=== PATIENT | female | born 1985 | race Caucasian/White ===

== ENCOUNTER 2017-12-05 15:11 | Emergency (ER) | payer MEDICAID, SELFPAY ==
[2017-12-05 15:13] VITALS: BP 139/75; PULSE 122; RESP 17; TEMP 37.7; O2SAT 98; BMI 22.1
[2017-12-05 15:21] VITALS: BP 126/92; PULSE 121; RESP 12; O2SAT 98
--- NOTE | 2017-12-05 15:26 | EKG12_ITS ---
Test Reason : CP Blood Pressure : / mmHG Vent. Rate : 087 BPM Atrial Rate : 087 BPM P-R Int : 126 ms QRS Dur : 078 ms QT Int : 344 ms P-R-T Axes : 057 064 067 degrees QTc Int : 413 ms Normal sinus rhythm Normal ECG Confirmed by DAJUAN LEON, JOURDAN ([id number]), movie editor DEMETRIO ROMERO ([id number] on 12/06/2017 2:28:34 PM Referred By: KYRIE Confirmed By:JOURDAN GRAFF MD
[2017-12-05] MEDS: 0.9% Normal Saline 1,000 ML 1000 ML IV (15:32)
--- NOTE | 2017-12-05 15:32 | ED.VISSUMM ---
- ER Visit Summary Date of Service: 12/05/17 Chief Complaint: Cough, chest pain, fever History of Present Illness: The patient is a 32 F 2 week history cough, chest pain, subjective fevers. Temperatures 99. States has pain with deep breath and coughing in her chest. Indication patient initially saw the urgent care 2 weeks ago had a 10 day course of Zithromax. It felt better for 2 days, symptoms came back 3 days ago. Quit smoking 4 months ago. She was on Depo-Provera, last menstrual period was in October. Urine frequency. States minimal sputum. No recent travel, surgeries, or immobilizations. No history of PE or DVT. History of general anxiety disorder. No current daily medications. Denies history of diabetes, hypertension hypercholesterolemia. Physical Examination: General: Alert and oriented ?3, no acute distress HEENT: Normocephalic, atraumatic. Moist mucosa membranes Neck: supple, nontender. Cardiovascular: Regular tachycardic rate and rhythm, no murmurs Respiratory: Normal breath sounds, symmetric, no distress Abdomen: Soft, nontender, nondistended Extremities: Nontender, no edema, pulses intact ?4 Neuro: no focal neurological deficits. Test Results: EKG sinus rate of 87, no ST or T-wave changes. Troponin negative. D-dimer negative. Labs negative. Chest x-ray 2 views no acute process. Emergency Department Course and Treatment: Patient tachycardic on evaluation. Complaint of chest symptoms pain with deep breaths. Low risk Wells criteria for PE. D-dimer obtained was negative. EKG cardiac workup negative. Chest x-ray negative. Discussed with patient likely recurrent bronchitis symptoms. Unclear why she was treated for 10 days of Zithromax initially. She has no COPD history. She quit smoking 4 months ago. Treated with Toradol for discomfort. She continue Tylenol or NSAIDs at home. She will monitor symptoms. Heart scores a 1. Discussed viral syndrome at this time. There is no pneumonia on x-ray. No indications for antibiotics. She will follow-up with PCP for reevaluation. Return if any worsening symptoms. Treatment Plan: Monitoring Disposition: Discharge Impression: 1. Atypical chest pain 2. Acute bronchitis This note was generated with [employer] software. It may contain incorrect words, spelling, and punctuation that were not noted in review of the chart prior to signing ED Disposition - Plan for ED Patient: Disposition: Home or Assisted Living Chief Complaint: Chest Other Diagnosis: Atypical chest pain, Acute bronchitis Instructions: Acute Bronchitis, ED Chest Pain Atypical Unkn Cause Referrals: Blaise Wetzel DO [Primary Care Provider] - 5-7 Days
--- NOTE | 2017-12-05 15:37 | ED.DCSUM_ITS ---
- ER Visit Summary Date of Service: 12/05/17 Chief Complaint: Cough, chest pain, fever History of Present Illness: The patient is a 32 F 2 week history cough, chest pain, subjective fevers. Temperatures 99. States has pain with deep breath and coughing in her chest. Indication patient initially saw the urgent care 2 weeks ago had a 10 day course of Zithromax. It felt better for 2 days, symptoms came back 3 days ago. Quit smoking 4 months ago. She was on Depo- Provera, last menstrual period was in October. Urine frequency. States minimal sputum. No recent travel, surgeries, or immobilizations. No history of PE or DVT. History of general anxiety disorder. No current daily medications. Denies history of diabetes, hypertension hypercholesterolemia. Physical Examination: General: Alert and oriented ?3, no acute distress HEENT: Normocephalic, atraumatic. Moist mucosa membranes Neck: supple, nontender. Cardiovascular: Regular tachycardic rate and rhythm, no murmurs Respiratory: Normal breath sounds, symmetric, no distress Abdomen: Soft, nontender, nondistended Extremities: Nontender, no edema, pulses intact ?4 Neuro: no focal neurological deficits. Test Results: EKG sinus rate of 87, no ST or T-wave changes. Troponin negative. D-dimer negative. Labs negative. Chest x-ray 2 views no acute process. Emergency Department Course and Treatment: Patient tachycardic on evaluation. Complaint of chest symptoms pain with deep breaths. Low risk Wells criteria for PE. D-dimer obtained was negative. EKG cardiac workup negative. Chest x- ray negative. Discussed with patient likely recurrent bronchitis symptoms. Unclear why she was treated for 10 days of Zithromax initially. She has no COPD history. She quit smoking 4 months ago. Treated with Toradol for discomfort. She continue Tylenol or NSAIDs at home. She will monitor symptoms. Heart scores a 1. Discussed viral syndrome at this time. There is no pneumonia on x-ray. No indications for antibiotics. She will follow-up with PCP for reevaluation. Return if any worsening symptoms. Treatment Plan: Monitoring Disposition: Discharge Impression: 1. Atypical chest pain 2. Acute bronchitis This note was generated with [employer] software. It may contain incorrect words, spelling, and punctuation that were not noted in review of the chart prior to signing ED Disposition - Plan for ED Patient: Disposition: Home or Assisted Living Chief Complaint: Chest Other Diagnosis: Atypical chest pain, Acute bronchitis Instructions: Acute Bronchitis, ED Chest Pain Atypical Unkn Cause Referrals: Blaise Wetzel DO [Primary Care Provider] - 5-7 Days
[2017-12-05 15:45] LABS: Absolute Lymphocyte Count 3.12 X10^3/ul (0.83-4.51); Basophil# 0.03 X10^3/uL; Basophil% 0.3 % (0-1); Eosinophil# 0.08 X10^3/uL; Eosinophils% 0.8 % (0-5); Hematocrit 38.5 % (37-47); Hemoglobin 12.7 g/dl (12.0-15.0); Lymphocyte # 3.12 X10^3/ul (4.0); Lymphocyte % 31.9 % (19-41); Mean Corpuscular Hgb 29.5 pg (27.0-32.0); Mean Corpuscular Volume 89.3 fL (81-99); Mean Platelet Vol. 10.1 fl (6.2-12.0); Monocyte# 0.56 X10^3/uL; Monocyte% 5.7 % (0-10); Neutrophil # 5.97 X10^3/uL (2.7-7.7); Platelet Count 241 K/mm3 (150-450); RBC Distribution Width CV 13.4 % (11.6-14.6); RBC Distribution Width SD 43.2 fl (35.1-43.9); Red Blood Count 4.31 M/mm3 (4.2-5.4); White Blood Count 9.8 K/mm3 (4.4-11.0)
--- NOTE | 2017-12-05 15:50 | RAD_ITS ---
STUDY: X-RAY CHEST REASON FOR EXAM: Female, 32 years old. Cough, chest discomfort and low grade fever for several weeks. TECHNIQUE: PA and lateral views of the chest. COMPARISON: February 07, 2008. FINDINGS: Telemetry wires overlie the chest. The lungs are mildly hyperexpanded. There is chronic interstitial coarsening without focal mass or infiltrate. There is resolution of the left pleural effusion seen on the prior study. Normal size heart. Normal mediastinum and gala. Normal visualized pulmonary arteries. Normal visualized aortic arch and descending thoracic aorta. Normal visualized thoracic spine. Normal visualized ribs, clavicles, and shoulders. There is no demonstrated abnormality of the visualized soft tissue structures of the upper abdomen. Cholecystectomy clips are seen in the right upper quadrant. RAD/Chest PA and Lateral IMPRESSION: No acute cardiopulmonary disease. Electronically Signed: Seymour Villalba DO at 16:16 EST Tel [phone], Service support ,
[2017-12-05 15:55] LABS: POSITIVE COUNT NO; POSITIVE DIFFERENTIAL NO; POSITIVE MORPHOLOGY NO
[2017-12-05 16:04] LABS: D-Dimer Quantitative (DVT/PE) 0.37 FEU/ug/m (0.27-0.49)
[2017-12-05 16:09] LABS: Anion Gap 9 (5-15); BUN 11 mg/dL (7-18); BUN/Creat Ratio 14.4 RATIO (10-20); Calcium,Total 8.7 mg/dL (8.5-10.1); Chloride 107 mmol/L (98-107); Creatinine, Serum 0.76 mg/dL (0.55-1.02); EST Glomerular Filtration Rate 92 mL/min (>60); Est Glom Filt Rate - Afr Amer 111 mL/min (>60); Estimated Creatinine Clearance 101.43 ml/min; Glucose 89 mg/dL (74-106); Potassium 3.8 mmol/L (3.5-5.1); Sodium Level 139 mmol/L (136-145)
[2017-12-05 17:15] LABS: Color, Urine Yellow (Yellow); Glucose, Dipstick Normal (Normal); Ketone-Dipstick Negative (Negative); Leukocyte Esterase-Dipstick 25 /ul (Negative); Nitrite-Dipstick Negative (Negative); Occult Blood-Urine 25 /ul (Negative); Protein-Dipstick Negative (Negative); Urine Bilirubin Dipstick Negative (Negative); Urine Clarity Cloudy (Clear); Urine Urobilinogen Normal (Normal)
[2017-12-05 17:33] LABS: Internal QC Validated? YES +Cl - CLEAR BKGD; Pregnancy, Urine Negative Negative
[2017-12-05] MEDS: Ketorolac 30 MG/ML Syringe IV (17:39)
[2017-12-05 17:50] LABS: Squamous Epithelial Cells - UA 0-5 SEEN /hpf (5-10)
[2017-12-05 17:51] LABS: Mucous, Urine RARE /hpf (<or=2+)
[2017-12-05 17:52] LABS: Bacteria 1+ /hpf (None Seen); Red Blood Cells-Urine 0-5 SEEN /hpf (0-5); White Blood Cells 0-5 SEEN /hpf (0-5)
[2017-12-05 18:34] VITALS: BP 111/68; PULSE 90; RESP 18; O2SAT 98
== END 2017-12-05 18:38 | disposition home or self-care (01) ==
PROVIDERS: Emergency Provider Emergency Medicine; Family Provider Preventive Medicine Occupational Medicine; PCP Preventive Medicine Occupational Medicine
DX: J20.9 Acute bronchitis, unspecified (principal); R07.89 Other chest pain; Z87.891 Personal history of nicotine dependence; F41.1 Generalized anxiety disorder
CPT/HCPCS: 71046; 80048; 81001; 81025; 84484; 85025; 85379; 93005; 96361; 96374; 99284; J7030

== ENCOUNTER 2017-12-29 09:55 | Emergency (ER) | payer MEDICAID, SELFPAY ==
[2017-12-29 09:56] VITALS: BP 122/74; PULSE 91; RESP 14; TEMP 36.8; O2SAT 98; BMI 21.9
--- NOTE | 2017-12-29 10:13 | EKG12_ITS ---
Test Reason : PALPS Blood Pressure : / mmHG Vent. Rate : 076 BPM Atrial Rate : 076 BPM P-R Int : 114 ms QRS Dur : 080 ms QT Int : 360 ms P-R-T Axes : 055 070 074 degrees QTc Int : 405 ms Normal sinus rhythm Normal ECG Confirmed by DAJUAN LEON, JOURDAN ([id number]), script editor DEMETRIO ROMERO ([id number]) on 01/02/2018 1:30:06 PM Referred By: JAMIE Confirmed By:JOURDAN GRAFF MD
--- NOTE | 2017-12-29 10:19 | ED.VISSUMM ---
- ER Visit Summary Date of Service: 12/29/17 Chief Complaint: Palpitations History of Present Illness: The patient is a 32 F with heart palpitations. Symptoms started about 2 weeks ago. She has several episodes per day, lasting about 10 minutes. She feels her heart beating fast. She does feel a heaviness in her chest as well as a squeezing sensation. Currently, she is not having palpitations but she does feel a mild squeezing sensation in her chest. She feels lightheaded. Denies any sweats or nausea. Denies any trouble breathing. It sounds like she has a history of SVT and required cardioversion with adenosine in the past, but she does not remember the details. She denies any other cardiac history. Denies any history of PE or DVT. Denies any history of lung disease or thyroid disease. She quit smoking last year. Physical Examination: Vital signs unremarkable. Heart rate 91 and pulse ox 98%. Afebrile. Patient appears nontoxic and in no acute distress. Heart is regular. Lungs are clear. Skin normal in color. Pulses strong and equal. Calves soft and supple. Test Results: EKG, lab work, and chest x-ray are pending. Emergency Department Course and Treatment: Patient was placed on a monitor while awaiting results. Patient had no events on the monitor or worsening or change in her symptoms. Her EKG, CBC, BMP, troponin, TSH, and orthostatics were all unremarkable. I believe patient is appropriate for further outpatient care. I will refer her to her PCP and also cardiology. I advised her that she may need further outpatient testing, but there is no indication for admission at this point. She should return if she has any new issues. Treatment Plan: As above Disposition: Discharged Impression: 1. Heart palpitations This note was generated with [employer] dictation software. It may contain incorrect words, spelling, and punctuation that were not noted in review of the chart prior to signing ED Disposition - Plan for ED Patient: Chief Complaint: Palpitations Referrals: Blaise Wetzel DO [Primary Care Provider] -
--- NOTE | 2017-12-29 10:24 | RAD_ITS ---
STUDY: X-RAY CHEST REASON FOR EXAM: Female, 32 years old. Chest pain TECHNIQUE: Single AP portable view of the chest. COMPARISON: None. FINDINGS: The lungs are clear and expanded. There is no demonstrated pleural abnormality. Normal size heart. Normal mediastinum and gala. Normal visualized pulmonary arteries. Normal visualized aortic arch and descending thoracic aorta. Normal visualized thoracic spine. Normal visualized ribs, clavicles, and shoulders. There is no demonstrated abnormality of the visualized soft tissue structures of the upper abdomen. RAD/Chest 1 View (Portable) IMPRESSION: Normal x-ray examination of the chest. Electronically Signed: Kenia Rob MD at 10:55 EDT Tel , Service support ,
[2017-12-29 10:45] VITALS: BP 109/63; BP 111/68; BP 111/81; PULSE 70; PULSE 72; PULSE 87
[2017-12-29 10:55] LABS: Absolute Lymphocyte Count 2.26 X10^3/ul (0.83-4.51); Absolute Neutrophil Count 3.5 X10^3/uL (2.0-7.7); Basophil# 0.02 X10^3/uL; Basophil% 0.3 % (0-1); Eosinophil# 0.13 X10^3/uL; Hematocrit 39.4 % (37-47); Hemoglobin 12.6 g/dl (12.0-15.0); Lymphocyte # 2.26 X10^3/ul (4.0); Lymphocyte % 35.1 % (19-41); Mean Corpuscular Hgb 28.6 pg (27.0-32.0); Mean Corpuscular Volume 89.5 fL (81-99); Mean Platelet Vol. 10.2 fl (6.2-12.0); Monocyte# 0.57 X10^3/uL; Monocyte% 8.9 % (0-10); Neutrophil # 3.45 X10^3/uL (2.7-7.7); Neutrophil % 53.5 % (47-70); POSITIVE COUNT NO; POSITIVE DIFFERENTIAL NO; POSITIVE MORPHOLOGY NO; Platelet Count 219 K/mm3 (150-450); RBC Distribution Width CV 13.5 % (11.6-14.6); RBC Distribution Width SD 44.6 fl (35.1-43.9); White Blood Count 6.4 K/mm3 (4.4-11.0)
[2017-12-29 10:57] VITALS: O2SAT 99
[2017-12-29 11:13] LABS: Anion Gap 6 (5-15); BUN 7 mg/dL (7-18); BUN/Creat Ratio 10.9 RATIO (10-20); Calcium,Total 8.7 mg/dL (8.5-10.1); Chloride 110 mmol/L (98-107); Creatinine, Serum 0.64 mg/dL (0.55-1.02); EST Glomerular Filtration Rate 112 mL/min (>60); Est Glom Filt Rate - Afr Amer 136 mL/min (>60); Estimated Creatinine Clearance 120.45 ml/min; Glucose 104 mg/dL (74-106); Potassium 4.1 mmol/L (3.5-5.1); Sodium Level 143 mmol/L (136-145); Thyroid Stim Hormone (TSH) 1.69 uIU/mL (0.358-3.74)
[2017-12-29 11:18] LABS: Pregnancy, Serum, hCG Quali. NEGATIVE Negative (0-9 Nonpreg)
--- NOTE | 2017-12-29 11:43 | ED.DEP ---
ED Disposition - Plan for ED Patient: Chief Complaint: Palpitations Instructions: ED Palpitations Referrals: Blaise Wetzel DO [Primary Care Provider] - Trace Krause MD [STAFF PHYSICIAN] -
[2017-12-29 12:03] VITALS: BP 109/71; PULSE 71; RESP 18; O2SAT 99
== END 2017-12-29 12:04 | disposition home or self-care (01) ==
PROVIDERS: Emergency Provider Emergency Medicine; Family Provider Preventive Medicine Occupational Medicine; PCP Preventive Medicine Occupational Medicine
DX: R00.2 Palpitations (principal); Z87.891 Personal history of nicotine dependence
CPT/HCPCS: 71045; 80048; 84443; 84484; 84703; 85025; 93005; 99285; A4216

== ENCOUNTER 2018-03-08 12:17 | Emergency (ER) | payer MEDICAID, SELFPAY ==
[2018-03-08 12:19] VITALS: BP 115/84; PULSE 131; RESP 16; TEMP 37.1; O2SAT 98; BMI 21.9
--- NOTE | 2018-03-08 12:36 | ED.DCSUM_ITS ---
- ER Visit Summary Date of Service: 03/08/18 Chief Complaint: Abdominal pain History of Present Illness: The patient is a 33 F with a 2 day history of generalized abdominal cramping and some mild diarrhea. Now she has sharp pain in epigastric and left upper quadrant. She states it feels like her prior pancreatitis. She has had a couple episodes of vomiting. She denies any alcohol consumption in the last 2 years. She has had a prior cholecystectomy. Physical Examination: Vital signs are significant for tachycardia with a heart rate of 131, otherwise unremarkable. Patient sitting upright in bed. She is in no acute distress but does appear uncomfortable. Head neck examination is normal. Heart is regular rhythm but tachycardic. Lung sounds are clear. Abdomen is soft with tenderness in the epigastric region as well as left upper quadrant. She has no guarding or rebound on exam. Hypoactive bowel sounds are noted throughout. Test Results: CBC and chemistry studies normal. LFTs and lipase normal. test negative. Emergency Department Course and Treatment: Patient is given morphine, Zofran, and IV fluids. Repeat evaluation she reports her pain is improved but nausea starting to come back. She is given a second dose of Zofran. At this time patient be discharged home with injections to follow bland diet. She be given Zofran and limited oxycodone for home. At the time of discharge vital signs include blood pressure 109/74 and a heart rate of 87. Treatment Plan: [] Disposition: Discharge Impression: Abdominal pain, uncertain etiology This note was generated with [employer] dictation software. It may contain incorrect words, spelling, and punctuation that were not noted in review of the chart prior to signing ED Disposition - Plan for ED Patient: Disposition: Home or Assisted Living Chief Complaint: Abd Pain Instructions: ED Abdominal Pain Unkn Cause Prescriptions: Oxycodone [Oxyir] 5 mg PO Q4H PRN PRN 4 Days #14 tablet PRN Reason: Pain Ondansetron [Zofran Odt] 4 mg PO Q8H PRN PRN #10 tab PRN Reason: Nausea Referrals: Blaise Wetzel DO [Primary Care Provider] - 5-7 Days
[2018-03-08 12:49] LABS: Absolute Lymphocyte Count 1.28 X10^3/ul (0.83-4.51); Absolute Neutrophil Count 3.7 X10^3/uL (2.0-7.7); Basophil# 0.01 X10^3/uL; Basophil% 0.2 % (0-1); Eosinophil# 0.03 X10^3/uL; Eosinophils% 0.5 % (0-5); Hematocrit 40.3 % (37-47); Hemoglobin 13.5 g/dl (12.0-15.0); Lymphocyte # 1.28 X10^3/ul (4.0); Lymphocyte % 21.4 % (19-41); Mean Corp Hgb Conc 33.5 g/gl (32-36); Mean Corpuscular Hgb 29.7 pg (27.0-32.0); Mean Corpuscular Volume 88.6 fL (81-99); Mean Platelet Vol. 9.8 fl (6.2-12.0); Monocyte# 0.98 X10^3/uL; Monocyte% 16.4 % (0-10); Neutrophil # 3.67 X10^3/uL (2.7-7.7); Neutrophil % 61.3 % (47-70); Platelet Count 219 K/mm3 (150-450); RBC Distribution Width CV 13.6 % (11.6-14.6); RBC Distribution Width SD 43.9 fl (35.1-43.9); Red Blood Count 4.55 M/mm3 (4.2-5.4)
[2018-03-08] MEDS: 0.9% Normal Saline 1,000 ML 1000 ML IV (12:50)
[2018-03-08] MEDS: Morphine 4 MG/ML Syringe IV (12:50)
[2018-03-08] MEDS: Ondansetron 4 MG/2 ML Vial IV ×2 (12:50→14:57)
[2018-03-08 12:53] LABS: POSITIVE COUNT NO; POSITIVE DIFFERENTIAL NO; POSITIVE MORPHOLOGY NO
[2018-03-08 13:04] LABS: AST(SGOT) 24 U/L (15-37); Alanine Aminotransfer ALT/SGPT 34 U/L (13-56); Albumin, Serum 3.8 g/dL (3.2-5.0); Alkaline Phosphatase 108 U/L (45-117); Anion Gap 12 (5-15); BUN 9 mg/dL (7-18); BUN/Creat Ratio 14.2 RATIO (10-20); Bilirubin, Direct 0.06 mg/dL (0.00-0.30); Calcium,Total 8.7 mg/dL (8.5-10.1); Chloride 104 mmol/L (98-107); Creatinine, Serum 0.63 mg/dL (0.55-1.02); EST Glomerular Filtration Rate 114 mL/min (>60); Est Glom Filt Rate - Afr Amer 138 mL/min (>60); Globulin 3.9 g/dL (2.2-4.2); Glucose 89 mg/dL (74-106); Lipase 31 U/L (73-393); Potassium 3.9 mmol/L (3.5-5.1); Protein, Total 7.7 g/dL (6.4-8.2); Sodium Level 140 mmol/L (136-145)
[2018-03-08 13:10] LABS: Pregnancy, Serum, hCG Quali. NEGATIVE Negative (0-9 Nonpreg)
[2018-03-08] MEDS: 0.9% Normal Saline 1,000 ML 150 ML IV (14:14)
--- NOTE | 2018-03-08 14:57 | ED.DEP ---
ED Disposition - Plan for ED Patient: Disposition: Home or Assisted Living Chief Complaint: Abd Pain Instructions: ED Abdominal Pain Unkn Cause Prescriptions: Oxycodone [Oxyir] 5 mg PO Q4H PRN PRN 4 Days #14 tablet PRN Reason: Pain Ondansetron [Zofran Odt] 4 mg PO Q8H PRN PRN #10 tab PRN Reason: Nausea Referrals: Blaise Wetzel DO [Primary Care Provider] - 5-7 Days
[2018-03-08 15:07] VITALS: BP 109/74; PULSE 87; RESP 16; O2SAT 97; O2SAT 99
== END 2018-03-08 15:12 | disposition home or self-care (01) ==
PROVIDERS: Emergency Provider Emergency Medicine; Family Provider Preventive Medicine Occupational Medicine; PCP Preventive Medicine Occupational Medicine
DX: R10.13 Epigastric pain (principal); R10.12 Left upper quadrant pain; Z90.49 Acquired absence of other specified parts of digestive tract; Z87.891 Personal history of nicotine dependence
CPT/HCPCS: 80048; 80076; 83690; 84703; 85025; 96361; 96374; 96375; 96376; 99282; J7030; A4216; J2405

== ENCOUNTER 2018-04-02 16:40 | Emergency (ER) | payer MEDICAID, SELFPAY ==
[2018-04-02 16:41] VITALS: BP 123/73; PULSE 98; RESP 24; TEMP 36.9; O2SAT 100; BMI 21.7
--- NOTE | 2018-04-02 16:52 | ED.VISSUMM ---
- ER Visit Summary Date of Service: 04/02/18 Chief Complaint: Abdominal pain History of Present Illness: The patient is a 33 F with abdominal pain increasing over the past 4 days. The pain is mostly in her left upper quadrant and radiates through to the back. She thought it might be related to her pancreatitis. She had this in the past as a complication from gallstone disease. Patient reports nausea and loose stools. Denies vomiting. Denies fevers. Denies any urinary symptoms. His history of cholecystectomy and appendectomy. Physical Examination: Afebrile vital signs unremarkable. She is alert and oriented. No acute distress. Appears normal. No pallor or jaundice. Heart regular rate and rhythm. Lungs clear. Abdomen tender in the left upper quadrant. No guarding or rebound. Back is nontender. Test Results: Laboratory studies and urinalysis pending. Emergency Department Course and Treatment: Treated with fluids, morphine, and Zofran while awaiting results. Workup was unremarkable. I have low suspicion for pancreatitis. Her reevaluation is improved. No indication for imaging or further testing. No indication for hospitalization. Patient was advised to follow-up with her primary care doctor. Return for any new or worsening issues. Treatment Plan: As above Disposition: Discharged Impression: 1. Abdominal pain This note was generated with [employer] dictation software. It may contain incorrect words, spelling, and punctuation that were not noted in review of the chart prior to signing ED Disposition - Plan for ED Patient: Chief Complaint: Abd Pain Referrals: Blaise Wetzel DO [Primary Care Provider] -
[2018-04-02] MEDS: Morphine 4 MG/ML Syringe IV (17:08)
[2018-04-02] MEDS: 0.9% Normal Saline 1,000 ML 1000 ML IV (17:08)
[2018-04-02] MEDS: Ondansetron 4 MG/2 ML Vial IV (17:08)
[2018-04-02 17:14] LABS: Absolute Lymphocyte Count 3.07 X10^3/ul (0.83-4.51); Absolute Neutrophil Count 5.8 X10^3/uL (2.0-7.7); Basophil# 0.04 X10^3/uL; Basophil% 0.4 % (0-1); Eosinophil# 0.06 X10^3/uL; Eosinophils% 0.6 % (0-5); Hematocrit 38.2 % (37-47); Hemoglobin 12.5 g/dl (12.0-15.0); Lymphocyte # 3.07 X10^3/ul (4.0); Lymphocyte % 32.1 % (19-41); Mean Corp Hgb Conc 32.7 g/gl (32-36); Mean Corpuscular Hgb 28.9 pg (27.0-32.0); Mean Corpuscular Volume 88.4 fL (81-99); Mean Platelet Vol. 9.9 fl (6.2-12.0); Monocyte# 0.59 X10^3/uL; Monocyte% 6.2 % (0-10); Neutrophil # 5.79 X10^3/uL (2.7-7.7); Neutrophil % 60.7 % (47-70); Platelet Count 214 K/mm3 (150-450); RBC Distribution Width CV 13.7 % (11.6-14.6); RBC Distribution Width SD 44.4 fl (35.1-43.9); Red Blood Count 4.32 M/mm3 (4.2-5.4); White Blood Count 9.6 K/mm3 (4.4-11.0)
[2018-04-02 17:20] LABS: POSITIVE COUNT NO; POSITIVE DIFFERENTIAL NO; POSITIVE MORPHOLOGY NO
[2018-04-02 17:44] LABS: ALB/GLOB Ratio 1.1 RATIO (0.9-2.4); AST(SGOT) 20 U/L (15-37); Alanine Aminotransfer ALT/SGPT 29 U/L (13-56); Alkaline Phosphatase 93 U/L (45-117); Anion Gap 7 (5-15); BUN 10 mg/dL (7-18); BUN/Creat Ratio 15.4 RATIO (10-20); Calcium,Total 8.5 mg/dL (8.5-10.1); Chloride 107 mmol/L (98-107); Creatinine, Serum 0.65 mg/dL (0.55-1.02); EST Glomerular Filtration Rate 111 mL/min (>60); Est Glom Filt Rate - Afr Amer 134 mL/min (>60); Estimated Creatinine Clearance 117.47 ml/min; Globulin 3.5 g/dL (2.2-4.2); Glucose 86 mg/dL (74-106); Lipase 28 U/L (73-393); Potassium 3.5 mmol/L (3.5-5.1); Protein, Total 7.5 g/dL (6.4-8.2); Sodium Level 142 mmol/L (136-145)
[2018-04-02 17:59] LABS: Pregnancy, Serum, hCG Quali. NEGATIVE Negative (0-9 Nonpreg)
[2018-04-02 18:16] LABS: Color, Urine Yellow (Yellow); Glucose, Dipstick Normal (Normal); Ketone-Dipstick 5 mg/dl (Negative); Leukocyte Esterase-Dipstick Negative /ul (Negative); Nitrite-Dipstick Negative (Negative); Occult Blood-Urine 25 /ul (Negative); Protein-Dipstick Negative (Negative); Urine Bilirubin Dipstick Negative (Negative); Urine Clarity Sl. Cloudy (Clear); Urine Urobilinogen Normal (Normal)
[2018-04-02 18:54] LABS: Bacteria 1+ /hpf (None Seen); Mucous, Urine 3+ /hpf (<or=2+); Red Blood Cells-Urine 0-5 SEEN /hpf (0-5); Squamous Epithelial Cells - UA 0-5 SEEN /hpf (5-10); White Blood Cells 0-5 SEEN /hpf (0-5)
--- NOTE | 2018-04-02 19:20 | ED.DEP ---
ED Disposition - Plan for ED Patient: Chief Complaint: Abd Pain Instructions: ED Abdominal Pain Unkn Cause Referrals: Blaise Wetzel DO [Primary Care Provider] -
[2018-04-02 19:40] VITALS: BP 101/64; PULSE 71; RESP 16; O2SAT 99
== END 2018-04-02 19:41 | disposition home or self-care (01) ==
PROVIDERS: Emergency Provider Emergency Medicine; Family Provider Preventive Medicine Occupational Medicine; PCP Preventive Medicine Occupational Medicine
DX: R10.9 Unspecified abdominal pain (principal); R11.0 Nausea; R19.7 Diarrhea, unspecified; Z87.891 Personal history of nicotine dependence; Z90.49 Acquired absence of other specified parts of digestive tract
CPT/HCPCS: 80053; 81001; 83690; 84703; 85025; 96361; 96374; 96375; 99283; J7030; A4216; J2405

== ENCOUNTER 2018-06-16 09:22 | Emergency (ER) | payer MEDICAID, SELFPAY ==
[2018-06-16 09:23] VITALS: BP 123/74; PULSE 112; RESP 16; TEMP 36.8; BMI 21.9
[2018-06-16] MEDS: Ondansetron ODT 4 MG Tablet PO (09:49)
[2018-06-16] MEDS: morphine 8 MG/ML Syringe SC (09:50)
[2018-06-16] MEDS: Orphenadrine 100 MG Tablet PO (09:50)
[2018-06-16] MEDS: Ketorolac 60 MG/2 ML Vial IM (09:50)
--- NOTE | 2018-06-16 09:52 | ED.VISSUMM ---
- ER Visit Summary Date of Service: 06/16/18 Chief Complaint: [] Lumbar back pain radiating to right buttock History of Present Illness: The patient is a 33 F [] history of lumbar back pain prior lumbar back surgery about 11 years ago she can she has occasional flareups indicates on Monday she strains of pain to the lumbar back to rate her right buttock it is persisted, she has no numbness 6 paresthesias down the right buttock, she has no difficulty bowel bladder habits, no trauma no abdominal pain no fever no cough and again normal bowel bladder habits the symptoms persisted she came in for evaluation she usually takes [id number] nonsteroidals and her back pain flares 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 but denies being Physical Examination: [] pain to the low lumbar back into the right buttock, her vital signs are unremarkable heart rate 110 but she is bracing her body she is obviously in discomfort HEENT cardiac lung abdominal exam unremarkable soft nontender the low lumbar back is a vague pain that radiates into the right buttock she is able to stand and walk she is able to toe raise heel raise walk bend her knees there is no signs of cauda equina there is no motor sensory cerebral pallor deficit she again indicates the radiation is just to her buttock she has no direct trauma the back exams otherwise unremarkable neurologic exam is otherwise unremarkable Test Results: [] Emergency Department Course and Treatment: [] I had a long conversation with her discussed all the above at this time is no signs of cauda equina or anything acute or life-threatening she has had back pain flares in the past at this time she will be treated with morphine, Toradol, Norflex, Zofran, she was placed off work as she scheduled to work today she will follow-up with her back surgeons who are in the area and return for any worsening symptoms or's any signs of suggest cauda equina such as weakness bowel or bladder complaints she is very comfortable and understands this plan and agrees Treatment Plan: [] Disposition: [] Home stable Impression: [] Acute recurrent lumbar back pain, history of lumbar back pain in the past This note was generated with [email or web address] dictation software. It may contain incorrect words, spelling, and punctuation that were not noted in review of the chart prior to signing ED Disposition - Plan for ED Patient: Chief Complaint: Back Referrals: Blaise Wetzel DO [Primary Care Provider] -
--- NOTE | 2018-06-16 09:54 | ED.DEP ---
ED Disposition - Plan for ED Patient: Chief Complaint: Back Instructions: ED Spasm Back No Trauma, ED Sprain Strain Lumbar Prescriptions: Naproxen [Naprosyn] 500 mg PO BID PRN #20 tab Cyclobenzaprine [Flexeril] 10 mg PO TID PRN #10 tab PRN Reason: Muscle Spasm Referrals: Blaise Wetzel DO [Primary Care Provider] -
== END 2018-06-16 10:15 | disposition home or self-care (01) ==
LOC: ED 09:57
PROVIDERS: Emergency Provider Emergency Medicine; Family Provider Preventive Medicine Occupational Medicine; PCP Preventive Medicine Occupational Medicine
DX: M54.5 Low back pain (principal); G89.29 Other chronic pain
CPT/HCPCS: 96372; 99281

== ENCOUNTER 2018-07-12 15:43 | Emergency (ER) | payer MEDICAID, SELFPAY ==
[2018-07-12 15:44] VITALS: BP 110/88; PULSE 124; RESP 15; TEMP 36.9; O2SAT 98; BMI 22.1
--- NOTE | 2018-07-12 15:58 | ED.DCSUM_ITS ---
- ER Visit Summary Date of Service: 07/12/18 Chief Complaint: Back pain History of Present Illness: The patient is a 33 F with a history of herniated disks and prior back surgery. Patient states she rolled over in bed 2 days ago and pulled her lower back. It tightened up throughout the day on Monday and she went to the chiropractor yesterday, not able to go to work. Patient been taking ibuprofen without significant improvement. Pain starts to radiate down into the right buttock, but does not extend down her leg. There is no direct trauma to her back. Physical Examination: Vital signs significant for heart rate of 125, otherwise unremarkable. Head neck examination unremarkable. Heart is tachycardic and regular. Lung sounds are clear. Abdomen is soft nontender. Back examination reveals tenderness in the bilateral lumbar paraspinals L3 through L5, right greater than left. Lower extreme examination reveals good strength and sensation. She has strong and equal distal pulses. Test Results: [] Emergency Department Course and Treatment: Patient is given an IM injection of morphine and Norflex here. She is to continue ibuprofen at home. She will be given a very short course of oxycodone for breakthrough pain along with Norflex for muscle spasm. Treatment Plan: [] Disposition: Discharge Impression: Lumbar back sprain This note was generated with [employer] dictation software. It may contain incorrect words, spelling, and punctuation that were not noted in review of the chart prior to signing ED Disposition - Plan for ED Patient: Disposition: Home or Assisted Living Chief Complaint: Back Instructions: ED Sprain Strain Lumbar Prescriptions: Oxycodone [Oxyir] 5 mg PO Q6H PRN PRN 4 Days #12 tablet PRN Reason: Pain Orphenadrine [Norflex ER] 100 mg PO BID PRN #10 tablet PRN Reason: Spasms Referrals: Blaise Wetzel DO [Primary Care Provider] - 5-7 Days
--- NOTE | 2018-07-12 16:02 | DCINST.ED_ITS ---
ED Disposition - Plan for ED Patient: Disposition: Home or Assisted Living Chief Complaint: Back Instructions: ED Sprain Strain Lumbar Prescriptions: Oxycodone [Oxyir] 5 mg PO Q6H PRN PRN 4 Days #12 tablet PRN Reason: Pain Orphenadrine [Norflex ER] 100 mg PO BID PRN #10 tablet PRN Reason: Spasms Referrals: Blaise Wetzel DO [Primary Care Provider] - 5-7 Days
[2018-07-12] MEDS: Orphenadrine 60 MG/2 ML Ampul IM (16:11)
[2018-07-12] MEDS: Morphine 4 MG/ML Syringe 8 MG IM (16:12)
== END 2018-07-12 16:42 | disposition home or self-care (01) ==
LOC: ED 16:16
PROVIDERS: Emergency Provider Emergency Medicine; Family Provider Preventive Medicine Occupational Medicine; PCP Preventive Medicine Occupational Medicine
DX: S33.5XXA Sprain of ligaments of lumbar spine, initial encounter (principal); X50.9XXA Other and unspecified overexertion or strenuous movements or postures, initial encounter; Y93.9 Activity, unspecified; Y92.9 Unspecified place or not applicable; J45.909 Unspecified asthma, uncomplicated; G43.909 Migraine, unspecified, not intractable, without status migrainosus; Z87.19 Personal history of other diseases of the digestive system; Z72.0 Tobacco use
CPT/HCPCS: 96372; 99282

== ENCOUNTER → 2018-12-22 14:49 | Outpatient (CLI) | payer MEDICAID, SELFPAY ==
[2018-12-21 17:47] VITALS: BMI 22.4
[2018-12-22 14:52] LABS: Bacteria 0 SEEN /hpf (None Seen); Mucous, Urine 0 SEEN /hpf (<or=2+); Red Blood Cells-Urine 0 SEEN /hpf (0-5); White Blood Cells 0 SEEN /hpf (0-5)
[2018-12-22 14:54] LABS: Color, Urine Yellow (Yellow); Glucose, Dipstick Normal (Normal); Ketone-Dipstick Negative (Negative); Leukocyte Esterase-Dipstick Negative /ul (Negative); Nitrite-Dipstick Negative (Negative); Occult Blood-Urine 10 /ul (Negative); Protein-Dipstick Negative (Negative); Urine Bilirubin Dipstick Negative (Negative); Urine Clarity Clear (Clear); Urine Urobilinogen Normal (Normal)
[2018-12-22 15:01] LABS: Squamous Epithelial Cells - UA 5-10 SEEN /hpf (5-10)
== END ==
PROVIDERS: Physician Assistant Surgical; Family Provider Preventive Medicine Occupational Medicine; PCP Preventive Medicine Occupational Medicine; Referring Provider Physician Assistant Medical; Visit Provider Physician Assistant Medical
DX: R30.0 Dysuria (principal)
CPT/HCPCS: 81001; 87086

== ENCOUNTER → 2019-01-11 07:45 | Outpatient (CLI) | payer MEDICAID, SELFPAY ==
[2018-12-21 17:47] VITALS: BMI 22.4
--- NOTE | 2019-01-11 07:52 | ECHOD_ITS ---
Reason For Study: PALPITATIONS Procedure This was a 2D Doppler, Color Flow transthoracic echocardiogram. Exam performed in department. Left Ventricle Normal LV size. Left ventricular systolic function is normal. The estimated ejection fraction is 65 %. Stage 2 diastolic dysfunction. No regional wall motion abnormalities noted. Right Ventricle Normal RV size. Normal systolic function. Atria Normal left atrium. Normal right atrium. Mitral Valve Normal mitral valve. Tricuspid Valve Normal tricuspid valve. Mild tricuspid valve insufficiency. Aortic Valve Normal aortic valve. Trisinus/trileaflet aortic valve. Pulmonic Valve Normal pulmonic valve. Great Vessels Normal aortic root. The pulmonary artery is normal size. Normal inferior vena cava. Pericardium/Pleural No pericardial effusion. MMode/2D Measurements & Calculations LVIDd: 4.9 cm IVSd: 0.65 cm Ao root diam: 2.6 cm LVIDs: 3.2 cm LVPWd: 0.75 cm RVDd: 2.6 cm FS: 33.3 % LAV(MOD-bp): 36.6 ml LA A4 area: 14.4 cm2 LA dimension(2D): 3.8 cm LAV(MOD-bp) Indexed: 20.6 ml/m2 LAV(MOD-sp2): 35.5 ml LAV(MOD-sp4): 33.9 ml RA A4 area: 14.4 cm2 Time Measurements MV dec time: 0.26 sec Doppler Measurements & Calculations MV E max christiano: 72.6 cm/sec Lat Peak E' Christiano: 19.2 cm/sec Med Peak E' Christiano: 11.4 cm/sec MV A max christiano: 45.1 cm/sec E/E' lat: 3.8 E/E' med: 6.4 MV E/A: 1.6 Ao V2 max: 140.1 cm/sec LV V1 max: 102.0 cm/sec PA V2 max: 109.6 cm/sec Ao max P.9 mmHg LV V1 max P.2 mmHg TR max christiano: 221.3 cm/sec TR max P.7 mmHg Interpretation Summary Normal LV size. Left ventricular systolic function is normal. The estimated ejection fraction is 65 %. Stage 2 diastolic dysfunction. Mild tricuspid valve insufficiency. Ordering Physician: Blaise Wetzel Referring Physician: Blaise Wetzel Performed By: Suzanna Collier, CHASITY, RVT
== END ==
PROVIDERS: Family Provider Preventive Medicine Occupational Medicine; PCP Preventive Medicine Occupational Medicine; Referring Provider Preventive Medicine Occupational Medicine; Visit Provider Preventive Medicine Occupational Medicine
DX: R00.2 Palpitations (principal)
CPT/HCPCS: 93225; 93226; 93306

== ENCOUNTER → 2019-03-11 | Outpatient (CLI) | payer MEDICAID, SELFPAY ==
[2018-12-21 17:47] VITALS: BMI 22.4
[2019-03-11 07:40] LABS: Hematocrit 38.4 % (37-47); Hemoglobin 12.6 g/dl (12.0-15.0); Mean Corp Hgb Conc 32.8 g/gl (32-36); Mean Corpuscular Hgb 29.9 pg (27.0-32.0); Mean Platelet Vol. 10.7 fl (6.2-12.0); Platelet Count 224 K/mm3 (150-450); RBC Distribution Width CV 13.6 % (11.6-14.6); Red Blood Count 4.22 M/mm3 (4.2-5.4)
[2019-03-11 07:44] LABS: Scan Indicated on CBC? Y/N NO
[2019-03-11 08:03] LABS: AST(SGOT) 19 U/L (15-37); Alanine Aminotransfer ALT/SGPT 33 U/L (13-56); Albumin, Serum 3.7 g/dL (3.2-5.0); Alkaline Phosphatase 65 U/L (45-117); Anion Gap 8 (5-15); BUN 11 mg/dL (7-18); BUN/Creat Ratio 18.8 RATIO (10-20); Calcium,Total 8.6 mg/dL (8.5-10.1); Chloride 105 mmol/L (98-107); Creatinine, Serum 0.58 mg/dL (0.55-1.02); EST Glomerular Filtration Rate 124 mL/min (>60); Est Glom Filt Rate - Afr Amer 150 mL/min (>60); Globulin 3.8 g/dL (2.2-4.2); Glucose 85 mg/dL (74-106); Lipase 26 U/L (73-393); Protein, Total 7.5 g/dL (6.4-8.2); Sodium Level 142 mmol/L (136-145)
== END | disposition home or self-care (01) ==
PROVIDERS: Family Provider Preventive Medicine Occupational Medicine; PCP Preventive Medicine Occupational Medicine; Referring Provider Nurse Practitioner Family; Visit Provider Nurse Practitioner Family
DX: R10.11 Right upper quadrant pain (principal)
CPT/HCPCS: 36415; 80053; 83690; 85027

== ENCOUNTER 2019-04-21 22:10 | Emergency (ER) | payer MEDICAID, SELFPAY ==
[2018-12-21 17:47] VITALS: BMI 22.4
[2019-04-21 22:11] VITALS: BP 117/72; PULSE 107; RESP 16; TEMP 37.1; O2SAT 98; BMI 22.7
--- NOTE | 2019-04-21 22:24 | EKG12_ITS ---
Test Reason : DIZZINESS Blood Pressure : / mmHG Vent. Rate : 084 BPM Atrial Rate : 084 BPM P-R Int : 148 ms QRS Dur : 090 ms QT Int : 350 ms P-R-T Axes : 065 055 046 degrees QTc Int : 413 ms Normal sinus rhythm Normal ECG Confirmed by DAJUAN LEON, JOURDAN ([id number]), assignment desk editor HENNA DOMÍNGUEZ ([id number]) on 04/23/2019 1:57:11 PM Referred By: DAYANA Confirmed By:JOURDAN GRAFF MD
[2019-04-21] MEDS: Ondansetron ODT 4 MG Tablet PO (22:36)
[2019-04-21 22:45] LABS: Hematocrit 37.6 % (37-47); Hemoglobin 12.4 g/dl (12.0-15.0); Mean Corpuscular Hgb 29.9 pg (27.0-32.0); Mean Corpuscular Volume 90.6 fL (81-99); Mean Platelet Vol. 9.8 fl (6.2-12.0); Platelet Count 226 K/mm3 (150-450); RBC Distribution Width CV 13.7 % (11.6-14.6); RBC Distribution Width SD 45.5 fl (35.1-43.9); Red Blood Count 4.15 M/mm3 (4.2-5.4); White Blood Count 11.1 K/mm3 (4.4-11.0)
[2019-04-21 22:49] LABS: Scan Indicated on CBC? Y/N NO
[2019-04-21 23:04] LABS: Anion Gap 5 (5-15); BUN 15 mg/dL (7-18); BUN/Creat Ratio 18.9 RATIO (10-20); Calcium,Total 8.5 mg/dL (8.5-10.1); Chloride 106 mmol/L (98-107); Creatinine, Serum 0.79 mg/dL (0.55-1.02); EST Glomerular Filtration Rate 87 mL/min (>60); Est Glom Filt Rate - Afr Amer 106 mL/min (>60); Estimated Creatinine Clearance 95.74 ml/min; Glucose 106 mg/dL (74-106); Potassium 3.5 mmol/L (3.5-5.1); Sodium Level 139 mmol/L (136-145)
--- NOTE | 2019-04-21 23:54 | ED.DCSUM_ITS ---
History of Present Illness Chief Complaint: Dizziness Detail of Chief Complaint: Also complains of rubbery legs and chest discomfort Informant: Patient Onset: Today - Dizziness started today, Weeks - Chest pain for approximately 1 week Context: Sudden Onset Timing: - - Reports dizziness that is constant worse with change in position. She also complains of chest pain that is midsternal with no associated symptoms or radiation for approximately 1 week. She denied any exacerbating, precipitating or alleviating factors Quality: Movements with blurred vision and chest pain Location: Head swimming with regards to vertigo mid chest Current Severity: Mild Maximum Severity: Moderate Worsened by: Nothing with regards to the chest pain movement regarding vertigo Relieved by: Nothing Associated Symptoms: Nausea associated with vertigo Narrative: Patient is a 34-year-old woman who is a former smoker who presents with multiple complaints. She complains of her legs feeling rubbery as if they are going to collapse. She also describes vertigo with blurred by ocular vision. She denies headache. She denies trouble with speech or swallowing. She denies paresthesia, anesthesia buttocks. She states she has trouble walking and feels as if she is going to the right. She denied double vision. She denied any URI symptoms. She denied respiratory symptoms. She denies urologic symptoms. Prior similar symptoms: No Recent Illness/Hospitalization: No - Past Medical History (1) Bladder spasms Status: Acute (2) MISBAH (generalized anxiety disorder) Status: Chronic Past Medical History - Allergies and Home Meds Allergies/Adverse Reactions: Allergies adhesive Allergy (Verified 04/21/19 22:13) Rash erythromycin base [Erythromycin Base] Allergy (Verified 04/21/19 22:13) Hives estradiol Allergy (Verified 04/21/19 22:13) Anaphylaxis Penicillins [PCN] Allergy (Verified 04/21/19 22:13) Anaphylaxis acetaminophen [From Tylenol] Adverse Reaction (Verified 04/21/19 22:13) Vomiting ferrous sulfate Adverse Reaction (Verified 04/21/19 22:13) Other Primary Care Physician: Blaise Wetzel DO [Primary Care Provider] - Surgical History: cholecystectomy Lives: Spouse/ Significant Other Smoking Status: Former smoker Alcohol: Rare Drugs: None Review of Systems General: Denies: Chills, Fever, Malaise, Subjective, Sweats, Weight loss, - Eyes: Reports: Blurred Vision - bilaterally. Denies: Visual changes - bilaterally, Diplopia Cardiovascular: Reports: Chest pain. Denies: Palpitations, Heart racing, -, - Respiratory: Denies: Dyspnea, Cough, Sputum, Dyspnea on exertion, Orthopnea, Paroxysmal nocturnal dyspnea, -, - Gastrointestinal: Reports: Nausea. Denies: Abdominal pain, Vomiting, Diarrhea, Constipation, Melena, Hematochezia, -, - Genitourinary: Denies: Dysuria, Hematuria, Frequency Musculoskeletal: Denies: Myalgias, Arthralgias, Neck pain, Back pain, Swelling, Extremity Pain, -, - Neurological: Denies: Headache, Weakness, Parasthesia, Numbness, -, - Endocrine: Denies: Polyuria, Polydipsia Hematologic: Denies: Easy bruising, Easy bleeding Allergy: Denies: Uticaria, Swelling of the mouth, Swelling of the tongue Physical Exam Vital Signs/Narrative: Vital Signs Temp Pulse Resp BP Pulse Ox 04/21/19 22:11 98.8 F 107 H 16 117/72 98 Inital Vital Signs reviewed: Yes General: Well nourished, Well developed, No Acute Distress Eyes: Perrl, EOMI. Negative for: Pale conjunctiva, Scleral icterus, - ENT: Moist mucous membranes, No rhinorrhea, TM's clear Neck: Supple, Nontender, No lymphadenopathy, No JVD, - - Neck is supple. Trachea is midline. There is no stridor. Cardiovascular: Regular rate, Regular rhythm, No murmurs, Normal S1, Normal S2 Respiratory: No distress, CTA bilaterally, Chest nontender Abdomen: Soft, Nontender, Nondistended, Normal bowel sounds, No masses Back: Nontender, Normal Inspection. Negative for: CVA tenderness Extremities: Nontender, No edema Skin: Normal color, No rash. Negative for: Cyanosis, Diaphoresis, Jaundice, No Trauma Neurological: Alert, Oriented x3, Cranial nerves II-XII grossly intact, Normal Strength, Normal Sensation, Normal DTR - There is no clonus or Babinski sign noted., Normal Gait, - - Gayla-Hallpike maneuver caused her to feel nauseous and increased motion. There was no nystagmus, however. She states her symptoms were worse with her head position to the right. The ISU test was negative. The HINT test was negative. Psychological: Normal affect, Normal Mood Diagnostic/Tx/Re-eval - EKG Initial EKG Interpretation: Sinus Rhythm - EKG is normal. Ventricular rate is 84. [place] interval is 148 ms. QRS duration is 90 ms. QT duration is 350 ms. [place] is normal. - Medical Decision Making Was administered 4 mg of Zofran ODT for her nausea. Because she complained of chest pain former smoker EKG and troponin were obtained. EKG was unremarkable. Laboratory tests were unremarkable. Troponin Is normal. Blood work is unremarkable. Because the Frankenmuth-Hallpike maneuver caused her worsening symptoms and Debby maneuver was performed. She had no nystagmus. Her vertigo never resolved. A CT of the head was obtained and she was ordered 1.5 mg of Versed. Patient's care was turned over to night physician to make disposition once scan has been read and patient's been reevaluated. ED Disposition - Plan for ED Patient: Diagnosis: Vertigo, Central chest pain Referrals: Blaise Wetzel DO [Primary Care Provider] -
[2019-04-22] MEDS: Midazolam 2 MG/2 ML Syringe 1.5 MG IV (00:01)
--- NOTE | 2019-04-22 00:05 | CT_ITS ---
HISTORY:VERTIGO X ONE WEEK VERTIGO X ONE WEEK TECHNIQUE: Multiple axial images were obtained of the brain without intravenous contrast. A radiation dose optimization technique was used for this scan. IV Contrast dosage and agent: None. COMPARISON: March 31, 2017 FINDINGS: # of images incl. paperwork: 229 INFARCT: None HEMORRHAGE: None PARENCHYMAL ATTENUATION:Normal for age MASS: None MIDLINE SHIFT: None BASAL CISTERNS: Patent VENTRICLES: Normal in size and configuration for age PARANASAL SINUSES:Clear MASTOID AIR CELLS: Clear ORBITS:No acute pathology CALVARIUM: No acute pathology OTHER TISSUES: No acute pathology ASPECTS Score for Acute Strokes: 10 CT/Brain/Head without Contrast IMPRESSION: No acute intracranial pathology. If symptoms persist consider mri for further evaluation if clinically indicated. Individualized dose optimization techniques were used for this CT. at 0029 Reported and signed by: Luna Gutierrez DO Electronically Signed: Luna Gutierrez DO at 0:28 EDT Tel , Service support ,
[2019-04-22 00:39] VITALS: BP 108/74; PULSE 76; RESP 16; O2SAT 96
[2019-04-22] MEDS: diazePAM 2 MG Tablet PO (00:58)
[2019-04-22 01:05] VITALS: BP 107/72; PULSE 75; RESP 16; O2SAT 97
== END 2019-04-22 01:08 | disposition home or self-care (01) ==
PROVIDERS: Emergency Provider Emergency Medicine; Family Provider Preventive Medicine Occupational Medicine; PCP Preventive Medicine Occupational Medicine
DX: R42 Dizziness and giddiness (principal); R07.89 Other chest pain; Z87.891 Personal history of nicotine dependence; F41.1 Generalized anxiety disorder; Z79.899 Other long term (current) drug therapy
CPT/HCPCS: 70450; 80048; 84484; 85027; 93005; 96374; 99285; J7030; A4216

== ENCOUNTER 2019-04-25 22:16 | Emergency (ER) | payer MEDICAID, SELFPAY ==
[2019-04-25 22:17] VITALS: BP 120/77; PULSE 107; RESP 16; TEMP 36.6; O2SAT 100; BMI 23.3
--- NOTE | 2019-04-25 22:50 | RAD_ITS ---
STUDY: X-RAY - LEFT FOOT CLINICAL: Female, 34 years old. Fall. Left-sided pain and swelling. TECHNIQUE: 3 view(s) of the foot. COMPARISON: None. FINDINGS: Normal talus, calcaneus, and tarsal bones. Normal visualized subtalar, talonavicular, calcaneocuboid, tarsal and tarsometatarsal articulations. Normal metatarsi. Normal metatarsophalangeal joint of the great toe. Normal tibial and fibular sesamoid bones. Normal interphalangeal joint of the great toe. Normal phalanges of the great toe. Normal second through fifth metatarsophalangeal joints. Normal interphalangeal joints and phalanges of the lesser toes. Moderate dorsal soft tissue swelling. RAD/Foot min 3 Views IMPRESSION: No fractures. No dislocations. Electronically Signed: Stoney Mcgraw MD at 23:03 EDT , Service support ,
[2019-04-25] MEDS: Naproxen 500 MG Tablet PO (22:51)
--- NOTE | 2019-04-25 23:46 | ED.DCSUM_ITS ---
- ER Visit Summary Date of Service: 04/25/19 Chief Complaint: Left foot pain History of Present Illness: The patient is a 34 F who presents with left foot pain. She was recently diagnosed with vertigo. While on vacation at [place] she fell down some steps twisted and injured her left foot. She was seen in the emergency department at that time and had a negative x-ray. She complains of ongoing pain and swelling despite tramadol. She has been icing and elevating. She is able to ambulate but it is painful. Physical Examination: Heart rate 107 vitals otherwise unremarkable Heart regular tachycardia Lungs are clear Patient has soft tissue swelling of the left foot diffuse nonfocal tenderness no focal bony tenderness no deformity neurovascularly intact with brisk capillary refill normal sensation and motor function is intact Test Results: X-ray shows no fracture or dislocation Emergency Department Course and Treatment: Patient was given naproxen for pain. X-ray is negative. An Reggie wrap was applied. She is advised to continue supportive care including rest ice and elevation. She was given a prescription for naproxen. She was advised that if symptoms continue she should follow-up as an outpatient and she was discharged home. Treatment Plan: [] Disposition: Discharge Impression: Left foot sprain This note was generated with [employer] dictation software. It may contain incorrect words, spelling, and punctuation that were not noted in review of the chart prior to signing ED Disposition - Plan for ED Patient: Referrals: Blaise Wetzel DO [Primary Care Provider] -
--- NOTE | 2019-04-25 23:47 | ED.DEP ---
ED Disposition - Plan for ED Patient: Instructions: Sprain Foot Referrals: Blaise Wetzel DO [Primary Care Provider] -
== END 2019-04-26 00:12 | disposition home or self-care (01) ==
PROVIDERS: Emergency Provider Emergency Medicine; Family Provider Preventive Medicine Occupational Medicine; PCP Preventive Medicine Occupational Medicine
DX: S93.602D Unspecified sprain of left foot, subsequent encounter (principal); F41.9 Anxiety disorder, unspecified; Z79.899 Other long term (current) drug therapy; X50.1XXA Overexertion from prolonged static or awkward postures, initial encounter; Y93.01 Activity, walking, marching and hiking; Y92.832 Beach as the place of occurrence of the external cause; Y99.8 Other external cause status
CPT/HCPCS: 73630; 99283

== ENCOUNTER 2019-06-17 05:00 | Emergency (ER) | payer MEDICAID, SELFPAY ==
[2019-06-17 05:01] VITALS: BP 104/68; PULSE 75; RESP 14; TEMP 36.4; O2SAT 100; BMI 21.7
--- NOTE | 2019-06-17 05:53 | ED.DCSUM_ITS ---
- ER Visit Summary Date of Service: 06/17/19 Chief Complaint: Dizziness History of Present Illness: The patient is a 34 F who presents with dizziness that began today. Patient states she feels off balance. Patient states this is worse with movement of her head. Patient admits to nausea but denies any vom iting. Patient does admit to some intermittent chest pain. Patient denies any fevers or chills. Patient admits to some blurred vision and recent rhinorrhea. Patient states she has a history of vertigo and states this feels somewhat similar to that. She denies any hearing changes or tinnitus. Patient denies any headaches. Physical Examination: Vital signs are stable. Patient is afebrile. Patient is in no acute distress. Pupils are equal, round, and reactive to light bilaterally. Extraocular muscles are intact. There is mild nystagmus with right lateral gaze. Oral mucosa is pink and moist. Neck is supple. Trachea is midline. There is no JVD noted. Heart was regular rate and rhythm. Lungs are clear and equal bilateral. Abdomen is soft. Bowel sounds are normal. There is no tenderness. There is no guarding noted. Skin is warm dry. Cranial nerves II through XII are intact. There are no focal motor or sensory deficits noted. The remaining physical exam is within normal limits. Test Results: CBC and basic metabolic profile were obtained and were within normal limits. Urinalysis was ordered and is pending. Emergency Department Course and Treatment: Patient was given a dose of meclizine here. Patient states she had no relief with this. Patient did ambulate to the bathroom back without difficulty however. Patient was ordered a second dose of meclizine. Patient wants to go home with a prescription for meclizine instead. Patient was given a prescription for meclizine. Patient was instructed to follow-up with her primary care physician in 3 to 5 days. She understood and was agreeable with the plan. All questions were answered. Disposition: Discharge home Impression: Vertigo This note was generated with [employer] dictation software. It may contain incorrect words, spelling, and punctuation that were not noted in review of the chart prior to signing ED Disposition - Plan for ED Patient: Disposition: Home or Assisted Living Diagnosis: Vertigo Instructions: VERTIGO, Unspecified Prescriptions: Meclizine HCl [Antivert] 25 mg PO TID PRN PRN #12 tab PRN Reason: Vertigo Prescription Printed Referrals: Blaise Wetzel DO [Primary Care Provider] - 3-5 Days
[2019-06-17] MEDS: Meclizine HCl 25 MG Tablet PO (06:00)
[2019-06-17] MEDS: 0.9% Normal Saline 1,000 ML 1000 ML IV (06:00)
[2019-06-17 06:02] VITALS: BP 91/59; BP 93/65; BP 98/68; PULSE 69; PULSE 83; PULSE 86
[2019-06-17 06:10] LABS: Absolute Lymphocyte Count 3.68 X10^3/uL (0.83-4.51); Absolute Neutrophil Count 3.6 X10^3/uL (2.0-7.7); Basophil# 0.06 X10^3/uL; Basophil% 0.7 % (0-1); Eosinophil# 0.19 X10^3/uL; Eosinophils% 2.3 % (0-5); Hemoglobin 12.2 g/dL (12.0-15.0); Lymphocyte # 3.68 X10^3/ul (4.0); Lymphocyte % 45.2 % (19-41); Mean Corp Hgb Conc 32.1 g/dL (32-36); Mean Corpuscular Hgb 29.7 pg (27.0-32.0); Mean Corpuscular Volume 92.5 fL (81-99); Mean Platelet Vol. 10.3 fl (6.2-12.0); Monocyte# 0.63 X10^3/uL; Monocyte% 7.7 % (0-10); NRBC Flagged by Analyzer 0 % (0-5); Neutrophil # 3.56 X10^3/uL (2.7-7.7); Neutrophil % 43.9 % (47-70); Platelet Count 233 K/mm3 (150-450); RBC Distribution Width CV 13.3 % (11.6-14.6); RBC Distribution Width SD 45.3 fl (35.1-43.9); Red Blood Count 4.11 M/mm3 (4.2-5.4); White Blood Count 8.1 K/mm3 (4.4-11.0)
[2019-06-17 06:25] LABS: Anion Gap 6 (5-15); BUN 14 mg/dL (7-18); BUN/Creat Ratio 22.3 RATIO (10-20); Calcium,Total 8.3 mg/dL (8.5-10.1); Chloride 109 mmol/L (98-107); Creatinine, Serum 0.63 mg/dL (0.55-1.02); EST Glomerular Filtration Rate 114 mL/min (>60); Est Glom Filt Rate - Afr Amer 138 mL/min (>60); Estimated Creatinine Clearance 120.05 ml/min; Glucose 102 mg/dL (74-106); Potassium 3.8 mmol/L (3.5-5.1); Sodium Level 143 mmol/L (136-145)
[2019-06-17 07:07] VITALS: BP 125/73; PULSE 68; RESP 15; O2SAT 99
[2019-06-17 07:21] LABS: Mucous, Urine 0 SEEN /hpf (<or=2+)
[2019-06-17 07:33] LABS: Internal QC Validated? YES +Cl - CLEAR BKGD; Pregnancy, Urine Negative Negative
[2019-06-17 07:41] LABS: Color, Urine Yellow (Yellow); Glucose, Dipstick Normal (Normal); Ketone-Dipstick Negative (Negative); Leukocyte Esterase-Dipstick 25 /ul (Negative); Nitrite-Dipstick Negative (Negative); Occult Blood-Urine 250 /ul (Negative); Protein-Dipstick 30 mg/dl (Negative); Urine Bilirubin Dipstick Negative (Negative); Urine Clarity Sl. Cloudy (Clear); Urine Urobilinogen Normal (Normal)
[2019-06-17 07:45] VITALS: BP 125/73; PULSE 68; RESP 18; O2SAT 99
[2019-06-17 07:47] LABS: Bacteria 1+ /hpf (None Seen); Red Blood Cells-Urine 25-50 SEEN /hpf (0-5); Squamous Epithelial Cells - UA 0-5 SEEN /hpf (5-10); White Blood Cells 0-5 SEEN /hpf (0-5)
== END 2019-06-17 07:46 | disposition home or self-care (01) ==
PROVIDERS: Emergency Provider Emergency Medicine; Family Provider Preventive Medicine Occupational Medicine; PCP Preventive Medicine Occupational Medicine
DX: R42 Dizziness and giddiness (principal)
CPT/HCPCS: 80048; 81001; 81025; 85025; 96360; 99285

== ENCOUNTER 2019-07-13 13:54 | Emergency (ER) | payer MEDICAID, SELFPAY ==
[2019-07-09 12:52] VITALS: BMI 21.7
[2019-07-13 13:54] VITALS: BP 113/69; PULSE 90; RESP 18; TEMP 36.1; BMI 22.5
--- NOTE | 2019-07-13 14:14 | ED.VIS.GEN ---
History of Present Illness Chief Complaint: Back Informant: Patient Onset: Days Current Severity: Mild Narrative: She presents with low lumbar back pain radiating to her right buttock she has a history of same, prior lumbar back surgery, indicates she is known to have a second disc that they have been managing conservatively with anti-inflammatory medicines rest and stretching and chiropractic therapy she has intermittent flareups of this condition, she indicates that the day when she was trying into her car she put her left foot into the car and began having pain in this area as above no direct trauma no numbness weakness paresthesias no bowel bladder complaints 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 she was seen by her chiropractor she had urgent care she is currently on anti-inflammatories and Flexeril Past Medical History - Allergies and Home Meds Allergies/Adverse Reactions: Allergies adhesive Allergy (Verified 07/09/19 12:48) Rash erythromycin base [Erythromycin Base] Allergy (Verified 07/09/19 12:48) Hives estradiol Allergy (Verified 07/09/19 12:48) Anaphylaxis Penicillins [PCN] Allergy (Verified 07/09/19 12:48) Anaphylaxis acetaminophen [From Tylenol] Adverse Reaction (Verified 07/09/19 12:48) Vomiting ferrous sulfate Adverse Reaction (Verified 07/09/19 12:48) Other Primary Care Physician: Blaise Wetzel DO [Primary Care Provider] - Past Medical History: - Surgical History: cholecystectomy Smoking Status: Former smoker Review of Systems ROS: - Includes as above General: Denies: Chills, Fever, Sweats Eyes: Denies: Visual changes - bilaterally, Diplopia ENT: Denies: Rhinorrhea, Sore throat Cardiovascular: Denies: Chest pain, Palpitations Respiratory: Denies: Dyspnea, Cough, Dyspnea on exertion Gastrointestinal: Denies: Abdominal pain, Nausea, Vomiting, Diarrhea, Melena, Hematochezia Genitourinary: Denies: Dysuria, Hematuria, Frequency Musculoskeletal: Reports: Back pain. Denies: Extremity Pain Skin: Denies: Rash, Wounds Neurological: Denies: Headache, Weakness, Numbness Physical Exam Vital Signs/Narrative: Vital Signs Temp Pulse Resp BP 07/13/19 13:54 96.9 F L 90 18 113/69 General: Well nourished, Well developed, No Acute Distress Head: Normocephalic, Atraumatic Eyes: Perrl, EOMI ENT: Moist mucous membranes, No rhinorrhea Neck: Supple, Nontender Cardiovascular: Regular rate, Regular rhythm, No murmurs Respiratory: No distress, CTA bilaterally, Chest nontender Abdomen: Soft, Nontender, Nondistended, Normal bowel sounds Back: Nontender, Normal Inspection Extremities: Nontender, No edema Skin: Normal color, No rash Neurological: Alert, Oriented x3, Cranial nerves II-XII grossly intact, Normal Strength, Normal Sensation Psychological: Normal affect, Normal Mood Diagnostic/Tx/Re-eval - Medical Decision Making Patient's physical exam she is a vague pain to the really the right paralumbar musculature slightly into her buttock does not radiate down her leg she is able to stand and walk she can heel raise toe raise knee bend she has no signs of cauda equina she has no bowel or bladder complaints, she assures me this is her usual flareup and sometimes she has to come to the hospital for an injection, at this time we discussed the therapy she will be given Toradol IM [place] x1 she will follow-up with all her outpatient providers for further management including her back surgeons and return for change in symptoms we offered her to be off work but she declined work release, she will continue the medication she was prescribed Home stable Final impression Acute recurrent lumbar back pain ED Disposition - Plan for ED Patient: Diagnosis: Lumbar back pain Instructions: BACK SPASM, No Trauma, BACK PAIN (Acute or Chronic) Referrals: Blaise Wetzel DO [Primary Care Provider] -
[2019-07-13] MEDS: Ketorolac 60 MG/2 ML Vial IM (14:40)
== END 2019-07-13 15:15 | disposition home or self-care (01) ==
LOC: ED 14:26
PROVIDERS: Emergency Provider Emergency Medicine; Family Provider Preventive Medicine Occupational Medicine; PCP Preventive Medicine Occupational Medicine
DX: M54.5 Low back pain (principal); Z87.891 Personal history of nicotine dependence
CPT/HCPCS: 96372; 99282

== ENCOUNTER 2019-09-24 15:25 | Emergency (ER) | payer MEDICAID, SELFPAY ==
[2019-09-24 15:26] VITALS: BP 116/70; PULSE 96; RESP 18; TEMP 36.8; O2SAT 100; BMI 22.9
--- NOTE | 2019-09-24 15:34 | MRI_ITS ---
STUDY: MRI LUMBAR SPINE WITHOUT CONTRAST REASON FOR EXAM: Female, 34 years old. Chronic LBP with surgery at L5-S1 in 2017, increase in pain x 3 weeks with bowel incontinenece today TECHNIQUE: Standardized fat and water weighted pulse sequences were obtained in the sagittal and axial planes. COMPARISON: None FINDINGS: No visualized marrow edema or fracture line. No aggressive process is seen. Normal lumbar lordosis. There is a dextroscoliosis of the lumbar spine. Normal conus medullaris that terminates at the T12-L1 level. L1-2: Moderate disc space narrowing is present without posterior disc herniation or bulging. Minor anterior endplate spurs are seen. Normal bilateral facet joints. Normal central canal and bilateral lateral recesses. Normal bilateral intervertebral neural foramina. L2-3: Mild to moderate disc space narrowing is present without posterior disc herniation or bulging. Minor anterior endplate degenerative changes are present. Normal bilateral facet joints. Normal central canal and bilateral lateral recesses. Normal bilateral intervertebral neural foramina. L3-4: Normal. L4-5: Normal. L5-S1: Left laminotomy defect at L5-S1 with mild fibrotic scarring seen in the surgical bed. A small amount of fibrotic scarring is also seen around the left descending nerve root which is also slightly enlarged. Moderate endplate degenerative changes are present. The disc space is moderately narrowed resulting in a broad-based is herniation as well as a small superimposed left paracentral disc extrusion that causes left lateral recess stenosis and compression of descending nerve root. Normal bilateral facet joints. Normal central canal and right lateral recess. Normal bilateral intervertebral neural foramina. Normal visualized sacral ala. Normal visualized paraspinous soft tissue structures. MRI/Spine Lumbar (Routine) IMPRESSION: 1. L5-S1 disc space is moderately narrowed resulting in a broad-based is herniation as well as a small superimposed left paracentral disc extrusion that causes left lateral recess stenosis and compression of descending nerve root. 2. Left laminotomy defect at L5-S1 with mild fibrotic scarring seen in the surgical bed. A small amount of fibrotic scarring is also seen around the left descending nerve root which is also slightly enlarged 3. Multilevel degenerative changes. Electronically Signed: Reddy Sam MD at 19:20 EST , Service support ,
--- NOTE | 2019-09-24 15:35 | ED.DCSUM_ITS ---
History of Present Illness Chief Complaint: Back Informant: Patient Onset: Days Context: Gradual Onset Timing: Continuous Current Severity: Moderate Maximum Severity: Severe Narrative: The patient presents to the emergency department with lower back pain. Patient had a L5-S1 lumbar discectomy by Dr. Gauri Gonzales in 2017. She states she is been doing well. States for the past 3 weeks, she is had some increasing pain. Today, she states that she had difficulty controlling her bowels. She states that she had pain that shot into her right hip. She denies any numbness in her groin. She denies any change in gait. She denies any difficulty urinating. She denies any fevers or chills. She denies any trauma. Prior similar symptoms: Yes Recent Illness/Hospitalization: No Past Medical History - Allergies and Home Meds Allergies/Adverse Reactions: Allergies adhesive Allergy (Verified 09/24/19 15:25) Rash erythromycin base [Erythromycin Base] Allergy (Verified 09/24/19 15:25) Hives estradiol Allergy (Verified 09/24/19 15:25) Anaphylaxis Penicillins [PCN] Allergy (Verified 09/24/19 15:25) Anaphylaxis acetaminophen [From Tylenol] Adverse Reaction (Verified 09/24/19 15:25) Vomiting ferrous sulfate Adverse Reaction (Verified 09/24/19 15:25) Other Primary Care Physician: Blaise Wetzel DO [Primary Care Provider] - Prior records reviewed: Yes Past Medical History: - - Prior back pain Surgical History: cholecystectomy Smoking Status: Former smoker Review of Systems General: Denies: Chills, Fever, Sweats Eyes: Denies: Visual changes - bilaterally, Diplopia ENT: Denies: Rhinorrhea, Sore throat Cardiovascular: Denies: Chest pain, Palpitations Respiratory: Denies: Dyspnea, Cough, Dyspnea on exertion Gastrointestinal: Denies: Abdominal pain, Nausea, Vomiting, Diarrhea, Melena, Hematochezia Genitourinary: Denies: Dysuria, Hematuria, Frequency Musculoskeletal: Reports: Back pain. Denies: Extremity Pain Skin: Denies: Rash, Wounds Neurological: Denies: Headache, Weakness, Numbness Physical Exam Vital Signs/Narrative: Vital Signs Temp Pulse Resp BP Pulse Ox 09/24/19 15:26 98.3 F 96 18 116/70 100 Inital Vital Signs reviewed: Yes General: Well nourished, Well developed, No Acute Distress Head: Normocephalic, Atraumatic Eyes: Perrl, EOMI ENT: Moist mucous membranes, No rhinorrhea Neck: Supple, Nontender Cardiovascular: Regular rate, Regular rhythm, No murmurs Respiratory: No distress, CTA bilaterally, Chest nontender Abdomen: Soft, Nontender, Nondistended, Normal bowel sounds Back: Normal Inspection. Negative for: CVA tenderness Extremities: Nontender, No edema Skin: Normal color, No rash Neurological: Alert, Oriented x3, Cranial nerves II-XII grossly intact, Normal Strength, Normal Sensation Psychological: Normal affect, Normal Mood Diagnostic/Tx/Re-eval Clinical Impression(s) from Imaging Studies Lumbar Spine MRI 09/24/19 15:34 IMPRESSION: 1. L5-S1 disc space is moderately narrowed resulting in a broad-based is herniation as well as a small superimposed left paracentral disc extrusion that causes left lateral recess stenosis and compression of descending nerve root. 2. Left laminotomy defect at L5-S1 with mild fibrotic scarring seen in the surgical bed. A small amount of fibrotic scarring is also seen around the left descending nerve root which is also slightly enlarged 3. Multilevel degenerative changes. Electronically Signed: Reddy Sam MD at 19:20 EST , Service support , Abnormal Lab Results 09/24/19 09/24/19 09/24/19 15:50 15:50 16:42 WBC 10.0 RBC 4.22 Hgb 12.6 Hct 39.3 MCV 93.1 MCH 29.9 MCHC 32.1 RDW Std Deviation 45.4 H RDW Coeff of David 13.3 Plt Count 239 MPV 10.4 Immature Gran % (Auto) 0.300 Neut % (Auto) 62.1 Lymph % (Auto) 28.3 [place] % (Auto) 7.0 Eos % (Auto) 1.8 Baso % (Auto) 0.5 Absolute Neuts (auto) 6.2 Absolute Lymphs (auto) 2.83 Nucleated RBC % 0 Sodium 139 Potassium 4.6 Chloride 110 H Carbon Dioxide 26.0 Anion Gap 3 L BUN 13 Creatinine 0.66 Estim Creat Clear Calc 114.59 Est GFR (MDRD) Af Amer 130 Est GFR (MDRD) Non-Af 108 BUN/Creatinine Ratio 19.8 Glucose 114 H Calcium 8.2 L Urine Color Urine Clarity Urine pH Ur Specific [place] Urine Protein Urine Glucose (UA) Urine Ketones Urine Occult Blood Urine Nitrite Urine Bilirubin Urine Urobilinogen Ur Leukocyte Esterase Urine RBC Urine WBC Ur Squamous Epith Cells Amorphous Sediment Urine Bacteria Urine Mucus Urine Test Negative 09/24/19 16:42 WBC RBC Hgb Hct MCV MCH MCHC RDW Std Deviation RDW Coeff of David Plt Count MPV Immature Gran % (Auto) Neut % (Auto) Lymph % (Auto) [place] % (Auto) Eos % (Auto) Baso % (Auto) Absolute Neuts (auto) Absolute Lymphs (auto) Nucleated RBC % Sodium Potassium Chloride Carbon Dioxide Anion Gap BUN Creatinine Estim Creat Clear Calc Est GFR (MDRD) Af Amer Est GFR (MDRD) Non-Af BUN/Creatinine Ratio Glucose Calcium Urine Color Yellow Urine Clarity Sl. Cloudy Urine pH 7.0 Ur Specific [place] 1.010 Urine Protein Negative Urine Glucose (UA) Normal Urine Ketones Negative Urine Occult Blood 25 H Urine Nitrite Negative Urine Bilirubin Negative Urine Urobilinogen Normal Ur Leukocyte Esterase 100 H Urine RBC 0-5 SEEN Urine WBC 5-10 SEEN Ur Squamous Epith Cells 5-10 SEEN Amorphous Sediment 1+ PHOS Urine Bacteria 0 SEEN Urine Mucus 0 SEEN Urine Test - Medical Decision Making Patient presents to the emergency department with right-sided low back pain and does describe loss of bowel continence. She denies any perianal numbness. She has no weakness. She ambulates with a steady gait. Her reflexes and pulses are normal. However, given her history of prior back pain and red flag, I did want to rule out cauda equina. Patient underwent imaging which demonstrates impingement in the lateral recess of the right L5-S1 area. There was no evidence of cauda equina or central cause. At this point, I do feel that she is safe for outpatient follow-up. She will be given a short course of analgesics and will follow up with orthopedic surgeon. Impression 1. Acute back pain with radiculopathy ED Disposition - Plan for ED Patient: Instructions: BACK PAIN w/ SCIATICA Prescriptions: cycloBENZAPRine HCl [Flexeril] 10 mg PO TID PRN #20 tab PRN Reason: Muscle Spasm Prescription Printed Oxycodone HCl/Acetaminophen [Percocet 5/325] 1 tab PO Q6H PRN PRN 3 Days #12 tab PRN Reason: Pain Prescription Printed Referrals: Blaise Wetzel DO [Primary Care Provider] -
[2019-09-24] MEDS: 0.9% Normal Saline 1,000 ML 1000 ML IV (15:56)
[2019-09-24] MEDS: Ondansetron 4 MG/2 ML Vial IV (15:56)
[2019-09-24] MEDS: Morphine 4 MG/ML Syringe IV (15:58)
[2019-09-24 16:11] LABS: Absolute Lymphocyte Count 2.83 X10^3/uL (0.83-4.51); Absolute Neutrophil Count 6.2 X10^3/uL (2.0-7.7); Basophil# 0.05 X10^3/uL; Basophil% 0.5 % (0-1); Eosinophil# 0.18 X10^3/uL; Eosinophils% 1.8 % (0-5); Hematocrit 39.3 % (37-47); Hemoglobin 12.6 g/dL (12.0-15.0); Lymphocyte # 2.83 X10^3/ul (4.0); Lymphocyte % 28.3 % (19-41); Mean Corp Hgb Conc 32.1 g/dL (32-36); Mean Corpuscular Hgb 29.9 pg (27.0-32.0); Mean Corpuscular Volume 93.1 fL (81-99); Mean Platelet Vol. 10.4 fl (6.2-12.0); NRBC Flagged by Analyzer 0 % (0-5); Neutrophil # 6.21 X10^3/uL (2.7-7.7); Neutrophil % 62.1 % (47-70); Platelet Count 239 K/mm3 (150-450); RBC Distribution Width CV 13.3 % (11.6-14.6); RBC Distribution Width SD 45.4 fl (35.1-43.9); Red Blood Count 4.22 M/mm3 (4.2-5.4)
[2019-09-24 16:17] LABS: Anion Gap 3 (5-15); BUN 13 mg/dL (7-18); BUN/Creat Ratio 19.8 RATIO (10-20); Calcium,Total 8.2 mg/dL (8.5-10.1); Chloride 110 mmol/L (98-107); Creatinine, Serum 0.66 mg/dL (0.55-1.02); EST Glomerular Filtration Rate 108 mL/min (>60); Est Glom Filt Rate - Afr Amer 130 mL/min (>60); Estimated Creatinine Clearance 114.59 ml/min; Glucose 114 mg/dL (74-106); Potassium 4.6 mmol/L (3.5-5.1); Sodium Level 139 mmol/L (136-145)
[2019-09-24 16:46] LABS: Bacteria 0 SEEN /hpf (None Seen); Mucous, Urine 0 SEEN /hpf (<or=2+)
[2019-09-24 17:15] LABS: Internal QC Validated? YES +Cl - CLEAR BKGD; Pregnancy, Urine Negative Negative
[2019-09-24 17:19] LABS: Color, Urine Yellow (Yellow); Glucose, Dipstick Normal (Normal); Ketone-Dipstick Negative (Negative); Leukocyte Esterase-Dipstick 100 /ul (Negative); Nitrite-Dipstick Negative (Negative); Occult Blood-Urine 25 /ul (Negative); Protein-Dipstick Negative (Negative); Urine Bilirubin Dipstick Negative (Negative); Urine Clarity Sl. Cloudy (Clear); Urine Urobilinogen Normal (Normal)
[2019-09-24 17:22] LABS: Red Blood Cells-Urine 0-5 SEEN /hpf (0-5); Squamous Epithelial Cells - UA 5-10 SEEN /hpf (5-10); White Blood Cells 5-10 SEEN /hpf (0-5)
[2019-09-24 17:23] LABS: Amorphous Sediment 1+ PHOS
[2019-09-24] MEDS: LORazepam 2 MG/ML Syringe 1 MG IV (17:42)
[2019-09-24 17:43] VITALS: BP 107/62; PULSE 72; RESP 16; O2SAT 99
[2019-09-24 19:25] VITALS: BP 104/62; PULSE 78; RESP 16; O2SAT 100
[2019-09-24 19:42] VITALS: BP 104/62; PULSE 78; RESP 16; O2SAT 100
== END 2019-09-24 19:49 | disposition home or self-care (01) ==
LOC: ED 15:37
PROVIDERS: Emergency Provider Emergency Medicine; Family Provider Preventive Medicine Occupational Medicine; PCP Preventive Medicine Occupational Medicine
DX: M54.16 Radiculopathy, lumbar region (principal); Z87.891 Personal history of nicotine dependence
CPT/HCPCS: 72148; 80048; 81001; 81025; 85025; 96361; 96374; 96375; 99284; J7030; A4216; J2405

== ENCOUNTER 2020-01-16 11:46 | Emergency (ER) | payer OTHER, MEDICAID, SELFPAY ==
[2019-11-28 15:23] VITALS: BMI 22.9
[2020-01-16 11:47] VITALS: BP 109/69; PULSE 92; RESP 18; TEMP 36.1; O2SAT 100; BMI 21.6
--- NOTE | 2020-01-16 12:02 | ED.VIS.GEN ---
History of Present Illness Chief Complaint: Back Informant: Patient Onset: Days Context: Gradual Onset Current Severity: Moderate Maximum Severity: Moderate Narrative: Patient presents secondary to lumbar back pain. She is a history of chronic back pain and has had a previous L5-S1 lumbar discectomy. Patient states she is currently moving and has been picking up heavy objects. She has had increased pain to the mid lumbar spine. Pain does not radiate down her legs. She was seen by her chiropractor couple days ago and had some improvement after her back was adjusted. She is been taking ibuprofen. She has an allergy listed to Tylenol. - Past Medical History (1) Arthritis Status: Chronic (2) Asthma Status: Chronic (3) Migraines Status: Chronic (4) MISBAH (generalized anxiety disorder) Status: Chronic Past Medical History - Allergies and Home Meds Allergies/Adverse Reactions: Allergies adhesive Allergy (Verified 01/16/20 11:49) Rash erythromycin base [Erythromycin Base] Allergy (Verified 01/16/20 11:49) Hives estradiol Allergy (Verified 01/16/20 11:49) Anaphylaxis Penicillins [PCN] Allergy (Verified 01/16/20 11:49) Anaphylaxis acetaminophen [From Tylenol] Adverse Reaction (Verified 01/16/20 11:49) Vomiting ferrous sulfate Adverse Reaction (Verified 01/16/20 11:49) Other Primary Care Physician: Blaise Wetzel DO [Primary Care Provider] - Prior records reviewed: Yes Surgical History: cholecystectomy Smoking Status: Current some day smoker Review of Systems General: Denies: Chills, Fever Eyes: Denies: Visual changes - bilaterally ENT: Denies: Bilateral ear pain Cardiovascular: Denies: Chest pain Respiratory: Denies: Dyspnea, Cough Gastrointestinal: Denies: Abdominal pain, Nausea, Vomiting, Diarrhea Musculoskeletal: Reports: Back pain. Denies: Extremity Pain Skin: Denies: Rash Neurological: Denies: Headache, Weakness, Parasthesia Hematologic: Denies: Easy bruising, Easy bleeding Allergy: Denies: Uticaria Physical Exam Vital Signs/Narrative: Vital Signs Temp Pulse Resp BP Pulse Ox 01/16/20 11:47 96.9 F L 92 18 109/69 100 Inital Vital Signs reviewed: Yes General: Well nourished, Well developed Head: Normocephalic ENT: Moist mucous membranes Neck: Supple Cardiovascular: Regular rate, Regular rhythm Respiratory: No distress, CTA bilaterally Abdomen: Soft, Nontender Back: - - Patient has reproducible tenderness in the mid lumbar spine, midline as well as paraspinals. She is an old surgical scar over the lower lumbar spine. No overlying skin changes noted. Skin: Normal color Neurological: Alert, Oriented x3, Normal Strength, Normal Sensation Psychological: Normal affect Diagnostic/Tx/Re-eval - Medical Decision Making Patient does have reproducible pain and pain with movement. Oars report is checked. She is only had one prescription for narcotics this year. She has been taking excessive ibuprofen and has a Tylenol allergy. She will be written a few oxycodone as well as Flexeril to help with spasm. ED Disposition - Plan for ED Patient: Disposition: Home or Assisted Living Diagnosis: Back pain Instructions: ED Back Pain Acute or Chronic Prescriptions: cycloBENZAPRine HCl [Flexeril] 10 mg PO TID PRN #20 tab PRN Reason: Muscle Spasm Transmission Status: Pending to [facility] Oxycodone [Oxyir] 5 mg PO Q6H PRN PRN 3 Days #10 tablet PRN Reason: Pain Score 6-10/10 Transmission Status: Sent to [facility] Referrals: Blaise Wetzel DO [Primary Care Provider] - 1 Week if not improving
== END 2020-01-16 12:16 | disposition home or self-care (01) ==
LOC: ED 12:14
PROVIDERS: Emergency Provider Emergency Medicine; PCP Preventive Medicine Occupational Medicine
DX: M54.5 Low back pain (principal); M19.90 Unspecified osteoarthritis, unspecified site; J45.909 Unspecified asthma, uncomplicated; F41.1 Generalized anxiety disorder; Z79.899 Other long term (current) drug therapy; F17.200 Nicotine dependence, unspecified, uncomplicated
CPT/HCPCS: 99282

== ENCOUNTER 2020-01-21 19:00 | Emergency (ER) | payer OTHER, MEDICAID, SELFPAY ==
[2020-01-21 19:02] VITALS: BP 101/62; PULSE 96; RESP 14; TEMP 36.6; O2SAT 100; BMI 23.3
--- NOTE | 2020-01-21 19:18 | ED.VISSUMM ---
- ER Visit Summary Date of Service: 01/21/20 Chief Complaint: Back pain History of Present Illness: The patient is a 34 F who presents with back pain that began today. Patient states she was lifting something by herself and she felt pain in her low back. Patient had similar episode 5 days ago and was seen here. Patient states today her pain is in the lower lumbar area. Patient states the pain radiates into her right hip but denies any radiation down her lower extremities. Patient denies any bowel or bladder changes. Patient denies any saddle anesthesia. Patient does have a history of lumbar discectomy. Physical Examination: Vital signs are stable. Patient is afebrile. Patient is in no acute distress. Musculoskeletal exam reveals tenderness and spasm of the lumbar paraspinal muscles, worse on the right. There is no midline tenderness. There is no edema or ecchymosis. There is no bony crepitance or step-off. Range of motion was limited in all motions of the lumbar spine secondary to pain. Strength is 5/5 bilateral lower extremities. Sensation was intact light touch in the lower extremities. Deep tendon reflexes are 2+/4 bilaterally in the patella and Achilles reflexes. Emergency Department Course and Treatment: Patient was given injections of Toradol and Norflex here. Patient states she still has some Flexeril at home. Patient was given a scription for a short course of oxycodone. Patient was instructed to follow-up with her primary care physician in 3 to 5 days for further evaluation. Patient understood and was agreeable with the plan. All questions were answered. Disposition: Discharge home Impression: Lumbosacral strain This note was generated with [employer] dictation software. It may contain incorrect words, spelling, and punctuation that were not noted in review of the chart prior to signing ED Disposition - Plan for ED Patient: Disposition: Home or Assisted Living Diagnosis: Lumbosacral strain Instructions: ED LUMBAR SPRAIN/STRAIN Prescriptions: Oxycodone [Oxyir] 5 mg PO Q6H PRN PRN 3 Days #12 tab PRN Reason: Pain Score 6-10/10 Prescription Printed Referrals: Blaise Wetzel DO [Primary Care Provider] - 3-5 Days
[2020-01-21] MEDS: Orphenadrine 60 MG/2 ML Ampul IM (19:29)
[2020-01-21] MEDS: Ketorolac 60 MG/2 ML Vial IM (19:29)
[2020-01-21 19:49] VITALS: BP 98/56; PULSE 90; RESP 17; O2SAT 98
== END 2020-01-21 19:50 | disposition home or self-care (01) ==
PROVIDERS: Emergency Provider Emergency Medicine; PCP Preventive Medicine Occupational Medicine
DX: S39.012A Strain of muscle, fascia and tendon of lower back, initial encounter (principal); Z72.0 Tobacco use; X50.0XXA Overexertion from strenuous movement or load, initial encounter; Y93.89 Activity, other specified; Y92.009 Unspecified place in unspecified non-institutional (private) residence as the place of occurrence of the external cause; Y99.8 Other external cause status
CPT/HCPCS: 96372; 99282

== ENCOUNTER 2020-02-14 15:06 | Emergency (ER) | payer OTHER, MEDICAID, SELFPAY ==
[2020-02-14 15:08] VITALS: BP 126/72; PULSE 94; RESP 16; TEMP 36.3; O2SAT 98; BMI 21.5
--- NOTE | 2020-02-14 15:33 | ED.VISSUMM ---
- ER Visit Summary Date of Service: 02/14/20 Chief Complaint: Upper back pain History of Present Illness: The patient is a [address] of irritable bowel, anxiety, appendectomy, cholecystectomy and prior lumbar spine L5-S1 disc surgery. Patient states she has had upper back pain for 2 months. Denies any falls or trauma. No fever. No shortness of breath or chest pain. Saw her chiropractor the other day. States that that helps for short period time and the pain returns. Denies any weakness to her arms or legs. No bowel or bladder incontinence or retention. No history of cancer. Physical Examination: Well-appearing young female. No acute distress. Vital signs stable afebrile. H EENT exam unremarkable. Neck nontender no lymphadenopathy. Lungs clear to auscultation bilaterally. Heart regular rate and rhythm no murmur. Chest were nontender. Abdomen soft nontender. Normal bowel sounds no peritoneal signs. Patient moving all 4 extremities. Neurovascular intact. 5/5 quality compliance coordinator strength. Dorsi plantarflexion intact. Normal range of motion. No edema. Nontender. Neurologically she is awake alert with no focal motor or sensory deficits. Back she has reproducible muscle skeletal upper back pain. Spine itself is not specifically reproducibly tender. There is no redness or warmth. There is no bruising or signs of trauma. Test Results: None Emergency Department Course and Treatment: Explained to the patient this is an acute on chronic back pain. This is not something we typically treat with narcotics. She may need an MRI as an outpatient but she does not really meet criteria for an emergent MRI at this time. She has no numbness or weakness. Treatment Plan: Anti-inflammatories for pain. Follow-up with her primary care physician. Disposition: Discharge Impression: Acute on chronic upper back pain musculoskeletal etiology History of degenerative disc disease with prior lumbar spine surgery This note was generated with [employer] dictation software. It may contain incorrect words, spelling, and punctuation that were not noted in review of the chart prior to signing ED Disposition - Plan for ED Patient: Referrals: Blaise Wetzel DO [Primary Care Provider] -
--- NOTE | 2020-02-14 15:38 | ED.DEP ---
ED Disposition - Plan for ED Patient: Disposition: Home or Assisted Living Instructions: ED Back Pain Acute or Chronic Referrals: Blaise Wetzel DO [Primary Care Provider] - As soon as possible Additional Instructions: Motrin for pain. Follow-up with primary care physician you may need an outpatient MRI.
[2020-02-14 16:00] VITALS: RESP 16
--- OUTSIDE RECORDS SUMMARY | 2020-07-21 07:50 | XMS RPT_ITS | CCD ---
:1985 External Reference #:[id number] Author Organization [facility] Care Team Providers Name Role Phone MILTON PATEL Unavailable Unavailable MILTON PATEL Unavailable Unavailable KEE CORTEZ Admitting Unavailable KEE CORTEZ Attending Unavailable KEE CORTEZ Primary Care Unavailable EMPLOYEE Admitting Unavailable EMPLOYEE Attending Unavailable EMPLOYEE Primary Care Unavailable Alan Crowe Primary Care Provider Jordon Wetzel Primary Care Provider Allergies Reported Allergen Reaction(s) Severity Date of Onset Location Acetaminophen Vomiting 04-15-2008 - [facility] Translations: [ [facility] ACETAMINOPHEN] Repository HYDROmorphone Other: See Comments 04-[facility] Transl[facility]: [ [facility] HYDROMORPHONE (BULK)] Reposi tory Penicillins Hives 04-15-2008 - [facility] Translations: [ [facility] PENICILLINS] Repository Medications Medication Name Sig Date Prescriber Location Baclofen BACLOFEN ORAL Take by [facility] Provider [facility] mouth. 0 Active Provider ([id number]) Comment: Take by mouth. clonazePAM clonazePAM (KLONOPIN) 1 [facility] Provider [facility] (99434) mg tablet Take 1 mg by Provider mouth twice daily as needed. 0 Active Comment: Take 1 mg by mouth twice keily ly as needed. Problems Active Problems Category Problem Name Status Date Location Other bone disease and Somatic dysfunction Active 02-25-2013 - [facility] musculoskeletal of thoracic region (98242 ) deformities Other bone disease and Somatic dysfunction Active 02-25-2013 - [facility] musculoskeletal of lumbar region (41686) deformities Other female genital Heavy episode of Active [facility] disorders vaginal bleeding (20946) Past or Other Problems Category Problem Name Status Date Location Spondylosis; intervertebral Backache Completed 02-25-2013 - [facility] disc disorders; other back ( 70758) problems Results Result Name Value Range Unit Interpretation Flag Date Location nicotine/cotinine, serum [ccl] on 2018-11-13 NICOTINE/COTININE, SERUM [CCL] Normal 11-13-2018 [facility] ( 77810) Comment: Result Comment: _NICOTINE/CO TININE, SERUM [CCL]_ NICOTINE/COTININE, SERUM [CC L] Reported: 11/13/2018 12:06 S tatus=F TEST RESULT FLAG RANGE UNITS Nicotine <2 <2 ng/mL 1208.rfl.COMPLETE.ATLR Cotinine <2 <2 ng/mL 1208.rfl.COMPLETE.ATLR Nornicotine Absent AB .1208.rfl.COMPLETE.ATLR (NOTE) WHILE USING A TOBACCO PRODUC T: Peak Nicotine concentration: 30 ng/mL to 50 ng/mL Peak Cotinine concentration: 200 ng/mL to 800 ng/mL (Higher Cotinine values may be seen in subjects with high cytochrome P450 2D 6 activity.) TOBACCO USER AFTER TWO WKS O F COMPLETE ABSTINENCE: Nicotine concentration: <2.0 ng/mL Cotinine concentration: <2.0 ng/mL NONTOBACCO USER WITH PASSIVE EXPOSURE: Nicotine concentration: <2.0 ng/mL Cotinine concentration: <8.0 ng/mL NONTOBACCO USER WITH NO PASS JOSE MANUEL EXPOSURE: Nicotine concentration: <2.0 ng/mL Cotinine concentration: <2.0 ng/mL The presence of nornicotine indicates tobacco or nicotine exposure while its absence does not r ule out the exposure. To discriminate if a patient on nicotine replac ement therapy is actively using a tobacco product, the presence of vanesa basine in URINE indicates recent tobacco use. Anabasine is a tobacco alkaloid not present in nicotine replacement products. This test was developed and its performance characteristics determined by [facility]. It has not been cleared or approved by the FDA. [facility] Juli acuna is authorized under CLIA to perform high-complexity test ing. This test is used for clinical purposes. It should not be r egarded as investigational or for research. [facility] Laboratorie s [address] [place] [address] Mayra Forbes M.D. [id number] Performed By: #### [id number] ## ## [facility],[address] [place], [place] [id number] nicotine/cotinine o n 2018-11-13 Nicotine <2 <2 Normal 11-13-2018 [facility] Reference Lab ([id number]) Comment: Performed By: #### MEASLG, M UMPSG, RUBIGG #### [facility] Laborator s Routine Lab [address] [place] [phone] #### NICOT #### [facility] s Chemistry [address] [place] [phone] Nornicotine Absent Absent Normal 11-13-2018 [facility] ([id number]) Comment: Performed By: #### MEASLG, M UMPSG, RUBIGG #### [facility] Laboratorie s Routine Lab [address] [place] [phone] #### NICOT #### [facility] Labor[facility] s Chemistry [address] [place] [phone] Trimethoprim+Sulfamethoxazole susc <2 <2 Addie l 11-13-2018 [facility] Reference Lab ([id number]) Comment: Performed By: #### MEASLG, M UMPSG, RUBIGG #### [facility] Laboratorie s Routine Lab [address] [place] [address] #### NICOT #### [facility] Laborator[facility] s Chemistry [address] [place] [id number] rubella igg antibody on 2018-11-09 Rubella IgG Ab 3.96 Index Value Normal 11-09-2018 [facility] Reference Lab ([id number]) Comment: Performed By: #### CAROLG, M UMPSG, RUBIGG #### [facility] Laboratorie s Routine Lab [address] [place] [address] #### NICOT #### [facility] Laborator[facility] s Chemistry [address] [place] [address] Rubella IgG Ab, Qual Positive Negative Abnormal 9 [facility] Reference Lab ([id number]) Comment: Performed By: #### CAROLG M UMPSG, RUBIGG #### [facility] Laboratorie s Routine Lab [address] [place] [phone] #### NICOT #### [facility] Laborator[facility] s Chemistry [address] [place] [address] rubella igg antibody [ccl] on 2018-11-09 RUBELLA IgG ANTIBODY [CCL] Normal [facility] ([id number]) Comment: Result Comment: _RUBELLA IGG ANTIBODY [CCL]_ RUBELLA IgG ANTIBODY [CCL] Reported: 11/09/2018 11:55 S tatus=F TEST RESULT FLAG RANGE UNITS Rubella IgG Ab, Qual Positiv e A NEGAT 11/09/18.8.rfl.COMPLETE.ATLR Sample is considered positiv e for IgG antibodies to rubella virus. A positive result indicates previous exposure to Rubella virus or vaccination. Rubella IgG Ab 3.96 Index .1157.rfl.COMPLETE.ATLR Value Index values are interpreted as follows: Negative specimens <0.90 Equivocol specimens 0.90 to 0.99 Positive specimens >0.99 The magnitude of the measure d result is not indicative of the amount of antibody present. [facility] Laboratorie s [facility] [place] [address] Mayra Forbes M.D. [id number] Performed By: #### [id number] ## ## Ignacio [facility],[address] [place], [place] [address] mumps igg ab on 201 06-10-01 Mumps IgG Ab 113.0 AU/mL Normal 11-09-2018 [facility] Reference Lab ([id number]) Comment: Performed By: #### Marlon LOPEZ RUBIGG #### [facility] Laboratorie s Routine Lab [address] [place] [phone] #### NICOT #### [facility] Laborator[facility] s Chemistry [address] [place] [phone] Mumps IgG, Qual Positive Negative Abnormal 11-09-2018 [facility] Reference Lab ([id number] ) Comment: Performed By: #### Marlon LOPEZ RUBIGG #### [facility] Laboratorie s Routine Lab [address] [place] [phone] #### NICOT #### [facility] Labor[facility] s Chemistry [address] [place] [phone] mumps igg ab [ccl] on 2018-11-09 MUMPS IGG AB [CCL] Normal 11-09-2018 [facility] ([id number]) Comment: Result Comment: _MUMPS IGG A B [CCL]_ MUMPS IGG AB [CCL] Reported: 11/09/2018 11:55 S tatus=F TEST RESULT FLAG RANGE UNITS Mumps IgG, Qual Positive A N EGAT 11/09/18.1158.rfl.COMPLETE.ATLR Presence of detectable mumps virus IgG antibodies. A positive result generally indicates past exposure to m umps virus or previous vaccination. Mumps IgG Ab 113.0 AU/mL 10/27.1158.rfl.COMPLETE.ATLR AU/mL Values interpreted as follows: Negative Specimens <9.0 Equivocal specimens 9.0 to 1 0.9 Positive specimens >10.9 The magnitude of the measure d result, above the cutoff, is not indicative of the amount of antibody prese nt. [facility] Laboratorie s [address] [place] [address] Mayra Forbes M.D. [id number] Performed By: #### [id number] ## ## [facility],[address] [place], [place] [phone] measles igg antibody on 2018-11-09 Measles IgG Ab, Qual Negative Abnormal 9 [facility] Reference Lab ([id number]) Comment: Result Comment: Positive Pre sence of detectable measles virus IgG antibodies. A positive result generally indicates exposure to measles virus or previous vaccination. Performed By: #### MEASLG, M UMPSG, RUBIGG #### [facility] Laboratorie s Routine Lab [address] [place], [place] [address] #### NICOT #### [facility] Labor[facility] s Chemistry [address] [place], [place] [phone] Measles IgG Antibody 33.9 AU/mL Normal 9 [facility] Reference Lab ([id number]) Comment: Performed By: #### MEASLG, M UMPSG, RUBIGG #### [facility] Laboratorie s Routine Lab [address] [place], [place] [address] #### NICOT #### [facility] Labor[facility] s Chemistry [address] [place], [place] [phone] measles igg antibody [ccl] on 2018-11-09 MEASLES IGG ANTIBODY [CCL] Normal [facility] (98485) Comment: Result Comment: _MEASLES IGG ANTIBODY [CCL]_ MEASLES IGG ANTIBODY [CCL] Reported: 11/09/2018 11:55 S tatus=F TEST RESULT FLAG RANGE UNITS Measles IgG Ab, Qual Positiv e A NEGAT 11/09/18.1158.rfl.COMPLETE.ATLR Presence of detectable measl es virus IgG antibodies. A positive result generally indicates exposure to measles virus or previous vaccination. Measles IgG Antibody 33.9 AU /mL 11/09/18.1158.rfl.COMPLETE.ATLR AU/mL Value interpreted as f ollows: Negative specimens <25.0 Equivocal specimens 25.0 to 29.9 Positive specimens >29.9 The magnitude of the measure d result, above the cutoff, is not indicative of the amount of antibody prese nt. [facility] Laboratorie s [facility] [place] [phone] Mayra Forbes M.D. [id number] Performed By: #### [id number] ## ## [facility],[address] [place] [address] hepb surfaceab,quant on 2018-11-09 HepB SurfaceAb,Quant >1000.00 <8.00 High 9 [facility] Reference Lab ([id number]) Comment: Performed By: #### JOHN M UMPSG, RUBCHASEG #### [facility] Laboratorie s Routine Lab [address] [place] [address] #### NICOT #### [facility] Laborator[facility] s Chemistry [address] [place] [address] hep b surface ab, quant [ccl] on 2018-11-09 HEP B SURFACE AB, QUANT [CCL] Normal 11-09-2018 [facility] (53579) Comment: Result Comment: _HEP B SURFA CE AB, QUANT [CCL]_ HEP B SURFACE AB, QUANT [CCL ] Reported: 11/09/2018 11:55 S tatus=F TEST RESULT FLAG RANGE UNITS HepB SurfaceAb,Quant >1000.0 0 H <8.00 mIU/mL 11/09/18.1158.rfl.COMPLETE.ATLR [facility] Laboratorie s [address] [place] [address] Mayra Forbes M.D. [id number] Performed By: #### [id number] ## ## [facility] [place] [facility],[address] [place] [address] lipid profile on 27-10-30 Cholesterol in HDL mass conc 70 40 - 60 mg/dl High 0 11-08-2018 [facility] ( 26086) Comment: Performed By: #### [id number] ## ## [facility] [place],[address] [place] [address]696 Cholesterol in LDL mass 98 0 - 129 mg/dl Normal 2018 [facility] ( 93269) Comment: Performed By: #### [id number] ## ## [facility],[address] [place] [address] Cholesterol mass conc 185 0 - 200 mg/dl Normal 11-08-19 [facility] ( 30614) Comment: Performed By: #### [id number] ## ## [facility],[address] [place] [address] 16442 Cholesterol.total/Cholesterol in HDL 2.6 0.0 - 5.0 Nor mal 11-08-2018 [facility] (36999) Comment: Performed By: #### [id number] ## ## [facility] [place],[address] [place] [address] 12305 Protein mass conc Normal 11-08-2018 [facility] (12396) Comment: Result Comment: LIPID PROFIL E Performed By: #### [id number] ## ## [facility] [place] [facility],[address],[place] [address] Triglyceride mass conc 84 0 - 150 mg/dl Normal 019 [facility] ( 11860) Comment: Performed By: #### [id number] ## ## [facility] [place],[address] [facility] [address] glucose on Glucose mass conc 95 74 - 106 mg/dl Normal 11-08-2018 [facility] (57823) Comment: Performed By: #### [id number] ## ## [facility] [place],[address] [facility] [address] drug screen urine medic on 2018-11-08 Amphetamines Ql (U) NEG Normal 11-08-2018 [facility] (83551) Comment: Performed By: #### [id number] ## ## [facility] [place],[address] [facility] [address] B-DIAZEPINES NEG Normal 11-08-2018 [facility] (84019) Comment: Performed By: #### [id number] ## ## [facility] [place],[address] [facility] [address]284 BARBITURATES NEG Normal 11-08-2018 [facility] (92713) Comment: Performed By: #### [id number] ## ## [facility] [place],[address] [facility] [address] Cocaine Ql (U) NEG Normal 11-08-2018 [facility] (26892) Comment: Performed By: #### [id number] ## ## [facility] [place],[address] [facility] [address] DRUG SCREEN URINE MEDIC Normal 2018 [facility] (98933) Comment: Result Comment: DRUG SCREEN - URINE Performed By: #### [id number] ## ## [facility] [place] [facility],[address] [facility] [place] [address] Methadone Ql (U) NEG Normal 11-08-2018 [facility] (26594) Comment: Performed By: #### [id number] ## ## [facility] [place] [facility],[address] [facility] [address] Opiates Ql (U) NEG Normal 11-08-2018 [facility] (94428) Comment: Performed By: #### [id number] ## ## [facility] [place] [facility],[address] [facility] [address] PCP NEG Normal 11-08-2018 [facility] (26921) Comment: Performed By: #### [id number] ## ## [facility] [place] [facility],[address] [facility] [address] TCA POS Normal 11-08-2018 [facility] (00317) Comment: Performed By: #### [id number] ## ## [facility],[address] [facility] [address] THC NEG Normal 11-08-2018 [facility] (06311) Comment: Result Comment: PATIENTS REC EIVING PROTON PUMP INHIBITORS MAY DEMONSTRATE FALSE POSITIVE THC/CANNABINOID RESULTS. AN ALTERNATIVE CONFIRMATORY METHOD SHOULD BE CONSIDERED TO VERIFY POSITIVE RESULTS. Performed By: #### [id number] ## ## [facility],[address] [facility] [address] progress on 2018-09 Protein mass HNO ID: [id number]: Falguni hernandez 09-10-2018 [facility] Nejazmine PatelService: [place] (none)Author Type: ( [id number]) PhysicianType: Progress NotesFiled: 09/10/2018 4:34 PMNote Text:Carolina Monteiro is a 33 year old who presents for her annualgynecologic exam without complaints. Menses still a little irregularsince going off depo. Planning trip to [place] in March with kids ages6/9.Menses: cycles every 21-35 days and 5 days of flow.Contraception: noneHPV vaccine: NoLast Pap: ?? 4 yrs agoHistory of abnormal pap: NoLast mammogram: 2017- benign lumpectomySexually active: YesHistory of STDS: NonePatient concerns for STD exposure: No.Pain with intercourse: NoPostcoital bleeding: NoExercise: activeDiet: balancedObstetric History T2 L2 SAB1 TAB0 Ectopic0 Multiple0 Live [id number] MEDICAL HISTORYDiagnosis Date- Anxiety- DDD (degenerative disc disease), lumbarPAST SURGICAL HISTORYProcedure Laterality Date- APPENDECTOMY- CHOLECYSTECTOMY 2010- ERCP 2010 stent placed- PAST SURGICAL HISTORY OF 1992 surgery on nasal septum- PAST SURGICAL HISTORY OF 1996 lumpectomy on left breast- PAST SURGICAL HISTORY OF 2006 bulging disc repair- REMOVAL ADENOIDS,PRIMARY,<12 Y/O- REMOVAL OF OVARIAN CYST(S)FAMILY HISTORYProblem Relation Age of Onset- None Mother- Hypertension Father- other (hypercholestermia) Father- Cancer Maternal Grandmother- Heart Maternal GrandfatherSOCIAL HISTORYSocial HistorySubstance Use Topics- Smoking status: Former Smoker- Smokeless tobacco: Never Used- Alcohol use NoREVIEW OF SYSTEMSAbdomen: No abdominal pain, nausea, vomiting, diarrhea No bloating, earlysatiety, indigestion, or increased flatulence. ++ constipationBladder: No dysuria, gross hematuria, urinary frequency, urinary urgency,or incontinence.Breast: No breast lumps, nipple d/c, overlying skin changes, redness orskin retraction.Allergies and current medication updated:YesEXAM: BP 114/64 LMP 08/27/2018GENERAL: pleasant, female in no apparent distressHEENT: Normocephalic, atraumatic, mucus membranes moist and no lesionsNECK: Supple, full range of motion, no adenopathy and thyroid normalDERMATOLOGY: Normal, without lesions, non-icteric and non-hirsuteBREAST: soft, non-tender, symmetric, no dominant mass, normalnipple-areolar complex, no lymphadenopathy and no nipple dischargeABDOMEN: soft, non-tender and no massesPELVIC: external genitalia normal, normal Bartholin's glands, urethra,Hanamaulu's glands, no vulvar lesions, no cervical lesions, good vaginalsupport, physiologic discharge present, normal appearing perineal body andperianal regionBIMANUAL: uterus normal size, shape and consistency, no adnexal masses andnon-tenderRECTOVAGINAL: deferred.NEURO: alert and oriented x3,exam grossly non-focalEXTREMITIES: normalASSESSMENT/PLAN:1) Health maintenance:Pap done with HPV.Mammogram starting age 40.Nutrition, exercise and routine health maintenance exams reviewed.Calcium/Vitamin D supplementation information provided.2) Contraception: none. 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 hpv w/genotype on HPV HighRisk Negative for HPV DNA high risk types: Normal 09-10-2018 [place] Other 31,33,35,39,45,51,52,56,58,59,66,68 by [facility] PCR. [place] ([id number]) Comment: Result Comment: This test wa s developed and its performance characteristics determined by [facility] [place] ([facility]) .It has not been cleared or approved by the FDA. -[facility] is regulated under C YUKI as qualified to perform high-complexity testing. This test is used f or clinical purposes. It should not be regarded as investigational or for re search. Performed By: #### HPVHRR ## ##[address] [phone]- [phone] HPV HighRisk Type 16 Negative for HPV DNA Normal 09-10-2018 [facility] high risk type 16 by [place] (77140) PCR. Comment: Performed By: #### HPVHRR ## ##[address] [id number]- [phone] HPV HighRisk Type 18 Negative for HPV DNA Normal 09-10-2018 [facility] high risk type 18 by [place] (42613) PCR. Comment: Performed By: #### HPVHRR ## ##[address] [id number]- [phone] cytology on 2018-09 CYTOLOGY ADDITIONAL Normal 09-10-2018 [facility] PRESENT [place] [facility]: [id number] 80[facility] ([id number] Physician: SHIV SILVESTREPECIMEN SUBMITTEDA: CERVICA L, SCREENING, FLUID FINAL DIAGNOSISA. CERVICAL, SCREENING, FLUIDSa tisfactory for interpretation.Negative for intraepithelial lesion or malignancy.This specimen has been analyzed by the ThinPrep Imaging System, anautomated imaging and review system, which assists the laboratory inevaluating cells on ThinPrep Pap te sts. Following automated imaging,selected somers from every slide are revie wed by a master pilot.ANDREY Rivera(ASCP) (Electronic Signatu re) ADDITIONAL PROCEDURE(S)HUMAN PAPILLOMA VIRUS Date Ordered: 09/12/2018 Da te Reported: 09/13/2018 Procedure Results and InterpretationNegative for HPV DNA high risk type 16 by PCR.Negative for HPV DNA high risk ty pe 18 by PCR.Negative for HPV DNA high risk types: 31,33,35,39,45,51,52,56,58,59,66, 68by PCR.This test was developed and its performance characteristics de termined by[facility] ([facility]).It has not been cleared or approved by the FDA. [facility] is regulate d underCLIA as qualified to perform high-complexity testing. This test is used forclinical purposes. It should not be regarded as i nvestigational or forresearch.CLINICAL DATA ROUTINE EXAM, HPV Testing: Yes, automatic HPV patients over 30Date of Last Menstrual Period:08/27/2018STAINSA: CERVICA L, SCREENING, FLUID THIN PREP GYNJennifer Mehdi Lomeli, Laboratory DirectorPatient ID #: [id number] of Report: 09/19/2018Date of Procedure: 09/10/2018Date of Receip t: 09/12/2018Submitted by: FALGUNI PATEL MDLocation: WOREFD iagnostic interpretation performed at [facility], [address] [place] [address].The Pap Smear is a screening test for cervical cancer. False negativeresults occur with all screening tests, emphasizing the need forrescreening at recommended intervals, and clinical correl ation. cnov on 2018-09-10 CNOV Office Visit Normal 09-10-2018 Enrique and (WOOB) ------CARLITO MONTEIROMead[facility] L ([id number]) 1985 FDat e Time Provider Udfbtohtyc93/3/18 4:10 PM FALGUNI CALVERT and During your visit today, we recorded the following information about you: Blood pressure 114/64Bethany ([phone]) Demarco Godwin Ma 09/10/2018 4:34 P M SignedChaperone offered: Patient declines.Falguni Villalpando MD 09/10/2018 4:34 PM SignedJenn shawanda Monteiro is a 33 year old who presents for her annualgynecologic exam witho ut complaints. Menses still a little irregular sincegoing off depo. Planning trip [facility] in March with kids ages 6/9.Menses: cycles every 21-35 days and 5 days of flow.Contraception: noneHPV vaccine: NoLast Pap: ?? 4 yrs agoHistory of abnormal pap: NoLast mammogram: 2017- benign lump ectomySexually active: YesHistory of STDS: NonePatient concerns for STD exposure: No.Pain with inter course: NoPostcoital bleeding: NoExercise: activeDiet: balancedObstetric History T2 L2 SA B1 TAB0 Ectopic0 Multiple0 Live [id number] MEDICAL HISTORYDiagnosis Date- Anxiety- DDD (degenerative d isc disease), lumbarPAST SURGICAL HISTORYProcedure Laterality Date- APPENDECTOMY- CHOLECYSTECTOM Y 2010- ERCP 2010 stent placed- PAST SURGICAL HISTORY OF 1992 surgery on nasal septum- PAST SURGICAL HISTORY OF 1996 lumpectomy on left breast- PAST SURGICAL HISTORY OF 2006 bulging disc repair- REMOVAL ADENOIDS,PRIMARY,<12 Y/O- REMOVAL OF OVARIAN CYST(S)FAMILY HISTORYProblem Relation Age of Onset- None Mother- Hypertension Father- other (hypercholestermia) Father- Cancer Maternal Grandmother- Heart Maternal GrandfatherSOCIAL HISTORYSocial HistorySubstance Use Topics- Smoking status: Former Smoke r- Smokeless tobacco: Never Used- Alcohol use NoREVIEW OF SYSTEMSAbdomen: No abdominal pain, nausea, v omiting, diarrhea No bloating, earlysatiety, indigestion, or increased flatulence. ++ constipationB ladder: No dysuria, gross hematuria, urinary frequency, urinary urgency, orincontinence.Breast: No br east lumps, nipple d/c, overlying skin changes, redness or skinretraction.Allergies and current medication updated:YesEXAM: BP 114/64 LMP 08/27/2018GENERAL: pleasant, female i n no apparent distressHEENT: Normocephalic, atraumatic, mucus membranes moist and no lesionsNECK: Valdivia pple, full range of motion, no adenopathy and thyroid normalDERMATOLOGY: Normal, without lesions, non -icteric and non-hirsuteBREAST: soft, non-tender, symmetric, no dominant mass, normal nipple-areolarc omplex, no lymphadenopathy and no nipple dischargeABDOMEN: soft, non-tender and no massesPELV IC: external genitalia normal, normal Bartholin's glands, urethra, Hanamaulu'sglands, no vulvar les ions, no cervical lesions, good vaginal support,physiologic discharge present, normal appearing pe rineal body and perianalregionBIMANUAL: uterus normal size, shape and consistency, no adnexal mass es andnon-tenderRECTOVAGINAL: deferred.NEURO: alert and oriented x3,exam grossly non-focalEXTREMITIES : normalASSESSMENT/PLAN:1) Health maintenance:Pap done with HPV.Mammogram starting age 40.Nutrition, e xercise and routine health maintenance exams reviewed.Calcium/Vitamin D supplementation information provided.2) Contraception: none. Contraceptive options reviewed and informationprovided.3) STD s creening: Declined STD check.4) Follow up one year or sooner as neededDenoe arauz, MDReferring Provider: SELF [200]Allergies As of Date: 09/10/2018 Noted Allergy ReactionDILAUDID (HY DROMORPHONE (BULK)) 04/15/2008 14 - Other: See Comments Comments: Had mental status change from pa ncreatitisPENICILLINS 04/15/2008 4 - HivesTYLENOL (ACETAMINOPHEN) 04/15/2008 11 - VomitingDate Reviewed: 09/10/2018Reviewed by: Estefany Lang Ma - Fully AssessedReason for Visit: Yahir santos Exam [187]Primary Visit Diagnosis:Encounter for gynecological examination without abnormal finding [Z01.419] Other Visit Diagnoses:Encounter for screening for malignant neoplasm of cervix [Z12.4] Special screening examination for human papillomavirus (HPV) [Z11.51]Order(s):PAP FLUID C ERVICAL SCREENING [[id number]] Order #: [id number] as of 09/10/2018 Sig: BACLOFEN ORA L Take by mouth.Medication notes this encounter MEDICATION, NON-DATABASE >> Estefany Lang Ma 2017 4:13 PM >> DEMARCO GODWIN ESTEFANY KEVIN Sep 10, 2018 4:13 PM Not takingProblem List As Of Omid e 09/10/2018 Noted Resolved Somatic dysfunction of spine, thoracic [M99.02] INVALID FOR* Somati c dysfunction of lumbar region [M99.03] INVALID FOR* Back pain [M54.9] INVALID FOR*Medications Disc ontinued During This Encounter MEDICATION, NON- DATABASE 09/10/2018 Class: Historical Med Si month control pill; unsure of name Disc: Reason for discontinue is not on file.Disposition: Return in 1 year (on 09/10/2019) for Annual Exam.Follow-up and Disposition History RecordedEncounter Number: [id number] Status:Closed by FALGUNI PATEL MD on 09/10/18 cnco on 2018-09-10 CNCO Letter Cassy Raymond 09-10 [facility] Feltis:How to activate your [place] ([id number]) [facility] [employer] Account 1. Visit the [employer] Signup page at [email or web address] 2. Identify yourself using your one-time use activation code: [email or web address] 3. Follow the on-screen prompts to choose your own secure username andpasswordThe following information will be necessary to access your account for thefirst time:Information needed for sign-up:Your custom activation code used one-time only for the initial accountset-up.Your date of birthThe last 4 digits of your social security numberWhat to do next:Fill in the requested information on the Identify Yourself Form [email or web address] , click Next.Create your login and password, choose a [employer] ID and password that will beeasy for you to use, but impossible for anyone else to guess.Pick a security question that will assist you in the event you forget yourpassword the next time you log-on.If you have difficulty activating your account, please call our Crowdtap at [phone] or toll free at .We hope you enjoy using [employer]!Kindest Regards,[facility] MyChart Team progress on 2018-08 Protein mass HNO ID: [id number]: Falguni hernandez 09-03-2018 [place] amber Mcleod: (none)Author Clinic Type: PhysicianType: Progress [place] NotesFiled: 09/03/2018 4:47 PMNote ([id number]) Text:Carolina Monteiro is a 33 year old female who presents for concernsregarding irregular bleeding. Pt reports last depo injection was 08/2017and since that time her menses resumed in February 2018. Since starting mensesshe reports menses are every 21-35 days, light bleeding for 4-5 days. Ptdenies significant pain, weight loss or gain. Pt reports does not wantfurther hormonal contraception and declines IUD. Pt just wants to makesure that the bleeding is normal. Pt reports had thyroid checked about oneyear ago at outside facility and it was normal. Pt reports Last pap about4 years ago and was normal- denies any history of abnormal pap. Pt deniespelvic pain, vaginal infections, odors, discharge, or bleeding withintercourse or BTB between cycles.PAST MEDICAL HISTORYDiagnosis Date- Anxiety- DDD (degenerative disc disease), lumbarPAST SURGICAL HISTORYProcedure Laterality Date- APPENDECTOMY- CHOLECYSTECTOMY 2010- ERCP 2010 stent placed- PAST SURGICAL HISTORY OF 1992 surgery on nasal septum- PAST SURGICAL HISTORY OF 1996 lumpectomy on left breast- PAST SURGICAL HISTORY OF 2006 bulging disc repair- REMOVAL ADENOIDS,PRIMARY,<12 Y/O- REMOVAL OF OVARIAN CYST(S)FAMILY HISTORYProblem Relation Age of Onset- None Mother- Hypertension Father- other (hypercholestermia) Father- Cancer Maternal Grandmother- Heart Maternal GrandfatherSocial History Marital status: Spouse name: Years of education: Number of children:Social History Main Topics Smoking status: Former Smoker Packs/day: 0.00 Years: 0.00 Smokeless tobacco: Never Used Alcohol use: No Drug use: No Sexual activity: Yes control/protection: CondomCurrent Outpatient Prescriptions:BACLOFEN ORAL Take by mouth.venlafaxine ER (EFFEXOR XR) 75 mg 24 hr capsule Take 1 capsule by mouthonce daily. (Patient not taking: Reported on 09/03/2018)MEDICATION, NON-DATABASE 3 month control pill; unsure of namemedroxyPROGESTERone (DEPO-PROVERA) 150 mg/mL injection Inject 1 mLintramuscularly every 12 weeks. (Patient not taking: Reported on09/03/2018)clonazePAM (KLONOPIN) 1 mg tablet Take 1 tablet by mouth once daily.(Patient not taking: Reported on 09/03/2018)azithromycin (ZITHROMAX) 500 mg tablet 2 tab po X 1 (Patient not taking:Reported on 09/03/2018)HYDROcodone-Ibuprofen (VICOPROFEN) 7.5-200 mg per tablet Take 1 tablet bymouth every 8 hours as needed. (Patient not taking: Reported on 09/03/2018)LORazepam 1 mg tablet Take 1 mg by mouth every 6 hours as needed.No current facility-administered medications for this visit.Allergies As of Date: 09/03/2018Allergen Noted ReactionDILAUDID [HYDROMORPHONE (BULK)] 04/15/2008 Other: See CommentsPENICILLINS 04/15/2008 HivesTYLENOL [ACETAMINOPHEN] 04/15/2008 VomitingFully Assessed 09/03/2018REVIEW OF SYSTEMSAbdomen: No abdominal pain, nausea, vomiting, diarrhea, or constipation.Bladder: no dysuria ..Expanded ROS: GENERAL: Negative for significant weight loss, feverAllergies and current medication updated:YesEXAM: BP 96/52 Wt 143 lb (64.9kg) LMP 08/27/2018GENERAL: pleasant, female in no apparent distressHEENT: Normocephalic and atraumaticNECK: full range of motionDERMATOLOGY: Normal, without lesions, non-icteric and non-hirsuteNEURO: alert and oriented x3,exam grossly non-focalEXTREMITIES: normalASSESSMENT AND PLAN:Encounter Diagnosis ICD-10-CM1. Abnormal uterine bleeding (AUB) N93.9 PELVIC US WHI2. Reassurance given- normal cycles 21-35 days- may take up to 12-18mo fornormal cycles after stopping depo3. Needs annual exam and pap - will return4. Call if heavy bleeding or painDeidre MD Irasema cnov on 2018-09-03 CNOV Office Visit Normal 09-03-2018 [place] and ([place]OO[place]) ------CAROLINA MONTEIRO ([id number]) 1985 FDat e Time Provider Ysoukxpqpk08/26/18 4:10 PM FALGUNI CALVERT and During your visit today, we recorded the following information about you: Blood pressure Weight Last ( ) Period 96 64.9 kg 8Dxiomy Villalpando MD 09/03/2018 4:47 PM SignedConnorlarashawanda Monteiro is a 33 year old female who pre sents for concerns regardingirregular bleeding. Pt reports last depo injection was 08/2017 and si nce thattime her menses resumed in February 2018. Since starting menses she reports mensesare every 21-3 5 days, light bleeding for 4-5 days. Pt denies significant pain,weight loss or gain. Pt reports hickey s not want further hormonal contraceptionand declines IUD. Pt just wants to make sure that the bleedi ng is normal. Ptreports had thyroid checked about one year ago at outside facility and it wasnormal. P t reports Last pap about 4 years ago and was normal- denies anyhistory of abnormal pap. Pt denies pelv ic pain, vaginal infections, odors,discharge, or bleeding with intercourse or BTB between cycles.PAST M EDICAL HISTORYDiagnosis Date- Anxiety- DDD (degenerative disc disease), lumbarPAST SURGICAL HISTORYP rocedure Laterality Date- APPENDECTOMY- CHOLECYSTECTOMY 2010- ERCP 2010 stent placed- PAST SURGICAL HISTORY OF 1992 surgery on nasal septum- PAST SURGICAL HISTORY OF 1996 lumpectomy on left breast- P AST SURGICAL HISTORY OF 2006 bulging disc repair- REMOVAL ADENOIDS,PRIMARY,<12 Y/O- RE MOVAL OF OVARIAN CYST(S)FAMILY HISTORYProblem Relation Age of Onset- None Mother- Hypertension Father- other (hypercholestermia) Father- Cancer Maternal Grandmother- Heart Maternal GrandfatherSocial H istory Marital status: Spouse name: Years of education: Number of children:Social History Main Topics Smoking status: Former Smoker Packs/day: 0.00 Years: 0.00 Smokeless tobacco: Never Use d Alcohol use: No Drug use: No Sexual activity: Yes control/protection: CondomCu rrent Outpatient Prescriptions:BACLOFEN ORAL Take by mouth.venlafaxine ER (EFFEXOR XR) 75 mg 24 hr cap nadiya Take 1 capsule by mouth oncedaily. (Patient not taking: Reported on 09/03/2018)MEDICATION, NON-D ATABASE 3 month control pill; unsure of namemedroxyPROGESTERone (DEPO-PROVERA) 150 mg/mL inj ection Inject 1 mLintramuscularly every 12 weeks. (Patient not taking: Reported on 09/03/2018)clona zePAM (KLONOPIN) 1 mg tablet Take 1 tablet by mouth once daily. (Patientnot taking: Reported on 09/03/2018)azithromycin (ZITHROMAX) 500 mg tablet 2 tab po X 1 (Patient not taking:Reported on 09/03/2018)HYDROcodone-Ibuprofen (VICOPROFEN) 7.5-200 mg per tablet Take 1 tablet by mouthevery 8 hours as needed. (Patient not taking: Reported on 09/03/2018)LORazepam 1 mg tablet Take 1 mg by mouth every 6 hours as needed.No current facility- administered medications for this visit.Allergies As of D ate: 09/03/2018Allergen Noted ReactionDILAUDID [HYDROMORPHONE (BULK)] 04/15/2008 Other: See Commen tsPENICILLINS 04/15/2008 HivesTYLENOL [ACETAMINOPHEN] 04/15/2008 VomitingFully Assessed 09/03REVIEW OF SYSTEMSAbdomen: No abdominal pain, nausea, vomiting, diarrhea, or constipation.Bl adder: no dysuria ..Expanded ROS: GENERAL: Negative for significant weight loss, feverAllergies and cur rent medication updated:YesEXAM: BP 96/52 Wt 143 lb (64.9kg) LMP 08/27/2018GENERAL: pleasant, female in no apparent distressHEENT: Normocephalic and atraumaticNECK: full range o f motionDERMATOLOGY: Normal, without lesions, non- icteric and non-hirsuteNEURO: alert and oriented x3,exam grossly non-focalEXTREMITIES: normalASSESSMENT AND PLAN:Encounter Diagnosis ICD -10-CM1. Abnormal uterine bleeding (AUB) N93.9 PELVIC US WHI2. Reassurance given- normal cycles 21-35 d ays- may take up to 12-18mo fornormal cycles after stopping depo3. Needs annual exam and pap - will r eturn4. Call if heavy bleeding or painDeidMahamed Rosas RN 09/04/2018 9:00 AM SignedAddended by: REGINALD GORE RN on: 09/04/2018 09:00 AM Modules accepted: May Delgado MD 09/04/2018 9:30 AM SignedAddended by: FALGUNI PATEL MD on: 09/04/2018 09:30 AM Modu les accepted: OrdersReferring Provider: SELF [200]Allergies As of Date: 09/03/2018 Noted Allergy [place] ctionDILAUDID (HYDROMORPHONE (BULK)) 04/15/2008 14 - Other: See Comments Comments: Had mental status change from pancreatitisPENICILLINS 04/15/2008 4 - HivesTYLENOL (ACETAMINOPHEN) 04/15/2008 1 1 - VomitingDate Reviewed: 09/03/2018Reviewed by: Lauren Jang Ma - Fully AssessedReason for Visit: Ir regular Menstrual Cycle [278] Cmt: has been irregular since stopping depoPrimary Visit Diagnosis: Abnormal uterine bleeding (AUB) [N93.9]Order(s):PELVIC US WHI [[id number]] Order #: [id number]: 1 US FEMALE PELVIS TRANSVAG [[id number]] Order #: [id number] FUTUREPrescriptions as of 09/03/2018 Sig: BACLOF EN ORAL Take by mouth. MEDICATION, NON-DATABASE 3 month control pill; u*Problem List As Of D ate 09/03/2018 Noted Resolved Somatic dysfunction of spine, thoracic [M99.02] INVALID FOR* Somati c dysfunction of lumbar region [M99.03] INVALID FOR* Back pain [M54.9] INVALID FOR*Medications Disc ontinued During This Encounter HYDROcodone- Ibuprofen (VICOPROFEN) 7* 10 t* 0 04/20/2016 09/03/2018 Class : Print RX Route: ORAL Sig: Take 1 tablet by mouth every 8 hours as needed. Patient not taking: Reported on 09/03/2018 Disc: Reason for discontinue is not on file. HYDROcodone-Ibuprofen (VICOP ROFEN) 7* 10 t* 0 04/20/2016 09/03/2018 Class: Print RX Route: ORAL Sig: Take 1 tablet by mouth every 8 hours as needed. Patient not taking: Reported on 09/03/2018 Disc: Reason for discontinue is no t on file. azithromycin (ZITHROMAX) 500 mg tabl* 2 ta* 0 04/20/2016 09/03/2018 Si tab po X 1 Patient not taking: Reported on 09/03/2018 Disc: Reason for discontinue is not on file. venlafaxine ER (EFFEXOR XR) 75 mg 24* 30 c* 0 09/07/2017 09/03/2018 Route: ORAL Sig: Take 1 capsule by mouth once daily. Patient not taking: Reported on 09/03/2018 Disc: Reason for discontinue is not on file. medroxyPROGESTERone (DEPO-PROVERA) 1* 1 Vi* 4 05/29/2017 09/03/2018 Route: INTRAMUSCULAR Sig: Inject 1 mL intramuscularly every 12 weeks. Patient not taking: Reported on 09/03/2018 Disc: Reason for discontinue is not on file. clonazePAM (KLONOPIN) 1 mg tablet 0 04/20/2016 09/03/2018 Class: Med Update Route: ORAL Sig: Take 1 tablet by mouth once daily. Patient not taking: Reported on 09/03/2018 Disc: Reason for discontinue is not on file. LORazepam 1 mg tablet 09/03/2018 Class: Historical Med Route: ORAL Sig: Take 1 mg by mouth every 6 hours as needed. Disc: Reason for discontinue is not on file.D isposition: Return in about 2 months (around 11/03/2018) for annual exam with DM.Follow-up and Dispos ition History RecordedEncounter Number: [id number] Status:Closed by FALGUNI PATEL MD on 09/03/18 final surgical pathology report on 2018-08-21 Final Surgical . Normal 08-21-2018 [facility] Pathology Report Pathology Reports [facility] [place] Accession: Collected Date/Time: Received Date/Time: Patholog ist: ([id number]) [id number] 08/17/2018 15:08 EST 08/20/2018 09:09 EST MD HERNESTO DE LA CRUZ Final Surgical Pathology Report DIAGNOSIS: A) SKIN, LEFT LOWER LEG -- DERMATOFIBROMA. B) SKIN, RIGHT POSTERIOR THIGH -- INTRADERMAL NEVUS. COMMENT: [facility] #[id number] CLINICAL INFORMATION: NEOPLASM OF UNCERTAIN BEHAVIOR OF SKIN SPECIMEN: A SKIN- LEFT LOWER LEG B SKIN- RIGHT POSTERIOR THIGH GROSS DESCRIPTION: Received in formalin labeled left is a 0.9 x 0.8 cm garcia irregular skin shave. The surface shows a 0.4 x 0.4 cm slightly pale r garcia skin and area. No orientation is given. The specimen is inked, sectioned, and entirely submitted in one cassette. B. Received in formalin labe led right is a 0.9 x 0.6 cm dark garcia irregular skin shave. The surface appears grossly unremarkable. No orientation is given. The specimen is inked, sectioned, and entirely submitted in one cassette. Dictated by Annie SWEET ([facility]) MICROSCOPIC DESCRIPTION: A&B) Slides reviewed. Electronically Signed by Pathology Report verified by [facility] Electronically signed by HERNESTO BEE MD Sign out Date: 08/21/2018 16:19 Performing Lab: [facility], [address] [place] [address] Comment: Performed By: #### SPFR #### [place] [address] xr spine lumbar 2 views on 2018-06-22 XR SPINE ORIGINAL Normal 06-22-2018 [facility] LUMBAR 2 VIEWS XR SPINE LUMBAR 2 VIEWS [facility] [place] ([id number]) CLINICAL STATEMENT: ddd COMPARISON: None FINDINGS:5 lumbar type verte bral bodies are present. Vertebral body height and alignment is maintained with a minimal dextroscoliosis. There is disc space narrowing at L5-S1 with endplate sclerosis and anterior lipping. Less exten sive degenerative changes are noted at L1-L2. There are facet degenerative changes present. The soft tissue structures are unremarkable. Post cholecystectomy changes are present. IMPRESSION:Degenerative change. Interpreted By: Usha Chatman MD Preliminary Report By: Usha Chatman MD Electronically Signed By: Usha Chatman MD Dictated Date: 06/22/2018 12:43:15 PM Prelim Date: 06/22/2018 12:43:15 PM Sign Date: 06/22/2018 12:43:55 PM No panel information on 2010-03-19 Cholesterol [Mass/Vol] OPERATIVE PROCEDURE: 03-19-2010 [facility] Lap shadi ([id number]) CLINICAL INFORMATION: Cholelithiasis Cholesterol [Mass/Vol] FINAL DIAGNOSIS: 03-19-2010 [facility] GALLBLADDER, CHOLECYSTECTOMY - VERY MILD CHRONIC CHOLECYSTIT IS. ([id number]) SPECIMEN: GALLBLADDER CONVERTED ELECTRONIC KAIA DURHAM M.D., PATHOLOGIST 03-19-2010 [facility] SIGNATURE (Electronic signature on file) ([id number]) Final Signed Out: 03/19/2010 15:16 CONVERTED GROSS GROSS DESCRIPTION: 03-19 [facility] DESCRIPTION Gallbladder ([id number] ) The specimen is received in a container labeled gallbladder. Received is an unopened gallbladder measuring 7 x 4 x 4 cm. The surface is smooth, tense, pink-garcia. The specimen is opened and the lumen c ontains approximately 1 cc of green-yellow bile. The bile is filtered and no stones are identified. The mucosa is velvety to finely granular, orange-yellow. The thickness of the wall averages 0.1 cm. A outside industrial sales representative sample of the gallbladder is valdivia bmitted in a single cassette. SDS/SMS/gpl MICROSCOPIC DESCRIPTION: Slides reviewed. EDS/gpl CONVERTED ORDERING Ordering Provider: HERNESTO 03-19-2010 [facility] PROVIDER GEGE ([id number]) Vital Signs Vital Sign Description Value / Unit Date Location The following section is limited to 5 en tries per type and includes entries from the following time range: 20200720 - 20200709 2. Body weight 67.13 kg 07-20-2020 [facility] ([id number]) BP Diastolic 60 mm[Hg] 07-20-2020 [facility] ([id number]) BP Systolic 100 mm[Hg] 07-20-2020 [facility] ([id number]) Encounters Date Type Reason Provider Location 07-20-2020 - Patient encounter Heavy episode of Lawanda (Cnm) OB/G ynecology 07-20-2020 procedure vaginal bleeding [facility] Comment: Episode of heavy vaginal ble eding (Primary Dx) 11-09-2018 - Patient encounter HEALTH DRaBEMPLOYEE Ignacio Bryant 11-09-[address]EMPLOYEE [facility] DRBaEMPLOYEE ([id number]) 11-08-2018 - Patient encounter CHARLIE Bryant 11-08-2018 procedure DIEGO CHARLIE CORTEZ [facility] ([id number]) 09-10-2018 - Patient encounter FALGUNINOE EASTMANJOSÉ MIGUELT [facility] 09-11-2018 procedure PATEL Sanchez (0000 0) 09-03-2018 - Patient encounter FALGUNI NEASHLIET [facility] 09-04-2018 procedure PATEL Sanchez (0000 0) 03-18-2010 - Patient encounter Hernesto Wu [facility] 03-18-2010 procedure 03-18-2010 Results Only [facility] Procedures Procedure Name Date Provider Location CONVERTED SURGICAL PATHOLOGY 03-18-2010 Hernesto Villanueva cammy [facility] ([id number]) Plan of Treatment Plan Description Date Location HPV TESTING HPV TESTING 09-10-2023 - [facility] 09-10-2023 ([id number]) PAP TESTING PAP TESTING 09-10-2023 - [facility] 09-10-2023 ([id number]) INFLUENZA (#1) INFLUENZA (#1) 2020 - [facility] 06-09-2020 ([id number]) DTAP,TDAP,TD (1 - Tdap) DTAP,TDAP,TD (1 - Tdap) 2002 - [facility] 2002 ([id number]) HEPATITIS C SCREENING HEPATITIS C SCREENING 2001 [facility] 2001 ([id number]) HIV SCREENING HIV SCREENING 2001 - [facility] 2001 ([id number]) HCG QUANTITATIVE HCG QUANTITATIVE Lab 07-20-2021 [facility] Routine Episode of heavy ([id number]) vaginal bleeding 1 Occurrences starting 07/20/2020 until 07/20/2021 Comment: 1 Occurrences starting 07/20 until 07/20/2021 HCG QUANTITATIVE HCG QUANTITATIVE Lab Routine Primary [facility] ([id number]) amenorrhea 07/20/2020 3:31 PM EDT Immunizations Vaccine Notes Status Date Location Influenza Vaccine, influenza virus (completed) 10-19-2012 [facility] Split-Non Spec vaccine, unspecified (4419 5) formulation Payers Payer Name Policy Number [facility] [id number] [facility] ([id number] [phone]) [facility] [id number] [facility] (44 [phone]) The following information is from the original human readable contentNo Payer Records FoundNo Payer Records FoundNo Payer Records FoundNo Payer Records FoundNo Payer Records FoundNo Payer Records FoundNo Payer Records Found Social History Type Social History Description Date Locat ion Tobacco smoking status Unknown if ever smoked [facility] ([id number]) [facility] Sex Assigned At Not on file [facility] ([id number]) Tobacco smoking status Former smoker 07-20-2020 [facility] ([id number]) SDIS Tobacco use and exposure Never used 07-[facility] ([id number]) Alcohol intake Current non-drinker of 07-20-2020 [facility] ([id number]) alcohol (finding) Exposure to SARS-CoV-2 Not sure [facility] ([id number]) (event) The following information is from the original human readable contentNo Social History Records FoundNo Social History Records FoundNo Social History Records FoundNo Social History Records FoundNo Social History Records FoundNo Social History Records FoundNo Social History Records Found Summary Purpose Family History No Family History Records FoundNo Family History Records FoundNo Family History Records FoundNo Family History Records Found Advance Directives No Advanced Directives Records FoundNo Advanced Directives Records FoundNo Advanced Directives Records FoundNo Advanced Directives Records Found Instructions Patient InstructionsLawanda Mcghee) - 07/20/2020 3:17 PM EDTStart Ibuprofen 800 mg by mouth every 8 hours until complete with period. documented in this encounter History of Present Illness Lawanda Mcghee) - 07/20/2020 2:54 PM EDT Carolina Monteiro is a 35 year old female who presents for problem visit of cramping and vaginal bleeding starting today at 1 pm. Patient works a [employer]. HPI: Patient stopped Depo-Provera shot in April 2020. Had spotting approximately 1 month ago for a couple of days. Patient assumed this was her period. Today began cramping and bleeding heavy to the point that she needed to leave work to change scrubs. Denies passing any clots. Has not taken any medication for pain. Has history of ovarian cysts and unsure if that is what is causing pain. Not currentlysexually active. Last intercourse was on 05/08/20. Has not taken any control since Depo injection and does not desire control due to effects on mood that patient experiences. PAST MEDICAL HISTORY Diagnosis Date ? Anxiety ? DDD (degenerative disc disease), lumbar PAST SURGICAL HISTORY Procedure Laterality Date ? APPENDECTOMY ? CHOLECYSTECTOMY 2010 ? ERCP 2010 stent placed ? PAST SURGICAL HISTORY OF 1992 surgery on nasal septum ? PAST SURGICAL HISTORY OF 1996 lumpectomy on left breast ? PAST SURGICAL HISTORY OF 2006 bulging disc repair ? REMOVAL ADENOIDS,PRIMARY,<12 Y/O ? REMOVAL OF OVARIAN CYST(S) FAMILY HISTORY Problem Relation Age of Onset ? None Mother ? Hypertension Father ? other (hypercholestermia) Father ? Cancer Maternal Grandmother ? Heart Maternal Grandfather Social History Tobacco Use ? Smoking status: Former Smoker ? Smokeless tobacco: Never Used Substance Use Topics ? Alcohol use: No ? Drug use: No Current Outpatient Medications Medication Sig ? clonazePAM (KLONOPIN) 1 mg tablet Take 1 mg by mouth twice daily as needed. ? BACLOFEN ORAL Take by mouth. No current facility-administered medications for this visit. Allergies As of Date: 07/20/2020 Allergen Noted Reaction DILAUDID [HYDROMORPHONE (BULK)] 04/15/2008 Other: See Comments PENICILLINS 04/15/2008 Hives TYLENOL [ACETAMINOPHEN] 04/15/2008 Vomiting Fully Assessed 07/20/2020 REVIEW OF SYSTEMS Abdomen: Positive for bloating today, no early satiety, indigestion, or increased flatulence. No nausea, vomiting, diarrhea, or constipation. Positive for abdominal pain (cramping) Bladder: No dysuria, gross hematuria, urinary frequency, urinary urgency, or incontinence. Expanded ROS: N/A Allergies and current medication updated:Yes EXAM: BP 100/60 Wt 148 lb (67.1kg) LMP 07/20/2020 GENERAL: pleasant, female in no apparent distress HEENT: Normocephalic NECK: Supple and full range of motion DERMATOLOGY: Normal BREAST: deferred CHEST: Normal inspiratory effort ABDOMEN: soft PELVIC: deferred BIMANUAL: deferred NEURO: alert and oriented x3,exam grossly non-focal EXTREMITIES: normal ASSESSMENT/PLAN: 1. Episode of heavy vaginal bleeding - ICD9: 626.9, ICD10: N93.9 Suspect this is regular period and body regulating self after stopping Depo injection - HCG QUANTITATIVE - HCG QUANTITATIVE Patient is unable to give urine sample for HCG. Will collect serial levels at this time. Will notify patient of results Discussed starting Ibuprofen 800 mg PO every 8 hours until end of period Patient agrees with plan of care RTO- PRN Lawanda Mcghee APRN.CNM documented in this encounter Assessments Diagnosis Episode of heavy vaginal bleeding - Prim josé miguel Additional Source Comments FOR RECORDS PERTAINING TO PATIENTS WHO ARE OR HAVE BEEN ENROLLED IN A CHEMICAL DEPENDENCY/SUBSTANCE ABUSE PROGRAM, SOME INFORMATION MAY BE OMITTED. This clinical summary was aggregated from multiple sources. Caution should be exercised in using it in the provision of clinical care. This summary normalizes information from multiple sources, and as a consequence, information in this document may materially changethe coding, format and clinical context of patient data. In addition, data may be omittedin some cases. CLINICAL DECISIONS SHOULD BE BASED ON THE PRIMARY CLINICAL RECORDS. [facility] provides no warranty or guarantee of the accuracy or completeness of information in this document. UNRECOGNIZED CONTENT PROVIDED BELOW FOR UNRECOGNIZED SECTION INFORMATION SOURCE DATE CREATED AUTHOR AUTHOR'S ORGANIZATIO N 09/21/2018 [facility] DATE CREATED AUTHOR AUTHOR'S ORGANIZATIO N 11/26/2018 [facility] DATE CREATED AUTHOR AUTHOR'S ORGANIZATIO N 11/27/2018 [facility] Ref erence Lab DATE CREATED AUTHOR AUTHOR'S ORGANIZATIO N 06/20/2019 [facility] Found ation ([place]) UNRECOGNIZED CONTENT PROVIDED BELOW FOR UNRECOGNIZED SECTION No Status Records Found UNRECOGNIZED CONTENT PROVIDED BELOW FOR UNRECOGNIZED SECTION Source Comments In the event this information is protected by the Federal Confidentiality of Alcohol and Drug Abuse Patient Records regulations: The Federal rules restrict any use of the information to criminally investigate or prosecute any alcohol or drug abuse patient.[facility] the event this information is protected by the Federal Confidentiality of Alcohol and Drug Abuse Patient Records regulations: The Federal rules restrict any use of the information to criminally investigate or prosecute any alcohol or drug abuse patient.[facility] UNRECOGNIZED CONTENT PROVIDED BELOW FOR UNRECOGNIZED SECTION Reason for Visit Reason Comments Abdominal Pain bloating, back pain
--- OUTSIDE RECORDS SUMMARY | 2020-07-21 07:52 | XMS RPT_ITS | CCD ---
:1985 External Reference #:[id number] Author Organization [facility] Care Team Providers Name Role Phone MILTON PATEL Unavailable Unavailable MILTON PATEL Unavailable Unavailable KEE CORTEZ Admitting Unavailable KEE CORTEZ Attending Unavailable KEE CORTEZ Primary Care Unavailable EMPLOYEE Admitting Unavailable EMPLOYEE Attending Unavailable EMPLOYEE Primary Care Unavailable Alan Crowe Primary Care Provider Jordon Wetzel Primary Care Provider Allergies Reported Allergen Reaction(s) Severity Date of Onset Location Acetaminophen Vomiting 04-15-2008 - [place] [facility] Translations: [ [facility] ACETAMINOPHEN] Repository HYDROmorphone Other: See Comments 04-15-2008 - [facility] Translations: [ [facility] HYDROMORPHONE (BULK)] Reposi tory Penicillins Hives 04-15-2008 - [place] [facility] Translations: [ [facility] PENICILLINS] Repository Medications Medication Name Sig Date Prescriber Location Baclofen BACLOFEN ORAL Take by [facility] Provider [facility] mouth. 0 Active Provider (04666) Comment: Take by mouth. clonazePAM clonazePAM (KLONOPIN) 1 Ccf Provider Ccf [facility] (08021) mg tablet Take 1 mg by Provider mouth twice daily as needed. 0 Active Comment: Take 1 mg by mouth twice keily ly as needed. Problems Active Problems Category Problem Name Status Date Location Other bone disease and Somatic dysfunction Active 02-25-2013 - [facility] musculoskeletal of thoracic region (18880 ) deformities Other bone disease and Somatic dysfunction Active 02-25-2013 - [facility] musculoskeletal of lumbar region (04929) deformities Other female genital Heavy episode of Active [facility] disorders vaginal bleeding (81485) Past or Other Problems Category Problem Name Status Date Location Spondylosis; intervertebral Backache Completed 02-25-2013 - [facility] disc disorders; other back ( 26647) problems Results Result Name Value Range Unit Interpretation Flag Date Location nicotine/cotinine, serum [ccl] on 2018-11-13 NICOTINE/COTININE, SERUM [CCL] Normal 11-13-2018 [facility] ( 37660) Comment: Result Comment: _NICOTINE/CO TININE, SERUM [CCL]_ [...] developed and its performance characteristics determined by [facility]. It has not been cleared or approved by the FDA. [facility] Juli acuna is authorized under CLIA to perform high-complexity test ing. This test is used for clinical purposes. It should not be r egarded as investigational or for research. [facility] Laboratorie s [address] [place] [address] Mayra Forbes M.D. [id number] Performed By: #### [id number] ## ## [facility] [place], [place] [phone] nicotine/cotinine o n 2018-11-13 Nicotine <2 <2 Normal 11-13-2018 [facility] Reference Lab (98408) Comment: Performed By: #### MEASLG, M UMPSG, RUBIGG #### [facility] Laborator s Routine Lab [address] [place] [phone] #### NICOT #### [facility] s Chemistry [address] [phone] Nornicotine Absent Absent Normal 11-13-2018 [facility] Reference Lab (48110) Comment: Performed By: #### MEASLG, M UMPSG, RUBIGG #### [facility] Laboratorie s Routine Lab [address] [place] [phone] #### NICOT #### [facility] Chemistry [address] [phone] Trimethoprim+Sulfamethoxazole susc <2 <2 Addie l 11-13-2018 [facility] Reference [facility] (24880) Comment: Performed By: #### MEASLG, M UMPSG, RUBIGG #### [facility] Laboratorie s Routine Lab [address] [place], [place] [address] #### NICOT #### [facility] Labor[facility] s Chemistry [address] [place] [phone] rubella igg antibody on 2018-11-09 Rubella IgG Ab 3.96 Index Value Normal 11-09-2018 [facility] Reference Lab (77713) Comment: Performed By: #### CAROLG, M UMPSG, RUBIGG #### [facility] Laboratorie s Routine Lab [address] [place] [address] #### NICOT #### [facility] Chemistry [address] [place] [address] Rubella IgG Ab, Qual Positive Negative Abnormal 9 [facility] Reference Lab (37984) Comment: Performed By: #### CAROLG M UMPSG, RUBIGG #### [facility] Laboratorie s Routine Lab [address] [place] [phone] #### NICOT #### [facility] s Chemistry [address] [address] rubella igg antibody [ccl] on 2018-11-09 RUBELLA IgG ANTIBODY [CCL] Normal [facility] (63694) Comment: Result Comment: _RUBELLA IGG ANTIBODY [CCL]_ [...] indicative of the amount of antibody present. [facility] Laboratorie s [facility] [place] [address] Mayra Forbes M.D. [id number] Performed By: #### [id number] ## ## Ignacio Count includes the [facility],[address] [place], [place] [address] mumps igg ab on 201 06-10-01 Mumps IgG Ab 113.0 AU/mL Normal 11-09-2018 [facility] Reference [facility] (56286) Comment: Performed By: #### Marlon LOPEZ RUBIGG #### [facility] Laboratorie s Routine Lab [address] [place] [phone] #### NICOT #### [facility] Chemistry [address] [place] [phone] Mumps IgG, Qual Positive Negative Abnormal 11-09-2018 [facility] Reference Lab (41123 ) Comment: Performed By: #### Marlon LOPEZ RUBIGG #### [facility] Laboratorie s Routine Lab [address] [place] [phone] #### NICOT #### [facility] s Chemistry [address] [place] [phone] mumps igg ab [ccl] on 2018-11-09 MUMPS IGG AB [CCL] Normal 11-09-2018 [facility] (33492) Comment: Result Comment: _MUMPS IGG A B [...] of the amount of antibody prese nt. [facility] s [address] [place] [address] Mayra Forbes M.D. [id number] Performed By: #### [id number] ## ## [facility],[address] [place], [place] [phone] measles igg antibody on 2018-11-09 Measles IgG Ab, Qual Negative Abnormal 9 [facility] Reference Lab (29673) Comment: Result Comment: Positive Pre sence of detectable measles virus IgG antibodies. A positive result generally indicates exposure to measles virus or previous vaccination. Performed By: #### MEASLG, M UMPSG, RUBIGG #### [facility] Laboratorie s Routine Lab [address] [place], [place] [address] #### NICOT #### [facility] s Chemistry [address] [place], [place] [phone] Measles IgG Antibody 33.9 AU/mL Normal 9 [facility] Reference [facility] (18898) Comment: Performed By: #### MEASLG, M UMPSG, RUBIGG #### [facility] Laboratorie s Routine Lab [address] [place], [place] [address] #### NICOT #### [facility] s Chemistry [address] [place], [place] [phone] measles igg antibody [ccl] on 2018-11-09 MEASLES IGG ANTIBODY [CCL] Normal [facility] (76666) Comment: Result Comment: _MEASLES IGG ANTIBODY [CCL]_ [...] of the amount of antibody prese nt. [facility] Laboratorie s [facility] [place] [phone] Mayra Forbes M.D. [id number] Performed By: #### [id number] ## ## [facility],[address] [place] [address] hepb surfaceab,quant on 2018-11-09 HepB SurfaceAb,Quant >1000.00 <8.00 High 9 [facility] Reference Lab (43581) Comment: Performed By: #### JOHN M UMPSG, RUBCHASEG #### [facility] Laboratorie s Routine Lab [address] [place] [address] #### NICOT #### [facility] Labor[facility] s Chemistry [address] [place] [address] hep b surface ab, quant [ccl] on 2018-11-09 HEP B SURFACE AB, QUANT [CCL] Normal 11-09-2018 [facility] (80140) Comment: Result Comment: _HEP B SURFA CE AB, QUANT [CCL]_ HEP B SURFACE AB, QUANT [CCL ] Reported: 11/09/2018 11:55 S tatus=F TEST RESULT FLAG RANGE UNITS HepB SurfaceAb,Quant >1000.0 0 H <8.00 mIU/mL 11/09/18.1158.[email or web address].ATLR [facility] Laboratorie s [address] [place] [address] Mayra Forbes M.D. [id number] Performed By: #### [id number] ## ## [facility],[address] [place] [address] lipid profile on 27-10-30 Cholesterol in HDL mass conc 70 40 - 60 mg/dl High 0 11-08-2018 [facility] ( 69535) Comment: Performed By: #### [id number] ## ## [facility],[address] [place] [address] Cholesterol in LDL mass 98 0 - 129 mg/dl Normal 2018 [facility] ( 90054) Comment: Performed By: #### [id number] ## ## [facility],[address] [place] [address] Cholesterol mass conc 185 0 - 200 mg/dl Normal 11-08-19 [facility] ( 20418) Comment: Performed By: #### [id number] ## ## [facility],[address] [place] [address] Cholesterol.total/Cholesterol in HDL 2.6 0.0 - 5.0 Nor mal 11-08-2018 [facility] (84234) Comment: Performed By: #### [id number] ## ## [facility],[address] [place] [address] Protein mass conc Normal 11-08-2018 [facility] (28855) Comment: Result Comment: LIPID PROFIL E Performed By: #### [id number] ## ## [facility],[address],[place] [address] Triglyceride mass conc 84 0 - 150 mg/dl Normal 019 [facility] ( 69800) Comment: Performed By: #### [id number] ## ## [facility],[address] [facility] [address] glucose on Glucose mass conc 95 74 - 106 mg/dl Normal 11-08-2018 [facility] (49985) Comment: Performed By: #### [id number] ## ## [facility],[address] [facility] [address] drug screen urine medic on 2018-11-08 Amphetamines Ql (U) NEG Normal 11-08-2018 [facility] (74976) Comment: Performed By: #### [id number] ## ## [facility],[address] [facility] [address] B-DIAZEPINES NEG Normal 11-08-2018 [facility] (27323) Comment: Performed By: #### [id number] ## ## [facility],[address] [facility] [address] BARBITURATES NEG Normal 11-08-2018 [facility] (38408) Comment: Performed By: #### [id number] ## ## [facility],[address] [facility] [address] Cocaine Ql (U) NEG Normal 11-08-2018 [facility] (18786) Comment: Performed By: #### [id number] ## ## [facility],[address] [facility] [address] DRUG SCREEN URINE MEDIC Normal 2018 [facility] (97350) Comment: Result Comment: DRUG SCREEN - URINE Performed By: #### [id number] ## ## [facility],[address] [facility] [place] [address] Methadone Ql (U) NEG Normal 11-08-2018 [facility] (66934) Comment: Performed By: #### [id number] ## ## [facility],[address] [facility] [address] Opiates Ql (U) NEG Normal 11-08-2018 [facility] (90885) Comment: Performed By: #### [id number] ## ## [facility],[address] [facility] [address] PCP NEG Normal 11-08-2018 [facility] (12672) Comment: Performed By: #### 910130 ## ## [facility],[address] [facility] [address] TCA POS Normal 11-08-2018 [facility] (45999) Comment: Performed By: #### 056245 ## ## [facility],[address] [facility] [address] THC NEG Normal 11-08-2018 [facility] (19291) Comment: Result Comment: PATIENTS REC EIVING PROTON PUMP INHIBITORS MAY DEMONSTRATE FALSE POSITIVE THC/CANNABINOID RESULTS. AN ALTERNATIVE CONFIRMATORY METHOD SHOULD BE CONSIDERED TO VERIFY POSITIVE RESULTS. Performed By: #### [id number] ## ## [facility],[address] [facility] [address] progress on 2018-09 Protein mass HNO ID: [id number]: Falguni hernandez 09-10-2018 [facility] Nejazmine PatelService: [place] (none)Author Type: ( [id number]) PhysicianType: Progress NotesFiled: 09/10/2018 4:34 PMNote Text:Carolina Monteiro is a 33 year old who presents for her annualgynecologic exam without complaints. Menses still a little irregularsince going off depo. Planning trip to [place] in March with kids ages6/9.Menses: cycles every 21-35 days and 5 days of flow.Contraception: noneHPV vaccine: NoLast Pap: ?? 4 yrs agoHistory of abnormal pap: NoLast mammogram: 2017- benign lumpectomySexually active: YesHistory of STDS: NonePatient concerns for STD exposure: No.Pain with intercourse: NoPostcoital bleeding: NoExercise: activeDiet: balancedObstetric History T2 L2 SAB1 TAB0 Ectopic0 Multiple0 Live [id number] MEDICAL HISTORYDiagnosis Date- Anxiety- DDD (degenerative disc [...] massesPELVIC: external genitalia normal, normal Bartholin's glands, urethra,[place]'s glands, no vulvar lesions, no cervical lesions, [...] neededFalguni Villalpando MD Protein mass HNO ID: [id number] Normal 09-10-20 18 [facility] conc Author: Estefany Lang Ma [place] Service: (none) (000 00) Author Type: (none) Type: Progress Notes Filed: 09/10/2018 4:34 PM Note Text: Potato Spotter offered: Patient declines. hpv w/genotype on HPV HighRisk Negative for HPV DNA high risk types: Normal 09-10-2018 [place] Other 31,33,35,39,45,51,52,56,58,59,66,68 by [facility] PCR. [place] ([address]70) Comment: Result Comment: This test wa s developed and its performance characteristics determined by [facility]'s [facility] [place] ([facility]) .It has not been cleared or approved by the FDA. -[facility] is regulated under C YUKI as qualified to perform high-complexity testing. This test is used f or clinical purposes. It should not be regarded as investigational or for re search. Performed By: #### HPVHRR ## ##[address] [phone]- [phone] HPV HighRisk Type 16 Negative for HPV DNA Normal 09-10-2018 [facility] high risk type 16 by [place] (41010) PCR. Comment: Performed By: #### HPVHRR ## ##[address] [phone]- [phone] HPV HighRisk Type 18 Negative for HPV DNA Normal 09-10-2018 [facility] high risk type 18 by [place] (56814) PCR. Comment: Performed By: #### HPVHRR ## ##[address] [phone] cytology on 2018-09 CYTOLOGY ADDITIONAL Normal 09-10-2018 [facility] PRESENT [place] [facility]: [id number] [facility] ([address] Physician: SHIV SILVESTREPECIMEN SUBMITTEDA: CERVICA L, SCREENING, FLUID FINAL DIAGNOSISA. CERVICAL, SCREENING, FLUIDSa tisfactory for interpretation.Negative for intraepithelial lesion or malignancy.This specimen has been analyzed by the ThinPrep Imaging System, anautomated imaging and review system, which assists the laboratory inevaluating cells on ThinPrep Pap te sts. Following automated imaging,selected somers from every slide are revie wed by a image archivist.ANDREY Rivera(ASCP) (Electronic Signatu re) ADDITIONAL PROCEDURE(S)HUMAN PAPILLOMA VIRUS Date Ordered: 09/12/2018 Da te Reported: 09/13/2018 Procedure Results and InterpretationNegative for HPV DNA high risk type 16 by PCR.Negative for HPV DNA high risk ty pe 18 by PCR.Negative for HPV DNA high risk types: 31,33,35,39,45,51,52,56,58,59,66, 68by PCR.This test was developed and its performance characteristics de termined by[facility]'s [facility] ineInstitute ([facility]).It has not been cleared or approved by the FDA. [facility] is regulate d underCLIA as qualified to perform high-complexity testing. This test is used forclinical purposes. It should not be regarded as i nvestigational or forresearch.CLINICAL DATA ROUTINE EXAM, HPV Testing: Yes, automatic HPV patients over 30Date of Last Menstrual Period:08/27/2018STAINSA: CERVICA L, SCREENING, FLUID THIN PREP GYNJennifer Mehdi Lomeli, Laboratory DirectorPatient ID #: [id number] of Report: 09/19/2018Date of Procedure: 09/10/2018Date of Receip t: 09/12/2018Submitted by: FALGUNI PATEL MDLocation: WOREFD iagnostic interpretation performed at [facility], [address] [place] [address].The Pap Smear is a screening test for cervical cancer. False negativeresults occur with all screening tests, emphasizing the need forrescreening at recommended intervals, and clinical correl ation. cnov on 2018-09-10 CNOV Office Visit Normal 09-10-2018 Enrique and (WOOB) ------[facility]LITO [facility]IROSt[facility] ([id number]) 1985 FDat e Time Provider Gnlillyhpd01/3/18 4:10 PM FALGUNI CALVERT and During your [...] irregular sincegoing off depo. Planning trip to [facility] in March with kids ages 6/9.Menses: cycles every 21-35 days and 5 days of flow.Contraception: noneHPV vaccine: NoLast Pap: ?? 4 yrs agoHistory of abnormal pap: NoLast mammogram: 2017- benign lump ectomySexually active: YesHistory of STDS: NonePatient concerns for STD exposure: No.Pain with inter course: NoPostcoital bleeding: NoExercise: activeDiet: balancedObstetric History T2 L2 SA B1 TAB0 Ectopic0 Multiple0 Live [id number] MEDICAL HISTORYDiagnosis Date- Anxiety- DDD (degenerative d [...] external genitalia normal, normal Bartholin's glands, urethra, [place]'sglands, no vulvar les ions, no cervical lesions, [...] papillomavirus (HPV) [Z11.51]Order(s):PAP FLUID C ERVICAL SCREENING [[id number]] Order #: [id number] as of 09/10/2018 Sig: BACLOFEN ORA L [...] Exam.Follow-up and Disposition History RecordedEncounter Number: [id number] Status:Closed by FALGUNI PATEL MD on 09/10/18 cnco on 2018-09-10 CNCO Letter Cassy Raymond 09-10 [facility] Feltis:How to activate your [place] ([id number]) [facility] [employer] Account 1. Visit the [employer] Signup page at [email or web address] 2. Identify yourself using your one-time use activation code: [email or web address] 3. Follow the on-screen prompts to choose your own secure username andpasswordThe following information will be necessary to access your account for thefirst time:Information needed for sign-up:Your custom activation code used one-time only for the initial accountset-up.Your date of birthThe last 4 digits of your social security numberWhat to do next:Fill in the requested information on the Identify Yourself Form [email or web address] , click Next.Create your login and password, choose a [employer] ID and password that will beeasy for you to use, but impossible for anyone else to guess.Pick a security question that will assist you in the event you forget yourpassword the next time you log-on.If you have difficulty activating your account, please call our [employer] at [phone] or toll free at .We hope you enjoy using [employer]!Kindest Regards,[facility] MyChart Team progress on 2018-08 Protein mass HNO ID: [id number]: Falguni hernandez 09-03-2018 [place] amber Mcleod: (none)Author Clinic Type: PhysicianType: Progress [place] NotesFiled: 09/03/2018 4:47 PMNote (56840) Text:Carolina Monteiro is a 33 year old [...] Normal 09-03-2018 [place] and (WOOB) ------CAROLINA MONTEIRO ([id number]) 1985 FDat e Time Provider Gogqlvzirv66/26/18 4:10 PM FALGUNI CALVERT and During your [...] [200]Allergies As of Date: 09/03/2018 Noted Allergy [place] ctionDILAUDID (HYDROMORPHONE (BULK)) 04/15/2008 14 - Other: See Comments Comments: Had mental status change from pancreatitisPENICILLINS 04/15/2008 4 - HivesTYLENOL (ACETAMINOPHEN) 04/15/2008 1 1 - VomitingDate Reviewed: 09/03/2018Reviewed by: Lauren Jang Ma - Fully AssessedReason for Visit: Ir regular Menstrual Cycle [278] Cmt: has been irregular since stopping depoPrimary Visit Diagnosis: Abnormal uterine bleeding (AUB) [N93.9]Order(s):PELVIC US WHI [[id number]] Order #: [id number]: 1 US FEMALE PELVIS TRANSVAG [[id number]] Order #: [id number] FUTUREPrescriptions as of 09/03/2018 Sig: BACLOF EN [...] DM.Follow-up and Dispos ition History RecordedEncounter Number: [id number] Status:Closed by FALGUNI PATEL MD on 09/03/18 final surgical pathology report on 2018-08-21 Final Surgical . Normal 08-21-2018 [facility] Pathology Report Pathology Reports [facility] [place] ([place]) Accession: Collected Date/Time: Received Date/Time: Patholog ist: ([id number]) [id number] 08/17/2018 15:08 EST 08/20/2018 09:09 EST MD HERNESTO DE LA CRUZ Final Surgical Pathology Report DIAGNOSIS: A) SKIN, LEFT LOWER LEG -- DERMATOFIBROMA. B) SKIN, RIGHT POSTERIOR THIGH -- INTRADERMAL NEVUS. COMMENT: [facility] #[id number] CLINICAL INFORMATION: NEOPLASM OF UNCERTAIN BEHAVIOR OF [...] in one cassette. Dictated by Annie SWEET ([facility]) MICROSCOPIC DESCRIPTION: A&B) Slides reviewed. Electronically Signed by Pathology Report verified by [facility] Electronically signed by HERNESTO BEE MD Sign out Date: 08/21/2018 16:19 Performing Lab: [facility], [address] [place] [address] Comment: Performed By: #### SPFR #### [place] [address] xr spine lumbar 2 views on 2018-06-22 XR SPINE ORIGINAL Normal 06-22-2018 [facility] LUMBAR 2 VIEWS XR SPINE LUMBAR 2 VIEWS [facility] [place] ([place]) ([id number]) CLINICAL STATEMENT: ddd COMPARISON: None FINDINGS:5 lumbar [...] Usha Chatman MD Preliminary Report By: Usha Chtaman MD Electronically Signed By: Usha Chatman MD Dictated Date: 06/22/2018 12:43:15 PM Prelim Date: 06/22/2018 12:43:15 PM Sign Date: 06/22/2018 12:43:55 PM No panel information on 2010-03-19 Cholesterol [Mass/Vol] OPERATIVE PROCEDURE: 03-19-2010 [facility] Lap shadi (01249) CLINICAL INFORMATION: Cholelithiasis Cholesterol [Mass/Vol] FINAL DIAGNOSIS: 03-19-2010 [facility] GALLBLADDER, CHOLECYSTECTOMY - VERY MILD CHRONIC CHOLECYSTIT IS. ([id number]) SPECIMEN: GALLBLADDER CONVERTED ELECTRONIC KAIA DURHAM M.D., PATHOLOGIST 03-19-2010 [facility] SIGNATURE (Electronic signature on file) ([id number]) Final Signed Out: 03/19/2010 15:16 CONVERTED GROSS GROSS DESCRIPTION: 03-19 [facility] DESCRIPTION Gallbladder (06886 ) The specimen is received in a [...] of the wall averages 0.1 cm. A construction representative sample of the gallbladder is valdivia bmitted in a single cassette. SDS/SMS/gpl MICROSCOPIC DESCRIPTION: Slides reviewed. EDS/gpl CONVERTED ORDERING Ordering Provider: HERNESTO 03-19-2010 [facility] PROVIDER GEGE ([id number]) Vital Signs Vital Sign Description Value / Unit Date Location The following section is limited to 5 en tries per type and includes entries from the following time range: 20200720 - 20200709 2. Body weight 67.13 kg 07-20-2020 [facility] ([id number]) BP Diastolic 60 mm[Hg] 07-20-2020 [facility] ([id number]) BP Systolic 100 mm[Hg] 07-20-2020 [facility] ([id number]) Encounters Date Type Reason Provider Location 07-20-2020 - Patient encounter Heavy episode of Lawanda (Cnm) OB/G ynecology 07-20-2020 procedure vaginal bleeding [facility] Comment: Episode of heavy vaginal ble eding (Primary Dx) 11-09-2018 - Patient encounter [facility] [employer] Ignacio Bryant 11-09-[address]EMPLOYEE [facility] ([id number]) 11-08-2018 - Patient encounter CHARLIE Bryant 11-08-2018 procedure DIEGO CHARLIE CORTEZ [facility] ([id number]) 09-10-2018 - Patient encounter FALGUNINOE EASTMANJOSÉ MIGUELT [facility] 09-11-2018 procedure PATEL Sanchez (0000 0) 09-03-2018 - Patient encounter FALGUNI NEASHLIET [facility] 09-04-2018 procedure PATEL Sanchez (0000 0) 03-18-2010 - Patient encounter Hernesto Wu [facility] 03-18-2010 procedure 03-18-2010 Results Only Hernesto Wu [facility] Procedures Procedure Name Date Provider Location CONVERTED SURGICAL PATHOLOGY 03-18-2010 Hernesto Villanueva [facility] ([id number]) Plan of Treatment Plan Description Date Location HPV TESTING HPV TESTING 09-10-2023 - [facility] 09-10-2023 ([id number]) PAP TESTING PAP TESTING 09-10-2023 - [facility] 09-10-2023 ([id number]) INFLUENZA (#1) INFLUENZA (#1) 2020 - [facility] 06-09-2020 ([id number]) DTAP,TDAP,TD (1 - Tdap) DTAP,TDAP,TD (1 - Tdap) 2002 - [facility] 2002 ([id number]) HEPATITIS C SCREENING HEPATITIS C SCREENING 2001 [facility] 2001 ([id number]) HIV SCREENING HIV SCREENING 2001 - [facility] 2001 ([id number]) HCG QUANTITATIVE HCG QUANTITATIVE Lab 07-20-2021 [facility] Routine Episode of heavy ([id number]) vaginal bleeding 1 Occurrences starting 07/20/2020 until 07/20/2021 Comment: 1 Occurrences starting 07/20 until 07/20/2021 HCG QUANTITATIVE HCG QUANTITATIVE Lab Routine Primary [facility] ([id number]) amenorrhea 07/20/2020 3:31 PM EDT Immunizations Vaccine Notes Status Date Location Influenza Vaccine, influenza virus (completed) 10-19-2012 [facility] Split-Non Spec vaccine, unspecified (4419 5) formulation Payers Payer Name Policy Number Location [facility] [id number] [facility] ([id number] [phone]) [facility] [id number] [facility] ([phone]) The following information is from the original human readable contentNo Payer Records FoundNo Payer Records FoundNo Payer Records FoundNo Payer Records FoundNo Payer Records FoundNo Payer Records FoundNo Payer Records Found Social History Type Social History Description Date Locat ion Tobacco smoking status Unknown if ever smoked [facility] ([id number]) [facility] Sex Assigned At Not on file [facility] ([id number]) Tobacco smoking status Former smoker 07-20-2020 [facility] ([id number]) [place] Tobacco use and exposure Never used 07-20-2020 [facility] ([id number]) Alcohol intake Current non-drinker of 07-20-2020 [facility] ([id number]) alcohol (finding) Exposure to SARS-CoV-2 Not sure [facility] ([id number]) (event) The following information is from the [...] BE BASED ON THE PRIMARY CLINICAL RECORDS. [facility] provides no warranty or guarantee of the accuracy or completeness of information in this document. UNRECOGNIZED CONTENT PROVIDED BELOW FOR UNRECOGNIZED SECTION INFORMATION SOURCE DATE CREATED AUTHOR AUTHOR'S ORGANIZATIO N 09/21/2018 [facility] DATE CREATED AUTHOR AUTHOR'S ORGANIZATIO N 11/26/2018 [facility] DATE CREATED AUTHOR AUTHOR'S ORGANIZATIO N 11/27/2018 [facility] Ref erence Lab DATE CREATED AUTHOR AUTHOR'S ORGANIZATIO N 06/20/2019 [facility] Found ation ([place]) UNRECOGNIZED CONTENT PROVIDED BELOW FOR UNRECOGNIZED SECTION No Status Records Found UNRECOGNIZED CONTENT PROVIDED BELOW FOR UNRECOGNIZED SECTION Source Comments In the event this information is protected by the Federal Confidentiality of Alcohol and Drug Abuse Patient Records regulations: The Federal rules restrict any use of the information to criminally investigate or prosecute any alcohol or drug abuse patient.[facility] the event this information is protected by the Federal Confidentiality of Alcohol and Drug Abuse Patient Records regulations: The Federal rules restrict any use of the information to criminally investigate or prosecute any alcohol or drug abuse patient.[facility] UNRECOGNIZED CONTENT PROVIDED BELOW FOR UNRECOGNIZED SECTION Reason for Visit Reason Comments Abdominal Pain bloating, back pain
== END 2020-02-14 16:00 | disposition home or self-care (01) ==
LOC: ED 15:53
PROVIDERS: Emergency Provider Emergency Medicine; PCP Preventive Medicine Occupational Medicine
DX: M54.6 Pain in thoracic spine (principal); G89.29 Other chronic pain; M51.36 Other intervertebral disc degeneration, lumbar region; F41.9 Anxiety disorder, unspecified; Z79.899 Other long term (current) drug therapy; Z72.0 Tobacco use
CPT/HCPCS: 99282

== ENCOUNTER 2020-03-15 20:49 | Emergency (ER) | payer OTHER, MEDICAID, SELFPAY ==
[2020-03-15 20:50] VITALS: BP 102/68; PULSE 120; RESP 18; TEMP 37.2; O2SAT 99; BMI 21.6
--- NOTE | 2020-03-15 21:00 | ED.VIS.GEN ---
History of Present Illness Chief Complaint: Back Informant: Patient Onset: Today Narrative: Patient has history of chronic back pain. She had L5-S1 discectomy in the past. She states that she has had an MRI in the past couple months (it was actually in September and the results were reviewed). She states that today she began to have some low back pain try to take a nap when she woke up felt like the back was more in spasm. She notes that it is in the bilateral low back extending down towards the buttocks. No fevers or rashes. No IV drug use. Oars report was reviewed. Past Medical History - Allergies and Home Meds Allergies/Adverse Reactions: Allergies adhesive Allergy (Verified 03/15/20 20:49) Rash erythromycin base [Erythromycin Base] Allergy (Verified 03/15/20 20:49) Hives estradiol Allergy (Verified 03/15/20 20:49) Anaphylaxis Penicillins [PCN] Allergy (Verified 03/15/20 20:49) Anaphylaxis acetaminophen [From Tylenol] Adverse Reaction (Verified 03/15/20 20:49) Vomiting ferrous sulfate Adverse Reaction (Verified 03/15/20 20:49) Other Primary Care Physician: Blaise Wetzel DO [Primary Care Provider] - Surgical History: cholecystectomy Smoking Status: Light Smoker (<10/day) Review of Systems General: Denies: Chills, Fever, Sweats Eyes: Denies: Visual changes - bilaterally, Diplopia ENT: Denies: Rhinorrhea, Sore throat Cardiovascular: Denies: Chest pain, Palpitations Respiratory: Denies: Dyspnea, Cough, Dyspnea on exertion Gastrointestinal: Denies: Abdominal pain, Nausea, Vomiting, Diarrhea, Melena, Hematochezia Genitourinary: Denies: Dysuria, Hematuria, Frequency Musculoskeletal: Reports: Back pain. Denies: Extremity Pain Skin: Denies: Rash, Wounds Neurological: Denies: Headache, Weakness, Numbness Physical Exam Vital Signs/Narrative: Vital Signs Temp Pulse Resp BP Pulse Ox 03/15/20 20:50 99.0 F 120 H 18 102/68 99 Inital Vital Signs reviewed: Yes General: Well nourished, Well developed, No Acute Distress Head: Normocephalic, Atraumatic Eyes: Perrl, EOMI ENT: Moist mucous membranes, No rhinorrhea Neck: Supple, Nontender Cardiovascular: Regular rate, Regular rhythm, No murmurs Respiratory: No distress, CTA bilaterally, Chest nontender Abdomen: Soft, Nontender, Nondistended, Normal bowel sounds Back: - - Patient is leaning onto her hands onto the bed. She complains of tenderness to palpation in lumbar paraspinal musculature. Neurologically she appears intact. Extremities: Nontender, No edema Skin: Normal color, No rash Neurological: Alert, Oriented x3, Cranial nerves II-XII grossly intact, Normal Strength, Normal Sensation, Normal DTR. Negative for: Normal Gait - Antalgic gait Psychological: Normal affect, Normal Mood Diagnostic/Tx/Re-eval - Medical Decision Making Patient received a dose of IM Toradol and p.o. Valium. She will be discharged home on Toradol and Valium. I have asked that she follow-up with primary care. Again this is acute on chronic issue for her. Suggest did to her that she developed a plan for when she has her flares with her doctors to avoid ED visits. This is her fourth ED visit this year for the same. ED Disposition - Plan for ED Patient: Disposition: Home or Assisted Living Diagnosis: Lumbar paraspinal muscle spasm Instructions: ED Spasm Back No Trauma Prescriptions: Ketorolac [Toradol] 10 mg PO Q8H PRN #15 tab PRN Reason: pain Transmission Status: Pending to [facility] Diazepam [Valium] 5 mg PO TID PRN #15 tablet PRN Reason: Muscle Spasm Transmission Status: Received by [facility]AMBR[facility] [facility] Referrals: Blaise Wetzel DO [Primary Care Provider] - 3-5 Days if not improving
[2020-03-15] MEDS: Ketorolac 60 MG/2 ML Vial IM (21:05)
[2020-03-15] MEDS: diazePAM 5 MG Tablet PO (21:05)
--- OUTSIDE RECORDS SUMMARY | 2020-07-26 09:22 | XMS RPT_ITS | CCD ---
:1985 External Reference #:[id number] Author Organization [facility] Care Team Providers Name Role Phone KEE CORTEZ Admitting Unavailable KEE CORTEZ Attending Unavailable KEE CORTEZ Primary Care Unavailable EMPLOYEE Admitting Unavailable EMPLOYEE Attending Unavailable EMPLOYEE Primary Care Unavailable Alan Crowe Primary Care Provider Jordon Wetzel Primary Care Provider Allergies Reported Allergen Reaction(s) Severity Date of Onset Location Acetaminophen Vomiting 04-15-2008 - [facility] ([id number]) HYDROmorphone Other: See Comments 04-15-2008 - [facility] ([id number]) Penicillins Hives 04-15-2008 - [facility] ([id number]) Medications Medication Name Sig Date Prescriber Location Baclofen BACLOFEN ORAL Take by [facility] Provider [facility] ([id number]) mouth. 0 Active BACLOFEN ORAL Take by mouth. 0 Active [facility] Provid er [facility] (70540) Comment: Take by mouth. clonazePAM clonazePAM (KLONOPIN) 1 mg tablet [facility] Pro vider [facility] ([id number]) Take 1 mg by mouth twice daily as needed. 0 Active Comment: Take 1 mg by mouth twice keily ly as needed. Problems Active Problems Category Problem Name Status Date Location Abdominal pain Pain in female pelvis Active [facility] ([id number]) Other bone disease and Somatic dysfunction Active 02-25-2013 - [facility] musculoskeletal of thoracic region (76943 ) deformities Other bone disease and Somatic dysfunction Active 02-25-2013 - [facility] musculoskeletal of lumbar region (70742) deformities Other female genital Heavy episode of Active [facility] disorders vaginal bleeding (29299) Ovarian cyst Cyst of right ovary Active [facility] (65839) Past or Other Problems Category Problem Name Status Date Location Spondylosis; intervertebral Backache Completed 02-25-2013 - [facility] disc disorders; other back ( 50607) problems Results Result Name Value Range Unit Interpretation Flag Date Location progress on 2020-07 PROGRESS HNO ID: [id number] Normal 07-22-2020 [facility] Author: Lakeisha Sanchez ([id number]) Service: ? Author Type: Physician Type: Progress Notes Filed: 07/22/2020 5:16 PM Note Text: Carolina Monteiro is a 35 year old female [facility] onset of RLQ pain.. HPI: 35-year-old female was seen in the office 2 days ago fo r onset of bleeding and cramping and right lower quadrant pain in the m iddle of the afternoon on 07/20/2020. She states the pain is continued. I s not alleviated with ibuprofen. She is also having some bleeding. She had 1 shot of Depo-Provera in February. She has had menses the last 2 m onths. They are light, not really heavy. She does not generally have a l ot of menstrual cramping. She denies being sexually active. She de nies fevers or chills. She denies abnormal vaginal discharge, itching or burning. She denies doing any unusual activities before the pain star avel. It makes it difficult to stand up. Changing positions, using heat or ice or pressure does not alleviate it. It sometimes gets worse in i ntensity and then decreases again. The pain radiates around to her back a nd down into her leg slightly. After she left her evaluation here on 07/20/2020, that night she went to the emergency room and had a pelvic ultrasound. Patient has a history of ovarian cysts and had surgery for a n appendicitis and possible ovarian cyst when she was a teenager. Her appen gina was removed at that time per her report. Patient denies any melena or hematochezia, constipation or d iarrhea. She denies that the pain gets better or worse before or after a bowel movement. She denies that the pain gets better or worse with urination. She denies any hematuria or dysuria. PAST MEDICAL HISTORY Diagnosis Date - Anxiety - DDD (degenerative disc disease), lumbar PAST SURGICAL HISTORY Procedure Laterality Date - APPENDECTOMY - CHOLECYSTECTOMY 2010 - ERCP 2010 stent placed - PAST SURGICAL HISTORY OF 1992 surgery on nasal septum - PAST SURGICAL HISTORY OF 1996 lumpectomy on left breast - PAST SURGICAL HISTORY OF 2006 bulging disc repair - REMOVAL ADENOIDS,PRIMARY,<12 Y/O - REMOVAL OF OVARIAN CYST(S) FAMILY HISTORY Problem Relation Age of Onset - None Mother - Hypertension Father - other (hypercholestermia) Father - Cancer Maternal Grandmother - Heart Maternal Grandfather Social History Tobacco Use - Smoking status: Former Smoker - Smokeless tobacco: Never Used Substance Use Topics - Alcohol use: No - Drug use: No Current Outpatient Medications Medication Sig - clonazePAM (KLONOPIN) 1 mg tablet Take 1 mg by mouth twice daily as needed. - BACLOFEN ORAL Take by mouth. No current facility-administered medications for this visit. Allergies As of Date: 07/22/2020 Allergen Noted Reaction DILAUDID [HYDROMORPHONE (BULK)] 04/15/2008 Other: See Commen ts PENICILLINS 04/15/2008 Hives TYLENOL [ACETAMINOPHEN] 04/15/2008 Vomiting Fully Assessed 07/20/2020 REVIEW OF SYSTEMS See above allergies and current medication updated:Yes EXAM: LMP 07/20/2020 GENERAL: pleasant, female in no apparent distress, patient i s sitting in the chair leaning over slightly. Patient declines pelvic or abdominal exam stating it will ma ke the pain worse and she had this performed in the emergency room. Emergency room records are reviewed. Patient's had a negativ e hCG. Urinalysis was negative except for small amount of blood. Pelvic ultrasound was reviewed and there was a 3.7 cm simple right ovarian cyst. Normal blood flow to both ovaries. Otherwise normal-ap pearing uterus and pelvis. ASSESSMENT AND PLAN: Pelvic pain, nonspecific source, uncertain if it is related to the simple ovarian cyst. We we discussed physiologic all ovarian follic les and that this is a normal finding. No evidence of hemorrhagic cyst or torsion. Discussed with the patient that I would recommend symptomati c treatment until the symptoms resolve. If she gets a fever, diarrhea or other other GI symptoms would likely need evaluation for those. She decl ined pelvic exam today so I am unable to ascertain whether the pain seem s to be more abdominal wall, ovarian, or uterine or pelvic floor in origi n. Discussed with her this ovarian follicle does not require follow-up ul trasound and is not worrisome for malignancy. Recommend NSAIDs alternatin g with Tylenol as needed. Patient has prescriptions from her PCP fo r back pain. Discussed with her she could use the muscle relaxer previous ly prescribed if needed to help with pain as well. Discussed with her we d o not treat pelvic pain with narcotic medications. Recommend schedule fo r annual and Pap. Lakeisha Clark MD cnov on 2020-07-22 CNOV Office Visit (OBGYWM) Normal 07-22-20 [place] Jyothi MONTEIROJORGECAROLINA L ([id number]) 1985 [facility] Date Time Provider Department ([id number]) 07/22/20 11:00 AM LAKEISHA CLARK OBGYWM During your visit today, we recorded the following informati on about you: Blood pressure Weight Last Period 66.7 kg 07/20/20 Lakeisha Clark MD 07/22/2020 5:16 PM Signed Carolina Rojas Slick is a 35 year old female who presents for problem visit for acute onset of RLQ pain.. HPI: 35-year-old female was seen in the office 2 days ago for onset of bleeding and cramping and right lower quadrant pain in the midd le of the afternoon on 07/20/2020. She states the pain is continued. Is not allevia avel with ibuprofen. She is also having some bleeding. She had 1 sreekanth t of Depo-Provera in February. She has had menses the last 2 months. They are light , not really heavy. She does not generally have a lot of menstrual crampi ng. She denies being sexually active. She denies fevers or chills. She salima es abnormal vaginal discharge, itching or burning. S he denies doing any unusual activities before the pain started. It makes it difficult to stand up. Changing positions, using heat or ice or pressure does not margarette viate it. It sometimes gets worse in intensity and then decreases again . The pain radiates around to her back and down into her leg slightly. After she left her evaluation here on 07/20/2020, that night she went to the emergency room and had a pelvic ultrasound. Patient has a history of ovarian cysts a nd had surgery for an appendicitis and possible ovarian cyst when she was a teenager. Her appendix was removed at that time per her report. Patient denies any melena or hematochezia, constipation or d iarrhea. She denies that the pain gets better or worse before or after a bowel movement. She denies that the pain gets better or worse with uri nation. She denies any hematuria or dysuria. PAST MEDICAL HISTORY Diagnosis Date - Anxiety - DDD (degenerative disc disease), lumbar PAST SURGICAL HISTORY Procedure Laterality Date - APPENDECTOMY - CHOLECYSTECTOMY 2010 - ERCP 2010 stent placed - PAST SURGICAL HISTORY OF 1992 surgery on nasal septum - PAST SURGICAL HISTORY OF 1996 lumpectomy on left breast - PAST SURGICAL HISTORY OF 2006 bulging disc repair - REMOVAL ADENOIDS,PRIMARY,<12 Y/O - REMOVAL OF OVARIAN CYST(S) FAMILY HISTORY Problem Relation Age of Onset - None Mother - Hypertension Father - other (hypercholestermia) Father - Cancer Maternal Grandmother - Heart Maternal Grandfather Social History Tobacco Use - Smoking status: Former Smoker - Smokeless tobacco: Never Used Substance Use Topics - Alcohol use: No - Drug use: No Current Outpatient Medications Medication Sig - clonazePAM (KLONOPIN) 1 mg tablet Take 1 mg by mouth twice daily as needed. - BACLOFEN ORAL Take by mouth. No current facility-administered medications for this visit. Allergies As of Date: 07/22/2020 Allergen Noted Reaction DILAUDID [HYDROMORPHONE (BULK)] 04/15/2008 Other: See Commen ts PENICILLINS 04/15/2008 Hives TYLENOL [ACETAMINOPHEN] 04/15/2008 Vomiting Fully Assessed 07/20/2020 REVIEW OF SYSTEMS See above allergies and current medication updated:Yes EXAM: LMP 07/20/2020 GENERAL: pleasant, female in no apparent distress, pat ient is sitting in the chair leaning over slightly. Patient declines pelvic or abdominal exam statin g it will make the pain worse and she had this performed in the emergency room. Emergency room records are reviewed. Patient's h ad a negative hCG. Urinalysis was negative except for small amount of blood. Pelvic ultrasound was reviewed and there was a 3.7 cm simple right ovarian cyst. Normal blood flow to both ovaries. Otherwise normal-ap pearing uterus and pelvis. ASSESSMENT AND PLAN: Pelvic pain, nonspecific source, uncertain if it is related to the simple ovarian cyst. We we discussed physiologic all ov brandi follicles and that this is a normal finding. No evidence of hemorrhagic cyst or tors ion. Discussed with the patient that I would recommend symptomatic treatmen t until the symptoms resolve. If she gets a fever, diarrhea or other oth er GI symptoms would likely need evaluation for those. She declined pelvic exam today so I am unable to ascertain whether the pain see ms to be more abdominal wall, ovarian, or uterine or pelvic floor in origin. Di scussed with her this ovarian follicle does not require follow-up ultrasound and is not worrisome f or malignancy. Recommend NSAIDs alternating with Tyleno l as needed. Patient has prescriptions from her PCP for back pain. Discussed with her she could use the muscle relaxer previously prescribed if needed to help with p ain as well. Discussed with her we do not treat pelvic pain with narcotic medicatio ns. Recommend schedule for annual and Pap. Lakeisha Clark MD Referring Provider: SELF [200] Allergies As of Date: 07/22/2020 Noted Allergy Reaction DILAUDID (HYDROMORPHONE (BULK)) 04/15/2008 14 - Other: See Cindy govea Comments: Had mental status change from pancreatitis PENICILLINS 04/15/2008 4 - Hives TYLENOL (ACETAMINOPHEN) 04/15/2008 11 - Vomiting Date Reviewed: 07/22/2020 Reviewed by: Lakeisha Clark - Fully Assessed Reason for Visit: Pelvic Pain [282] Primary Visit Diagnosis:Pelvic pain in female [R10.2] Other Visit Diagnosis:Ovarian cyst, right [N83.201] Prescriptions as of 07/22/2020 Sig: CLONAZEPAM 1 MG TABLET Take 1 mg by mouth twice gabbi* BACLOFEN ORAL Take by mouth. Problem List As Of Date 07/22/2020 Noted Resolved Somatic dysfunction of spine, thoracic [M99.02] 02/25/2013 Somatic dysfunction of lumbar region [M99.03] 02/25/2013 Back pain [M54.9] 02/25/2013 Encounter Status:Closed by LAKEISHA CLARK MD on 07/22/20 progress on 2020-07 PROGRESS HNO ID: [id number] Normal 07-20-2020 [facility] Author: Lawanda (Cnm) Taz [place] ([id number]) Service: ? Author Type: [employer] Type: Progress Notes Filed: 07/20/2020 3:35 PM Note Text: Carolina Monteiro is a 35 year old female who presents for marbin humphrey visit of cramping and vaginal bleeding starting today at 1 pm. Leena murguia works a [employer]. HPI: Patient stopped Depo-Provera shot in April 2020. Had spo tting approximately 1 month ago for a couple of days. Patient assu med this was her period. Today began cramping and bleeding heavy to the p oint that she needed to leave work to change scrubs. Denies passing any cl ots. Has not taken any medication for pain. Has history of ovarian cysts and unsure if that is what is causing pain. Not currently sexually active. Last intercourse was on 05/08/20. Has not taken any control since Depo injection and does not desire control due to effects o n mood that patient experiences. PAST MEDICAL HISTORY Diagnosis Date - Anxiety - DDD (degenerative disc disease), lumbar PAST SURGICAL HISTORY Procedure Laterality Date - APPENDECTOMY - CHOLECYSTECTOMY 2010 - ERCP 2010 stent placed - PAST SURGICAL HISTORY OF 1992 surgery on nasal septum - PAST SURGICAL HISTORY OF 1996 lumpectomy on left breast - PAST SURGICAL HISTORY OF 2006 bulging disc repair - REMOVAL ADENOIDS,PRIMARY,<12 Y/O - REMOVAL OF OVARIAN CYST(S) FAMILY HISTORY Problem Relation Age of Onset - None Mother - Hypertension Father - other (hypercholestermia) Father - Cancer Maternal Grandmother - Heart Maternal Grandfather Social History Tobacco Use - Smoking status: Former Smoker - Smokeless tobacco: Never Used Substance Use Topics - Alcohol use: No - Drug use: No Current Outpatient Medications Medication Sig - clonazePAM (KLONOPIN) 1 mg tablet Take 1 mg by mouth twice daily as needed. - BACLOFEN ORAL Take by mouth. No current facility-administered medications for this visit. Allergies As of Date: 07/20/2020 Allergen Noted Reaction DILAUDID [HYDROMORPHONE (BULK)] 04/15/2008 Other: See Commen ts PENICILLINS 04/15/2008 Hives TYLENOL [ACETAMINOPHEN] 04/15/2008 Vomiting Fully Assessed 07/20/2020 REVIEW OF SYSTEMS Abdomen: Positive for bloating today, no early satiety, marisa gestion, or increased flatulence. No nausea, vomiting, diarrhea, or cons tipation. Positive for abdominal pain (cramping) Bladder: No dysuria, gross hematuria, urinary frequency, uri nary urgency, or incontinence. Expanded ROS: N/A Allergies [...] heavy vaginal bleeding - ICD9: 626.9, ICD10: N 93.9 Suspect this is regular period and body regulating self afte r stopping Depo injection - HCG QUANTITATIVE - HCG QUANTITATIVE Patient is unable to give urine sample for HCG. Will collect serial levels at this time. Will notify patient of results Discussed starting Ibuprofen 800 mg PO every 8 hours until of period Patient agrees with plan of care RTO- PRN Lawanda Ambrosio APRN.CNM PROGRESS HNO ID: [id number] Normal 07-20-2020 [facility] Author: Reno (Suki) Aminata [place] ([id number]) Service: ? Author Type: Nurse Practitioner Type: Progress Notes Filed: 07/20/2020 2:43 PM Note Text: Nontoxic-appearing female presents urgent care with concerns of heavy bleeding abdominal pain. Patient states she is currently on the Depakote shot and is concerned that she is having a miscarriage. Emelia ent states she has had a large amount of bleeding with mucousy clots to day. Patient states abdominal pain and back pain x today. With patient's chief complaint patient will be sent to [facility] for further evaluat ion. Appointment today was made. Patient agreed with plan of care . hcg, quantitative bl on 2020-07-20 HCG, Quantitative Bl <0.6 <5.0 Normal 0 [facility] ([id number]) Comment: Result Comment: NEGATIVE Performed By: #### HCGQT ### # [facility] [address] [place], [place] [address] cnov on 2020-07-20 CNOV Office Visit (OBGYWM) Normal 07-20-20 [place] Jyothi CAROLINA MONTEIRO ([id number]) 1985 F [place] Date Time Provider Department ([id number]) 07/20/20 2:45 PM LAWANDA AMBROSIO ([facility]) OBGYWM During your visit today, we recorded the following informati on about you: Blood pressure Weight Last Period 100/60 67.1 kg 07/20/20 Lawanda Ambrosio APRN.RACHID 07/20/2020 3:35 PM Signed Carolina Rojas Slick is a 35 year old female who presents for problem visit of cramping and vaginal bleeding starting today at 1 pm. Agus berry works a [employer]. HPI: Patient stopped Depo-Pr overa shot in April 2020. Had spotting approximately 1 month ago for a couple of days. Patient assumed this was her period. Today began cramping and bleeding heavy to the point that she needed to leave work to change scrubs. Denies passin g any clots. Has not taken any medication for pain. Has history of ovarian cysts and unsure if that is wha t is causing pain. Not currently sexually active. Last intercourse was on 05/08/20. Has not taken any control since Depo injection and does not desire bir th control due to effects on mood that patient experiences. PAST MEDICAL HISTORY Diagnosis Date - Anxiety - DDD (degenerative disc disease), lumbar PAST SURGICAL HISTORY Procedure Laterality Date - APPENDECTOMY - CHOLECYSTECTOMY 2010 - ERCP 2010 stent placed - PAST SURGICAL HISTORY OF 1992 surgery on nasal septum - PAST SURGICAL HISTORY OF 1996 lumpectomy on left breast - PAST SURGICAL HISTORY OF 2006 bulging disc repair - REMOVAL ADENOIDS,PRIMARY,<12 Y/O - REMOVAL OF OVARIAN CYST(S) FAMILY HISTORY Problem Relation Age of Onset - None Mother - Hypertension Father - other (hypercholestermia) Father - Cancer Maternal Grandmother - Heart Maternal Grandfather Social History Tobacco Use - Smoking status: Former Smoker - Smokeless tobacco: Never Used Substance Use Topics - Alcohol use: No - Drug use: No Current Outpatient Medications Medication Sig - clonazePAM (KLONOPIN) 1 mg tablet Take 1 mg by mouth twice daily as needed. - BACLOFEN ORAL Take by mouth. No current facility-administered medications for this visit. Allergies As of Date: 07/20/2020 Allergen Noted Reaction DILAUDID [HYDROMORPHONE (BULK)] 04/15/2008 Other: See Commen ts PENICILLINS 04/15/2008 Hives TYLENOL [ACETAMINOPHEN] 04/15/2008 Vomiting Fully Assessed 07/20/2020 REVIEW OF SYSTEMS Abdomen: Positive for bloating today, no early satiety, marisa gestion, or increased flatulence. No nausea, vomitin g, diarrhea, or constipation. Positive for abdominal pain (cramping) Bladder: No dysuria, gross hematuria, urinary frequenc y, urinary urgency, or incontinence. Expanded ROS: N/A [...] heavy vaginal bleeding - ICD9: 626.9, ICD10: N 93.9 Suspect this is regular period and body regulating self af ter stopping Depo injection - HCG QUANTITATIVE - HCG QUANTITATIVE Patient is unable to give urine sample for HCG. Will collect serial levels at this time. Will notify patient of results Discussed starting Ibuprofen 800 mg PO every 8 hours until e of period Patient agrees with plan of care RTO- PRN MOSES Olivia APRN.CNM 07/20/2020 3:17 PM Signed Start Ibuprofen 800 mg by mouth every 8 hours until complete with period. Referring Provider: SELF [200] Allergies As of Date: 07/20/2020 Noted Allergy Reaction DILAUDID (HYDROMORPHONE (BULK)) 04/15/2008 14 - Other: See C omments Comments: Had mental status change from pancreatitis PENICILLINS 04/15/2008 4 - Hives TYLENOL (ACETAMINOPHEN) 04/15/2008 11 - Vomiting Date Reviewed: 07/20/2020 Reviewed by: Lawanda Escobar) Taz - Fully Assessed Reason for Visit: Abdominal Pain [1] Cmt: bloating, back pain Primary Visit Diagnosis:Episode of heavy vaginal bleeding [N 93.9] Order(s):HCG QUANTITATIVE [SQHCGQT] Order #: [id number] FUTU RE HCG QUANTITATIVE [SQHCGQT] Order #: [id number] FUTURE Prescriptions as of 07/20/2020 Sig: CLONAZEPAM 1 MG TABLET Take 1 mg by mouth twice gabbi* BACLOFEN ORAL Take by mouth. Problem List As Of Date 07/20/2020 Noted Resolved Somatic dysfunction of spine, thoracic [M99.02] 02/25/2013 Somatic dysfunction of lumbar region [M99.03] 02/25/2013 Back pain [M54.9] 02/25/2013 Other instructions from your clinician: Start Ibuprofen 800 mg by mouth every 8 hours until complete with period. Disposition: Return if symptoms worsen or fail to improve. Follow-up and Disposition History Recorded Encounter Status:Closed by LAWANDA AMBROSIO APRN.CNM on 07/09 11/28 CN Office Visit (UCWSTR) Normal 07-20-[address] [place] [address] CAROLINA Zuluaga ([id number]) 1985 [facility] Time Provider Department ([id number]) 07/20/20 2:30 PM REON COATES (SUKI) WSTR During your visit today, we recorded the following informati on about you: Reno Coates APRN.CNP 07/20/2020 2:43 PM Signed Nontoxic-appearing female presents urgen t care with concerns of heavy bleeding abdominal pain. Patient states she is currently on the Dep akote shot and is concerned that she is having a miscarria ge. Patient states she has had a large amount of bleeding with mucousy clots to day. Patient states abdominal pain and back pain x today. With patient's chief complaint patient wi ll be sent to [facility] for further evaluation. Appointment today was made. Marbin rosales agreed with plan of care. Referring Provider: SELF [200] Allergies As of Date: 07/20/2020 Noted Allergy Reaction DILAUDID (HYDROMORPHONE (BULK)) 04/15/2008 14 - Other: See C omments Comments: Had mental status change from pancreatitis PENICILLINS 04/15/2008 4 - Hives TYLENOL (ACETAMINOPHEN) 04/15/2008 11 - Vomiting Date Reviewed: 09/10/2018 Reviewed by: Ricarda Lang Ma - Fully Assessed Primary Visit Diagnosis:Procedure not carried out [Z53.9] Prescriptions as of 07/20/2020 Sig: BACLOFEN ORAL Take by mouth. Problem List As Of Date 07/20/2020 Noted Resolved Somatic dysfunction of spine, thoracic [M99.02] 02/25/2013 Somatic dysfunction of lumbar region [M99.03] 02/25/2013 Back pain [M54.9] 02/25/2013 Encounter Status:Closed by AMINATA DAWKINS.RENO COHN on 1 nicotine/cotinine, serum [ccl] on 2018-11-13 NICOTINE/COTININE, SERUM [CCL] Normal 11-13-2018 [facility] ( [id number]) Comment: Result Comment: _NICOTINE/CO TININE, SERUM [CCL]_ NICOTINE/COTININE, SERUM [CC L] Reported: 11/13/2018 12:06 S tatus=F TEST RESULT FLAG RANGE UNITS Nicotine <2 <2 ng/mL 9.1208.rfl.COMPLETE.ATLR Cotinine <2 <2 ng/mL 1208.rfl.COMPLETE.ATLR Nornicotine Absent [...] developed and its performance characteristics determined by [facility]. It has not been cleared or approved by the FDA. [facility] is authorized under CLIA to perform high-complexity test ing. This test is used for clinical purposes. It should not be r egarded as investigational or for research. [facility] [address] [place] [address] Mayra Forbes M.D. [id number] Performed By: #### [id number] ## ## [facility],[address] [place] [id number] nicotine/cotinine o n 2018-11-13 Nicotine <2 <2 Normal 11-13-2018 [facility] ([id number]) Comment: Performed By: #### MEASLG, M UMPSG, RUBIGG #### [facility] Routine Lab [address] [address] #### NICOT #### [facility] Chemistry [address] [address] Nornicotine Absent Absent Normal 11-13-2018 [facility] ([id number]) Comment: Performed By: #### MEASLG, M UMPSG, RUBIGG #### [facility] Routine Lab [address] [address] #### NICOT #### [facility] Chemistry [address] [address] Trimethoprim+Sulfamethoxazole susc <2 <2 Addie l 11-13-2018 [facility] Reference Lab ([id number]) Comment: Performed By: #### MEASLG, M UMPSG, RUBIGG #### [facility] Routine Lab [address] [address] #### NICOT #### [facility] Chemistry [address] [address] rubella igg antibody on 2018-11-09 Rubella IgG Ab 3.96 Index Value Normal 11-09-2018 [facility] Reference Lab (40238) Comment: Performed By: #### MEASLG, M UMPSG, RUBIGG #### [facility] Routine Lab [address] [place], [place] [address] #### NICOT #### [facility] Chemistry [address] [address] Rubella IgG Ab, Qual Positive Negative Abnormal 9 [facility] Reference Lab ([id number]) Comment: Performed By: #### MEASLG, M UMPSG, RUBIGG #### [facility] Routine Lab [address] [phone] #### ANURAG #### [facility] Chemistry [address] [id number] rubella igg antibody [ccl] on 2018-11-09 RUBELLA IgG ANTIBODY [CCL] Normal [facility] ([id number]) Comment: Result Comment: _RUBELLA IGG ANTIBODY [CCL]_ RUBELLA IgG ANTIBODY [CCL] Reported: 11/09/2018 11:55 S tatus=F TEST RESULT FLAG RANGE UNITS Rubella IgG Ab, Qual Positiv e A NEGAT 11/09/18.1158.rfl.COMPLETE.ATLR Sample is considered positiv e for IgG antibodies to rubella virus. A positive result indicates previous exposure to Rubella virus or vaccination. Rubella IgG Ab 3.96 Index .8.rfl.COMPLETE.ATLR Value Index values are interpreted as follows: Negative specimens <0.90 Equivocol specimens 0.90 to 0.99 Positive specimens >0.99 The magnitude of the measure d result is not indicative of the amount of antibody present. [facility] [address] [place] [address] Mayra Forbes M.D. [id number] Performed By: #### [id number] ## ## [facility],[address] [place], [place] [id number] mumps igg ab on 06-10-01 Mumps IgG Ab 113.0 AU/mL Normal 11-09-2018 [facility] Reference Lab ([id number]) Comment: Performed By: #### MEASLG, M UMPSG, RUBIGG #### [facility] Routine Lab [address] [place], [place] [address] #### NICOT #### [facility] Chemistry [address] [address] Mumps IgG, Qual Positive Negative Abnormal 11-09-2018 [facility] Reference Lab ([id number] ) Comment: Performed By: #### MEASLG, M UMPSG, RUBIGG #### [facility] Routine Lab [address] [address] #### NICOT #### [facility] Chemistry [address] [phone] mumps igg ab [ccl] on 2018-11-09 MUMPS IGG AB [CCL] Normal 11-09-2018 [facility] ([id number]) Comment: Result Comment: _MUMPS IGG A B [...] of the amount of antibody prese nt. [facility] [place] [address] Mayra Forbes M.D. [id number] Performed By: #### [id number] ## ## [facility] [place],[address] [place], [place] [id number] measles igg antibody on 2018-11-09 Measles IgG Ab, Qual Negative Abnormal 9 [facility] Reference Lab (56002) Comment: Result Comment: Positive Pre sence of detectable measles virus IgG antibodies. A positive result generally indicates exposure to measles virus or previous vaccination. Performed By: #### MEASLG, M UMPSG, RUBIGG #### [facility] Routine Lab [address] [address] #### NICOT #### [facility] Chemistry [address] [place] [phone] Measles IgG Antibody 33.9 AU/mL Normal 9 [facility] Reference Lab (17274) Comment: Performed By: #### MEASLG, M UMPSG, RUBIGG #### [facility] Routine Lab [facility] [address] #### NICOT #### [facility] Chemistry [address] [place] [phone] measles igg antibody [ccl] on 2018-11-09 MEASLES IGG ANTIBODY [CCL] Normal [facility] (80634) Comment: Result Comment: _MEASLES IGG ANTIBODY [CCL]_ [...] of the amount of antibody prese nt. [facility] [address] [place] [address] Mayra Forbes M.D. [id number] Performed By: #### [id number] ## ## [facility],[address] [place] [address] hepb surfaceab,quant on 2018-11-09 HepB SurfaceAb,Quant >1000.00 <8.00 High 9 [facility] Reference Lab (83291) Comment: Performed By: #### Marlon LOPEZ UMPSG, MARYCRUZ #### [facility] Routine Lab [address] [place] [phone] #### ANURAG #### [facility] Chemistry [address] [place], [place] [address] hep b surface ab, quant [ccl] on 2018-11-09 HEP B SURFACE AB, QUANT [CCL] Normal 11-09-2018 [facility] (35896) Comment: Result Comment: _HEP B SURFA CE AB, QUANT [CCL]_ HEP B SURFACE AB, QUANT [CCL ] Reported: 11/09/2018 11:55 S tatus=F TEST RESULT FLAG RANGE UNITS HepB SurfaceAb,Quant >1000.0 0 H <8.00 mIU/mL 11/09/18.1158.rfl.COMPLETE.ATLR [facility] [address] [place] [address] Mayra Forbes M.D. [id number] Performed By: #### [id number] ## ## [facility] [place],[address] [place], [place] [phone] lipid profile on 27-10-30 Cholesterol in HDL mass conc 70 40 - 60 mg/dl High 0 11-08-2018 [facility] ( 02196) Comment: Performed By: #### [id number] ## ## [facility],[address] [place] [address] Cholesterol in LDL mass 98 0 - 129 mg/dl Normal 2018 [facility] [place] ( [address]) Comment: Performed By: #### [id number] ## ## [facility],[address] [facility] [address] Cholesterol mass conc 185 0 - 200 mg/dl Normal 11-08-19 19 [facility] ( 14596) Comment: Performed By: #### [id number] ## ## [facility] [place],[address] [place] [address] Cholesterol.total/Cholesterol in HDL 2.6 0.0 - 5.0 Nor mal 11-08-2018 [facility] (95666) Comment: Performed By: #### [id number] ## ## [facility] [place],[address] [place] [address] Protein mass conc Normal 11-08-2018 [facility] (06758) Comment: Result Comment: LIPID PROFIL E Performed By: #### [id number] ## ## [facility] [place],[address] [place] [address] Triglyceride mass conc 84 0 - 150 mg/dl Normal 019 [facility] ( 71812) Comment: Performed By: #### [id number] ## ## [facility] [place],[address] [place] [address] glucose on Glucose mass conc 95 74 - 106 mg/dl Normal 11-08-2018 [facility] (72359) Comment: Performed By: #### [id number] ## ## [facility] [place],[address] [place] [address] drug screen urine medic on 2018-11-08 Amphetamines Ql (U) NEG Normal 11-08-2018 [facility] (06058) Comment: Performed By: #### [id number] ## ## [facility] [place],[address] [place] [address] B-DIAZEPINES NEG Normal 11-08-2018 [facility] (86534) Comment: Performed By: #### [id number] ## ## [facility] [place],[address] [facility] [address] BARBITURATES NEG Normal 11-08-2018 [facility] (24876) Comment: Performed By: #### [id number] ## ## [facility],[address] [facility] [address] Cocaine Ql (U) NEG Normal 11-08-2018 [facility] (05562) Comment: Performed By: #### [id number] ## ## [facility],[address] [facility] [address] DRUG SCREEN URINE MEDIC Normal 2018 [facility] (98037) Comment: Result Comment: DRUG SCREEN - URINE Performed By: #### [id number] ## ## [facility],[address] [facility] [address] Methadone Ql (U) NEG Normal 11-08-2018 [facility] (37943) Comment: Performed By: #### [id number] ## ## [facility],[address] [facility] [address] Opiates Ql (U) NEG Normal 11-08-2018 [facility] (41509) Comment: Performed By: #### [id number] ## ## [facility],[address] [facility] [address] PCP NEG Normal 11-08-2018 [facility] (90522) Comment: Performed By: #### [id number] ## ## [facility],[address] [facility] [address] TCA POS Normal 11-08-2018 [facility] (48222) Comment: Performed By: #### [id number] ## ## [facility] [place],[address] [place] [address] [place] [address] THC NEG Normal 11-08-2018 [facility] (58589) Comment: Result Comment: PATIENTS REC EIVING PROTON PUMP INHIBITORS MAY DEMONSTRATE FALSE POSITIVE THC/CANNABINOID RESULTS. AN ALTERNATIVE CONFIRMATORY METHOD SHOULD BE CONSIDERED TO VERIFY POSITIVE RESULTS. Performed By: #### [id number] ## ## [facility],[address] [place] [address] final surgical pathology report on 2018-08-21 Final Surgical . Normal 08-21-2018 [facility] Pathology Report Pathology Reports [facility] ([place]) Accession: Collected Date/Time: Received Date/Time: Patholog ist: ([id number]) [id number] 08/17/2018 15:08 EST 08/20/2018 09:09 EST MD HERNESTO DE LA CRUZ Final Surgical Pathology Report DIAGNOSIS: A) SKIN, LEFT LOWER LEG -- DERMATOFIBROMA. B) SKIN, RIGHT POSTERIOR THIGH -- INTRADERMAL NEVUS. COMMENT: [facility] #[id number] CLINICAL INFORMATION: NEOPLASM OF UNCERTAIN BEHAVIOR OF [...] in one cassette. Dictated by Annie SWEET ([facility]) MICROSCOPIC DESCRIPTION: A&B) Slides reviewed. Electronically Signed by Pathology Report verified by [facility] Electronically signed by HERNESTO BEE MD Sign out Date: 08/21/2018 16:19 Performing Lab: [facility], [address] [place] [address] Comment: Performed By: #### SPFR #### [address] [address] xr spine lumbar 2 views on 2018-06-22 XR SPINE ORIGINAL Normal 06-22-2018 [facility] LUMBAR 2 VIEWS XR SPINE LUMBAR 2 VIEWS [facility] ([place]) ([id number]) CLINICAL STATEMENT: ddd COMPARISON: None FINDINGS:5 lumbar [...] on 2010-03-19 Cholesterol [Mass/Vol] OPERATIVE PROCEDURE: 03-19-2010 [facility] Lap shadi (58964) CLINICAL INFORMATION: Cholelithiasis Cholesterol [Mass/Vol] FINAL DIAGNOSIS: 03-19-2010 [facility] GALLBLADDER, CHOLECYSTECTOMY - VERY MILD CHRONIC CHOLECYSTIT IS. (15077) SPECIMEN: GALLBLADDER CONVERTED ELECTRONIC KAIA DURHAM M.D., PATHOLOGIST 03-19-2010 [facility] SIGNATURE (Electronic signature on file) ([id number]) Final Signed Out: 03/19/2010 15:16 CONVERTED GROSS GROSS DESCRIPTION: 03-19 [facility] DESCRIPTION Gallbladder ([id number] ) The specimen is received in a [...] of the wall averages 0.1 cm. A equal opportunity representative sample of the gallbladder is richard bmitted in a single cassette. SDS/SMS/gpl MICROSCOPIC DESCRIPTION: Slides reviewed. EDS/gpl CONVERTED ORDERING Ordering Provider: HERNESTO 03-19-2010 [facility] PROVIDER GEGE ([id number]) Vital Signs Vital Sign Description Value / Unit Date Location The following section is limited to 5 en tries per type and includes entries from the following time range: 20200720 - 20200709 4. Body weight 66.68 kg 07-22-2020 [facility] (88939) Body weight 67.13 kg 07-20-2020 [facility] (07947) BP Diastolic 60 mm[Hg] 07-22-2020 [facility] (63278) BP Diastolic 60 mm[Hg] 07-20-2020 [facility] (40588) BP Systolic 98 mm[Hg] 07-22-2020 [facility] (37927) BP Systolic 100 mm[Hg] 07-20-2020 [facility] (22384) Encounters Date Type Reason Provider Location 07-22-2020 - Patient encounter Pain in female Lakeisha Clark OB/ Gynecology 07-22-2020 procedure pelvis Comment: Pelvic pain in female (Prima ry Dx); Ovarian cyst, right 07-20-2020 - Patient encounter Heavy episode of Lawanda (Cnm) OB/G ynecology 07-20-2020 procedure vaginal bleeding [place] Comment: Episode of heavy vaginal ble eding (Primary Dx) 11-09-2018 - Patient encounter HEALTH EMPLOYEE Ignacio Bryant 11-09-2018 procedure HEALTH EMPLOYEE [facility] EMPLOYEE (25563) 11-08-2018 - Patient encounter CHARLIE Bryant 11-08-2018 procedure DIEGO CORTEZ [facility] (79977) 03-18-2010 - Patient encounter Hernesto Wu [facility] 03-18-2010 procedure 03-18-2010 Results Only Hernesto Wu [facility] Procedures Procedure Name Date Provider Location CONVERTED SURGICAL PATHOLOGY 03-18-2010 Hernesto Peña n [facility] ([id number]) Plan of Treatment Plan Description Date Location HPV TESTING HPV TESTING 09-10-2023 - [facility] 09-10-2023 ([id number]) PAP TESTING PAP TESTING 09-10-2023 - [facility] 09-10-2023 (49178) INFLUENZA (#1) INFLUENZA (#1) 2020 - [facility] 06-09-2020 (41156) DTAP,TDAP,TD (1 - Tdap) DTAP,TDAP,TD (1 - Tdap) 2002 - [facility] 2002 (60216) HEPATITIS C SCREENING HEPATITIS C SCREENING 2001 - [facility] 2001 (70740) HIV SCREENING HIV SCREENING 2001 - [facility] 2001 (99049) HCG QUANTITATIVE HCG QUANTITATIVE Lab 07-20-2021 [facility] Routine Episode of heavy (95012) vaginal bleeding 1 Occurrences starting 07/20/2020 until 07/20/2021 Comment: 1 Occurrences starting 07/20 until 07/20/2021 HCG QUANTITATIVE HCG QUANTITATIVE Lab Routine Primary [facility] (81435) amenorrhea 07/20/2020 3:31 PM EDT Immunizations Vaccine Notes Status Date Location Influenza Vaccine, influenza virus (completed) 10-19-2012 - [facility] Split-Non Spec vaccine, unspecified 10-19-2012 (4419 5) formulation Payers Payer Name Policy Number Location [employer] [id number] [facility] ([id number]) [id number] ([id number]) The following information is from the original human readable contentNo Payer Records FoundNo Payer Records FoundNo Payer Records FoundNo Payer Records FoundNo Payer Records FoundNo Payer Records FoundNo Payer Records Found Social History Type Social History Date Location Description Tobacco smoking status Unknown if ever smoked [facility] (31085) Sex Assigned At Not on file [facility] (24944) [facility]165[facility] Tobacco use and Never used 07-20-2020 - [facility] exposure 07-22-2020 (98756) Alcohol intake Current non-drinker of 07-20-2020 [facility] [place] [facility] alcohol (finding) 07-22-2020 (85936) Exposure to SARS-CoV-2 Not sure [facility] (event) (01989) The following information is from the original [...] Advanced Directives Records Found Instructions Patient InstructionsLawanda Ambrosio) - 07/20/2020 3:17 PM EDTStart Ibuprofen 800 mg by mouth every 8 hours until complete with period. documented in this encounter History of Present Illness Lawanda Ambrosio) - 07/20/2020 2:54 PM EDT Carolina Monteiro [...] with plan of care RTO- PRN Lawanda Ambrosio APRN.CNM documented in this encounterLakeisha Clark - 07/22/2020 11:16 AM EDT Carolina Monteiro is a 35 year old female who presents for problem visit for acute onset of RLQ pain.. HPI: 35-year-old female was seen in the office 2 days ago for onset of bleeding and cramping and right lower quadrant pain in the middle of the afternoon on 07/20/2020. She states the pain is continued. Is not alleviated with ibuprofen. She is also having some bleeding. She had 1 shot of Depo-Provera in February. She has had menses the last 2 months. They are light, not really heavy. She does not generally have a lot of menstrual cramping. She denies being sexually active. She denies fevers or chills. She denies abnormal vaginal discharge, itching or burning. She denies doing any unusual activities before the pain started. It makes it difficult to stand up. Changing positions, using heat or ice or press ure does not alleviate it. It sometimes gets worse in intensity and then decreases again. The pain radiates around to her back and down into her leg slightly. After she left her evaluation here on 07/20/2020, that night she went to the emergency room and had a pelvic ultrasound. Patient has a history of ovarian cysts and had surgery for an appendicitis and possible ovarian cystwhen she was a teenager. Her appendix was removed at that time per her report. Patient denies any melena or hematochezia, constipation or diarrhea. She denies that the pain gets better or worse before or after a bowel movement. She denies that the pain gets better or worse with urination. She denies any hematuria or dysuria. PAST MEDICAL HISTORY Diagnosis Date ? Anxiety [...] for this visit. Allergies As of Date: 07/22/2020 Allergen Noted Reaction DILAUDID [HYDROMORPHONE (BULK)] 04/15/2008 Other: See Comments PENICILLINS 04/15/2008 Hives TYLENOL [ACETAMINOPHEN] 04/15/2008 Vomiting Fully Assessed 07/20/2020 REVIEW OF SYSTEMS See above allergies and current medication updated:Yes EXAM: LMP 07/20/2020 GENERAL: pleasant, female in no apparent distress, patient is sitting in the chair leaning over slightly. Patient declines pelvic or abdominal exam stating it will make the pain worse and she had this performed in the emergency room. Emergency room records are reviewed. Patient's had a negative hCG. Urinalysis was negative except for small amount of blood. Pelvic ultrasound was reviewed and there was a 3.7 cm simple right ovarian cyst. Normal blood flow to both ovaries. Otherwise normal-appearing uterus and pelvis. ASSESSMENT AND PLAN: Pelvic pain, nonspecific source, uncertain if it is related to the simple ovarian cyst. We we discussed physiologic all ovarian follicles and that this is a normal finding. No evidence of hemorrhagic cyst or torsion. Discussed with the patient that I would recommend symptomatic treatment until the symptoms resolve. If she gets a fever, diarrhea or other other GI symptoms would likely need evaluation for those. She declined pelvic exam today so I am unable to ascertain whether the pain seems to be more abdominal wall, ovarian, or uterine or pelvic floor in origin. Discussed with her this ovarian follicle does not require follow-up ultrasound and is not worrisome for malignancy. Recommend NSAIDs alternating with Tylenol as needed. Patient has prescriptions from her PCP for back pain. Discussed withher she could use the muscle relaxer previously prescribed if needed to help with pain as well. Discussed with her we do not treat pelvic pain with narcotic medications. Recommend schedule for annual and Pap. Lakeisha Clark MD documented in this encounter Assessments Diagnosis Episode of heavy vaginal bleeding - Prim josé miguel Diagnosis Pelvic pain in female - Primary Unspecified symptom associated with fema le genital organs Ovarian cyst, right Other and unspecified ovarian cyst Additional Source Comments FOR RECORDS PERTAINING TO [...] BE BASED ON THE PRIMARY CLINICAL RECORDS. [facility] provides no warranty or guarantee of the accuracy or completeness of information in this document. UNRECOGNIZED CONTENT PROVIDED BELOW FOR UNRECOGNIZED SECTION No Status Records Found UNRECOGNIZED CONTENT PROVIDED BELOW FOR UNRECOGNIZED SECTION INFORMATION SOURCE DATE CREATED AUTHOR AUTHOR'S ORGANIZATIO N 11/26/2018 [facility] DATE CREATED AUTHOR AUTHOR'S ORGANIZATIO N 11/27/2018 [facility] Ref erence Lab DATE CREATED AUTHOR AUTHOR'S ORGANIZATIO N 06/20/2019 [facility] ([place]) DATE CREATED AUTHOR AUTHOR'S ORGANIZATIO N 07/23/2020 [facility] UNRECOGNIZED CONTENT PROVIDED BELOW FOR UNRECOGNIZED SECTION Source Comments In the event this information is protected by the Federal Confidentiality of Alcohol and Drug Abuse Patient Records regulations: The Federal rules restrict any use of the information to criminally investigate or prosecute any alcohol or drug abuse patient.[facility] the event this information is protected by the Federal Confidentiality of Alcohol and Drug Abuse Patient Records regulations: The Federal rules restrict any use of the information to criminally investigate or prosecute any alcohol or drug abuse patient.[facility] the event this information is protected by the Federal Confidentiality of Alcohol and Drug Abuse Patient Records regulations: The Federal rules restrict any use of the information to criminally investigate or prosecute any alcohol or drug abuse patient.[facility] UNRECOGNIZED CONTENT PROVIDED BELOW FOR UNRECOGNIZED SECTION Reason for Visit Reason Comments Abdominal Pain bloating, back pain Reason Comments Pelvic Pain
--- OUTSIDE RECORDS SUMMARY | 2020-07-26 09:22 | XMS RPT_ITS | CCD ---
:1985 External Reference #:[id number] Author Organization [facility] Care Team Providers Name Role Phone KEE CORTEZ Admitting Unavailable KEE CORTEZ Attending Unavailable KEE CORTEZ Primary Care Unavailable EMPLOYEE Admitting Unavailable EMPLOYEE Attending Unavailable EMPLOYEE Primary Care Unavailable Alan Crowe Primary Care Provider Jordon Wetzel Primary Care Provider Allergies Reported Allergen Reaction(s) Severity Date of Onset Location Acetaminophen Vomiting 04-15-2008 - [facility] (42199) HYDROmorphone Other: See Comments 04-15-2008 - [facility] (53450) Penicillins Hives 04-15-2008 - [facility] (09530) Medications Medication Name Sig Date Prescriber Location Baclofen BACLOFEN ORAL Take by [facility] Provider [facility] (64422) mouth. 0 Active BACLOFEN ORAL Take by mouth. 0 Active [facility] Provid er [facility] (58210) Comment: Take by mouth. clonazePAM clonazePAM (KLONOPIN) 1 mg tablet [facility] Pro vider [facility] (82779) Take 1 mg by mouth twice daily as needed. 0 Active Comment: Take 1 mg by mouth twice keily ly as needed. Problems Active Problems Category Problem Name Status Date Location Abdominal pain Pain in female pelvis Active [facility] (45381) Other bone disease and Somatic dysfunction Active 02-25-2013 - [facility] musculoskeletal of thoracic region (02774 ) deformities Other bone disease and Somatic dysfunction Active 02-25-2013 - [facility] musculoskeletal of lumbar region (99813) deformities Other female genital Heavy episode of Active [facility] disorders vaginal bleeding (78314) Ovarian cyst Cyst of right ovary Active [facility] (07076) Past or Other Problems Category Problem Name Status Date Location Spondylosis; intervertebral Backache Completed 02-25-2013 - [facility] disc disorders; other back ( 15022) problems Results Result Name Value Range Unit Interpretation Flag Date Location progress on 2020-07 PROGRESS HNO ID: [id number] Normal 07-22-2020 [facility] Author: Lakeisha Sanchez ([id number]) Service: ? Author Type: Physician Type: Progress Notes Filed: 07/22/2020 5:16 PM Note Text: Carolina Monteiro is a 35 year old female who presents for [facility] visit for acute onset of RLQ pain.. [...] 2020-07-22 CNOV Office Visit (OBGYWM) Normal 07-22-20 [facility] Jyothi MONTEIROJORGECAROLINA L ([id number]) 1985 [facility] Date Time Provider Department ([id number]) 07/22/20 11:00 AM LAKEISHA CLARK OBGYWM During [...] 07/22/20 progress on 2020-07 PROGRESS HNO ID: [id number] Normal 07-20-2020 [facility] Author: Lawanda (Cnm) Taz [facility] ([id number]) Service: ? Author Type: Outpatient Services Director Type: Progress Notes Filed: 07/20/2020 3:35 PM [...] PRN Lawanda Ambrosio APRN.CNM PROGRESS HNO ID: [id number] Normal 07-20-2020 [facility] Author: Reno (Suki) Aminata [facility] ([id number]) Service: ? Author Type: Nurse Practitioner Type: [...] chief complaint patient will be sent to [facility] for further evaluat ion. Appointment today was made. Patient agreed with plan of care . hcg, quantitative bl on 2020-07-20 HCG, Quantitative Bl <0.6 <5.0 Normal 0 [facility] (82954) Comment: Result Comment: NEGATIVE Performed By: #### HCGQT ### # [facility] Laboratorie s [address] [place], [place] [address] cnov on 2020-07-20 CNOV Office Visit (OBGYWM) Normal 07-20-20 [facility] Jyothi CAROLINA MONTEIRO ([id number]) 1985 F [facility] Date Time Provider Department (86357) 07/20/20 2:45 PM LAWANDA AMBROSIO ([facility]) OBGYWM During your visit today, we recorded the following informati on about you: Blood pressure Weight Last Period 100/60 67.1 kg 07/20/20 Lawanda Ambrosio APRN.RACHID 07/20/2020 3:35 PM Signed Carolina Rojas Slick is a 35 year old female who presents for problem visit of cramping and vaginal bleeding starting today at 1 pm. Agus berry works a [employer]. HPI: Patient stopped Depo-Pr overa shot in [...] [N 93.9] Order(s):HCG QUANTITATIVE [SQHCGQT] Order #: [id number] FUTU RE HCG QUANTITATIVE [SQHCGQT] Order #: [id number] FUTURE Prescriptions as of 07/20/2020 Sig: CLONAZEPAM [...] Disposition History Recorded Encounter Status:Closed by LAWANDA AMBORSIO APRN.CNM on 07/09 11/28 CN Office Visit (UCWSTR) Normal 07-20-[address] [place] [address] CAROLINA Zuluaga ([id number]) 1985 [facility] Time Provider Department (59915) 07/20/20 2:30 PM RENO COATES (SUKI) WSTR During your visit today, [...] complaint patient wi ll be sent to [facility] for further evaluation. Appointment today was made. [...] on 2018-11-13 NICOTINE/COTININE, SERUM [CCL] Normal 11-13-2018 [facility] ( 19956) Comment: Result Comment: _NICOTINE/CO TININE, SERUM [CCL]_ [...] developed and its performance characteristics determined by [facility]. It has not been cleared or approved by the FDA. [facility] amorcritical access hospital is authorized under CLIA to perform high-complexity test ing. This test is used for clinical purposes. It should not be r egarded as investigational or for research. [facility] [address] [place] [address] Mayra Forbes M.D. [id number] Performed By: #### [id number] ## ## [facility],[address] [place] [address] nicotine/cotinine o n 2018-11-13 Nicotine <2 <2 Normal 11-13-2018 [facility] Reference Lab (60541) Comment: Performed By: #### MEASLG, M UMPSG, RUBIGG #### [facility] Routine Lab [address] [place] [address] #### NICOT #### [facility] Chemistry [address] [address] Nornicotine Absent Absent Normal 11-13-2018 [facility] Reference Lab (81442) Comment: Performed By: #### MEASLG, M UMPSG, RUBIGG #### [facility] Routine Lab [address] [address] #### NICOT #### [facility] Chemistry [address] [place] [address] Trimethoprim+Sulfamethoxazole susc <2 <2 Addie l 11-13-2018 [facility] Reference Lab (24165) Comment: Performed By: #### MEASLG, M UMPSG, RUBIGG #### [facility] Routine Lab [address] [address] #### NICOT #### [facility] Chemistry [address] [address] rubella igg antibody on 2018-11-09 Rubella IgG Ab 3.96 Index Value Normal 11-09-2018 [facility] Reference Lab (53972) Comment: Performed By: #### MEASLG, M UMPSG, RUBIGG #### [facility] Routine Lab [address] [place], [place] [address] #### NICOT #### [facility] Chemistry [address] [address] Rubella IgG Ab, Qual Positive Negative Abnormal 9 [facility] Reference Lab (79446) Comment: Performed By: #### MEASLG, M UMPSG, RUBIGG #### [facility] Routine Lab [address] [place] [phone] #### ANURAG #### [facility] Chemistry [address] [id number] rubella igg antibody [ccl] on 2018-11-09 RUBELLA IgG ANTIBODY [CCL] Normal [facility] (56792) Comment: Result Comment: _RUBELLA IGG ANTIBODY [CCL]_ [...] indicative of the amount of antibody present. [facility] [address] [place] [address] Mayra Forbes M.D. [id number] Performed By: #### [id number] ## ## [facility],[address] [place], [place] [id number] mumps igg ab on 06-10-01 Mumps IgG Ab 113.0 AU/mL Normal 11-09-2018 [facility] Reference Lab (51854) Comment: Performed By: #### MEASLG, M UMPSG, RUBIGG #### [facility] Routine Lab [address] [place], [place] [address] #### NICOT #### [facility] Chemistry [address] [address] Mumps IgG, Qual Positive Negative Abnormal 11-09-2018 [facility] Reference Lab (90458 ) Comment: Performed By: #### MEASLG, M UMPSG, RUBIGG #### [facility] Routine Lab [address] [place] [address] #### NICOT #### [facility] Chemistry [address] [phone] mumps igg ab [ccl] on 2018-11-09 MUMPS IGG AB [CCL] Normal 11-09-2018 [facility] (23841) Comment: Result Comment: _MUMPS IGG A B [...] of the amount of antibody prese nt. [facility] Laboratorie s [facility] [place] [address] Mayra Forbes M.D. [id number] Performed By: #### [id number] ## ## [facility],[address] [place], [place] [id number] measles igg antibody on 2018-11-09 Measles IgG Ab, Qual Negative Abnormal 9 [facility] Reference Lab (69086) Comment: Result Comment: Positive Pre sence of detectable measles virus IgG antibodies. A positive result generally indicates exposure to measles virus or previous vaccination. Performed By: #### MEASLG, M UMPSG, RUBIGG #### [facility] Routine Lab [address] [address] #### NICOT #### [facility] Chemistry [address] [place] [phone] Measles IgG Antibody 33.9 AU/mL Normal 9 [facility] Reference Lab (78271) Comment: Performed By: #### MEASLG, M UMPSG, RUBIGG #### [facility] Routine Lab [facility] [address] #### NICOT #### [facility] Chemistry [address] [place] [phone] measles igg antibody [ccl] on 2018-11-09 MEASLES IGG ANTIBODY [CCL] Normal [facility] (64475) Comment: Result Comment: _MEASLES IGG ANTIBODY [CCL]_ [...] of the amount of antibody prese nt. [facility] [address] [place] [address] Mayra Forbes M.D. [id number] Performed By: #### [id number] ## ## [facility],[address] [place] [address] hepb surfaceab,quant on 2018-11-09 HepB SurfaceAb,Quant >1000.00 <8.00 High 9 [facility] Reference Lab (90762) Comment: Performed By: #### Marlon LOPEZ UMPSG, MARYCRUZ #### [facility] Routine Lab [address] [place] [phone] #### ANURAG #### [facility] Chemistry [address] [place], [place] [address] hep b surface ab, quant [ccl] on 2018-11-09 HEP B SURFACE AB, QUANT [CCL] Normal 11-09-2018 [facility] (04199) Comment: Result Comment: _HEP B SURFA CE AB, QUANT [CCL]_ HEP B SURFACE AB, QUANT [CCL ] Reported: 11/09/2018 11:55 S tatus=F TEST RESULT FLAG RANGE UNITS HepB SurfaceAb,Quant >1000.0 0 H <8.00 mIU/mL 11/09/18.1158.[email or web address] [facility] [address] [place] [address] Mayra Forbes M.D. [id number] Performed By: #### [id number] ## ## [facility],[address] [place], [place] [phone] lipid profile on 27-10-30 Cholesterol in HDL mass conc 70 40 - 60 mg/dl High 0 11-08-2018 [facility] ( 45937) Comment: Performed By: #### [id number] ## ## [facility],[address] [place] [address] Cholesterol in LDL mass 98 0 - 129 mg/dl Normal 2018 [facility] ( 45777) Comment: Performed By: #### [id number] ## ## [facility],[address] [facility] [address] Cholesterol mass conc 185 0 - 200 mg/dl Normal 11-08-[address] [facility] ( 65143) Comment: Performed By: #### [id number] ## ## [facility],[address] [place] [address] Cholesterol.total/Cholesterol in HDL 2.6 0.0 - 5.0 Nor mal 11-08-2018 [facility] (24726) Comment: Performed By: #### [id number] ## ## [facility],[address] [place] [address] Protein mass conc Normal 11-08-2018 [facility] (81448) Comment: Result Comment: LIPID PROFIL E Performed By: #### [id number] ## ## [facility],[address] [place] [address] Triglyceride mass conc 84 0 - 150 mg/dl Normal 019 [facility] ( 29941) Comment: Performed By: #### [id number] ## ## [facility],[address] [place] [address] glucose on Glucose mass conc 95 74 - 106 mg/dl Normal 11-08-2018 [facility] (10862) Comment: Performed By: #### [id number] ## ## [facility],[address] [place] [address] drug screen urine medic on 2018-11-08 Amphetamines Ql (U) NEG Normal 11-08-2018 [facility] (33583) Comment: Performed By: #### [id number] ## ## [facility],[address] [place] [address] B-DIAZEPINES NEG Normal 11-08-2018 [facility] (98849) Comment: Performed By: #### [id number] ## ## [facility],[address] [facility] [address] BARBITURATES NEG Normal 11-08-2018 [facility] (16997) Comment: Performed By: #### [id number] ## ## [facility],[address] [facility] [address] Cocaine Ql (U) NEG Normal 11-08-2018 [facility] (25828) Comment: Performed By: #### [id number] ## ## [facility],[address] [facility] [address] DRUG SCREEN URINE MEDIC Normal 2018 [facility] (87844) Comment: Result Comment: DRUG SCREEN - URINE Performed By: #### [id number] ## ## [facility],[address] [facility] [address] Methadone Ql (U) NEG Normal 11-08-2018 [facility] (30954) Comment: Performed By: #### [id number] ## ## [facility],[address] [facility] [place] [address] Opiates Ql (U) NEG Normal 11-08-2018 [facility] (64843) Comment: Performed By: #### [id number] ## ## [facility],[address] [facility] [address] PCP NEG Normal 11-08-2018 [facility] (07941) Comment: Performed By: #### [id number] ## ## [facility],[address] [facility] [place] [address] TCA POS Normal 11-08-2018 [facility] (38775) Comment: Performed By: #### [id number] ## ## [facility],[address] [place] [address] [place] [address] THC NEG Normal 11-08-2018 [facility] (14210) Comment: Result Comment: PATIENTS REC EIVING PROTON PUMP INHIBITORS MAY DEMONSTRATE FALSE POSITIVE THC/CANNABINOID RESULTS. AN ALTERNATIVE CONFIRMATORY METHOD SHOULD BE CONSIDERED TO VERIFY POSITIVE RESULTS. Performed By: #### [id number] ## ## [facility],[address] [place] [address] final surgical pathology report on 2018-08-21 Final Surgical . Normal 08-21-2018 [facility] Pathology Report Pathology Reports [facility] ([place]) Accession: Collected Date/Time: Received Date/Time: Patholog ist: ([id number]) [id number] 08/17/2018 15:08 EST 08/20/2018 09:09 EST MD HERNESTO DE LA CRUZ Final Surgical Pathology Report DIAGNOSIS: A) SKIN, LEFT LOWER LEG -- DERMATOFIBROMA. B) SKIN, RIGHT POSTERIOR THIGH -- INTRADERMAL NEVUS. COMMENT: [facility] #[id number] CLINICAL INFORMATION: NEOPLASM OF UNCERTAIN BEHAVIOR OF [...] in one cassette. Dictated by Annie SWEET ([facility]) MICROSCOPIC DESCRIPTION: A&B) Slides reviewed. Electronically Signed by Pathology Report verified by [facility] Electronically signed by HERNESTO BEE MD Sign out Date: 08/21/2018 16:19 Performing Lab: [facility], [address] [place] [address] Comment: Performed By: #### SPFR #### [place] [address] xr spine lumbar 2 views on 2018-06-22 XR SPINE ORIGINAL Normal 06-22-2018 [facility] LUMBAR 2 VIEWS XR SPINE LUMBAR 2 VIEWS [facility] ([place]) (84200) CLINICAL STATEMENT: ddd COMPARISON: None FINDINGS:5 lumbar [...] Usha Chatman MD Preliminary Report By: Usha Chatmna MD Electronically Signed By: Usha Chatman MD Dictated Date: 06/22/2018 12:43:15 PM Prelim Date: 06/22/2018 12:43:15 PM Sign Date: 06/22/2018 12:43:55 PM No panel information on 2010-03-19 Cholesterol [Mass/Vol] OPERATIVE PROCEDURE: 03-19-2010 [facility] Lap shadi (77202) CLINICAL INFORMATION: Cholelithiasis Cholesterol [Mass/Vol] FINAL DIAGNOSIS: 03-19-2010 [facility] GALLBLADDER, CHOLECYSTECTOMY - VERY MILD CHRONIC CHOLECYSTIT IS. (99304) SPECIMEN: GALLBLADDER CONVERTED ELECTRONIC KAIA DURHAM M.D., PATHOLOGIST 03-19-2010 [facility] SIGNATURE (Electronic signature on file) ([id number]) Final Signed Out: 03/19/2010 15:16 CONVERTED GROSS GROSS DESCRIPTION: 03-19 [facility] DESCRIPTION Gallbladder (12436 ) The specimen is received in a [...] of the wall averages 0.1 cm. A telephone services sales representative sample of the gallbladder is richard bmitted in a single cassette. SDS/SMS/gpl MICROSCOPIC DESCRIPTION: Slides reviewed. EDS/gpl CONVERTED ORDERING Ordering Provider: HERNESTO 03-19-2010 [facility] PROVIDER GEGE (66546) Vital Signs Vital Sign Description Value / Unit Date Location The following section is limited to 5 en tries per type and includes entries from the following time range: 20200720 - 20200709 4. 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 [facility] EMPLOYEE (40911) 11-08-2018 - Patient encounter CHARLIE Bryant 11-08-2018 procedure DIEGO CORTEZ [facility] (61303) 03-18-2010 - Patient encounter Hernesto Wu [facility] 03-18-2010 procedure 03-18-2010 Results Only Hernesto Wu [facility] Procedures Procedure Name Date Provider Location CONVERTED SURGICAL PATHOLOGY 03-18-2010 Hernesto Peña n [facility] (80020) Plan of Treatment Plan Description Date Location HPV TESTING HPV TESTING 09-10-2023 - [facility] 09-10-2023 (27043) PAP TESTING PAP TESTING 09-10-2023 - [facility] 09-10-2023 (07841) INFLUENZA (#1) INFLUENZA (#1) 2020 - [facility] 06-09-2020 (06484) DTAP,TDAP,TD (1 - Tdap) DTAP,TDAP,TD (1 - Tdap) 2002 - [facility] 2002 (72663) HEPATITIS C SCREENING HEPATITIS C SCREENING 2001 - [facility] 2001 (17557) HIV SCREENING HIV SCREENING 2001 - [facility] 2001 (38775) HCG QUANTITATIVE HCG QUANTITATIVE Lab 07-20-2021 [facility] Routine Episode of heavy (04442) vaginal bleeding 1 Occurrences starting 07/20/2020 until 07/20/2021 Comment: 1 Occurrences starting 07/20 until 07/20/2021 HCG QUANTITATIVE HCG QUANTITATIVE Lab Routine Primary [facility] (06608) amenorrhea 07/20/2020 3:31 PM EDT Immunizations Vaccine Notes Status Date Location Influenza Vaccine, influenza virus (completed) 10-19-2012 - [facility] Split-Non Spec vaccine, unspecified 10-19-2012 (4419 5) formulation Payers Payer Name Policy Number Location [employer] [id number] [facility] (44 195) [id number] (44 195) The following information is from the original human readable contentNo Payer Records FoundNo Payer Records FoundNo Payer Records FoundNo Payer Records FoundNo Payer Records FoundNo Payer Records FoundNo Payer Records Found Social History Type Social History Date Location Description Tobacco smoking status Unknown if ever smoked [facility] (24750) Sex Assigned At Not on file [facility] (06926) Tobacco [facility] status [facility]81752[facility] Tobacco use and Never used 07-20-2020 - [facility] exposure 07-22-2020 (97493) Alcohol intake Current non-drinker of 07-20-2020 [facility] alcohol (finding) 07-22-2020 (44630) Exposure to SARS-CoV-2 Not sure [facility] (event) (11561) The following information is from the original [...] BE BASED ON THE PRIMARY CLINICAL RECORDS. [facility] provides no warranty or guarantee of the accuracy or completeness of information in this document. UNRECOGNIZED CONTENT PROVIDED BELOW FOR UNRECOGNIZED SECTION No Status Records Found UNRECOGNIZED CONTENT PROVIDED BELOW FOR UNRECOGNIZED SECTION INFORMATION SOURCE DATE CREATED AUTHOR AUTHOR'S ORGANIZATIO N 11/26/2018 [facility] DATE CREATED AUTHOR AUTHOR'S ORGANIZATIO N 11/27/2018 [facility] Ref erence Lab DATE CREATED AUTHOR AUTHOR'S ORGANIZATIO N 06/20/2019 [facility] Found ation ([place]) DATE CREATED AUTHOR AUTHOR'S ORGANIZATIO N 07/23/2020 [facility] UNRECOGNIZED CONTENT PROVIDED BELOW FOR UNRECOGNIZED SECTION Source Comments In the event this information is protected by the Federal Confidentiality of Alcohol and Drug Abuse Patient Records regulations: The Federal rules restrict any use of the information to criminally investigate or prosecute any alcohol or drug abuse patient.[facility] the event this information is protected by the Federal Confidentiality of Alcohol and Drug Abuse Patient Records regulations: The Federal rules restrict any use of the information to criminally investigate or prosecute any alcohol or drug abuse patient.[facility] the event this information is protected by the Federal Confidentiality of Alcohol and Drug Abuse Patient Records regulations: The Federal rules restrict any use of the information to criminally investigate or prosecute any alcohol or drug abuse patient.[facility] UNRECOGNIZED CONTENT PROVIDED BELOW FOR UNRECOGNIZED SECTION Reason for Visit Reason Comments Abdominal Pain bloating, back pain Reason Comments Pelvic Pain
== END 2020-03-15 21:37 | disposition home or self-care (01) ==
LOC: ED 21:29
PROVIDERS: Emergency Provider Emergency Medicine; PCP Preventive Medicine Occupational Medicine
DX: M62.830 Muscle spasm of back (principal); F17.200 Nicotine dependence, unspecified, uncomplicated
CPT/HCPCS: 96372; 99283

== ENCOUNTER 2020-04-09 17:59 | Emergency (ER) | payer OTHER, MEDICAID, SELFPAY ==
[2020-04-09 18:00] VITALS: BP 96/70; PULSE 110; RESP 18; TEMP 37.3; O2SAT 100; BMI 21.4
--- NOTE | 2020-04-09 18:22 | RAD_ITS ---
STUDY: X-RAY - THORACIC SPINE REASON FOR EXAM: Female, 35 years old. BACK PAIN, NO KNOWN INJURY TECHNIQUE: 3 view(s) of the thoracic spine were obtained. COMPARISON: None. FINDINGS: Normal kyphosis of the thoracic spine. There is no substantial scoliosis. Normal thoracic vertebrae and endplates. Normal disc space heights. The soft tissue structures are unremarkable. RAD/Thoracic Spine 3 Views IMPRESSION: Normal x-ray examination of the thoracic spine. Electronically Signed: Racheal Rdz MD at 19:22 EDT Tel , Service support ,
[2020-04-09] MEDS: oxyCODONE 5 MG Tablet PO (18:27)
--- NOTE | 2020-04-09 18:38 | RAD_ITS ---
STUDY: X-RAY - UNILATERAL RIBS ( RIGHT ) WITH CHEST REASON FOR EXAM: Female, 35 years old. RIGHT RIB PAIN, NO KNOWN INJURY TECHNIQUE - RIBS: 2 view(s) of the ribs. TECHNIQUE - CHEST: 1 COMPARISON: Chest x-ray 12/29/2017. FINDINGS - RIBS: Normal visualized ribs without a demonstrated fracture. FINDINGS - CHEST: The lungs are clear and expanded. There is no demonstrated pleural abnormality. Normal size heart. Normal mediastinum and gala. Normal visualized pulmonary arteries. Normal visualized aortic arch and descending thoracic aorta. Normal visualized thoracic spine. Normal visualized ribs, clavicles, and shoulders. There is no demonstrated abnormality of the visualized soft tissue structures of the upper abdomen. RAD/Ribs Uni Min 3V w/PA Chest IMPRESSION: RIBS: Normal x-ray examination of the ribs. CHEST: Normal x-ray examination of the chest. Electronically Signed: Racheal Rdz MD at 19:26 EDT Tel , Service support ,
--- NOTE | 2020-04-09 19:51 | ED.VIS.GEN ---
History of Present Illness Chief Complaint: Back Onset: Month(s) Narrative: Reports pain in the upper back and right ribs for the past few months. Denies trauma chest pains or shortness of breath. History of lower lumbar disease with L5-S1 laminectomy 10 to [address] Pitts. Reports using ibuprofen 800 mg every 4 hours. No abdominal pain or melena. Reports was told significant be degenerative disc disease that can cause her symptoms. Prior similar symptoms: Yes Past Medical History - Allergies and Home Meds Allergies/Adverse Reactions: Allergies adhesive Allergy (Verified 04/09/20 18:01) Rash erythromycin base [Erythromycin Base] Allergy (Verified 04/09/20 18:01) Hives estradiol Allergy (Verified 04/09/20 18:01) Anaphylaxis Penicillins [PCN] Allergy (Verified 04/09/20 18:) Anaphylaxis acetaminophen [From Tylenol] Adverse Reaction (Verified 04/09/20 18:01) Vomiting ferrous sulfate Adverse Reaction (Verified 04/09/20 18:01) Other Primary Care Physician: Blaise Wetzel DO [Primary Care Provider] - 3-5 Days Past Medical History: - - Asthma, arthritis, lumbar disease. Surgical History: cholecystectomy Smoking Status: Current every day smoker Review of Systems General: Denies: Chills, Fever, Sweats Eyes: Denies: Visual changes - bilaterally, Diplopia ENT: Denies: Rhinorrhea, Sore throat Cardiovascular: Denies: Chest pain, Palpitations Respiratory: Denies: Dyspnea, Cough, Dyspnea on exertion Gastrointestinal: Denies: Abdominal pain, Nausea, Vomiting, Diarrhea, Melena, Hematochezia Genitourinary: Denies: Dysuria, Hematuria, Frequency Musculoskeletal: Reports: Back pain, - - Right rib pain. Denies: Extremity Pain Skin: Denies: Rash, Wounds Neurological: Denies: Headache, Weakness, Numbness Physical Exam Vital Signs/Narrative: Vital Signs Temp Pulse Resp BP Pulse Ox 04/09/20 18:00 99.1 F 110 H 18 96/70 100 Inital Vital Signs reviewed: Yes General: Well nourished, Well developed, No Acute Distress Head: Normocephalic, Atraumatic Eyes: Perrl, EOMI ENT: Moist mucous membranes, No rhinorrhea Neck: Supple, Nontender Cardiovascular: Regular rate, Regular rhythm, No murmurs Respiratory: No distress, CTA bilaterally, - - Symmetric breath sounds. No crepitus of the ribs. No rash. Abdomen: Soft, Nontender, Nondistended, Normal bowel sounds Back: Normal Inspection, - - Mild midthoracic tenderness without any step-offs. Extremities: Nontender, No edema Skin: Normal color, No rash Neurological: Alert, Oriented x3, Cranial nerves II-XII grossly intact, Normal Strength, Normal Sensation Psychological: Normal affect, Normal Mood Diagnostic/Tx/Re-eval Clinical Impression(s) from Imaging Studies Thoracic Spine X-Ray 04/09/20 18:22 IMPRESSION: Normal x-ray examination of the thoracic spine. Electronically Signed: Racheal Rdz MD at 19:22 EDT Tel , Service support , Ribs w/Chest X-Ray 04/09/20 18:38 IMPRESSION: RIBS: Normal x-ray examination of the ribs. CHEST: Normal x-ray examination of the chest. Electronically Signed: Racheal Rdz MD at 19:26 EDT Tel , Service support , - Medical Decision Making Discussed with patient appropriate NSAID use to avoid gastric ulcers and bleeds. She cannot tolerate Tylenol causing severe vomiting. Given dose of oxycodone in the ED. X-rays of thoracic spine and ribs all were normal. Oars report last oxycodone prescription on the ninth of last month by her PCP. Will write prescription for 10 tabs and follow-up with her PCP. All questions were answered. ED Disposition - Plan for ED Patient: Disposition: Home or Assisted Living Diagnosis: Thoracic myofascial strain, Rib pain on right side Instructions: ED Sprain Thoracic Spine Prescriptions: Oxycodone [Oxyir] 5 mg PO Q6H PRN PRN 3 Days #10 tab PRN Reason: Pain Or Fever Transmission Status: Received by [facility] Referrals: Blaise Wetzel DO [Primary Care Provider] - 3-5 Days
[2020-04-09 20:07] VITALS: BP 98/64; PULSE 92; RESP 18
== END 2020-04-09 20:07 | disposition home or self-care (01) ==
PROVIDERS: Emergency Provider Emergency Medicine; PCP Preventive Medicine Occupational Medicine
DX: S29.012A Strain of muscle and tendon of back wall of thorax, initial encounter (principal); R07.81 Pleurodynia; J45.909 Unspecified asthma, uncomplicated; M19.90 Unspecified osteoarthritis, unspecified site; F17.200 Nicotine dependence, unspecified, uncomplicated; X58.XXXA Exposure to other specified factors, initial encounter; Y93.89 Activity, other specified; Y92.89 Other specified places as the place of occurrence of the external cause; Y99.8 Other external cause status
CPT/HCPCS: 71101; 72072; 99283

== ENCOUNTER 2020-05-29 13:42 | Emergency (ER) | payer OTHER, MEDICAID, SELFPAY ==
[2020-05-29 13:43] VITALS: BP 115/77; PULSE 94; RESP 15; TEMP 37.2; O2SAT 100; BMI 22.8
--- NOTE | 2020-05-29 14:03 | ED.VISSUMM ---
- ER Visit Summary Date of Service: 05/29/20 Chief Complaint: [Dental pain] History of Present Illness: The patient is a 35 F [presents to the emergency department complaint of dental pain that started 3 days ago. Patient had a dental extraction 4 days ago of her right upper wisdom tooth. Patient was seen back by her dentist yesterday and had a tooth irrigated and was started on Biaxin. Patient continues to complain of discomfort and the dentist is not in today. Patient denies any fever.] Physical Examination: [HEENT-PERRLA, EOMI. Cranial nerves II through XII grossly intact. TMs clear. Mucous membranes moist. No adenopathy. Titian-patient has a recently extracted right upper first molar tooth #1. There is no erythema or abscess noted. Patient does have some discomfort on palpation of the extraction site. Cardiovascular-regular rate and rhythm without murmur or ectopy Lungs-clear to auscultation, chest wall stable without crepitus or subcu emphysema Abdomen-normoactive bowel sounds, soft, nontender, no rebound or rigidity, no peritoneal signs. Extremities-intact ?4, normal range of motion, normal pulses, atraumatic] Test Results: [None indicated] Emergency Department Course and Treatment: [] Treatment Plan: [She will be given a prescription for 10 Percocet for pain. Patient advised contact and follow-up with her dentist at the earliest possible time.] Disposition: [Discharged home in stable condition] Impression: [Post extraction dental pain] This note was generated with [employer] dictation software. It may contain incorrect words, spelling, and punctuation that were not noted in review of the chart prior to signing ED Disposition - Plan for ED Patient: Referrals: Blaise Wetzel DO [Primary Care Provider] -
--- NOTE | 2020-05-29 14:05 | ED.DEP ---
ED Disposition - Plan for ED Patient: Instructions: ED Tooth Pain Prescriptions: Oxycodone HCl/Acetaminophen [Percocet 5/325] 1 tab PO Q6H PRN PRN 3 Days #10 tab PRN Reason: Pain Prescription Printed Referrals: Blaise Wetzel DO [Primary Care Provider] - Additional Instructions: see your dentist at earliest possible time
[2020-05-29 14:16] VITALS: PULSE 75; RESP 14; O2SAT 99
== END 2020-05-29 14:16 | disposition home or self-care (01) ==
LOC: ED 14:14
PROVIDERS: Emergency Provider Emergency Medicine; PCP Preventive Medicine Occupational Medicine
DX: K08.89 Other specified disorders of teeth and supporting structures (principal); G89.18 Other acute postprocedural pain
CPT/HCPCS: 99282

== ENCOUNTER 2020-07-20 16:05 | Emergency (ER) | payer MEDICAID, SELFPAY ==
[2020-07-20 16:05] VITALS: BP 111/69; PULSE 91; RESP 16; TEMP 36.4; O2SAT 99; BMI 23.1
[2020-07-20 16:17] VITALS: BP 107/64; PULSE 70; RESP 18; O2SAT 97
[2020-07-20 17:28] LABS: Internal QC Validated? YES +Cl - CLEAR BKGD; Pregnancy, Serum, hCG Quali. NEGATIVE Negative
--- NOTE | 2020-07-20 17:51 | US_ITS ---
STUDY: ULTRASOUND OF THE FEMALE PELVIS - COMPLETE REASON FOR EXAM: Female, 35 years old. RLQ PAIN LMP: 06/23/2020 TECHNIQUE: Transvaginal TECHNICAL QUALITY: Adequate. COMPARISON: None. FINDINGS: The uterus is anteverted and is in a midline position. The uterus measures 8.5 x 6.4 x 5.2 cm. Normal uterine cervix. The endometrium measures 6 mm in thickness, and is hyperechoic. There is no demonstrated endometrial mass. There is no demonstrated myometrial mass. I.U.D. - The patient does not have an I.U.D. The right ovary is visualized. The right ovary measures 4.5 x 4.2 x 3.5 cm. There is a simple 3.7 cm cyst.. There is normal arterial and normal venous vascularity. The left ovary is visualized. The left ovary measures 2.3 x 1.3 x 0.7 cm. There is no left ovarian cyst or ovarian mass. There is no visualized left adnexal mass or complex lesion. There is normal arterial and normal venous vascularity. There is no fluid in the cul-de-sac. The bladder distends normally, without filling defect but there is echogenic debris within the bladder suggesting possible inflammation. US/Transvaginal Non- IMPRESSION: Sonographically normal uterus and left ovary Simple right ovarian cyst, no specific follow-up needed Bladder distends normally but contains echogenic debris within the urine suggesting inflammation, UA recommended for further evaluation Electronically Signed: Paxton Witt MD at 19:19 EDT , Service support ,
[2020-07-20] MEDS: Morphine 4 MG/ML Syringe IV (18:35)
[2020-07-20] MEDS: Ketorolac 15 MG/ML Vial IV (18:35)
[2020-07-20] MEDS: Ondansetron 4 MG/2 ML Vial IV (18:35)
[2020-07-20 18:42] VITALS: BP 98/65; PULSE 71; RESP 16; O2SAT 98
--- NOTE | 2020-07-20 19:15 | ED.DCSUM_ITS ---
History of Present Illness Chief Complaint: Abd Pain Detail of Chief Complaint: Right lower/adnexal pain with abnormal vaginal bleeding Informant: Patient Onset: Hours - 1300 Context: Sudden Onset Timing: Continuous Quality: Pain Location: Right adnexa Current Severity: Moderate Maximum Severity: Severe Worsened by: Movement Relieved by: Nothing Associated Symptoms: Abnormal vaginal bleeding Narrative: Patient is a 35-year-old woman who was last normal menstrual echo was not normal. She does have history ovarian cyst. Denies history of endometriosis. She denies history of STI. She denies vaginal discharge. She denies urologic symptoms. She denies back or flank pain. There is no history of trauma. Patient denies orthostatic symptoms. She is on no anticoagulant. Prior similar symptoms: No Recent Illness/Hospitalization: No - Past Medical History (1) History of ovarian cyst Status: Acute (2) Bladder spasms Status: Acute (3) MISBAH (generalized anxiety disorder) Status: Chronic (4) Migraines Status: Chronic (5) Tobacco user Status: Chronic Past Medical History - Allergies and Home Meds Allergies/Adverse Reactions: Allergies adhesive Allergy (Verified 07/20/20 16:07) Rash erythromycin base [Erythromycin Base] Allergy (Verified 07/20/20 16:07) Hives estradiol Allergy (Verified 07/20/20 16:07) Anaphylaxis Penicillins [PCN] Allergy (Verified 07/20/20 16:07) Anaphylaxis acetaminophen [From Tylenol] Adverse Reaction (Verified 07/20/20 16:07) Vomiting ferrous sulfate Adverse Reaction (Verified 07/20/20 16:07) Other Primary Care Physician: Blaise Wetzel DO [Primary Care Provider] - Prior records reviewed: Yes Surgical History: appendectomy, cholecystectomy Lives: - - Patient is . Smoking Status: Former smoker Alcohol: Rare Drugs: None Review of Systems General: Denies: Chills, Fever, Malaise, Subjective, Sweats ENT: Denies: Rhinorrhea, Sore throat Cardiovascular: Denies: Chest pain, Palpitations Respiratory: Denies: Dyspnea, Cough, Dyspnea on exertion Gastrointestinal: Reports: Abdominal pain Genitourinary: Reports: - - Positive vaginal bleeding with clots. Denies: Dysuria, Hematuria, Frequency Musculoskeletal: Denies: Myalgias, Arthralgias, Neck pain, Back pain, Swelling, Extremity Pain, -, - Skin: Denies: Rash, Wounds Neurological: Denies: Headache, Weakness, Numbness Hematologic: Denies: Easy bruising, Easy bleeding Physical Exam Vital Signs/Narrative: Vital Signs Temp Pulse Resp BP Pulse Ox 07/20/20 18:42 71 16 98/65 98 07/20/20 16:17 70 18 107/64 97 07/20/20 16:05 97.6 F L 91 16 111/69 99 Inital Vital Signs reviewed: Yes General: Well nourished, Well developed, Acute Distress Head: Normocephalic, Atraumatic Eyes: Perrl, EOMI ENT: Moist mucous membranes, No rhinorrhea Neck: Supple, Nontender Cardiovascular: Regular rate, Regular rhythm, No murmurs Respiratory: No distress, CTA bilaterally, Chest nontender Abdomen: Nontender, Nondistended, Normal bowel sounds, Tender : - - Genitalia normal. Patient has active bleeding with small clots in the vaginal vault. There is significant cervical motion tenderness and uterine tenderness as well as right adnexal tenderness. She guards and unable to determine if there is a mass or fullness. Back: Nontender, Normal Inspection Extremities: Nontender, No edema Skin: Normal color, No rash Neurological: Alert, Oriented x3, Cranial nerves II-XII grossly intact, Normal Strength, Normal Sensation Psychological: Normal affect, Normal Mood Diagnostic/Tx/Re-eval Impressions Transvaginal US 07/20/20 17:51 IMPRESSION: Sonographically normal uterus and left ovary Simple right ovarian cyst, no specific follow-up needed Bladder distends normally but contains echogenic debris within the urine suggesting inflammation, UA recommended for further evaluation Electronically Signed: Paxton Witt MD at 19:19 EDT , Service support , 07/20/20 17:51 Transvaginal Non- [US] Stat Laboratory Results 07/20/20 07/20/20 16:40 19:41 Serum , Qual NEGATIVE Urine Color Yellow Urine Clarity Clear Urine pH 6.5 Ur Specific [place] 1.010 Urine Protein Negative Urine Glucose (UA) Normal Urine Ketones Negative Urine Occult Blood 250 H Urine Nitrite Negative Urine Bilirubin Negative Urine Urobilinogen Normal Ur Leukocyte Esterase Negative Urine RBC 0-5 SEEN Urine WBC 0 SEEN Ur Squamous Epith Cells 0-5 SEEN Urine Bacteria 0 SEEN Urine Mucus 0 SEEN UA was obtained based on urologist interpretation of ultrasound and recommendation. UA is negative. - Medical Decision Making test was obtained. She is not . Differential included ovarian cyst, ovarian torsion, ectopic , since as is negative ultrasound was obtained to evaluate for cyst versus torsion. ED Disposition - Plan for ED Patient: Disposition: Home or Assisted Living Diagnosis: Right ovarian cyst, Abnormal vaginal bleeding Referrals: Blaise Wetzel DO [Primary Care Provider] - Maci Villalpando MD [STAFF PHYSICIAN] - As Needed
[2020-07-20 19:46] LABS: Bacteria 0 SEEN /hpf (None Seen); Mucous, Urine 0 SEEN /hpf (<or=2+); White Blood Cells 0 SEEN /hpf (0-5)
[2020-07-20 19:51] LABS: Color, Urine Yellow (Yellow); Glucose, Dipstick Normal (Normal); Ketone-Dipstick Negative (Negative); Leukocyte Esterase-Dipstick Negative /ul (Negative); Nitrite-Dipstick Negative (Negative); Occult Blood-Urine 250 /ul (Negative); Protein-Dipstick Negative (Negative); Urine Bilirubin Dipstick Negative (Negative); Urine Clarity Clear (Clear); Urine Urobilinogen Normal (Normal); Urine pH 6.5 (5.0 - 8.0)
[2020-07-20 20:02] LABS: Red Blood Cells-Urine 0-5 SEEN /hpf (0-5); Squamous Epithelial Cells - UA 0-5 SEEN /hpf (5-10)
[2020-07-20 20:06] VITALS: PULSE 79; RESP 18
--- NOTE | 2020-07-20 20:58 | ED.DCSUM_ITS ---
- ER Visit Summary Date of Service: 07/20/20 Chief Complaint: [] History of Present Illness: The patient is a 35 F [] Physical Examination: [] Test Results: [] Emergency Department Course and Treatment: [] Treatment Plan: [] Disposition: [] Impression: [] This note was generated with [employer] dictation software. It may contain incorrect words, spelling, and punctuation that were not noted in review of the chart prior to signing ED Disposition - Plan for ED Patient: Disposition: Home or Assisted Living Diagnosis: Abnormal vaginal bleeding, Right ovarian cyst Instructions: ED Bleed Irregular Vaginal, ED Cyst Ovarian Referrals: Maci Villalpando MD [STAFF PHYSICIAN] - As Needed Blaise Wetzel DO [Primary Care Provider] -
[2020-07-20 21:03] VITALS: BP 101/68; PULSE 75; RESP 18; O2SAT 96
== END 2020-07-20 21:06 | disposition home or self-care (01) ==
PROVIDERS: Emergency Provider Emergency Medicine; PCP Preventive Medicine Occupational Medicine
DX: N93.9 Abnormal uterine and vaginal bleeding, unspecified (principal); N83.201 Unspecified ovarian cyst, right side; Z87.891 Personal history of nicotine dependence
CPT/HCPCS: 76830; 81001; 84703; 93976; 96374; 96375; 99285; A4216; J2405

== ENCOUNTER 2020-10-04 12:55 | Emergency (ER) | payer MEDICAID, SELFPAY ==
[2020-10-04 12:56] VITALS: BP 94/69; PULSE 99; RESP 16; TEMP 36.4; O2SAT 98; BMI 24.0
--- NOTE | 2020-10-04 13:08 | RAD_ITS ---
STUDY: X-RAY - LUMBAR SPINE REASON FOR EXAM: Female, 35 years old. Trauma. Pain. TECHNIQUE: 2 view(s) of the lumbar spine were obtained. COMPARISON: 07/14/15 FINDINGS: There is no evidence of fracture or dislocation in the lumbar spine. The vertebral body heights are well-maintained. There are mild degenerative changes at L1/L2 and L5/S1. There is a large amount of stool in the colon. RAD/Lumbar Spine 2 or 3 Views IMPRESSION: No fracture or dislocation in the lumbar spine. Mild degenerative changes. Constipation. Electronically Signed: Rober Centeno, at 13:56 EST Tel , Service support ,
--- NOTE | 2020-10-04 13:08 | RAD_ITS ---
STUDY: X-RAY - CERVICAL SPINE REASON FOR EXAM: Female, 35 years old. Trauma TECHNIQUE: 4 view(s) of the cervical spine were obtained. COMPARISON: 03/31/17 FINDINGS: There is no evidence of fracture or dislocation in the cervical spine. The dens is intact. The vertebral body heights and disc spaces are well-maintained. There are no significant degenerative changes. The prevertebral soft tissues are unremarkable. There is no radiodense foreign body. RAD/Cerv Spine 2 or 3 Views IMPRESSION: No fracture or dislocation in the cervical spine. Electronically Signed: Rober Centeno, at 14:00 EST Tel , Service support ,
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
[2020-10-04] MEDS: Ketorolac 30 MG/ML Syringe IM (13:16)
[2020-10-04 14:14] VITALS: PULSE 90; RESP 15
== END 2020-10-04 14:15 | disposition home or self-care (01) ==
PROVIDERS: Emergency Provider Physician Assistant Medical; PCP Preventive Medicine Occupational Medicine
DX: S39.012A Strain of muscle, fascia and tendon of lower back, initial encounter (principal); S16.1XXA Strain of muscle, fascia and tendon at neck level, initial encounter; G89.29 Other chronic pain; Z87.891 Personal history of nicotine dependence; V48.0XXA Car driver injured in noncollision transport accident in nontraffic accident, initial encounter; Y93.I9 Activity, other involving external motion; Y92.411 Interstate highway as the place of occurrence of the external cause; Y99.8 Other external cause status
CPT/HCPCS: 72040; 72100; 96372; 99282

== ENCOUNTER 2020-10-05 11:04 | Emergency (ER) | payer MEDICAID, SELFPAY ==
[2020-10-04 12:56] VITALS: BMI 24.0
[2020-10-05 11:05] VITALS: BP 110/66; PULSE 101; RESP 19; TEMP 35.6; O2SAT 100; BMI 23.3
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
[2020-10-05] MEDS: Ketorolac 15 MG/ML Vial IM (11:33)
[2020-10-05] MEDS: Triamcinolone Acetonide 40 MG/ML Vial IM (11:34)
== END 2020-10-05 12:34 | disposition home or self-care (01) ==
LOC: ED 11:46
PROVIDERS: Emergency Provider Student in an Organized Health Care Education/Training Program; PCP Preventive Medicine Occupational Medicine
DX: M54.40 Lumbago with sciatica, unspecified side (principal); S39.012D Strain of muscle, fascia and tendon of lower back, subsequent encounter; J45.909 Unspecified asthma, uncomplicated; F17.200 Nicotine dependence, unspecified, uncomplicated; V49.9XXD Car occupant (driver) (passenger) injured in unspecified traffic accident, subsequent encounter
CPT/HCPCS: 96372; 99282

== ENCOUNTER 2020-11-01 14:21 | Emergency (ER) | payer OTHER, MEDICAID, SELFPAY ==
[2020-11-01 14:24] VITALS: BP 114/63; PULSE 91; RESP 16; TEMP 36.6; O2SAT 100; BMI 22.4
--- NOTE | 2020-11-01 14:41 | RAD_ITS ---
STUDY: X-RAY - LUMBAR SPINE REASON FOR EXAM: Female, 35 years old. FALL, BACK PAIN TECHNIQUE: 3 view(s) of the lumbar spine were obtained. COMPARISON: None FINDINGS: Normal lumbar lordosis. There is no substantial scoliosis. There is a normal alignment of the vertebrae. There is diffuse demineralization with multi-level endplate spondylosis. There is loss of disc space at L1-L2 and L5-S1. There is no demonstrated fracture. Cholecystectomy clips are present. Mild fecal residue of the right colon. RAD/Lumbar Spine 2 or 3 Views IMPRESSION: No compression fracture. Electronically Signed: Leonard Worthington MD ([place]) at 15:06 EST , Service support ,
[2020-11-01] MEDS: Ketorolac 30 MG/ML Syringe IM (14:52)
[2020-11-01] MEDS: Orphenadrine 60 MG/2 ML Ampul IM (14:52)
--- NOTE | 2020-11-01 15:15 | ED.DEP ---
ED Disposition - Plan for ED Patient: Instructions: ED Back Sprain/Strain Referrals: Blaise Wetzel DO [Primary Care Provider] -
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
[2020-11-01 15:54] VITALS: RESP 17
== END 2020-11-01 15:55 | disposition home or self-care (01) ==
LOC: ED 15:36
PROVIDERS: Emergency Provider Emergency Medicine; PCP Preventive Medicine Occupational Medicine
DX: M54.5 Low back pain (principal); G89.29 Other chronic pain
CPT/HCPCS: 72100; 96372; 99282

== ENCOUNTER 2020-11-02 14:23 | Emergency (ER) | payer OTHER, MEDICAID, SELFPAY ==
[2020-11-01 14:24] VITALS: BMI 22.4
[2020-11-02 14:25] VITALS: BP 106/64; PULSE 72; RESP 16; TEMP 36.2; O2SAT 100; BMI 22.4
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
--- NOTE | 2020-11-02 16:03 | CM.ED ---
SOCIAL WORK Active ED Care Plan Patient's ED Care Plan was revised and approved by Dr. Singh on 10/29/20. Copy of ED Care Plan was mailed via certified mail (tracking number [id number] [phone]) to patient. Copy of ED Care Plan faxed to patient's PCP Dr. Wetzel. Patient aware of ED Care Plan. Denies any questions at this time. Patient presents to ED today due to back pain. Reviewed ED Care Plan with Dr. Navarro and nursing. Era Odonnell, CONTINUOUS IMPROVEMENT CONSULTANT, SAIL FINISHER MACHINE
[2020-11-02 17:08] VITALS: BP 118/69; PULSE 72; RESP 15; O2SAT 98
== END 2020-11-02 17:08 | disposition home or self-care (01) ==
PROVIDERS: Emergency Provider Emergency Medicine; PCP Preventive Medicine Occupational Medicine
DX: M54.6 Pain in thoracic spine (principal); G89.29 Other chronic pain; F17.200 Nicotine dependence, unspecified, uncomplicated
CPT/HCPCS: 71101; 72072; 99282

== ENCOUNTER 2021-03-03 23:30 | Emergency (ER) | payer OTHER, MEDICAID, SELFPAY ==
[2021-03-03 23:32] VITALS: BP 158/86; PULSE 126; RESP 16; TEMP 36.8; O2SAT 98; BMI 21.9
--- NOTE | 2021-03-03 23:42 | EKG12_ITS ---
Test Reason : CP Blood Pressure : / mmHG Vent. Rate : 105 BPM Atrial Rate : 105 BPM P-R Int : 118 ms QRS Dur : 078 ms QT Int : 338 ms P-R-T Axes : 076 071 071 degrees QTc Int : 446 ms Sinus tachycardia Possible Left atrial enlargement Nonspecific ST abnormality Abnormal ECG Confirmed by VIK LEON, AJIT ([id number]), medical editor SULY ZEPEDA ([id number]) on 03/04/2021 11:34:02 AM Referred By: BRIAN Confirmed By:AJIT CHERY MD
--- NOTE | 2021-03-03 23:44 | ED.VIS.CHEST ---
HPI History of Present Illness Chief Complaint: Chest Other Narrative Narrative: Patient states she was at work this afternoon and felt some chest tightness and upper abdominal discomfort and throat tightness for 30 seconds. It went away on its own. Came back this evening for short period of time as well. This concerned her. She denies any cardiac history. Her only cardiac risk factors she does smoke cigarettes. Denies other cardiac risk factors. Denies pulmonary embolism or dissection risk factors. She stated sometimes her heart rate will race. She has a history of anxiety. She feels slight heartburn currently. No home treatment. Comes in for further evaluation. She is never had a heart attack. Has not had a stress test in the past. Had echocardiogram 2 years ago. [facility] Medical History (Updated 03/04/21 @ 02:[address] Feliberto Vick MD) Arthritis Asthma Back pain Chest pain Knee pain Limb weakness Migraine Stomach ulcer Home Medications clonazepam 1 mg PO BID PRN PRN 04/21/19 [History Last Taken Unknown] cyclobenzaprine 10 mg PO TID PRN #20 tab 10/04/20 [Rx Last Taken Unknown] Allergy/AdvReac Type Severity Reaction Status Date / Time adhesive Allergy Rash Verified 03/03/21 23:32 erythromycin base Allergy Hives Verified 03/03/21 23:32 [Erythromycin Base] estradiol Allergy Anaphylaxis Verified 03/03/21 23:32 Penicillins [PCN] Allergy Anaphylaxis Verified 03/03/21 23:32 acetaminophen [From Tylenol] AdvReac Vomiting Verified 03/03/21 23:32 ferrous sulfate AdvReac Other Verified 03/03/21 23:32 Family History Other Breast cancer Hypertension Surgical History History of adenoidectomy History of appendectomy History of back surgery History of nasal surgery History of ovarian cystectomy History of placement of ear tubes Hx laparoscopic cholecystectomy Status post left breast lumpectomy Social History Smoking Status: Former smoker alcohol intake: never ROS ROS ED ROS Narrative ROS General: Denies fever, chills, sweats Eyes: Denies visual changes, blurred vision, double vision ENT: Denies ear pain, rhinorrhea, sore throat Cardiovascular: See HPI Respiratory: Denies dyspnea, cough, sputum, dyspnea on exertion, orthopnea,PND GI: See HPI : Denies dysuria, hematuria, frequency Musculoskeletal: Denies myalgias, arthralgias, back pain Skin: Denies rash, abscess, abrasions Neuro: Denies headache, weakness, paresthesia Psych: Denies depression, anxiety Endo: Denies polyuria, polydipsia, polyphagia Heme: Denies easy bruising, easy bleeding, lymphadenopathy Allergy: Denies hives, swelling EXAM Physical Exam Narrative Exam Narrative: Vital signs reviewed General: Well-nourished well-developed Head: Normocephalic atraumatic Eyes: Pupils equal round and reactive to light extraocular movements intact ENT: TMs clear no hemotympanum no trauma Neck: Nontender full range of motion Cardiovascular: Regular rate rhythm no murmurs normal S1-S2 Respiratory: No distress clear to auscultation bilaterally chest nontender Abdomen: Soft nontender nondistended normal bowel sounds no masses Back: Nontender no CVA tenderness Extremities: Nontender active range of motion ?4 extremities no trauma Skin: Normal color no trauma Neuro alert oriented cranial nerves II through XII intact normal strength sensation reflexes Const Vital Signs: 03/03/21 23:32 03/04/21 00:15 03/04/21 01:41 Temperature 98.3 F Temperature Source Temporal Pulse Rate 126 H 99 80 Respiratory Rate 16 16 16 Respiratory Effort Normal Respiratory Pattern Normal Blood Pressure 158/86 H 134/92 H 121/73 H Blood Pressure Mean 110 106 89 Pulse Ox 98 100 99 Oxygen Delivery Method Room Air Room Air Room Air Heart Score History: Slightly/Non-Suspicious ECG: Nonspecific Repolarization Age: </= 45 years Risk Factors: 1 or 2 Risk Factors Troponin: </= Normal Limit Score: 2 MDM MDM MDM Narrative Medical decision making narrative: Patient resting comfortably without any significant symptoms currently. Lab work EKG chest x-ray obtained. Lab work shows nothing acute including CBC BMP troponin level. EKG shows sinus tachycardia rate of 105. No acute ischemia. Chest x-ray shows nothing acute by my interpretation. On reevaluation resting comfortably symptoms are gone. She feels this might be from the prednisone that she is on for her neck radiculopathy. She is going to stop this and follow-up as an outpatient. I have a low suspicion for acute coronary syndrome PE or dissection. Lab Data Labs: Laboratory Results - last 24 hr 03/04/21 03/04/21 00:11 00:11 WBC 10.5 RBC 4.47 Hgb 13.6 Hct 41.9 MCV 93.7 MCH 30.4 MCHC 32.5 RDW Std Deviation 47.2 H RDW Coeff of David 13.6 Plt Count 269 MPV 9.6 Immature Gran % (Auto) 0.600 Neut % (Auto) 69.5 Lymph % (Auto) 20.0 [place] % (Auto) 9.4 Eos % (Auto) 0.3 Baso % (Auto) 0.2 Absolute Neuts (auto) 7.3 Absolute Lymphs (auto) 2.09 Nucleated RBC % 0 Sodium 136 Potassium 4.1 Chloride 103 Carbon Dioxide 30.0 Anion Gap 3 L BUN 11 Creatinine 0.62 Estim Creat Clear Calc 119.64 Est GFR (MDRD) Af Amer 138 Est GFR (MDRD) Non-Af 114 BUN/Creatinine Ratio 17.7 Glucose 129 H Calcium 8.9 Troponin I < 0.015 Radiography Diagnostic Testing: Radiology Impression Chest X-Ray 03/04/21 00:00 IMPRESSION: Normal x-ray examination of the chest. Electronically Signed: Karri Tran DO at 2:17 EDT Tel , Service support , Discharge Plan Triage Chief Complaint: Chest Other ED Provider: Feliberto Vick Dx/Rx/DC Orders Clinical Impression: Chest pain at rest Instructions: ED Chest Pain, Uncertain Cause Prescriptions: No Action clonazepam 1 MG tablet 1 mg PO BID PRN PRN (Reason: Anxiety) RF: 0 cyclobenzaprine 10 MG tablet 10 mg PO TID PRN (Reason: Muscle Spasm) Qty: 20 RF: 0 Primary Care Provider: Blaise Wetzel Referrals: Blaise Wetzel DO [Primary Care Provider] - Disposition Disposition: Home, self care
--- NOTE | 2021-03-04 | RAD_ITS ---
STUDY: X-RAY CHEST REASON FOR EXAM: Female, 36 years old. chest pain TECHNIQUE: PA and lateral views of the chest. COMPARISON: None. FINDINGS: The lungs are clear and expanded. There is no demonstrated pleural abnormality. Normal size heart. Normal mediastinum and gala. Normal visualized pulmonary arteries. Normal visualized aortic arch and descending thoracic aorta. Normal visualized thoracic spine. Normal visualized ribs, clavicles, and shoulders. There is no demonstrated abnormality of the visualized soft tissue structures of the upper abdomen. RAD/Chest PA and Lateral IMPRESSION: Normal x-ray examination of the chest. Electronically Signed: Karri rTan DO at 2:17 EDT Tel , Service support ,
[2021-03-04 00:15] VITALS: BP 134/92; PULSE 99; RESP 16; O2SAT 100
[2021-03-04 00:19] LABS: Absolute Lymphocyte Count 2.09 X10^3/uL (0.83-4.51); Absolute Neutrophil Count 7.3 X10^3/uL (2.0-7.7); Basophil# 0.02 X10^3/uL; Basophil% 0.2 % (0-1); Eosinophil# 0.03 X10^3/uL; Eosinophils% 0.3 % (0-5); Hematocrit 41.9 % (37-47); Hemoglobin 13.6 g/dL (12.0-15.0); Lymphocyte # 2.09 X10^3/ul (0.83-4.51); Mean Corp Hgb Conc 32.5 g/dL (32-36); Mean Corpuscular Hgb 30.4 pg (27.0-32.0); Mean Corpuscular Volume 93.7 fL (81-99); Mean Platelet Vol. 9.6 fl (6.2-12.0); Monocyte# 0.98 X10^3/uL; Monocyte% 9.4 % (0-10); NRBC Flagged by Analyzer 0 % (0-5); Neutrophil # 7.29 X10^3/uL (2.7-7.7); Neutrophil % 69.5 % (47-70); Platelet Count 269 K/mm3 (150-450); RBC Distribution Width CV 13.6 % (11.6-14.6); RBC Distribution Width SD 47.2 fl (35.1-43.9); Red Blood Count 4.47 M/mm3 (4.2-5.4); White Blood Count 10.5 K/mm3 (4.4-11.0)
[2021-03-04 00:36] LABS: Anion Gap 3 (5-15); BUN 11 mg/dL (7-18); BUN/Creat Ratio 17.7 RATIO (10-20); Calcium,Total 8.9 mg/dL (8.5-10.1); Chloride 103 mmol/L (98-107); Creatinine, Serum 0.62 mg/dL (0.55-1.02); EST Glomerular Filtration Rate 114 mL/min (>60); Est Glom Filt Rate - Afr Amer 138 mL/min (>60); Estimated Creatinine Clearance 119.64 ml/min; Glucose 129 mg/dL (74-106); Potassium 4.1 mmol/L (3.5-5.1); Sodium Level 136 mmol/L (136-145)
[2021-03-04 01:41] VITALS: BP 121/73; PULSE 80; RESP 16; O2SAT 99
[2021-03-04 02:33] VITALS: BP 123/74; PULSE 75; RESP 16; O2SAT 98
== END 2021-03-04 02:34 | disposition home or self-care (01) ==
PROVIDERS: Emergency Provider Emergency Medicine; PCP Preventive Medicine Occupational Medicine
DX: R07.9 Chest pain, unspecified (principal); F17.210 Nicotine dependence, cigarettes, uncomplicated; M19.90 Unspecified osteoarthritis, unspecified site; J45.909 Unspecified asthma, uncomplicated; F41.9 Anxiety disorder, unspecified; Z79.899 Other long term (current) drug therapy
CPT/HCPCS: 71046; 80048; 84484; 85025; 93005; 99284; A4216

== ENCOUNTER 2021-06-10 07:42 | Emergency (ER) | payer OTHER, MEDICAID, SELFPAY ==
[2021-06-10 07:43] VITALS: BP 118/87; PULSE 101; RESP 16; TEMP 36.9; O2SAT 100; BMI 23.5
--- NOTE | 2021-06-10 09:08 | EDS_ITS ---
HPI History of Present Illness Chief Complaint: Laceration Informant: patient Onset/Context/Timing Onset: Yesterday Mechanism/Context: Fall Location: Left eyebrow Worsened by: Nothing Relieved by: Nothing Associated Symptoms Associated Symptoms: Negative for Parasthesias, Weakness, Inability to ambulate, Loss of consciousness and Amnesia Narrative Narrative: Patient presents after a fall that occurred last night. Patient states she fell forward and hit her head. Patient states she was feeling somewhat dizzy. Patient denies any loss of consciousness. Patient states she cut her left eyebrow. Patient denies any visual changes. Patient states her last tetanus was 2 years ago. Patient admits to nausea but denies any vomiting. Patient admits to some mild blurry vision but denies any other visual changes. Patient admits to a headache. Patient also admits to some pain in her neck and back. [facility] Medical History (Updated 06/10/21 @ 09:[address] Jose Carlos Kuhn DO) Arthritis Asthma Back pain Chest pain Knee pain Limb weakness Migraine Stomach ulcer Home Medications clonazepam 1 mg PO BID PRN PRN 04/21/19 [History Last Taken Unknown] cyclobenzaprine 10 mg PO TID PRN #20 tab 10/04/20 [Rx Last Taken Unknown] Allergy/AdvReac Type Severity Reaction Status Date / Time adhesive Allergy Rash Verified 06/10/21 07:46 amoxicillin Allergy Swelling Verified 06/10/21 07:46 erythromycin base Allergy Hives Verified 06/10/21 07:46 [Erythromycin Base] estradiol Allergy Anaphylaxis Verified 06/10/21 07:46 Penicillins [PCN] Allergy Anaphylaxis Verified 06/10/21 07:46 acetaminophen [From Tylenol] AdvReac Vomiting Verified 06/10/21 07:46 ferrous sulfate AdvReac Other Verified 06/10/21 07:46 Family History Other Breast cancer Hypertension Surgical History History of adenoidectomy History of appendectomy History of back surgery History of nasal surgery History of ovarian cystectomy History of placement of ear tubes Hx laparoscopic cholecystectomy Status post left breast lumpectomy Social History Smoking Status: Former smoker alcohol intake: never ROS ROS ED Constitutional Constitutional ED: Denies chills or fever(s) Eyes Eyes: Reports blurry vision ENT ENT ED: Denies rhinorrhea or sore throat Cardiovascular Cardiovascular: Denies chest pain or palpitations Respiratory/Chest Respiratory/Chest: Denies cough or dyspnea Gastrointestinal Gastrointestinal: Reports nausea; Denies vomiting Genitourinary Genitourinary ED: Denies dysuria or hematuria Musculoskeletal Musculoskeletal: Reports back pain and neck pain Integumentary Denies abscess or rash Neurologic Neurologic: Reports headache(s); Denies weakness Allergic/Immunologic Allergic/Immunologic ED: Denies mouth swelling or urticaria EXAM Physical Exam Const Vital Signs: 06/10/21 07:43 Temperature 98.5 F Temperature Source Temporal Pulse Rate 101 H Respiratory Rate 16 Blood Pressure 118/87 H Blood Pressure Mean 97 Pulse Ox 100 Oxygen Delivery Method Room Air Positive well nourished and well developed General Appearance ED: well developed Eyes PERRL and EOMs intact bilaterally Neck full ROM General: tenderness Back/Spine normal to inspection Back/Spine Narrative: There is mild cervical paraspinal muscle tenderness. There is no midline tenderness. There is no bony crepitance or step-off. There is good range of motion. Neuro oriented x3, CN's II-XII intact bilaterally, moves all extremities, no focal motor deficits and no sensory deficits noted Sensorium / Orientation: alert Psych mental status grossly normal Skin Skin Narrative: There is a 2.5 cm full-thickness V-shaped laceration over the left eyebrow. There is no bony crepitance or step-off. There is no foreign body noted. There is minimal bleeding noted. PROC Procedures Lacerations Left eyebrow: Length: 2.5 cm Depth: Sub Q Shape: Linear Prep: Sterile Conditions and Chlorhexadine Laceration repair: Lidocaine, Local, Skin sutures (5) and Subcutaneous sutures (2) Suture Information: Vicryl, Ethilon, Simple, 5-0 and 6-0 MDM MDM MDM Narrative Medical decision making narrative: The wound was cleaned. The wound was anesthetized with 1% plain lidocaine locally. The wound was closed with 2 simple interrupted #5-0 Vicryl subcutaneous sutures and 5 simple interrupted #6- 0 nylon sutures under sterile technique. Patient tolerated the procedure well. Bacitracin dressing was applied. Patient was given a dose of Sig[place] and Zofran here. Patient was instructed to keep the wound clean and dry. Patient was instructed to follow-up with her primary care physician in 5 days for wound recheck and suture removal. Patient understood and was agreeable with the plan. All questions were answered. Discharge Plan Triage Chief Complaint: Laceration ED Provider: Jose Carlos Kuhn Dx/Rx/DC Orders Clinical Impression: Laceration of left eyebrow Instructions: ED Laceration: All Closures, ED Scar Tips to Minimize Prescriptions: No Action clonazepam 1 MG tablet 1 mg PO BID PRN PRN (Reason: Anxiety) RF: 0 cyclobenzaprine 10 MG tablet 10 mg PO TID PRN (Reason: Muscle Spasm) Qty: 20 RF: 0 Stand Alone Forms: ED Work / School Excuse Primary Care Provider: Blaise Wetzel Referrals: Blaise Wetzel DO [Primary Care Provider] - 5 Days for suture removal Disposition Disposition: Home, Self Care
[2021-06-10] MEDS: Lidocaine 1% (20 ml mdv) 20 ML Vial INFILT (09:40)
[2021-06-10] MEDS: HYDROcodone Bitartrate/Apap 5/325 Tablet PO (09:56)
[2021-06-10] MEDS: Ondansetron ODT 4 MG Tablet PO (09:57)
[2021-06-10 10:01] VITALS: PULSE 79; RESP 16; O2SAT 99
--- NOTE | 2021-06-10 10:05 | ED.RN ---
THIS NURSE REVIEWED D/C INSTRUCTIONS WITH PT. PT VERBALIZED UNDERSTANDING OF INSTRUCTIONS. PT DENIES FURTHER NEEDS OR QUESITONS AT THIS TIME
== END 2021-06-10 10:07 | disposition home or self-care (01) ==
PROVIDERS: Emergency Provider Emergency Medicine; PCP Preventive Medicine Occupational Medicine
DX: S01.112A Laceration without foreign body of left eyelid and periocular area, initial encounter (principal); M19.90 Unspecified osteoarthritis, unspecified site; J45.909 Unspecified asthma, uncomplicated; Z87.891 Personal history of nicotine dependence; W18.30XA Fall on same level, unspecified, initial encounter; Y93.89 Activity, other specified; Y92.89 Other specified places as the place of occurrence of the external cause; Y99.8 Other external cause status
CPT/HCPCS: 12011; 99282

== ENCOUNTER 2021-06-10 13:48 | Emergency (ER) | payer OTHER, MEDICAID, SELFPAY ==
[2021-06-10 13:50] VITALS: BP 107/47; PULSE 103; RESP 17; TEMP 36.9; O2SAT 100; BMI 21.9
--- NOTE | 2021-06-10 14:57 | EDS_ITS ---
HPI History of Present Illness Chief Complaint: Headache Informant: patient Narrative Narrative: 36-year-old female presents the emergency room with headache. Patient states for the past week she has had a headache described as in her jaw periorbital region head neck upper back. States that she went to have a chiropractic examination on Monday. Last night at 2200 hours she states she got dizzy and fell down sustaining a laceration. She states that because she was dizzy she did not want to come to emergency and chose to wait until this morning to come. She received sutures. Patient states that she received [place] and a dose of nausea medication while here. She states she has been using anti- inflammatories at home but her headaches seems to intensify. She notes continued nausea and some light sensitivity. Worsening pain in the aforementioned areas. She states that she went and saw her family doctor earlier in the week and was given a prescription for Valium but it knocked me out for 13 hours they told not to take it. Patient does have a care plan. [facility] Medical History (Updated 06/10/21 @ 15:[address] Hernesto Milligan DO) Arthritis Asthma Back pain Chest pain Knee pain Limb weakness Migraine Stomach ulcer Home Medications clonazepam 1 mg PO BID PRN PRN 04/21/19 [History Last Taken Unknown] cyclobenzaprine 10 mg PO TID PRN #20 tab 10/04/20 [Rx Last Taken Unknown] Allergy/AdvReac Type Severity Reaction Status Date / Time adhesive Allergy Rash Verified 06/10/21 13:48 amoxicillin Allergy Swelling Verified 06/10/21 13:48 erythromycin base Allergy Hives Verified 06/10/21 13:48 [Erythromycin Base] estradiol Allergy Anaphylaxis Verified 06/10/21 13:48 Penicillins [PCN] Allergy Anaphylaxis Verified 06/10/21 13:48 acetaminophen [From Tylenol] AdvReac Vomiting Verified 06/10/21 13:48 ferrous sulfate AdvReac Other Verified 06/10/21 13:48 Family History Other Breast cancer Hypertension Surgical History History of adenoidectomy History of appendectomy History of back surgery History of nasal surgery History of ovarian cystectomy History of placement of ear tubes Hx laparoscopic cholecystectomy Status post left breast lumpectomy Social History Smoking Status: Current every day smoker tobacco type: cigarettes alcohol intake: never ROS ROS ED Constitutional Constitutional ED: Denies chills or weight loss Eyes Eyes: Denies change in vision or diplopia ENT ENT ED: Denies ear pain, rhinorrhea or sore throat Cardiovascular Cardiovascular: Denies chest pain, orthopnea, palpitations or racing heartbeat Respiratory/Chest Respiratory/Chest: Denies cough, dyspnea or orthopnea Gastrointestinal Gastrointestinal: Reports nausea; Denies abdominal pain, diarrhea or vomiting Genitourinary Genitourinary ED: Denies dysuria, hematuria or urinary frequency Musculoskeletal Musculoskeletal: Reports neck pain; Denies arthralgias or myalgias Integumentary Denies abscess or rash Neurologic Neurologic: Reports headache(s); Denies weakness Psychiatric Psychiatric: Denies anxiety, depression, suicidal ideation or suicidal thoughts Endocrine Endocrinology: Denies polydipsia, polyphagia or polyuria Allergic/Immunologic Allergic/Immunologic ED: Denies mouth swelling, tongue swelling or urticaria EXAM Physical Exam Const Vital Signs: 06/10/21 13:50 Temperature 98.4 F Temperature Source Temporal Pulse Rate 103 H Respiratory Rate 17 Blood Pressure 107/47 L Blood Pressure Mean 67 Pulse Ox 100 Oxygen Delivery Method Room Air Positive well nourished and well developed General Appearance ED: well developed HEENT Reports normocephalic, head/scalp atraumatic and moist mucous membranes HEENT Narrative: There is a sutured left eyebrow laceration. No noted malocclusion. No dental trauma. Midface stable. No palpable bony depressions. No hemotympanum. trauma Eyes PERRL and EOMs intact bilaterally Neck no lymphadenopathy, supple and no JVD Resp normal respiratory effort and clear to auscultation bilaterally Cardio regular rate, regular rhythm and no murmurs GI normal to inspection, nondistended, normoactive bowel sounds and non-tender Palpation: soft Back/Spine no CVA tenderness and normal ROM Extremity normal to inspection General Extremety ED: Negative for edema General Extremity: Negative for edema Neuro oriented x3 and CN's II-XII intact bilaterally Sensorium / Orientation: alert Motor Exam: strength 5/5 throughout Psych mental status grossly normal Mood & Affect: Negative for depressed or tearful Skin no rashes or lesions noted and no wounds MDM MDM MDM Narrative Medical decision making narrative: CT the brain and cervical spine showed no acute process. Patient received a dose of Toradol. Clinically she most likely has a concussion on top of her already headache and facial pain that she was experiencing. She states she has nausea medication at home. Would recommend Tylenol or Motrin. She has an appointment upcoming with her primary care physician in 1 week for the sutures to be removed. Radiography Diagnostic Testing: Radiology Impression Brain CT 06/10/21 15:00 IMPRESSION: No acute intracranial process. Electronically Signed: Kelley Armendariz MD at 15:24 EDT Tel , Service support , Cervical Spine CT 06/10/21 15:00 IMPRESSION: Multilevel degenerative changes, as described above. Electronically Signed: Kelley Armendariz MD at 15:27 EDT Tel , Service support , Discharge Plan Triage Chief Complaint: Headache ED Provider: Hernesto Milligan Dx/Rx/DC Orders Clinical Impression: Headache, Contusion of face, Concussion Instructions: ED Concussion Prescriptions: No Action clonazepam 1 MG tablet 1 mg PO BID PRN PRN (Reason: Anxiety) RF: 0 cyclobenzaprine 10 MG tablet 10 mg PO TID PRN (Reason: Muscle Spasm) Qty: 20 RF: 0 Primary Care Provider: Blaise Wetzel Referrals: Blaise Wetzel DO [Primary Care Provider] - 1 Week Disposition Disposition: Home, Self Care
--- NOTE | 2021-06-10 15:00 | CT_ITS ---
STUDY: CT BRAIN WITHOUT CONTRAST REASON FOR EXAM: Female, 36 years old. Injury RADIATION DOSAGE (If Supplied By Facility): CTDIvol = ( 44.99 ) mGy, DLP = ( 779.24 ) mGycm TECHNIQUE: Transaxial CT imaging of the brain was performed without administration of intravenous contrast material. Individualized dose optimization techniques were used for this CT. COMPARISON: 04/22/2019 FINDINGS: There is mild left periorbital edema associated with subcutaneous air consistent with recent trauma. Normal calvarium. Normal size ventricles and extra-axial spaces for the patient''s age. Normal white matter tracts of the cerebral hemispheres. Normal basal ganglia and thalami. Normal brainstem. Normal cerebellum. There is no intracranial hemorrhage. There are no findings of an acute ischemic infarction. Normal visualized paranasal sinuses. CT/Brain/Head without Contrast IMPRESSION: No acute intracranial process. Electronically Signed: Kelley Armendariz MD at 15:24 EDT Tel , Service support ,
--- NOTE | 2021-06-10 15:00 | CT_ITS ---
STUDY: CT CERVICAL SPINE WITHOUT CONTRAST REASON FOR EXAM: Female, 36 years old. injury RADIATION DOSAGE (If Supplied By Facility): CTDIvol = ( 13.16 ) mGy, DLP = ( 289.13 ) mGycm TECHNIQUE: High resolution transaxial imaging was performed without contrast material. Sagittal and coronal images were reconstructed. Individualized dose optimization techniques were used for this CT. COMPARISON: None FINDINGS: Normal craniovertebral junction. There are degenerative changes of the anterior atlantoaxial articulation. Normal odontoid process. Normal cervical lordosis. Normal vertebral bodies and posterior osseous elements. C2-3: Normal endplates. Normal disc height and morphology. Normal central canal and intervertebral neuroforamina. C3-4: Normal endplates. Normal disc height and morphology. Normal central canal and intervertebral neuroforamina. C4-5: There is a posterior disc osteophyte. Normal central canal and intervertebral neuroforamina. C5-6: There is a posterior disc osteophyte associated with stenosis of the central canal and bilateral narrowing of the neuroforamina. C6-7: There is endplate spondylosis. Normal central canal and intervertebral neuroforamina. C7-T1: Normal endplates. Normal disc height and morphology. Normal central canal and intervertebral neuroforamina. Normal visualized soft tissue structures. CT/Spine Cervical without Contras IMPRESSION: Multilevel degenerative changes, as described above. Electronically Signed: Kelley Armendariz MD at 15:27 EDT Tel , Service support ,
[2021-06-10] MEDS: Ketorolac 60 MG/2 ML Vial IM (16:14)
== END 2021-06-10 16:19 | disposition home or self-care (01) ==
PROVIDERS: Emergency Provider Emergency Medicine; PCP Preventive Medicine Occupational Medicine
DX: S06.0X0A Concussion without loss of consciousness, initial encounter (principal); S00.83XA Contusion of other part of head, initial encounter; M19.90 Unspecified osteoarthritis, unspecified site; J45.909 Unspecified asthma, uncomplicated; F17.210 Nicotine dependence, cigarettes, uncomplicated; W18.30XA Fall on same level, unspecified, initial encounter; Y93.89 Activity, other specified; Y92.89 Other specified places as the place of occurrence of the external cause; Y99.8 Other external cause status
CPT/HCPCS: 70450; 72125; 96372; 99282; A4216

== ENCOUNTER 2022-02-23 01:25 | Emergency (ER) | payer MEDICAID, SELFPAY ==
[2022-02-23 01:26] VITALS: BP 108/79; PULSE 111; RESP 16; TEMP 36.4; O2SAT 99; BMI 24.5
--- NOTE | 2022-02-23 01:45 | RAD_ITS ---
STUDY: X-RAY - LEFT HAND, ATTENTION FINGER REASON FOR EXAM: Female, 37 years old. injury TECHNIQUE: 3 view(s) of the finger were obtained. COMPARISON: 06/26/2015. FINDINGS: Normal metacarpal head. Normal metacarpophalangeal joint. Normal proximal phalanx. There is a transverse fracture of the midshaft of the middle phalanx of the fourth digit.. Normal distal phalanx. Normal proximal interphalangeal joint. Normal distal interphalangeal joint. RAD/Finger(s) Min 2 Views IMPRESSION: Fracture of the midshaft of the middle phalanx of the fourth digit. Electronically Signed: John Youssef MD at 2:50 EDT ,
--- NOTE | 2022-02-23 02:40 | EDS_ITS ---
HPI History of Present Illness Chief Complaint: Laceration Informant: patient Narrative Narrative: 37-year-old female states that her finger was smashed in a door x2 tonight. She notes some bleeding and pain. She has a ring on the ring finger and is unable to get it off due to swelling. She states it is a very special ring that belonged to her aunt who passed and she does not wish to have it cut off. She would rather ice and elevate and see if it gets too painful. Tetanus Immunization: 5-10 years [facility] Medical History Arthritis Asthma Back pain Chest pain Knee pain Limb weakness Migraine Stomach ulcer Home Medications clonazepam 1 mg PO BID PRN PRN 04/21/19 [History Last Taken Unknown] cyclobenzaprine 10 mg PO TID PRN #20 tab 10/04/20 [Rx Last Taken Unknown] oxycodone 5 mg PO Q6H PRN 3 Days #12 cap 02/23/22 [Rx Last Taken Unknown] Allergy/AdvReac Type Severity Reaction Status Date / Time adhesive Allergy Rash Verified 02/23/22 01:28 amoxicillin Allergy Swelling Verified 02/23/22 01:28 erythromycin base Allergy Hives Verified 02/23/22 01:28 [Erythromycin Base] estradiol Allergy Anaphylaxis Verified 02/23/22 01:28 Penicillins [PCN] Allergy Anaphylaxis Verified 02/23/22 01:28 acetaminophen [From Tylenol] AdvReac Vomiting Verified 02/23/22 01:28 ferrous sulfate AdvReac Other Verified 02/23/22 01:28 Family History Other Breast cancer Hypertension Surgical History History of adenoidectomy History of appendectomy History of back surgery History of nasal surgery History of ovarian cystectomy History of placement of ear tubes Hx laparoscopic cholecystectomy Status post left breast lumpectomy Social History Smoking Status: Current every day smoker tobacco type: cigarettes alcohol intake: never ROS ROS ED Constitutional Constitutional ED: Denies chills or weight loss Eyes Eyes: Denies change in vision or diplopia ENT ENT ED: Denies ear pain, rhinorrhea or sore throat Cardiovascular Cardiovascular: Denies chest pain, orthopnea, palpitations or racing heartbeat Respiratory/Chest Respiratory/Chest: Denies cough, dyspnea or orthopnea Gastrointestinal Gastrointestinal: Denies abdominal pain, diarrhea, nausea or vomiting Genitourinary Genitourinary ED: Denies dysuria, hematuria or urinary frequency Musculoskeletal Musculoskeletal: Reports other Details: See HPI ; Denies arthralgias or myalgias Integumentary Reports Abrasions; Denies abscess or rash Neurologic Neurologic: Denies headache(s) or weakness Psychiatric Psychiatric: Denies anxiety, depression, suicidal ideation or suicidal thoughts Endocrine Endocrinology: Denies polydipsia, polyphagia or polyuria Allergic/Immunologic Allergic/Immunologic ED: Denies mouth swelling, tongue swelling or urticaria EXAM Physical Exam Const Vital Signs: 02/23/22 01:26 Temperature 97.6 F L Temperature Source Temporal Pulse Rate 111 H Respiratory Rate 16 Blood Pressure 108/79 Blood Pressure Mean 88 Pulse Ox 99 Oxygen Delivery Method Room Air Positive well nourished and well developed General Appearance ED: well developed HEENT Reports normocephalic, head/scalp atraumatic, TM's clear and moist mucous membra sagrario atraumatic Tympanic Membrane ED: Yes TM's clear Eyes PERRL and EOMs intact bilaterally Neck no lymphadenopathy, supple and no JVD Resp normal respiratory effort and clear to auscultation bilaterally Cardio regular rate, regular rhythm and no murmurs GI normal to inspection, nondistended, normoactive bowel sounds and non-tender Palpation: soft Back/Spine no CVA tenderness and normal ROM Extremity Extremity Narrative: The left ring finger demonstrates swelling at the PIP joint along the middle phalanx. There is a superficial abrasion on the dorsum of the middle phalanx. There is 1/2 cm skin avulsion to the volar surface. No active bleeding. Neurovascularly intact. Tendon function appears normal Neuro oriented x3 and CN's II-XII intact bilaterally Sensorium / Orientation: alert Motor Exam: strength 5/5 throughout Psych mental status grossly normal Mood & Affect: Negative for depressed or tearful Skin no rashes or lesions noted MDM MDM MDM Narrative Medical decision making narrative: My interpretation of the plain films of the finger x-ray is acute nondisplaced fracture. The small amount of skin that was remaining on the finger was cut off. Wound was cleansed and dressed with bacitracin. Finger splint applied and the patient received oxycodone for pain. Plan is follow-up with primary care 1 to 2 weeks Discharge Plan Triage Chief Complaint: Laceration ED Provider: Hernesto Milligan Dx/Rx/DC Orders Clinical Impression: Finger fracture, Avulsion of skin of finger Instructions: ED Fracture, Finger, Closed Prescriptions: New oxycodone 5 mg capsule 5 mg PO Q6H PRN (Reason: pain) 3 Days Qty: 12 RF: 0 No Action clonazepam 1 MG tablet 1 mg PO BID PRN PRN (Reason: Anxiety) RF: 0 cyclobenzaprine 10 MG tablet 10 mg PO TID PRN (Reason: Muscle Spasm) Qty: 20 RF: 0 Primary Care Provider: Blaise Wetzel Referrals: Blaise Wetzel DO [Primary Care Provider] - 1-2 Weeks Disposition Disposition: Home, Self Care
[2022-02-23] MEDS: oxyCODONE 5 MG Tablet 10 MG PO (02:50)
== END 2022-02-23 03:02 | disposition home or self-care (01) ==
PROVIDERS: Emergency Provider Emergency Medicine; PCP Preventive Medicine Occupational Medicine; Visit Provider Emergency Medicine
DX: S62.655A Nondisplaced fracture of middle phalanx of left ring finger, initial encounter for closed fracture (principal); W23.0XXA Caught, crushed, jammed, or pinched between moving objects, initial encounter; F17.210 Nicotine dependence, cigarettes, uncomplicated
CPT/HCPCS: 73140; 99283

== ENCOUNTER 2022-02-24 16:05 | Emergency (ER) | payer MEDICAID, SELFPAY ==
[2022-02-24 16:06] VITALS: BP 137/77; PULSE 117; RESP 15; TEMP 37.6; O2SAT 99; BMI 24.9
--- NOTE | 2022-02-24 16:35 | EX.ED.UPPERE ---
HPI History of Present Illness Chief Complaint: Upper Extremity Injury Informant: patient Occured/Mechanism Mechanism/Context: Yes crush Onset/Context/Timing Onset: Days Context: Gradual Onset Timing: Continuous Current Severity: Mild Maximum Severity: Moderate Associated Symptoms Associated Symptoms: Negative for Parasthesia, Weakness and Loss of Funtion Narrative Narrative: 37-year-old female [id number]. Was seen emergency department on the . Had a crush injury to her left ring finger. Was diagnosed with a nondisplaced fracture of the mid phalanx of her left ring finger. At that time they want to remove the ring it has sentimental value to her because her aunt just recently should she did not want them to take it off. The finger is now swollen she cannot get the ring off and came to have it removed. Prior similar symptoms: No Recent Illness/Hospitalization: No PFSH PFSH Medical History (Updated 02/24/22 @ 16:[address] Raoul Alexander MD) Arthritis Asthma Back pain Chest pain Knee pain Limb weakness Migraine Stomach ulcer Home Medications clonazepam 1 mg PO BID PRN PRN 04/21/19 [History Last Taken Unknown] cyclobenzaprine 10 mg PO TID PRN #20 tab 10/04/20 [Rx Last Taken Unknown] oxycodone 5 mg PO Q6H PRN 3 Days #12 cap 02/23/22 [Rx Last Taken Unknown] cephalexin 500 mg PO Q6 #40 cap 02/24/22 [Rx Last Taken Unknown] Allergy/AdvReac Type Severity Reaction Status Date / Time adhesive Allergy Rash Verified 02/24/22 16:08 amoxicillin Allergy Swelling Verified 02/24/22 16:08 erythromycin base Allergy Hives Verified 02/24/22 16:08 [Erythromycin Base] estradiol Allergy Anaphylaxis Verified 02/24/22 16:08 Penicillins [PCN] Allergy Anaphylaxis Verified 02/24/22 16:08 acetaminophen [From Tylenol] AdvReac Vomiting Verified 02/24/22 16:08 ferrous sulfate AdvReac Other Verified 02/24/22 16:08 Family History Other Breast cancer Hypertension Surgical History History of adenoidectomy History of appendectomy History of back surgery History of nasal surgery History of ovarian cystectomy History of placement of ear tubes Hx laparoscopic cholecystectomy Status post left breast lumpectomy Social History Smoking Status: Current every day smoker tobacco type: cigarettes alcohol intake: never ROS ROS ED ROS Narrative Denies recent illness. Review of Systems ROS Unobtainable: Denies due to encephalopathy Constitutional Constitutional ED: Denies fever(s) Eyes Eyes: Denies change in vision ENT ENT ED: Denies ear pain Cardiovascular Cardiovascular: Denies chest pain or palpitations Respiratory/Chest Respiratory/Chest: Denies cough or dyspnea Gastrointestinal Gastrointestinal: Denies abdominal pain, diarrhea, nausea or vomiting Genitourinary Genitourinary ED: Denies dysuria Musculoskeletal Musculoskeletal: Denies myalgias Integumentary Denies rash Neurologic Neurologic: Denies headache(s) Psychiatric Psychiatric: Denies depression Endocrine Endocrinology: Denies polyuria Hematologic/Lymphatic Hematologic/Lymphatic: Denies easy bruising Allergic/Immunologic Allergic/Immunologic ED: Denies urticaria EXAM Physical Exam Narrative Exam Narrative: 37-year-old female no acute distress. Vital signs stable. Afebrile. Does not look septic or toxic. HEENT exam unremarkable. Lungs are clear. Heart tachycardic no murmur. Abdomen soft nontender. Her left hand she has a small ring on the proximal aspect of her left ring finger. Distal to that the finger is swollen red there is a healing laceration. The swelling is too large for the ring to take it off at cut off. This is most likely swelling from the fracture and the ring itself however due to the laceration she will be started on Keflex for possible cellulitis. She has cap refill intact sensation to the tip of her finger. It is swollen and tender. Const Vital Signs: 02/24/22 16:06 Temperature 99.6 F H Temperature Source Temporal Pulse Rate 117 H Respiratory Rate 15 Blood Pressure 137/77 H Blood Pressure Mean 97 Pulse Ox 99 Oxygen Delivery Method Room Air Positive well nourished and well developed; Negative for obese, cachectic, contractures or unkempt General Appearance ED: well developed and NAD; Negative for unkempt, cachectic, contractures, cyanotic or diaphoretic Nutritional Appearance: Negative for cachectic or obese HEENT Reports moist mucous membranes normocephalic and atraumatic; Negative for trauma or tenderness Eyes PERRL and EOMs intact bilaterally Neck full ROM and supple General: Negative for tenderness Chest Wall inspection of chest normal and palpation of chest normal Resp normal respiratory effort and clear to auscultation bilaterally Auscultation: Negative for rales, rhonchi or wheezes Cardio regular rhythm, S1 normal heart sound, S2 normal heart sound and no murmurs; Negative for regular rate Rate: tachycardic GI non-tender, non-distended and no masses Auscultation: normoactive bowel sounds Palpation: soft; Negative for tender, guarding or rebound tenderness present Back/Spine no CVA tenderness General Back: Negative for CVA tenderness Cervical Spine: Negative for cervical spine tenderness Thoracic Spine / Upper Back: Negative for thoracic spinal tenderness Extremity normal to inspection and full ROM Extremity Narrative: Except left ring finger. Swollen. Tender. Healing laceration. Vomiting ring on which want to be cut off. Normal cap refill intact sensation. Neuro oriented x3 and moves all extremities Sensorium / Orientation: alert, oriented to person, oriented to place and oriented to time Motor Exam: strength 5/5 throughout Psych mental status grossly normal Appearance: Negative for unkempt Mood & Affect: Negative for depressed or tearful Skin Skin Narrative: Laceration healing. Lesions: no lesions Rashes: no rashes Trauma: laceration; Negative for no lacerations or abrasions or abrasion MDM MDM MDM Narrative Medical decision making narrative: Patient is a nondisplaced fracture of the mid phalanx left ring finger. She was seen yesterday. Did not want her ring removed at that time. The ring will be cut off today. Ice and elevate. She will be started on Keflex 4 times a day for 10 days. She knows to return if worse. Discharge Plan Triage Chief Complaint: Upper Extremity Injury ED Provider: Raoul Alexander Dx/Rx/DC Orders Clinical Impression: Nondisplaced fracture of phalanx of left ring finger, Laceration, Cellulitis Instructions: ED Cellulitis, ED Fracture, Finger, Closed Prescriptions: New cephalexin 500 mg capsule 500 mg PO Q6 Qty: 40 RF: 0 No Action clonazepam 1 MG tablet 1 mg PO BID PRN PRN (Reason: Anxiety) RF: 0 cyclobenzaprine 10 MG tablet 10 mg PO TID PRN (Reason: Muscle Spasm) Qty: 20 RF: 0 oxycodone 5 mg capsule 5 mg PO Q6H PRN (Reason: pain) 3 Days Qty: 12 RF: 0 Primary Care Provider: Blaise Wetzel Referrals: Blaise Wetzel DO [Primary Care Provider] - Activity Restrictions/Additional Instructions: Ice and elevate your hand to decrease pain and swelling. You have to get the swelling down Motrin for pain and swelling No jewelry on this hand until all the swelling is gone. I would not put any jewelry on the left ring finger for the next 2 months. Keflex 4 times a day for the next 10 days in case the finger is also infected. Follow-up to ensure this is improving or return if worse. Disposition Disposition: Home, Self Care
[2022-02-24] MEDS: Cephalexin 250 MG Capsule 500 MG PO (16:56)
== END 2022-02-24 16:59 | disposition home or self-care (01) ==
PROVIDERS: Emergency Provider Emergency Medicine; PCP Preventive Medicine Occupational Medicine; Visit Provider Emergency Medicine
DX: S62.655A Nondisplaced fracture of middle phalanx of left ring finger, initial encounter for closed fracture (principal); S61.215A Laceration without foreign body of left ring finger without damage to nail, initial encounter; X58.XXXA Exposure to other specified factors, initial encounter; L03.012 Cellulitis of left finger; F17.210 Nicotine dependence, cigarettes, uncomplicated
CPT/HCPCS: 99285

== ENCOUNTER 2022-03-17 22:57 | Emergency (ER) | payer MEDICAID, SELFPAY ==
[2022-03-17 22:59] VITALS: BP 131/75; PULSE 95; RESP 18; TEMP 36.7; O2SAT 97; BMI 24.7
--- NOTE | 2022-03-17 23:16 | RAD_ITS ---
STUDY: X-RAY - LEFT HAND REASON FOR EXAM: Female, 37 years old. pain TECHNIQUE: 3 view(s) of the hand. COMPARISON: None. FINDINGS: Normal radiocarpal articulation. Normal distal radioulnar joint. Normal visualized carpal bones. Normal carpal articulations Normal carpometacarpal articulation of the thumb. Normal second through fifth carpometacarpal joints. Normal metacarpi. Normal metacarpophalangeal joint of the thumb. Normal interphalangeal joint of the thumb. Normal proximal and distal phalanges of the thumb. Normal metacarpophalangeal joints of the second through fifth fingers. Normal proximal and distal interphalangeal joints of the second through fifth fingers. Periosteal bone formation is seen at the middle phalanx of the ring finger may represent osteomyelitis or healing fracture. The soft tissue structures are unremarkable. RAD/Hand Min 3 Views IMPRESSION: Periosteal bone formation is seen at the middle phalanx of the ring finger may represent osteomyelitis or healing fracture. Electronically Signed: Kenia Rob MD at 23:47 EDT ,
--- NOTE | 2022-03-17 23:17 | EDS_ITS ---
HPI History of Present Illness Chief Complaint: Upper Extremity Injury Narrative Narrative: Patient is a 37-year-old female who states she was seen about 3 weeks ago secondary to smashing her left ring finger in a door. She states that time x-ray showed her finger was broken. She was placed in a metal finger splint and given prophylactic antibiotics and discharged home. Patient states she has bumped her left hand occasionally since that time but denies any direct trauma. She states that she is having increased pain to the area and has not seen orthopedics yet for follow-up and therefore comes in for evaluation [facility] Medical History (Updated 03/18/22 @ 00:[address] Jasen Cobb, DO) Arthritis Asthma Back pain Chest pain Knee pain Limb weakness Migraine Stomach ulcer Home Medications clonazepam 1 mg PO BID PRN PRN 04/21/19 [History Last Taken Unknown] cyclobenzaprine 10 mg PO TID PRN #20 tab 10/04/20 [Rx Last Taken Unknown] oxycodone 5 mg PO Q6H PRN 3 Days #12 cap 02/23/22 [Rx Last Taken Unknown] cephalexin 500 mg PO Q6 #40 cap 02/24/22 [Rx Last Taken Unknown] oxycodone 5 mg PO Q6H PRN 3 Days #12 cap 03/18/22 [Rx Last Taken Unknown] Allergy/AdvReac Type Severity Reaction Status Date / Time adhesive Allergy Rash Verified 03/17/22 23:01 amoxicillin Allergy Swelling Verified 03/17/22 23:01 erythromycin base Allergy Hives Verified 03/17/22 23:01 [Erythromycin Base] estradiol Allergy Anaphylaxis Verified 03/17/22 23:01 Penicillins [PCN] Allergy Anaphylaxis Verified 03/17/22 23:01 acetaminophen [From Tylenol] AdvReac Vomiting Verified 03/17/22 23:01 ferrous sulfate AdvReac Other Verified 03/17/22 23:01 Family History Other Breast cancer Hypertension Surgical History History of adenoidectomy History of appendectomy History of back surgery History of nasal surgery History of ovarian cystectomy History of placement of ear tubes Hx laparoscopic cholecystectomy Status post left breast lumpectomy Social History Smoking Status: Current every day smoker tobacco type: cigarettes alcohol intake: never ROS ROS ED Constitutional Constitutional ED: Denies chills or fever(s) ENT ENT ED: Denies sore throat Cardiovascular Cardiovascular: Denies chest pain Respiratory/Chest Respiratory/Chest: Denies cough or dyspnea Gastrointestinal Gastrointestinal: Denies abdominal pain, diarrhea, nausea or vomiting Genitourinary Genitourinary ED: Denies dysuria Musculoskeletal Musculoskeletal: Reports other Details: Positive left hand/fourth finger pain ; Denies myalgias Integumentary Denies rash Neurologic Neurologic: Denies headache(s), paresthesias or weakness Hematologic/Lymphatic Hematologic/Lymphatic: Denies easy bleeding or easy bruising EXAM Physical Exam Const Vital Signs: 03/17/22 22:59 Temperature 98.0 F Temperature Source Temporal Pulse Rate 95 Respiratory Rate 18 Blood Pressure 131/75 H Blood Pressure Mean 93 Pulse Ox 97 Oxygen Delivery Method Room Air Positive well nourished and well developed General Appearance ED: well developed Eyes PERRL and EOMs intact bilaterally Neck supple Resp normal respiratory effort and clear to auscultation bilaterally Cardio regular rate and regular rhythm Extremity Extremity Narrative: Left upper extremity is neurovascularly intact. There is mild soft tissue swelling to the proximal and mid phalanx of the fourth digit consistent with previous injury. There is no overlying erythema or warmth or lymphangitic streaking. No obvious bony deformity or joint effusion. No obvious ligamentous or tendon damage noted. Active range of motion is decreased secondary to pain. Capillary refill is less than 3-second. Remainder the exam is normal Neuro oriented x3 and CN's II-XII intact bilaterally Sensorium / Orientation: alert Psych mental status grossly normal Skin no rashes or lesions noted Lesions: no lesions Rashes: no rashes MDM MDM MDM Narrative Medical decision making narrative: Patient presented to the ER afebrile with no obvious signs of infection. She has a known fracture to the left fourth digit but as she states there has been increased pain and she has bumped it a few times and elect to repeat the x-ray. X-ray showed periosteal reaction consistent with a healing fracture. She does not have fever or overlying soft tissue changes or immunosuppression to suggest osteomyelitis and therefore this is not clinically correlate. At this time patient can continue to wear her middle finger splint and follow-up with orthopedics to discuss any need for further testing or treatment options. However as there is no obvious signs of infection by exam she is neurovascularly intact and the fracture is healing as it should at this point in time patient is safe for discharge Radiography Diagnostic Testing: X-ray of the left hand as interpreted by the emergency medicine physician shows periosteal reaction around the left fourth digit consistent with healing fracture Discharge Plan Triage Chief Complaint: Upper Extremity Injury ED Provider: Jasen Cobb Dx/Rx/DC Orders Clinical Impression: Finger fracture, left Instructions: ED Fracture, Finger, Closed Prescriptions: New oxycodone 5 mg capsule 5 mg PO Q6H PRN (Reason: pain) 3 Days Qty: 12 RF: 0 No Action clonazepam 1 MG tablet 1 mg PO BID PRN PRN (Reason: Anxiety) RF: 0 cyclobenzaprine 10 MG tablet 10 mg PO TID PRN (Reason: Muscle Spasm) Qty: 20 RF: 0 oxycodone 5 mg capsule 5 mg PO Q6H PRN (Reason: pain) 3 Days Qty: 12 RF: 0 cephalexin 500 mg capsule 500 mg PO Q6 Qty: 40 RF: 0 Primary Care Provider: Blaise Wetzel Referrals: Blaise Wetzel DO [Primary Care Provider] - Activity Restrictions/Additional Instructions: Please continue to wear your metal finger splint for stabilization and follow-up with orthopedics as previously directed Disposition Disposition: Home, Self Care
[2022-03-18 00:20] VITALS: BP 128/78; PULSE 90; RESP 16; O2SAT 96
== END 2022-03-18 00:20 | disposition home or self-care (01) ==
PROVIDERS: Emergency Provider Emergency Medicine; PCP Preventive Medicine Occupational Medicine; Visit Provider Emergency Medicine
DX: S62.605D Fracture of unspecified phalanx of left ring finger, subsequent encounter for fracture with routine healing (principal); W23.0XXD Caught, crushed, jammed, or pinched between moving objects, subsequent encounter; M19.90 Unspecified osteoarthritis, unspecified site; J45.909 Unspecified asthma, uncomplicated; Z79.899 Other long term (current) drug therapy; F17.210 Nicotine dependence, cigarettes, uncomplicated
CPT/HCPCS: 73130; 99283

== ENCOUNTER → 2022-04-15 | Outpatient (CLI) | payer MEDICAID, SELFPAY ==
--- NOTE | 2022-04-15 15:10 | MRI_ITS ---
STUDY: MR Knee W/O Contrast 04/15/2022 4:23 PM REASON FOR EXAM: Female, 37 years old. LEFT knee pain, decreased ROM and mobility TECHNIQUE: Standardized fat and water weighted pulse sequences were obtained in all 3 orthogonal planes. COMPARISON: xr Mar 22 2022 9:14am and xr Jan 09 2017 12:38am FINDINGS: Normal medial meniscus. Normal hyaline cartilage of the medial femorotibial compartment. Normal medial femoral condyle and tibial plateau. Normal medial collateral ligamentous complex (MCL). Normal distal semimembranosus, gracilis and semitendinosus tendons. Normal lateral meniscus. Normal hyaline cartilage of the lateral femorotibial compartment. Normal lateral femoral condyle and tibial plateau. Normal proximal tibiofibular articulation. There is a partial sprain of the lateral collateral (fibular) ligament. There is multiloculated fluid lateral along the proximal fibular head which may represent an abnormal extension of the popliteus tendon synovial recess. Normal biceps femoris tendon. Normal anterior cruciate ligament (ACL). Normal posterior cruciate ligament (PCL). Normal congruent patellofemoral articulation. Normal hyaline cartilage of the patellofemoral compartment. Normal medial and lateral patellar retinaculum. Normal quadriceps tendon. Normal patellar tendon. Normal Hoffa''s fat pad. There is no joint effusion. The soft tissues are unremarkable. The otherwise visualized osseous structures are unremarkable. MRI/Lower Ext Joint Only (Routine) IMPRESSION: There is a partial sprain of the lateral collateral (fibular) ligament. There is multiloculated fluid lateral along the proximal fibular head which may represent an abnormal extension of the popliteus tendon synovial recess. Electronically Signed: Kong Chester MD at 16:51 EDT ,
== END | disposition home or self-care (01) ==
LOC: MRI 15:10
PROVIDERS: PCP Preventive Medicine Occupational Medicine
DX: M25.562 Pain in left knee (principal); M25.362 Other instability, left knee
CPT/HCPCS: 73721

== ENCOUNTER 2022-04-16 00:40 | Emergency (ER) | payer MEDICAID, SELFPAY ==
[2022-04-16 00:41] VITALS: BP 129/84; PULSE 98; RESP 18; TEMP 36.6; O2SAT 99; BMI 24.5
[2022-04-16] MEDS: Ketorolac 30 MG/ML Syringe IM (01:17)
--- NOTE | 2022-04-16 02:19 | EX.ED.DYSGE1 ---
HPI History of Present Illness Chief Complaint: Lower Extremity Injury Narrative Narrative: Patient is a 37-year-old female who states she is got approximate 10-year history of intermittent left knee pain. She states she has been having this worked up recently and had an MRI just 1 to 2 days ago. She states that she was getting out of her father's truck today and she did strike the left knee causing a small cut. She states she did not think much of it and was not having any type of severe pain at the time. She states she was trying to sleep when she noticed that the knee was becoming slightly swollen and had increased pain. She states she tried [id number] medication with minimal symptom improvement and secondary to this presents to the ER for evaluation [facility] Medical History (Updated 04/16/22 @ 02:[address] Jasen Cobb, ) Acute maxillary sinusitis, unspecified Arthritis Arthritis Asthma Asthma Back pain Bladder spasms Chest pain Chest pain at rest Concussion Contusion of face Headache History of ovarian cyst Knee pain Laceration of left eyebrow Limb weakness Migraine Migraines Sinusitis Stomach ulcer Home Medications oxycodone 5 mg capsule 5 mg PO Q6H PRN pain 3 days #12 caps 03/18/22 [Rx Last Taken Unknown] clonazepam 2 mg tablet 2 mg PO BID 03/24/22 [History Last Taken Unknown] hydrocodone 7.5 mg-ibuprofen 200 mg tablet 1 tab PO 03/24/22 [History Last Taken Unknown] lamotrigine 100 mg tablet 100 mg PO 03/24/22 [History Last Taken Unknown] lamotrigine 25 mg tablet 25 mg PO 03/24/22 [History Last Taken Unknown] meloxicam 15 mg tablet 15 mg PO 03/24/22 [History Last Taken Unknown] oxycodone-acetaminophen 5 mg-325 mg tablet (Percocet) 1 tab PO Q6H PRN pain 3 days #12 tabs 04/16/22 [Rx Last Taken Unknown] Allergy/AdvReac Type Severity Reaction Status Date / Time adhesive Allergy Rash Verified 04/16/22 00:41 amoxicillin Allergy Swelling Verified 04/16/22 00:41 erythromycin base Allergy Hives Verified 04/16/22 00:41 [Erythromycin Base] estradiol Allergy Anaphylaxis Verified 04/16/22 00:41 Penicillins [PCN] Allergy Anaphylaxis Verified 04/16/22 00:41 acetaminophen [From Tylenol] AdvReac Vomiting Verified 04/16/22 00:41 ferrous sulfate AdvReac Other Verified 04/16/22 00:41 Family History Other Breast cancer Hypertension Surgical History History of adenoidectomy History of appendectomy History of back surgery History of nasal surgery History of ovarian cystectomy History of placement of ear tubes Hx laparoscopic cholecystectomy Status post left breast lumpectomy Social History Smoking Status: Current every day smoker tobacco type: cigarettes alcohol intake: never ROS ROS ED Constitutional Constitutional ED: Denies chills or fever(s) ENT ENT ED: Denies sore throat Cardiovascular Cardiovascular: Denies chest pain Respiratory/Chest Respiratory/Chest: Denies cough or dyspnea Gastrointestinal Gastrointestinal: Denies abdominal pain, diarrhea, nausea or vomiting Genitourinary Genitourinary ED: Denies dysuria Musculoskeletal Musculoskeletal: Reports arthralgias and other Details: Positive left knee pain ; Denies myalgias Integumentary Reports Abrasions; Denies rash Neurologic Neurologic: Denies headache(s) Hematologic/Lymphatic Hematologic/Lymphatic: Denies easy bleeding or easy bruising EXAM Physical Exam Const Vital Signs: 04/16/22 00:41 04/16/22 02:32 Temperature 97.9 F Temperature Source Temporal Pulse Rate 98 89 Respiratory Rate 18 15 Blood Pressure 129/84 H 99/69 Blood Pressure Mean 99 Pulse Ox 99 100 Oxygen Delivery Method Room Air Positive well nourished and well developed General Appearance ED: well developed Eyes PERRL and EOMs intact bilaterally Neck supple Resp normal respiratory effort and clear to auscultation bilaterally Cardio regular rate and regular rhythm Extremity Extremity Narrative: Left lower extremity is neurovascularly intact. There is mild soft tissue swelling noted to the anterior surface of the patella. No obvious joint effusion. No overlying erythema or warmth or ecchymosis. There is a small abrasion along the lateral aspect of the left knee consistent with recent trauma reported. However no surrounding soft tissue changes to suggest infection. Patellar tendon is intact and knee ligaments are stable. Active range of motion is decreased secondary to pain. No asymmetric edema or pitting edema of the bilateral lower extremities. Negative Homans' sign bilaterally as well Neuro oriented x3 and CN's II-XII intact bilaterally Sensorium / Orientation: alert Psych mental status grossly normal Skin no rashes or lesions noted MDM MDM MDM Narrative Medical decision making narrative: Patient presented to the ER with stable vitals. She did not have any physical exam findings concerning for septic joint or DVT. She recently had an MRI and based on this fact as well as her exam I do not feel there is need for any type of emergent repeat imaging study. The MRI was reviewed and does show a partial LCL sprain. The patient does have increased pain along the lateral aspect of the knee which would be consistent with this. At this time she was given Toradol which did seem to help reduce the pain as on reevaluation she was initially sleeping. Therefore this time as patient's recent MRI shows an LCL sprain which does fit the lateral pain she is experiencing now and there is no obvious signs of septic joint I do not feel there is need for work-up and patient is otherwise safe for discharge with symptomatic care Discharge Plan Triage Chief Complaint: Lower Extremity Injury ED Provider: Jasen Cobb Dx/Rx/DC Orders Clinical Impression: Sprain of LCL (lateral collateral ligament) of knee Instructions: ED Knee Sprain Prescriptions: New oxycodone-acetaminophen [Percocet] 5-325 mg tablet 1 tab PO Q6H PRN (Reason: pain) 3 Days Qty: 12 0RF No Action hydrocodone-ibuprofen 7.5-200 mg tablet 1 tab PO Label Comments: take 1 tablet by mouth every 6 hours if needed for pain meloxicam 15 mg tablet 15 mg PO clonazepam 2 mg tablet 2 mg PO BID Label Comments: take 1 tablet by mouth twice a day lamotrigine 25 mg tablet 25 mg PO Label Comments: TAKE 3 TABLETS BY MOUTH IN THE MORNING AND 100MG TABLET AT BEDTIME lamotrigine 100 mg tablet 100 mg PO oxycodone 5 mg capsule 5 mg PO Q6H PRN (Reason: pain) 3 Days Qty: 12 0RF Primary Care Provider: Blaise Wetzel Referrals: Blaise Wetzel DO [Primary Care Provider] - Disposition Disposition: Home, Self Care Discharge Date/Time: 04/16/22 02:33
[2022-04-16 02:32] VITALS: BP 99/69; PULSE 89; RESP 15; O2SAT 100
== END 2022-04-16 02:33 | disposition home or self-care (01) ==
PROVIDERS: Emergency Provider Emergency Medicine; PCP Preventive Medicine Occupational Medicine; Visit Provider Emergency Medicine
DX: S83.422A Sprain of lateral collateral ligament of left knee, initial encounter (principal); S80.212A Abrasion, left knee, initial encounter; M19.90 Unspecified osteoarthritis, unspecified site; F17.210 Nicotine dependence, cigarettes, uncomplicated; W22.09XA Striking against other stationary object, initial encounter
CPT/HCPCS: 96372; 99282

== ENCOUNTER 2022-05-22 07:32 | Emergency (ER) | payer MEDICAID, SELFPAY ==
[2022-05-22 07:34] VITALS: BP 100/68; PULSE 88; RESP 17; TEMP 36.7; O2SAT 100; BMI 25.3
[2022-05-22 07:37] VITALS: BP 100/68; PULSE 88; RESP 17; TEMP 36.7; O2SAT 100
--- NOTE | 2022-05-22 07:40 | RAD_ITS ---
STUDY: X-RAY CHEST REASON FOR EXAM: Female, 37 years old. Positive for Covid 19. TECHNIQUE: Single AP portable view of the chest. COMPARISON: 01/02/2021 FINDINGS: The lungs are clear and expanded. There is no demonstrated pleural abnormality. Normal size heart. Normal mediastinum and gala. Normal visualized pulmonary arteries. Normal visualized aortic arch and descending thoracic aorta. Normal visualized thoracic spine. Normal visualized ribs, clavicles, and shoulders. There is no demonstrated abnormality of the visualized soft tissue structures of the upper abdomen. RAD/Chest 1 View (Portable) IMPRESSION: Normal x-ray examination of the chest. Electronically Signed: Dileep Fisher MD at 8:19 EDT ,
[2022-05-22 07:44] VITALS: O2SAT 100
--- NOTE | 2022-05-22 08:12 | EDS_ITS ---
HPI HPI - URI History of Present Illness Chief Complaint: Cough Narrative Narrative: 37-year-old female presenting with a cough. She also has some posttussive gagging. Patient states she developed fever, chills, body aches, cough on Monday. She tested herself for COVID at home and was positive on Monday. She has no more fever but complains of persistent cough. She does have some rhinorrhea still. She is eating and drinking normally. She making normal urine and stool. ROS ROS ED Constitutional Constitutional ED: Reports chills ENT ENT ED: Reports rhinorrhea Respiratory/Chest Respiratory/Chest: Reports cough; Denies dyspnea or dyspnea on exertion Gastrointestinal Gastrointestinal: Denies abdominal pain or vomiting Genitourinary Genitourinary ED: Denies dysuria or hematuria Musculoskeletal Musculoskeletal: Denies arthralgias or back pain Integumentary Denies abscess Neurologic Neurologic: Denies headache(s) or paresthesias Psychiatric Psychiatric: Denies anxiety or depression [facility] Medical History Acute maxillary sinusitis, unspecified Arthritis Arthritis Asthma Asthma Back pain Bladder spasms Chest pain Chest pain at rest Concussion Contusion of face Headache History of ovarian cyst Knee pain Laceration of left eyebrow Limb weakness Migraine Migraines Sinusitis Stomach ulcer Home Medications oxycodone 5 mg capsule 5 mg PO Q6H PRN pain 3 days #12 caps 03/18/22 [Rx Last Taken Unknown] clonazepam 2 mg tablet 2 mg PO BID 03/24/22 [History Last Taken Unknown] hydrocodone 7.5 mg-ibuprofen 200 mg tablet 1 tab PO 03/24/22 [History Last Taken Unknown] lamotrigine 100 mg tablet 100 mg PO DAILY 03/24/22 [History Last Taken Unknown] lamotrigine 25 mg tablet 25 mg PO DAILY 03/24/22 [History Last Taken Unknown] meloxicam 15 mg tablet 15 mg PO DAILY 03/24/22 [History Last Taken Unknown] oxycodone-acetaminophen 5 mg-325 mg tablet (Percocet) 1 tab PO Q6H PRN pain 3 days #12 tabs 04/16/22 [Rx Last Taken Unknown] promethazine-DM 6.25 mg-15 mg/5 mL oral syrup 5 ml PO Q6H PRN cough #118 mL 05/22/22 [Rx Last Taken Unknown] Allergy/AdvReac Type Severity Reaction Status Date / Time adhesive Allergy Rash Verified 05/22/22 07:33 amoxicillin Allergy Swelling Verified 05/22/22 07:33 erythromycin base Allergy Hives Verified 05/22/22 07:33 [Erythromycin Base] estradiol Allergy Anaphylaxis Verified 05/22/22 07:33 Penicillins [PCN] Allergy Anaphylaxis Verified 05/22/22 07:33 acetaminophen [From Tylenol] AdvReac Vomiting Verified 05/22/22 07:33 ferrous sulfate AdvReac Constipatio Verified 05/22/22 07:33 n Family History Other Breast cancer Hypertension Surgical History History of adenoidectomy History of appendectomy History of back surgery History of nasal surgery History of ovarian cystectomy History of placement of ear tubes Hx laparoscopic cholecystectomy Status post left breast lumpectomy Social History Smoking Status: Current every day smoker tobacco type: cigarettes alcohol intake: never EXAM Physical Exam Const Vital Signs: 05/22/22 07:34 05/22/22 07:37 05/22/22 07:44 Temperature 98.1 F 98.1 F Temperature Source Temporal Temporal Pulse Rate 88 88 Respiratory Rate 17 17 Respiratory Effort Normal Non-Labored Respiratory Depth Normal Respiratory Pattern Normal Blood Pressure 100/68 100/68 Blood Pressure Mean 78 78 Pulse Ox 100 100 Oxygen Delivery Method Room Air Room Air Room Air Positive well nourished General Appearance ED: NAD; Negative for pallor HEENT Reports moist mucous membranes normocephalic Throat: posterior oropharynx normal Eyes PERRL and EOMs intact bilaterally Neck no lymphadenopathy Resp normal respiratory effort Auscultation: Negative for rales, rhonchi or wheezes Cardio Rate: regular rate Rhythm: regular rhythm Neuro oriented x3 and CN's II-XII intact bilaterally Sensorium / Orientation: alert Motor Exam: strength 5/5 throughout Psych mental status grossly normal Skin General Skin Exam: Negative for jaundice or pallor MDM MDM MDM Narrative Medical decision making narrative: Patient seen and evaluated for cough. She had COVID-19 this last week. She does not have any red flag signs or symptoms. Vital signs are normal. Her lungs are clear to auscultation. Heart rate regular rate and rhythm. She does have some residual nasal congestion which is likely causing her cough. The patient requested a chest x-ray which was provided. My interpretation of 1 view a portable chest is no acute process. Radiologist agree. Patient counseled she may have some residual cough. She states she is no longer smoking cigarettes. Return precautions discussed. Impression: 1. History of COVID-19 2. Cough 3. Rhinorrhea Lab Data Attestation: I reviewed the patient's lab results. Radiography Diagnostic Testing: Clinical Impression(s) from Imaging Studies Chest X-Ray 05/22/22 07:40 IMPRESSION: Normal x-ray examination of the chest. Electronically Signed: Dileep Fisher MD at 8:19 EDT , Discharge Plan Triage Chief Complaint: Cough ED Provider: Kulwinder Jerome Dx/Rx/DC Orders Instructions: Coronavirus Disease 2019 (COVID-19): Caring for Yourself or Others Prescriptions: New promethazine-DM 6.25-15 mg/5 mL syrup 5 ml PO Q6H PRN (Reason: cough) Qty: 118 0RF No Action hydrocodone-ibuprofen 7.5-200 mg tablet 1 tab PO Label Comments: take 1 tablet by mouth every 6 hours if needed for pain meloxicam 15 mg tablet 15 mg PO DAILY clonazepam 2 mg tablet 2 mg PO BID Label Comments: take 1 tablet by mouth twice a day lamotrigine 25 mg tablet 25 mg PO DAILY Label Comments: TAKE 3 TABLETS BY MOUTH IN THE MORNING AND 100MG TABLET AT BEDTIME lamotrigine 100 mg tablet 100 mg PO DAILY oxycodone 5 mg capsule 5 mg PO Q6H PRN (Reason: pain) 3 Days Qty: 12 0RF oxycodone-acetaminophen [Percocet] 5-325 mg tablet 1 tab PO Q6H PRN (Reason: pain) 3 Days Qty: 12 0RF Primary Care Provider: Blaise Wetzel Referrals: Blaise Wetzel DO [Primary Care Provider] - Disposition Disposition: Home, Self Care
[2022-05-22 08:32] VITALS: BP 124/66; PULSE 71; RESP 16; O2SAT 99
== END 2022-05-22 08:32 | disposition home or self-care (01) ==
PROVIDERS: Emergency Provider Student in an Organized Health Care Education/Training Program; PCP Preventive Medicine Occupational Medicine; Visit Provider Student in an Organized Health Care Education/Training Program
DX: R05.9 Cough, unspecified (principal); J34.89 Other specified disorders of nose and nasal sinuses; M19.90 Unspecified osteoarthritis, unspecified site; J45.909 Unspecified asthma, uncomplicated; F17.210 Nicotine dependence, cigarettes, uncomplicated; Z86.16 Personal history of COVID-19
CPT/HCPCS: 71045; 99282

== ENCOUNTER → 2022-05-25 | Outpatient (CLI) | payer MEDICAID, SELFPAY ==
[2022-05-25 13:31] LABS: Hemoglobin 12.3 g/dL (12.0-15.0); Mean Corp Hgb Conc 32.4 g/dL (32-36); Mean Corpuscular Hgb 30.5 pg (27.0-32.0); Mean Corpuscular Volume 94.3 fL (81-99); Mean Platelet Vol. 9.8 fl (6.2-12.0); Platelet Count 282 K/mm3 (150-450); RBC Distribution Width CV 14.6 % (11.6-14.6); RBC Distribution Width SD 51.5 fl (35.1-43.9); Red Blood Count 4.03 M/mm3 (4.2-5.4); White Blood Count 9.1 K/mm3 (4.4-11.0)
[2022-05-25 13:49] LABS: D-Dimer Quantitative (DVT/PE) 0.27 FEU/ug/m (0.27-0.49)
[2022-05-25 14:15] LABS: AST(SGOT) 17 U/L (15-37); Alanine Aminotransfer ALT/SGPT 24 U/L (13-56); Albumin, Serum 3.5 g/dL (3.2-5.0); Alkaline Phosphatase 62 U/L (45-117); Anion Gap 5 (5-15); BUN 8 mg/dL (7-18); BUN/Creat Ratio 11.7 RATIO (10-20); Calcium,Total 8.5 mg/dL (8.5-10.1); Chloride 110 mmol/L (98-107); Creatinine, Serum 0.68 mg/dL (0.55-1.02); EST Glomerular Filtration Rate 101 mL/min (>60); Est Glom Filt Rate - Afr Amer 123 mL/min (>60); Globulin 3.5 g/dL (2.2-4.2); Glucose 97 mg/dL (74-106); Potassium 4.2 mmol/L (3.5-5.1); Sodium Level 144 mmol/L (136-145)
== END | disposition home or self-care (01) ==
PROVIDERS: PCP Preventive Medicine Occupational Medicine; Visit Provider Nurse Practitioner Primary Care
DX: R05.9 Cough, unspecified (principal)
CPT/HCPCS: 36415; 80053; 85027; 85379

== ENCOUNTER → 2022-05-26 | Outpatient (CLI) | payer MEDICAID, SELFPAY ==
--- NOTE | 2022-05-26 12:48 | RAD_ITS ---
EXAM: XR CHEST, 2 VIEWS CLINICAL INDICATION: COUGH TECHNIQUE: Frontal and lateral views of the chest. This report was created using [employer] report generation technology. COMPARISON: 05/22/2022, 03/04/2021 and 11/02/2020. FINDINGS: LUNGS AND PLEURAL SPACES: Unremarkable. No consolidation or edema. No pneumothorax. No effusion. HEART: Unremarkable. Cardiac silhouette not enlarged. MEDIASTINUM: Central airways and mediastinal contour are unremarkable. BONES/JOINTS: Unremarkable. SOFT TISSUES: Unremarkable. RAD/Chest PA and Lateral IMPRESSION: No acute cardiopulmonary abnormality. Electronically Signed: Lázaro Gastelum MD at 1:12 EDT ,
== END | disposition home or self-care (01) ==
LOC: RAD 12:45
PROVIDERS: PCP Preventive Medicine Occupational Medicine; Referring Provider Nurse Practitioner Primary Care; Visit Provider Nurse Practitioner Primary Care
DX: R05.9 Cough, unspecified (principal)
CPT/HCPCS: 71046

== ENCOUNTER 2022-06-20 00:37 | Emergency (ER) | payer MEDICAID, SELFPAY ==
[2022-06-20 00:40] VITALS: BP 126/74; PULSE 103; RESP 20; TEMP 37.1; O2SAT 95; BMI 27.3
--- NOTE | 2022-06-20 01:15 | EDS_ITS ---
HPI History of Present Illness Chief Complaint: Abd Pain Narrative Narrative: Patient is a 37-year-old female with past medical history of asthma and migraine headache. She states that he has been having generalized abdominal pain and difficulty with bowel movements. She states that she went to an outside facility initially where she had an x-ray obtained which showed constipation. She states she was trying [id number] supplements such as MiraLAX with minimal symptom improvement so therefore she went to another outside facility where basic blood work and a CT scan were obtained. She states labs revealed no obvious findings and that a CT scan was then obtained which revealed no obstruction but just constipation. She states that they performed a digital rectal exam for possible impaction without much symptom improvement. She reports she is taking GoLytely and has had a few bowel movements but secondary to the pain comes in for evaluation [facility] Medical History Acute maxillary sinusitis, unspecified Arthritis Arthritis Asthma Asthma Back pain Bladder spasms Chest pain Chest pain at rest Concussion Contusion of face Headache History of ovarian cyst Knee pain Laceration of left eyebrow Limb weakness Migraine Migraines Sinusitis Stomach ulcer Home Medications clonazepam 2 mg tablet 2 mg PO BID PRN PRN Anxiety 03/24/22 [History Last Taken Unknown] lamotrigine 100 mg tablet 200 mg PO DAILY 03/24/22 [History Last Taken Unknown] Allergy/AdvReac Type Severity Reaction Status Date / Time adhesive Allergy Rash Verified 05/22/22 07:33 amoxicillin Allergy Swelling Verified 05/22/22 07:33 erythromycin base Allergy Hives Verified 05/22/22 07:33 [Erythromycin Base] estradiol Allergy Anaphylaxis Verified 05/22/22 07:33 Penicillins [PCN] Allergy Anaphylaxis Verified 05/22/22 07:33 acetaminophen [From Tylenol] AdvReac Vomiting Verified 05/22/22 07:33 ferrous sulfate AdvReac Constipatio Verified 05/22/22 07:33 n Family History Other Breast cancer Hypertension Surgical History History of adenoidectomy History of appendectomy History of back surgery History of nasal surgery History of ovarian cystectomy History of placement of ear tubes Hx laparoscopic cholecystectomy Status post left breast lumpectomy Social History Smoking Status: Current some day smoker tobacco type: cigarettes alcohol intake: never ROS ROS ED Constitutional Constitutional ED: Denies chills or fever(s) ENT ENT ED: Denies sore throat Cardiovascular Cardiovascular: Denies chest pain Respiratory/Chest Respiratory/Chest: Denies cough or dyspnea Gastrointestinal Gastrointestinal: Reports abdominal pain, constipation and nausea; Denies diarrhea or vomiting Genitourinary Genitourinary ED: Denies dysuria Musculoskeletal Musculoskeletal: Denies myalgias Integumentary Denies rash Neurologic Neurologic: Denies headache(s) Hematologic/Lymphatic Hematologic/Lymphatic: Denies easy bleeding or easy bruising EXAM Physical Exam Const Vital Signs: 06/20/22 00:40 06/20/22 01:26 Temperature 98.7 F Temperature Source Oral Pulse Rate 103 H 74 Respiratory Rate 20 H 16 Blood Pressure 126/74 H 120/74 Blood Pressure Mean 91 Pulse Ox 95 97 Oxygen Delivery Method Room Air Positive well nourished and well developed General Appearance ED: well developed Eyes PERRL and EOMs intact bilaterally General Eye ED: Negative for scleral icterus Neck supple Resp normal respiratory effort and clear to auscultation bilaterally Cardio regular rate and regular rhythm GI GI Narrative: Abdomen is soft and nondistended. There is bloating noted. Bowel sounds are slightly hypoactive. No voluntary guarding or rigidity. No pulsatile mass or fluid wave. There is mild diffuse pain on palpation. Palpation: soft Extremity normal to inspection Neuro oriented x3 and CN's II-XII intact bilaterally Sensorium / Orientation: alert Psych mental status grossly normal Skin no rashes or lesions noted General Skin Exam: Negative for jaundice MDM MDM MDM Narrative Medical decision making narrative: Patient presented to the ER with stable vitals and a soft nonsurgical abdomen. She reported she already had an acute abdominal series a abdominal CT scan laboratory work and a digital rectal exam prior to coming in to our facility this evening. She states all of these showed constipation but no other clinically significant finding. On top of that she reported that she is having small bowel movements. I informed the patient that I would not provide narcotics because that would only provide temporary relief and then ultimately worsen her underlying disease process. I did offer IV fluids and repeat laboratory studies. Patient states that as these were just done and showed no clinically significant findings that she does not want them repeated. Therefore I advised patient to continue her GoLytely keep yourself hydrated and be active. However at this time her exam does not suggest acute obstruction her vitals are stable and she had a complete work-up at the previous facility so she is otherwise safe for discharge Discharge Plan Triage Chief Complaint: Abd Pain ED Provider: Jasen Cobb Dx/Rx/DC Orders Clinical Impression: Constipation Instructions: ED Constipation (Adult) Prescriptions: No Action clonazepam 2 mg tablet 2 mg PO BID PRN PRN (Reason: Anxiety) Label Comments: take 1 tablet by mouth twice a day lamotrigine 100 mg tablet 200 mg PO DAILY Primary Care Provider: Blaise Wetzel Referrals: Blaise Wetzel DO [Primary Care Provider] - Activity Restrictions/Additional Instructions: Please continue to take the GoLytely and use a fiber supplement and keep yourself well-hydrated to help with constipation. He must also stay active and walk multiple times a day to help stimulate bowel movement. Disposition Disposition: Home, Self Care Discharge Date/Time: 06/20/22 01:31
[2022-06-20 01:26] VITALS: BP 120/74; PULSE 74; RESP 16; O2SAT 97
== END 2022-06-20 01:31 | disposition home or self-care (01) ==
PROVIDERS: Emergency Provider Emergency Medicine; PCP Preventive Medicine Occupational Medicine; Visit Provider Emergency Medicine
DX: K59.00 Constipation, unspecified (principal); J45.909 Unspecified asthma, uncomplicated; R10.9 Unspecified abdominal pain; M19.90 Unspecified osteoarthritis, unspecified site
CPT/HCPCS: 99282

== ENCOUNTER 2022-07-16 15:11 | Emergency (ER) | payer MEDICAID, SELFPAY ==
[2022-07-16 15:11] VITALS: BP 110/73; PULSE 106; RESP 16; TEMP 36.6; O2SAT 100; BMI 24.2
--- NOTE | 2022-07-16 15:47 | EDS_ITS ---
HPI History of Present Illness Chief Complaint: Lower Extremity Injury Narrative Narrative: 37-year-old female has had problems with her left knee for at least the last 6 months. She relates history that she was having problems with her left knee with diffuse pain that was worse with movement. Initially, she stated that she could not get an MRI, but she had 1 performed in April, which showed a ligament sprain laterally and that she had fluid on her knee. She stated that it was nonoperative, and she followed up with orthopedics [place] for her orthopedic surgeon for her back, Dr. Pitts. She states over the last 2 to 3 weeks has had increasing pain in her left knee. She can feel grinding and clicking and states that it locks up and she is unable to extend it at times. She has pain in the medial aspect, but states that it was a burning sensation that goes from lateral to medial also. She denies any trauma to the area. No fevers or chills. No change in skin color or redness. Sometimes she has pain behind her calf. [facility] Medical History Acute maxillary sinusitis, unspecified Arthritis Arthritis Asthma Asthma Back pain Bladder spasms Chest pain Chest pain at rest Concussion Contusion of face Headache History of ovarian cyst Knee pain Laceration of left eyebrow Limb weakness Migraine Migraines Sinusitis Stomach ulcer Home Medications clonazepam 2 mg tablet 2 mg PO BID PRN PRN Anxiety 03/24/22 [History Last Taken Unknown] lamotrigine 100 mg tablet 200 mg PO DAILY 03/24/22 [History Last Taken Unknown] aripiprazole 2 mg tablet mg 07/16/22 [History Last Taken Unknown] Allergy/AdvReac Type Severity Reaction Status Date / Time adhesive Allergy Rash Verified 07/16/22 15:13 amoxicillin Allergy Swelling Verified 07/16/22 15:13 erythromycin base Allergy Hives Verified 07/16/22 15:13 [Erythromycin Base] estradiol Allergy Anaphylaxis Verified 07/16/22 15:13 Penicillins [PCN] Allergy Anaphylaxis Verified 07/16/22 15:13 acetaminophen [From Tylenol] AdvReac Vomiting Verified 07/16/22 15:13 ferrous sulfate AdvReac Constipatio Verified 07/16/22 15:13 n Family History Other Breast cancer Hypertension Surgical History History of adenoidectomy History of appendectomy History of back surgery History of nasal surgery History of ovarian cystectomy History of placement of ear tubes Hx laparoscopic cholecystectomy Status post left breast lumpectomy Social History Smoking Status: Current some day smoker tobacco type: cigarettes alcohol intake: never ROS ROS ED ROS Narrative Constitutional: No fever, no chills. HEENT: No sore throat. No neck pain. No loss of vision. No rhinorrhea. Cardiovascular: No chest pain. No palpitations. No pedal edema. Respiratory: No cough, no shortness of breath. Abdominal: No abdominal pain. No nausea. No vomiting. Genitourinary: No dysuria. No hematuria. Musculoskeletal: No myalgias. Left knee problem, pain, grinding and clicking, with occasional locking. Neurologic: No headaches. No dizziness. No lightheadedness. Skin: No rash. No change in color. Psychiatric: No depression. No anxiety. EXAM Physical Exam Narrative Exam Narrative: Afebrile. Vital signs noted. HEENT: Normocephalic. Atraumatic. PERRL, EOMI. Neck soft and supple. No point tenderness or step off. Cardiovascular: Regular rate and rhythm. No murmurs, rubs, or gallops appreciated. Respiratory: No tachypnea. Lungs clear to auscultation bilaterally. Gastrointestinal: Abdomen soft, nontender, with normoactive bowel sounds. No rebound or guarding. Neurological: Awake. Alert. Nonfocal, nonlateralizing. Skin: No rash. Normal color. No pallor. Musculoskeletal: No pedal edema. Full range of motion extremities. Flexion and extension mechanism of left knee intact. Mild tenderness left medial meniscal area. Positive pain with varus maneuver. Const Vital Signs: 07/16/22 15:11 Temperature 98 F Temperature Source Temporal Pulse Rate 106 H Respiratory Rate 16 Blood Pressure 110/73 Blood Pressure Mean 85 Pulse Ox 100 Oxygen Delivery Method Room Air MDM MDM MDM Narrative Medical decision making narrative: I reviewed her MRI from April, approximately 4 months ago. There was normal meniscus cartilage and what appeared to be sprain of the lateral collateral ligament with a small amount of fluid near the fibular head. I will obtain x- rays at a baseline again to see if there is more fluid collection, but I do feel she has more of an internal derangement of her knee and that she would require outpatient MRI again. She will continue taking [id number] analgesics and follow-up with orthopedics. X-rays and interpreted by myself shows no evidence of fracture, no effusion. At this point in time, I feel she can be discharged safely home to follow-up with orthopedics. She states she sees Dr. Gauri Gonzales and the female physician assistant clinical nurse manager at the practice. She will continue to wear her knee sleeve. She will take [id number] medications as needed. Disposition is discharged home in stable condition. Radiography Diagnostic Testing: Clinical Impression(s) from Imaging Studies Knee X-Ray 07/16/22 15:50 IMPRESSION: 1. Normal examination of the left knee. 2. No fractures or dislocations. 3. No arthritic or degenerative changes. 4. No soft tissue abnormalities. Electronically Signed: John Garrido MD at 16:12 EDT , Discharge Plan Triage Chief Complaint: Lower Extremity Injury ED Provider: Bryan Bray Dx/Rx/DC Orders Clinical Impression: Left knee pain, Mechanical pain of left knee Instructions: ED Knee Pain of Uncertain Cause Prescriptions: No Action clonazepam 2 mg tablet 2 mg PO BID PRN PRN (Reason: Anxiety) Label Comments: take 1 tablet by mouth twice a day lamotrigine 100 mg tablet 200 mg PO DAILY aripiprazole 2 mg tablet Primary Care Provider: Lubna Irby Referrals: Lubna Irby DO [Primary Care Provider] - Lázaro Pitts DO [Med Staff - Active Staff] - As soon as possible Disposition Disposition: Home, Self Care
--- NOTE | 2022-07-16 15:50 | RAD_ITS ---
STUDY: COMPLETE LEFT KNEE SERIES OF 1559 HOURS ON 07/16/2022 REASON FOR EXAM: 37-year-old female with left knee pain. TECHNIQUE: 4 view(s) of the knee. COMPARISON: 03/22/2022, which demonstrated a tiny knee joint effusion. FINDINGS: No fractures or dislocations. No arthritic or degenerative changes. Balanced knee joint. Normal patellar flabella. No arthritic or degenerative changes. No joint effusion. No surrounding soft tissues. RAD/Knee 4 or More Views IMPRESSION: 1. Normal examination of the left knee. 2. No fractures or dislocations. 3. No arthritic or degenerative changes. 4. No soft tissue abnormalities. Electronically Signed: John Garrido MD at 16:12 EDT ,
--- NOTE | 2022-07-16 15:56 | CM.ED ---
SW Note Patient has a care plan. updated. Tatianna BOYD
== END 2022-07-16 16:51 | disposition home or self-care (01) ==
PROVIDERS: Emergency Provider Emergency Medicine; PCP Family Medicine; Visit Provider Emergency Medicine
DX: M25.562 Pain in left knee (principal); M19.90 Unspecified osteoarthritis, unspecified site; J45.909 Unspecified asthma, uncomplicated
CPT/HCPCS: 73564; 99282

== ENCOUNTER 2022-08-25 22:07 | Emergency (ER) | payer MEDICAID, SELFPAY ==
[2022-08-25 22:08] VITALS: BP 124/84; PULSE 77; RESP 16; TEMP 36.7; O2SAT 100; BMI 24.1
--- NOTE | 2022-08-25 22:52 | ED.VIS.GI ---
HPI HPI - GI History of Present Illness Chief Complaint: Abd Pain Detail of Chief Complaint: Left upper abdominal pain. Informant: patient Abdominal Pain/Flank Pain Onset: Month(s) Context: Gradual Onset Timing: Intermittent Quality: Aching and Cramping Current Severity: Mild Maximum Severity: Mild Nausea/Vomiting/Emesis GI Symptom: Negative for Nausea or Vomiting Diarrhea/Melena/Hematochezia GI Symptom: Positive for Diarrhea Stool Quality: Positive for Loose Severity: Mild Associated Symptoms Associated Symptoms: Negative for Dysuria, Frequency, Hematuria or Urgency Narrative Narrative: 37-year-old female history of seizures and irritable bowel syndrome. Chronic abdominal pain which she states she has had for years. Today it was more so in the left upper quadrant and she went to have it evaluated. She denies any nausea or vomiting. No fever or chills. No weight loss. No dysuria. Last menstrual period was about 2 days ago. States she is not . Denies any abdominal trauma. Prior similar symptoms: Yes Recent Illness/Hospitalization: No PFSH PFSH Medical History Acute maxillary sinusitis, unspecified Arthritis Arthritis Asthma Asthma Back pain Bladder spasms Chest pain Chest pain at rest Concussion Contusion of face Headache History of ovarian cyst Knee pain Laceration of left eyebrow Limb weakness Migraine Migraines Sinusitis Stomach ulcer Home Medications clonazepam 2 mg tablet 2 mg PO BID PRN PRN Anxiety 03/24/22 [History Last Taken Unknown] lamotrigine 100 mg tablet 200 mg PO DAILY 03/24/22 [History Last Taken Unknown] aripiprazole 2 mg tablet 1 mg PO DAILY 07/16/22 [History Last Taken Unknown] celecoxib 200 mg capsule (Celebrex) 200 mg PO DAILY Pain #30 caps 07/29/22 [Rx Last Taken Unknown] polymyxin B sulfate 10,000 unit-trimethoprim 1 mg/mL eye drops (Polytrim) 1 drp ophthalmic (eye) Q3H 7 days #10 mL 08/19/22 [Rx Last Taken Unknown] Allergy/AdvReac Type Severity Reaction Status Date / Time adhesive Allergy Rash Verified 08/25/22 22:10 amoxicillin Allergy Swelling Verified 08/25/22 22:10 erythromycin base Allergy Hives Verified 08/25/22 22:10 [Erythromycin Base] estradiol Allergy Anaphylaxis Verified 08/25/22 22:10 Penicillins [PCN] Allergy Anaphylaxis Verified 08/25/22 22:10 acetaminophen [From Tylenol] AdvReac Vomiting Verified 08/25/22 22:10 ferrous sulfate AdvReac Constipatio Verified 08/25/22 22:10 n Family History Other Breast cancer Hypertension Surgical History History of adenoidectomy History of appendectomy History of back surgery History of nasal surgery History of ovarian cystectomy History of placement of ear tubes Hx laparoscopic cholecystectomy Status post left breast lumpectomy Social History Smoking Status: Current some day smoker tobacco type: cigarettes alcohol intake: never ROS ROS ED Review of Systems ROS Unobtainable: Denies due to encephalopathy Constitutional Constitutional ED: Denies chills or fever(s) ENT ENT ED: Denies ear pain Cardiovascular Cardiovascular: Denies chest pain Respiratory/Chest Respiratory/Chest: Denies cough or dyspnea Gastrointestinal Gastrointestinal: Reports abdominal pain and diarrhea; Denies constipation, melena, nausea or vomiting Genitourinary Genitourinary ED: Denies dysuria or hematuria Musculoskeletal Musculoskeletal: Denies arthralgias Integumentary Denies abscess Neurologic Neurologic: Denies headache(s) Psychiatric Psychiatric: Denies anxiety Endocrine Endocrinology: Denies polydipsia Hematologic/Lymphatic Hematologic/Lymphatic: Denies easy bleeding Allergic/Immunologic Allergic/Immunologic ED: Denies mouth swelling or tongue swelling EXAM Physical Exam Narrative Exam Narrative: Acute distress. Vital signs stable afebrile. H EENT exam unremarkable. Neck nontender. No lymphadenopathy. Lungs clear to auscultation bilaterally. Heart regular rate and rhythm rate about 75 no murmur. Chest nontender. Abdomen soft nondistended normal bowel sounds no peritoneal signs. No signs of obstruction. No hernia or mass. I do not appreciate any significant organomegaly. She has mild tenderness in left upper quadrant. Moving all 4 extremities. Nontender no edema. Back nontender. Neurologically she is awake alert. Const Vital Signs: 08/25/22 22:08 Temperature 98.0 F Temperature Source Temporal Pulse Rate 77 Respiratory Rate 16 Blood Pressure 124/84 H Blood Pressure Mean 97 Pulse Ox 100 Oxygen Delivery Method Room Air Positive well nourished and well developed; Negative for obese, cachectic, contractures or unkempt General Appearance ED: well developed; Negative for unkempt, cachectic, contractures or pallor Nutritional Appearance: Negative for cachectic or obese HEENT Reports moist mucous membranes normocephalic and atraumatic; Negative for trauma or tenderness Eyes PERRL and EOMs intact bilaterally General Eye ED: Negative for pale conjunctiva or scleral icterus Neck no lymphadenopathy, supple and no JVD General: Negative for tenderness Carotids: Negative for other Lymph Lymphatic: Negative for other Resp normal respiratory effort and clear to auscultation bilaterally Effort and Inspection: Negative for respiratory distress Auscultation: Negative for rales, rhonchi or wheezes Cardio regular rate, regular rhythm, S1 normal heart sound, S2 normal heart sound and no murmurs Rate: Negative for bradycardia Rhythm: Negative for abnormal rhythm GI non-distended and no masses; Negative for non-tender Inspection: Negative for abdominal distention Auscultation: normoactive bowel sounds; Negative for hyperactive bowel sounds Palpation: soft and tender; Negative for guarding, rigid or hepatomegaly Back/Spine no CVA tenderness General Back: Negative for CVA tenderness Cervical Spine: Negative for cervical spine tenderness Thoracic Spine / Upper Back: Negative for thoracic spinal tenderness Lumbar Spine / Lower Back: Negative for lumbar spinal tenderness Extremity full ROM Neuro CN's II-XII intact bilaterally and moves all extremities Sensorium / Orientation: alert, oriented to person, oriented to place and oriented to time; Negative for orientation impaired, confused, lethargic or stuporous Motor Exam: strength 5/5 throughout Psych mental status grossly normal and thought process normal Appearance: Negative for unkempt Attitude: No agitated Mood & Affect: Negative for depressed, anxious or tearful Skin no wounds General Skin Exam: Negative for jaundice or pallor Lesions: no lesions Rashes: no rashes Trauma: Negative for abrasion Nails: Negative for discolored MDM MDM MDM Narrative Medical decision making narrative: 37-year-old female with chronic abdominal pain history of IBS. Complaining of left sided abdominal pain in the lower aspect of left upper quadrant. Otherwise exam is benign. Screening labs to be obtained. I do not think she needs imaging unless the labs show something significant. Repeat exam patient is doing well at 12:30 AM. Abdomen is benign. We went over her test results. Clinically there are no peritoneal signs or any significant tenderness. There is no signs of obstruction and she does not need any imaging. She will be discharged home. Follow-up with her primary care provider. Lab Data Attestation: I reviewed the patient's lab results. Lab results narrative: CBC shows a white count 8.8. H&H 11.8 and 36.8. Prior hemoglobin was 12.3. Platelets of 210. Serum test negative. Electrolytes unremarkable gap at 3 normal BUN and creatinine. Liver enzymes unremarkable. Lipase only 30. Labs: Laboratory Results - last 24 hr 08/25/22 08/25/22 08/25/22 23:08 23:08 23:08 WBC 8.8 RBC 3.77 L Hgb 11.8 L Hct 36.8 L MCV 97.6 MCH 31.3 MCHC 32.1 RDW Std Deviation 53.1 H RDW Coeff of David 14.8 H Plt Count 210 MPV 10.0 Immature Gran % (Auto) 1.000 H Neut % (Auto) 59.5 Lymph % (Auto) 30.3 Edwards % (Auto) 7.0 Eos % (Auto) 1.6 Baso % (Auto) 0.6 Absolute Neuts (auto) 5.2 Absolute Lymphs (auto) 2.65 Nucleated RBC % 0 Sodium 139 Potassium 4.3 Chloride 107 Carbon Dioxide 29.0 Anion Gap 3 L BUN 15 Creatinine 0.64 Estim Creat Clear Calc 114.76 Est GFR (MDRD) Af Amer 133 Est GFR (MDRD) Non-Af 110 BUN/Creatinine Ratio 23.4 H Glucose 101 Calcium 8.5 Total Bilirubin < 0.10 L AST 18 ALT 25 Alkaline Phosphatase 67 Total Protein 6.6 Albumin 3.2 Globulin 3.4 Albumin/Globulin Ratio 0.9 Lipase 30 L Serum , Qual NEGATIVE Discharge Plan Triage Chief Complaint: Abd Pain ED Provider: Raoul Alexander Dx/Rx/DC Orders Clinical Impression: Abdominal pain, History of IBS Instructions: Abdominal Pain Prescriptions: No Action clonazepam 2 mg tablet 2 mg PO BID PRN PRN (Reason: Anxiety) Label Comments: take 1 tablet by mouth twice a day lamotrigine 100 mg tablet 200 mg PO DAILY celecoxib [Celebrex] 200 mg capsule 200 mg PO DAILY Qty: 30 0RF Rx Instructions: Do not take in conjunction with other NSAIDs. Tylenol is okay. polymyxin B sulf-trimethoprim [Polytrim] 10,000 unit- 1 mg/mL drops 1 drp ophthalmic (eye) Q3H 7 Days Qty: 10 0RF Rx Instructions: while awake; do not exceed 6 doses in 24 hours aripiprazole 2 mg tablet 1 mg PO DAILY Primary Care Provider: Lubna Irby Referrals: Lubna Irby, [Primary Care Provider] - 3-5 Days Activity Restrictions/Additional Instructions: Tylenol and Motrin for pain. Follow-up with your doctor if not improving. Return if feeling worse. Your labs tonight were unremarkable. Disposition Disposition: Home, Self Care
[2022-08-25 23:29] LABS: Internal QC Validated? YES +Cl - CLEAR BKGD; Pregnancy, Serum, hCG Quali. NEGATIVE Negative
[2022-08-25 23:38] LABS: Absolute Lymphocyte Count 2.65 X10^3/uL (0.83-4.51); Absolute Neutrophil Count 5.2 X10^3/uL (2.0-7.7); Basophil# 0.05 X10^3/uL; Basophil% 0.6 % (0-1); Eosinophil# 0.14 X10^3/uL; Eosinophils% 1.6 % (0-5); Hematocrit 36.8 % (37-47); Hemoglobin 11.8 g/dL (12.0-15.0); Lymphocyte # 2.65 X10^3/ul (0.83-4.51); Lymphocyte % 30.3 % (19-41); Mean Corp Hgb Conc 32.1 g/dL (32-36); Mean Corpuscular Hgb 31.3 pg (27.0-32.0); Mean Corpuscular Volume 97.6 fL (81-99); Monocyte# 0.61 X10^3/uL; NRBC Flagged by Analyzer 0 % (0-5); Neutrophil # 5.22 X10^3/uL (2.7-7.7); Neutrophil % 59.5 % (47-70); Platelet Count 210 K/mm3 (150-450); RBC Distribution Width CV 14.8 % (11.6-14.6); RBC Distribution Width SD 53.1 fl (35.1-43.9); Red Blood Count 3.77 M/mm3 (4.2-5.4); White Blood Count 8.8 K/mm3 (4.4-11.0)
[2022-08-26 00:22] LABS: ALB/GLOB Ratio 0.9 RATIO (0.9-2.4); AST(SGOT) 18 U/L (15-37); Alanine Aminotransfer ALT/SGPT 25 U/L (13-56); Albumin, Serum 3.2 g/dL (3.2-5.0); Alkaline Phosphatase 67 U/L (45-117); Anion Gap 3 (5-15); BUN 15 mg/dL (7-18); BUN/Creat Ratio 23.4 RATIO (10-20); Calcium,Total 8.5 mg/dL (8.5-10.1); Chloride 107 mmol/L (98-107); Creatinine, Serum 0.64 mg/dL (0.55-1.02); EST Glomerular Filtration Rate 110 mL/min (>60); Est Glom Filt Rate - Afr Amer 133 mL/min (>60); Estimated Creatinine Clearance 114.76 ml/min; Globulin 3.4 g/dL (2.2-4.2); Glucose 101 mg/dL (74-106); Lipase 30 U/L (73-393); Potassium 4.3 mmol/L (3.5-5.1); Protein, Total 6.6 g/dL (6.4-8.2); Sodium Level 139 mmol/L (136-145); Total Bilirubin < 0.10 mg/dL (0.20-1.00)
[2022-08-26 00:43] VITALS: BP 102/64; PULSE 72; RESP 14; TEMP 36.8; O2SAT 97
== END 2022-08-26 00:44 | disposition home or self-care (01) ==
PROVIDERS: Emergency Provider Emergency Medicine; PCP Family Medicine; Visit Provider Emergency Medicine
DX: R10.9 Unspecified abdominal pain (principal); K58.9 Irritable bowel syndrome, unspecified; R19.7 Diarrhea, unspecified; G89.29 Other chronic pain
CPT/HCPCS: 80053; 83690; 84703; 85025; 99282; A4216

== ENCOUNTER 2022-08-30 16:08 | Emergency (ER) | payer MEDICAID, SELFPAY ==
[2022-08-30 16:09] VITALS: BP 114/79; PULSE 134; RESP 14; TEMP 37.1; O2SAT 95; BMI 24.2
--- NOTE | 2022-08-30 16:16 | EKG12_ITS ---
Test Reason : CP Blood Pressure : / mmHG Vent. Rate : 121 BPM Atrial Rate : 121 BPM P-R Int : 122 ms QRS Dur : 076 ms QT Int : 306 ms P-R-T Axes : 061 057 025 degrees QTc Int : 434 ms Sinus tachycardia Possible Left atrial enlargement Nonspecific ST and T wave abnormality Abnormal ECG Confirmed by DAJUAN LEON, JOURDAN ([id number]), web editor SULY ZEPEDA ([id number]) on 08/31/2022 9:24:52 AM Referred By: CRISTÓBAL Confirmed By:JOURDAN GRAFF MD
--- NOTE | 2022-08-30 16:49 | ED.RN ---
pt left, i dont feel like waiting any longer. this rn asked the pt if she would like to wait for 15 minutes and she said no.
== END 2022-08-30 16:48 | disposition left against medical advice (07) ==
LOC: ED 17:08
PROVIDERS: PCP Family Medicine
DX: Z53.21 Procedure and treatment not carried out due to patient leaving prior to being seen by health care provider (principal)
CPT/HCPCS: 93005

== ENCOUNTER → 2022-10-04 | Outpatient (CLI) | payer MEDICAID, SELFPAY | END | disposition home or self-care (01) | LOC: LABSPEC 10:02 | PROVIDERS: PCP Family Medicine; Visit Provider Physician Assistant Surgical | DX: M25.562 Pain in left knee (principal) | CPT/HCPCS: 87070; 87205 ==

== ENCOUNTER 2022-10-31 13:51 | Emergency (ER) | payer MEDICAID, SELFPAY ==
[2022-10-31 13:52] VITALS: BP 127/84; PULSE 85; RESP 16; TEMP 36.4; O2SAT 99; BMI 23.5
--- NOTE | 2022-10-31 14:24 | CM.ED ---
Social Work Note Referral Source: Case Find Referral Reason: EDCP SW provided MD Bray with a copy of patient's ED Care plan and reviewed goals with MD and patient's RN. SW available if needs arise. Eleni Canchola INSTRUCTIONAL COACH, [place]
--- NOTE | 2022-10-31 14:38 | RAD_ITS ---
STUDY: X-RAY - CERVICAL SPINE REASON FOR EXAM: Female, 37 years old. Left-sided neck pain. Left upper extremity pain and numbness and tingling. TECHNIQUE: 3 view(s) of the cervical spine were obtained. COMPARISON: Comparison is made with prior study dated 10/04/2020. FINDINGS: Normal anterior atlantoaxial articulation. Normal odontoid process. There is straightening of the normal cervical lordosis. Normal vertebral bodies and endplates. Marked degree of disc space narrowing and anterior spondylosis at the C5-C6 level. Normal visualized intervertebral neuroforamina. The soft tissue structures are unremarkable. RAD/Cerv Spine 2 or 3 Views IMPRESSION: Straightening of the normal cervical lordosis. Marked in degree of disc space narrowing and anterior spondylosis at the C5-C6 level. Electronically Signed: James Garcia MD at 14:56 EST ,
--- NOTE | 2022-10-31 15:21 | EX.ED.UPPERE ---
HPI History of Present Illness Chief Complaint: Upper Extremity Injury Narrative Narrative: 37-year-old female past medical history of chronic low back pain, states she had surgery so on her low back in the past, presents with left shoulder pain and some left-sided neck pain for the past 2 weeks. She states with certain movements it becomes a burning sensation, radiates to her left shoulder. She is right-hand dominant. She denies any trauma. No fevers or chills, no nausea or vomiting. She is taking anti-inflammatories without relief. She presents because of the pain and her left shoulder and left neck. [facility] Medical History Acute maxillary sinusitis, unspecified Arthritis Arthritis Asthma Asthma Back pain Bladder spasms Chest pain Chest pain at rest Concussion Contusion of face Headache History of ovarian cyst Knee pain Laceration of left eyebrow Limb weakness Migraine Migraines Sinusitis Stomach ulcer Home Medications clonazepam 2 mg tablet 2 mg PO BID PRN PRN Anxiety 03/24/22 [History Last Taken Unknown] lamotrigine 100 mg tablet 200 mg PO DAILY 03/24/22 [History Last Taken Unknown] aripiprazole 2 mg tablet 1 mg PO DAILY 07/16/22 [History Last Taken Unknown] celecoxib 200 mg capsule (Celebrex) 200 mg PO DAILY Pain #30 caps 07/29/22 [Rx Last Taken Unknown] Allergy/AdvReac Type Severity Reaction Status Date / Time adhesive Allergy Rash Verified 10/31/22 13:54 amoxicillin Allergy Swelling Verified 10/31/22 13:54 erythromycin base Allergy Hives Verified 10/31/22 13:54 [Erythromycin Base] estradiol Allergy Anaphylaxis Verified 10/31/22 13:54 Penicillins [PCN] Allergy Anaphylaxis Verified 10/31/22 13:54 acetaminophen [From Tylenol] AdvReac Vomiting Verified 10/31/22 13:54 ferrous sulfate AdvReac Constipatio Verified 10/31/22 13:54 n Family History Other Breast cancer Hypertension Surgical History History of adenoidectomy History of appendectomy History of back surgery History of nasal surgery History of ovarian cystectomy History of placement of ear tubes Hx laparoscopic cholecystectomy Status post left breast lumpectomy Social History Smoking Status: Current some day smoker tobacco type: cigarettes alcohol intake: never ROS ROS ED ROS Narrative Constitutional: No fever, no chills. HEENT: No sore throat. No neck pain. No loss of vision. No rhinorrhea. Left neck pain. Cardiovascular: No chest pain. No palpitations. No pedal edema. Respiratory: No cough, no shortness of breath. Abdominal: No abdominal pain. No nausea. No vomiting. Genitourinary: No dysuria. No hematuria. Musculoskeletal: No myalgias. Left shoulder arthralgias. Neurologic: No headaches. No dizziness. No lightheadedness. Skin: No rash. No change in color. Psychiatric: No depression. No anxiety. EXAM Physical Exam Narrative Exam Narrative: Afebrile. Vital signs noted. HEENT: Normocephalic. Atraumatic. PERRL, EOMI. Neck soft and supple. No point tenderness or step off. Mild tenderness palpation left paraspinal muscles of cervical region. Cardiovascular: Regular rate and rhythm. No murmurs, rubs, or gallops appreciated. Respiratory: No tachypnea. Lungs clear to auscultation bilaterally. Gastrointestinal: Abdomen soft, nontender, with normoactive bowel sounds. No rebound or guarding. Neurological: Awake. Alert. Nonfocal, nonlateralizing. Skin: No rash. Normal color. No pallor. Musculoskeletal: No pedal edema. Full range of motion extremities. No evidence of clinical dislocation left shoulder. Range of motion limited secondary to pain. Neurovascular intact distally with palpable radial pulse. Const Vital Signs: 10/31/22 13:52 Temperature 97.5 F L Temperature Source Temporal Pulse Rate 85 Respiratory Rate 16 Blood Pressure 127/84 H Blood Pressure Mean 98 Pulse Ox 99 Oxygen Delivery Method Room Air MDM MDM MDM Narrative Medical decision making narrative: Reviewed the patient's prior outpatient records. She does have history of chronic low back pain. I was informed by the RN that she has a care plan and went over it with case management. She is not to receive opioids or synthetic opioids. I did obtain x-rays of her cervical spine which I interpreted as disc space narrowing. I reviewed the radiology report and they confirm that there is disc space narrowing and spondylolysis at C5-C6. I do feel that this is where her left shoulder pain may be coming from. She will follow-up with Dr. Varun Gonzales, her orthopedic surgeon who she states perform surgery on her low back. Initially I offered her Flexeril but she states that does not work. I also offered her an intramuscular injection of Toradol, but she declined, stating that she would prefer to follow-up with her primary care provider and Dr. Marcello mclain. I feel she can be discharged safely home with follow-up. Return instructions to the emergency department were reviewed. Disposition is discharged home in stable condition. Radiography Diagnostic Testing: Clinical Impression(s) from Imaging Studies Cervical Spine X-Ray 10/31/22 14:38 IMPRESSION: Straightening of the normal cervical lordosis. Marked in degree of disc space narrowing and anterior spondylosis at the C5-C6 level. Electronically Signed: James Garcia MD at 14:56 EST , Discharge Plan Triage Chief Complaint: Upper Extremity Injury ED Provider: Bryan Bray Dx/Rx/DC Orders Clinical Impression: Left shoulder pain, Cervical radiculopathy Instructions: ED Neck Pain, ED Radiculopathy, Cervical Prescriptions: No Action clonazepam 2 mg tablet 2 mg PO BID PRN PRN (Reason: Anxiety) Label Comments: take 1 tablet by mouth twice a day lamotrigine 100 mg tablet 200 mg PO DAILY celecoxib [Celebrex] 200 mg capsule 200 mg PO DAILY Qty: 30 0RF Rx Instructions: Do not take in conjunction with other NSAIDs. Tylenol is okay. aripiprazole 2 mg tablet 1 mg PO DAILY Primary Care Provider: Lubna Irby Referrals: Lubna Irby, [Primary Care Provider] - As soon as possible Lázaro Pitts DO [Med Staff - Active Staff] - As soon as possible Disposition Disposition: Home, Self Care
[2022-10-31 15:38] VITALS: RESP 16
== END 2022-10-31 15:38 | disposition home or self-care (01) ==
PROVIDERS: Emergency Provider Emergency Medicine; PCP Family Medicine; Visit Provider Emergency Medicine
DX: M47.22 Other spondylosis with radiculopathy, cervical region (principal); M25.512 Pain in left shoulder; J45.909 Unspecified asthma, uncomplicated
CPT/HCPCS: 72040; 99282

== ENCOUNTER → 2022-11-26 | Outpatient (CLI) | payer MEDICAID, SELFPAY ==
--- NOTE | 2022-11-26 08:52 | MRI_ITS ---
HISTORY: SPINAL STENOSIS, CERVICAL REGION. TECHNIQUE: Multiplanar and multisequence MR images of the cervical spine were obtained without contrast. 265 images. COMPARISON: XR 10/31/2022, CT 06-29. FINDINGS: VERTEBRAE: Vertebral body heights maintained. Mild degenerative bone marrow endplate changes of C2-C3 through C5-6. VERTEBRAL ALIGNMENT: No anterior or posterior subluxation. SPINAL CORD: Cervical cord signal and morphology within normal limits. SOFT TISSUES: No prevertebral fluid collection. INTERVERTEBRAL DISCS: C2-3: Minimal disc bulge with minimal narrowing of the thecal sac. No significant foraminal narrowing. C3-4: Minimal disc bulge with very mild central canal stenosis. No significant foraminal narrowing. C4-5: Mild disc bulge eccentric to the left with uncovertebral and facet arthropathy abutting the left traversing nerve root and resulting in mild-moderate central canal stenosis, mild-moderate left, and mild right foraminal narrowing. C5-6: Mild posterior disc bulge osteophyte complex with uncovertebral and facet arthropathy resulting in mild-moderate central canal stenosis with moderate bilateral foraminal narrowing. C6-7, C7-T1: No significant posterior disc protrusion, central canal stenosis, or foraminal narrowing. MRI/Spine Cervical (Routine) IMPRESSION: Multilevel degenerative disc disease resulting in mild-moderate spinal canal stenosis and foraminal narrowing as above. Electronically Signed: Oriana Antony MD at 8:54 EST ,
== END | disposition home or self-care (01) ==
LOC: MRI 08:40
PROVIDERS: PCP Family Medicine; Visit Provider Orthopaedic Surgery
DX: M48.02 Spinal stenosis, cervical region (principal); M47.22 Other spondylosis with radiculopathy, cervical region; M50.30 Other cervical disc degeneration, unspecified cervical region
CPT/HCPCS: 72141

== ENCOUNTER 2022-11-27 16:44 | Emergency (ER) | payer MEDICAID, SELFPAY ==
[2022-11-27 16:45] VITALS: BP 122/75; PULSE 101; RESP 16; TEMP 36; O2SAT 99; BMI 24.9
--- NOTE | 2022-11-27 18:27 | EX.ED.DYSGE1 ---
HPI <KEE Lomeli - Last Filed: 11/27/22 18:57> History of Present Illness Chief Complaint: Numb/Ting Narrative Narrative: 37-year-old female presents with neck and left arm pain. This is a chronic issue. 6 months ago she started getting numbness in her left thumb and index finger. About 3 weeks ago she started having pain radiating from the neck down the arm into these digits. She was seeing Dr. Ray at the spine center and had an MRI yesterday which showed some lower cervical narrowing and is scheduled to see the doctor again in 4 days. She is having increased pain in the same distribution today. No new injury or fall. No new weakness, numbness or tingling. She is using a TENS unit and seeing the chiropractor for pain control. She states ibuprofen did not really help so she stopped taking it. [facility] <KEE Lomeli - Last Filed: 11/27/22 18:57> [facility] Medical History Acute maxillary sinusitis, unspecified Arthritis Arthritis Asthma Asthma Back pain Bladder spasms Chest pain Chest pain at rest Concussion Contusion of face Headache History of ovarian cyst Knee pain Laceration of left eyebrow Limb weakness Migraine Migraines Sinusitis Stomach ulcer Home Medications clonazepam 2 mg tablet 2 mg PO BID PRN PRN Anxiety 03/24/22 [History Last Taken Unknown] lamotrigine 100 mg tablet 200 mg PO DAILY 03/24/22 [History Last Taken Unknown] aripiprazole 2 mg tablet 1 mg PO DAILY 07/16/22 [History Last Taken Unknown] hydrocodone-acetaminophen 5-325mg 5mg-325mg 1 tab PO Q6H PRN PRN Pain 3 days #12 TABLETS 11/27/22 [Rx Last Taken Unknown] metoprolol succinate 25 mg capsule sprinkle, ext. release 24 hr (Kapspargo Sprinkle) 25 mg PO DAILY 11/27/22 [History Last Taken Unknown] ondansetron 4 mg disintegrating tablet 4 mg PO Q6H PRN nausea and vomiting #12 tabs 11/27/22 [Rx Last Taken Unknown] Allergy/AdvReac Type Severity Reaction Status Date / Time adhesive Allergy Rash Verified 10/31/22 13:54 amoxicillin Allergy Swelling Verified 10/31/22 13:54 erythromycin base Allergy Hives Verified 10/31/22 13:54 [Erythromycin Base] estradiol Allergy Anaphylaxis Verified 10/31/22 13:54 Penicillins [PCN] Allergy Anaphylaxis Verified 10/31/22 13:54 acetaminophen [From Tylenol] AdvReac Vomiting Verified 10/31/22 13:54 ferrous sulfate AdvReac Constipatio Verified 10/31/22 13:54 n Family History Other Breast cancer Hypertension Surgical History History of adenoidectomy History of appendectomy History of back surgery History of nasal surgery History of ovarian cystectomy History of placement of ear tubes Hx laparoscopic cholecystectomy Status post left breast lumpectomy Social History Smoking Status: Current some day smoker tobacco type: cigarettes alcohol intake: never ROS <KEE Lomeli - Last Filed: 11/27/22 18:57> ROS ED ROS Narrative Constitutional: Negative for fever, chills, malaise. ENT: Negative for sore throat, ear pain, rhinorrhea. CVS: Negative for palpitations, chest pain, syncope. Respiratory: Negative for shortness of breath, cough. : Negative for dysuria, hematuria or frequency. Neuro: Negative for headache, motor/sensory dysfunction. Skin: Negative for rash, abscess, or wound. Musc: Positive for left thumb pain. No swelling or trauma. Heme: Negative for easy bruising, bleeding, lymphadenopathy. EXAM <KEE Lomeli - Last Filed: 11/27/22 18:57> Physical Exam Const Vital Signs: 11/27/22 16:45 Temperature 96.8 F L Temperature Source Temporal Pulse Rate 101 H Respiratory Rate 16 Blood Pressure 122/75 H Blood Pressure Mean 90 Pulse Ox 99 Oxygen Delivery Method Room Air <Dr. Elzbieta Guidry DO - Last Filed: 11/28/22 01:04> Physical Exam Const Vital Signs: 11/27/22 16:45 Temperature 96.8 F L Temperature Source Temporal Pulse Rate 101 H Respiratory Rate 16 Blood Pressure 122/75 H Blood Pressure Mean 90 Pulse Ox 99 Oxygen Delivery Method Room Air MDM <KEE Lomeli - Last Filed: 11/27/22 18:57> [facility] Narrative Medical decision making narrative: Patient presents with increased pain in her her left upper extremity. This has been a chronic issue she is seeing a spinal specialist for. Pain is in the same distribution as before. She has reproducible tenderness of the left trapezius and around the left elbow. There is slight decrease sensation to light touch in the left thumb and index finger which is chronic, otherwise normal MSPs. Compartments are soft. There is no erythema or signs of infection. I reviewed her MRI of the cervical spine on 11/26/2022. She has multilevel degenerative disc disease resulting in mild/moderate spinal canal stenosis mainly at C4-C5 and C5-C6. This makes sense with the distribution of her pain and tingling into the thumb and index finger. There is no cord compression. There is no indication for further emergent imaging today. She was treated with Toradol and Barberton with improvement. She did not want to be on steroids so I prescribed a short course of Barberton for home. She is following up with the spine center and has nerve conduction tests arranged. She was discharged in stable condition. External records reviewed: MRI of cervical spine on 11/26/2022?see above <Dr. Elzbieta Guidry, DO - Last Filed: 11/28/22 01:04> [facility] Treatment and Re-Evaluation Narrative: I have personally performed a face to face assessment of the patient and have reviewed the BUSHRA Note. I performed a substantive portion of the visit including all aspects of the following. My velez findings include: History is patient has had numbness and tingling of her left thumb and index finger that is now progressed to increased pain. She has taken NSAIDs with no relief. Denies any new trauma or injury. Denies any weakness is not dropping things. Recently had an MRI which was independently reviewed. Patient does have mild to moderate spinal condyle stenosis mainly at C4/C5 and C5/C6 which is consistent with the distribution. On exam she also has tenderness palpation over her elbow that reproduces some of her pain. Patient is treated with Toradol and then Barberton in the ER. She does not want steroids as she does not tolerate them well and they worsen her blood pressure. Patient has outpatient follow-up scheduled and is actually scheduled for an EMG. She is given a short course of Barberton to go home with. At this time I do not think there is any acute neurovascular process and patient is safe to continue with her outpatient work-up. She is agreeable this plan of care. Discharged home in stable condition. I do not think repeat imaging is indicated as she is already had an MRI with no new trauma and no new/focal neurologic deficits. Discharge Plan Triage Chief Complaint: Numb/Ting ED Midlevel Provider: Lubna Jeffrey ED Provider: Elzbieta Guidry Dx/Rx/DC Orders Clinical Impression: Cervical radiculopathy, Arm pain, left Instructions: Radiculopathy Cervical Prescriptions: New hydrocodone-acetaminophen 5-325 mg tablet 1 tab PO Q6H PRN PRN (Reason: Pain) 3 Days Qty: 12 0RF ondansetron 4 mg tablet,disintegrating 4 mg PO Q6H PRN (Reason: nausea and vomiting) Qty: 12 0RF No Action clonazepam 2 mg tablet 2 mg PO BID PRN PRN (Reason: Anxiety) Label Comments: take 1 tablet by mouth twice a day lamotrigine 100 mg tablet 200 mg PO DAILY aripiprazole 2 mg tablet 1 mg PO DAILY Kapspargo Sprinkle 25 mg capsule,sprinkle,ER 24hr 25 mg PO DAILY Label Comments: TAKE 1 CAPSULE BY MOUTH EVERY DAY Primary Care Provider: Lubna Irby Referrals: Lubna Irby, [Primary Care Provider] - Activity Restrictions/Additional Instructions: I prescribed Barberton and Zofran for pain and nausea associated with the medication. You can also take ibuprofen 600 mg every 6 hours. Follow-up with the spinal doctor. Disposition Disposition: Home, Self Care Discharge Date/Time: 11/27/22 19:36
[2022-11-27] MEDS: Ketorolac 15 MG/ML Vial IM (18:47)
[2022-11-27] MEDS: oxyCODONE 5 MG Tablet PO (19:35)
[2022-11-27] MEDS: Ondansetron ODT 4 MG Tablet PO (19:35)
== END 2022-11-27 19:36 | disposition home or self-care (01) ==
PROVIDERS: Emergency Provider Emergency Medicine; PCP Family Medicine; Visit Provider Emergency Medicine
DX: M54.12 Radiculopathy, cervical region (principal); M48.02 Spinal stenosis, cervical region; M25.522 Pain in left elbow; R20.0 Anesthesia of skin; R20.2 Paresthesia of skin; J45.909 Unspecified asthma, uncomplicated; F17.210 Nicotine dependence, cigarettes, uncomplicated
CPT/HCPCS: 96372; 99283; A4216

== ENCOUNTER 2023-07-22 18:13 | Emergency (ER) | payer BC, MEDICAID, SELFPAY ==
[2023-07-22 18:14] VITALS: BP 103/74; PULSE 94; RESP 18; TEMP 36.6; O2SAT 100; BMI 25.0
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
--- NOTE | 2023-07-22 18:49 | CM.ED ---
Social Work Referral Source: case find Referral Reason: care plan SW reviewed patient's chart and provided a copy of patient's care plan to MD Woodson to review possible obstacles and solutions regarding care for patient. MD will consult with WILFREDO if needs arise. Eleni FAN, [place]
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
[2023-07-22] MEDS: cycloBENZAPRine HCl 10 MG Tablet PO (20:23)
[2023-07-22] MEDS: Naproxen 500 MG Tablet PO (20:23)
[2023-07-22 20:25] VITALS: PULSE 79; RESP 16; O2SAT 98
== END 2023-07-22 20:26 | disposition home or self-care (01) ==
PROVIDERS: Emergency Provider Emergency Medicine; PCP Family Medicine; Visit Provider Emergency Medicine
DX: S39.012A Strain of muscle, fascia and tendon of lower back, initial encounter (principal); M41.9 Scoliosis, unspecified; S23.3XXA Sprain of ligaments of thoracic spine, initial encounter; J45.909 Unspecified asthma, uncomplicated; M47.814 Spondylosis without myelopathy or radiculopathy, thoracic region; V48.5XXA Car driver injured in noncollision transport accident in traffic accident, initial encounter
CPT/HCPCS: 72072; 72100; 99283

== ENCOUNTER 2023-09-19 20:47 | Emergency (ER) | payer OTHER, MEDICAID, SELFPAY ==
[2023-09-19 20:48] VITALS: BP 108/71; PULSE 97; RESP 15; TEMP 36.6; O2SAT 97; BMI 26.1
--- NOTE | 2023-09-19 21:18 | ED.VIS.GI ---
HPI HPI - GI History of Present Illness Chief Complaint: Abd Pain Informant: patient Narrative Narrative: Progressive upper abdominal pain with nausea. Yesterday burping bile. Recent loose stools nonbloody. No recent antibiotics. No fevers or chills. History of cholecystectomy 2 years ago. States had gallstone pancreatitis prior to that. Has not drank alcohol in 3 months. Denies alcoholic pancreatitis. Denies fevers or chills. Denies urinary symptoms. No current PPI. Prior similar symptoms: Yes PFSH PFSH Medical History (Updated 09/19/23 @ 22:[address] Alejandro Ball, DO) Acute maxillary sinusitis, unspecified Arthritis Asthma Back pain Bipolar 1 disorder Bladder spasms Chest pain Concussion Headache History of ovarian cyst Knee pain Limb weakness Migraine Sinusitis Stomach ulcer Tachycardia Home Medications clonazepam 2 mg tablet 2 mg PO BID PRN PRN Anxiety 03/24/22 [History Last Taken Unknown] lamotrigine 100 mg tablet 200 mg PO DAILY 03/24/22 [History Last Taken Unknown] aripiprazole 2 mg tablet 1 mg PO DAILY 07/16/22 [History Last Taken Unknown] metoprolol succinate 25 mg capsule sprinkle, ext. release 24 hr (Kapspargo Sprinkle) 25 mg PO DAILY 11/27/22 [History Last Taken Unknown] cyclobenzaprine 10 mg tablet 10 mg PO TID PRN Muscle Spasm #15 TABLETS 07/22/23 [Rx Last Taken Unknown] naproxen 500 mg tablet 500 mg PO BID #14 tabs 07/22/23 [Rx Last Taken Unknown] omeprazole 40 mg capsule,delayed release 40 mg PO DAILY #30 caps 09/19/23 [Rx Last Taken Unknown] ondansetron 4 mg disintegrating tablet 4 mg PO Q8H PRN PRN Nausea #10 tabs 09/19/23 [Rx Last Taken Unknown] Allergy/AdvReac Type Severity Reaction Status Date / Time adhesive Allergy Rash Verified 09/19/23 20:50 amoxicillin Allergy Swelling Verified 09/19/23 20:50 erythromycin base Allergy Hives Verified 09/19/23 20:50 [Erythromycin Base] estradiol Allergy Anaphylaxis Verified 09/19/23 20:50 Penicillins [PCN] Allergy Anaphylaxis Verified 09/19/23 20:50 acetaminophen [From Tylenol] AdvReac Vomiting Verified 09/19/23 20:50 ferrous sulfate AdvReac Constipatio Verified 09/19/23 20:50 n Family History Other Breast cancer Hypertension Surgical History History of adenoidectomy History of appendectomy History of back surgery History of nasal surgery History of ovarian cystectomy History of placement of ear tubes Hx laparoscopic cholecystectomy Status post left breast lumpectomy Social History Smoking Status: Current every day smoker tobacco type: cigarettes alcohol intake: never ROS ROS ED Constitutional Constitutional ED: Denies chills, fever(s) or sweats Eyes Eyes: Denies change in vision ENT ENT ED: Denies dysphagia or sore throat Cardiovascular Cardiovascular: Denies chest pain, leg edema, palpitations or racing heartbeat Respiratory/Chest Respiratory/Chest: Denies cough, dyspnea or dyspnea on exertion Gastrointestinal Gastrointestinal: Reports abdominal pain, nausea and vomiting; Denies diarrhea Genitourinary Genitourinary ED: Denies dysuria, hematuria or urinary frequency Musculoskeletal Musculoskeletal: Denies back pain, extremity pain or neck pain Integumentary Denies rash or wounds Neurologic Neurologic: Denies headache(s), paresthesias or weakness EXAM Physical Exam Const Vital Signs: 09/19/23 20:48 Temperature 97.9 F Temperature Source Temporal Pulse Rate 97 Respiratory Rate 15 Blood Pressure 108/71 Blood Pressure Mean 83 Pulse Ox 97 Oxygen Delivery Method Room Air Positive well nourished and well developed General Appearance ED: well developed and NAD HEENT Reports dry mucous membranes normocephalic and atraumatic Mouth ED: Yes dry mucous membranes Mouth: dry mucous membranes Eyes PERRL, EOMs intact bilaterally and conjunctivae normal General Eye ED: Yes normal appearance of both eyes Neck no lymphadenopathy and supple General: Negative for tenderness Chest Wall Chest: Negative for tenderness Resp normal respiratory effort and normal air movement Effort and Inspection: symmetric chest movement; Negative for respiratory distress Cardio regular rate, regular rhythm and no murmurs Peripheral Pulses: pulses 2+ throughout GI normal to inspection, nondistended, normoactive bowel sounds GI Narrative: Epigastric mid abdominal pain. Negative Hopkins's and McBurney's tenderness. No guarding or rebound. Palpation: Negative for guarding or rebound tenderness present Back/Spine no CVA tenderness and no thoracic nor lumbar tenderness Extremity normal to inspection General Extremety ED: Negative for edema or tenderness General Extremity: Negative for edema Neuro oriented x3 and no sensory deficits noted Sensorium / Orientation: awake and alert Skin no rashes or lesions noted and no wounds MDM MDM MDM Narrative Medical decision making narrative: Interventions / MDM: Differential diagnosis: Gastritis, dehydration Diagnosis considered but do not suspect: . Pancreatitis however labs are normal. My EKG interpretation: N/A Imaging independently reviewed and interpreted by myself: N/A External documents reviewed: N/A Test considered but not ordered:N/A ED course: Patient nonsurgical abdomen history of pancreatitis and concerns of this. She dry mucosal membranes with decreased p.o. intake. IV established, fluids were given. Abdominal labs. She given Zofran and Pepcid IV. Labs all stable lipase normal. Clinically improving. P.o. challenge with no difficulties. Prescription for omeprazole and Zofran sent to her pharmacy. She denies any rectal bleeding or any melena. She will monitor for this. Outpatient follow-up with her doctor. Return precautions. All questions were answered. Re-evaluation: stable Disposition discussed with patient/family/significant other: Patient Case discussed with consulting clinician: N/A This note was generated with [employer] dictation software. It may contain incorrect words, spelling, and punctuation that were not noted in checking the note before signing. Lab Data Attestation: I reviewed the patient's lab results. Labs: Laboratory Results - last 24 hr 09/19/23 21:49 WBC 10.4 RBC 4.09 L Hgb 12.0 Hct 37.9 MCV 92.7 MCH 29.3 MCHC 31.7 L RDW Std Deviation 45.5 H RDW Coeff of David 13.4 Plt Count 240 MPV 9.8 Immature Gran % (Auto) 0.400 Neut % (Auto) 52.6 Lymph % (Auto) 34.5 [place] % (Auto) 7.9 Eos % (Auto) 3.9 Baso % (Auto) 0.7 Absolute Neuts (auto) 5.5 Absolute Lymphs (auto) 3.59 Nucleated RBC % 0 Sodium 142 Potassium 4.1 Chloride 111 H Carbon Dioxide 29.0 Anion Gap 2 L BUN 12 Creatinine 0.71 Estim Creat Clear Calc 98.60 Est GFR (MDRD) Af Amer 118 Est GFR (MDRD) Non-Af 97 BUN/Creatinine Ratio 17.0 Glucose 101 Calcium 9.2 Total Bilirubin 0.10 L Direct Bilirubin < 0.05 AST 21 ALT 37 Alkaline Phosphatase 60 Total Protein 6.7 Albumin 3.4 Globulin 3.3 Lipase < 10 L Discharge Plan Triage Chief Complaint: Abd Pain ED Provider: Alejandro Ball Dx/Rx/DC Orders Clinical Impression: Gastritis, Nausea Instructions: ED Gastritis (Adult) Prescriptions: New ondansetron [ondansetron] 4 mg tablet,disintegrating 4 mg PO Q8H PRN PRN (Reason: Nausea) Qty: 10 0RF omeprazole 40 mg capsule,delayed release(DR/EC) 40 mg PO DAILY Qty: 30 0RF No Action clonazepam 2 mg tablet 2 mg PO BID PRN PRN (Reason: Anxiety) Patient Comments: take 1 tablet by mouth twice a day lamotrigine 100 mg tablet 200 mg PO DAILY aripiprazole 2 mg tablet 1 mg PO DAILY Kapspargo Sprinkle 25 mg capsule,sprinkle,ER 24hr 25 mg PO DAILY Patient Comments: TAKE 1 CAPSULE BY MOUTH EVERY DAY naproxen 500 mg tablet 500 mg PO BID Qty: 14 0RF cyclobenzaprine 10 mg tablet 10 mg PO TID PRN (Reason: Muscle Spasm) Qty: 15 0RF Primary Care Provider: Blaise Wetzel Referrals: Blaise Wetzel DO [Primary Care Provider] - 1 Week if not improving Activity Restrictions/Additional Instructions: Abdominal labs including your lipase is normal. No pancreatitis. Take medications as prescribed continue oral fluids for hydration. Follow-up with your doctor. Disposition Disposition: Home, Self Care
[2023-09-19 21:57] LABS: Absolute Lymphocyte Count 3.59 X10^3/uL (0.83-4.51); Absolute Neutrophil Count 5.5 X10^3/uL (2.0-7.7); Basophil# 0.07 X10^3/uL; Basophil% 0.7 % (0-1); Eosinophil# 0.41 X10^3/uL; Eosinophils% 3.9 % (0-5); Hematocrit 37.9 % (37-47); Lymphocyte # 3.59 X10^3/ul (0.83-4.51); Lymphocyte % 34.5 % (19-41); Mean Corp Hgb Conc 31.7 g/dL (32-36); Mean Corpuscular Hgb 29.3 pg (27.0-32.0); Mean Corpuscular Volume 92.7 fL (81-99); Mean Platelet Vol. 9.8 fl (6.2-12.0); Monocyte# 0.82 X10^3/uL; Monocyte% 7.9 % (0-10); NRBC Flagged by Analyzer 0 % (0-5); Neutrophil # 5.49 X10^3/uL (2.7-7.7); Neutrophil % 52.6 % (47-70); Platelet Count 240 K/mm3 (150-450); RBC Distribution Width CV 13.4 % (11.6-14.6); RBC Distribution Width SD 45.5 fl (35.1-43.9); Red Blood Count 4.09 M/mm3 (4.2-5.4); White Blood Count 10.4 K/mm3 (4.4-11.0)
[2023-09-19] MEDS: 0.9% Normal Saline (1000mL) 1,000 ML 1000 ML IV (22:01)
[2023-09-19] MEDS: Ondansetron 4 MG/2 ML Vial IV (22:02)
[2023-09-19] MEDS: Famotidine 200 MG/20 ML MDV 20 MG in 0.9% Normal Saline (Pres. free 8 ML 300 MG IV (22:03)
[2023-09-19 22:28] LABS: AST(SGOT) 21 U/L (15-37); Alanine Aminotransfer ALT/SGPT 37 U/L (13-56); Albumin, Serum 3.4 g/dL (3.2-5.0); Alkaline Phosphatase 60 U/L (45-117); Anion Gap 2 (5-15); BUN 12 mg/dL (7-18); Bilirubin, Direct < 0.05 mg/dL (0.00-0.30); Calcium,Total 9.2 mg/dL (8.5-10.1); Chloride 111 mmol/L (98-107); Creatinine, Serum 0.71 mg/dL (0.55-1.02); EST Glomerular Filtration Rate 97 mL/min (>60); Est Glom Filt Rate - Afr Amer 118 mL/min (>60); Globulin 3.3 g/dL (2.2-4.2); Glucose 101 mg/dL (74-106); Lipase < 10 U/L (13-75); Potassium 4.1 mmol/L (3.5-5.1); Protein, Total 6.7 g/dL (6.4-8.2); Sodium Level 142 mmol/L (136-145)
[2023-09-19 23:30] VITALS: RESP 16
[2023-09-19 23:33] VITALS: PULSE 82; RESP 16; O2SAT 98
== END 2023-09-19 23:34 | disposition home or self-care (01) ==
PROVIDERS: Emergency Provider Emergency Medicine; PCP Preventive Medicine Occupational Medicine; Visit Provider Emergency Medicine
DX: K29.70 Gastritis, unspecified, without bleeding (principal); J45.909 Unspecified asthma, uncomplicated; F17.210 Nicotine dependence, cigarettes, uncomplicated
CPT/HCPCS: 80048; 80076; 83690; 85025; 96361; 96365; 96375; 99283; J7030; J2405; J3490

== ENCOUNTER 2023-10-13 14:32 | Emergency (ER) | payer OTHER, MEDICAID, SELFPAY ==
[2023-10-13 14:33] VITALS: BP 105/64; PULSE 77; RESP 14; TEMP 36.6; O2SAT 98; BMI 25.4
[2023-10-13 14:48] LABS: Absolute Lymphocyte Count 4.14 X10^3/uL (0.83-4.51); Absolute Neutrophil Count 5.7 X10^3/uL (2.0-7.7); Basophil# 0.09 X10^3/uL; Basophil% 0.8 % (0-1); Eosinophil# 0.36 X10^3/uL; Eosinophils% 3.2 % (0-5); Hematocrit 39.8 % (37-47); Hemoglobin 12.7 g/dL (12.0-15.0); Lymphocyte # 4.14 X10^3/ul (0.83-4.51); Lymphocyte % 36.9 % (19-41); Mean Corp Hgb Conc 31.9 g/dL (32-36); Mean Corpuscular Hgb 29.6 pg (27.0-32.0); Mean Corpuscular Volume 92.8 fL (81-99); Mean Platelet Vol. 9.8 fl (6.2-12.0); Monocyte# 0.88 X10^3/uL; Monocyte% 7.8 % (0-10); NRBC Flagged by Analyzer 0 % (0-5); Neutrophil # 5.71 X10^3/uL (2.7-7.7); Neutrophil % 50.9 % (47-70); POSITIVE MORPHOLOGY YES; Platelet Count 269 K/mm3 (150-450); RBC Distribution Width CV 14.4 % (11.6-14.6); Red Blood Count 4.29 M/mm3 (4.2-5.4); White Blood Count 11.2 K/mm3 (4.4-11.0)
[2023-10-13 14:52] LABS: Differential Indicated SCAN CRITERIA MET
[2023-10-13 14:56] LABS: Internal QC Validated? YES +Cl - CLEAR BKGD; Pregnancy, Serum, hCG Quali. NEGATIVE Negative; Record Kit Lot#, Serum Preg. HCG0000667200
[2023-10-13 15:05] LABS: AST(SGOT) 16 U/L (15-37); Alanine Aminotransfer ALT/SGPT 29 U/L (13-56); Albumin, Serum 3.5 g/dL (3.2-5.0); Alkaline Phosphatase 68 U/L (45-117); Anion Gap 2 (5-15); BUN 9 mg/dL (7-18); BUN/Creat Ratio 13.1 RATIO (10-20); Calcium,Total 8.9 mg/dL (8.5-10.1); Chloride 111 mmol/L (98-107); Creatinine, Serum 0.69 mg/dL (0.55-1.02); EST Glomerular Filtration Rate 100 mL/min (>60); Est Glom Filt Rate - Afr Amer 121 mL/min (>60); Estimated Creatinine Clearance 105.39 ml/min; Globulin 3.5 g/dL (2.2-4.2); Glucose 82 mg/dL (74-106); Potassium 4.4 mmol/L (3.5-5.1); Sodium Level 141 mmol/L (136-145)
[2023-10-13 15:08] LABS: Pathologist Review May foll
[2023-10-13 15:55] LABS: Mucous, Urine 0 SEEN /hpf (<or=2+); Red Blood Cells-Urine 0 SEEN /hpf (0-5); White Blood Cells 0 SEEN /hpf (0-5)
[2023-10-13 16:07] LABS: Color, Urine Yellow (Yellow); Glucose, Dipstick Normal (Normal); Ketone-Dipstick Negative (Negative); Leukocyte Esterase-Dipstick Negative /ul (Negative); Nitrite-Dipstick Negative (Negative); Occult Blood-Urine 10 /ul (Negative); Protein-Dipstick Negative (Negative); Specific Gravity, Urine 1.015 (1.002-1.030); Urine Bilirubin Dipstick Negative (Negative); Urine Clarity Clear (Clear); Urine Urobilinogen Normal (Normal); Urine pH 6.5 (5.0 - 8.0)
[2023-10-13 16:20] LABS: Bacteria 1+ /hpf (None Seen); Squamous Epithelial Cells - UA 0-5 SEEN /hpf (5-10)
[2023-10-13 16:22] LABS: Lipase 10 U/L (13-75)
--- NOTE | 2023-10-13 16:24 | CT_ITS ---
STUDY: CT ABDOMEN AND PELVIS WITH CONTRAST REASON FOR EXAM: Female, 38 years old. RUQ abd pain/ right flank pain RADIATION DOSAGE (If Supplied By Facility): CTDIvol = ( 13.84 ) mGy, DLP = ( 603.87 ) mGycm TECHNIQUE: Transaxial images were obtained from the dome of the diaphragm to the symphysis pubis without oral contrast. IV 100mL Isovue-370 was administered. Sagittal and coronal images were reconstructed. Individualized dose optimization techniques were used for this CT. COMPARISON: 03.02.17 CT scan abdomen and pelvis FINDINGS: There is minimal lower lobe atelectasis. The visualized portions of the heart are within normal limits. Normal liver. There are surgical clips in the gallbladder fossa consistent with a prior cholecystectomy. Normal spleen. There is diffuse atrophy of the pancreas. Normal bilateral adrenal glands. Normal right kidney. There is a punctate stone left upper pole kidney. There is no hydronephrosis. 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 Normal visualized stomach. Normal small intestine. There is abundant stool in the colon from the cecum to the rectum. There is a a few diverticula present without visualized diverticulitis. The stool volume is quite abundant within the right upper quadrant within the cecum and within the transverse colon. See image 27 series 601 and image 57 series 2. The cecum is somewhat high riding in the mid abdomen. This is unchanged since the prior study. There are surgical clips in the region of the appendix consistent with a prior appendectomy. Normal abdominal aorta. Normal inferior vena cava. Normal retroperitoneum. Normal urinary bladder. Normal visualized uterus. There is a left adnexal cystic structure measuring 1.6 x 2.4 cm. This is slightly greater than the cyst seen on the prior study. Normal abdominal wall. Normal osseous structures. CT/Abdomen/Pelvis W IV Cont ONLY IMPRESSION: Moderate constipation. Abundant stool in the colon from the cecum to the rectum especially the right upper quadrant. Status post cholecystectomy. Status post appendectomy. Punctate Stone left kidney no hydronephrosis. Small cyst left ovary. Electronically Signed: Luna Mosley MD at 17:02 EST ,
--- NOTE | 2023-10-13 16:38 | EDS_ITS ---
HPI HPI - GI History of Present Illness Chief Complaint: Abd Pain Informant: patient Narrative Narrative: Patient is a 38-year-old female with history of gallstone pancreatitis s/p cholecystectomy (no further episodes of pancreatitis) as well as appendectomy presenting with right upper quadrant abdominal pain. Patient notes that she had intermittent pain in this area about a month ago but it had resolved. She had been seen in this ER and had lab work which was normal. He tentatively been diagnosed with gastritis and started on Prilosec. Does not feel that the Prilosec really helped with her symptoms had improved. She notes that she did sometimes have a dull pain in her right upper quadrant however it has become significantly worse over the past day. She states it is worse when she changes position or pushes on it. The pain becomes sharp and will radiate slightly to her right ribs and back. Has some nausea but no vomiting. States her bowel movements have been okay denies any black or blood in her stool. Has continued to pass gas and have bowel movements. It was so bad that she had to leave work early so she came to the emergency room. Denies any other complaints or concerns at this time. Has never had pain like this before. [facility] Medical History Acute maxillary sinusitis, unspecified Arthritis Asthma Back pain Bipolar 1 disorder Bladder spasms Chest pain Concussion Headache History of ovarian cyst Knee pain Limb weakness Migraine Sinusitis Stomach ulcer Tachycardia Home Medications clonazepam 2 mg tablet 2 mg PO BID PRN PRN Anxiety 03/24/22 [History Last Taken Unknown] lamotrigine 100 mg tablet 200 mg PO DAILY 03/24/22 [History Last Taken Unknown] aripiprazole 2 mg tablet 1 mg PO DAILY 07/16/22 [History Last Taken Unknown] metoprolol succinate 25 mg capsule sprinkle, ext. release 24 hr (Kapspargo Sprinkle) 25 mg PO DAILY 11/27/22 [History Last Taken Unknown] cyclobenzaprine 10 mg tablet 10 mg PO TID PRN Muscle Spasm #15 TABLETS 07/22/23 [Rx Last Taken Unknown] naproxen 500 mg tablet 500 mg PO BID #14 tabs 07/22/23 [Rx Last Taken Unknown] omeprazole 40 mg capsule,delayed release 40 mg PO DAILY #30 caps 09/19/23 [Rx Last Taken Unknown] ondansetron 4 mg disintegrating tablet 4 mg PO Q8H PRN PRN Nausea #10 tabs 09/19/23 [Rx Last Taken Unknown] dicyclomine 20 mg tablet 20 mg PO TID PRN abdominal pain #14 tabs 10/13/23 [Rx Last Taken Unknown] polyethylene glycol 3350 17 gram oral powder packet (Miralax) 17 g PO DAILY 14 days #14 ea 10/13/23 [Rx Last Taken Unknown] Allergy/AdvReac Type Severity Reaction Status Date / Time adhesive Allergy Rash Verified 10/13/23 14:33 amoxicillin Allergy Swelling Verified 10/13/23 14:33 erythromycin base Allergy Hives Verified 10/13/23 14:33 [Erythromycin Base] estradiol Allergy Anaphylaxis Verified 10/13/23 14:33 Penicillins [PCN] Allergy Anaphylaxis Verified 10/13/23 14:33 acetaminophen [From Tylenol] AdvReac Vomiting Verified 10/13/23 14:33 ferrous sulfate AdvReac Constipatio Verified 10/13/23 14:33 n Family History Other Breast cancer Hypertension Surgical History History of adenoidectomy History of appendectomy History of back surgery History of nasal surgery History of ovarian cystectomy History of placement of ear tubes Hx laparoscopic cholecystectomy Status post left breast lumpectomy Social History Smoking Status: Current every day smoker tobacco type: cigarettes alcohol intake: never ROS ROS ED Constitutional Constitutional ED: Denies chills or fever(s) ENT ENT ED: Denies rhinorrhea or sore throat Cardiovascular Cardiovascular: Denies chest pain Respiratory/Chest Respiratory/Chest: Denies cough Gastrointestinal Gastrointestinal: Reports abdominal pain and nausea; Denies constipation, diarrhea, melena or vomiting Genitourinary Genitourinary ED: Denies dysuria or hematuria Musculoskeletal Musculoskeletal: Denies arthralgias or myalgias Integumentary Denies rash Neurologic Neurologic: Denies headache(s) or weakness Psychiatric Psychiatric: Denies anxiety EXAM Physical Exam Const Vital Signs: 10/13/23 14:33 10/13/23 17:13 Temperature 98 F Temperature Source Temporal Pulse Rate 77 68 Respiratory Rate 14 15 Blood Pressure 105/64 129/74 H Blood Pressure Mean 77 92 Pulse Ox 98 98 Oxygen Delivery Method Room Air Room Air MDM MDM MDM Narrative Medical decision making narrative: Is evaluated for right upper quadrant abdominal pain. Has a history of prior cholecystectomy however choledocholithiasis still in the differential. Differential also includes pancreatitis, gastritis, peptic ulcer disease as well as pyelonephritis and renal colic. Is given IV fluids, morphine and Zofran. Patient not have any recent abdominal imaging on file and will obtain a CT abdomen pelvis that she is quite tender on exam. Lab work does show a mild leukocytosis with a white blood cell count of 11.2 which is nonspecific. The remainder of CBC, CMP, lipase and urinalysis is largely unremarkable. Patient given IV fluids and Zofran. Morphine was held as patient and she has a care plan which I would not previously was aware of. CT shows moderate constipation with an abundance of stool in the colon from the cecum to the rectum especially in the right upper quadrant. This corresponds with her area of pain. I suspect the stool burden is was causing her pain. Patient was offered enema because of her stool burden. She declined stating she would rather just use an enema at home. Is prescribed a Fleet enema in the ER which she will take at home. Is also given a dose of Bentyl. Patient was counseled on this but then left before receiving her discharge paperwork. I will still E prescribe prescription for MiraLAX to help with her further constipation as well as Bentyl. Lab Data Attestation: I reviewed the patient's lab results. Labs: Laboratory Results - last 24 hr 10/13/23 10/13/23 14:35 15:47 WBC 11.2 H RBC 4.29 Hgb 12.7 Hct 39.8 MCV 92.8 MCH 29.6 MCHC 31.9 L RDW Std Deviation 49.0 H RDW Coeff of David 14.4 Plt Count 269 MPV 9.8 Immature Gran % (Auto) 0.400 Neut % (Auto) 50.9 Lymph % (Auto) 36.9 [place] % (Auto) 7.8 Eos % (Auto) 3.2 Baso % (Auto) 0.8 Absolute Neuts (auto) 5.7 Absolute Lymphs (auto) 4.14 Nucleated RBC % 0 [address] Path Review May foll Sodium 141 Potassium 4.4 Chloride 111 H Carbon Dioxide 28.0 Anion Gap 2 L BUN 9 Creatinine 0.69 Estim Creat Clear Calc 105.39 Est GFR (MDRD) Af Amer 121 Est GFR (MDRD) Non-Af 100 BUN/Creatinine Ratio 13.1 Glucose 82 Calcium 8.9 Total Bilirubin 0.10 L AST 16 ALT 29 Alkaline Phosphatase 68 Total Protein 7.0 Albumin 3.5 Globulin 3.5 Albumin/Globulin Ratio 1.0 Lipase 10 L Serum , Qual NEGATIVE Urine Color Yellow Urine Clarity Clear Urine pH 6.5 Ur Specific [place] 1.015 Urine Protein Negative Urine Glucose (UA) Normal Urine Ketones Negative Urine Occult Blood 10 H Urine Nitrite Negative Urine Bilirubin Negative Urine Urobilinogen Normal Ur Leukocyte Esterase Negative Urine RBC 0 SEEN Urine WBC 0 SEEN Ur Squamous Epith Cells 0-5 SEEN Urine Bacteria 1+ Urine Mucus 0 SEEN Radiography Diagnostic Testing: Clinical Impression(s) from Imaging Studies Abdomen/Pelvis CT 10/13/23 16:24 IMPRESSION: Moderate constipation. Abundant stool in the colon from the cecum to the rectum especially the right upper quadrant. Status post cholecystectomy. Status post appendectomy. Punctate Stone left kidney no hydronephrosis. Small cyst left ovary. Electronically Signed: Luna Mosley MD at 17:02 EST Reading Location ID and State: [facility] / [place] Tel , Service support , Discharge Plan Triage Chief Complaint: Abd Pain ED Provider: Elzbieta Guidry Dx/Rx/DC Orders Clinical Impression: Abdominal pain, Constipation Prescriptions: New dicyclomine 20 mg tablet 20 mg PO TID PRN (Reason: abdominal pain) Qty: 14 0RF polyethylene glycol 3350 [Miralax] 17 gram powder in packet 17 g PO DAILY 14 Days Qty: 14 0RF No Action clonazepam 2 mg tablet 2 mg PO BID PRN PRN (Reason: Anxiety) Patient Comments: take 1 tablet by mouth twice a day lamotrigine 100 mg tablet 200 mg PO DAILY aripiprazole 2 mg tablet 1 mg PO DAILY Kapspargo Sprinkle 25 mg capsule,sprinkle,ER 24hr 25 mg PO DAILY Patient Comments: TAKE 1 CAPSULE BY MOUTH EVERY DAY ondansetron [ondansetron] 4 mg tablet,disintegrating 4 mg PO Q8H PRN PRN (Reason: Nausea) Qty: 10 0RF omeprazole 40 mg capsule,delayed release(DR/EC) 40 mg PO DAILY Qty: 30 0RF naproxen 500 mg tablet 500 mg PO BID Qty: 14 0RF cyclobenzaprine 10 mg tablet 10 mg PO TID PRN (Reason: Muscle Spasm) Qty: 15 0RF Primary Care Provider: Blaise Wetzel Referrals: Blaise Wetzel DO [Primary Care Provider] - Disposition Disposition: Home, Self Care Discharge Date/Time: 10/13/23 18:33
--- OUTSIDE RECORDS SUMMARY | 2023-10-13 16:40 | XMS RPT_ITS | CCD ---
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 professional medical care. Always follow your healthcare professional's instructions. Follow Up Care 09/20/2023 13:17:43 With:FLORI WETZEL DO Address: [address] [place] [address] [place] [phone] When:2-4 days [facility] 09-20-2023 Emergency department Discharge summary Discharge Instructions Thank you for allowing [facility] to assist you with your healthcare needs. The following is important discharge information regarding your hospital visit. Diagnosis from Today's Visit Abdominal pain Gastritis What to Do Next Instructions from Your Care Team Zofran as needed for nausea. Motrin as needed for pain. Follow up with your primary care provider. No qualifying data available. Post Acute Orders No qualifying data available. You Need to Schedule the Following Appointments Follow Up with FLORI WETZEL DO When Within 2-4 days Where: [address] [place] [phone] Allergies predniSONE (Sweats) Ceclor (Hives) Pediazole (Weakness, Flushing, Nausea) Suprax (Weakness, Flushing, Nausea) Tape Tylenol (Nausea) Vicodin (Nausea) erythromycin (Diarrhea) penicillin (Pruritus, Rash) traMADol (Hives) Medications Please ask your primary doctor or pharmacist before taking any other medication not listed, including over the counter drugs, herbal medications, vitamins and or supplements as they may interact with your home medications. What How Much When Why Instructions Last Dose Unchanged albuterol (ProAir HFA MDI (90 mcg/ inh) inhalation aerosol) 1 puff(s) by inhalation Every 6 hours URTI - Viral upper respiratory tract infection Unchanged ARIPiprazole (Abilify 5 mg oral tablet) 1 tab(s) by mouth Once a day Unchanged clonazePAM (clonazepam 2 mg oral tablet) 1 tab(s) by mouth Two (2) times a day as needed for Anxiety Anxiety Unchanged dicyclomine (dicyclomine 10 mg oral capsule) 1 cap by mouth Four (4) times a day Duration: 7 Days Unchanged hydrOXYzine (hydrOXYzine hydrochloride 50 mg oral tablet) 1 tab(s) by mouth Three (3) times a day Duration: 30 Days take 1 tablet by mouth three times a day if needed for anxiety Unchanged lamoTRIgine (LaMICtal XR 50 mg oral tablet, extended release) 1 tab(s) by mouth Once a day Bipolar disorder Unchanged lamoTRIgine (lamoTRIgine 250 mg oral tablet, extended release) 1 tab(s) by mouth Once a day Bipolar disorder Unchanged metoprolol (Kapspargo Sprinkle 25 mg oral capsule, extended release) 1 cap by mouth Once a day Please take this list to your next doctor s visit. Bring all medications you take, including over the counter medications, herbals and other supplements with you to your doctor s visit. Patients and families are reminded to discard old lists and to update any records with all medication providers or retail pharmacies. Education Materials Gastritis (Adult) Gastritis is inflammation and irritation of the stomach lining. You can have it for a short time (acute) or be long lasting (chronic). Infection with bacteria called H pylori most often causes gastritis. More than a third of people in the [place] have these bacteria in their bodies. In many cases, H pylori causes no problems or symptoms. In some people, though, the infection irritates the stomach lining and causes gastritis. H. pylori may be diagnosed through blood, stool, or breath tests, we well as through biopsy during an endoscopy. Other causes of stomach irritation include drinking alcohol, smoking or chewing tobacco, or taking pain-relieving medicines called NSAIDs (such as aspirin or ibuprofen). Certain drugs (such as cocaine) and immune conditions can also cause gastritis. Symptoms of gastritis can include: Belly pain or bloating Feeling full quickly Loss of appetite Nausea or vomiting Vomiting blood or having black stools Feeling more tired than usual An inflamed and irritated stomach lining is more likely to develop a sore called an ulcer. To help prevent this, gastritis should be treated. Home care If needed, our healthcare provider may prescribe medicines. If you have H pylori infection, treating it will likely relieve your symptoms. Other changes can help reduce stomach irritation and help it heal. If you have been prescribed medicines for H pylori infection, take them as directed. Take all of the medicine until it is finished or your healthcare provider tells you to stop, even if you feel better. Your healthcare provider may advise you not to take NSAIDs. If you take daily aspirin for your heart or other medical reasons, do not stop without talking to your healthcare provider first. Don't drink alcohol. Stop smoking. Smoking can irritate the stomach and delay healing. As much as possible, stay away from second hand smoke. Follow-up care Follow up with your healthcare provider, or as advised by our staff. You may need testing to check for inflammation or an ulcer. When to seek medical advice Call your healthcare provider for any of the following: Stomach pain that gets worse or moves to the lower right belly (appendix area) Chest pain that appears or gets worse, or spreads to the back, neck, shoulder, or arm Frequent vomiting (can t keep down liquids) Blood in the stool or vomit (red or black in color) Feeling weak or dizzy Shortness of breath Unexplained weight loss Fever of 100.4 F (38 C) or higher, or as directed by your healthcare provider [id number] [employer]. [address] [place] [address]. All rights reserved. This information is not intended as a substitute for professional medical care. Always follow your healthcare professional's instructions. Additional Information VACCINATE! IT SAVES LIVES! Members of the community who have not yet received the COVID-19 vaccine and would like to receive it can visit one of [facility] vaccine clinics. There are many vaccine clinic locations within the [facility]. For locations and available times, please visit [email or web address].[place].g [email or web address] It is important to note that some COVID mobile vaccine clinics are held outdoors and may be canceled in rainy or stormy conditions. To learn more about pediatric vaccinations (ages 5-11), we invite you to visit the [facility] webpage. https://www.[facility].org/pa ges/9398-Pzuok-Foaztoikncc-Freque vozk-Xefqh-Nkdetzsda.html To learn more about the COVID-19 vaccine, we invite you to visit the CDC website for a list of frequently asked questions. https://www.cdc.gov/coronavirus/2 019-ncov/vaccines/faq.html [facility] Patient [facility] Access Instructions: Stay connected with your healthcare team and access your personal medical information anytime with the [facility] Patient Portal. If you would like a full copy of your medical records please contact the [facility] Medical Records Department Monday through Monday between 8a.m. and 4:30p.m. Please follow the directions below to access the portal: 1.Access the email account you provided upon registration to the [facility].2.Look for an invitation email from [facility].3.Open the email and access the invitation link: Accept Invitation to [facility]4.Fill in the required somers to create your account. Sign into [email or web address] with your username and password that you created in the above steps to stay up to date. You can then view a summary of results, a summary of your visits, and the ability to download your summaries to your computer or send the information securely to a physician. Remember that your healthcare information is confidential, so carefully consider who you will allow to register on the [facility] Patient Portal for access to your information. You can also access the [facility] Patient Portal on the [employer]. Simply click on Health Records under Health Data and then click on the [employer] logo. HOW TO SAFELY DISPOSE OF PRESCRIPTION MEDICATIONS Please use one of the following methods to safely dispose of your unused medications. 1.Use a drug disposal kit: the drug disposal pouch allows you to safely discard your old and unused drugs. Ask your nurse to give you one when you are discharged.2.Visit a local take-back location: Many local pharmacies and police departments have programs that collect old and unwanted prescription drugs. Call your local pharmacy or go to http://RotoHog.248 SolidState/1V4Rj3i to find one close to you.3.Make use of household items: Use cat litter or old coffee grounds to dispose medications if other options are not available. Mix your drugs with these household products, seal them in an airtight container and throw it into the garbage. Call [facility]: [phone] to be sure your drugs can be disposed of in this way. Some medicines may require a different approach.4.Never flush your medications down the toilet. IF YOU HAVE BEEN PRESCRIBED AN OPIOIDS FOR PAIN If you have been prescribed an opioid (such as hydrocodone, oxycodone or morphine), it is critical to understand the possible side effects and risks of opioid pain medications. Even when taken as directed, opioids can have several side effects including: Tolerance, meaning you might need to take more of a medication for the same pain relief. Nausea, vomiting and/or constipation. Sleepiness, dizziness, dry mouth, confusion, depression or itching. Physical dependence, meaning you have withdrawal symptoms when a medication is stopped ? this can develop within a few days. KNOW YOUR RESPONSIBILITIES It is important to know exactly how much and how often to take the opioid pain medications you are prescribed. Never take opioids in higher amounts or more often than prescribed. Do not combine opioids with alcohol or other drugs that cause drowsiness, such as benzodiazepines, also known as benzos, including diazepam and alprazolam, muscle relaxants or sleep aids. Never sell or share prescription opioids. This is illegal. Store opioids in a secure place and out of reach of others (including children, family, friends and visitors). The last page(s) of this document has been signed and retained as a CHART COPY Signatures Patient Education Materials Gastritis (Adult) Medication Leaflets My discharge plan and instructions have been reviewed and explained to me and I,LEONEL MONTEIRO understand my current condition and have read and understand these discharge instructions. I have received a written copy of the plan/instructions. If I have questions, I am aware that I should contact my doctor. 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 Multiplanar reformatted images are provided for review. Automated exposure control, iterative reconstruction, and/or weight based adjustment of the mA/kV was utilized to reduce the radiation dose to as low as reasonably achievable. COMPARISON: 07/21/2023 HISTORY: ORDERING SYSTEM PROVIDED HISTORY: Reason for Exam: pain FINDINGS: Lower Chest: Normal heart size. Bibasilar patchy and bandlike opacities. No pleural effusion. Organs: The liver appears normal. The patient is status post cholecystectomy. The spleen appears normal. The pancreas appears normal. The adrenal glands appear normal. Punctate nonobstructive renal stones bilaterally. Normal renal enhancement. No hydronephrosis. GI/Bowel: Scattered diverticulosis without diverticulitis. Moderate stool burden. There is no evidence of obstruction. The appendix is surgically absent. Pelvis: The pelvic organs appear normal. Peritoneum/Retroperitoneum: There is no intraperitoneal free air or ascites. The aorta and its major branches appear normal. No lymphadenopathy is identified. Bones/Soft Tissues: Degenerative changes are noted in the spine. Status post metallic umbilicus or Jean. IMPRESSION: 1. No definite acute abnormality is identified. 2. Punctate nonobstructive renal stones. 3. Scattered diverticulosis without diverticulitis. 4. Bibasilar lung opacities may reflect atelectasis however consider infection in the appropriate clinical context. Interpreted by: Hernesto Dominguez Preliminary Report By: Hernesto Dominguez Electronically signed By Hernesto Dominguez Dictated Date: 09/20/2023 5:03:21 PM Prelim Date: 09/20/2023 5:09:15 PM Sign Date: 09/20/2023 5:09:15 PM Ordering Provider: KEITH MATSON [facility] 07-23-2023 Note . MICRO - Microbiology PROCEDURE: Urine Culture [*1] SOURCE: Urine, Clean Catch BODY SITE: COLLECTED DATE/TIME: 07/21/2023 16:40 EDT RECEIVED DATE/TIME: 07/21/2023 19:12 EDT START DATE/TIME: 07/21/2023 19:13 EDT FREE TEXT SOURCE: FINAL REPORTS Final Report [] Verified Date/Time/Personnel: 07/23/2023 08:48 EDT 50,000 - 100,000 cfu/ml Mixed growth consistent with normal urogenital lawrence. PRELIMINARY REPORTS Preliminary Report [] Verified Date/Time/Personnel: 07/22/2023 09:27 EDT No growth to date Performing Locations *1: This test was performed at: [facility], [address] [place] [address], [id number] , [facility] ([place]) 07-21-2023 Hospital Discharge instructions Patient Education 07/21/2023 17:57:11 Constipation (Adult) Constipation (Adult) Constipation means that you have bowel movements that are less frequent than usual. Stools often become very hard and difficult to pass. Constipation is very common. At some point in life, it affects almost everyone. Since everyone's bowel habits are different, what is constipation to one person may not be to another. Your healthcare provider may do tests to diagnose constipation. It depends on what he or she finds when evaluating you. Symptoms of constipation include: Abdominal pain Bloating Vomiting Painful bowel movements Itching, swelling, bleeding, or pain around the anus Causes Constipation can have many causes. These include: Diet low in fiber Too much dairy Not drinking enough liquids Lack of exercise or physical activity (especially true for older adults) Changes in lifestyle or daily routine, including , aging, work, and travel Frequent use or misuse of laxatives Ignoring the urge to have a bowel movement or delaying it until later Medicines, such as certain prescription pain medicines, iron supplements, antacids, certain antidepressants, and calcium supplements Diseases like irritable bowel syndrome, bowel obstructions, stroke, diabetes, thyroid disease, Parkinson disease, hemorrhoids, and colon cancer Complications Potential complications of constipation can include: Hemorrhoids Rectal bleeding from hemorrhoids or anal fissures (skin tears) Hernias Dependency on laxatives Chronic constipation Fecal impaction, a severe form of constipation in which a large amount of hard stool is in your rectum that you can't pass Bowel obstruction or perforation Home care All treatment should be done after talking with your healthcare provider. This is especially true if you have another medical problems, are taking prescription medicines, or are an older adult. Treatment most often involves lifestyle changes. You may also need medicines. Your healthcare provider will tell you which will work best for you. Follow the advice below to help avoid this problem in the future. Lifestyle changes These lifestyle changes can help prevent constipation: Diet. Eat a high-fiber diet, with fresh fruit and vegetables, and reduce dairy intake, meats, and processed foods Fluids. It's important to get enough fluids each day. Drink plenty of water when you eat more fiber. If you are on diet that limits the amount of fluid you can have, talk about this with your healthcare provider. Regular exercise. Check with your healthcare provider first. Medicines Take any medicines as directed. Some laxatives are safe to use only every now and then. Others can be taken on a regular basis. While laxatives don't cause bowel dependence, they are treating the symptoms. So your constipation may return if you don't make other changes. Talk with your healthcare provider or pharmacist if you have questions. Prescription pain medicines can cause constipation. If you are taking this kind of medicine, ask your healthcare provider if you should also take a stool softener. Medicines you may take to treat constipation include: Fiber supplements Stool softeners Laxatives Enemas Rectal suppositories Follow-up care Follow up with your healthcare provider if symptoms don't get better in the next few days. You may need to have more tests or see a specialist. Call 911 Call 911 if any of these occur: Trouble breathing Stiff, rigid abdomen that is severely painful to touch Confusion Fainting or loss of consciousness Rapid heart rate Chest pain When to seek medical advice Call your healthcare provider right away if any of these occur: Fever of 100.4 F (38 C) or higher, or as directed by your healthcare provider Failure to resume normal bowel movements Pain in your abdomen or back gets worse Nausea or vomiting Swelling in your abdomen Blood in the stool Black, tarry stool Involuntary weight loss Weakness [id number] The [employer]. [address] [place] [address]. All rights reserved. This information is not intended as a substitute for professional medical care. Always follow your healthcare professional's instructions. 07/21/2023 17:57:07 Abdominal Pain, Unknown Cause, (Female) Unknown Causes of Abdominal Pain (Female) The exact cause of your belly (abdominal) pain is not clear. This does not mean that this is something to worry about. Everyone likes to know the exact cause of the problem. But sometimes with belly pain, there is no clear-cut cause, and this could be a good thing. The good news is that your symptoms can be treated, and you will feel better. Your condition does not seem serious now. But sometimes the signs of a serious problem may take more time to appear. For this reason, it is important for you to watch for any new symptoms, problems, or worsening of your condition. Over the next few days, the abdominal pain may come and go. Or it may be constant. Other common symptoms can include nausea and vomiting. Sometimes it can be difficult to tell if you feel nauseous. You may just feel bad and not connect that feeling to nausea. Constipation, diarrhea, and a fever may go along with the pain. The pain may continue even if treated correctly over the following days. Depending on how things go, sometimes the cause can become clear and may need more or different treatment. Additional evaluations, medicines, or tests may also be needed. Home care Your healthcare provider may prescribe medicine for pain, symptoms, or an infection. Follow the healthcare provider's instructions for taking these medicines. General care Rest as much as you can until your next exam. No strenuous activities. Try to find positions that ease discomfort. A small pillow placed on the abdomen may help relieve pain. Something warm on your abdomen (such as a heating pad) may help, but be careful not to burn yourself. Diet Don t force yourself to eat, especially if having cramps, vomiting, or diarrhea. Water is important so you don't get dehydrated. Soup may also be good. Sports drinks may also help, especially if they are not too acidic. Don't drink sugary drinks as this can make things worse. Take liquids in small amounts. Don t guzzle them. Caffeine sometimes makes the pain and cramping worse. Don t take dairy products if you have vomiting or diarrhea. Don't eat large amounts at a time. Wait a few minutes between bites. Eat a diet low in fiber (called a low-residue diet). Foods allowed include refined breads, white rice, fruit and vegetable juices without pulp, tender meats. These foods will pass more easily through the intestine. Don t have whole-grain foods, whole fruits and vegetables, meats, seeds and nuts, fried or fatty foods, dairy, alcohol and spicy foods until your symptoms go away. Follow-up care Follow up with your healthcare provider, or as advised, if your pain does not begin to improve in the next 24 hours. Call 911 Call 911 if any of these occur: Trouble breathing Confusion Fainting or loss of consciousness Rapid heart rate Seizure When to seek medical advice Call your healthcare provider right away if any of these occur: Pain gets worse or moves to the right lower abdomen New or worsening vomiting or diarrhea Swelling of the abdomen Unable to pass stool for more than 3 days Fever of 100.4 F (38 C) or higher, or as directed by your healthcare provider. Blood in vomit or bowel movements (dark red or black color) Yellow color of eyes and skin (jaundice) Weakness, dizziness Chest, arm, back, neck, or jaw pain Unexpected vaginal bleeding or missed period Can't keep down liquids or water and you are getting dehydrated [id number] [employer]. [address] [place] [address], [place] [address]. All rights reserved. This information is not intended as a substitute for professional medical care. Always follow your healthcare professional's instructions. Follow Up Care 07/21/2023 15:29:05 With:FLORI WETZEL DO Address: [address] [place] [phone] When:2-4 days [facility] 07-21-2023 Note Discharge Instructions Thank you for allowing [facility] to assist you with your healthcare needs. The following is important discharge information regarding your hospital visit. Diagnosis from Today's Visit Abdominal pain Abdominal pain Constipation What to Do Next Instructions from Your Care Team Discharge Return to Work, School, or Sports (Return to Work, School, or Sports) - Ordered -- 07/22/23, May return to: work, 07/21/23 17:58:00 EDT Post Acute Orders No qualifying data available. You Need to Schedule the Following Appointments Follow Up with FLORI WETZEL DO When Within 2-4 days Where: [address] [place] [phone] Allergies predniSONE (Sweats) Ceclor (Hives) Pediazole (Weakness, Flushing, Nausea) Suprax (Weakness, Flushing, Nausea) Tape Tylenol (Nausea) Vicodin (Nausea) erythromycin (Diarrhea) penicillin (Pruritus, Rash) traMADol (Hives) Medications Please ask your primary doctor or pharmacist before taking any other medication not listed, including over the counter drugs, herbal medications, vitamins and or supplements as they may interact with your home medications. What How Much When Why Instructions Last Dose New dicyclomine (dicyclomine 10 mg oral capsule) 1 cap by mouth Four (4) times a day Duration: 7 Days Printed Prescription New polyethylene glycol 3350 (MiraLax oral powder for reconstitution) 17 gram(s) by mouth Two (2) times a day Duration: 14 Days Printed Prescription Unchanged albuterol (ProAir HFA MDI (90 mcg/ inh) inhalation aerosol) 1 puff(s) by inhalation Every 6 hours URTI - Viral upper respiratory tract infection Unchanged ARIPiprazole (Abilify 5 mg oral tablet) 1 tab(s) by mouth Once a day Unchanged clonazePAM (clonazepam 2 mg oral tablet) 1 tab(s) by mouth Two (2) times a day as needed for Anxiety Anxiety Unchanged lamoTRIgine (LaMICtal XR 50 mg oral tablet, extended release) 1 tab(s) by mouth Once a day Bipolar disorder Unchanged lamoTRIgine (lamoTRIgine 250 mg oral tablet, extended release) 1 tab(s) by mouth Once a day Bipolar disorder Unchanged metoprolol (Kapspargo Sprinkle 25 mg oral capsule, extended release) 1 cap by mouth Once a day Please take this list to your next doctor s visit. Bring all medications you take, including over the counter medications, herbals and other supplements with you to your doctor s visit. Patients and families are reminded to discard old lists and to update any records with all medication providers or retail pharmacies. Medication Leaflets polyethylene glycol 3350 (gisell ee ETH il een GLYE kol) ClearLax, GaviLAX, HealthyLax, MiraLax, Natura-Lax, [id number], [employer] ClearLax What is the most important information I should know about polyethylene glycol 3350? You should not use this medicine if you have a bowel obstruction or intestinal blockage. If you have any of these conditions, you could have dangerous or life-threatening side effects from polyethylene glycol 3350. Do not use polyethylene glycol 3350 more than once per day. Call your doctor if you are still constipated or irregular after using this medication for 7 days in a row. What is polyethylene glycol 3350? Polyethylene glycol 3350 is a laxative solution that increases the amount of water in the intestinal tract to stimulate bowel movements. Polyethylene glycol 3350 is used as a laxative to treat occasional constipation or irregular bowel movements. Polyethylene glycol 3350 may also be used for purposes not listed in this medication guide. What should I discuss with my healthcare provider before taking polyethylene glycol 3350? You should not use this medicine if you are allergic to polyethylene glycol, or if you have a bowel obstruction or intestinal blockage. If you have any of these conditions, you could have dangerous or life-threatening side effects from polyethylene glycol 3350. People with eating disorders (such as anorexia or bulimia) should not use this medication without the advice of a doctor. To make sure this medicine is safe for you, tell your doctor if you have: nausea, vomiting, or severe stomach pain; ulcerative colitis; irritable bowel syndrome; kidney disease; or if you have had a sudden change in bowel habits that has lasted 2 weeks or longer. FDA category C. It is not known whether polyethylene glycol 3350 will harm an unborn baby. Tell your doctor if you are or plan to become while using this medication. It is not known whether polyethylene glycol 3350 passes into breast milk or if it could harm a nursing baby. Tell your doctor if you are breast-feeding a baby. How should I take polyethylene glycol 3350? Follow all directions on your prescription label. Do not use this medicine in larger or smaller amounts or for longer than recommended. To use the powder form of this medicine, measure your dose with the medicine cap on the bottle. This cap should contain dose mueller on the inside of it. Pour the powder into 4 to 8 ounces of a cold or hot beverage such as water, juice, soda, coffee, or tea. Stir this mixture and drink it right away. Do not save for later use. Polyethylene glycol 3350 should produce a bowel movement within 1 to 3 days of using the medication. Polyethylene glycol 3350 normally causes loose or even watery stools. Do not use polyethylene glycol 3350 more than once per day. Call your doctor if you are still constipated or irregular after using this medication for 7 days in a row. Store at room temperature away from moisture and heat. What happens if I miss a dose? Take the missed dose as soon as you remember. Skip the missed dose if it is almost time for your next scheduled dose. Do not take extra medicine to make up the missed dose. What happens if I overdose? Seek emergency medical attention or call the Poison Help line at . What should I avoid while taking polyethylene glycol 3350? Follow your doctor's instructions about any restrictions on food, beverages, or activity. What are the possible side effects of polyethylene glycol 3350? Get emergency medical help if you have signs of an allergic reaction: hives; difficult breathing; swelling of your face, lips, tongue, or throat. Stop taking this medicine and call your doctor at once if you have: severe or bloody diarrhea; rectal bleeding; blood in your stools; or severe and worsening stomach pain. Common side effects may include: bloating, gas, upset stomach; dizziness; or increased sweating. This is not a complete list of side effects and others may occur. Call your doctor for medical advice about side effects. You may report side effects to FDA at 6-472-ZRT-5696. What other drugs will affect polyethylene glycol 3350? Other drugs may interact with polyethylene glycol 3350, including prescription and [id number] medicines, vitamins, and herbal products. Tell each of your health care providers about all medicines you use now and any medicine you start or stop using. Where can I get more information? Your pharmacist can provide more information about polyethylene glycol 3350. Remember, keep this and all other medicines out of the reach of children, never share your medicines with others, and use this medication only for the indication prescribed. Every effort has been made to ensure that the information provided by [employer]. [employer]') is accurate, up-to-date, and complete, but no guarantee is made to that effect. Drug information contained herein may be time sensitive. [employer] information has been compiled for use by healthcare practitioners and consumers in the [place] and therefore [employer] does not warrant that uses outside of the [place] are appropriate, unless specifically indicated otherwise. [employer]'s drug information does not endorse drugs, diagnose patients or recommend therapy. [employer] drug information is an informational resource designed to assist licensed healthcare practitioners in caring for their patients and/or to serve consumers viewing this service as a supplement to, and not a substitute for, the expertise, skill, knowledge and judgment of healthcare practitioners. The absence of a warning for a given drug or drug combination in no way should be construed to indicate that the drug or drug combination is safe, effective or appropriate for any given patient. [employer] does not assume any responsibility for any aspect of healthcare administered with the aid of information [employer] provides. The information contained herein is not intended to cover all possible uses, directions, precautions, warnings, drug interactions, allergic reactions, or adverse effects. If you have questions about the drugs you are taking, check with your doctor, nurse or pharmacist. Copyright 7055-3645 [employer]. Version: 4.01. Revision Date: 05/10/2023. dicyclomine (oral/injection) (bianca Ma What is the most important information I should know about dicyclomine? Many drugs can affect dicyclomine. Tell your doctor about all your current medicines. What is dicyclomine? Dicyclomine is used to treat functional bowel or irritable bowel syndrome. Dicyclomine may also be used for purposes not listed in this medication guide. What should I discuss with my healthcare provider before taking dicyclomine? You should not use dicyclomine if you are allergic to it, or if you have: glaucoma; a bladder obstruction or other urination problems; a blockage in your digestive tract (stomach or intestines); severe ulcerative colitis; gastroesophageal reflux disease (GERD); a serious heart condition and active bleeding; myasthenia gravis; or if you are a baby. Not approved for use by anyone younger than 18 years old. Dicyclomine should never be given to a child younger than 6 months old. Tell your doctor if you have ever had: heart problems or high blood pressure; a stroke; ulcerative colitis; an ileostomy or colostomy; an enlarged prostate; or liver or kidney disease. Older adults may be more sensitive to the effects of this medicine. Tell your doctor if you are . Do not breastfeed. How should I take dicyclomine? Follow all directions on your prescription label and read all medication guides or instruction sheets. Your doctor may occasionally change your dose. Use the medicine exactly as directed. Dicyclomine oral is taken by mouth. Measure liquid medicine with the supplied syringe or a dose-measuring device (not a kitchen spoon). Dicyclomine injection is given in a muscle if you are unable to take the medicine by mouth. Call your doctor if your symptoms do not improve after 2 weeks. Store at room temperature away from moisture and heat. What happens if I miss a dose? Skip the missed dose and use your next dose at the regular time. Do not use two doses at one time. What happens if I overdose? Seek emergency medical attention or call the Poison Help line at . Overdose can cause nausea, vomiting, dilated pupils, weakness or loss of movement in any part of your body, trouble swallowing, fainting, or seizure (convulsions). What should I avoid while taking dicyclomine? May cause dizziness or blurred vision. Avoid driving or hazardous activity until you know how this medicine will affect you. Avoid becoming overheated or dehydrated during exercise and in hot weather. Dicyclomine can decrease sweating and you may be more prone to heat stroke. Tell your doctor if you have a fever while taking dicyclomine. Avoid using an antacid. Antacids can make it harder for your body to absorb dicyclomine oral. What are the possible side effects of dicyclomine? Get emergency medical help if you have signs of an allergic reaction: hives; difficult breathing; swelling of your face, lips, tongue, or throat. Call your doctor at once if you have: fast or slow heartbeats, pounding heartbeats or fluttering in your chest; confusion, agitation, hallucinations, unusual thoughts or behavior; problems with memory or speech; problems with balance or muscle movement; diarrhea, severe constipation, or worsening of bowel symptoms; trouble swallowing; bruising, swelling, or pain where a dicyclomine injection was given; or dehydration --dizziness, confusion, feeling very thirsty, less urination or sweating. Confusion and mood or behavior changes may be more likely in older adults. Common side effects may include: drowsiness, dizziness, weakness, nervousness; blurred vision; dry mouth; or nausea. This is not a complete list of side effects and others may occur. Call your doctor for medical advice about side effects. You may report side effects to FDA at 1-577-AED-2598. What other drugs will affect dicyclomine? Using dicyclomine with other drugs that make you drowsy can worsen this effect. Ask your doctor before using opioid medication, a sleeping pill, a muscle relaxer, or medicine for anxiety or seizures. Tell your doctor about all your current medicines. Many drugs can affect dicyclomine, especially: bronchodilator asthma medication; cold or allergy medicine (Benadryl and others); glaucoma medication; heart medication; medicine to treat depression, anxiety, mood disorders, or mental illness; medicine to treat overactive bladder; medicine to treat Parkinson's disease; or medicine to treat stomach problems, motion sickness, or irritable bowel syndrome. This list is not complete and many other drugs may affect dicyclomine. This includes prescription and jupk-ojh-bkngrhl medicines, vitamins, and herbal products. Not all possible drug interactions are listed here. Where can I get more information? Your pharmacist can provide more information about dicyclomine. Remember, keep this and all other medicines out of the reach of children, never share your medicines with others, and use this medication only for the indication prescribed. Every effort has been made to ensure that the information provided by [employer] is accurate, up-to-date, and complete, but no guarantee is made to that effect. Drug information contained herein may be time sensitive. [employer] information has been compiled for use by healthcare practitioners and consumers in the [place] and therefore [employer] does not warrant that uses outside of the [place] are appropriate, unless specifically indicated otherwise. [employer] drug information does not endorse drugs, diagnose patients or recommend therapy. [employer] drug information is an informational resource designed to assist licensed healthcare practitioners in caring for their patients and/or to serve consumers viewing this service as a supplement to, and not a substitute for, the expertise, skill, knowledge and judgment of healthcare practitioners. The absence of a warning for a given drug or drug combination in no way should be construed to indicate that the drug or drug combination is safe, effective or appropriate for any given patient. [employer] does not assume any responsibility for any aspect of healthcare administered with the aid of information [employer] provides. The information contained herein is not intended to cover all possible uses, directions, precautions, warnings, drug interactions, allergic reactions, or adverse effects. If you have questions about the drugs you are taking, check with your doctor, nurse or pharmacist. Copyright 2569-5286 [employer]. Version: 8.01. Revision Date: 05/12/2023. Education Materials Constipation (Adult) Constipation means that you have bowel movements that are less frequent than usual. Stools often become very hard and difficult to pass. Constipation is very common. At some point in life, it affects almost everyone. Since everyone's bowel habits are different, what is constipation to one person may not be to another. Your healthcare provider may do tests to diagnose constipation. It depends on what he or she finds when evaluating you. Symptoms of constipation include: Abdominal pain Bloating Vomiting Painful bowel movements Itching, swelling, bleeding, or pain around the anus Causes Constipation can have many causes. These include: Diet low in fiber Too much dairy Not drinking enough liquids Lack of exercise or physical activity (especially true for older adults) Changes in lifestyle or daily routine, including , aging, work, and travel Frequent use or misuse of laxatives Ignoring the urge to have a bowel movement or delaying it until later Medicines, such as certain prescription pain medicines, iron supplements, antacids, certain antidepressants, and calcium supplements Diseases like irritable bowel syndrome, bowel obstructions, stroke, diabetes, thyroid disease, Parkinson disease, hemorrhoids, and colon cancer Complications Potential complications of constipation can include: Hemorrhoids Rectal bleeding from hemorrhoids or anal fissures (skin tears) Hernias Dependency on laxatives Chronic constipation Fecal impaction, a severe form of constipation in which a large amount of hard stool is in your rectum that you can't pass Bowel obstruction or perforation Home care All treatment should be done after talking with your healthcare provider. This is especially true if you have another medical problems, are taking prescription medicines, or are an older adult. Treatment most often involves lifestyle changes. You may also need medicines. Your healthcare provider will tell you which will work best for you. Follow the advice below to help avoid this problem in the future. Lifestyle changes These lifestyle changes can help prevent constipation: Diet. Eat a high-fiber diet, with fresh fruit and vegetables, and reduce dairy intake, meats, and processed foods Fluids. It's important to get enough fluids each day. Drink plenty of water when you eat more fiber. If you are on diet that limits the amount of fluid you can have, talk about this with your healthcare provider. Regular exercise. Check with your healthcare provider first. Medicines Take any medicines as directed. Some laxatives are safe to use only every now and then. Others can be taken on a regular basis. While laxatives don't cause bowel dependence, they are treating the symptoms. So your constipation may return if you don't make other changes. Talk with your healthcare provider or pharmacist if you have questions. Prescription pain medicines can cause constipation. If you are taking this kind of medicine, ask your healthcare provider if you should also take a stool softener. Medicines you may take to treat constipation include: Fiber supplements Stool softeners Laxatives Enemas Rectal suppositories Follow-up care Follow up with your healthcare provider if symptoms don't get better in the next few days. You may need to have more tests or see a specialist. Call 911 Call 911 if any of these occur: Trouble breathing Stiff, rigid abdomen that is severely painful to touch Confusion Fainting or loss of consciousness Rapid heart rate Chest pain When to seek medical advice Call your healthcare provider right away if any of these occur: Fever of 100.4 F (38 C) or higher, or as directed by your healthcare provider Failure to resume normal bowel movements Pain in your abdomen or back gets worse Nausea or vomiting Swelling in your abdomen Blood in the stool Black, tarry stool Involuntary weight loss Weakness [id number] The [employer]. [address] [place] [address]. All rights reserved. This information is not intended as a substitute for professional medical care. Always follow your healthcare professional's instructions. Unknown Causes of Abdominal Pain (Female) The exact cause of your belly (abdominal) pain is not clear. This does not mean that this is something to worry about. Everyone likes to know the exact cause of the problem. But sometimes with belly pain, there is no clear-cut cause, and this could be a good thing. The good news is that your symptoms can be treated, and you will feel better. Your condition does not seem serious now. But sometimes the signs of a serious problem may take more time to appear. For this reason, it is important for you to watch for any new symptoms, problems, or worsening of your condition. Over the next few days, the abdominal pain may come and go. Or it may be constant. Other common symptoms can include nausea and vomiting. Sometimes it can be difficult to tell if you feel nauseous. You may just feel bad and not connect that feeling to nausea. Constipation, diarrhea, and a fever may go along with the pain. The pain may continue even if treated correctly over the following days. Depending on how things go, sometimes the cause can become clear and may need more or different treatment. Additional evaluations, medicines, or tests may also be needed. Home care Your healthcare provider may prescribe medicine for pain, symptoms, or an infection. Follow the healthcare provider's instructions for taking these medicines. General care Rest as much as you can until your next exam. No strenuous activities. Try to find positions that ease discomfort. A small pillow placed on the abdomen may help relieve pain. Something warm on your abdomen (such as a heating pad) may help, but be careful not to burn yourself. Diet Don t force yourself to eat, especially if having cramps, vomiting, or diarrhea. Water is important so you don't get dehydrated. Soup may also be good. Sports drinks may also help, especially if they are not too acidic. Don't drink sugary drinks as this can make things worse. Take liquids in small amounts. Don t guzzle them. Caffeine sometimes makes the pain and cramping worse. Don t take dairy products if you have vomiting or diarrhea. Don't eat large amounts at a time. Wait a few minutes between bites. Eat a diet low in fiber (called a low-residue diet). Foods allowed include refined breads, white rice, fruit and vegetable juices without pulp, tender meats. These foods will pass more easily through the intestine. Don t have whole-grain foods, whole fruits and vegetables, meats, seeds and nuts, fried or fatty foods, dairy, alcohol and spicy foods until your symptoms go away. Follow-up care Follow up with your healthcare provider, or as advised, if your pain does not begin to improve in the next 24 hours. Call 911 Call 911 if any of these occur: Trouble breathing Confusion Fainting or loss of consciousness Rapid heart rate Seizure When to seek medical advice Call your healthcare provider right away if any of these occur: Pain gets worse or moves to the right lower abdomen New or worsening vomiting or diarrhea Swelling of the abdomen Unable to pass stool for more than 3 days Fever of 100.4 F (38 C) or higher, or as directed by your healthcare provider. Blood in vomit or bowel movements (dark red or black color) Yellow color of eyes and skin (jaundice) Weakness, dizziness Chest, arm, back, neck, or jaw pain Unexpected vaginal bleeding or missed period Can't keep down liquids or water and you are getting dehydrated [id number] The [employer]. [address] [place] [address], [place] [address]. All rights reserved. This information is not intended as a substitute for professional medical care. Always follow your healthcare professional's instructions. Additional Information VACCINATE! IT SAVES LIVES! Members of the community who have not yet received the COVID-19 vaccine and would like to receive it can visit one of [facility] vaccine clinics. There are many vaccine clinic locations within the [facility]. For locations and available times, please visit [email or web address] [email or web address] It is important to note that some COVID mobile vaccine clinics are held outdoors and may be canceled in rainy or stormy conditions. To learn more about pediatric vaccinations (ages 5-11), we invite you to visit the [facility] webpage. https://www.akRSI [employer]s.org/pa ges/8131-Yjrlj-Gmoiunrpfvt-Freque owge-Pbfzm-Vmzxarddt.html To learn more about the COVID-19 vaccine, we invite you to visit the CDC website for a list of frequently asked questions. https://www.cdc.gov/coronavirus/2 019-ncov/vaccines/faq.html [facility] Patient Portal Access Instructions: Stay connected with your healthcare team and access your personal medical information anytime with the [facility] Patient Portal. If you would like a full copy of your medical records please contact the [facility] Medical Records Department Monday through Monday between 8a.m. and 4:30p.m. Please follow the directions below to access the portal: 1.Access the email account you provided upon registration to the hospital.2.Look for an invitation email from [facility].3.Open the email and access the invitation link: Accept Invitation to [facility]4.Fill in the required somers to create your account. Sign into [email or web address] with your username and password that you created in the above steps to stay up to date. You can then view a summary of results, a summary of your visits, and the ability to download your summaries to your computer or send the information securely to a physician. Remember that your healthcare information is confidential, so carefully consider who you will allow to register on the [facility] Patient Portal for access to your information. You can also access the [facility] Patient Portal on the [employer] dominique. Simply click on Health Records under Health Data and then click on the [employer] logo. HOW TO SAFELY DISPOSE OF PRESCRIPTION MEDICATIONS Please use one of the following methods to safely dispose of your unused medications. 1.Use a drug disposal kit: the drug disposal pouch allows you to safely discard your old and unused drugs. Ask your nurse to give you one when you are discharged.2.Visit a local take-back location: Many local pharmacies and police departments have programs that collect old and unwanted prescription drugs. Call your local pharmacy or go to http://RotoHog.248 SolidState/9X5Fw2u to find one close to you.3.Make use of household items: Use cat litter or old coffee grounds to dispose medications if other options are not available. Mix your drugs with these household products, seal them in an airtight container and throw it into the garbage. Call [facility]: [phone] to be sure your drugs can be disposed of in this way. Some medicines may require a different approach.4.Never flush your medications down the toilet. IF YOU HAVE BEEN PRESCRIBED AN OPIOIDS FOR PAIN If you have been prescribed an opioid (such as hydrocodone, oxycodone or morphine), it is critical to understand the possible side effects and risks of opioid pain medications. Even when taken as directed, opioids can have several side effects including: Tolerance, meaning you might need to take more of a medication for the same pain relief. Nausea, vomiting and/or constipation. Sleepiness, dizziness, dry mouth, confusion, depression or itching. Physical dependence, meaning you have withdrawal symptoms when a medication is stopped ? this can develop within a few days. KNOW YOUR RESPONSIBILITIES It is important to know exactly how much and how often to take the opioid pain medications you are prescribed. Never take opioids in higher amounts or more often than prescribed. Do not combine opioids with alcohol or other drugs that cause drowsiness, such as benzodiazepines, also known as benzos, including diazepam and alprazolam, muscle relaxants or sleep aids. Never sell or share prescription opioids. This is illegal. Store opioids in a secure place and out of reach of others (including children, family, friends and visitors). The last page(s) of this document has been signed and retained as a CHART COPY Signatures Patient Education Materials Constipation (Adult) Abdominal Pain, Unknown Cause, (Female) Medication Leaflets polyethylene glycol 3350, dicyclomine (oral/injection) My discharge plan and instructions have been reviewed and explained to me and I,LEONEL MONTEIRO understand my current condition and have read and understand these discharge instructions. I have received a written copy of the plan/instructions. If I have questions, I am aware that I should contact my doctor. 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 Multiplanar reformatted images are provided for review. Automated exposure control, iterative reconstruction, and/or weight based adjustment of the mA/kV was utilized to reduce the radiation dose to as low as reasonably achievable. COMPARISON: 07/17/2022 HISTORY: ORDERING SYSTEM PROVIDED HISTORY: Reason for Exam: ruq pain and bloating since yesterday pain FINDINGS: The heart is normal in size. Dependent atelectasis noted in the lungs. The liver, spleen, adrenal glands, and pancreas are within normal limits. The gallbladder is surgically absent. The kidneys enhance symmetrically. There is a punctate left renal calculus suspected on image 37. No hydronephrosis is identified. The large and small bowel demonstrate no obstruction. Moderate stool is seen in the colon. Formed stool seen in the distal small bowel. No focal inflammatory changes identified. No free intraperitoneal fluid or gas is identified. The aorta is normal in caliber. There is no lymphadenopathy. No filling defects seen in the urinary bladder. Degenerative changes noted in the spine. No aggressive bony lesions. IMPRESSION: Constipation. No focal inflammatory changes of the bowel Suspected nonobstructing left renal calculus Other incidental findings, as above Interpreted by: Prosper Quinones MD Preliminary Report By: Prosper Quinones MD Electronically signed By Prosper Quinones MD Dictated Date: 07/21/2023 5:43:18 PM Prelim Date: 07/21/2023 5:47:51 PM Sign Date: 07/21/2023 5:47:51 PM Ordering Provider: NIDAL CHOUJAA [facility] 03-08-2023 Hospital Discharge instructions Patient Education 03/08/2023 13:17:16 URI, Viral, No Abx (Adult) Viral Upper Respiratory Illness (Adult) You have a viral upper respiratory illness (URI), which is another term for the common cold. This illness is contagious during the first few days. It is spread through the air by coughing and sneezing. It may also be spread by direct contact (touching the sick person and then touching your own eyes, nose, or mouth). Frequent handwashing will decrease risk of spread. Most viral illnesses go away within 7 to 10 days with rest and simple home remedies. Sometimes the illness may last for several weeks. Antibiotics will not kill a virus, and they are generally not prescribed for this condition. Home care If symptoms are severe, rest at home for the first 2 to 3 days. When you resume activity, don't let yourself get too tired. Don't smoke. If you need help stopping, talk with your healthcare provider. Avoid being exposed to cigarette smoke (yours or others ). You may use acetaminophen or ibuprofen to control pain and fever, unless another medicine was prescribed. If you have chronic liver or kidney disease, have ever had a stomach ulcer or gastrointestinal bleeding, or are taking blood-thinning medicines, talk with your healthcare provider before using these medicines. Aspirin should never be given to anyone under 18 years of age who is ill with a viral infection or fever. It may cause severe liver or brain damage. Your appetite may be poor, so a light diet is fine. Stay well hydrated by drinking 6 to 8 glasses of fluids per day (water, soft drinks, juices, tea, or soup). Extra fluids will help loosen secretions in the nose and lungs. Pghf-lld-scffgva cold medicines will not shorten the length of time you re sick, but they may be helpful for the following symptoms: cough, sore throat, and nasal and sinus congestion. If you take prescription medicines, ask your healthcare provider or pharmacist which knfp-uym-xspdipk medicines are safe to use. (Note: Don't use decongestants if you have high blood pressure.) Follow-up care Follow up with your healthcare provider, or as advised. When to seek medical advice Call your healthcare provider right away if any of these occur: Cough with lots of colored sputum (mucus) Severe headache; face, neck, or ear pain Difficulty swallowing due to throat pain Fever of 100.4 F (38 C) or higher, or as directed by your healthcare provider Call 911 Call 911 if any of these occur: Chest pain, shortness of breath, wheezing, or difficulty breathing Coughing up blood Very severe pain with swallowing, especially if it goes along with a muffled voice [phone] The [employer]. [address] [place] [address]. All rights reserved. This information is not intended as a substitute for professional medical care. Always follow your healthcare professional's instructions. Follow Up Care 03/08/2023 11:58:09 With:FLORI WETZEL DO Address: [address] [place] [phone] When:2-4 days [facility] 03-08-2023 Note Discharge Instructions Thank you for allowing [facility] to assist you with your healthcare needs. The following is important discharge information regarding your hospital visit. Diagnosis from Today's Visit URTI - Viral upper respiratory tract infection Cough What to Do Next Instructions from Your Care Team Claritin for congestion during the day. You may use Benadryl at night for the congestion as it may make you sleepy and you should not take it during the day. No qualifying data available. Post Acute Orders No qualifying data available. You Need to Schedule the Following Appointments Follow Up with FLORI WETZEL DO When Within 2-4 days Where: [address] [place] [phone] Allergies predniSONE (Sweats) Ceclor (Hives) Pediazole (Weakness, Flushing, Nausea) Suprax (Weakness, Flushing, Nausea) Tape Tylenol (Nausea) Vicodin (Nausea) erythromycin (Diarrhea) penicillin (Pruritus, Rash) traMADol (Hives) Medications Please ask your primary doctor or pharmacist before taking any other medication not listed, including over the counter drugs, herbal medications, vitamins and or supplements as they may interact with your home medications. What How Much When Why Instructions Last Dose New albuterol (ProAir HFA MDI (90 mcg/ inh) inhalation aerosol) 1 puff(s) by inhalation Every 6 hours URTI - Viral upper respiratory tract infection Printed Prescription Unchanged ARIPiprazole (Abilify 2 mg oral tablet) 0.5 tab(s) by mouth Once a day Duration: 30 Days Unchanged doxycycline (doxycycline hyclate 100 mg oral capsule) 1 cap by mouth Two (2) times a day Acute sinusitis Duration: 10 Days Unchanged lamoTRIgine (lamoTRIgine 250 mg oral tablet, extended release) 1 tab(s) by mouth Once a day Bipolar disorder Unchanged LORazepam (LORazepam 1 mg oral tablet) 1 tab(s) by mouth Every 8 hours Anxiety Duration: 30 Days if needed for anxiety Unchanged metoprolol (Kapspargo Sprinkle 25 mg oral capsule, extended release) 1 cap by mouth Once a day Please take this list to your next doctor s visit. Bring all medications you take, including over the counter medications, herbals and other supplements with you to your doctor s visit. Patients and families are reminded to discard old lists and to update any records with all medication providers or retail pharmacies. Medication Leaflets albuterol (oral) (al BUE ter ol) What is the most important information I should know about albuterol? Follow all directions on your medicine label and package. Tell each of your healthcare providers about all your medical conditions, allergies, and all medicines you use. What is albuterol? Albuterol oral is a bronchodilator taken by mouth to treat bronchospasm (wheezing, shortness of breath). Albuterol is for use in adults and children at least 6 years old. Albuterol may also be used for purposes not listed in this medication guide. What should I discuss with my healthcare provider before taking albuterol? You should not use albuterol if you are allergic to it. Tell your doctor if you have ever had: heart problems, a heart attack, or coronary artery disease (clogged arteries); high blood pressure; epilepsy or other seizure disorder; diabetes; or overactive thyroid. Older adults may be more sensitive to the effects of this medicine. It is not known whether this medicine will harm an unborn baby. Tell your doctor if you are or plan to become . You should not breastfeed while you are taking albuterol. How should I take albuterol? Follow all directions on your prescription label and read all medication guides or instruction sheets. Use the medicine exactly as directed. Albuterol can have long-lasting effects (up to 8 hours or longer). Do not take this medication more often than prescribed. Albuterol is not a rescue medicine for bronchospasm attacks. Use only fast-acting inhalation medicine for an attack. Seek medical attention if your breathing problems get worse quickly, or if you think your medications are not working as well. Use all asthma or COPD medications as directed. Your dose needs may change due to surgery, illness, stress, or a recent asthma attack. Do not change your dose or dosing schedule without your doctor's advice. Tell your doctor if any of your medicines seem to stop working. Swallow the extended-release tablet whole and do not crush, chew, or break it. Measure liquid medicine carefully. Use the dosing syringe provided, or use a medicine dose-measuring device (not a kitchen spoon). Store at room temperature away from moisture, heat, and light. Keep the bottle tightly closed when not in use. Do not freeze. What happens if I miss a dose? Take the missed dose as soon as you remember. Skip the missed dose if it is almost time for your next scheduled dose. Do not take extra medicine to make up the missed dose. What happens if I overdose? Seek emergency medical attention or call the Poison Help line at . An overdose of albuterol can be fatal. What should I avoid while taking albuterol? Avoid taking diet pills or cold medicine that contains a decongestant (phenylephrine, pseudoephedrine). What are the possible side effects of albuterol? Get emergency medical help if you have signs of an allergic reaction (hives, difficult breathing, swelling in your face or throat) or a severe skin reaction (fever, sore throat, burning eyes, skin pain, red or purple skin rash with blistering and peeling). Call your doctor at once if you have: wheezing, choking, or other breathing problems after using this medicine; fast or pounding heartbeats or fluttering in your chest; severe headache, blurred vision, pounding in your neck or ears; chest pain; severe dizziness; a seizure; worsening asthma or COPD symptoms; or low potassium level--leg cramps, constipation, irregular heartbeats, fluttering in your chest, increased thirst or urination, numbness or tingling, muscle weakness or limp feeling. Common side effects may include: chest pain, fast heartbeats; tremors, nervousness; headache; dry mouth, throat irritation; or unusual or unpleasant taste in your mouth; This is not a complete list of side effects and others may occur. Call your doctor for medical advice about side effects. You may report side effects to FDA at 3-458-HFT-0284. What other drugs will affect albuterol? Tell your doctor about all other medicines you have used in the past 2 weeks, especially: digoxin; a diuretic or 'water pill'; an inhaled bronchodilator; an antidepressant--amitriptyline, doxepin, imipramine, nortriptyline, and others; a beta-perla--atenolol, carvedilol, metoprolol, propranolol, sotalol, and others; or an MAO inhibitor--isocarboxazid, linezolid, methylene blue injection, phenelzine, rasagiline, selegiline, tranylcypromine, and others. This list is not complete. Other drugs may affect albuterol, including prescription and rtdv-bhx-oapbdvm medicines, vitamins, and herbal products. Not all possible drug interactions are listed here. Where can I get more information? Your pharmacist can provide more information about albuterol. Remember, keep this and all other medicines out of the reach of children, never share your medicines with others, and use this medication only for the indication prescribed. Every effort has been made to ensure that the information provided by [employer]') is accurate, up-to-date, and complete, but no guarantee is made to that effect. Drug information contained herein may be time sensitive. [employer] information has been compiled for use by healthcare practitioners and consumers in the [place] and therefore [employer] does not warrant that uses outside of the [place] are appropriate, unless specifically indicated otherwise. [employer]'s drug information does not endorse drugs, diagnose patients or recommend therapy. [employer] drug information is an informational resource designed to assist licensed healthcare practitioners in caring for their patients and/or to serve consumers viewing this service as a supplement to, and not a substitute for, the expertise, skill, knowledge and judgment of healthcare practitioners. The absence of a warning for a given drug or drug combination in no way should be construed to indicate that the drug or drug combination is safe, effective or appropriate for any given patient. [facility] does not assume any responsibility for any aspect of healthcare administered with the aid of information [facility] provides. The information contained herein is not intended to cover all possible uses, directions, precautions, warnings, drug interactions, allergic reactions, or adverse effects. If you have questions about the drugs you are taking, check with your doctor, nurse or pharmacist. Copyright 8362-6793 [employer]. Version: 3.01. Revision Date: 08/30/2019. Education Materials Viral Upper Respiratory Illness (Adult) You have a viral upper respiratory illness (URI), which is another term for the common cold. This illness is contagious during the first few days. It is spread through the air by coughing and sneezing. It may also be spread by direct contact (touching the sick person and then touching your own eyes, nose, or mouth). Frequent handwashing will decrease risk of spread. Most viral illnesses go away within 7 to 10 days with rest and simple home remedies. Sometimes the illness may last for several weeks. Antibiotics will not kill a virus, and they are generally not prescribed for this condition. Home care If symptoms are severe, rest at home for the first 2 to 3 days. When you resume activity, don't let yourself get too tired. Don't smoke. If you need help stopping, talk with your healthcare provider. Avoid being exposed to cigarette smoke (yours or others ). You may use acetaminophen or ibuprofen to control pain and fever, unless another medicine was prescribed. If you have chronic liver or kidney disease, have ever had a stomach ulcer or gastrointestinal bleeding, or are taking blood-thinning medicines, talk with your healthcare provider before using these medicines. Aspirin should never be given to anyone under 18 years of age who is ill with a viral infection or fever. It may cause severe liver or brain damage. Your appetite may be poor, so a light diet is fine. Stay well hydrated by drinking 6 to 8 glasses of fluids per day (water, soft drinks, juices, tea, or soup). Extra fluids will help loosen secretions in the nose and lungs. Fewf-jkj-muvkldc cold medicines will not shorten the length of time you re sick, but they may be helpful for the following symptoms: cough, sore throat, and nasal and sinus congestion. If you take prescription medicines, ask your healthcare provider or pharmacist which esou-xqc-nyvgbxc medicines are safe to use. (Note: Don't use decongestants if you have high blood pressure.) Follow-up care Follow up with your healthcare provider, or as advised. When to seek medical advice Call your healthcare provider right away if any of these occur: Cough with lots of colored sputum (mucus) Severe headache; face, neck, or ear pain Difficulty swallowing due to throat pain Fever of 100.4 F (38 C) or higher, or as directed by your healthcare provider Call 911 Call 911 if any of these occur: Chest pain, shortness of breath, wheezing, or difficulty breathing Coughing up blood Very severe pain with swallowing, especially if it goes along with a muffled voice [phone] The [employer]. [address] [place] [address]. All rights reserved. This information is not intended as a substitute for professional medical care. Always follow your healthcare professional's instructions. Additional Information VACCINATE! IT SAVES LIVES! Members of the community who have not yet received the COVID-19 vaccine and would like to receive it can visit one of [facility] vaccine clinics. There are many vaccine clinic locations within the [facility]. For locations and available times, please visit [email or web address] [email or web address] It is important to note that some COVID mobile vaccine clinics are held outdoors and may be canceled in rainy or stormy conditions. To learn more about pediatric vaccinations (ages 5-11), we invite you to visit the [facility] webpage. https://www.[facility].org/pa ges/4677-Cycoc-Ldgttnexptq-Freque jtfh-Xcamx-Htueiiqlz.html To learn more about the COVID-19 vaccine, we invite you to visit the CDC website for a list of frequently asked questions. https://www.cdc.gov/coronavirus/2 019-ncov/vaccines/faq.html [facility] Patient Portal Access Instructions: Stay connected with your healthcare team and access your personal medical information anytime with the [facility] Patient Portal. If you would like a full copy of your medical records please contact the [facility] Medical Records Department Monday through Monday between 8a.m. and 4:30p.m. Please follow the directions below to access the portal: 1.Access the email account you provided upon registration to the hospital.2.Look for an invitation email from [facility].3.Open the email and access the invitation link: Accept Invitation to [facility]4.Fill in the required somers to create your account. Sign into [email or web address] with your username and password that you created in the above steps to stay up to date. You can then view a summary of results, a summary of your visits, and the ability to download your summaries to your computer or send the information securely to a physician. Remember that your healthcare information is confidential, so carefully consider who you will allow to register on the [facility] Patient Portal for access to your information. You can also access the [facility] Patient Portal on the [employer] dominique. Simply click on Health Records under Health Data and then click on the [employer] logo. HOW TO SAFELY DISPOSE OF PRESCRIPTION MEDICATIONS Please use one of the following methods to safely dispose of your unused medications. 1.Use a drug disposal kit: the drug disposal pouch allows you to safely discard your old and unused drugs. Ask your nurse to give you one when you are discharged.2.Visit a local take-back location: Many local pharmacies and police departments have programs that collect old and unwanted prescription drugs. Call your local pharmacy or go to http://bit.248 [employer]/7Q3Qu4t to find one close to you.3.Make use of household items: Use cat litter or old coffee grounds to dispose medications if other options are not available. Mix your drugs with these household products, seal them in an airtight container and throw it into the garbage. Call [facility]: [phone] to be sure your drugs can be disposed of in this way. Some medicines may require a different approach.4.Never flush your medications down the toilet. IF YOU HAVE BEEN PRESCRIBED AN OPIOIDS FOR PAIN If you have been prescribed an opioid (such as hydrocodone, oxycodone or morphine), it is critical to understand the possible side effects and risks of opioid pain medications. Even when taken as directed, opioids can have several side effects including: Tolerance, meaning you might need to take more of a medication for the same pain relief. Nausea, vomiting and/or constipation. Sleepiness, dizziness, dry mouth, confusion, depression or itching. Physical dependence, meaning you have withdrawal symptoms when a medication is stopped ? this can develop within a few days. KNOW YOUR RESPONSIBILITIES It is important to know exactly how much and how often to take the opioid pain medications you are prescribed. Never take opioids in higher amounts or more often than prescribed. Do not combine opioids with alcohol or other drugs that cause drowsiness, such as benzodiazepines, also known as benzos, including diazepam and alprazolam, muscle relaxants or sleep aids. Never sell or share prescription opioids. This is illegal. Store opioids in a secure place and out of reach of others (including children, family, friends and visitors). The last page(s) of this document has been signed and retained as a CHART COPY Signatures Patient Education Materials URI, Viral, No Abx (Adult) Medication Leaflets albuterol inhalation My discharge plan and instructions have been reviewed and explained to me and ITHANIA JENNIFER L understand my current condition and have read and understand these discharge instructions. I have received a written copy of the plan/instructions. If I have questions, I am aware that I should contact my doctor. 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 Heart size and mediastinal contours are within normal limits for age and projection. No acute skeletal abnormality. IMPRESSION: No acute cardiopulmonary process. Interpreted by: Misael Caal MD Preliminary Report By: Misael Caal MD Electronically signed By Misael Caal MD Dictated Date: 03/08/2023 12:42:13 PM Prelim Date: 03/08/2023 12:42:37 PM Sign Date: 03/08/2023 12:42:37 PM [facility] Note ORIGINAL EXAMINATION: TWO XRAY VIEWS OF THE CHEST03/08/2023 12:40 pm XR Chest two views COMPARISON: 05/12/2022 HISTORY: ORDERING SYSTEM PROVIDED HISTORY: Reason for Exam: cough, cough for several weeks, history of smoking FINDINGS: No suspicious nodule, acute infiltrate, consolidation,mass, pneumothorax, pleural fluid, or vascular congestion is seen. Heart size and mediastinal contours are within normal limits for age and projection. No acute skeletal abnormality. IMPRESSION: No acute cardiopulmonary process. Interpreted by: Misael Caal MD Preliminary Report By: Misael Caal MD Electronically signed By Misael Caal MD Dictated Date: 03/08/2023 12:42:13 PM Prelim Date: 03/08/2023 12:42:37 PM Sign Date: 03/08/2023 12:42:37 PM [facility] Discharge instructions Patient Education 01/02/2023 20:01:30 Headache, Unspecified Headache, Unspecified A number of things can cause headaches. The cause of your headache isn t clear. But it doesn t seem to be a sign of any serious illness. Headache affects almost everyone at some time. It is the most common reason people miss days from work or school. You could have a tension headache or a migraine headache. Stress can cause a tension headache. This can happen if you tense the muscles of your shoulders, neck, and scalp without knowing it. If this stress lasts long enough, you may develop a tension headache. It is not clear why migraines occur, but certain things called triggers can raise the risk of having a migraine attack. Migraine triggers may include emotional stress or depression, or by hormone changes during the menstrual cycle. Other triggers include control pills and other medicines, alcohol or caffeine, foods with tyramine (such as aged cheese, wine), eyestrain, weather changes, missed meals, and lack of sleep or oversleeping. Other causes of headache include: Viral illness with high fever Head injury with concussion Sinus, ear, or throat infection Dental pain and jaw joint (TMJ) pain More serious but less common causes of headache include stroke, brain hemorrhage, brain tumor, meningitis, and encephalitis. Home care Follow these tips when taking care of yourself at home: Don t drive yourself home if you were given pain medicine for your headache. Instead, have someone else drive you home. Try to sleep when you get home. You should feel much better when you wake up. Apply heat to the back of your neck to ease a neck muscle spasm. Take care of a migraine headache by putting an ice pack on your forehead or at the base of your skull. If you have nausea or vomiting, eat a light diet until your headache eases. If you have a migraine headache, use sunglasses when in the daylight or around bright indoor lighting until your symptoms get better. Bright glaring light can make this type of headache worse. Follow-up care Follow up with your healthcare provider, or as advised. Talk with your provider if you have frequent headaches. He or she can help figure out a treatment plan. By knowing the earliest signs of headache, and starting treatment right away, you may be able to stop the pain yourself. When to seek medical advice Call your healthcare provider right away if any of these occur: Your head pain suddenly gets worse after sexual intercourse or strenuous activity Your head pain doesn t get better within 24 hours You aren t able to keep liquids down (repeated vomiting) Fever of 100.4 F (38 C) or higher, or as directed by your healthcare provider Stiff neck Extreme drowsiness, confusion, or fainting Dizziness or dizziness with spinning sensation (vertigo) Weakness in an arm or leg or one side of your face You have trouble talking or seeing [id number] [employer]. [address] [place] [address], [place] [address]. All rights reserved. This information is not intended as a substitute for professional medical care. Always follow your healthcare professional's instructions. Follow Up Care 01/02/2023 19:24:48 With:FLORI WETZEL DO Address: [address] [place] [id number] [phone] When:2-4 days [facility] 01-02-2023 Note Discharge Instructions Thank you for allowing [facility] to assist you with your healthcare needs. The following is important discharge information regarding your hospital visit. Diagnosis from Today's Visit Dizziness Headache What to Do Next Instructions from Your Care Team No qualifying data available. Post Acute Orders No qualifying data available. You Need to Schedule the Following Appointments Follow Up with FLORI WETZEL DO When Within 2-4 days Where: [address] [place] [id number] [phone] Allergies predniSONE (Sweats) Ceclor (Hives) Pediazole (Weakness, Flushing, Nausea) Suprax (Weakness, Flushing, Nausea) Tape Tylenol (Nausea) Vicodin (Nausea) erythromycin (Diarrhea) penicillin (Pruritus, Rash) traMADol (Hives) Medications Please ask your primary doctor or pharmacist before taking any other medication not listed, including over the counter drugs, herbal medications, vitamins and or supplements as they may interact with your home medications. What How Much When Why Instructions Last Dose New meclizine (meclizine 25 mg oral tablet) 1 tab(s) by mouth Three (3) times a day Duration: 5 Days Printed Prescription Unchanged amitriptyline (amitriptyline 10 mg oral tablet) 1 to 3 tabs by mouth Daily at bedtime Cervical radicular pain Duration: 14 Days Unchanged ARIPiprazole (Abilify 2 mg oral tablet) 1 tab(s) by mouth Once a day Duration: 30 Days Unchanged clonazePAM (clonazepam 2 mg oral tablet) 1 tab(s) by mouth Two (2) times a day Anxiety Duration: 11 Days Unchanged lamoTRIgine (LaMICtal 100 mg oral tablet) 1 tab(s) by mouth Once a day Duration: 30 Days Unchanged lamoTRIgine (LaMICtal 150 mg oral tablet) 1 tab(s) by mouth Once a day Unchanged lamoTRIgine (LaMICtal 25 mg oral tablet) 1 tab(s) by mouth Once a day (in the morning) Unchanged metoprolol (Kapspargo Sprinkle 25 mg oral capsule, extended release) 1 cap by mouth Once a day Please take this list to your next doctor s visit. Bring all medications you take, including over the counter medications, herbals and other supplements with you to your doctor s visit. Patients and families are reminded to discard old lists and to update any records with all medication providers or retail pharmacies. Education Materials Headache, Unspecified A number of things can cause headaches. The cause of your headache isn t clear. But it doesn t seem to be a sign of any serious illness. Headache affects almost everyone at some time. It is the most common reason people miss days from work or school. You could have a tension headache or a migraine headache. Stress can cause a tension headache. This can happen if you tense the muscles of your shoulders, neck, and scalp without knowing it. If this stress lasts long enough, you may develop a tension headache. It is not clear why migraines occur, but certain things called triggers can raise the risk of having a migraine attack. Migraine triggers may include emotional stress or depression, or by hormone changes during the menstrual cycle. Other triggers include control pills and other medicines, alcohol or caffeine, foods with tyramine (such as aged cheese, wine), eyestrain, weather changes, missed meals, and lack of sleep or oversleeping. Other causes of headache include: Viral illness with high fever Head injury with concussion Sinus, ear, or throat infection Dental pain and jaw joint (TMJ) pain More serious but less common causes of headache include stroke, brain hemorrhage, brain tumor, meningitis, and encephalitis. Home care Follow these tips when taking care of yourself at home: Don t drive yourself home if you were given pain medicine for your headache. Instead, have someone else drive you home. Try to sleep when you get home. You should feel much better when you wake up. Apply heat to the back of your neck to ease a neck muscle spasm. Take care of a migraine headache by putting an ice pack on your forehead or at the base of your skull. If you have nausea or vomiting, eat a light diet until your headache eases. If you have a migraine headache, use sunglasses when in the daylight or around bright indoor lighting until your symptoms get better. Bright glaring light can make this type of headache worse. Follow-up care Follow up with your healthcare provider, or as advised. Talk with your provider if you have frequent headaches. He or she can help figure out a treatment plan. By knowing the earliest signs of headache, and starting treatment right away, you may be able to stop the pain yourself. When to seek medical advice Call your healthcare provider right away if any of these occur: Your head pain suddenly gets worse after sexual intercourse or strenuous activity Your head pain doesn t get better within 24 hours You aren t able to keep liquids down (repeated vomiting) Fever of 100.4 F (38 C) or higher, or as directed by your healthcare provider Stiff neck Extreme drowsiness, confusion, or fainting Dizziness or dizziness with spinning sensation (vertigo) Weakness in an arm or leg or one side of your face You have trouble talking or seeing [id number] [employer]. [address] [place] [address]. All rights reserved. This information is not intended as a substitute for professional medical care. Always follow your healthcare professional's instructions. Additional Information VACCINATE! IT SAVES LIVES! Members of the community who have not yet received the COVID-19 vaccine and would like to receive it can visit one of [facility] vaccine clinics. There are many vaccine clinic locations within the [facility]. For locations and available times, please visit [email or web address] It is important to note that some COVID mobile vaccine clinics are held outdoors and may be canceled in rainy or stormy conditions. To learn more about pediatric vaccinations (ages 5-11), we invite you to visit the [facility] webpage. [email or web address] To learn more about the COVID-19 vaccine, we invite you to visit the CDC website for a list of frequently asked questions. https://www.cdc.gov/coronavirus/2 019-ncov/vaccines/faq.html [facility] Patient Portal Access Instructions: Stay connected with your healthcare team and access your personal medical information anytime with the [facility] Patient Portal. If you would like a full copy of your medical records please contact the [facility] Medical Records Department Monday through Monday between 8a.m. and 4:30p.m. Please follow the directions below to access the portal: 1.Access the email account you provided upon registration to the hospital.2.Look for an invitation email from [facility].3.Open the email and access the invitation link: Accept Invitation to [facility] [employer]4.Fill in the required somers to create your account. Sign into [email or web address] with your username and password that you created in the above steps to stay up to date. You can then view a summary of results, a summary of your visits, and the ability to download your summaries to your computer or send the information securely to a physician. Remember that your healthcare information is confidential, so carefully consider who you will allow to register on the [facility] Patient Portal for access to your information. You can also access the [facility] Patient Portal on the [employer]. Simply click on Health Records under Health Data and then click on the [employer] logo. HOW TO SAFELY DISPOSE OF PRESCRIPTION MEDICATIONS Please use one of the following methods to safely dispose of your unused medications. 1.Use a drug disposal kit: the drug disposal pouch allows you to safely discard your old and unused drugs. Ask your nurse to give you one when you are discharged.2.Visit a local take-back location: Many local pharmacies and police departments have programs that collect old and unwanted prescription drugs. Call your local pharmacy or go to http://RotoHog.248 [employer]State/8A8Ku4h to find one close to you.3.Make use of household items: Use cat litter or old coffee grounds to dispose medications if other options are not available. Mix your drugs with these household products, seal them in an airtight container and throw it into the garbage. Call [facility]: [phone] to be sure your drugs can be disposed of in this way. Some medicines may require a different approach.4.Never flush your medications down the toilet. IF YOU HAVE BEEN PRESCRIBED AN OPIOIDS FOR PAIN If you have been prescribed an opioid (such as hydrocodone, oxycodone or morphine), it is critical to understand the possible side effects and risks of opioid pain medications. Even when taken as directed, opioids can have several side effects including: Tolerance, meaning you might need to take more of a medication for the same pain relief. Nausea, vomiting and/or constipation. Sleepiness, dizziness, dry mouth, confusion, depression or itching. Physical dependence, meaning you have withdrawal symptoms when a medication is stopped ? this can develop within a few days. KNOW YOUR RESPONSIBILITIES It is important to know exactly how much and how often to take the opioid pain medications you are prescribed. Never take opioids in higher amounts or more often than prescribed. Do not combine opioids with alcohol or other drugs that cause drowsiness, such as benzodiazepines, also known as benzos, including diazepam and alprazolam, muscle relaxants or sleep aids. Never sell or share prescription opioids. This is illegal. Store opioids in a secure place and out of reach of others (including children, family, friends and visitors). The last page(s) of this document has been signed and retained as a CHART COPY Signatures Patient Education Materials Headache, Unspecified Medication Leaflets My discharge plan and instructions have been reviewed and explained to me and I,LEONEL MONTEIRO understand my current condition and have read and understand these discharge instructions. I have received a written copy of the plan/instructions. If I have questions, I am aware that I should contact my doctor. 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 Sleeping with your neck in a crooked position can also cause spasm. Some people respond to emotional stress by tensing the muscles of their neck, shoulders, and upper back. If neck spasm lasts long enough, it can cause a headache. The treatment described below will usually help the pain to go away in 5 to 7 days. Pain that continues may need further evaluation or other types of treatment such as physical therapy. Home care Rest and relax the muscles. Use a comfortable pillow that supports the head and keeps the spine in a neutral position. The position of the head should not be tilted forward or backward. A rolled up towel may help for a custom fit. Some people find relief with heat. Heat can be applied with either a warm shower or bath or a moist towel heated in the microwave and massage. Others prefer cold packs. You can make an ice pack by filling a plastic bag that seals at the top with ice cubes or crushed ice and then wrapping it with a thin towel. Try both and use the method that feels best for 15 to 20 minutes, several times a day. Whether using ice or heat, be careful that you don't injure your skin. Never put ice directly on the skin. Always wrap the ice in a towel or other type of cloth. This is very important, especially in people with poor skin sensation. Try to reduce your stress level. Emotional stress can lead to neck muscle tension and get in the way of or delay the healing process. You may use [id number]-[id number] pain medicine to control pain, unless another medicine was prescribed. If you have chronic liver or kidney disease or ever had a stomach ulcer or gastrointestinal bleeding, talk with your healthcare provider before using these medicines. Follow-up care Follow up with your healthcare provider if your symptoms don't show signs of improvement after one week. Physical therapy or further tests may be needed. If X-rays, CT scans, or MRI scans were taken, you will be told of any new findings that may affect your care. Call 911 Call 911 if you have: Sudden weakness or numbness in one or both arms or legs Neck swelling, trouble with or painful swallowing Trouble breathing Chest pain When to seek medical advice Call your healthcare provider right away if any of these occur: Pain becomes worse or spreads into one or both arms or legs Increasing headache with nausea or vomiting Fever of 100.4 F (38 C) or higher, or as directed by your healthcare provider Mitch [phone] [employer]. [address] [place] [address], [place] [address]. All rights reserved. This information is not intended as a substitute for professional medical care. Always follow your healthcare professional's instructions. Follow Up Care 11/03/2022 11:20:58 With:RASHEED THAPA Address: [address] [place] [id number] [phone] When:2-4 days [facility] 11-03-2022 Note Discharge Instructions Thank you for allowing [facility] to assist you with your healthcare needs. The following is important discharge information regarding your hospital visit. Diagnosis from Today's Visit Neck pain Neck pain Shoulder pain-swelling What to Do Next Instructions from Your Care Team No qualifying data available. Post Acute Orders No qualifying data available. You Need to Schedule the Following Appointments Follow Up with RASHEED THAPA When Within 2-4 days Where: [address] [place] [phone] Allergies predniSONE (Sweats) Ceclor (Hives) Pediazole (Weakness, Flushing, Nausea) Suprax (Weakness, Flushing, Nausea) Tape Tylenol (Nausea) Vicodin (Nausea) erythromycin (Diarrhea) penicillin (Pruritus, Rash) traMADol (Hives) Medications Please ask your primary doctor or pharmacist before taking any other medication not listed, including over the counter drugs, herbal medications, vitamins and or supplements as they may interact with your home medications. What How Much When Why Instructions Last Dose New cyclobenzaprine (Flexeril use cyclobenzaprine ) 10 Milligram by mouth Two (2) times a day Neck pain Duration: 10 Days Printed Prescription New methylPREDNISolone (Medrol 4 mg oral tablet) 6-5-4-3-2-1 tab(s) by mouth Every day Neck pain Duration: 6 Days 24mg day 1, 20mg day 2, 16mg day 3, 12 mg day 4, 8mg day 5, 4mg day 6 Printed Prescription Unchanged ARIPiprazole (Abilify 2 mg oral tablet) 1 tab(s) by mouth Once a day Duration: 30 Days Unchanged clonazePAM (clonazepam 2 mg oral tablet) 1 tab(s) by mouth Two (2) times a day Anxiety Duration: 30 Days Unchanged hydrOXYzine (Vistaril 50 mg oral capsule) 1 cap by mouth Four (4) times a day as needed for as needed for anxiety Unchanged lamoTRIgine (LaMICtal 100 mg oral tablet) 1 tab(s) by mouth Once a day Duration: 30 Days Unchanged lamoTRIgine (LaMICtal 25 mg oral tablet) 3 tab(s) by mouth Once a day (in the morning) Unchanged lamoTRIgine (LaMICtal 25 mg oral tablet) 1 tab(s) by mouth Two (2) times a day Duration: 30 Days Unchanged metoprolol (Kapspargo Sprinkle 25 mg oral capsule, extended release) 1 cap by mouth Once a day Unchanged PHENobarbital (PHENobarbital 30 mg oral tablet) 1 tab(s) by mouth Three (3) times a day Alcohol abuse with withdrawal Duration: 14 Days Unchanged spironolactone (spironolactone 25 mg oral tablet) 1 tab(s) by mouth Once a day Duration: 30 Days Please take this list to your next doctor s visit. Bring all medications you take, including over the counter medications, herbals and other supplements with you to your doctor s visit. Patients and families are reminded to discard old lists and to update any records with all medication providers or retail pharmacies. Medication Leaflets cyclobenzaprine (jt calrisle) Lupe Valencia with CyclobenzaprineJagruti What is the most important information I should know about cyclobenzaprine? You should not use cyclobenzaprine if you have a thyroid disorder, heart block, congestive heart failure, a heart rhythm disorder, or you have recently had a heart attack. Do not use cyclobenzaprine if you have taken an MAO inhibitor in the past 14 days, such as isocarboxazid, linezolid, phenelzine, rasagiline, selegiline, or tranylcypromine. What is cyclobenzaprine? Cyclobenzaprine is a muscle relaxant. It works by blocking nerve impulses (or pain sensations) that are sent to your brain. Cyclobenzaprine is used together with rest and physical therapy to relieve muscle spasms caused by painful conditions such as an injury. Cyclobenzaprine may also be used for purposes not listed in this medication guide. What should I discuss with my healthcare provider before taking cyclobenzaprine? You should not use cyclobenzaprine if you are allergic to it, or if you have: a thyroid disorder; heart block, heart rhythm disorder, congestive heart failure; or if you have recently had a heart attack. Cyclobenzaprine is not approved for use by anyone younger than 15 years old. Do not use cyclobenzaprine if you have taken an MAO inhibitor in the past 14 days. A dangerous drug interaction could occur. MAO inhibitors include isocarboxazid, linezolid, phenelzine, rasagiline, selegiline, and tranylcypromine. Some medicines can interact with cyclobenzaprine and cause a serious condition called serotonin syndrome. Be sure your doctor knows if you also take stimulant medicine, opioid medicine, herbal products, or medicine for depression, mental illness, Parkinson's disease, migraine headaches, serious infections, or prevention of nausea and vomiting. Ask your doctor before making any changes in how or when you take your medications. Tell your doctor if you have ever had: liver disease; glaucoma; enlarged prostate; or problems with urination. It is not known whether this medicine will harm an unborn baby. Tell your doctor if you are or plan to become . It may not be safe to breast-feed while using this medicine. Ask your doctor about any risk. Older adults may be more sensitive to the effects of this medicine. How should I take cyclobenzaprine? Follow all directions on your prescription label and read all medication guides or instruction sheets. Your doctor may occasionally change your dose. Use the medicine exactly as directed. Cyclobenzaprine is usually taken once daily for only 2 or 3 weeks. Follow your doctor's dosing instructions very carefully. Swallow the capsule whole and do not crush, chew, break, or open it. Take the medicine at the same time each day. Call your doctor if your symptoms do not improve after 3 weeks, or if they get worse. Store at room temperature away from moisture, heat, and light. What happens if I miss a dose? Take the medicine as soon as you can, but skip the missed dose if it is almost time for your next dose. Do not take two doses at one time. What happens if I overdose? Seek emergency medical attention or call the Poison Help line at . An overdose of cyclobenzaprine can be fatal. Overdose symptoms may include severe drowsiness, vomiting, fast heartbeats, tremors, agitation, or hallucinations. What should I avoid while taking cyclobenzaprine? Avoid driving or hazardous activity until you know how this medicine will affect you. Your reactions could be impaired. Avoid drinking alcohol. Dangerous side effects could occur. What are the possible side effects of cyclobenzaprine? Get emergency medical help if you have signs of an allergic reaction: hives; difficult breathing; swelling of your face, lips, tongue, or throat. Stop using cyclobenzaprine and call your doctor at once if you have: fast or irregular heartbeats; chest pain or pressure, pain spreading to your jaw or shoulder; or sudden numbness or weakness (especially on one side of the body), slurred speech, balance problems. Seek medical attention right away if you have symptoms of serotonin syndrome, such as: agitation, hallucinations, fever, sweating, shivering, fast heart rate, muscle stiffness, twitching, loss of coordination, nausea, vomiting, or diarrhea. Serious side effects may be more likely in older adults. Common side effects may include: drowsiness, tiredness; headache, dizziness; dry mouth; or upset stomach, nausea, constipation. This is not a complete list of side effects and others may occur. Call your doctor for medical advice about side effects. You may report side effects to FDA at 3-088-RSV-8278. What other drugs will affect cyclobenzaprine? Using cyclobenzaprine with other drugs that make you drowsy can worsen this effect. Ask your doctor before using opioid medication, a sleeping pill, a muscle relaxer, or medicine for anxiety or seizures. Tell your doctor about all your other medicines, especially: bupropion (Zyban, for smoking cessation); meperidine; tramadol; verapamil; cold or allergy medicine that contains an antihistamine (Benadryl and others); medicine to treat Parkinson's disease; medicine to treat excess stomach acid, stomach ulcer, motion sickness, or irritable bowel syndrome; medicine to treat overactive bladder; or bronchodilator asthma medication. This list is not complete. Other drugs may affect cyclobenzaprine, including prescription and uexh-dof-xejhlqv medicines, vitamins, and herbal products. Not all possible drug interactions are listed here. Where can I get more information? Your pharmacist can provide more information about cyclobenzaprine. Remember, keep this and all other medicines out of the reach of children, never share your medicines with others, and use this medication only for the indication prescribed. Every effort has been made to ensure that the information provided by [employer] is accurate, up-to-date, and complete, but no guarantee is made to that effect. Drug information contained herein may be time sensitive. [employer] information has been compiled for use by healthcare practitioners and consumers in the [place] and therefore [employer] does not warrant that uses outside of the [place] are appropriate, unless specifically indicated otherwise. [employer] drug information does not endorse drugs, diagnose patients or recommend therapy. [employer] drug information is an informational resource designed to assist licensed healthcare practitioners in caring for their patients and/or to serve consumers viewing this service as a supplement to, and not a substitute for, the expertise, skill, knowledge and judgment of healthcare practitioners. The absence of a warning for a given drug or drug combination in no way should be construed to indicate that the drug or drug combination is safe, effective or appropriate for any given patient. [employer] does not assume any responsibility for any aspect of healthcare administered with the aid of information [employer] provides. The information contained herein is not intended to cover all possible uses, directions, precautions, warnings, drug interactions, allergic reactions, or adverse effects. If you have questions about the drugs you are taking, check with your doctor, nurse or pharmacist. Copyright 7269-2779 [employer]. Version: 5.01. Revision Date: 07/04/2018. methylprednisolone (oral) (METH il pred NIS oh lone) Medrol, Medrol Dosepak, MethylPREDNISolone Dose Pack What is the most important information I should know about methylprednisolone? You should not use this medicine if you have a fungal infection anywhere in your body. What is methylprednisolone? Methylprednisolone is a steroid that prevents the release of substances in the body that cause inflammation. Methylprednisolone is used to treat many different inflammatory conditions such as arthritis, lupus, psoriasis, ulcerative colitis, allergic disorders, gland (endocrine) disorders, and conditions that affect the skin, eyes, lungs, stomach, nervous system, or blood cells. Methylprednisolone may also be used for purposes not listed in this medication guide. What should I discuss with my healthcare provider before taking methylprednisolone? You should not use methylprednisolone if you are allergic to it, or if you have: a fungal infection anywhere in your body. Methylprednisolone can weaken your immune system, making it easier for you to get an infection. Steroids can also worsen an infection you already have, or reactivate an infection you recently had. Tell your doctor about any illness or infection you have had within the past several weeks. To make sure methylprednisolone is safe for you, tell your doctor if you have ever had: a thyroid disorder; herpes infection of the eyes; stomach ulcers, ulcerative colitis, or diverticulitis; depression, mental illness, or psychosis; liver disease (especially cirrhosis); high blood pressure; osteoporosis; a muscle disorder such as myasthenia gravis; or multiple sclerosis. Also tell your doctor if you have diabetes. Steroid medicines may increase the glucose (sugar) levels in your blood or urine. You may also need to adjust the dose of your diabetes medications. It is not known whether this medicine will harm an unborn baby. Tell your doctor if you are or plan to become . It is not known whether methylprednisolone passes into breast milk or if it could affect the nursing baby. Tell your doctor if you are breast-feeding. How should I take methylprednisolone? Follow all directions on your prescription label. Your doctor may occasionally change your dose. Do not use this medicine in larger or smaller amounts or for longer than recommended. Methylprednisolone is sometimes taken every other day. Follow your doctor's dosing instructions very carefully. Your dose needs may change if you have unusual stress such as a serious illness, fever or infection, or if you have surgery or a medical emergency. Tell your doctor about any such situation that affects you. This medicine can cause unusual results with certain medical tests. Tell any doctor who treats you that you are using methylprednisolone. You should not stop using methylprednisolone suddenly. Follow your doctor's instructions about tapering your dose. Wear a medical alert tag or carry an ID card stating that you take methylprednisolone. Any medical care provider who treats you should know that you take steroid medication. If you need surgery, tell the surgeon ahead of time that you are using methylprednisolone. You may need to stop using the medicine for a short time. Store at room temperature away from moisture and heat. What happens if I miss a dose? Call your doctor for instructions if you miss a dose of methylprednisolone. What happens if I overdose? Seek emergency medical attention or call the [facility] Help line at . An overdose of methylprednisolone is not expected to produce life threatening symptoms. However, [facility] use of high steroid doses can lead to symptoms such as thinning skin, easy bruising, changes in the shape or location of body fat (especially in your face, neck, back, and waist), increased acne or facial hair, menstrual problems, impotence, or loss of interest in sex. What should I avoid while taking methylprednisolone? Avoid being near people who are sick or have infections. Call your doctor for preventive treatment if you are exposed to chicken pox or measles. These conditions can be serious or even fatal in people who are using steroid medication. Do not receive a 'live' vaccine while using methylprednisolone. The vaccine may not work as well during this time, and may not fully protect you from disease. Live vaccines include measles, mumps, rubella (MMR), polio, rotavirus, typhoid, yellow fever, varicella (chickenpox), zoster (shingles), and nasal flu (influenza) vaccine. What are the possible side effects of methylprednisolone? Get emergency medical help if you have signs of an allergic reaction: hives; difficult breathing; swelling of your face, lips, tongue, or throat. Call your doctor at once if you have: shortness of breath (even with mild exertion), swelling, rapid weight gain; bruising, thinning skin, or any wound that will not heal; blurred vision, tunnel vision, eye pain, or seeing halos around lights; severe depression, changes in personality, unusual thoughts or behavior; new or unusual pain in an arm or leg or in your back; bloody or tarry stools, coughing up blood or vomit that looks like coffee grounds; seizure (convulsions); or low potassium--leg cramps, constipation, irregular heartbeats, fluttering in your chest, increased thirst or urination, numbness or tingling. Steroids can affect growth in children. Tell your doctor if your child is not growing at a normal rate while using this medicine. Common side effects may include: fluid retention (swelling in your hands or ankles); dizziness, spinning sensation; changes in your menstrual periods; headache; mild muscle pain or weakness; or stomach discomfort, bloating. This is not a complete list of side effects and others may occur. Call your doctor for medical advice about side effects. You may report side effects to FDA at 0-715-PGO-6048. What other drugs will affect methylprednisolone? Other drugs may interact with methylprednisolone, including prescription and cchb-iim-vftgrwo medicines, vitamins, and herbal products. Tell each of your health care providers about all medicines you use now and any medicine you start or stop using. Where can I get more information? Your pharmacist can provide more information about methylprednisolone. Remember, keep this and all other medicines out of the reach of children, never share your medicines with others, and use this medication only for the indication prescribed. Every effort has been made to ensure that the information provided by [employer]. [employer]') is accurate, up-to-date, and complete, but no guarantee is made to that effect. Drug information contained herein may be time sensitive. [employer] information has been compiled for use by healthcare practitioners and consumers in the [place] and therefore [employer] does not warrant that uses outside of the [place] are appropriate, unless specifically indicated otherwise. [employer] drug information does not endorse drugs, diagnose patients or recommend therapy. [employer] drug information is an informational resource designed to assist licensed healthcare practitioners in caring for their patients and/or to serve consumers viewing this service as a supplement to, and not a substitute for, the expertise, skill, knowledge and judgment of healthcare practitioners. The absence of a warning for a given drug or drug combination in no way should be construed to indicate that the drug or drug combination is safe, effective or appropriate for any given patient. [employer] does not assume any responsibility for any aspect of healthcare administered with the aid of information [employer] provides. The information contained herein is not intended to cover all possible uses, directions, precautions, warnings, drug interactions, allergic reactions, or adverse effects. If you have questions about the drugs you are taking, check with your doctor, nurse or pharmacist. Copyright 5854-6551 [employer]. Version: 9.01. Revision Date: 06/07/2017. Education Materials Neck Spasm A spasm of the neck muscles can happen after a sudden awkward neck movement. Sleeping with your neck in a crooked position can also cause spasm. Some people respond to emotional stress by tensing the muscles of their neck, shoulders, and upper back. If neck spasm lasts long enough, it can cause a headache. The treatment described below will usually help the pain to go away in 5 to 7 days. Pain that continues may need further evaluation or other types of treatment such as physical therapy. Home care Rest and relax the muscles. Use a comfortable pillow that supports the head and keeps the spine in a neutral position. The position of the head should not be tilted forward or backward. A rolled up towel may help for a custom fit. Some people find relief with heat. Heat can be applied with either a warm shower or bath or a moist towel heated in the microwave and massage. Others prefer cold packs. You can make an ice pack by filling a plastic bag that seals at the top with ice cubes or crushed ice and then wrapping it with a thin towel. Try both and use the method that feels best for 15 to 20 minutes, several times a day. Whether using ice or heat, be careful that you don't injure your skin. Never put ice directly on the skin. Always wrap the ice in a towel or other type of cloth. This is very important, especially in people with poor skin sensation. Try to reduce your stress level. Emotional stress can lead to neck muscle tension and get in the way of or delay the healing process. You may use edhk-oid-naukujt pain medicine to control pain, unless another medicine was prescribed. If you have chronic liver or kidney disease or ever had a stomach ulcer or gastrointestinal bleeding, talk with your healthcare provider before using these medicines. Follow-up care Follow up with your healthcare provider if your symptoms don't show signs of improvement after one week. Physical therapy or further tests may be needed. If X-rays, CT scans, or MRI scans were taken, you will be told of any new findings that may affect your care. Call 911 Call 911 if you have: Sudden weakness or numbness in one or both arms or legs Neck swelling, trouble with or painful swallowing Trouble breathing Chest pain When to seek medical advice Call your healthcare provider right away if any of these occur: Pain becomes worse or spreads into one or both arms or legs Increasing headache with nausea or vomiting Fever of 100.4 F (38 C) or higher, or as directed by your healthcare provider Mitch [id number] The [employer]. [address] [place] [address], [place] [address]. All rights reserved. This information is not intended as a substitute for professional medical care. Always follow your healthcare professional's instructions. Additional Information VACCINATE! IT SAVES LIVES! Members of the community who have not yet received the COVID-19 vaccine and would like to receive it can visit one of [facility] vaccine clinics. There are many vaccine clinic locations within the [facility]. For locations and available times, please visit [email or web address]. It is important to note that some COVID mobile vaccine clinics are held outdoors and may be canceled in rainy or stormy conditions. To learn more about pediatric vaccinations (ages 5-11), we invite you to visit the [facility] webpage. [email or web address] [email or web address]-[email or web address] [email or web address]-[email or web address].html To learn more about the COVID-19 vaccine, we invite you to visit the [facility] website for a list of frequently asked questions. [email or web address] [email or web address] [facility] Patient Portal Access Instructions: Stay connected with your healthcare team and access your personal medical information anytime with the [facility] Patient Portal. If you would like a full copy of your medical records please contact the [facility] Medical Records Department Monday through Monday between 8a.m. and 4:30p.m. Please follow the directions below to access the portal: 1.Access the email account you provided upon registration to the [facility].2.Look for an invitation email from [facility].3.Open the email and access the invitation link: Accept Invitation to [facility]4.Fill in the required somers to create your account. Sign into [email or web address] with your username and password that you created in the above steps to stay up to date. You can then view a summary of results, a summary of your visits, and the ability to download your summaries to your computer or send the information securely to a physician. Remember that your healthcare information is confidential, so carefully consider who you will allow to register on the [facility] Patient Portal for access to your information. You can also access the [facility] Patient Portal on the [employer]. Simply click on Health Records under Health Data and then click on the [employer] logo. HOW TO SAFELY DISPOSE OF PRESCRIPTION MEDICATIONS Please use one of the following methods to safely dispose of your unused medications. 1.Use a drug disposal kit: the drug disposal pouch allows you to safely discard your old and unused drugs. Ask your nurse to give you one when you are discharged.2.Visit a local take-back location: Many local pharmacies and police departments have programs that collect old and unwanted prescription drugs. Call your local pharmacy or go to http://RotoHog.248 [employer]State/5T8At0m to find one close to you.3.Make use of household items: Use cat litter or old coffee grounds to dispose medications if other options are not available. Mix your drugs with these household products, seal them in an airtight container and throw it into the garbage. Call [facility]: [phone] to be sure your drugs can be disposed of in this way. Some medicines may require a different approach.4.Never flush your medications down the toilet. IF YOU HAVE BEEN PRESCRIBED AN OPIOIDS FOR PAIN If you have been prescribed an opioid (such as hydrocodone, oxycodone or morphine), it is critical to understand the possible side effects and risks of opioid pain medications. Even when taken as directed, opioids can have several side effects including: Tolerance, meaning you might need to take more of a medication for the same pain relief. Nausea, vomiting and/or constipation. Sleepiness, dizziness, dry mouth, confusion, depression or itching. Physical dependence, meaning you have withdrawal symptoms when a medication is stopped ? this can develop within a few days. KNOW YOUR RESPONSIBILITIES It is important to know exactly how much and how often to take the opioid pain medications you are prescribed. Never take opioids in higher amounts or more often than prescribed. Do not combine opioids with alcohol or other drugs that cause drowsiness, such as benzodiazepines, also known as benzos, including diazepam and alprazolam, muscle relaxants or sleep aids. Never sell or share prescription opioids. This is illegal. Store opioids in a secure place and out of reach of others (including children, family, friends and visitors). The last page(s) of this document has been signed and retained as a CHART COPY Signatures Patient Education Materials Neck Spasm, No Trauma Medication Leaflets cyclobenzaprine, methylprednisolone (oral) My discharge plan and instructions have been reviewed and explained to me and I,LEONEL MONTEIRO understand my current condition and have read and understand these discharge instructions. I have received a written copy of the plan/instructions. If I have questions, I am aware that I should contact my doctor. 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 Stools often become very hard and difficult to pass. Constipation is very common. At some point in life, it affects almost everyone. Since everyone's bowel habits are different, what is constipation to one person may not be to another. Your healthcare provider may do tests to diagnose constipation. It depends on what he or she finds when evaluating you. Symptoms of constipation include: Abdominal pain Bloating Vomiting Painful bowel movements Itching, swelling, bleeding, or pain around the anus Causes Constipation can have many causes. These include: Diet low in fiber Too much dairy Not drinking enough liquids Lack of exercise or physical activity (especially true for older adults) Changes in lifestyle or daily routine, including , aging, work, and travel Frequent use or misuse of laxatives Ignoring the urge to have a bowel movement or delaying it until later Medicines, such as certain prescription pain medicines, iron supplements, antacids, certain antidepressants, and calcium supplements Diseases like irritable bowel syndrome, bowel obstructions, stroke, diabetes, thyroid disease, Parkinson disease, hemorrhoids, and colon cancer Complications Potential complications of constipation can include: Hemorrhoids Rectal bleeding from hemorrhoids or anal fissures (skin tears) Hernias Dependency on laxatives Chronic constipation Fecal impaction, a severe form of constipation in which a large amount of hard stool is in your rectum that you can't pass Bowel obstruction or perforation Home care All treatment should be done after talking with your healthcare provider. This is especially true if you have another medical problems, are taking prescription medicines, or are an older adult. Treatment most often involves lifestyle changes. You may also need medicines. Your healthcare provider will tell you which will work best for you. Follow the advice below to help avoid this problem in the future. Lifestyle changes These lifestyle changes can help prevent constipation: Diet. Eat a high-fiber diet, with fresh fruit and vegetables, and reduce dairy intake, meats, and processed foods Fluids. It's important to get enough fluids each day. Drink plenty of water when you eat more fiber. If you are on diet that limits the amount of fluid you can have, talk about this with your healthcare provider. Regular exercise. Check with your healthcare provider first. Medicines Take any medicines as directed. Some laxatives are safe to use only every now and then. Others can be taken on a regular basis. While laxatives don't cause bowel dependence, they are treating the symptoms. So your constipation may return if you don't make other changes. Talk with your healthcare provider or pharmacist if you have questions. Prescription pain medicines can cause constipation. If you are taking this kind of medicine, ask your healthcare provider if you should also take a stool softener. Medicines you may take to treat constipation include: Fiber supplements Stool softeners Laxatives Enemas Rectal suppositories Follow-up care Follow up with your healthcare provider if symptoms don't get better in the next few days. You may need to have more tests or see a specialist. Call 911 Call 911 if any of these occur: Trouble breathing Stiff, rigid abdomen that is severely painful to touch Confusion Fainting or loss of consciousness Rapid heart rate Chest pain When to seek medical advice Call your healthcare provider right away if any of these occur: Fever of 100.4 F (38 C) or higher, or as directed by your healthcare provider Failure to resume normal bowel movements Pain in your abdomen or back gets worse Nausea or vomiting Swelling in your abdomen Blood in the stool Black, tarry stool Involuntary weight loss Weakness [id number] The [employer]. [address] [place] [address], [place] [address]. All rights reserved. This information is not intended as a substitute for professional medical care. Always follow your healthcare professional's instructions. 07/17/2022 21:07:19 Abdominal Pain Abdominal Pain Abdominal pain is pain in the stomach or belly area. Everyone has this pain from time to time. In many cases it goes away on its own. But abdominal pain can sometimes be due to a serious problem, such as appendicitis. So it s important to know when to get help. Causes of abdominal pain There are many possible causes of abdominal pain. Common causes in adults include: Constipation, diarrhea, or gas Stomach acid flowing back up into the esophagus (acid reflux or heartburn) Severe acid reflux, called GERD (gastroesophageal reflux disease) A sore in the lining of the stomach or small intestine (peptic ulcer) Inflammation of the gallbladder, liver, or pancreas Gallstones or kidney stones Appendicitis Intestinal blockage An internal organ pushing through a muscle or other tissue (hernia) Urinary tract infections In women, menstrual cramps, fibroids, ovarian cysts, pelvic inflammatory disease, or endometriosis Inflammation or infection of the intestines, including Crohn's disease and ulcerative colitis Irritable bowel syndrome Diagnosing the cause of abdominal pain Your healthcare provider will give you a physical exam help find the cause of your pain. If needed, you will have tests. Belly pain has many possible causes. So it can be hard to find the reason for your pain. Giving details about your pain can help. Tell your provider where and when you feel the pain, and what makes it better or worse. Also let your provider know if you have other symptoms such as: Fever Tiredness Upset stomach (nausea) Vomiting Changes in bathroom habits Blood in the stool or black, tarry stool Weight loss that you can't explain (involuntary weight loss?) Also report any family history of stomach or intestinal problems, or cancers. Tell your provider about all your alcohol use and drug use. Tell your provider about all medicines you use, including herbs, vitamins, and supplements. Treating abdominal pain Some causes of pain need emergency medical treatment right away. These include appendicitis or a bowel blockage. Other problems can be treated with rest, fluids, or medicines. Your healthcare provider can give you specific instructions for treatment or self-care based on what is causing your pain. If you have vomiting or diarrhea, sip water or other clear fluids. When you are ready to eat solid foods again, start with small amounts of vzbq-gn-lliphd, low-fat foods. These include apple sauce, toast, or crackers. When to get medical care Call 911 or go to the hospital right away if you: Can t pass stool and are vomiting Are vomiting blood or have bloody diarrhea or black, tarry diarrhea Have chest, neck, or shoulder pain Feel like you might pass out Have pain in your shoulder blades with nausea Have sudden, severe belly pain Have new, severe pain unlike any you have felt before Have a belly that is rigid, hard, and hurts to touch Call your healthcare provider if you have: Pain for more than 5 days Bloating for more than 2 days Diarrhea for more than 5 days A fever of 100.4 F (38 C) or higher, or as directed by your healthcare provider Pain that gets worse Weight loss for no reason Continued lack of appetite Blood in your stool How to prevent abdominal pain Here are some tips to help prevent abdominal pain: Eat smaller amounts of food at each meal. Don't eat greasy, fried, or other high-fat foods. Don't eat foods that give you gas. Exercise regularly. Drink plenty of fluids. To help prevent GERD symptoms: Quit smoking. Reduce alcohol and foods that increase stomach acid. Don't use aspirin or cuvb-btb-qgkjydl pain and fever medicines, if possible. This includes nonsteroidal anti-inflammatory drugs (NSAIDs). Lose excess weight. Finish eating at least 2 hours before you go to bed or lie down. Raise the head of your bed. [id number] The [employer]. [address] [place] [address]. All rights reserved. This information is not intended as a substitute for professional medical care. Always follow your healthcare professional's instructions. 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 The following is important discharge information regarding your hospital visit. Diagnosis from Today's Visit Abdominal pain What to Do Next Instructions from Your Care Team No qualifying data available. Post Acute Orders No qualifying data available. You Need to Schedule the Following Appointments Follow Up with RASHEED THAPA When Within 2-4 days Where: [address] [facility] [place] [address]- [phone] Allergies predniSONE (Sweats) Ceclor (Hives) Pediazole (Weakness, Flushing, Nausea) Suprax (Weakness, Flushing, Nausea) Tape Tylenol (Nausea) Vicodin (Nausea) erythromycin (Diarrhea) penicillin (Pruritus, Rash) traMADol (Hives) Medications Please ask your primary doctor or pharmacist before taking any other medication not listed, including over the counter drugs, herbal medications, vitamins and or supplements as they may interact with your home medications. What How Much When Why Instructions Last Dose New dicyclomine (Bentyl use dicyclomine ) 20 Milligram by mouth Four (4) times a day Printed Prescription New ondansetron (ondansetron 4 mg oral tablet, disintegrating) 1 tab(s) by mouth Every 8 hours as needed for as needed for nausea/vomiting Duration: 3 Days Printed Prescription Unchanged ARIPiprazole (Abilify 2 mg oral tablet) 1 tab(s) by mouth Once a day Duration: 30 Days Unchanged budesonide-formoterol (Symbicort 160 mcg-4.5 mcg/ inh Inhaler) 2 puff(s) by inhalation Two (2) times a day Duration: 30 Days Unchanged celecoxib (CeleBREX 100 mg oral capsule) 1 cap by mouth Two (2) times a day Duration: 30 Days Unchanged clonazePAM (clonazepam 2 mg oral tablet) 1 tab(s) by mouth Two (2) times a day Anxiety Duration: 30 Days Unchanged lamoTRIgine (LaMICtal 100 mg oral tablet) 1 tab(s) by mouth Once a day Duration: 30 Days Unchanged lamoTRIgine (LaMICtal 25 mg oral tablet) 3 tab(s) by mouth Once a day (in the morning) Unchanged lamoTRIgine (LaMICtal 25 mg oral tablet) 1 tab(s) by mouth Two (2) times a day Duration: 30 Days Please take this list to your next doctor s visit. Bring all medications you take, including over the counter medications, herbals and other supplements with you to your doctor s visit. Patients and families are reminded to discard old lists and to update any records with all medication providers or retail pharmacies. Education Materials Constipation (Adult) Constipation means that you have bowel movements that are less frequent than usual. Stools often become very hard and difficult to pass. Constipation is very common. At some point in life, it affects almost everyone. Since everyone's bowel habits are different, what is constipation to one person may not be to another. Your healthcare provider may do tests to diagnose constipation. It depends on what he or she finds when evaluating you. Symptoms of constipation include: Abdominal pain Bloating Vomiting Painful bowel movements Itching, swelling, bleeding, or pain around the anus Causes Constipation can have many causes. These include: Diet low in fiber Too much dairy Not drinking enough liquids Lack of exercise or physical activity (especially true for older adults) Changes in lifestyle or daily routine, including , aging, work, and travel Frequent use or misuse of laxatives Ignoring the urge to have a bowel movement or delaying it until later Medicines, such as certain prescription pain medicines, iron supplements, antacids, certain antidepressants, and calcium supplements Diseases like irritable bowel syndrome, bowel obstructions, stroke, diabetes, thyroid disease, Parkinson disease, hemorrhoids, and colon cancer Complications Potential complications of constipation can include: Hemorrhoids Rectal bleeding from hemorrhoids or anal fissures (skin tears) Hernias Dependency on laxatives Chronic constipation Fecal impaction, a severe form of constipation in which a large amount of hard stool is in your rectum that you can't pass Bowel obstruction or perforation Home care All treatment should be done after talking with your healthcare provider. This is especially true if you have another medical problems, are taking prescription medicines, or are an older adult. Treatment most often involves lifestyle changes. You may also need medicines. Your healthcare provider will tell you which will work best for you. Follow the advice below to help avoid this problem in the future. Lifestyle changes These lifestyle changes can help prevent constipation: Diet. Eat a high-fiber diet, with fresh fruit and vegetables, and reduce dairy intake, meats, and processed foods Fluids. It's important to get enough fluids each day. Drink plenty of water when you eat more fiber. If you are on diet that limits the amount of fluid you can have, talk about this with your healthcare provider. Regular exercise. Check with your healthcare provider first. Medicines Take any medicines as directed. Some laxatives are safe to use only every now and then. Others can be taken on a regular basis. While laxatives don't cause bowel dependence, they are treating the symptoms. So your constipation may return if you don't make other changes. Talk with your healthcare provider or pharmacist if you have questions. Prescription pain medicines can cause constipation. If you are taking this kind of medicine, ask your healthcare provider if you should also take a stool softener. Medicines you may take to treat constipation include: Fiber supplements Stool softeners Laxatives Enemas Rectal suppositories Follow-up care Follow up with your healthcare provider if symptoms don't get better in the next few days. You may need to have more tests or see a specialist. Call 911 Call 911 if any of these occur: Trouble breathing Stiff, rigid abdomen that is severely painful to touch Confusion Fainting or loss of consciousness Rapid heart rate Chest pain When to seek medical advice Call your healthcare provider right away if any of these occur: Fever of 100.4 F (38 C) or higher, or as directed by your healthcare provider Failure to resume normal bowel movements Pain in your abdomen or back gets worse Nausea or vomiting Swelling in your abdomen Blood in the stool Black, tarry stool Involuntary weight loss Weakness [id number] The [employer]. [address] [place] [address], [place] [address]. All rights reserved. This information is not intended as a substitute for professional medical care. Always follow your healthcare professional's instructions. Abdominal Pain Abdominal pain is pain in the stomach or belly area. Everyone has this pain from time to time. In many cases it goes away on its own. But abdominal pain can sometimes be due to a serious problem, such as appendicitis. So it s important to know when to get help. Causes of abdominal pain There are many possible causes of abdominal pain. Common causes in adults include: Constipation, diarrhea, or gas Stomach acid flowing back up into the esophagus (acid reflux or heartburn) Severe acid reflux, called GERD (gastroesophageal reflux disease) A sore in the lining of the stomach or small intestine (peptic ulcer) Inflammation of the gallbladder, liver, or pancreas Gallstones or kidney stones Appendicitis Intestinal blockage An internal organ pushing through a muscle or other tissue (hernia) Urinary tract infections In women, menstrual cramps, fibroids, ovarian cysts, pelvic inflammatory disease, or endometriosis Inflammation or infection of the intestines, including Crohn's disease and ulcerative colitis Irritable bowel syndrome Diagnosing the cause of abdominal pain Your healthcare provider will give you a physical exam help find the cause of your pain. If needed, you will have tests. Belly pain has many possible causes. So it can be hard to find the reason for your pain. Giving details about your pain can help. Tell your provider where and when you feel the pain, and what makes it better or worse. Also let your provider know if you have other symptoms such as: Fever Tiredness Upset stomach (nausea) Vomiting Changes in bathroom habits Blood in the stool or black, tarry stool Weight loss that you can't explain (involuntary weight loss?) Also report any family history of stomach or intestinal problems, or cancers. Tell your provider about all your alcohol use and drug use. Tell your provider about all medicines you use, including herbs, vitamins, and supplements. Treating abdominal pain Some causes of pain need emergency medical treatment right away. These include appendicitis or a bowel blockage. Other problems can be treated with rest, fluids, or medicines. Your healthcare provider can give you specific instructions for treatment or self-care based on what is causing your pain. If you have vomiting or diarrhea, sip water or other clear fluids. When you are ready to eat solid foods again, start with small amounts of dzup-fr-xjvrhc, low-fat foods. These include apple sauce, toast, or crackers. When to get medical care Call 911 or go to the hospital right away if you: Can t pass stool and are vomiting Are vomiting blood or have bloody diarrhea or black, tarry diarrhea Have chest, neck, or shoulder pain Feel like you might pass out Have pain in your shoulder blades with nausea Have sudden, severe belly pain Have new, severe pain unlike any you have felt before Have a belly that is rigid, hard, and hurts to touch Call your healthcare provider if you have: Pain for more than 5 days Bloating for more than 2 days Diarrhea for more than 5 days A fever of 100.4 F (38 C) or higher, or as directed by your healthcare provider Pain that gets worse Weight loss for no reason Continued lack of appetite Blood in your stool How to prevent abdominal pain Here are some tips to help prevent abdominal pain: Eat smaller amounts of food at each meal. Don't eat greasy, fried, or other high-fat foods. Don't eat foods that give you gas. Exercise regularly. Drink plenty of fluids. To help prevent GERD symptoms: Quit smoking. Reduce alcohol and foods that increase stomach acid. Don't use aspirin or hjil-hml-ebotxak pain and fever medicines, if possible. This includes nonsteroidal anti-inflammatory drugs (NSAIDs). Lose excess weight. Finish eating at least 2 hours before you go to bed or lie down. Raise the head of your bed. [id number] The [employer]. [address] [place] [address]. All rights reserved. This information is not intended as a substitute for professional medical care. Always follow your healthcare professional's instructions. Additional Information VACCINATE! IT SAVES LIVES! Members of the community who have not yet received the COVID-19 vaccine and would like to receive it can visit one of [facility] vaccine clinics. There are many vaccine clinic locations within the [facility]. For locations and available times, please visit [email or web address]. It is important to note that some COVID mobile vaccine clinics are held outdoors and may be canceled in rainy or stormy conditions. To learn more about pediatric vaccinations (ages 5-11), we invite you to visit the [facility] webpage. [email or web address] [email or web address] [email or web address] To learn more about the COVID-19 vaccine, we invite you to visit the [facility] website for a list of frequently asked questions. [email or web address] [email or web address] [facility] Patient Portal Access Instructions: Stay connected with your healthcare team and access your personal medical information anytime with the [facility] Patient Portal. If you would like a full copy of your medical records please contact the [facility] Medical Records Department Monday through Monday between 8a.m. and 4:30p.m. Please follow the directions below to access the portal: 1.Access the email account you provided upon registration to the [facility].2.Look for an invitation email from [facility].3.Open the email and access the invitation link: Accept Invitation to [facility].Fill in the required somers to create your account. Sign into [email or web address] with your username and password that you created in the above steps to stay up to date. You can then view a summary of results, a summary of your visits, and the ability to download your summaries to your computer or send the information securely to a physician. Remember that your healthcare information is confidential, so carefully consider who you will allow to register on the [facility] Patient Portal for access to your information. You can also access the [facility] Patient Portal on the [employer]. Simply click on Health Records under Health Data and then click on the [employer] logo. HOW TO SAFELY DISPOSE OF PRESCRIPTION MEDICATIONS Please use one of the following methods to safely dispose of your unused medications. 1.Use a drug disposal kit: the drug disposal pouch allows you to safely discard your old and unused drugs. Ask your nurse to give you one when you are discharged.2.Visit a local take-back location: Many local pharmacies and police departments have programs that collect old and unwanted prescription drugs. Call your local pharmacy or go to http://RotoHog.248 [employer]State/6B0Xh6g to find one close to you.3.Make use of household items: Use cat litter or old coffee grounds to dispose medications if other options are not available. Mix your drugs with these household products, seal them in an airtight container and throw it into the garbage. Call [facility]: [phone] to be sure your drugs can be disposed of in this way. Some medicines may require a different approach.4.Never flush your medications down the toilet. IF YOU HAVE BEEN PRESCRIBED AN OPIOIDS FOR PAIN If you have been prescribed an opioid (such as hydrocodone, oxycodone or morphine), it is critical to understand the possible side effects and risks of opioid pain medications. Even when taken as directed, opioids can have several side effects including: Tolerance, meaning you might need to take more of a medication for the same pain relief. Nausea, vomiting and/or constipation. Sleepiness, dizziness, dry mouth, confusion, depression or itching. Physical dependence, meaning you have withdrawal symptoms when a medication is stopped ? this can develop within a few days. KNOW YOUR RESPONSIBILITIES It is important to know exactly how much and how often to take the opioid pain medications you are prescribed. Never take opioids in higher amounts or more often than prescribed. Do not combine opioids with alcohol or other drugs that cause drowsiness, such as benzodiazepines, also known as benzos, including diazepam and alprazolam, muscle relaxants or sleep aids. Never sell or share prescription opioids. This is illegal. Store opioids in a secure place and out of reach of others (including children, family, friends and visitors). The last page(s) of this document has been signed and retained as a CHART COPY Signatures Patient Education Materials Constipation (Adult) Abdominal Pain Medication Leaflets My discharge plan and instructions have been reviewed and explained to me and I,LEONEL MONTEIRO understand my current condition and have read and understand these discharge instructions. I have received a written copy of the plan/instructions. If I have questions, I am aware that I should contact my doctor. 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 The following is important discharge information regarding your hospital visit. Diagnosis from Today's Visit Abdominal pain What to Do Next Instructions from Your Care Team No qualifying data available. Post Acute Orders No qualifying data available. You Need to Schedule the Following Appointments Follow Up with RASHEED THAPA When Within 2-4 days Where: [address] [facility] [place] [address] [phone] Allergies predniSONE (Sweats) Ceclor (Hives) Pediazole (Weakness, Flushing, Nausea) Suprax (Weakness, Flushing, Nausea) Tape Tylenol (Nausea) Vicodin (Nausea) erythromycin (Diarrhea) penicillin (Pruritus, Rash) traMADol (Hives) Medications Please ask your primary doctor or pharmacist before taking any other medication not listed, including over the counter drugs, herbal medications, vitamins and or supplements as they may interact with your home medications. What How Much When Why Instructions Last Dose New dicyclomine (Bentyl use dicyclomine ) 20 Milligram by mouth Four (4) times a day Printed Prescription New ondansetron (ondansetron 4 mg oral tablet, disintegrating) 1 tab(s) by mouth Every 8 hours as needed for as needed for nausea/vomiting Duration: 3 Days Printed Prescription Please take this list to your next doctor s visit. Bring all medications you take, including over the counter medications, herbals and other supplements with you to your doctor s visit. Patients and families are reminded to discard old lists and to update any records with all medication providers or retail pharmacies. Education Materials Constipation (Adult) Constipation means that you have bowel movements that are less frequent than usual. Stools often become very hard and difficult to pass. Constipation is very common. At some point in life, it affects almost everyone. Since everyone's bowel habits are different, what is constipation to one person may not be to another. Your healthcare provider may do tests to diagnose constipation. It depends on what he or she finds when evaluating you. Symptoms of constipation include: Abdominal pain Bloating Vomiting Painful bowel movements Itching, swelling, bleeding, or pain around the anus Causes Constipation can have many causes. These include: Diet low in fiber Too much dairy Not drinking enough liquids Lack of exercise or physical activity (especially true for older adults) Changes in lifestyle or daily routine, including , aging, work, and travel Frequent use or misuse of laxatives Ignoring the urge to have a bowel movement or delaying it until later Medicines, such as certain prescription pain medicines, iron supplements, antacids, certain antidepressants, and calcium supplements Diseases like irritable bowel syndrome, bowel obstructions, stroke, diabetes, thyroid disease, Parkinson disease, hemorrhoids, and colon cancer Complications Potential complications of constipation can include: Hemorrhoids Rectal bleeding from hemorrhoids or anal fissures (skin tears) Hernias Dependency on laxatives Chronic constipation Fecal impaction, a severe form of constipation in which a large amount of hard stool is in your rectum that you can't pass Bowel obstruction or perforation Home care All treatment should be done after talking with your healthcare provider. This is especially true if you have another medical problems, are taking prescription medicines, or are an older adult. Treatment most often involves lifestyle changes. You may also need medicines. Your healthcare provider will tell you which will work best for you. Follow the advice below to help avoid this problem in the future. Lifestyle changes These lifestyle changes can help prevent constipation: Diet. Eat a high-fiber diet, with fresh fruit and vegetables, and reduce dairy intake, meats, and processed foods Fluids. It's important to get enough fluids each day. Drink plenty of water when you eat more fiber. If you are on diet that limits the amount of fluid you can have, talk about this with your healthcare provider. Regular exercise. Check with your healthcare provider first. Medicines Take any medicines as directed. Some laxatives are safe to use only every now and then. Others can be taken on a regular basis. While laxatives don't cause bowel dependence, they are treating the symptoms. So your constipation may return if you don't make other changes. Talk with your healthcare provider or pharmacist if you have questions. Prescription pain medicines can cause constipation. If you are taking this kind of medicine, ask your healthcare provider if you should also take a stool softener. Medicines you may take to treat constipation include: Fiber supplements Stool softeners Laxatives Enemas Rectal suppositories Follow-up care Follow up with your healthcare provider if symptoms don't get better in the next few days. You may need to have more tests or see a specialist. Call 911 Call 911 if any of these occur: Trouble breathing Stiff, rigid abdomen that is severely painful to touch Confusion Fainting or loss of consciousness Rapid heart rate Chest pain When to seek medical advice Call your healthcare provider right away if any of these occur: Fever of 100.4 F (38 C) or higher, or as directed by your healthcare provider Failure to resume normal bowel movements Pain in your abdomen or back gets worse Nausea or vomiting Swelling in your abdomen Blood in the stool Black, tarry stool Involuntary weight loss Weakness [id number] The [employer]. [address] [place] [address], [place] [address]. All rights reserved. This information is not intended as a substitute for professional medical care. Always follow your healthcare professional's instructions. Abdominal Pain Abdominal pain is pain in the stomach or belly area. Everyone has this pain from time to time. In many cases it goes away on its own. But abdominal pain can sometimes be due to a serious problem, such as appendicitis. So it s important to know when to get help. Causes of abdominal pain There are many possible causes of abdominal pain. Common causes in adults include: Constipation, diarrhea, or gas Stomach acid flowing back up into the esophagus (acid reflux or heartburn) Severe acid reflux, called GERD (gastroesophageal reflux disease) A sore in the lining of the stomach or small intestine (peptic ulcer) Inflammation of the gallbladder, liver, or pancreas Gallstones or kidney stones Appendicitis Intestinal blockage An internal organ pushing through a muscle or other tissue (hernia) Urinary tract infections In women, menstrual cramps, fibroids, ovarian cysts, pelvic inflammatory disease, or endometriosis Inflammation or infection of the intestines, including Crohn's disease and ulcerative colitis Irritable bowel syndrome Diagnosing the cause of abdominal pain Your healthcare provider will give you a physical exam help find the cause of your pain. If needed, you will have tests. Belly pain has many possible causes. So it can be hard to find the reason for your pain. Giving details about your pain can help. Tell your provider where and when you feel the pain, and what makes it better or worse. Also let your provider know if you have other symptoms such as: Fever Tiredness Upset stomach (nausea) Vomiting Changes in bathroom habits Blood in the stool or black, tarry stool Weight loss that you can't explain (involuntary weight loss?) Also report any family history of stomach or intestinal problems, or cancers. Tell your provider about all your alcohol use and drug use. Tell your provider about all medicines you use, including herbs, vitamins, and supplements. Treating abdominal pain Some causes of pain need emergency medical treatment right away. These include appendicitis or a bowel blockage. Other problems can be treated with rest, fluids, or medicines. Your healthcare provider can give you specific instructions for treatment or self-care based on what is causing your pain. If you have vomiting or diarrhea, sip water or other clear fluids. When you are ready to eat solid foods again, start with small amounts of ifxy-sw-yrqcci, low-fat foods. These include apple sauce, toast, or crackers. When to get medical care Call 911 or go to the hospital right away if you: Can t pass stool and are vomiting Are vomiting blood or have bloody diarrhea or black, tarry diarrhea Have chest, neck, or shoulder pain Feel like you might pass out Have pain in your shoulder blades with nausea Have sudden, severe belly pain Have new, severe pain unlike any you have felt before Have a belly that is rigid, hard, and hurts to touch Call your healthcare provider if you have: Pain for more than 5 days Bloating for more than 2 days Diarrhea for more than 5 days A fever of 100.4 F (38 C) or higher, or as directed by your healthcare provider Pain that gets worse Weight loss for no reason Continued lack of appetite Blood in your stool How to prevent abdominal pain Here are some tips to help prevent abdominal pain: Eat smaller amounts of food at each meal. Don't eat greasy, fried, or other high-fat foods. Don't eat foods that give you gas. Exercise regularly. Drink plenty of fluids. To help prevent GERD symptoms: Quit smoking. Reduce alcohol and foods that increase stomach acid. Don't use aspirin or rdpi-ezr-viqeiuy pain and fever medicines, if possible. This includes nonsteroidal anti-inflammatory drugs (NSAIDs). Lose excess weight. Finish eating at least 2 hours before you go to bed or lie down. Raise the head of your bed. [id number] The [employer]. [address] [place] [address]. All rights reserved. This information is not intended as a substitute for professional medical care. Always follow your healthcare professional's instructions. Additional Information VACCINATE! IT SAVES LIVES! Members of the community who have not yet received the COVID-19 vaccine and would like to receive it can visit one of [facility] vaccine clinics. There are many vaccine clinic locations within the [facility]. For locations and available times, please visit [email or web address]. It is important to note that some COVID mobile vaccine clinics are held outdoors and may be canceled in rainy or stormy conditions. To learn more about pediatric vaccinations (ages 5-11), we invite you to visit the [facility] webpage. [email or web address] To learn more about the COVID-19 vaccine, we invite you to visit the [facility] website for a list of frequently asked questions. [email or web address] [facility] Patient Portal Access Instructions: Stay connected with your healthcare team and access your personal medical information anytime with the [facility] Patient [facility]. If you would like a full copy of your medical records please contact the [facility] Medical Records Department Monday through Monday between 8a.m. and 4:30p.m. Please follow the directions below to access the portal: 1.Access the email account you provided upon registration to the [facility].2.Look for an invitation email from [facility].3.Open the email and access the invitation link: Accept Invitation to [facility]4.Fill in the required somers to create your account. Sign into [email or web address] with your username and password that you created in the above steps to stay up to date. You can then view a summary of results, a summary of your visits, and the ability to download your summaries to your computer or send the information securely to a physician. Remember that your healthcare information is confidential, so carefully consider who you will allow to register on the [facility] [employer] Patient Portal for access to your information. You can also access the [facility] Patient Portal on the [employer] dominique. Simply click on Health Records under Health Data and then click on the [facility] logo. HOW TO SAFELY DISPOSE OF PRESCRIPTION MEDICATIONS Please use one of the following methods to safely dispose of your unused medications. 1.Use a drug disposal kit: the drug disposal pouch allows you to safely discard your old and unused drugs. Ask your nurse to give you one when you are discharged.2.Visit a local take-back location: Many local pharmacies and police departments have programs that collect old and unwanted prescription drugs. Call your local pharmacy or go to http://bit.ly/5D4Qf2y to find one close to you.3.Make use of household items: Use cat litter or old coffee grounds to dispose medications if other options are not available. Mix your drugs with these household products, seal them in an airtight container and throw it into the garbage. Call [facility]: [phone] to be sure your drugs can be disposed of in this way. Some medicines may require a different approach.4.Never flush your medications down the toilet. IF YOU HAVE BEEN PRESCRIBED AN OPIOIDS FOR PAIN If you have been prescribed an opioid (such as hydrocodone, oxycodone or morphine), it is critical to understand the possible side effects and risks of opioid pain medications. Even when taken as directed, opioids can have several side effects including: Tolerance, meaning you might need to take more of a medication for the same pain relief. Nausea, vomiting and/or constipation. Sleepiness, dizziness, dry mouth, confusion, depression or itching. Physical dependence, meaning you have withdrawal symptoms when a medication is stopped ? this can develop within a few days. KNOW YOUR RESPONSIBILITIES It is important to know exactly how much and how often to take the opioid pain medications you are prescribed. Never take opioids in higher amounts or more often than prescribed. Do not combine opioids with alcohol or other drugs that cause drowsiness, such as benzodiazepines, also known as benzos, including diazepam and alprazolam, muscle relaxants or sleep aids. Never sell or share prescription opioids. This is illegal. Store opioids in a secure place and out of reach of others (including children, family, friends and visitors). The last page(s) of this document has been signed and retained as a CHART COPY Signatures Patient Education Materials Constipation (Adult) Abdominal Pain Medication Leaflets My discharge plan and instructions have been reviewed and explained to me and I,LEONEL MONTEIRO understand my current condition and have read and understand these discharge instructions. I have received a written copy of the plan/instructions. If I have questions, I am aware that I should contact my doctor. 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 The following is important discharge information regarding your hospital visit. Diagnosis from Today's Visit Abdominal pain What to Do Next Instructions from Your Care Team No qualifying data available. Post Acute Orders No qualifying data available. You Need to Schedule the Following Appointments Follow Up with RASHEED THAPA When Within 2-4 days Where: [address] [facility] [place] [address]- [phone] Allergies predniSONE (Sweats) Ceclor (Hives) Pediazole (Weakness, Flushing, Nausea) Suprax (Weakness, Flushing, Nausea) Tape Tylenol (Nausea) Vicodin (Nausea) erythromycin (Diarrhea) penicillin (Pruritus, Rash) traMADol (Hives) Medications Please ask your primary doctor or pharmacist before taking any other medication not listed, including over the counter drugs, herbal medications, vitamins and or supplements as they may interact with your home medications. What How Much When Why Instructions Last Dose New dicyclomine (Bentyl use dicyclomine ) 20 Milligram by mouth Four (4) times a day Printed Prescription New ondansetron (ondansetron 4 mg oral tablet, disintegrating) 1 tab(s) by mouth Every 8 hours as needed for as needed for nausea/vomiting Duration: 3 Days Printed Prescription Please take this list to your next doctor s visit. Bring all medications you take, including over the counter medications, herbals and other supplements with you to your doctor s visit. Patients and families are reminded to discard old lists and to update any records with all medication providers or retail pharmacies. Education Materials Constipation (Adult) Constipation means that you have bowel movements that are less frequent than usual. Stools often become very hard and difficult to pass. Constipation is very common. At some point in life, it affects almost everyone. Since everyone's bowel habits are different, what is constipation to one person may not be to another. Your healthcare provider may do tests to diagnose constipation. It depends on what he or she finds when evaluating you. Symptoms of constipation include: Abdominal pain Bloating Vomiting Painful bowel movements Itching, swelling, bleeding, or pain around the anus Causes Constipation can have many causes. These include: Diet low in fiber Too much dairy Not drinking enough liquids Lack of exercise or physical activity (especially true for older adults) Changes in lifestyle or daily routine, including , aging, work, and travel Frequent use or misuse of laxatives Ignoring the urge to have a bowel movement or delaying it until later Medicines, such as certain prescription pain medicines, iron supplements, antacids, certain antidepressants, and calcium supplements Diseases like irritable bowel syndrome, bowel obstructions, stroke, diabetes, thyroid disease, Parkinson disease, hemorrhoids, and colon cancer Complications Potential complications of constipation can include: Hemorrhoids Rectal bleeding from hemorrhoids or anal fissures (skin tears) Hernias Dependency on laxatives Chronic constipation Fecal impaction, a severe form of constipation in which a large amount of hard stool is in your rectum that you can't pass Bowel obstruction or perforation Home care All treatment should be done after talking with your healthcare provider. This is especially true if you have another medical problems, are taking prescription medicines, or are an older adult. Treatment most often involves lifestyle changes. You may also need medicines. Your healthcare provider will tell you which will work best for you. Follow the advice below to help avoid this problem in the future. Lifestyle changes These lifestyle changes can help prevent constipation: Diet. Eat a high-fiber diet, with fresh fruit and vegetables, and reduce dairy intake, meats, and processed foods Fluids. It's important to get enough fluids each day. Drink plenty of water when you eat more fiber. If you are on diet that limits the amount of fluid you can have, talk about this with your healthcare provider. Regular exercise. Check with your healthcare provider first. Medicines Take any medicines as directed. Some laxatives are safe to use only every now and then. Others can be taken on a regular basis. While laxatives don't cause bowel dependence, they are treating the symptoms. So your constipation may return if you don't make other changes. Talk with your healthcare provider or pharmacist if you have questions. Prescription pain medicines can cause constipation. If you are taking this kind of medicine, ask your healthcare provider if you should also take a stool softener. Medicines you may take to treat constipation include: Fiber supplements Stool softeners Laxatives Enemas Rectal suppositories Follow-up care Follow up with your healthcare provider if symptoms don't get better in the next few days. You may need to have more tests or see a specialist. Call 911 Call 911 if any of these occur: Trouble breathing Stiff, rigid abdomen that is severely painful to touch Confusion Fainting or loss of consciousness Rapid heart rate Chest pain When to seek medical advice Call your healthcare provider right away if any of these occur: Fever of 100.4 F (38 C) or higher, or as directed by your healthcare provider Failure to resume normal bowel movements Pain in your abdomen or back gets worse Nausea or vomiting Swelling in your abdomen Blood in the stool Black, tarry stool Involuntary weight loss Weakness [id number] [employer] [place] [address]. All rights reserved. This information is not intended as a substitute for professional medical care. Always follow your healthcare professional's instructions. Abdominal Pain Abdominal pain is pain in the stomach or belly area. Everyone has this pain from time to time. In many cases it goes away on its own. But abdominal pain can sometimes be due to a serious problem, such as appendicitis. So it s important to know when to get help. Causes of abdominal pain There are many possible causes of abdominal pain. Common causes in adults include: Constipation, diarrhea, or gas Stomach acid flowing back up into the esophagus (acid reflux or heartburn) Severe acid reflux, called GERD (gastroesophageal reflux disease) A sore in the lining of the stomach or small intestine (peptic ulcer) Inflammation of the gallbladder, liver, or pancreas Gallstones or kidney stones Appendicitis Intestinal blockage An internal organ pushing through a muscle or other tissue (hernia) Urinary tract infections In women, menstrual cramps, fibroids, ovarian cysts, pelvic inflammatory disease, or endometriosis Inflammation or infection of the intestines, including Crohn's disease and ulcerative colitis Irritable bowel syndrome Diagnosing the cause of abdominal pain Your healthcare provider will give you a physical exam help find the cause of your pain. If needed, you will have tests. Belly pain has many possible causes. So it can be hard to find the reason for your pain. Giving details about your pain can help. Tell your provider where and when you feel the pain, and what makes it better or worse. Also let your provider know if you have other symptoms such as: Fever Tiredness Upset stomach (nausea) Vomiting Changes in bathroom habits Blood in the stool or black, tarry stool Weight loss that you can't explain (involuntary weight loss?) Also report any family history of stomach or intestinal problems, or cancers. Tell your provider about all your alcohol use and drug use. Tell your provider about all medicines you use, including herbs, vitamins, and supplements. Treating abdominal pain Some causes of pain need emergency medical treatment right away. These include appendicitis or a bowel blockage. Other problems can be treated with rest, fluids, or medicines. Your healthcare provider can give you specific instructions for treatment or self-care based on what is causing your pain. If you have vomiting or diarrhea, sip water or other clear fluids. When you are ready to eat solid foods again, start with small amounts of mfhw-ag-extwue, low-fat foods. These include apple sauce, toast, or crackers. When to get medical care Call 911 or go to the hospital right away if you: Can t pass stool and are vomiting Are vomiting blood or have bloody diarrhea or black, tarry diarrhea Have chest, neck, or shoulder pain Feel like you might pass out Have pain in your shoulder blades with nausea Have sudden, severe belly pain Have new, severe pain unlike any you have felt before Have a belly that is rigid, hard, and hurts to touch Call your healthcare provider if you have: Pain for more than 5 days Bloating for more than 2 days Diarrhea for more than 5 days A fever of 100.4 F (38 C) or higher, or as directed by your healthcare provider Pain that gets worse Weight loss for no reason Continued lack of appetite Blood in your stool How to prevent abdominal pain Here are some tips to help prevent abdominal pain: Eat smaller amounts of food at each meal. Don't eat greasy, fried, or other high-fat foods. Don't eat foods that give you gas. Exercise regularly. Drink plenty of fluids. To help prevent GERD symptoms: Quit smoking. Reduce alcohol and foods that increase stomach acid. Don't use aspirin or tymi-ryr-uwkjbmj pain and fever medicines, if possible. This includes nonsteroidal anti-inflammatory drugs (NSAIDs). Lose excess weight. Finish eating at least 2 hours before you go to bed or lie down. Raise the head of your bed. [id number] [employer]. [address] [place] [address], [place] [address]. All rights reserved. This information is not intended as a substitute for professional medical care. Always follow your healthcare professional's instructions. Additional Information VACCINATE! IT SAVES LIVES! Members of the community who have not yet received the COVID-19 vaccine and would like to receive it can visit one of [facility] vaccine clinics. There are many vaccine clinic locations within the [facility]. For locations and available times, please visit [email or web address]. It is important to note that some COVID mobile vaccine clinics are held outdoors and may be canceled in rainy or stormy conditions. To learn more about pediatric vaccinations (ages 5-11), we invite you to visit the [facility] webpage. [email or web address] To learn more about the COVID-19 vaccine, we invite you to visit the [facility] website for a list of frequently asked questions. [email or web address] [facility] Patient Portal Access Instructions: Stay connected with your healthcare team and access your personal medical information anytime with the [facility] Patient Portal. If you would like a full copy of your medical records please contact the [facility] Medical Records Department Monday through Monday between 8a.m. and 4:30p.m. Please follow the directions below to access the portal: 1.Access the email account you provided upon registration to the hospital.2.Look for an invitation email from [facility].3.Open the email and access the invitation link: Accept Invitation to [facility]4.Fill in the required somers to create your account. Sign into [email or web address] with your username and password that you created in the above steps to stay up to date. You can then view a summary of results, a summary of your visits, and the ability to download your summaries to your computer or send the information securely to a physician. Remember that your healthcare information is confidential, so carefully consider who you will allow to register on the [facility] Patient Portal for access to your information. You can also access the [facility] Patient Portal on the [employer]. Simply click on Health Records under Health Data and then click on the EverCloud logo. HOW TO SAFELY DISPOSE OF PRESCRIPTION MEDICATIONS Please use one of the following methods to safely dispose of your unused medications. 1.Use a drug disposal kit: the drug disposal pouch allows you to safely discard your old and unused drugs. Ask your nurse to give you one when you are discharged.2.Visit a local take-back location: Many local pharmacies and police departments have programs that collect old and unwanted prescription drugs. Call your local pharmacy or go to http://RotoHog.248 SolidState/1P7Fw3y to find one close to you.3.Make use of household items: Use cat litter or old coffee grounds to dispose medications if other options are not available. Mix your drugs with these household products, seal them in an airtight container and throw it into the garbage. Call [facility]: [phone] to be sure your drugs can be disposed of in this way. Some medicines may require a different approach.4.Never flush your medications down the toilet. IF YOU HAVE BEEN PRESCRIBED AN OPIOIDS FOR PAIN If you have been prescribed an opioid (such as hydrocodone, oxycodone or morphine), it is critical to understand the possible side effects and risks of opioid pain medications. Even when taken as directed, opioids can have several side effects including: Tolerance, meaning you might need to take more of a medication for the same pain relief. Nausea, vomiting and/or constipation. Sleepiness, dizziness, dry mouth, confusion, depression or itching. Physical dependence, meaning you have withdrawal symptoms when a medication is stopped ? this can develop within a few days. KNOW YOUR RESPONSIBILITIES It is important to know exactly how much and how often to take the opioid pain medications you are prescribed. Never take opioids in higher amounts or more often than prescribed. Do not combine opioids with alcohol or other drugs that cause drowsiness, such as benzodiazepines, also known as benzos, including diazepam and alprazolam, muscle relaxants or sleep aids. Never sell or share prescription opioids. This is illegal. Store opioids in a secure place and out of reach of others (including children, family, friends and visitors). The last page(s) of this document has been signed and retained as a CHART COPY Signatures Patient Education Materials Constipation (Adult) Abdominal Pain Medication Leaflets My discharge plan and instructions have been reviewed and explained to me and ITHANIA JENNIFER L understand my current condition and have read and understand these discharge instructions. I have received a written copy of the plan/instructions. If I have questions, I am aware that I should contact my doctor. 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 Multiplanar reformatted images are provided for review. Automated exposure control, iterative reconstruction, and/or weight based adjustment of the mA/kV was utilized to reduce the radiation dose to as low as reasonably achievable. COMPARISON: CT abdomen pelvis 06/19/2022 HISTORY: ORDERING SYSTEM PROVIDED HISTORY: Reason for Exam: pain Right upper quadrant FINDINGS: Lower Chest: Bibasilar dependent atelectasis present. Organs: The gallbladder is absent. The liver, spleen, adrenal glands, are within normal limits. Near-total atrophy of pancreas is again demonstrated. The kidneys are stable without hydronephrosis. No suspicious mass. Single punctate nonobstructing left renal calculus present. GI/Bowel: Mild colonic stool burden present, decreased from prior. The appendix is surgically absent. No obstructive change of the small bowel. Pelvis: Urinary bladder is within normal limits. Uterus is present. No suspicious adnexal masses. Peritoneum/Retroperitoneum: No free air, or free fluid. Abdominal aorta is nonaneurysmal. Major abdominal veins are patent. No enlarged lymphadenopathy. Bones/Soft Tissues: Mild degenerative changes, no acute or aggressive osseous abnormality IMPRESSION: Mild colonic stool burden without acute process in the abdomen or pelvis. Interpreted by: Feliberto Butt Preliminary Report By: Feliberto Butt Electronically signed By Feliberto Butt Dictated Date: 07/17/2022 8:33:24 PM Prelim Date: 07/17/2022 8:45:08 PM Sign Date: 07/17/2022 8:45:08 PM Ordering Provider: [facility] 07-17-2022 Note ORIGINAL EXAMINATION: CT OF THE ABDOMEN AND PELVIS WITH CONTRAST 07/17/2022 8:18 pm TECHNIQUE: CT of the abdomen and pelvis was performed with the administration of intravenous contrast. Multiplanar reformatted images are provided for review. Automated exposure control, iterative reconstruction, and/or weight based adjustment of the mA/kV was utilized to reduce the radiation dose to as low as reasonably achievable. COMPARISON: CT abdomen pelvis 06/19/2022 HISTORY: ORDERING SYSTEM PROVIDED HISTORY: Reason for Exam: pain Right upper quadrant FINDINGS: Lower Chest: Bibasilar dependent atelectasis present. Organs: The gallbladder is absent. The liver, spleen, adrenal glands, are within normal limits. Near-total atrophy of pancreas is again demonstrated. The kidneys are stable without hydronephrosis. No suspicious mass. Single punctate nonobstructing left renal calculus present. GI/Bowel: Mild colonic stool burden present, decreased from prior. The appendix is surgically absent. No obstructive change of the small bowel. Pelvis: Urinary bladder is within normal limits. Uterus is present. No suspicious adnexal masses. Peritoneum/Retroperitoneum: No free air, or free fluid. Abdominal aorta is nonaneurysmal. Major abdominal veins are patent. No enlarged lymphadenopathy. Bones/Soft Tissues: Mild degenerative changes, no acute or aggressive osseous abnormality IMPRESSION: Mild colonic stool burden without acute process in the abdomen or pelvis. Interpreted by: Feliberto Butt Preliminary Report By: Feliberto Butt Electronically signed By Feliberto Butt Dictated Date: 07/17/2022 8:33:24 PM Prelim Date: 07/17/2022 8:45:08 PM Sign Date: 07/17/2022 8:45:08 PM Ordering Provider: [facility] 06-19-2022 Hospital Discharge instructions Patient Education 06/19/2022 16:54:20 Constipation (Adult) Constipation (Adult) Constipation means that you have bowel movements that are less frequent than usual. Stools often become very hard and difficult to pass. Constipation is very common. At some point in life, it affects almost everyone. Since everyone's bowel habits are different, what is constipation to one person may not be to another. Your healthcare provider may do tests to diagnose constipation. It depends on what he or she finds when evaluating you. Symptoms of constipation include: Abdominal pain Bloating Vomiting Painful bowel movements Itching, swelling, bleeding, or pain around the anus Causes Constipation can have many causes. These include: Diet low in fiber Too much dairy Not drinking enough liquids Lack of exercise or physical activity (especially true for older adults) Changes in lifestyle or daily routine, including , aging, work, and travel Frequent use or misuse of laxatives Ignoring the urge to have a bowel movement or delaying it until later Medicines, such as certain prescription pain medicines, iron supplements, antacids, certain antidepressants, and calcium supplements Diseases like irritable bowel syndrome, bowel obstructions, stroke, diabetes, thyroid disease, Parkinson disease, hemorrhoids, and colon cancer Complications Potential complications of constipation can include: Hemorrhoids Rectal bleeding from hemorrhoids or anal fissures (skin tears) Hernias Dependency on laxatives Chronic constipation Fecal impaction, a severe form of constipation in which a large amount of hard stool is in your rectum that you can't pass Bowel obstruction or perforation Home care All treatment should be done after talking with your healthcare provider. This is especially true if you have another medical problems, are taking prescription medicines, or are an older adult. Treatment most often involves lifestyle changes. You may also need medicines. Your healthcare provider will tell you which will work best for you. Follow the advice below to help avoid this problem in the future. Lifestyle changes These lifestyle changes can help prevent constipation: Diet. Eat a high-fiber diet, with fresh fruit and vegetables, and reduce dairy intake, meats, and processed foods Fluids. It's important to get enough fluids each day. Drink plenty of water when you eat more fiber. If you are on diet that limits the amount of fluid you can have, talk about this with your healthcare provider. Regular exercise. Check with your healthcare provider first. Medicines Take any medicines as directed. Some laxatives are safe to use only every now and then. Others can be taken on a regular basis. While laxatives don't cause bowel dependence, they are treating the symptoms. So your constipation may return if you don't make other changes. Talk with your healthcare provider or pharmacist if you have questions. Prescription pain medicines can cause constipation. If you are taking this kind of medicine, ask your healthcare provider if you should also take a stool softener. Medicines you may take to treat constipation include: Fiber supplements Stool softeners Laxatives Enemas Rectal suppositories Follow-up care Follow up with your healthcare provider if symptoms don't get better in the next few days. You may need to have more tests or see a specialist. Call 911 Call 911 if any of these occur: Trouble breathing Stiff, rigid abdomen that is severely painful to touch Confusion Fainting or loss of consciousness Rapid heart rate Chest pain When to seek medical advice Call your healthcare provider right away if any of these occur: Fever of 100.4 F (38 C) or higher, or as directed by your healthcare provider Failure to resume normal bowel movements Pain in your abdomen or back gets worse Nausea or vomiting Swelling in your abdomen Blood in the stool Black, tarry stool Involuntary weight loss Weakness [id number] The [employer]. [address] [place] [address]. All rights reserved. This information is not intended as a substitute for professional medical care. Always follow your healthcare professional's instructions. 06/19/2022 16:48:32 Constipation (Adult) Constipation (Adult) Constipation means that you have bowel movements that are less frequent than usual. Stools often become very hard and difficult to pass. Constipation is very common. At some point in life, it affects almost everyone. Since everyone's bowel habits are different, what is constipation to one person may not be to another. Your healthcare provider may do tests to diagnose constipation. It depends on what he or she finds when evaluating you. Symptoms of constipation include: Abdominal pain Bloating Vomiting Painful bowel movements Itching, swelling, bleeding, or pain around the anus Causes Constipation can have many causes. These include: Diet low in fiber Too much dairy Not drinking enough liquids Lack of exercise or physical activity (especially true for older adults) Changes in lifestyle or daily routine, including , aging, work, and travel Frequent use or misuse of laxatives Ignoring the urge to have a bowel movement or delaying it until later Medicines, such as certain prescription pain medicines, iron supplements, antacids, certain antidepressants, and calcium supplements Diseases like irritable bowel syndrome, bowel obstructions, stroke, diabetes, thyroid disease, Parkinson disease, hemorrhoids, and colon cancer Complications Potential complications of constipation can include: Hemorrhoids Rectal bleeding from hemorrhoids or anal fissures (skin tears) Hernias Dependency on laxatives Chronic constipation Fecal impaction, a severe form of constipation in which a large amount of hard stool is in your rectum that you can't pass Bowel obstruction or perforation Home care All treatment should be done after talking with your healthcare provider. This is especially true if you have another medical problems, are taking prescription medicines, or are an older adult. Treatment most often involves lifestyle changes. You may also need medicines. Your healthcare provider will tell you which will work best for you. Follow the advice below to help avoid this problem in the future. Lifestyle changes These lifestyle changes can help prevent constipation: Diet. Eat a high-fiber diet, with fresh fruit and vegetables, and reduce dairy intake, meats, and processed foods Fluids. It's important to get enough fluids each day. Drink plenty of water when you eat more fiber. If you are on diet that limits the amount of fluid you can have, talk about this with your healthcare provider. Regular exercise. Check with your healthcare provider first. Medicines Take any medicines as directed. Some laxatives are safe to use only every now and then. Others can be taken on a regular basis. While laxatives don't cause bowel dependence, they are treating the symptoms. So your constipation may return if you don't make other changes. Talk with your healthcare provider or pharmacist if you have questions. Prescription pain medicines can cause constipation. If you are taking this kind of medicine, ask your healthcare provider if you should also take a stool softener. Medicines you may take to treat constipation include: Fiber supplements Stool softeners Laxatives Enemas Rectal suppositories Follow-up care Follow up with your healthcare provider if symptoms don't get better in the next few days. You may need to have more tests or see a specialist. Call 911 Call 911 if any of these occur: Trouble breathing Stiff, rigid abdomen that is severely painful to touch Confusion Fainting or loss of consciousness Rapid heart rate Chest pain When to seek medical advice Call your healthcare provider right away if any of these occur: Fever of 100.4 F (38 C) or higher, or as directed by your healthcare provider Failure to resume normal bowel movements Pain in your abdomen or back gets worse Nausea or vomiting Swelling in your abdomen Blood in the stool Black, tarry stool Involuntary weight loss Weakness [id number] The [employer]. [address] [place] [address]. All rights reserved. This information is not intended as a substitute for professional medical care. Always follow your healthcare professional's instructions. Follow Up Care 06/19/2022 13:58:43 With:RAI ALVARADO MD Address: Alyse MORALES [address] [place] [phone]- When:2-4 days With:RASHEED THAPA Address: [address] [place] [address] [phone] When:2-4 days only if needed [facility] 06-19-2022 Note Discharge Instructions Thank you for allowing [facility] to assist you with your healthcare needs. The following is important discharge information regarding your hospital visit. Diagnosis from Today's Visit Abdominal pain Constipation What to Do Next Instructions from Your Care Team No qualifying data available. Post Acute Orders No qualifying data available. You Need to Schedule the Following Appointments Follow Up with RAI ALVARADO MD When Within 2-4 days Where: A[facility] MORAL[facility] [address] [place] [phone]- Follow Up with RASHEED THAPA When Within 2-4 days, only if needed Where: [address] [place] [address] [phone] Allergies predniSONE (Sweats) Ceclor (Hives) Pediazole (Weakness, Flushing, Nausea) Suprax (Weakness, Flushing, Nausea) Tape Tylenol (Nausea) Vicodin (Nausea) erythromycin (Diarrhea) penicillin (Pruritus, Rash) traMADol (Hives) Medications Please ask your primary doctor or pharmacist before taking any other medication not listed, including over the counter drugs, herbal medications, vitamins and or supplements as they may interact with your home medications. What How Much When Why Instructions Last Dose Unchanged budesonide-formoterol (Symbicort 160 mcg-4.5 mcg/ inh Inhaler) 2 puff(s) by inhalation Two (2) times a day Duration: 30 Days Unchanged clonazePAM (clonazepam 2 mg oral tablet) 1 tab(s) by mouth Two (2) times a day Anxiety Duration: 30 Days Unchanged lamoTRIgine (LaMICtal 100 mg oral tablet) 1 tab(s) by mouth Once a day Duration: 30 Days Unchanged lamoTRIgine (LaMICtal 25 mg oral tablet) 3 tab(s) by mouth Once a day (in the morning) Unchanged lamoTRIgine (LaMICtal 25 mg oral tablet) 1 tab(s) by mouth Two (2) times a day Duration: 30 Days Please take this list to your next doctor s visit. Bring all medications you take, including over the counter medications, herbals and other supplements with you to your doctor s visit. Patients and families are reminded to discard old lists and to update any records with all medication providers or retail pharmacies. Education Materials Constipation (Adult) Constipation means that you have bowel movements that are less frequent than usual. Stools often become very hard and difficult to pass. Constipation is very common. At some point in life, it affects almost everyone. Since everyone's bowel habits are different, what is constipation to one person may not be to another. Your healthcare provider may do tests to diagnose constipation. It depends on what he or she finds when evaluating you. Symptoms of constipation include: Abdominal pain Bloating Vomiting Painful bowel movements Itching, swelling, bleeding, or pain around the anus Causes Constipation can have many causes. These include: Diet low in fiber Too much dairy Not drinking enough liquids Lack of exercise or physical activity (especially true for older adults) Changes in lifestyle or daily routine, including , aging, work, and travel Frequent use or misuse of laxatives Ignoring the urge to have a bowel movement or delaying it until later Medicines, such as certain prescription pain medicines, iron supplements, antacids, certain antidepressants, and calcium supplements Diseases like irritable bowel syndrome, bowel obstructions, stroke, diabetes, thyroid disease, Parkinson disease, hemorrhoids, and colon cancer Complications Potential complications of constipation can include: Hemorrhoids Rectal bleeding from hemorrhoids or anal fissures (skin tears) Hernias Dependency on laxatives Chronic constipation Fecal impaction, a severe form of constipation in which a large amount of hard stool is in your rectum that you can't pass Bowel obstruction or perforation Home care All treatment should be done after talking with your healthcare provider. This is especially true if you have another medical problems, are taking prescription medicines, or are an older adult. Treatment most often involves lifestyle changes. You may also need medicines. Your healthcare provider will tell you which will work best for you. Follow the advice below to help avoid this problem in the future. Lifestyle changes These lifestyle changes can help prevent constipation: Diet. Eat a high-fiber diet, with fresh fruit and vegetables, and reduce dairy intake, meats, and processed foods Fluids. It's important to get enough fluids each day. Drink plenty of water when you eat more fiber. If you are on diet that limits the amount of fluid you can have, talk about this with your healthcare provider. Regular exercise. Check with your healthcare provider first. Medicines Take any medicines as directed. Some laxatives are safe to use only every now and then. Others can be taken on a regular basis. While laxatives don't cause bowel dependence, they are treating the symptoms. So your constipation may return if you don't make other changes. Talk with your healthcare provider or pharmacist if you have questions. Prescription pain medicines can cause constipation. If you are taking this kind of medicine, ask your healthcare provider if you should also take a stool softener. Medicines you may take to treat constipation include: Fiber supplements Stool softeners Laxatives Enemas Rectal suppositories Follow-up care Follow up with your healthcare provider if symptoms don't get better in the next few days. You may need to have more tests or see a specialist. Call 911 Call 911 if any of these occur: Trouble breathing Stiff, rigid abdomen that is severely painful to touch Confusion Fainting or loss of consciousness Rapid heart rate Chest pain When to seek medical advice Call your healthcare provider right away if any of these occur: Fever of 100.4 F (38 C) or higher, or as directed by your healthcare provider Failure to resume normal bowel movements Pain in your abdomen or back gets worse Nausea or vomiting Swelling in your abdomen Blood in the stool Black, tarry stool Involuntary weight loss Weakness [id number] The [employer]. [address] [place] [address], [place] [address]. All rights reserved. This information is not intended as a substitute for professional medical care. Always follow your healthcare professional's instructions. Constipation (Adult) Constipation means that you have bowel movements that are less frequent than usual. Stools often become very hard and difficult to pass. Constipation is very common. At some point in life, it affects almost everyone. Since everyone's bowel habits are different, what is constipation to one person may not be to another. Your healthcare provider may do tests to diagnose constipation. It depends on what he or she finds when evaluating you. Symptoms of constipation include: Abdominal pain Bloating Vomiting Painful bowel movements Itching, swelling, bleeding, or pain around the anus Causes Constipation can have many causes. These include: Diet low in fiber Too much dairy Not drinking enough liquids Lack of exercise or physical activity (especially true for older adults) Changes in lifestyle or daily routine, including , aging, work, and travel Frequent use or misuse of laxatives Ignoring the urge to have a bowel movement or delaying it until later Medicines, such as certain prescription pain medicines, iron supplements, antacids, certain antidepressants, and calcium supplements Diseases like irritable bowel syndrome, bowel obstructions, stroke, diabetes, thyroid disease, Parkinson disease, hemorrhoids, and colon cancer Complications Potential complications of constipation can include: Hemorrhoids Rectal bleeding from hemorrhoids or anal fissures (skin tears) Hernias Dependency on laxatives Chronic constipation Fecal impaction, a severe form of constipation in which a large amount of hard stool is in your rectum that you can't pass Bowel obstruction or perforation Home care All treatment should be done after talking with your healthcare provider. This is especially true if you have another medical problems, are taking prescription medicines, or are an older adult. Treatment most often involves lifestyle changes. You may also need medicines. Your healthcare provider will tell you which will work best for you. Follow the advice below to help avoid this problem in the future. Lifestyle changes These lifestyle changes can help prevent constipation: Diet. Eat a high-fiber diet, with fresh fruit and vegetables, and reduce dairy intake, meats, and processed foods Fluids. It's important to get enough fluids each day. Drink plenty of water when you eat more fiber. If you are on diet that limits the amount of fluid you can have, talk about this with your healthcare provider. Regular exercise. Check with your healthcare provider first. Medicines Take any medicines as directed. Some laxatives are safe to use only every now and then. Others can be taken on a regular basis. While laxatives don't cause bowel dependence, they are treating the symptoms. So your constipation may return if you don't make other changes. Talk with your healthcare provider or pharmacist if you have questions. Prescription pain medicines can cause constipation. If you are taking this kind of medicine, ask your healthcare provider if you should also take a stool softener. Medicines you may take to treat constipation include: Fiber supplements Stool softeners Laxatives Enemas Rectal suppositories Follow-up care Follow up with your healthcare provider if symptoms don't get better in the next few days. You may need to have more tests or see a specialist. Call 911 Call 911 if any of these occur: Trouble breathing Stiff, rigid abdomen that is severely painful to touch Confusion Fainting or loss of consciousness Rapid heart rate Chest pain When to seek medical advice Call your healthcare provider right away if any of these occur: Fever of 100.4 F (38 C) or higher, or as directed by your healthcare provider Failure to resume normal bowel movements Pain in your abdomen or back gets worse Nausea or vomiting Swelling in your abdomen Blood in the stool Black, tarry stool Involuntary weight loss Weakness 1307-7001 The [employer]. [address] [place] [address]. All rights reserved. This information is not intended as a substitute for professional medical care. Always follow your healthcare professional's instructions. Additional Information VACCINATE! IT SAVES LIVES! Members of the community who have not yet received the COVID-19 vaccine and would like to receive it can visit one of [facility] vaccine clinics. There are many vaccine clinic locations within the [facility]. For locations and available times, please visit [email or web address]. It is important to note that some COVID mobile vaccine clinics are held outdoors and may be canceled in rainy or stormy conditions. To learn more about pediatric vaccinations (ages 5-11), we invite you to visit the [facility] webpage. [email or web address] [email or web address]-[email or web address] znul-Vfzgq-Bquiwhhsq.html To learn more about the COVID-19 vaccine, we invite you to visit the [employer] website for a list of frequently asked questions. [email or web address] qd-[email or web address]-Dflgyvgi/wjvam-Khdqyka-Nye quently_[email or web address]-Questions.pdf [facility] Patient Portal Access Instructions: Stay connected with your healthcare team and access your personal medical information anytime with the [facility] Patient Portal. If you would like a full copy of your medical records please contact the [facility] Medical Records Department Monday through Monday between 8a.m. and 4:30p.m. Please follow the directions below to access the portal: 1.Access the email account you provided upon registration to the [facility].2.Look for an invitation email from [facility].3.Open the email and access the invitation link: Accept Invitation to [facility].Fill in the required somers to create your account. Sign into [email or web address] with your username and password that you created in the above steps to stay up to date. You can then view a summary of results, a summary of your visits, and the ability to download your summaries to your computer or send the information securely to a physician. Remember that your healthcare information is confidential, so carefully consider who you will allow to register on the [facility] Patient Portal for access to your information. You can also access the [facility] Patient Portal on the [employer] dominique. Simply click on Health Records under Health Data and then click on the [facility] logo. HOW TO SAFELY DISPOSE OF PRESCRIPTION MEDICATIONS Please use one of the following methods to safely dispose of your unused medications. 1.Use a drug disposal kit: the drug disposal pouch allows you to safely discard your old and unused drugs. Ask your nurse to give you one when you are discharged.2.Visit a local take-back location: Many local pharmacies and police departments have programs that collect old and unwanted prescription drugs. Call your local pharmacy or go to http://bit.248 SolidState/5F8St1i to find one close to you.3.Make use of household items: Use cat litter or old coffee grounds to dispose medications if other options are not available. Mix your drugs with these household products, seal them in an airtight container and throw it into the garbage. Call [facility]: [phone] to be sure your drugs can be disposed of in this way. Some medicines may require a different approach.4.Never flush your medications down the toilet. IF YOU HAVE BEEN PRESCRIBED AN OPIOIDS FOR PAIN If you have been prescribed an opioid (such as hydrocodone, oxycodone or morphine), it is critical to understand the possible side effects and risks of opioid pain medications. Even when taken as directed, opioids can have several side effects including: Tolerance, meaning you might need to take more of a medication for the same pain relief. Nausea, vomiting and/or constipation. Sleepiness, dizziness, dry mouth, confusion, depression or itching. Physical dependence, meaning you have withdrawal symptoms when a medication is stopped ? this can develop within a few days. KNOW YOUR RESPONSIBILITIES It is important to know exactly how much and how often to take the opioid pain medications you are prescribed. Never take opioids in higher amounts or more often than prescribed. Do not combine opioids with alcohol or other drugs that cause drowsiness, such as benzodiazepines, also known as benzos, including diazepam and alprazolam, muscle relaxants or sleep aids. Never sell or share prescription opioids. This is illegal. Store opioids in a secure place and out of reach of others (including children, family, friends and visitors). The last page(s) of this document has been signed and retained as a CHART COPY Signatures Patient Education Materials Constipation (Adult) Constipation (Adult) Medication Leaflets My discharge plan and instructions have been reviewed and explained to me and I,LEONEL MONTEIRO understand my current condition and have read and understand these discharge instructions. I have received a written copy of the plan/instructions. If I have questions, I am aware that I should contact my doctor. 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 Multiplanar reformatted images are provided for review. Automated exposure control, iterative reconstruction, and/or weight based adjustment of the mA/kV was utilized to reduce the radiation dose to as low as reasonably achievable. COMPARISON: CT abdomen and pelvis April 18, 2016 HISTORY: ORDERING SYSTEM PROVIDED HISTORY: Reason for Exam: pain FINDINGS: Lower Chest: Subsegmental atelectatic changes at the lung bases. Organs: The liver, spleen, adrenal glands and kidneys are unremarkable. Cholecystectomy. Fatty involutional change of the pancreas. GI/Bowel: Moderate to large amount of stool in the colon. No bowel obstruction, pneumoperitoneum, or ascites. Appendectomy postsurgical changes. Pelvis: Bladder and uterus are unremarkable. Peritoneum/Retroperitoneum: Nonaneurysmal abdominal aorta. No enlarged lymph nodes. Bones/Soft Tissues: No acute osseous abnormality. IMPRESSION: Moderate to large amount of stool in the colon. Interpreted by: Nik Davis Preliminary Report By: Nik Davis Electronically signed By Nik Davis Dictated Date: 06/19/2022 4:33:13 PM Prelim Date: 06/19/2022 4:41:02 PM Sign Date: 06/19/2022 4:41:02 PM Ordering Provider: PROSPER ROMERO [facility] 06-19-2022 Note ORIGINAL EXAMINATION: CT OF THE ABDOMEN AND PELVIS WITH CONTRAST 06/19/2022 4:07 pm TECHNIQUE: CT of the abdomen and pelvis was performed with the administration of intravenous contrast. Multiplanar reformatted images are provided for review. Automated exposure control, iterative reconstruction, and/or weight based adjustment of the mA/kV was utilized to reduce the radiation dose to as low as reasonably achievable. COMPARISON: CT abdomen and pelvis April 18, 2016 HISTORY: ORDERING SYSTEM PROVIDED HISTORY: Reason for Exam: pain FINDINGS: Lower Chest: Subsegmental atelectatic changes at the lung bases. Organs: The liver, spleen, adrenal glands and kidneys are unremarkable. Cholecystectomy. Fatty involutional change of the pancreas. GI/Bowel: Moderate to large amount of stool in the colon. No bowel obstruction, pneumoperitoneum, or ascites. Appendectomy postsurgical changes. Pelvis: Bladder and uterus are unremarkable. Peritoneum/Retroperitoneum: Nonaneurysmal abdominal aorta. No enlarged lymph nodes. Bones/Soft Tissues: No acute osseous abnormality. IMPRESSION: Moderate to large amount of stool in the colon. Interpreted by: Nik Davis Preliminary Report By: Nik Davis Electronically signed By Nik Davis Dictated Date: 06/19/2022 4:33:13 PM Prelim Date: 06/19/2022 4:41:02 PM Sign Date: 06/19/2022 4:41:02 PM Ordering Provider: PROSPER ROMERO [facility] 05-24-2022 Evaluation + Plan note Future Scheduled TestsD-Dimer 05/24/22Complete Blood Count 05/24/22Complete Metabolic Panel 01/13/22Complete Metabolic Panel 05/24/22XR Chest 2 Views (PA & Lateral) 05/24/22 [facility] 05-22-2022 Note Discharge Instructions Thank you for allowing [facility] to assist you with your healthcare needs. The following is important discharge information regarding your hospital visit. Diagnosis from Today's Visit Cough COVID + What to Do Next Instructions from Your Care Team No qualifying data available. Post Acute Orders No qualifying data available. Allergies predniSONE (Sweats) Ceclor (Hives) Pediazole (Weakness, Flushing, Nausea) Suprax (Weakness, Flushing, Nausea) Tape Tylenol (Nausea) Vicodin (Nausea) erythromycin (Diarrhea) penicillin (Pruritus, Rash) traMADol (Hives) Medications Please ask your primary doctor or pharmacist before taking any other medication not listed, including over the counter drugs, herbal medications, vitamins and or supplements as they may interact with your home medications. What How Much When Why Instructions Last Dose New albuterol (albuterol MDI (90 mcg/ inh) CFC free inhalation aerosol) 2 puff(s) by inhalation Every 4 hours Printed Prescription New codeine-promethazine (Promethazine with Codeine 6.25 mg-10 mg/ 5 mL oral syrup) 5 Milliliter by mouth Every 6 hours as needed for as needed for cough Duration: 5 Days Printed Prescription Unchanged ARIPiprazole (Abilify 2 mg oral tablet) 1 tab(s) by mouth Once a day Duration: 30 Days Unchanged clonazePAM (clonazepam 2 mg oral tablet) 1 tab(s) by mouth Two (2) times a day Anxiety Duration: 30 Days Unchanged lamoTRIgine (LaMICtal 100 mg oral tablet) 1 tab(s) by mouth Once a day Duration: 30 Days Unchanged lamoTRIgine (LaMICtal 25 mg oral tablet) 3 tab(s) by mouth Once a day (in the morning) Unchanged lamoTRIgine (LaMICtal 25 mg oral tablet) 1 tab(s) by mouth Two (2) times a day Duration: 30 Days Unchanged multivitamin, (Prenatabs CBF oral tablet) 1 tab(s) by mouth Once a day otc Please take this list to your next doctor s visit. Bring all medications you take, including over the counter medications, herbals and other supplements with you to your doctor s visit. Patients and families are reminded to discard old lists and to update any records with all medication providers or retail pharmacies. Additional Information VACCINATE! IT SAVES LIVES! Members of the community who have not yet received the COVID-19 vaccine and would like to receive it can visit one of [facility] vaccine clinics. There are many vaccine clinic locations within the [facility]. For locations and available times, please visit [email or web address]. It is important to note that some COVID mobile vaccine clinics are held outdoors and may be canceled in rainy or stormy conditions. To learn more about pediatric vaccinations (ages 5-11), we invite you to visit the [facility] webpage. [email or web address]://[email or web address] [email or web address]-Plhqkbjqvxr-Freque gnck-Jupea-Fxykoeivm.html To learn more about the COVID-19 vaccine, we invite you to visit the [facility] website for a list of frequently asked questions. [email or web address] [email or web address]/Agus in-zjl-Matafmpl/[email or web address]-Gpirfkx-Ort quently_Asked-Questions.pdf [facility] Patient Portal Access Instructions: Stay connected with your healthcare team and access your personal medical information anytime with the [facility] Patient Portal. If you would like a full copy of your medical records please contact the [facility] Medical Records Department Monday through Monday between 8a.m. and 4:30p.m. Please follow the directions below to access the portal: 1.Access the email account you provided upon registration to the hospital.2.Look for an invitation email from [facility].3.Open the email and access the invitation link: Accept Invitation to [facility]4.Fill in the required somers to create your account. Sign into [email or web address] with your username and password that you created in the above steps to stay up to date. You can then view a summary of results, a summary of your visits, and the ability to download your summaries to your computer or send the information securely to a physician. Remember that your healthcare information is confidential, so carefully consider who you will allow to register on the [facility] Patient Portal for access to your information. You can also access the [facility] Patient Portal on the [employer]. Simply click on Health Records under Health Data and then click on the [facility] logo. HOW TO SAFELY DISPOSE OF PRESCRIPTION MEDICATIONS Please use one of the following methods to safely dispose of your unused medications. 1.Use a drug disposal kit: the drug disposal pouch allows you to safely discard your old and unused drugs. Ask your nurse to give you one when you are discharged.2.Visit a local take-back location: Many local pharmacies and police departments have programs that collect old and unwanted prescription drugs. Call your local pharmacy or go to http://RotoHog.248 SolidState/9W0An2k to find one close to you.3.Make use of household items: Use cat litter or old coffee grounds to dispose medications if other options are not available. Mix your drugs with these household products, seal them in an airtight container and throw it into the garbage. Call [facility]: [phone] to be sure your drugs can be disposed of in this way. Some medicines may require a different approach.4.Never flush your medications down the toilet. IF YOU HAVE BEEN PRESCRIBED AN OPIOIDS FOR PAIN If you have been prescribed an opioid (such as hydrocodone, oxycodone or morphine), it is critical to understand the possible side effects and risks of opioid pain medications. Even when taken as directed, opioids can have several side effects including: Tolerance, meaning you might need to take more of a medication for the same pain relief. Nausea, vomiting and/or constipation. Sleepiness, dizziness, dry mouth, confusion, depression or itching. Physical dependence, meaning you have withdrawal symptoms when a medication is stopped ? this can develop within a few days. KNOW YOUR RESPONSIBILITIES It is important to know exactly how much and how often to take the opioid pain medications you are prescribed. Never take opioids in higher amounts or more often than prescribed. Do not combine opioids with alcohol or other drugs that cause drowsiness, such as benzodiazepines, also known as benzos, including diazepam and alprazolam, muscle relaxants or sleep aids. Never sell or share prescription opioids. This is illegal. Store opioids in a secure place and out of reach of others (including children, family, friends and visitors). The last page(s) of this document has been signed and retained as a CHART COPY Signatures Patient Education Materials Medication Leaflets My discharge plan and instructions have been reviewed and explained to me and I,LEONEL MONTEIRO understand my current condition and have read and understand these discharge instructions. I have received a written copy of the plan/instructions. If I have questions, I am aware that I should contact my doctor. 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 Streaky bibasilar interstitial opacities. No vascular congestion, pleural effusion or pneumothorax. Osseous structures appear intact. IMPRESSION: Streaky bibasilar interstitial opacities could reflect atelectasis versus atypical infection given history of COVID positivity. I have personally reviewed the images of this examination and agree with the resident's findings and interpretation. Interpreted by: Tin Whitmore Preliminary Report By: Jasmyn Joyce Electronically signed By Tin Whitmore Dictated Date: 05/22/2022 1:19:39 PM Prelim Date: 05/22/2022 1:22:03 PM Sign Date: 05/22/2022 1:27:08 PM Ordering Provider: [facility] 05-22-2022 Note ORIGINAL EXAMINATION: ONE XRAY VIEW OF THE CHEST 05/22/2022 1:18 pm COMPARISON: CT abdomen pelvis 04/18/2016 HISTORY: ORDERING SYSTEM PROVIDED HISTORY: Reason for Exam: productive cough, COVID FINDINGS: The cardiomediastinal silhouette is normal. Streaky bibasilar interstitial opacities. No vascular congestion, pleural effusion or pneumothorax. Osseous structures appear intact. IMPRESSION: Streaky bibasilar interstitial opacities could reflect atelectasis versus atypical infection given history of COVID positivity. I have personally reviewed the images of this examination and agree with the resident's findings and interpretation. Interpreted by: Tin Whitmore Preliminary Report By: Jasmyn Joyce Electronically signed By Tin Whitmore Dictated Date: 05/22/2022 1:19:39 PM Prelim Date: 05/22/2022 1:22:03 PM Sign Date: 05/22/2022 1:27:08 PM Ordering Provider: AKSHAT [facility] 05-19-2022 Miscellaneous Notes Pt is no longer [facility]. Will remove from demos and update flowsheet. Ashli Madrid APRN.SUKI documented in this encounter [facility] 05-18-2022 Influenza virus A and B RNA and SARS-CoV-2 (COVID-19) N gene panel CHARLES+probe (Resp) COVID 19 RESULT: SARS-CoV-2 (Agent of COVID-19) Detected by RT-PCR or equivalent method. tori EQXX-AhY-5_Sygeh [employer] (JAGUAR)_EUA This test was developed and its performance characteristics determined by [facility]'s [facility] [place]. This test has been authorized by FDA under an Emergency Use Authorization (EUA). This test has been validated in accordance with the FDA's Guidance Document Policy for Diagnostics Testing in Laboratories Certified to Perform High Complexity Testing under CLIA prior to Emergency use Authorization for Coronavirus Disease 2019 during the Public Health Emergency issued on December 07, 2019. Test performed by [facility], [facility] [place], [address] [address]. INFLUENZA A PCR: Negative for Influenza A by RT-PCR INFLUENZA B PCR: Negative for Influenza B by RT-PCR [facility] documented in this encounter [facility] course Narrative No data available for this section [facility] Hospital Discharge instructions No data available for this section [facility] Progress note No data available for this section [facility] Summary Purpose Family History No Family History Records FoundNo Family History Records FoundNo Family History Records FoundNo Family History Records Found No data available for this section No Family History Records Found No data available for this section No Family History Records Found Advance Directives No Advanced Directives Records FoundNo Advanced Directives Records FoundNo Advanced Directives Records FoundNo Advanced Directives Records FoundNo Advanced Directives Records FoundNo Advanced Directives Records Found Medications Administered Section Inactive Administered Medications - up to 3 most recent administrations Medication Order MAR Action Action Date Dose Rate Site keTORolac 60 mg injection (TORADOL) 60 mg, INTRAMUSCULAR, ONCE, 1 dose, On Mon05/18/22 at 0900, Ketorolac (Toradol) is indicated for the short-term (up to 5 days) management of moderately severe acute pain. Continuation of ketorolac (Toradol) beyond 5 days increases the risk of developing serious adverse events. Please verify the duration of therapy for ketorolac (Toradol)., If ordered PRN for pain, patient/guardian may elect to receive this medication for higher pain levels INSTEAD of the opioid, if preferred: Yes Given 05/18/2022 9:06 AM EDT 60 mg Buttocks, Right Health Concerns Infection Onset Date Last Indicated Resolved Time COVID-19 Rule-Out 05/18/2022 05/18/2022 Infection Onset Date Last Indicated Resolved Time COVID-19 Confirmed 05/18/2022 05/18/2022 Additional Source Comments INFORMATION SOURCE (unrecogn ized section and content) DATE CREATED AUTHOR AUTHOR'S ORGANIZ ATION 05/19/2022 [facility] DATE CREATED AUTHOR AUTHOR'S ORGANIZ ATION 09/08/2022 [facility] DATE CREATED AUTHOR AUTHOR'S ORGANIZ ATION 09/30/2022 Ignacio Bryant [facility] DATE CREATED AUTHOR AUTHOR'S ORGANIZ ATION 09/01/2023 [facility] DATE CREATED AUTHOR AUTHOR'S ORGANIZ ATION 09/26/2023 [facility] ([place]) Care Team (unrecognized sect ion and content) Designer Architect Relationship Specialty Start Date End Date Flori Wetzel PCP - General Family Practice 03/22/12 Source Comments (unrecognize d section and content) In the event this informatio n is protected by the Federal Confidentiality of Alcohol and Drug Abuse Patient Records regulations: The Federal rules restrict any use of the information to criminally investigate or prosecute any alcohol or drug abuse patient.[facility] the event this information is protected by the Federal Confidentiality of Alcohol and Drug Abuse Patient Records regulations: The Federal rules restrict any use of the information to criminally investigate or prosecute any alcohol or drug abuse patient.[facility] Reason for Visit (unrecogniz ed section and content) Reason Comments [facility] COVID Outreach Care Team (unrecognized sect ion and content) Care Team Personnel Name: Shannan Gould Clerk [place] PT Position: P3 Scheduling - Helmet Coverer Advanced Member Role: Other Name: RASHEED THAPA Position: P4 Advanced Practice Nurse Med Service: Active Provider Member Role: Primary Care Physician Address: Address: [address] [place] [address] Care Team Related Persons Name: JAIRO SIMMONS Care Team Personnel Name: Shannan Gould Clerk [place] PT Position: P3 Scheduling - Helmet Coverer Advanced Member Role: Other Name: RASHEED THAPA Position: P4 Advanced Practice Nurse Med Service: Active Provider Member Role: Primary Care Physician Address: Address: [address] [place] [address] Care Team Related Persons Name: JAIRO SIMMONS Care Team Personnel Name: Shannan Gould Clerk [place] PT Position: P3 Scheduling - Helmet Coverer Advanced Member Role: Other Name: RASHEED THAPA Position: P4 Advanced Practice Nurse Med Service: Active Provider Member Role: Primary Care Physician Address: Address: [address] [place] [address] Care Team Related Persons Name: IRIS JAIRO Care Team Personnel Name: Shannan Gould Clerk [place] PT Position: P3 Scheduling - Helmet Coverer Advanced Member Role: Other Name: RASHEED THAPA Position: P4 Advanced Practice Nurse Member Role: Primary Care Physician Address: Address: [address] [place] [address] Name: EM Browne Position: AO RN Member Role: ED RN Name: ERIBERTO CHRISTINE MD Position: ED Physician Member Role: Attending Physician Address: Address: [facility] [address] [place] [address] Care Team Related Persons Name: IRIS JAIRO (unrecognized sect ion and content) No Status Records Found FOR RECORDS PERTAINING TO PATIENTS WHO ARE OR HAVE BEEN ENROLLED IN A CHEMICAL DEPENDENCY/SUBSTANCEABUSE PROGRAM, SOME INFORMATION MAY BE OMITTED. This clinical summary was aggregated from multiple sources. Caution should be exercised in using it in the provision of clinical care. This summary normalizes information from multiple sources, and as a consequence, information in this document may materially change the coding, format and clinical context of patient data. In addition, data may be omitted in some cases. CLINICAL DECISIONS SHOULD BE BASED ON THE PRIMARY CLINICAL RECORDS. [employer] [facility]. provides no warranty or guarantee of the accuracy or completeness of information in this document.
[2023-10-13] MEDS: 0.9% Normal Saline (1000mL) 1,000 ML 1000 ML IV (17:10)
[2023-10-13] MEDS: Ondansetron 4 MG/2 ML Vial IV (17:10)
[2023-10-13 17:13] VITALS: BP 129/74; PULSE 68; RESP 15; O2SAT 98
[2023-10-13] MEDS: Dicyclomine 10 MG Capsule 20 MG PO (18:26)
[2023-10-13] MEDS: Fleet Enema 1 ML RC (18:26)
== END 2023-10-13 18:33 | disposition home or self-care (01) ==
LOC: ED 16:28
PROVIDERS: Emergency Provider Emergency Medicine; PCP Preventive Medicine Occupational Medicine; Visit Provider Emergency Medicine
DX: K59.00 Constipation, unspecified (principal); Z90.49 Acquired absence of other specified parts of digestive tract; J45.909 Unspecified asthma, uncomplicated; F17.210 Nicotine dependence, cigarettes, uncomplicated
CPT/HCPCS: 74177; 80053; 81001; 83690; 84703; 85025; 96361; 96374; 99283; J7030; Q9967; A4216; J2405

== ENCOUNTER 2024-01-14 00:01 | Emergency (ER) | payer MEDICAID, SELFPAY ==
[2024-01-14 00:02] VITALS: BP 121/72; PULSE 97; RESP 16; TEMP 36.6; O2SAT 98; BMI 26.9
[2024-01-14 00:57] LABS: Alcohol, Blood (Medical)-Serum < 3.0 mg/dL
[2024-01-14 01:00] LABS: Amphetamine Urine VISTA NEGATIVE (<1000 ng/mL); Barbiturate Urine VISTA NEGATIVE (< 200 ng/mL); Benzodiazepine Urine VISTA POSITIVE (< 200 ng/mL); Cocaine Urine VISTA NEGATIVE (< 300 ng/mL); Ecstacy Urine VISTA NEGATIVE (< 500 ng/mL); Methadone Urine VISTA NEGATIVE (< 300 ng/mL); PCP Urine VISTA NEGATIVE (< 25 ng/mL); THC Urine VISTA NEGATIVE (< 50 ng/mL); Vista UDS pH Range 5
[2024-01-14 01:01] VITALS: BP 93/58; PULSE 70; RESP 16; O2SAT 93
--- NOTE | 2024-01-14 01:02 | EDS_ITS ---
HPI HPI - Psych History of Present Illness Chief Complaint: Suicidal Informant: patient Narrative Narrative: Patient struggling with depression and suicidal thoughts, although she admits that she does not have the intent on harming yourself and she has formulated no plan. She has 2 children, and her father is , and she would not want them to be without a mother as well, also she states she could never kill herself but she does feel depressed and keeps having suicidal thoughts when she gets down, and had a bad evening that was stressful. This has been going on for 2 or 3 weeks. She is following with psychiatry as well as her family doctor. The psychiatrist put her on Lamictal as a mood stabilizer, she states it worked for about a month and it seemed to stop working so the dose was increased, and she was on Abilify that was discontinued, and subsequently she started feeling this way. Her family doctor put her back on the Abilify and they are looking for a different psychiatrist according to her. [facility] Medical History Acute maxillary sinusitis, unspecified Arthritis Asthma Back pain Bipolar 1 disorder Bladder spasms Chest pain Concussion Headache History of ovarian cyst Knee pain Limb weakness Migraine Sinusitis Stomach ulcer Tachycardia Home Medications clonazepam 2 mg tablet 2 mg PO BID PRN PRN Anxiety 03/24/22 [History Last Taken Unknown] aripiprazole 2 mg tablet 1 mg PO DAILY 07/16/22 [History Last Taken Unknown] metoprolol succinate 25 mg capsule sprinkle, ext. release 24 hr (Kapspargo Sprinkle) 25 mg PO DAILY 11/27/22 [History Last Taken Unknown] cyclobenzaprine 10 mg tablet 10 mg PO TID PRN Muscle Spasm #15 TABLETS 07/22/23 [Rx Last Taken Unknown] omeprazole 40 mg capsule,delayed release 40 mg PO DAILY #30 caps 09/19/23 [Rx Last Taken Unknown] ondansetron 4 mg disintegrating tablet 4 mg PO Q8H PRN PRN Nausea #10 tabs 09/19/23 [Rx Last Taken Unknown] dicyclomine 20 mg tablet 20 mg PO TID PRN abdominal pain #14 tabs 10/13/23 [Rx Last Taken Unknown] lamotrigine 200 mg tablet 200 mg PO BID 01/14/24 [History Last Taken Unknown] Allergy/AdvReac Type Severity Reaction Status Date / Time adhesive Allergy Rash Verified 01/14/24 00:14 amoxicillin Allergy Swelling Verified 01/14/24 00:14 erythromycin base Allergy Hives Verified 01/14/24 00:14 [Erythromycin Base] estradiol Allergy Anaphylaxis Verified 01/14/24 00:14 Penicillins [PCN] Allergy Anaphylaxis Verified 01/14/24 00:14 acetaminophen [From Tylenol] AdvReac Vomiting Verified 01/14/24 00:14 ferrous sulfate AdvReac Constipatio Verified 01/14/24 00:14 n Family History Other Breast cancer Hypertension Surgical History History of adenoidectomy History of appendectomy History of back surgery History of nasal surgery History of ovarian cystectomy History of placement of ear tubes Hx laparoscopic cholecystectomy Status post left breast lumpectomy Social History Smoking Status: Current every day smoker tobacco type: cigarettes alcohol intake: never ROS ROS ED Constitutional Constitutional ED: Reports other Details: Sleeping okay no significant insomnia ; Denies chills or fever(s) Eyes Eyes: Denies change in vision or diplopia ENT ENT ED: Denies rhinorrhea or sore throat Cardiovascular Cardiovascular: Denies chest pain or palpitations Respiratory/Chest Respiratory/Chest: Denies cough or dyspnea Gastrointestinal Gastrointestinal: Denies abdominal pain, diarrhea, nausea or vomiting Genitourinary Genitourinary ED: Denies dysuria or hematuria Musculoskeletal Musculoskeletal: Denies back pain or neck pain Integumentary Denies abscess or rash Neurologic Neurologic: Denies headache(s), paresthesias or weakness Psychiatric Psychiatric: Reports depression and suicidal thoughts; Denies homicidal ideation or suicidal ideation EXAM Physical Exam Const Vital Signs: 01/14/24 00:02 01/14/24 01:01 Temperature 97.8 F Temperature Source Oral Pulse Rate 97 70 Respiratory Rate 16 16 Blood Pressure 121/72 H 93/58 L Blood Pressure Mean 88 69 Pulse Ox 98 93 Oxygen Delivery Method Room Air Room Air Positive well nourished and well developed General Appearance ED: well developed and NAD HEENT Reports moist mucous membranes normocephalic and atraumatic Eyes PERRL and EOMs intact bilaterally General Eye ED: Negative for scleral icterus Neck no lymphadenopathy and supple Resp normal respiratory effort Back/Spine normal ROM Extremity normal to inspection General Extremety ED: Negative for edema General Extremity: Negative for edema Neuro oriented x3, CN's II-XII intact bilaterally, no sensory deficits noted and gait normal Sensorium / Orientation: alert Motor Exam: strength 5/5 throughout Psych mental status grossly normal, thought process normal, cooperative, activity/motor behavior normal and denies homicidal ideation Appearance: grossly normal, appropriate and well kempt Attitude: calm and engaged Activity / Motor Behavior: appropriate eye contact Speech: normal speech Mood & Affect: depressed Thought Content: suicidality Insight: insight good Judgement: judgement good Skin Lesions: no lesions Rashes: no rashes MDM MDM MDM Narrative Medical decision making narrative: Alcohol negative, normal exam normal vital signs patient is insightful and medically cleared for psychiatric evaluation. We discussed at length how I could help her here. She does not seem to actually be suicidal, she states she talked to crisis on the phone earlier and they did not seem to be much help, which is why she came here. I offered to sit and talk and listen to her for a while, or to have our on-call aged or disabled care worker evaluate her, I told her I did not think she seemed like she needed to be pink slipped to a psychiatric facility against her will and she is in agreement with that. She seems to be insightful and does not seem to have active suicidal ideation, she just wants to feel better, less depressed, so she is not having suicidal thoughts anymore. I did tell her that I do not recommend changing any of her medications right now or managing her long-term medications and she understands that. She was amenable to talking to crisis. Crisis spoke with her, all are amenable to safety plan and discharge home, I am good with that as well. Lab Data Attestation: I reviewed the patient's lab results. Labs: Laboratory Results - last 24 hr 01/14/24 01/14/24 00:32 00:36 Urine Opiates Screen NEGATIVE Urine Methadone Screen NEGATIVE Ur Barbiturates Screen NEGATIVE Ur Phencyclidine Scrn NEGATIVE Ur Amphetamines Screen NEGATIVE MDMA (Ecstasy) Screen NEGATIVE U Benzodiazepines Scrn POSITIVE H Urine Cocaine Screen NEGATIVE U Cannabinoids Screen NEGATIVE Ur Drug Screen Comment Ethyl Alcohol < 3.0 Management Discussion w/another healthcare provider: Behavioral health Discharge Plan Triage Chief Complaint: Suicidal ED Provider: Rolando Celeste Dx/Rx/DC Orders Clinical Impression: Suicidal thoughts Instructions: ED Depression Prescriptions: No Action clonazepam 2 mg tablet 2 mg PO BID PRN PRN (Reason: Anxiety) Patient Comments: take 1 tablet by mouth twice a day aripiprazole 2 mg tablet 1 mg PO DAILY Kapspargo Sprinkle 25 mg capsule,sprinkle,ER 24hr 25 mg PO DAILY Patient Comments: TAKE 1 CAPSULE BY MOUTH EVERY DAY ondansetron [ondansetron] 4 mg tablet,disintegrating 4 mg PO Q8H PRN PRN (Reason: Nausea) Qty: 10 0RF omeprazole 40 mg capsule,delayed release(DR/EC) 40 mg PO DAILY Qty: 30 0RF dicyclomine 20 mg tablet 20 mg PO TID PRN (Reason: abdominal pain) Qty: 14 0RF cyclobenzaprine 10 mg tablet 10 mg PO TID PRN (Reason: Muscle Spasm) Qty: 15 0RF lamotrigine 200 mg tablet 200 mg PO BID Primary Care Provider: Blaise Wetzel Referrals: Blaise Wetzel DO [Primary Care Provider] - As soon as possible Disposition Disposition: Home, Self Care
--- NOTE | 2024-01-14 01:03 | ED.RN ---
CRISIS CALLED FOR EVALUATION AND CHART FAXED
[2024-01-14 02:52] VITALS: BP 126/87; PULSE 78; RESP 16; TEMP 36.6; O2SAT 99
== END 2024-01-14 02:53 | disposition home or self-care (01) ==
PROVIDERS: Emergency Provider Emergency Medicine; PCP Preventive Medicine Occupational Medicine; Visit Provider Emergency Medicine
DX: R45.851 Suicidal ideations (principal); F32.A Depression, unspecified; J45.909 Unspecified asthma, uncomplicated; F17.210 Nicotine dependence, cigarettes, uncomplicated
CPT/HCPCS: 80307; 80320; 99282; G0480

== ENCOUNTER 2024-01-28 21:02 | Emergency (ER) | payer MEDICAID, SELFPAY ==
[2024-01-28 21:02] VITALS: BP 107/67; PULSE 97; RESP 16; TEMP 36.6; O2SAT 98; BMI 26.4
--- NOTE | 2024-01-28 21:51 | CT_ITS ---
INDICATION: trauma EXAMINATION: CT PELVIS BONE - CT Pelvis W/O Contrast Injection TECHNIQUE: Routine noncontrast bone CT protocol was performed of the pelvis. 2-D reformats were performed by the technologist. A radiation dose optimization technique was used for this scan. IV Contrast dosage and agent: None. COMPARISON: None. FINDINGS: SOFT TISSUES: No soft tissue swelling or gas. No radiopaque foreign body. BONES/JOINTS: No acute fracture or subluxation. Normal alignment. Mild degenerative changes of the L5-S1 disc space. No sclerotic or destructive changes. CT/Pelvis without IV Contrast IMPRESSION: No evidence of pelvic fracture. Electronically Signed: Trevin Reza MD at 23:20 EDT ,
--- NOTE | 2024-01-28 21:52 | EDS_ITS ---
HPI HPI - Fall History of Present Illness Chief Complaint: Fall Informant: patient Narrative Narrative: 38-year-old female states that earlier today she fell going down the wooden stairs of their house. She states that as she fell she injured her right distal forearm noting a bruise over the volar aspect now. She notes a hematoma/contusion of the right buttock and states that tailbone is starting to hurt. She denies any hip pain. She notes that her right knee was bent awkwardly and she notes pain over the medial aspect. She denies any swelling or bruising there. No loss of consciousness. She does not take blood thinners. [facility] Medical History Acute maxillary sinusitis, unspecified Arthritis Asthma Back pain Bipolar 1 disorder Bladder spasms Chest pain Concussion Headache History of ovarian cyst Knee pain Limb weakness Migraine Sinusitis Stomach ulcer Tachycardia Home Medications clonazepam 2 mg tablet 2 mg PO BID PRN PRN Anxiety 03/24/22 [History Last Taken Unknown] metoprolol succinate 25 mg capsule sprinkle, ext. release 24 hr (Kapspargo Sprinkle) 25 mg PO DAILY 11/27/22 [History Last Taken Unknown] lamotrigine 200 mg tablet 200 mg PO BID 01/14/24 [History Last Taken Unknown] aripiprazole 5 mg tablet (Abilify) 5 mg PO DAILY 01/28/24 [History Last Taken Unknown] lamotrigine 200 mg tablet (Lamictal) 200 mg PO BID bipolar 01/28/24 [History Last Taken Unknown] oxycodone 5 mg tablet 5 mg PO Q6H PRN pain 5 days #20 tabs 01/28/24 [Rx Last Taken Unknown] Allergy/AdvReac Type Severity Reaction Status Date / Time adhesive Allergy Rash Verified 01/28/24 21:04 amoxicillin Allergy Swelling Verified 01/28/24 21:04 erythromycin base Allergy Hives Verified 01/28/24 21:04 [Erythromycin Base] estradiol Allergy Anaphylaxis Verified 01/28/24 21:04 Penicillins [PCN] Allergy Anaphylaxis Verified 01/28/24 21:04 acetaminophen [From Tylenol] AdvReac Vomiting Verified 01/28/24 21:04 ferrous sulfate AdvReac Constipatio Verified 01/28/24 21:04 n Family History Other Breast cancer Hypertension Surgical History History of adenoidectomy History of appendectomy History of back surgery History of nasal surgery History of ovarian cystectomy History of placement of ear tubes Hx laparoscopic cholecystectomy Status post left breast lumpectomy Social History Smoking Status: Current every day smoker tobacco type: cigarettes alcohol intake: never ROS ROS ED Constitutional Constitutional ED: Denies chills, fever(s) or weight loss Eyes Eyes: Denies change in vision or diplopia ENT ENT ED: Denies ear pain, rhinorrhea or sore throat Cardiovascular Cardiovascular: Denies chest pain, orthopnea, palpitations or racing heartbeat Respiratory/Chest Respiratory/Chest: Denies cough, dyspnea or orthopnea Gastrointestinal Gastrointestinal: Denies abdominal pain, diarrhea, nausea or vomiting Genitourinary Genitourinary ED: Denies dysuria, hematuria or urinary frequency Musculoskeletal Musculoskeletal: Reports back pain and other Details: Right forearm right knee buttock pain ; Denies arthralgias, myalgias or neck pain Integumentary Denies abscess or rash Neurologic Neurologic: Denies headache(s) or weakness Psychiatric Psychiatric: Denies anxiety, depression, suicidal ideation or suicidal thoughts Endocrine Endocrinology: Denies polydipsia, polyphagia or polyuria Allergic/Immunologic Allergic/Immunologic ED: Denies mouth swelling, tongue swelling or urticaria EXAM Physical Exam Const Vital Signs: 01/28/24 21:02 01/29/24 00:00 01/29/24 00:02 Temperature 98 F 96.6 F L Temperature Source Temporal Pulse Rate 97 82 Respiratory Rate 16 15 Respiratory Effort Normal Respiratory Depth Normal Respiratory Pattern Normal Blood Pressure 107/67 97/60 Blood Pressure Mean 80 72 Pulse Ox 98 93 Oxygen Delivery Method Room Air Room Air Positive well nourished and well developed General Appearance ED: well developed HEENT Reports normocephalic, head/scalp atraumatic and moist mucous membranes Eyes PERRL and EOMs intact bilaterally Neck no lymphadenopathy, supple and no JVD Resp normal respiratory effort and clear to auscultation bilaterally Cardio regular rate, regular rhythm and no murmurs GI normal to inspection, nondistended, normoactive bowel sounds and non-tender Palpation: soft Back/Spine no CVA tenderness and normal ROM Back/Spine Narrative: There is a large hematoma of the right buttock with purpleish ecchymosis. She has tenderness to palpation over L4 and L5. Extremity Extremity Narrative: Small contusion of the medial volar aspect of the distal forearm more proximal to the wrist. No obvious deformity. Tenderness palpation over the medial right knee. There is no significant ligamentous laxity compared to the left. General Extremety ED: Negative for edema General Extremity: Negative for edema Neuro oriented x3 and CN's II-XII intact bilaterally Sensorium / Orientation: alert Motor Exam: strength 5/5 throughout Psych mental status grossly normal Mood & Affect: Negative for depressed or tearful Skin no rashes or lesions noted MDM MDM MDM Narrative Medical decision making narrative: CT of the pelvis and lumbar spine does not demonstrate any acute fracture. The contusion appears to be in the soft tissue and not extending from the muscle and I do not appreciate a large intramuscular hematoma. Made it interpretation of the knee x-ray is no acute fracture. I suspect that this is a knee sprain. Patient was able to secure a ride home and we gave her Toradol and oxycodone. I will write for oxycodone at home. Patient is to expect soreness and continued bruising. Return if worsening or concerns Radiography Diagnostic Testing: Clinical Impression(s) from Imaging Studies Pelvis CT 01/28/24 21:51 IMPRESSION: No evidence of pelvic fracture. Electronically Signed: Trevin Reza MD at 23:20 EDT Reading Location ID and State: [facility] / [place] Tel , Service support , Lumbar Spine CT 01/28/24 21:56 IMPRESSION: No evidence of acute lumbar spinal fracture or spondylolisthesis. Mild multilevel degenerative disc disease and spondylosis. Electronically Signed: Trevin Reza MD at 23:19 EDT , Knee X-Ray 01/28/24 22:22 IMPRESSION: No acute radiographic abnormalities. Electronically Signed: Trevin Reza MD at 23:26 EDT , Discharge Plan Triage Chief Complaint: Fall ED Provider: Hernesto Milligan Dx/Rx/DC Orders Clinical Impression: Sprain of right knee, Contusion of buttock, Contusion of forearm, Fall, Acute lumbar myofascial strain Instructions: ED Coccyx or Sacrum Contusion, ED Knee Sprain Prescriptions: New oxycodone 5 mg tablet 5 mg PO Q6H PRN (Reason: pain) 5 Days Qty: 20 0RF No Action clonazepam 2 mg tablet 2 mg PO BID PRN PRN (Reason: Anxiety) Patient Comments: take 1 tablet by mouth twice a day Kapspargo Sprinkle 25 mg capsule,sprinkle,ER 24hr 25 mg PO DAILY Patient Comments: TAKE 1 CAPSULE BY MOUTH EVERY DAY lamotrigine 200 mg tablet 200 mg PO BID aripiprazole [Abilify] 5 mg tablet 5 mg PO DAILY lamotrigine [Lamictal] 200 mg tablet 200 mg PO BID Rx Instructions: 200 in morning, 200 at night Primary Care Provider: Blaise Wetzel Referrals: Blaise Wetzel DO [Primary Care Provider] - 1 Week if not improving Disposition Disposition: Home, Self Care Discharge Date/Time: 01/29/24 00:06
--- NOTE | 2024-01-28 21:56 | CT_ITS ---
INDICATION: injury EXAMINATION: CT LUMBAR SPINE - CT Spine Lumbar W/O Contrast Injection TECHNIQUE: Helically acquired images were obtained of the lumbar spine. 2D reformats were reviewed. A radiation dose optimization technique was used for this scan. IV Contrast dosage and agent: None. COMPARISON: None. FINDINGS: VERTEBRAE: No fracture or traumatic subluxation. No discrete lytic or blastic abnormality observed. Normal alignment. DISCS and SPINAL CANAL: Mild multilevel degenerative disc disease and spondylosis. No critical stenosis. VISUALIZED ABDOMEN: Visualized abdominal aorta is not dilated. There is no retroperitoneal adenopathy. CT/Spine Lumbar without Contrast IMPRESSION: No evidence of acute lumbar spinal fracture or spondylolisthesis. Mild multilevel degenerative disc disease and spondylosis. Electronically Signed: Trevin Reza MD at 23:19 EDT ,
--- NOTE | 2024-01-28 22:22 | RAD_ITS ---
INDICATION: injury EXAMINATION/TECHNIQUE: X-RAY - RIGHT XR Knee Complete 4 Views or More COMPARISON: None. FINDINGS: No acute fracture or malalignment. No significant degenerative changes are seen. No joint effusion. The soft tissues are unremarkable. RAD/Knee 4 or More Views IMPRESSION: No acute radiographic abnormalities. Electronically Signed: Trevin Reza MD at 23:26 EDT ,
[2024-01-28] MEDS: Ketorolac 60 MG/2 ML Vial IM (23:56)
[2024-01-28] MEDS: oxyCODONE 5 MG Tablet 10 MG PO (23:57)
[2024-01-29 00:02] VITALS: BP 97/60; PULSE 82; RESP 15; TEMP 35.9; O2SAT 93
== END 2024-01-29 00:06 | disposition home or self-care (01) ==
PROVIDERS: Emergency Provider Emergency Medicine; PCP Preventive Medicine Occupational Medicine; Visit Provider Emergency Medicine
DX: S30.0XXA Contusion of lower back and pelvis, initial encounter (principal); S39.012A Strain of muscle, fascia and tendon of lower back, initial encounter; S83.91XA Sprain of unspecified site of right knee, initial encounter; Z79.899 Other long term (current) drug therapy; F17.210 Nicotine dependence, cigarettes, uncomplicated; S50.11XA Contusion of right forearm, initial encounter; W10.9XXA Fall (on) (from) unspecified stairs and steps, initial encounter
CPT/HCPCS: 72131; 72192; 73564; 96372; 99282

== ENCOUNTER 2024-03-13 10:54 | Emergency (ER) | payer SELFPAY ==
[2024-03-13 10:55] VITALS: BP 111/68; PULSE 100; RESP 18; TEMP 36.8; O2SAT 99; BMI 25.5
--- NOTE | 2024-03-13 10:59 | ED.VIS.BACK ---
HPI History of Present Illness Chief Complaint: Back [facility] Medical History Acute maxillary sinusitis, unspecified Arthritis Asthma Back pain Bipolar 1 disorder Bladder spasms Chest pain Concussion Headache History of ovarian cyst Knee pain Limb weakness Migraine Sinusitis Stomach ulcer Tachycardia Home Medications ?Medication ?Instructions ?Recorded ?Last Taken ?Type clonazepam 2 mg tablet 2 mg PO BID PRN PRN Anxiety 03/24/22 Unknown History metoprolol succinate 25 mg capsule 25 mg PO DAILY 11/27/22 Unknown History sprinkle, ext. release 24 hr (Kapspargo Sprinkle) lamotrigine 200 mg tablet 200 mg PO BID 01/14/24 Unknown History aripiprazole 5 mg tablet (Abilify) 5 mg PO DAILY 01/28/24 Unknown History lamotrigine 200 mg tablet 200 mg PO BID bipolar 01/28/24 Unknown History (Lamictal) oxycodone 5 mg tablet 5 mg PO Q6H PRN pain 5 days #20 01/28/24 Unknown Rx tabs Allergy/AdvReac Type Severity Reaction Status Date / Time adhesive Allergy Rash Verified 03/13/24 10:55 amoxicillin Allergy Swelling Verified 03/13/24 10:55 erythromycin base Allergy Hives Verified 03/13/24 10:55 (Erythromycin Base) estradiol Allergy Anaphylaxis Verified 03/13/24 10:55 Penicillins (PCN) Allergy Anaphylaxis Verified 03/13/24 10:55 acetaminophen (From Tylenol) AdvReac Vomiting Verified 03/13/24 10:55 ferrous sulfate AdvReac Constipatio Verified 03/13/24 10:55 n Family History Other Breast cancer Hypertension Surgical History History of adenoidectomy History of appendectomy History of back surgery History of nasal surgery History of ovarian cystectomy History of placement of ear tubes Hx laparoscopic cholecystectomy Status post left breast lumpectomy Social History Smoking Status: Current every day smoker tobacco type: cigarettes alcohol intake: never EXAM Physical Exam Const Vital Signs: 03/13/24 10:55 03/13/24 11:46 03/13/24 11:48 Temperature 98.2 F Temperature Source Temporal Pulse Rate 100 88 88 Respiratory Rate 18 18 18 Blood Pressure 111/68 109/80 108/72 Blood Pressure Mean 82 89 84 Pulse Ox 99 98 98 Oxygen Delivery Method Room Air Room Air Room Air [facility] [place] Narrative Medical decision making narrative: HISTORY OF PRESENT ILLNESS: 39-year-old female presents with back pain. Notes she hurt her back while berry picker a window air conditioning unit. She states she did this yesterday. She notes this morning she woke up with severe bilateral back pain. She states when she was in her kitchen before arrival she had an episode of bowel and bladder incontinence. Denies any leg weakness, loss of sensation or difficulty with walking or movement. Denies recent back surgery, fever, IV drug use, urinary retention. REVIEW OF SYSTEMS: Pertinent positives: Back pain, bowel or bladder incontinence Pertinent negatives: Urinary retention, numbness weakness or loss sensation in the legs PHYSICAL EXAM: Nursing triage notes reviewed, Vital signs reviewed Constitutional: please see mdm HENT: MMM Eyes: Pupils equal round and reactive to light, Extraocular muscles intact Neck: No stridor, no JVD, full neck ROM Lungs: Clear to auscultation, No wheezing or rales. No increased work of breathing, no conversational dyspnea, no accessory muscle use, no nasal flaring. No respiratory distress noted Heart: Regular rate and rhythm, No murmurs, No rubs and No gallops, 2+ distal pulses (radial, femoral, posterior tibial) in all extremities Abdomen: Soft, there is no tenderness, rigidity, rebound or guarding, no obvious peritoneal signs, no palpable pulsatile abdominal masses, no auscultated abdominal bruit : No CVAT Extremities: No edema Neuro: Intact sensation L1-S1 dermatomal distributions. Intact 5/5 strength in hip flexion (T12-L3). Knee extension (L2-L4). Ankle dorsiflexion (L4-L5). Ankle plantar flexion (S1). Great toe extension (L5). 2+ patellar and Achilles DTRs. Rectal: Performed form builder nurse Lisbeth present. Showed intact rectal tone, no perineal anesthesia noted Skin: No rash or lesions noted MEDICAL DECISION MAKING: Chief Complaint: Back pain External records reviewed: CT scan of the lumbar spine shows no evidence of acute lumbar spinal fracture or spondylolisthesis, mild multi generative disc disease Factors affecting care: Chronic lumbar back pain Social determinants of health: History of mental health disorder (anxiety) History obtained from others: none Consults: none [facility] Narrative: Patient was hemodynamically stable afebrile nontoxic-appearing. Exam with no focal neurologic deficits. Intact rectal tone I considered the following differential diagnosis: Space-occupying lesion spine, conus medullaris syndrome, cauda equina, epidural abscess, musculoskeletal back pain I offered the patient a stat MRI given report of bowel or bladder incontinence as this is a red flag sign of severe life-threatening/changing spinal injury. The patient was alert and orient x 3. She had capacity to make her medical decisions. She decided to forego MRI at this time stating that she cannot remove her jewelry to undergo the study. Patient was able to make her medical decisions and she chose to be discharged home with anti-inflammatories. Strict return precautions were discussed. AMA note: I have recommended admission to the hospital, but the patient refuses. The risks (including but not limited to suffering and ) as well as the benefits were explained to the patient. Questions were sought and answered, the patient voiced understanding and accepts these risks. I have encouraged the patient to return to have their evaluation completed as we are glad to do so. Patient had capacity to make his or her own medical decisions. Patient was alert and orient x3 and of sound mind at time of discussion. I have also instructed the patient on the importance of follow-up and to return for any worsening or worrisome concerns. The patient appears competent to make medical decisions at this time. The patient and/or family, caregivers express understanding. The patient and/or family, caregivers agrees with the plan. Shared decision making: I will have a discussion with the patient and or visitors regarding risk/benefits of further testing or admission. They will be made aware of of the risk/benefits inherent in this decision they will be given the opportunity to voice understanding. Total critical care time today provided was at least 0 minutes. This excludes separately billable procedures. Critical care time (if documented) is secondary to the patient having high probability of clinically significant/life threatening deterioration in the patient's condition which required my urgent intervention. Impression: 1. Back pain 2. Bowel or bladder incontinence Dispo: Discharge home This note was generated with [employer] software. It may contain incorrect words, spelling, and punctuation that were not noted in review of the chart prior to signing. Discharge Plan Triage Chief Complaint: Back ED Provider: Chester Luciano Dx/Rx/DC Orders Instructions: ED Back Pain (Acute or Chronic) Prescriptions: No Action clonazepam 2 mg tablet 2 mg PO BID PRN PRN (Reason: Anxiety) Patient Comments: take 1 tablet by mouth twice a day Kapspargo Sprinkle 25 mg capsule,sprinkle,ER 24hr 25 mg PO DAILY Patient Comments: TAKE 1 CAPSULE BY MOUTH EVERY DAY lamotrigine 200 mg tablet 200 mg PO BID aripiprazole [Abilify] 5 mg tablet 5 mg PO DAILY lamotrigine [Lamictal] 200 mg tablet 200 mg PO BID Rx Instructions: 200 in morning, 200 at night oxycodone 5 mg tablet 5 mg PO Q6H PRN (Reason: pain) 5 Days Qty: 20 0RF Primary Care Provider: Blaise Wetzel Referrals: Blaise Wetzel DO [Primary Care Provider] - Activity Restrictions/Additional Instructions: Thank you for trusting us with your care today! Please take Tylenol (2 pills, 650 mg), ibuprofen (2 pills, 400 mg) every 6 hours as needed for pain and fever control. Please go to your local pharmacy or drugstore and obtain Salonpas lidocaine patches. Please return to the emergency department if your symptoms change or worsen. Please follow with your primary care physician for further outpatient evaluation and management. Print Language: Welsh Disposition Disposition: Home, Self Care Discharge Date/Time: 03/13/24 12:35
--- NOTE | 2024-03-13 11:34 | ED.RN ---
Patient refusing MRI because she does not want to take out nose piercing. MD and nurse educated pt about risks
[2024-03-13] MEDS: Lidocaine 5% Patch 1 PATCH TOPICAL (11:41)
[2024-03-13] MEDS: Ibuprofen 200 MG Tablet 400 MG PO (11:41)
[2024-03-13 11:46] VITALS: BP 109/80; PULSE 88; RESP 18; O2SAT 98
[2024-03-13 11:48] VITALS: BP 108/72; PULSE 88; RESP 18; O2SAT 98
== END 2024-03-13 12:35 | disposition home or self-care (01) ==
PROVIDERS: Emergency Provider Emergency Medicine; PCP Preventive Medicine Occupational Medicine; Visit Provider Emergency Medicine
DX: M54.9 Dorsalgia, unspecified (principal); F41.9 Anxiety disorder, unspecified; R15.9 Full incontinence of feces; J45.909 Unspecified asthma, uncomplicated; F17.210 Nicotine dependence, cigarettes, uncomplicated; R32 Unspecified urinary incontinence
CPT/HCPCS: 99282

== ENCOUNTER 2024-04-18 19:35 | Emergency (ER) | payer MEDICAID, SELFPAY ==
[2024-04-18 19:36] VITALS: BP 105/79; PULSE 102; RESP 17; TEMP 36.1; O2SAT 99; BMI 25.4
[2024-04-18] MEDS: 0.9% Normal Saline (1000mL) 1,000 ML 999 ML IV (22:20)
[2024-04-18] MEDS: Metoclopramide 10 MG/2 ML Vial 5 MG IV (22:20)
[2024-04-18] MEDS: Ketorolac 30 MG/ML Syringe IV (22:21)
--- NOTE | 2024-04-18 22:27 | EDS_ITS ---
HPI History of Present Illness Chief Complaint: Other, Pain/Inj Narrative Narrative: Patient is a 39-year-old female with a past medical history of bipolar 1 disorder, headaches, asthma who presents to the emergency department chief complaint of headache. Patient states that she started yesterday afternoon started develop headache that progressively worsened into today prompting her to come here for the evaluation management. Patient states that she has been under a lot of stress recently believes that this is causing her symptoms. She also noted that she had some episodes of emesis yesterday but has not vomited today. Patient denies any trauma. Patient rates her pain a 6 out of 10 [facility] Medical History Tachycardia Bipolar 1 disorder Concussion Headache History of ovarian cyst Arthritis Acute maxillary sinusitis, unspecified Bladder spasms Sinusitis Back pain Limb weakness Asthma Knee pain Chest pain Migraine Stomach ulcer Home Medications ?Medication ?Instructions ?Recorded ?Last Taken ?Type clonazepam 2 mg tablet 2 mg PO BID PRN PRN Anxiety 03/24/22 Unknown History metoprolol succinate 25 mg capsule 25 mg PO DAILY 11/27/22 Unknown History sprinkle, ext. release 24 hr (Kapspargo Sprinkle) lamotrigine 200 mg tablet 200 mg PO BID 01/14/24 Unknown History aripiprazole 5 mg tablet (Abilify) 5 mg PO DAILY 01/28/24 Unknown History lamotrigine 200 mg tablet 200 mg PO BID bipolar 01/28/24 Unknown History (Lamictal) oxycodone 5 mg tablet 5 mg PO Q6H PRN pain 5 days #20 01/28/24 Unknown Rx tabs baclofen 10 mg tablet 10 mg PO Q12H #30 TABLETS 04/06/24 Unknown Rx Allergy/AdvReac Type Severity Reaction Status Date / Time adhesive Allergy Rash Verified 04/18/24 19:37 amoxicillin Allergy Swelling Verified 04/18/24 19:37 erythromycin base Allergy Hives Verified 04/18/24 19:37 (Erythromycin Base) estradiol Allergy Anaphylaxis Verified 04/18/24 19:37 Penicillins (PCN) Allergy Anaphylaxis Verified 04/18/24 19:37 acetaminophen (From Tylenol) AdvReac Vomiting Verified 04/18/24 19:37 ferrous sulfate AdvReac Constipatio Verified 04/18/24 19:37 n Family History Other Breast cancer Hypertension Surgical History History of back surgery History of placement of ear tubes History of nasal surgery Status post left breast lumpectomy Hx laparoscopic cholecystectomy History of ovarian cystectomy History of appendectomy History of adenoidectomy Social History Smoking Status: Current every day smoker tobacco type: cigarettes alcohol intake: never ROS ROS ED ROS Narrative Constitutional: Complains of headache as noted above denies lightheadedness, dizziness, fevers or chills EENT: Denies any double vision blurry vision change in vision Cardiology: Denies chest pain or palpitations respiratory: Denies cough wheezing shortness of breath Abdomen: Denies abdominal pain nausea vomiting or diarrhea Genitourinary: Denies any pain formation, hematuria, polyuria Neurological: Denies any numbness, weakness, tingling Skin: Denies any rashes or lesions EXAM Physical Exam Narrative Exam Narrative: General: Patient was lying in bed rest comfortably did not appear to be in acute distress Head: Atraumatic, normocephalic EENT: Pupils equal round react light bilaterally, extraocular muscle intact b roseann, no conjunctival injection noted Neck: Soft, supple, trachea midline Cardiovascular: Regular rate rhythm no murmurs gallops rubs noted Respiratory: Clear to auscultation bilaterally no rales or wheeze noted Abdomen: Soft, nondistended, nontender to palpation no rebound or guarding on exam Neurological: Patient follow commands that she was at [facility] year is 2023. Patient completed finger-nose test without any difficulty. No vertical or horizontal nystagmus on exam. No meningeal signs noted. Skin: Warm, dry, intact no rashes lesions noted Psychiatric: Mood affect appropriate Const Vital Signs: 04/18/24 19:36 Temperature 96.9 F L Temperature Source Temporal Pulse Rate 102 H Respiratory Rate 17 Blood Pressure 105/79 Blood Pressure Mean 87 Pulse Ox 99 Oxygen Delivery Method Room Air MDM MDM MDM Narrative Medical decision making narrative: Patient is a 39-year-old female who presents to the emerged part with chief complaint of a gradually worsening headache over the past 2 days. Patient will be given IV fluids, Toradol and Reglan and then be reevaluated. On reevaluation the patient and she states that her headache has improved and would like to go home at this point in time. Patient was encouraged to follow- up with her primary care physician 2 to 3 days. She was encouraged to increase hydration with oral fluids water. She is encouraged to use Tylenol/ibuprofen for pain control. Patient is currently return if worsening symptoms any concerns she is agreeable this plan all question concerns answered she was discharged home in stable condition. Discharge Plan Triage Chief Complaint: Other, Pain/Inj ED Provider: Daniel Feliciano Dx/Rx/DC Orders Clinical Impression: Headache Prescriptions: No Action clonazepam 2 mg tablet 2 mg PO BID PRN PRN (Reason: Anxiety) Patient Comments: take 1 tablet by mouth twice a day baclofen 10 mg tablet 10 mg PO Q12H Qty: 30 0RF Rx Instructions: take with food can take 5-10 mg Kapspargo Sprinkle 25 mg capsule,sprinkle,ER 24hr 25 mg PO DAILY Patient Comments: TAKE 1 CAPSULE BY MOUTH EVERY DAY lamotrigine 200 mg tablet 200 mg PO BID aripiprazole [Abilify] 5 mg tablet 5 mg PO DAILY lamotrigine [Lamictal] 200 mg tablet 200 mg PO BID Rx Instructions: 200 in morning, 200 at night oxycodone 5 mg tablet 5 mg PO Q6H PRN (Reason: pain) 5 Days Qty: 20 0RF Primary Care Provider: Blaise Wetzel Referrals: Blaise Wetzel DO [Primary Care Provider] - Activity Restrictions/Additional Instructions: Follow your primary care physician in outpatient setting. Return with worsening symptoms or concerns. Use ibuprofen/Tylenol [id number] for pain control. Increase water intake to ensure hydrated. Print Language: Latvian Disposition Disposition: Home, Self Care
== END 2024-04-18 23:17 | disposition home or self-care (01) ==
PROVIDERS: Emergency Provider Emergency Medicine; PCP Preventive Medicine Occupational Medicine; Visit Provider Emergency Medicine
DX: R51.9 Headache, unspecified (principal); F31.9 Bipolar disorder, unspecified; J45.909 Unspecified asthma, uncomplicated; F17.210 Nicotine dependence, cigarettes, uncomplicated
CPT/HCPCS: 96361; 96374; 96375; 99282; J7030; A4216

== ENCOUNTER 2024-04-30 21:09 | Emergency (ER) | payer MEDICAID, SELFPAY ==
[2024-04-30 21:09] VITALS: BP 105/71; PULSE 91; RESP 18; TEMP 36.6; O2SAT 99; BMI 26.1
--- NOTE | 2024-04-30 21:56 | EDS_ITS ---
HPI History of Present Illness Chief Complaint: Back Informant: patient Onset/Context/Timing Onset: Today Narrative Narrative: Patient presents secondary to acute on chronic back pain. She states that she was taking a nap on the couch when her dogs started barking and woke her suddenly. She turned to get up from the couch and felt a pulling pain in the right lower back. She does report sharp pain that wraps around her right hip. No problems with bowel or bladder control. She took Toradol and baclofen prior to arrival and noted no improvement with this. Patient does report a history of a herniated disc at L5-S1. She states the last time she had imaging studies they told her it was not bad enough for any surgical intervention. [facility] Medical History Tachycardia Bipolar 1 disorder Concussion Headache History of ovarian cyst Arthritis Acute maxillary sinusitis, unspecified Bladder spasms Sinusitis Back pain Limb weakness Asthma Knee pain Chest pain Migraine Stomach ulcer Home Medications ?Medication ?Instructions ?Recorded ?Last Taken ?Type clonazepam 2 mg tablet 2 mg PO BID PRN PRN Anxiety 03/24/22 Unknown History metoprolol succinate 25 mg capsule 25 mg PO DAILY 11/27/22 Unknown History sprinkle, ext. release 24 hr (Kapspargo Sprinkle) lamotrigine 200 mg tablet 200 mg PO BID 01/14/24 Unknown History aripiprazole 5 mg tablet (Abilify) 5 mg PO DAILY 01/28/24 Unknown History lamotrigine 200 mg tablet 200 mg PO BID bipolar 01/28/24 Unknown History (Lamictal) baclofen 10 mg tablet 10 mg PO Q12H #30 TABLETS 04/06/24 Unknown Rx oxycodone 5 mg tablet 5 mg PO Q8H PRN pain 1 day #3 tabs 04/30/24 Unknown Rx Allergy/AdvReac Type Severity Reaction Status Date / Time adhesive Allergy Rash Verified 04/30/24 21:09 amoxicillin Allergy Swelling Verified 04/30/24 21:09 erythromycin base Allergy Hives Verified 04/30/24 21:09 (Erythromycin Base) estradiol Allergy Anaphylaxis Verified 04/30/24 21:09 Penicillins (PCN) Allergy Anaphylaxis Verified 04/30/24 21:09 acetaminophen (From Tylenol) AdvReac Vomiting Verified 04/30/24 21:09 ferrous sulfate AdvReac Constipatio Verified 04/30/24 21:09 n Family History Other Breast cancer Hypertension Surgical History History of back surgery History of placement of ear tubes History of nasal surgery Status post left breast lumpectomy Hx laparoscopic cholecystectomy History of ovarian cystectomy History of appendectomy History of adenoidectomy Social History Smoking Status: Current every day smoker tobacco type: cigarettes alcohol intake: never ROS ROS ED Constitutional Constitutional ED: Denies chills or fever(s) Eyes Eyes: Denies discharge from eye(s) ENT ENT ED: Denies discharge from eye(s), rhinorrhea or sore throat Cardiovascular Cardiovascular: Denies chest pain Respiratory/Chest Respiratory/Chest: Denies cough or dyspnea Gastrointestinal Gastrointestinal: Denies abdominal pain, nausea or vomiting Genitourinary Genitourinary ED: Denies dysuria Musculoskeletal Musculoskeletal: Reports back pain and extremity pain Integumentary Denies Abrasions or rash Neurologic Neurologic: Denies headache(s) or weakness Psychiatric Psychiatric: Denies anxiety or depression Allergic/Immunologic Allergic/Immunologic ED: Denies lip swelling or urticaria EXAM Physical Exam Const Vital Signs: 04/30/24 21:09 Temperature 97.9 F Temperature Source Temporal Pulse Rate 91 Respiratory Rate 18 Blood Pressure 105/71 Blood Pressure Mean 82 Pulse Ox 99 Oxygen Delivery Method Room Air Positive well nourished and well developed General Appearance ED: well developed HEENT Reports moist mucous membranes Eyes EOMs intact bilaterally Resp normal respiratory effort and clear to auscultation bilaterally Cardio regular rate and regular rhythm GI soft to palpation and non-tender Back/Spine Back/Spine Narrative: Mild tenderness in the low lumbar midline region. Moderate tenderness in the right lumbar paraspinal region. No overlying skin change. Extremity normal to inspection Neuro oriented x3 Neuro Narrative: No focal neurologic deficits with good strength and sensation noted in the lower extremities bilaterally. Psych mental status grossly normal Skin no rashes or lesions noted MDM MDM MDM Narrative Medical decision making narrative: Patient has had no trauma to her back with a history of chronic back pain. I do not think she needs imaging studies at this time. Patient did drive herself to the hospital and does not have another ride home. I advised her that I cannot give her anything sedating at this time if she had to drive. Lidoderm patches placed on her back. I wrote a prescription for 3 tabs of oxycodone to send to the hospital pharmacy for meds to beds tonight. She will take a dose when she gets home. I did offer referral to spine surgery, however patient declines. She will follow with her primary care physician. Return instructions given. Discharge Plan Triage Chief Complaint: Back ED Provider: Carolina Melendez Dx/Rx/DC Orders Clinical Impression: Back pain Instructions: ED Back Pain (Acute or Chronic) Prescriptions: New oxycodone 5 mg tablet 5 mg PO Q8H PRN (Reason: pain) 1 Days Qty: 3 0RF No Action clonazepam 2 mg tablet 2 mg PO BID PRN PRN (Reason: Anxiety) Patient Comments: take 1 tablet by mouth twice a day baclofen 10 mg tablet 10 mg PO Q12H Qty: 30 0RF Rx Instructions: take with food can take 5-10 mg Kapspargo Sprinkle 25 mg capsule,sprinkle,ER 24hr 25 mg PO DAILY Patient Comments: TAKE 1 CAPSULE BY MOUTH EVERY DAY lamotrigine 200 mg tablet 200 mg PO BID aripiprazole [Abilify] 5 mg tablet 5 mg PO DAILY lamotrigine [Lamictal] 200 mg tablet 200 mg PO BID Rx Instructions: 200 in morning, 200 at night Primary Care Provider: Blaise Wetzel Referrals: Blaise Wetzel DO [Primary Care Provider] - 2 Days Print Language: Guamanian Disposition Disposition: Home, Self Care Discharge Date/Time: 04/30/24 22:03
[2024-04-30] MEDS: Lidocaine 5% Patch 1 PATCH TOPICAL (22:00)
== END 2024-04-30 22:03 | disposition home or self-care (01) ==
PROVIDERS: Emergency Provider Emergency Medicine; PCP Preventive Medicine Occupational Medicine; Visit Provider Emergency Medicine
DX: M54.50 Low back pain, unspecified (principal); G89.29 Other chronic pain; J45.909 Unspecified asthma, uncomplicated; F17.210 Nicotine dependence, cigarettes, uncomplicated
CPT/HCPCS: 99282

== ENCOUNTER 2024-05-12 07:36 | Emergency (ER) | payer MEDICAID, SELFPAY ==
[2024-05-12 07:38] VITALS: BP 124/94; PULSE 120; RESP 16; TEMP 36.2; O2SAT 96
[2024-05-12 07:39] VITALS: BP 124/94; PULSE 120; RESP 16; TEMP 36.2; O2SAT 96; BMI 24.6
--- NOTE | 2024-05-12 07:50 | CT_ITS ---
STUDY: CT BRAIN WITHOUT CONTRAST REASON FOR EXAM: Female, 39 years old. Head injury RADIATION DOSAGE (If Supplied By Facility): CTDIvol = ( 44.99 ) mGy, DLP = ( 779.24 ) mGycm TECHNIQUE: Transaxial CT imaging of the brain was performed without administration of intravenous contrast material. Individualized dose optimization techniques were used for this CT. COMPARISON: Head CT dated June 10, 2021 FINDINGS: No demonstrated skull fracture or pneumocephalus or subdural hemorrhage. No midline shift or extra-axial fluid collection is seen. No demonstrated intraventricular hemorrhage. Normal soft tissue structures. Normal calvarium. Normal size ventricles and extra-axial spaces for the patient''s age. Normal white matter tracts of the cerebral hemispheres. Normal basal ganglia and thalami. Normal brainstem. Normal cerebellum. There is no intracranial hemorrhage. There are no findings of an acute ischemic infarction. Normal visualized paranasal sinuses. CT/Brain/Head without Contrast IMPRESSION: Normal unenhanced CT scan of the brain. Electronically Signed: Reddy Sam MD at 8:40 EDT ,
--- NOTE | 2024-05-12 07:50 | CT_ITS ---
STUDY: CT FACIAL BONES WITHOUT CONTRAST REASON FOR EXAM: Female, 39 years old. Facial trauma RADIATION DOSAGE (If Supplied By Facility): CTDIvol = ( 29.38 ) mGy, DLP = ( 540.11 ) mGycm TECHNIQUE: Axial CT images of the facial bones were obtained with multiplanar reconstruction. The protocol utilizes one or more of the following dose reduction techniques: automated exposure control, adjustment of the mA and/or KV according to the patient size, and/or use of iterative reconstruction techniques. Individualized dose optimization techniques were used for this CT. COMPARISON: No relevant priors. FINDINGS: Soft Tissues: Normal: No focal or diffuse soft tissue swelling. Facial Bones: Normal: No fracture or destructive process. Mandible/TMJ: Normal. Orbital Contents: Normal globes, extraocular muscles, optic nerves, intraconal and extraconal spaces. Normal lamina papyracea. Visualized Paranasal Sinuses: Normal. Visualized Mastoid Air Cells: Normal. CT/Sinus/Facial Bone IMPRESSION: 1. Normal CT of the facial bones without contrast. Electronically Signed: Reddy Sam MD at 8:44 EDT ,
--- NOTE | 2024-05-12 07:52 | EX.ED.GENINJ ---
HPI History of Present Illness Chief Complaint: Laceration Narrative Narrative: 39-year-old female past medical history of irregular heartbeat presents with laceration to her upper lip area and nasal contusion status post fall. She states a few hours ago she was walking down the stairs, not wearing her glasses, and she tried to go over a baby gate, caught her foot, and fell forward. She believes her tetanus immunization is current, within the last 7 years. She states she finally got the bleeding to stop on her upper lip, and caught her elbow, but she is having nasal pain and headache. She does not take blood thinners. She denies other injury. She is here mainly for the laceration of the nasal contusion. [facility] Medical History Tachycardia Bipolar 1 disorder Concussion Headache History of ovarian cyst Arthritis Acute maxillary sinusitis, unspecified Bladder spasms Sinusitis Back pain Limb weakness Asthma Knee pain Chest pain Migraine Stomach ulcer Home Medications ?Medication ?Instructions ?Recorded ?Last Taken ?Type clonazepam 2 mg tablet 2 mg PO BID PRN PRN Anxiety 03/24/22 Unknown History metoprolol succinate 25 mg capsule 25 mg PO DAILY 11/27/22 Unknown History sprinkle, ext. release 24 hr (Kapspargo Sprinkle) lamotrigine 200 mg tablet 200 mg PO BID 01/14/24 Unknown History aripiprazole 5 mg tablet (Abilify) 5 mg PO DAILY 01/28/24 Unknown History lamotrigine 200 mg tablet 200 mg PO BID bipolar 01/28/24 Unknown History (Lamictal) baclofen 10 mg tablet 10 mg PO Q12H #30 TABLETS 04/06/24 Unknown Rx oxycodone 5 mg tablet 5 mg PO Q8H PRN pain 1 day #3 tabs 04/30/24 Unknown Rx Allergy/AdvReac Type Severity Reaction Status Date / Time adhesive Allergy Rash Verified 05/12/24 07:42 amoxicillin Allergy Swelling Verified 05/12/24 07:42 erythromycin base Allergy Hives Verified 05/12/24 07:42 (Erythromycin Base) estradiol Allergy Anaphylaxis Verified 05/12/24 07:42 Penicillins (PCN) Allergy Anaphylaxis Verified 05/12/24 07:42 acetaminophen (From Tylenol) AdvReac Vomiting Verified 05/12/24 07:42 ferrous sulfate AdvReac Constipatio Verified 05/12/24 07:42 n Family History Other Breast cancer Hypertension Surgical History History of back surgery History of placement of ear tubes History of nasal surgery Status post left breast lumpectomy Hx laparoscopic cholecystectomy History of ovarian cystectomy History of appendectomy History of adenoidectomy Social History Smoking Status: Current every day smoker tobacco type: cigarettes alcohol intake: never ROS ROS ED ROS Narrative Constitutional: No fever, no chills. HEENT: No sore throat. Minimal neck pain. No loss of vision. No rhinorrhea. Positive nasal contusion with pain. Laceration to upper lip area between nose and upper lip. Cardiovascular: No chest pain. No palpitations. No pedal edema. Respiratory: No cough, no shortness of breath. Abdominal: No abdominal pain. No nausea. No vomiting. Genitourinary: No dysuria. No hematuria. Musculoskeletal: No myalgias. No arthralgias. Neurologic: Mild headache, no dizziness. No lightheadedness. Skin: No rash. No change in color. Psychiatric: No depression. No anxiety. EXAM Physical Exam Narrative Exam Narrative: GCS 15, ABCs intact. HEENT examination shows more of an avulsion laceration to the area just above her upper lip, does appear to cross the vermilion border by 1 to 2 mm. There is no evidence of nasal septal hematoma. Mild tenderness to palpation and swelling to bridge of nose. PERRL, EOMI. Neck soft and supple without vertebral point tenderness or bony step-off. Full range of motion. Cardiovascular examination reveals mild tachycardia. Lungs clear to auscultation bilaterally. Abdomen soft nontender with normoactive bowel sounds. Able to raise arms above head without difficulty. Neurological examination nonfocal and nonlateralizing otherwise, and alert and oriented x 3. Musculoskeletal examination reveals full range of motion of right elbow. Const Vital Signs: 05/12/24 07:38 05/12/24 07:39 Temperature 97.1 F L 97.1 F L Temperature Source Temporal Temporal Pulse Rate 120 H 120 H Respiratory Rate 16 16 Blood Pressure 124/94 H 124/94 H Blood Pressure Mean 104 104 Pulse Ox 96 96 Oxygen Delivery Method Room Air Room Air PROC Procedures Lacerations Facial laceration: Length: 0.39 in Depth: Skin Shape: Irregular with areas of avulsion Laceration repair: Irrigated, Lidocaine, Local and Skin sutures Number of Sutures/Radha: 3 Suture Information: Ethilon, Simple and 6-0 Comment: Patient tolerated procedure well. She was told of the risk of infection and scarring, and possible need for scar revision by plastic surgery and acknowledges an understanding. MDM MDM MDM Narrative Medical decision making narrative: Concern is for intracranial hemorrhage versus facial contusion versus nasal fracture. Regarding her laceration, her wound will be cleansed, to see if there is the ability for wound closure with sutures, and I discussed with her that if it is more of an avulsion injury that it will need to heal by secondary intent. Her tetanus is current within 10 years and she declined update here. I will obtain imaging of both the brain and facial bones to rule out nasal fracture and intracranial hemorrhage. I do not feel she requires CT imaging of her neck. Upon closer inspection of the laceration, it is irregular with areas of skin avulsion more towards the right end where it appears more stellate. Additionally, the portion on the left may cross the vermilion border by a millimeter or 2. She was told of the risk of malalignment with suture closure and the need for scar revision and imperfect healing, and she acknowledges an understanding. See procedure note for details. I reviewed the radiology report of the CT of the facial bones and of the brain. At this point in time, she initially requested ibuprofen for analgesia, but I deferred until after CT scan. She was offered ibuprofen after the procedure and wound closure, but declined stating she did not need it any longer. She will be discharged to follow-up with plastic surgery in 5 days for suture removal or her primary care provider and she can follow-up with plastics as needed. Return instructions to the emergency department were reviewed. Disposition is discharged home in stable condition. Radiography Diagnostic Testing: Clinical Impression(s) from Imaging Studies Brain CT 05/12/24 07:50 IMPRESSION: Normal unenhanced CT scan of the brain. Electronically Signed: Reddy Sam MD at 8:40 EDT Reading Location ID and State: [facility] / [place] , Service support , Facial/Sinus 05/12/24 07:50 IMPRESSION: 1. Normal CT of the facial bones without contrast. Electronically Signed: Reddy Sam MD at 8:44 EDT Reading Location ID and State: [facility] / [place] , Service support , Discharge Plan Triage Chief Complaint: Laceration ED Provider: Bryan Bray Dx/Rx/DC Orders Clinical Impression: Fall, Facial laceration, Nasal contusion, Closed head injury Instructions: ED Head Injury (Adult), ED Laceration, All Closures, ED Nasal Contusion, ED Laceration Minimize Scars Prescriptions: No Action clonazepam 2 mg tablet 2 mg PO BID PRN PRN (Reason: Anxiety) Patient Comments: take 1 tablet by mouth twice a day baclofen 10 mg tablet 10 mg PO Q12H Qty: 30 0RF Rx Instructions: take with food can take 5-10 mg Kapspargo Sprinkle 25 mg capsule,sprinkle,ER 24hr 25 mg PO DAILY Patient Comments: TAKE 1 CAPSULE BY MOUTH EVERY DAY lamotrigine 200 mg tablet 200 mg PO BID aripiprazole [Abilify] 5 mg tablet 5 mg PO DAILY lamotrigine [Lamictal] 200 mg tablet 200 mg PO BID Rx Instructions: 200 in morning, 200 at night oxycodone 5 mg tablet 5 mg PO Q8H PRN (Reason: pain) 1 Days Qty: 3 0RF Primary Care Provider: Blaise Wetzel Referrals: Blaise Wetzel DO [Primary Care Provider] - 5 Days for suture removal Blaise Rachel MD [Med Staff - Active Staff] - 5 Days for suture removal Print Language: Cymraes Disposition Disposition: Home, Self Care
[2024-05-12] MEDS: Lidocaine 1% (20 ml mdv) 20 ML Vial INFILT (07:59)
== END 2024-05-12 08:54 | disposition home or self-care (01) ==
PROVIDERS: Emergency Provider Emergency Medicine; PCP Preventive Medicine Occupational Medicine; Visit Provider Emergency Medicine
DX: S01.511A Laceration without foreign body of lip, initial encounter (principal); W18.09XA Striking against other object with subsequent fall, initial encounter; F17.210 Nicotine dependence, cigarettes, uncomplicated; Z79.899 Other long term (current) drug therapy
CPT/HCPCS: 12011; 70450; 70486; 99283

== ENCOUNTER 2024-05-19 13:37 | Emergency (ER) | payer MEDICAID, SELFPAY ==
[2024-05-19 13:38] VITALS: BP 113/72; PULSE 88; RESP 16; TEMP 36.7; O2SAT 97; BMI 25.7
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
--- NOTE | 2024-05-19 14:57 | EDS_ITS ---
HPI <SHELBY Cantu - Last Filed: 05/19/24 15:08> History of Present Illness Chief Complaint: Anxiety Narrative Narrative: Patient is a 39-year-old female with history of tobacco use, bipolar, anxiety who presents to the emergency department for anxiety attack. Patient states that over the last several weeks he has been dealing with a lot of stress secondary to her mother, living situation, work, the child that is sick. Patient states today she was sitting and she felt that her breathing was getting faster, she felt palpitations, she states that she could not make her mind stop and she felt out of control. She then thought that she needed to come to the emergency department for reevaluation. She thinks that she needs a counselor because the meds are not handling her anxiety. She denies any chest pain, she denies any suicidal homicidal ideation. [facility] <SHELBY Cantu - Last Filed: 05/19/24 15:08> [facility] Medical History History of skin cancer History of pneumonia History of pancreatitis History of cardiac murmur History of heart disease History of anemia MISBAH (generalized anxiety disorder) Pancreatitis Tachycardia Bipolar 1 disorder Concussion Headache History of ovarian cyst Arthritis Acute maxillary sinusitis, unspecified Bladder spasms Sinusitis Back pain Limb weakness Asthma Knee pain Chest pain Migraine Stomach ulcer Home Medications ?Medication ?Instructions ?Recorded ?Last Taken ?Type clonazepam 2 mg tablet 2 mg PO BID PRN PRN Anxiety 03/24/22 Unknown History metoprolol succinate 25 mg capsule 25 mg PO DAILY 11/27/22 Unknown History sprinkle, ext. release 24 hr (Kapspargo Sprinkle) aripiprazole 5 mg tablet (Abilify) 5 mg PO DAILY 01/28/24 Unknown History lamotrigine 200 mg tablet 200 mg PO BID bipolar 01/28/24 Unknown History (Lamictal) buspirone 7.5 mg tablet 7.5 mg PO BID #60 tabs 05/14/24 Unknown Rx ibuprofen 600 mg tablet 600 mg PO Q6H PRN PRN pain #20 05/23/24 Unknown Rx TABLETS Allergy/AdvReac Type Severity Reaction Status Date / Time adhesive Allergy Rash Verified 05/23/24 12:56 amoxicillin Allergy Swelling Verified 05/23/24 12:56 erythromycin base Allergy Hives Verified 05/23/24 12:56 (Erythromycin Base) estradiol Allergy Anaphylaxis Verified 05/23/24 12:56 Penicillins (PCN) Allergy Anaphylaxis Verified 05/23/24 12:56 acetaminophen (From Tylenol) AdvReac Vomiting Verified 05/23/24 12:56 ferrous sulfate AdvReac Constipatio Verified 05/23/24 12:56 n Family History Mother Depression Bipolar 1 disorder Anxiety Other Alcoholism Breast cancer Cancer Hypertension Mental disorder Myocardial infarction Osteoporosis Suicide attempt Surgical History History of back surgery History of placement of ear tubes History of nasal surgery Status post left breast lumpectomy Hx laparoscopic cholecystectomy History of ovarian cystectomy History of appendectomy History of adenoidectomy Social History Smoking Status: Current every day smoker tobacco type: cigarettes alcohol intake: never substance use type: does not use what type of physical activity do you participate in: walking frequency: 1-2 times per week additional social history: denies vaping, denies marijuana use, denies edibles, denies aspirin use ibuprofen as needed ROS <SHELBY Cantu - Last Filed: 05/19/24 15:08> ROS ED ROS Narrative Constitutional: Negative for fever, chills, weight loss, weakness Eyes: Negative for vision loss, vision change, double vision ENT: Negative for any sore throat, ear pain, congestion Cardiovascular: Negative for any chest pain, tightness. Positive for palpitations Respiratory: Negative for any cough, sputum production, hemoptysis, dyspnea, dyspnea on exertion, orthopnea Gastrointestinal: Negative for any abdominal pain, nausea, vomiting, diarrhea, constipation, blood in stool, blood in vomit : Negative for any urinary frequency, dysuria, retention, blood in urine Muscle skeletal: Negative for any neck pain, back pain Neurological: Negative for any headache, syncope, dizziness Skin: Negative for any rashes, itching, abrasions, lacerations Psychiatric: Negative for any depression, suicidal ideation, homicidal ideation. Positive for anxiety, increased stress level Hematologic: Negative for any excessive bruising, easy bleeding EXAM <SHELBY Cantu - Last Filed: 05/19/24 15:08> Physical Exam Narrative Exam Narrative: Vital signs reviewed. Patient is alert and orient x 4, patient is in no obvious distress. Patient is acting appropriate. HEET: Head normocephalic atraumatic, TMs clear bilaterally. Posterior pharynx is clear, moist mucous membranes. Nares clear bilaterally. Neck: Supple with no lymphadenopathy or tenderness. No signs of meningismus. Cardiac: Regular rate and rhythm no murmurs gallops or rubs, equal peripheral pulses bilaterally. Respiratory: Lungs clear to auscultation bilaterally. No chest tenderness. Abdomen: Soft, nontender, nondistended. No abdominal bruit or pulsatile masses. No hepatosplenomegaly Extremities: No peripheral edema, no signs of gross trauma or deformity. Active full range of motion of all extremities. Neuro: Cranial nerves II through XII intact, no focal neurological deficits. Skin: Clean dry and intact with no rash, purpura, petechiae, vesicles or pustules. Backs/flank: No CVA tenderness, no midline spinal tenderness, no deformity. Psych: Normal mood and affect. No SI, HI or acute psychosis. Const Vital Signs: 05/19/24 13:38 Temperature 98.1 F Temperature Source Temporal Pulse Rate 88 Respiratory Rate 16 Blood Pressure 113/72 Blood Pressure Mean 85 Pulse Ox 97 Oxygen Delivery Method Room Air Positive well nourished and well developed General Appearance ED: well developed <Dr. Elzbieta Guidry, DO - Last Filed: 05/26/24 16:35> Physical Exam Const Vital Signs: 05/19/24 13:38 Temperature 98.1 F Temperature Source Temporal Pulse Rate 88 Respiratory Rate 16 Blood Pressure 113/72 Blood Pressure Mean 85 Pulse Ox 97 Oxygen Delivery Method Room Air MDM <SHELBY Cantu - Last Filed: 05/19/24 15:08> [facility] Treatment and Re-Evaluation :: Differential diagnosis includes however is not limited to: Anxiety attack, stress-induced anxiety, suicidal, homicidal ideation Patient appears to be in no obvious respiratory distress, patient's vital signs are stable. presenting to the emergency department for anxiety. On my evaluation, the patient was much more calm, patient is taking all of her medications which included Abilify, buspirone, clonidine. Patient is not suicidal, homicidal. At this time, do not believe the patient needs any other antianxiety agents. Patient was seen by the social work here given some outpatient follow-up for counseling. Patient is agreeable with the plan. At this time, I do feel patient safe for discharge. Patient will continue her daily medications, she will also follow-up with the counseling service. She instructed return for any signs and symptoms of worse anxiety, suicidal homicidal ideation she is happy the plan of care, stable for discharge. <Dr. Elzbieta Guidry, DO - Last Filed: 05/26/24 16:35> [facility] Treatment and Re-Evaluation :: Differential diagnosis includes however is not limited to: Anxiety attack, stress-induced anxiety, suicidal, homicidal ideation Patient appears to be in no obvious respiratory distress, patient's vital signs are stable. presenting to the emergency department for anxiety. On my evaluation, the patient was much more calm, patient is taking all of her medications which included Abilify, buspirone, clonidine. Patient is not suicidal, homicidal. At this time, do not believe the patient needs any other antianxiety agents. Patient was seen by the social work here given some outpatient follow-up for counseling. Patient is agreeable with the plan. At this time, I do feel patient safe for discharge. Patient will continue her daily medications, she will also follow-up with the counseling service. She instructed return for any signs and symptoms of worse anxiety, suicidal homicidal ideation she is happy the plan of care, stable for discharge. I have personally performed a face to face assessment of the patient and have reviewed the BUSHRA Note. I performed a substantive portion of the visit including all aspects of the following. Patient presents for worsening anxiety and feeling overwhelmed. Has environmental stressors. This will safe to go home. She is given outpatient resources and a prescription for hydroxyzine. Encour aged return to emergency room if she has progression or worsening of her symptoms. At this time I do not think she requires admission for emergent inpatient psychiatric evaluation. Other additions or changes: [None] Discharge Plan Triage Chief Complaint: Anxiety ED Midlevel Provider: Quinn Jacobson ED Provider: Elzbieta Guidry Dx/Rx/DC Orders Clinical Impression: Anxiety Instructions: Anxiety Disorders Tx, ED Anxiety Reaction Prescriptions: No Action clonazepam 2 mg tablet 2 mg PO BID PRN PRN (Reason: Anxiety) Patient Comments: take 1 tablet by mouth twice a day buspirone 7.5 mg tablet 7.5 mg PO BID Qty: 60 1RF Kapspargo Sprinkle 25 mg capsule,sprinkle,ER 24hr 25 mg PO DAILY Patient Comments: TAKE 1 CAPSULE BY MOUTH EVERY DAY ibuprofen 600 mg tablet 600 mg PO Q6H PRN PRN (Reason: pain) Qty: 20 0RF aripiprazole [Abilify] 5 mg tablet 5 mg PO DAILY lamotrigine [Lamictal] 200 mg tablet 200 mg PO BID Rx Instructions: 200 in morning, 200 at night Primary Care Provider: Blaise Wetzel Referrals: Blaise Wetzel DO [Primary Care Provider] - Activity Restrictions/Additional Instructions: You were seen by the group social worker today in the ER. You were given some counseling materials. It is important to perform proper lifestyle, medication as well as counseling services to treat your anxiety. Please return for any worsening symptoms. Print Language: Cambodian Disposition Disposition: Home, Self Care Discharge Date/Time: 05/19/24 15:25
== END 2024-05-19 15:25 | disposition home or self-care (01) ==
PROVIDERS: Emergency Provider Emergency Medicine; PCP Preventive Medicine Occupational Medicine; Visit Provider Emergency Medicine
DX: F41.9 Anxiety disorder, unspecified (principal); F31.9 Bipolar disorder, unspecified; J45.909 Unspecified asthma, uncomplicated; F17.210 Nicotine dependence, cigarettes, uncomplicated; Z79.899 Other long term (current) drug therapy
CPT/HCPCS: 99282

== ENCOUNTER 2024-05-23 12:55 | Emergency (ER) | payer MEDICAID, SELFPAY ==
[2024-05-23 12:56] VITALS: BP 135/87; PULSE 101; RESP 14; TEMP 36.6; O2SAT 97; BMI 26.0
[2024-05-23] MEDS: Ibuprofen 600 MG Tablet PO (13:10)
--- NOTE | 2024-05-23 13:10 | RAD_ITS ---
STUDY: X-RAY - RIGHT KNEE REASON FOR EXAM: Female, 39 years old. Injury/Pain TECHNIQUE: 4 views of the right knee. COMPARISON: Right knee radiographs dated 01/28/2024. FINDINGS: Normal visualized distal femur. Normal visualized proximal tibia and fibula. Normal proximal tibiofibular articulation. There is no demonstrated fracture. Normal medial femorotibial compartment. Normal lateral femorotibial compartment. Normal patellofemoral articulation. The soft tissue structures are unremarkable. RAD/Knee 4 or More Views IMPRESSION: Normal x-ray examination of the right knee. Electronically Signed: Neptali Qureshi MD at 13:34 EDT ,
--- NOTE | 2024-05-23 13:15 | EDS_ITS ---
HPI History of Present Illness Chief Complaint: Lower Extremity Injury Detail of Chief Complaint: Right knee pain x 2 weeks Informant: patient Occured/Mechanism Comment: Patient bent felt a pop and has had pain since Onset/Context/Timing Onset: Weeks (Approximately 2 weeks) Context: Sudden Onset Timing: Continuous and Waxes and wanes Quality of Pain: - (Pain) Location: Anterior right knee Current Severity: Mild Maximum Severity: Severe Worsened by: Movement Relieved by: Nothing Associated Symptoms Associated Symptoms: Negative for Parasthesia, Weakness or Loss of Funtion Narrative Narrative: Patient is a 39-year-old woman. She complains of pain with movement. She denies prior injury. She denies history of gout or pseudogout. Review of prior record indicates she has had problems with her left knee. She is able to ambulate. Recent Illness/Hospitalization: No [facility] Medical History History of skin cancer History of pneumonia History of pancreatitis History of cardiac murmur History of heart disease History of anemia MISBAH (generalized anxiety disorder) Pancreatitis Tachycardia Bipolar 1 disorder Concussion Headache History of ovarian cyst Arthritis Acute maxillary sinusitis, unspecified Bladder spasms Sinusitis Back pain Limb weakness Asthma Knee pain Chest pain Migraine Stomach ulcer Home Medications ?Medication ?Instructions ?Recorded ?Last Taken ?Type clonazepam 2 mg tablet 2 mg PO BID PRN PRN Anxiety 03/24/22 Unknown History metoprolol succinate 25 mg capsule 25 mg PO DAILY 11/27/22 Unknown History sprinkle, ext. release 24 hr (Kapspargo Sprinkle) aripiprazole 5 mg tablet (Abilify) 5 mg PO DAILY 01/28/24 Unknown History lamotrigine 200 mg tablet 200 mg PO BID bipolar 01/28/24 Unknown History (Lamictal) buspirone 7.5 mg tablet 7.5 mg PO BID #60 tabs 05/14/24 Unknown Rx ibuprofen 600 mg tablet 600 mg PO Q6H PRN PRN pain #20 05/23/24 Unknown Rx TABLETS Allergy/AdvReac Type Severity Reaction Status Date / Time adhesive Allergy Rash Verified 05/23/24 12:56 amoxicillin Allergy Swelling Verified 05/23/24 12:56 erythromycin base Allergy Hives Verified 05/23/24 12:56 (Erythromycin Base) estradiol Allergy Anaphylaxis Verified 05/23/24 12:56 Penicillins (PCN) Allergy Anaphylaxis Verified 05/23/24 12:56 acetaminophen (From Tylenol) AdvReac Vomiting Verified 05/23/24 12:56 ferrous sulfate AdvReac Constipatio Verified 05/23/24 12:56 n Family History Mother Depression Bipolar 1 disorder Anxiety Other Alcoholism Breast cancer Cancer Hypertension Mental disorder Myocardial infarction Osteoporosis Suicide attempt Surgical History History of back surgery History of placement of ear tubes History of nasal surgery Status post left breast lumpectomy Hx laparoscopic cholecystectomy History of ovarian cystectomy History of appendectomy History of adenoidectomy Social History Smoking Status: Current every day smoker tobacco type: cigarettes alcohol intake: never substance use type: does not use what type of physical activity do you participate in: walking frequency: 1-2 times per week additional social history: denies vaping, denies marijuana use, denies edibles, denies aspirin use ibuprofen as needed ROS ROS ED Constitutional Constitutional ED: Denies chills, fever(s), subjective or sweats Gastrointestinal Gastrointestinal: Denies nausea or vomiting Musculoskeletal Musculoskeletal: Denies arthralgias, back pain, myalgias or neck pain Integumentary Denies Abrasions or rash Neurologic Neurologic: Denies paresthesias or weakness EXAM Physical Exam Const Vital Signs: 05/23/24 12:56 Temperature 98 F Temperature Source Temporal Pulse Rate 101 H Respiratory Rate 14 Blood Pressure 135/87 H Blood Pressure Mean 103 Pulse Ox 97 Oxygen Delivery Method Room Air Positive well nourished and well developed General Appearance ED: well developed and NAD HEENT normocephalic and atraumatic Resp normal respiratory effort Cardio regular rate and regular rhythm Extremity normal to inspection and full ROM Extremity Narrative: Patient complains of pain with flexion past 90 degrees. Is able to extend to 180 degrees and hold against gravity. There is no swelling. The patella is not ballotable. There is no effusion. There is no joint line tenderness. Varus valgus tress testing does elicit laxity; however, it is no worse than what is noted on the left knee that is asymptomatic. Jeffry's test is negative. Modified Shashi's test was negative. There is no pain, fullness or mass in the popliteal fossa. There is no pulsatile mass in the popliteal fossa. DP pulses 2+. Neuro oriented x3 and CN's II-XII intact bilaterally Sensorium / Orientation: alert Plantar Reflex: Downgoing: bilateral Psych mental status grossly normal Skin no wounds MDM MDM MDM Narrative Medical decision making narrative: Patient states she took 600 mg ibuprofen yesterday. She had improvement patient presents because of pain for 2 weeks. Of note patient does have a care plan. Patient does have history of frequent ER visits. She is aware that she has to have verifiable pain to receive opiate analgesics. Differential diagnosis is possible meniscus injury, arthritis, with no effusion no warmth doubt crystal induced or pyogenic arthritis. Radiography Chest X-Ray - ED: Read by ED Physician (4 view x-ray of the right knee was independently reviewed interpreted by me at 1331. There is no fracture, subluxation dislocation. There is no effusion. There is no arthritic changes noted.) Treatment and Re-Evaluation Narrative: Patient was observed walking from restroom to her room with a limp. Plan is anti-inflammatories and follow-up with her doctor if no improvement in 3 to 5 days. Discharge Plan Triage Chief Complaint: Lower Extremity Injury ED Provider: Mickey Godfrey Dx/Rx/DC Orders Clinical Impression: Acute pain of right knee, MISBAH (generalized anxiety disorder) Instructions: ED Knee Pain of Uncertain Cause Prescriptions: New ibuprofen 600 mg tablet 600 mg PO Q6H PRN PRN (Reason: pain) Qty: 20 0RF No Action clonazepam 2 mg tablet 2 mg PO BID PRN PRN (Reason: Anxiety) Patient Comments: take 1 tablet by mouth twice a day buspirone 7.5 mg tablet 7.5 mg PO BID Qty: 60 1RF Kapspargo Sprinkle 25 mg capsule,sprinkle,ER 24hr 25 mg PO DAILY Patient Comments: TAKE 1 CAPSULE BY MOUTH EVERY DAY aripiprazole [Abilify] 5 mg tablet 5 mg PO DAILY lamotrigine [Lamictal] 200 mg tablet 200 mg PO BID Rx Instructions: 200 in morning, 200 at night Primary Care Provider: Blaise Wetzel Referrals: Blaise Wetzel DO [Primary Care Provider] - 3-5 Days if not improving Print Language: Yoruba Disposition Disposition: Home, Self Care
== END 2024-05-23 13:52 | disposition home or self-care (01) ==
LOC: ED 13:37
PROVIDERS: Emergency Provider Emergency Medicine; PCP Preventive Medicine Occupational Medicine; Visit Provider Emergency Medicine
DX: M25.561 Pain in right knee (principal); F41.1 Generalized anxiety disorder; F17.210 Nicotine dependence, cigarettes, uncomplicated
CPT/HCPCS: 73564; 99282

== ENCOUNTER 2024-08-04 18:36 | Emergency (ER) | payer MEDICAID, SELFPAY ==
[2024-08-04 18:37] VITALS: BP 95/65; PULSE 106; RESP 18; TEMP 35.6; O2SAT 100; BMI 25.7
--- NOTE | 2024-08-04 18:46 | ED.VIS.LOWEX ---
HPI History of Present Illness HPI Narrative: Patient presents with right knee injury that occurred today. Patient states she fell while chasing her dog. Patient states she landed on both knees but her right knee is worse. Patient describes her pain as burning. Patient states nothing makes it worse and nothing makes it better. Patient denies any paresthesias or weakness. Patient states her last tetanus was within the last 10 years. Patient denies any head injury or loss of consciousness. Patient denies any other injuries. Chief Complaint: Lower Extremity Injury Informant: patient Occured/Mechanism Mechanism/Context: Yes fall Onset/Context/Timing Onset: Today Context: Sudden Onset Timing: Continuous Quality of Pain: Burning Location: Right knee Worsened by: Nothing Relieved by: Nothing Associated Symptoms Associated Symptoms: Negative for Parasthesia, Weakness or Loss of Funtion [facility] Medical History History of skin cancer History of pneumonia History of pancreatitis History of cardiac murmur History of heart disease History of anemia MISBAH (generalized anxiety disorder) Pancreatitis Tachycardia Bipolar 1 disorder Concussion Headache History of ovarian cyst Arthritis Acute maxillary sinusitis, unspecified Bladder spasms Sinusitis Back pain Limb weakness Asthma Knee pain Chest pain Migraine Stomach ulcer Home Medications ?Medication ?Instructions ?Recorded ?Last Taken ?Type metoprolol succinate 25 mg capsule 25 mg PO DAILY 11/27/22 Unknown History sprinkle, ext. release 24 hr (Kapspargo Sprinkle) ibuprofen 600 mg tablet 600 mg PO Q6H PRN PRN pain #20 05/23/24 Unknown Rx TABLETS aripiprazole 5 mg tablet (Abilify) 5 mg PO DAILY #90 tabs 06/25/24 Unknown Rx buspirone 10 mg tablet 10 mg PO BID #60 tabs 06/25/24 Unknown Rx lamotrigine 200 mg tablet 200 mg PO BID bipolar #180 tabs 06/25/24 Unknown Rx (Lamictal) clonazepam 2 mg tablet 2 mg PO BID PRN PRN Anxiety #60 07/22/24 Unknown Rx tabs Allergy/AdvReac Type Severity Reaction Status Date / Time adhesive Allergy Rash Verified 08/04/24 18:37 amoxicillin Allergy Swelling Verified 08/04/24 18:37 erythromycin base Allergy Hives Verified 08/04/24 18:37 (Erythromycin Base) estradiol Allergy Anaphylaxis Verified 08/04/24 18:37 Penicillins (PCN) Allergy Anaphylaxis Verified 08/04/24 18:37 acetaminophen (From Tylenol) AdvReac Vomiting Verified 08/04/24 18:37 ferrous sulfate AdvReac Constipatio Verified 08/04/24 18:37 n Family History Mother Depression Bipolar 1 disorder Anxiety Other Alcoholism Breast cancer Cancer Hypertension Mental disorder Myocardial infarction Osteoporosis Suicide attempt Surgical History History of back surgery History of placement of ear tubes History of nasal surgery Status post left breast lumpectomy Hx laparoscopic cholecystectomy History of ovarian cystectomy History of appendectomy History of adenoidectomy Social History Smoking Status: Current every day smoker tobacco type: cigarettes alcohol intake: never substance use type: does not use what type of physical activity do you participate in: walking frequency: 1-2 times per week additional social history: denies vaping, denies marijuana use, denies edibles, denies aspirin use ibuprofen as needed ROS ROS ED Constitutional Constitutional ED: Denies chills or fever(s) Eyes Eyes: Denies blurry vision or change in vision ENT ENT ED: Denies rhinorrhea or sore throat Cardiovascular Cardiovascular: Denies chest pain or palpitations Respiratory/Chest Respiratory/Chest: Denies cough or dyspnea Gastrointestinal Gastrointestinal: Denies nausea or vomiting Genitourinary Genitourinary ED: Denies dysuria or hematuria Musculoskeletal Musculoskeletal: Denies back pain or neck pain Integumentary Denies abscess or rash Neurologic Neurologic: Denies headache(s) or weakness Allergic/Immunologic Allergic/Immunologic ED: Denies mouth swelling or urticaria EXAM Physical Exam Const Vital Signs: 08/04/24 18:37 Temperature 96.1 F L Temperature Source Temporal Pulse Rate 106 H Respiratory Rate 18 Blood Pressure 95/65 Blood Pressure Mean 75 Pulse Ox 100 Oxygen Delivery Method Room Air Positive well nourished and well developed General Appearance ED: well developed and NAD HEENT Reports moist mucous membranes atraumatic; Negative for tenderness Neck full ROM and supple Extremity Extremity Narrative: There is diffuse tenderness over the right knee. There is some mild edema. There is no ecchymosis. There is no effusion. There are superficial abrasions over the anterior aspect of the right knee. Range of motion was slightly limited in all motions of the right knee secondary to pain. Pedal pulses are equal bilaterally. Sensation was intact to light touch bilaterally in the lower extremities. Capillary refills less than 2 seconds in all digits. Strength is 5/5 bilaterally in the lower extremities. Neuro oriented x3, CN's II-XII intact bilaterally, moves all extremities and no sensory deficits noted Sensorium / Orientation: alert Motor Exam: strength 5/5 throughout Psych mental status grossly normal Skin Trauma: abrasion MDM MDM MDM Narrative Medical decision making narrative: Differential diagnose includes sprain, fracture, and contusion. X-rays of the right knee will be obtained to assess for fracture and dislocation. Radiography Diagnostic Testing: Clinical Impression(s) from Imaging Studies Knee X-Ray 08/04/24 18:55 IMPRESSION: Negative right knee x-rays. Electronically Signed: Kong Chester MD at 19:23 EDT Reading Location ID and State: [facility] / [place] , Service support , X-rays of the right knee were obtained. There are 4 views. On my independent interpretation, there is no acute fracture or dislocation noted. There is no joint effusion. Radiologist also interpreted the x-rays and agrees. Treatment and Re-Evaluation Narrative: Patient was advised of her findings. Patient was instructed to ice and elevate the right knee. Patient was instructed to take Tylenol or ibuprofen as needed for pain. Patient was instructed to follow-up with her primary care physician. Patient was advised there could be a tear to her ligaments or cartilage which does not show up on x-ray. The patient understood and was agreeable with the plan. All questions were answered. Discharge Plan Triage Chief Complaint: Lower Extremity Injury ED Provider: Jose Carlos Kuhn Dx/Rx/DC Orders Clinical Impression: Contusion of right knee, initial encounter, Tobacco user, Abrasion, right knee, initial encounter Instructions: ED Abrasion, ED Soft Tissue Contusion Prescriptions: No Action buspirone 10 mg tablet 10 mg PO BID Qty: 60 1RF lamotrigine [Lamictal] 200 mg tablet 200 mg PO BID Qty: 180 1RF Rx Instructions: 200 in morning, 200 at night aripiprazole [Abilify] 5 mg tablet 5 mg PO DAILY Qty: 90 1RF Kapspargo Sprinkle 25 mg capsule,sprinkle,ER 24hr 25 mg PO DAILY Patient Comments: TAKE 1 CAPSULE BY MOUTH EVERY DAY ibuprofen 600 mg tablet 600 mg PO Q6H PRN PRN (Reason: pain) Qty: 20 0RF clonazepam 2 mg tablet 2 mg PO BID PRN PRN (Reason: Anxiety) Qty: 60 0RF Primary Care Provider: Blaise Wetzel Referrals: Blaise Wetzel DO [Primary Care Provider] - 5-7 Days Print Language: Scottish Disposition Disposition: Home, Self Care
--- NOTE | 2024-08-04 18:55 | RAD_ITS ---
EXAM: XR RIGHT KNEE COMPLETE, 4 OR MORE VIEWS CLINICAL INDICATION: Injury/Pain TECHNIQUE: Four or more views of the right knee. COMPARISON: No relevant prior studies available. FINDINGS: BONES/JOINTS: Unremarkable. No acute fracture. No subluxation. Normal alignment. Preservation of the joint space. No sclerotic or destructive changes observed. SOFT TISSUES: Unremarkable. No soft tissue swelling or gas. No radiopaque foreign body. RAD/Knee 4 or More Views IMPRESSION: Negative right knee x-rays. Electronically Signed: Kong Chester MD at 19:23 EDT ,
--- OUTSIDE RECORDS SUMMARY | 2024-08-04 19:09 | XMS RPT_ITS | CCD ---
Author Organization [facility] Care Team Providers Care [employer] Name Role Phone ELIER RASHEED GRIFFIN Primary Care Physician ( [phone] Luis Fernando PT, [place] Unavailable Unavailable Flori Hernandez Primary Care Provider [phone] DOSMARIELY HUERTAS MD Admitting Unavailmariely e MARIELY CAZARES MD Attending UnavailMARIELY Mcguire MD Primary Care Unavailmariely DELGADO, DR DORIAN White Attending Unavailable DANNY, DR DORIAN White Primary Care Unavailable DR DORIAN DELGADO Admitting Unavailable FLORI HERNANDEZ DO Primary Care Physician [phone] FLORI HERNANDEZ DO Primary Care Physician JULIANNA DE LA TORRE Attending Unavailable OLGA, PHYSICIAN Primary Care Unavailable Flori Hernandez DO Primary Care Provider [phone] FLORI HERNANDEZ Primary Care Unavailable FLORI HERNANDEZ Primary Care Unavailable FLORI HERNANDEZ Primary Care Unavailable FLORI HERNANDEZ Primary Care Unavailable FLORI HERNANDEZ Primary Care Unavailable ERIBERTO CHRISTINE MD Attending Unavail able FLORI HERNANDEZ DO Primary Care Unavailable FLORI HERNANDEZ DO Primary Care Unavailable KRISTINE ARRIAGA Attending Unavailable ERIBERTO CHRISTINE MD Attending Unavail able FLORI HERNANDEZ DO Primary Care Unavailable FLORI HERNANDEZ DO Primary Care Unavailable DELFINA ZUNIGA, DR JANELLE Rojas Attending Unavailmariely ELLSWORTH MD, DR ELLIS Attending UnavailFLORI Hunter DO Primary Care Unavailable ERIBERTO CHRISTINE MD Attending Unavail able FLORI HERNANDEZ DO Primary Care Unavailable FLORI HERNANDEZ DO Primary Care Unavailable JENISE HARDIN DO Attending Unavailable LAURO LEON, DR CARMONA Attending Unavailab le DAVID DO, FLORI Primary Care Unavailable [facility], FLORI [facility] Attending Unavailable ERIBERTO CHRISTINE MD Attending Unavail able DAVID ZUNIGA, FLORI Primary Care Unavailable MAKENNASUKHWINDER DO, JENISE Attending Unavailable DAVID ZUNIGA, FLORI Primary Care Unavailable DVAID , FLORI Primary Care Unavailable AMY LEON, DR DONTRELL Skinner Attending Unavailabl e DAVID ZUNIGA, FLORI Primary [facility] Un[facility] Attending Unavailable [facility], FLORI Primary Care Unavailable JING ZUNIGA, DR GILMER Baker Attending Unavailable Allergies Allergy Classification Reported Allergen(s) Allergy Type Date of Onset Reaction(s) Facility Acetaminophen (2 sources) Acetaminophen; Translations: [acetaminophen] Drug Allergy Nausea [facility] Acetaminophen / HYDROcodone (2 sources) Acetaminophen / HYDROcodone; Translations: [acetaminophen-hy drocodone] Drug Allergy Nausea [facility] Adhesive Tape (2 sources) Adhesive Tape Substance Allergy [facility] Cephalosporins (antibiotic) (4 sources) Cefixime; Translations: [cefixime] Drug Allergy Asthenia (finding), Blushing, function (observable entity), Nausea (finding) [facility] Corticosteroids (2 sources) predniSONE; Translations: [prednisone] Drug Allergy 02-16-20 Sweating (finding) [facility] Erythromycin / sulfiSOXAZOLE (2 sources) Erythromycin / sulfiSOXAZOLE; Translations: [erythromycin-sul fisoxazole] Drug Allergy Asthenia (finding), Blushing, function (observable entity), Nausea (finding) [facility] Macrolides (antibiotic) (2 sources) Erythromycin; Translations: [erythromycin] Drug Allergy Diarrhea [facility] Opioid Agonists (2 sources) traMADol; Translations: [tramadol] Drug Allergy Hives [facility] Penicillins (antibiotic) (4 sources) Amoxicillin; Translations: [amoxicillin] Drug Allergy Itching of skin (finding) [facility] (20 sources) Acetaminophen; Translations: [acetaminophen] Drug Allergy 04-15-20 08 Vomiting [facility] (20 sources) Acetaminophen / HYDROcodone; Translations: [acetaminophen-hy drocodone] Drug Allergy Nausea [facility] (20 sources) Adhesive Tape Allergy to substance [facility] (20 sources) Cefaclor; Translations: [cefaclor] Drug Allergy Hives [facility] (20 sources) Cefixime; Translations: [cefixime] Drug Allergy Asthenia (finding), Blushing, function (observable entity), Nausea (finding) [facility] (20 sources) Erythromycin; Translations: [erythromycin] Drug Allergy Diarrhea [facility] (20 sources) Erythromycin / sulfiSOXAZOLE; Translations: [erythromycin-sul fisoxazole] Drug Allergy Asthenia (finding), Blushing, function (observable entity), Nausea (finding) [facility] (20 sources) Penicillin; Translations: [penicillins] Drug Allergy Itching of skin (finding) [facility] (20 sources) predniSONE; Translations: [prednisone] Drug Allergy 02-16-20 21 Sweating (finding), Other: See Comments [facility] (20 sources) traMADol; Translations: [tramadol] Drug Allergy [facility] (8 sources) Clindamycin; Translations: [CLINDAMYCIN] Drug Allergy 03-15-20 21 Itching [facility] Work Phone: (9 sources) HYDROmorphone; Translations: [HYDROMORPHONE (BULK)] Drug Allergy 04-15-20 08 Other: See Comments [facility] (9 sources) Penicillins; Translations: [PENICILLINS] Propensity to adverse reactions 04-15-20 08 Hives [facility] Work Phone: (1 source) Acetaminophen Drug Allergy [facility] (1 source) Penicillin Drug Allergy [facility] (8 sources) Amoxicillin; Translations: [amoxicillin] Drug Allergy [facility] Medications Current Medications Medication Drug Class(es) Dates Sig (Normalized) Sig (Original) acetaminophen 325 mg / butalbital 50 mg / caffeine 40 mg oral tablet (2 sources) Barbiturate, Central Nervous System Stimulant, Methylxanthine Start: 08-01-2024 take 1 tablet by mouth every four hours as needed, then take 1 tablet by mouth every four hours as needed, then take 6 tablets by mouth once daily as needed APAP/butalbital/ caffeine 325-50-40 mg oral tablet (Fioricet) Dose = 1 tab(s), Oral, q4h, TAKE 1 TABLET BY MOUTH EVERY 4 HOURS NEEDED. Do not take more than 6 tablets a day, # 30 tab(s), 0 Refill(s), Pharmacy: [facility], 168, cm, 07/23/24 7:52:00 EDT, Height, kg, 07/23/24 7:52:00 EDT, Dosing Weight Start Date: 08/01/24 Status: Ordered Start: 02-14-2024 End: 02-28-2024 take 1 tablet by mouth every four hours as needed for headache, then take 6 tablets by mouth once daily as needed for headache APAP/butalbital/caffeine 325-50-40 mg oral tablet (Fioricet) Dose = 1 tab(s), Oral, q4h, PRN as needed for headache, not to exceed 6 tablets/day, X 7 day(s), # 40 tab(s), 1 Refill(s), Pharmacy: [facility], 167, cm, 02/14/24 16:41:00 EDT, Height, kg, 02/14/24 16:41:00 EDT, Dosing Weight Start Date: 02/14/24 Stop Date: 02/28/24 Status: Ordered [id number] 200 actuat albuterol 0.09 mg/actuat metered dose inhaler (11 sources) beta2-Adrenergic Agonist Start: 12-01-2023 take 1 puff(s) by inhalation every six hours ProAir HFA MDI (90 mcg/inh) inhalation aerosol 1 puff(s), Inhalation, q6h, # 1 EA, 0 Refill(s), Pharmacy: [facility], URTI - Viral upper respiratory tract infection, 167.6, cm, 12/01/23 12:52:00 EST, Height, kg, 12/01/23 12:52:00 EST, Dosing Weight Start Date: 12/01/23 Status: Ordered Start: 03-08-2023 take 1 puff(s) by in halation every six hours ProAir HFA MDI (90 mcg/inh) inhalation aerosol 1 puff(s), Inhalation, q6h, # 1 EA, 0 Refill(s), URTI - Viral upper respiratory tract infection Start Date: 03/08/23 Status: Ordered albuterol MDI (90 mcg/inh) CFC free inhalation aerosol (9 sources) Start: 02-08-2024 take 1-2 puff(s) by inhalation every four hours as needed for wheezing albuterol MDI (90 mcg/inh) CFC free inhalation aerosol See Instructions, PRN Shortness of breath or wheezing, 1 to 2 puff(s) Inhalation q4h, # 18 gram(s), 0 Refill(s), Pharmacy: [facility], Acute bronchitis, 168.4, cm, 02/08/24 15:25:00 EDT, Height, kg, 02/08/24 15:25:00 EDT, Dosing Weight Start Date: 02/08/24 Status: Ordered Start: 05-22-2022 take 2 puff(s) by in halation every four hours albuterol MDI (90 mcg/inh) CFC free inhalation aerosol 2 puff(s), Inhalation, q4h, # 1 EA, 0 Refill(s) Start Date: 05/22/22 Status: Ordered ARIPiprazole 5 mg oral tablet (17 sources) Atypical Antipsychotic Start: 06-19-2023 ARIPipr azole 5 mg oral tablet Dose : 5 mg = 1 tab(s), Oral, qDay, # 90 tab(s), 0 Refill(s) Start Date: 03/12/24 Status: Ordered Start: 06-20-2022 End: 12-17-2022 Abilify 2 mg oral tablet Dos e : 1 mg = 0.5 tab(s), Oral, qDay, # 15 tab(s), 5 Refill(s), [id number], 167.6, cm, 06/20/22 8:05:00 EDT, Height Start Date: 06/20/22 Stop Date: 12/17/22 Status: Ordered Start: 04-04-2022 End: 05-04-2022 Abilify 2 mg oral tablet Dos e : 2 mg = 1 tab(s), Oral, qDay, # 30 tab(s), 0 Refill(s), [facility]acy: [id number], 168, cm, 04/04/22 10:06:00 EDT, Height Start Date: 04/04/22 Stop Date: 05/04/22 Status: Ordered baclofen 10 mg oral tablet (20 sources) gamma-Aminobutyric Acid-ergic Agonist Start: 05-21-2024 End: 06-20-2024 baclofen 10 mg oral tablet Dose : 10 mg = 1 tab(s), Oral, TID, PRN Spasm, # 45 tab(s), 1 Refill(s), Pharmacy: [facility], 171.5, cm, 05/20/24 10:52:00 EDT, Height, kg, 05/20/24 10:52:00 EDT, Dosing Weight Start Date: 05/21/24 Stop Date: 06/20/24 Status: Ordered Start: 04-13-2024 take 1 tablet by arabella th three times daily as needed for muscle spasms baclofen 10 mg tablet Indications: Cervical paraspinal muscle spasm Take 1 tablet by mouth three times a day as needed (muscle spasms). May cause drowsiness. 20 tablet 0 04/13/2024 Active Start: 01-16-2024 baclofen 10 mg oral tablet Dose : 5 mg = 0.5 tab(s), Oral, TID, PRN Spasm, # 30 tab(s), 1 Refill(s), Pharmacy: [facility], 167.6, cm, 01/04/24 8:00:00 EDT, Height, kg, 01/04/24 8:00:00 EDT, Dosing Weight Start Date: 01/16/24 Status: Ordered Start: 01-16-2024 take 1 tablet by arabella th twice daily baclofen 5 mg tablet baclofen 5 mg tablet, TAKE 1 TABLET BY MOUTH TWICE DAILY Start Date: 01/16/24 Status: Ordered End: 04-13-2024 BACLOFEN ORAL Take by mouth. 04/13/2024 Discontinued End: 04-13-2024 BACLOFEN ORAL Take by mouth. 0 04/13/2024 Discontinued BACLOFEN ORAL Ta ke by mouth. 0 Active Comment on above: Take by mouth. busPIRone hydrochloride 10 m g oral tablet (4 sources) Start: 07-23-2024 busPIRone 10 mg oral tablet Dose : 10 mg = 1 tab(s), Oral, BID, # 180 tab(s), 0 Refill(s), other reason (Rx) Start Date: 07/23/24 Status: Ordered Start: 05-14-2024 busPIRone 7.5 mg oral tablet Dose : 7.5 mg = 1 tab(s), Oral, TID, # 270 tab(s), 0 Refill(s) Start Date: 05/17/24 Status: Ordered celecoxib 100 mg oral capsule (1 source) Nonsteroidal Anti-inflammatory Drug Start: 06-20-2022 End: 08-19-2022 CeleBREX 100 mg oral capsule Dose : 100 mg = 1 cap(s), Oral, BID, # 60 cap(s), 1 Refill(s), [facility]acy: [facility] #[id number], 167.6, cm, 06/20/22 8:05:00 EDT, Height Start Date: 06/20/22 Stop Date: 08/19/22 Status: Ordered cyclobenzaprine hydrochloride 10 mg oral tablet (2 sources) Muscle Relaxant Start: 11-03-2022 End: 11-13-2022 take 1 tablet by mouth twice daily Flexeril use cyclobenzaprine Dose : 10 mg =, Oral, BID, X 10 day(s), # 20 tab(s), 0 Refill(s), 11/13/22 11:44:00 EST, Neck pain Start Date: 11/03/22 Stop Date: 11/13/22 Status: Ordered Start: 01-09-2022 End: 01-16-2022 cyclobenzaprine 10 mg oral t ablet Dose : 10 mg = 1 tab(s), Oral, TID, X 7 day(s), # 21 tab(s), 0 Refill(s), 01/16/22 9:58:00 EDT, Back pain Start Date: 01/09/22 Stop Date: 01/16/22 Status: Ordered diazePAM 5 mg oral tablet (1 source) Benzodiazepine Start: 12-19-2023 End: 12-22-2023 Valium 5 mg oral tablet Dose : 5 mg = 1 tab(s), PO, TID, X 3 day(s), # 9 tab(s), 0 Refill(s), 12/22/23 4:09:00 PM EDT, Anxiety, 71 Start Date: 12/19/23 Stop Date: 12/22/23 Status: Ordered doxycycline hyclate 100 mg oral capsule (1 source) Tetracycline-class Drug Start: 03-07-2023 End: 03-17-2023 doxycycline hyclate 100 mg oral capsule Dose : 100 mg = 1 cap(s), Oral, BID, X 10 day(s), # 20 cap(s), 0 Refill(s), 03/17/23 13:22:00 EDT, [facility]: [id number], Acute sinusitis, 170, cm, 03/07/23 13:02:00 EDT, Height, 71.6 Start Date: 03/07/23 Stop Date: 03/17/23 Status: Ordered etodolac 400 mg oral tablet (1 source) Nonsteroidal Anti-inflammatory Drug Start: 01-09-2022 End: 01-16-2022 etodolac 400 mg oral tablet Dose : 400 mg = 1 tab(s), Oral, BID, # 14 tab(s), 0 Refill(s), Back pain Start Date: 01/09/22 Stop Date: 01/16/22 Status: Ordered famotidine 20 mg oral tablet (1 source) Histamine-2 Receptor Antagonist Start: 06-10-2024 Pepcid 20 mg oral tablet Dose : 20 mg = 1 tab(s), PO, BID, # 6 tab(s), 0 Refill(s) Start Date: 06/10/24 Status: Ordered 12 hr guaiFENesin 600 mg extended release oral tablet (1 source) Start: 02-08-2024 End: 02-18-2024 guaiFENesin 600 mg oral tablet, extended release Dose : 600 mg = 1 tab(s), Oral, q12h, X 10 day(s), # 20 tab(s), 0 Refill(s), 02/18/24 4:08:00 PM EDT, Pharmacy: [facility], Acute bronchitis, 168.4, cm, 02/08/24 15:25:00 EDT, Height, kg, 02/08/24 15:25:00 EDT, Dosing Weight Start Date: 02/08/24 Stop Date: 02/18/24 Status: Ordered hydrOXYzine pamoate 25 mg oral capsule (7 sources) Antihistamine Start: 01-28-2024 End: 02-04-2024 take 1 tablet by mouth three times daily Atarax use hydrOXYzine hydrochloride Dose : 25 mg =, Oral, TID, X 7 day(s), # 20 tab(s), 0 Refill(s), 02/04/24 9:53:00 AM EDT Start Date: 01/28/24 Stop Date: 02/04/24 Status: Ordered Start: 08-08-2023 End: 02-04-2024 hydrOXYzine hydrochloride 50 mg oral tablet Dose : 50 mg = 1 tab(s), Oral, TID, take 1 tablet by mouth three times a day if needed for anxiety, X 30 day(s), # 90 tab(s), 5 Refill(s), 02/04/24 6:58:00 PM EDT, Pharmacy: [facility] #[id number], 167, cm, 06/30/23 12:56:00 EDT, Height, kg, 06/30/23 12:56:00 EDT, Dosing Weight Start Date: 08/08/23 Stop Date: 02/04/24 Status: Ordered Start: 07-21-2022 Vistaril 50 mg oral capsule Dose : 50 mg = 1 cap(s), Oral, QID, PRN as needed for anxiety, # 40 cap(s), 0 Refill(s) Start Date: 07/21/22 Status: Ordered lamoTRIgine 200 mg oral tablet (20 sources) Mood Stabilizer, Anti-epileptic Agent Start: 05-20-2024 take 1 tablet by mouth twice daily lamoTRIgine 200 mg oral tablet 1 tab(s), Oral, BID, # 60 tab(s), 2 Refill(s), Pharmacy: [facility], 171.5, cm, 05/20/24 10:52:00 EDT, Height, kg, 05/20/24 10:52:00 EDT, Dosing Weight Start Date: 05/20/24 Status: Ordered Start: 01-11-2024 End: 04-20-2024 take 1 tablet by mouth every twelve hours lamoTRIgine (LAMICTAL) 200 mg tablet Take 1 tablet by mouth every 12 hours. 0 01/11/2024 Active Start: 07-17-2023 lamoTRIgine 25 0 mg oral tablet, extended release Dose : 250 mg = 1 tab(s), Oral, qDay, # 90 tab(s), 1 Refill(s), [facility]acy: [facility] #[id number], Bipolar disorder, 167, cm, 06/30/23 12:56:00 EDT, Height, kg, 06/30/23 12:56:00 EDT, Dosing Weight Start Date: 07/17/23 Status: Ordered Start: 07-11-2023 LaMICtal XR 50 mg oral tablet, extended release Dose : 50 mg = 1 tab(s), Oral, qDay, # 90 tab(s), 1 Refill(s), Pharmacy: [facility] #[id number], Bipolar disorder, 167, cm, 06/30/23 12:56:00 EDT, Height, kg, 06/30/23 12:56:00 EDT, Dosing Weight Start Date: 07/11/23 Status: Ordered Start: 01-18-2023 lamoTRIgine 25 0 mg oral tablet, extended release Dose : 250 mg = 1 tab(s), Oral, qDay, # 90 tab(s), 1 Refill(s), Pharmacy: [facility] #[id number], Bipolar disorder, 170, cm, 01/03/23 10:17:00 EDT, Height Start Date: 01/18/23 Status: Ordered Start: 12-06-2022 LaMICtal 150 m g oral tablet Dose : 150 mg = 1 tab(s), Oral, qDay, # 60 tab(s), 0 Refill(s) Start Date: 12/06/22 Status: Ordered Start: 02-07-2022 End: 11-15-2022 LaMICtal 25 mg oral tablet D ose : 25 mg = 1 tab(s), Oral, qAM, # 90 tab(s), 2 Refill(s), Pharmacy: [facility] #[id number], 167, cm, 04/13/22 15:27:00 EDT, Height, kg, 04/13/22 15:27:00 EDT, Dosing Weight Start Date: 05/09/22 Status: Ordered Start: 02-07-2022 End: 11-15-2022 LaMICtal 100 mg oral tablet Dose : 100 mg = 1 tab(s), Oral, qDay, # 30 tab(s), 5 Refill(s), Pharmacy: [facility] #[id number], 167, cm, 04/13/22 15:27:00 EDT, Height, kg, 04/13/22 15:27:00 EDT, Dosing Weight Start Date: 05/19/22 Stop Date: 11/15/22 Status: Ordered Start: 10-06-2021 End: 01-28-2022 LaMICtal 25 mg oral tablet D ose : 50 mg = 2 tab(s), Oral, BID, # 120 tab(s), 0 Refill(s), Pharmacy: [facility]/pharmacy #[id number], 169, cm, 08/23/21 10:53:00 EST, Height, kg, 08/23/21 10:48:00 EST, Dosing Weight Start Date: 12/29/21 Stop Date: 01/28/22 Status: Ordered take 200 mg by mouth twice daily lamotrigine (LAMICTAL ORAL) Take 200 mg by mouth two times a day. 0 Active lamotrigine (BURGESS ICTAL ORAL) Take by mouth. 0 Active Comment on above: Take by mouth. LORazepam 2 mg oral tablet (5 sources) Benzodiazepine Start: 03-11-2024 End: 03-12-2024 Ativan 2 mg oral tablet Dose : 2 mg = 1 tab(s), Oral, q8h, PRN as needed for anxiety, X 1 day(s), # 3 tab(s), 0 Refill(s), 03/12/24 8:09:00 PM EDT, Panic attack, 72.7 Start Date: 03/11/24 Stop Date: 03/12/24 Status: Ordered Start: 01-28-2024 End: 01-31-2024 Ativan 1 mg oral tablet Dose : 1 mg = 1 tab(s), Oral, TID, PRN as needed for anxiety, X 3 day(s), # 12 tab(s), 0 Refill(s), 01/31/24 9:53:00 AM EDT, Anxiety, 98 Start Date: 01/28/24 Stop Date: 01/31/24 Status: Ordered Start: 12-18-2023 End: 12-21-2023 Ativan 1 mg oral tablet Dose : 1 mg = 1 tab(s), Oral, TID, X 3 day(s), # 7 tab(s), 0 Refill(s), 12/21/23 1:05:00 PM EDT, Anxiety, 71 Start Date: 12/18/23 Stop Date: 12/21/23 Status: Ordered Start: 02-02-2023 End: 04-03-2023 LORazepam 1 mg oral tablet D ose : 1 mg = 1 tab(s), Oral, q8h, if needed for anxiety, X 30 day(s), # 90 tab(s), 1 Refill(s), 04/03/23 20:16:00 EDT, [facility]: [facility] #[id number], Anxiety, 170, cm, 01/03/23 10:17:00 EDT, Height, 71.6 Start Date: 02/02/23 Stop Date: 04/03/23 Status: Ordered MAT, IRRADIATED PREP MAT, CONTEC, (4 sources) MAT, IRRADIATED PREP MAT, CONTEC, meclizine hydrochloride 25 m g oral tablet (1 source) Antiemetic Start: 01-02-2023 End: 01-07-2023 meclizine 25 mg oral tablet Dose : 25 mg = 1 tab(s), Oral, TID, X 5 day(s), # 15 tab(s), 0 Refill(s), 01/07/23 20:01:00 EDT Start Date: 01/02/23 Stop Date: 01/07/23 Status: Ordered meloxicam 15 mg oral tablet (1 source) Nonsteroidal Anti-inflammatory Drug Start: 03-22-2022 meloxicam 15 mg oral tablet Dose : 15 mg = 1 tab(s), Oral, qDay, # 30 tab(s), 0 Refill(s), [facility]: [facility], Left knee pain, 169, cm, 03/22/22 13:43:00 EDT, Height Start Date: 03/22/22 Status: Ordered methylPREDNISolone 4 mg oral tablet (1 source) Corticosteroid Start: 11-03-2022 End: 11-09-2022 Medrol 4 mg oral tablet 6-5-4-3-2-1 tab(s), Oral, Daily, 24mg day 1, 20mg day 2, 16mg day 3, 12 mg day 4, 8mg day 5, 4mg day 6, X 6 day(s), # 21 tab(s), 0 Refill(s), 11/09/22 11:45:00 EST, Neck pain Start Date: 11/03/22 Stop Date: 11/09/22 Status: Ordered 24 hr metoprolol succinate 2 5 mg extended release oral capsule (20 sources) beta-Adrenergic Perla Start: 01-04-2024 End: 02-07-2025 Kapspargo Sprinkle 25 mg oral capsule, extended release Dose : 25 mg = 1 cap(s), Oral, qDay, # 100 cap(s), 3 Refill(s), Pharmacy: [facility], 167.6, cm, 01/04/24 8:00:00 EDT, Height, kg, 01/04/24 8:00:00 EDT, Dosing Weight Start Date: 01/04/24 Stop Date: 02/07/25 Status: Ordered Start: 06-30-2023 Kapspargo Spri nkle 25 mg oral capsule, extended release Dose : 25 mg = 1 cap(s), Oral, qDay, 0 Refill(s) Start Date: 06/30/23 Status: Ordered Start: 12-12-2022 Kapspargo Spri nkle 25 mg oral capsule, extended release Dose : 25 mg = 1 cap(s), Oral, qDay, # 90 cap(s), 0 Refill(s) Start Date: 12/12/22 Status: Ordered Start: 11-03-2022 Brandispargo Spri nkle 25 mg oral capsule, extended release Dose : 25 mg = 1 cap(s), Oral, qDay, # 30 cap(s), 0 Refill(s) Start Date: 11/03/22 Status: Ordered take 1 tablet by arabella twice daily metoprolol tartrate, short acting, (LOPRESSOR) 25 mg tablet Take 25 mg by mouth two times a day. 0 Active mirtazapine 15 mg oral tablet (1 source) Start: 10-25-2021 End: 2022 mirtazapine 15 mg oral tablet Dose : 15 mg = 1 tab(s), Oral, qHS, # 30 tab(s), 3 Refill(s), Pharmacy: [facility]/pharmacy #[id number], 169, cm, 08/23/21 10:53:00 EST, Height, kg, 08/23/21 10:48:00 EST, Dosing Weight Start Date: 10/25/21 Stop Date: 02/22/22 Status: Ordered ondansetron 4 mg disintegrating oral tablet (5 sources) Serotonin-3 Receptor Antagonist Start: 04-17-2024 take 1 tablet by mouth every eight hours as needed ondansetron orally disintegrating (ZOFRAN ODT) 4 mg disintegrating tablet Take 1 tablet by mouth every 8 hours as needed for nausea/vomiting. 5 tablet 0 04/17/2024 Active Start: 07-17-2022 End: 07-20-2022 ondansetron 4 mg oral tablet , disintegrating Dose : 4 mg = 1 tab(s), Oral, q8h, PRN as needed for nausea/vomiting, X 3 day(s), # 8 tab(s), 0 Refill(s), 07/20/22 21:07:00 EDT Start Date: 07/17/22 Stop Date: 07/20/22 Status: Ordered Start: 01-05-2022 End: 01-10-2022 Zofran 4 mg oral tablet Dose : 4 mg = 1 tab(s), Oral, q6h, PRN Nausea/Vomiting, X 5 day(s), # 20 tab(s), 0 Refill(s), 01/10/22 10:12:00 EDT, Pharmacy: [facility]/pharmacy #[id number], 174, cm, 01/05/22 9:12:00 EDT, Height Start Date: 01/05/22 Stop Date: 01/10/22 Status: Ordered pantoprazole 40 mg delayed release oral tablet (1 source) Proton Pump Inhibitor Start: 06-10-2024 Protonix 40 mg oral enteric coated tablet Dose : 40 mg = 1 tab(s), Oral, qDay, # 30 tab(s), 0 Refill(s) Start Date: 06/10/24 Status: Ordered PHENobarbital 30 mg oral tablet (3 sources) Start: 03-11-2024 End: 03-25-2024 PHENobarbital 30 mg oral tablet Dose : 30 mg = 1 tab(s), Oral, TID, PRN withdrawal symptoms, Separate from a dose of the cloazepam by at least 2 hours, # 42 tab(s), 0 Refill(s), Pharmacy: [facility], Alcohol abuse, 170.2, cm, 03/08/24 14:58:00 EDT, Height, 72.7, kg, 03/11/24 19:37:00 EDT, Dosing Weight Start Date: 03/11/24 Stop Date: 03/25/24 Status: Ordered Start: 07-21-2022 End: 08-04-2022 PHENobarbital 30 mg oral tab let Dose : 30 mg = 1 tab(s), Oral, TID, # 42 tab(s), 0 Refill(s), Pharmacy: [facility] #[id number], Alcohol abuse with withdrawal, 170, cm, 07/21/22 10:32:00 EDT, Height, 74 Start Date: 07/21/22 Stop Date: 08/04/22 Status: Ordered polyethylene glycol 3350 [id number] mg powder for oral solution (1 source) Osmotic Laxative Start: 07-21-2023 End: 08-04-2023 take 17 doses by mouth twice daily MiraLax oral powder for reconstitution Dose : 17 gram(s) =, Oral, BID, X 14 day(s), # 476 gram(s), 0 Refill(s), 08/04/23 5:57:00 PM EDT Start Date: 07/21/23 Stop Date: 08/04/23 Status: Ordered Prenatabs CBF oral tablet (3 sources) Start: 04-16-2021 take 1 tablet by mouth once daily Prenatabs CBF oral tablet Dose = 1 tab(s), Oral, qDay, otc, # 30 tab(s), 0 Refill(s) Start Date: 04/16/21 Status: Ordered Promethazine with Codeine 6.25 mg-10 mg/5 mL oral syrup (1 source) Start: 05-22-2022 End: 05-27-2022 take 1 dose by mouth every six hours as needed for cough Promethazine with Codeine 6.25 mg-10 mg/5 mL oral syrup Dose = 5 mL, Oral, q6hr, PRN as needed for cough, X 5 day(s), # 60 mL, 0 Refill(s), 70 Start Date: 05/22/22 Stop Date: 05/27/22 Status: Ordered selenium sulfide 22.5 mg/ml medicated shampoo (1 source) Start: 02-07-2022 apply 1 dose topically once selenium sulfide 2.25% topical shampoo Dose = 1 bushra, Topical, 2x/Wk, # 180 mL, 5 Refill(s), [facility], cm, 02/07/22 8:55:00 EDT, Height, kg, 02/07/22 8:55:00 EDT, Dosing Weight Start Date: 02/07/22 Status: Ordered Sodium Chloride (5 sources) Start: 02-08-2024 Saline Mist 0.65% nasal spray Dose = 1 spray(s), Intranasal, QID, PRN as needed for dry nasal passages, in each nostril, # 44 mL, 0 Refill(s), Pharmacy: [id number], Acute rhinosinusitis, 168.4, cm, 02/08/24 15:25:00 EDT, Height, kg, 02/08/24 15:25:00 EDT, Dosing Weight Start Date: 02/08/24 Status: Ordered Completed/Discontinued Medications Medication Drug Class(es) Dates Sig (Normalized) Sig (Original) amitriptyline hydrochloride 10 mg oral tablet (1 source) Tricyclic Antidepressant Start: 12-06-2022 End: 12-20-2022 take 1-3 tablets by mouth once daily at bedtime amitriptyline 10 mg oral tablet 1 to 3 tabs, Oral, qHS, # 40 tab(s), 0 Refill(s), Pharmacy: [facility] #[id number], Cervical radicular pain, 170, cm, 12/06/22 9:31:00 EST, Height Start Date: 12/06/22 Stop Date: 12/20/22 Status: Ordered clonazePAM 2 mg oral tablet (20 sources) Benzodiazepine Start: 05-20-2024 End: 06-19-2024 Klonopin 2 mg oral tablet Dose : 2 mg = 1 tab(s), Oral, TID, Please fill early due to change in the dose frequency., # 90 tab(s), 0 Refill(s), Pharmacy: [facility][id number], Anxiety state, 171.5, cm, 05/20/24 10:52:00 EDT, Height, 72.7, kg, 05/20/24 10:52:00 EDT, Dosing Weight Start Date: 05/20/24 Stop Date: 06/19/24 Status: Ordered Start: 01-04-2024 End: 04-03-2024 clonazepam 2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 Performed By: #### P REGU, UDRUG, UADIP #### [address] [address] Monocytes/100 WBC (Bld) 7.7 % Normal 1.7-13.0 [facility] ([place]) Comment on above: Performed By: #### P REGU, UDRUG, UADIP #### [address] [address] Neutrophils/100 WBC (Bld) 57.1 % Normal 37.0-80.0 [facility] ([place]) Comment on above: Performed By: #### P REGU, UDRUG, UADIP #### [address] [address] .GFRon 06-10-2024 GFR 79 ml/min/1.73sqm Normal [facility] ([place]) Comment on above: Result Comment: GFR Population mean for , Non- Americans Ages 20-29 = 116 mL/min/1.73 sq.m. Ages 30-39 = 107 mL/min/1.73 sq.m. Ages 40-49 = 99 mL/min/1.73 sq.m. Ages 50-59 = 93 mL/min/1.73 sq.m. Ages 60-69 = 85 mL/min/1.73 sq.m. Ages 70+ = 75 mL/min/1.73 sq.m. Chronic Kidney Disease: Less than 60 mL/min/1.73 square meters End Stage Renal Disease: Less than 15 mL/min/1.73 square meters Performed By: #### P REGU, UDRUG, UADIP #### [address] [address] GFR Non- 65 ml/min/1.73sqm Normal [facility] ([place]) Comment on above: Result Comment: GFR Population mean for , Non- Americans Ages 20-29 = 116 mL/min/1.73 sq.m. Ages 30-39 = 107 mL/min/1.73 sq.m. Ages 40-49 = 99 mL/min/1.73 sq.m. Ages 50-59 = 93 mL/min/1.73 sq.m. Ages 60-69 = 85 mL/min/1.73 sq.m. Ages 70+ = 75 mL/min/1.73 sq.m. Chronic Kidney Disease: Less than 60 mL/min/1.73 square meters End Stage Renal Disease: Less than 15 mL/min/1.73 square meters Performed By: #### P REGU, UDRUG, UADIP #### [place] [address] .MDWon 06-10-2024 Monocyte Distribution Width 20.09 High 0.00-20.00 [facility] ([place]) Comment on above: Result Comment: For adults in ED, MDW>20.0 may be associated with a higher risk of sepsis during the first 12hrs of hospital admission Performed By: #### P REGU, UDRUG, UADIP #### [place] [address] .NEUABSon 06-10-2024 Neutrophil, Absolute 5.6 10 3/mcL Normal 2.9-6.2 [facility] ([place]) Comment on above: Performed By: #### P REGU, UDRUG, UADIP #### [place] [address] CBCon 06-10-2024 Erythrocyte distribution width (RBC) [Ratio] 14.3 % Normal 11.5-14.5 [facility] ([place]) Comment on above: Performed By: #### P REGU, UDRUG, UADIP #### [place] [address] Hematocrit (Bld) [Volume fraction] 38.8 % Normal 37.0-47.0 [facility] ([place]) Comment on above: Performed By: #### P REGU, UDRUG, UADIP #### [address] [address] Hgb 13.3 G/dL Normal 12.0-16.0 [facility] ([place]) Comment on above: Performed By: #### P REGU, UDRUG, UADIP #### [address] [address] MCH (RBC) [Entitic mass] 31.4 pg High 27.0-31.2 [facility] ([place]) Comment on above: Performed By: #### P REGU, UDRUG, UADIP #### [address] [address] MCHC 34.2 G/dL Normal 33.0-37.0 [facility] ([place]) Comment on above: Performed By: #### P REGU, UDRUG, UADIP #### [address] [address] MCV (RBC) [Entitic vol] 91.9 fL Normal 80.0-94.0 [facility] ([place]) Comment on above: Performed By: #### P REGU, UDRUG, UADIP #### [address] [address] Platelet 240 10 3/mcL Normal 130-400 [facility] ([place]) Comment on above: Performed By: #### P REGU, UDRUG, UADIP #### [address] [address] Platelet mean volume (Bld) [Entitic vol] 8.0 fL Normal 7.4-10.4 [facility] ([place]) Comment on above: Performed By: #### P REGU, UDRUG, UADIP #### [address] [address] RBC 4.22 10 6/mcL Normal 4.20-5.40 [facility] ([place]) Comment on above: Performed By: #### P REGU, UDRUG, UADIP #### [address] [address] WBC 9.8 10 3/mcL Normal 4.6-10.8 [facility]) Comment on above: Performed By: #### P REGU, UDRUG, UADIP #### [address] [address] CMPon 06-10-2024 Albumin Level 3.6 G/dL Normal 3.5-5.0 [facility] ([place]) Comment on above: Performed By: #### P REGU, UDRUG, UADIP #### [address] [address] Albumin/Globulin [Mass ratio] 1.0 {ratio} Low 1.1-2.5 [facility] ([place]) Comment on above: Performed By: #### P REGU, UDRUG, UADIP #### [address] [address] BUN/Creatinine Ratio 12 ratio Normal 7-27 [facility]) Comment on above: Performed By: #### P REGU, UDRUG, UADIP #### [address] [address] Creatinine [Mass/Vol] 0.95 mg/dL Normal 0.55-1.02 [facility]) Comment on above: Result Comment: Test ing performed on Siemens Dimension EXL analyzer using a modified kinetic Emily technique. Performed By: #### P REGU, UDRUG, UADIP #### [address] [address] Globulin 3.6 G/dL Normal [facility] ([place]) Comment on above: Performed By: #### P REGU, UDRUG, UADIP #### [address] [address] ALP [Catalytic activity/Vol] 91 U/L Normal 40-135 [facility]) Comment on above: Performed By: #### P REGU, UDRUG, UADIP #### [address] [address] ALT [Catalytic activity/Vol] 27 U/L Normal 14-59 [facility]) Comment on above: Performed By: #### P REGU, UDRUG, UADIP #### [address] [address] AST [Catalytic activity/Vol] 19 U/L Normal 10-40 [facility] ([place]) Comment on above: Performed By: #### P REGU, UDRUG, UADIP #### [address] [address] Bili Total 0.2 mg/dL Normal 0.2-1.0 [facility] ([place]) Comment on above: Result Comment: Use of this assay is not recommended for patients undergoing treatment with eltrombopag due to the potential for falsely elevated results. Performed By: #### P REGU, UDRUG, UADIP #### [address] [address] Calcium [Mass/Vol] 9.0 mg/dL Normal 8.4-10.2 [facility] [place] Comment on [place]: Performed By: #### P REGU, UDRUG, UADIP #### [address] [address] Chloride [Moles/Vol] 103 mmol/L Normal 98-107 [facility] ([place]) Comment on above: Performed By: #### P REGU, UDRUG, UADIP #### [address] [address] CO2 [Moles/Vol] 33 mmol/L High 22-29 [facility] ([place]) Comment on above: Performed By: #### P REGU, UDRUG, UADIP #### [address] [address] Electrolyte Balance 6.0 mEq/L Normal 4.0-15.0 [facility] ([place]) Comment on above: Performed By: #### P REGU, UDRUG, UADIP #### [address] [address] Glucose [Mass/Vol] 131 mg/dL High 70-105 [facility] [place] Comment [place]: Performed By: #### P REGU, UDRUG, UADIP #### [address] [address] Potassium [Moles/Vol] 3.9 mmol/L Normal 3.5-5.1 [facility] ([place]) Comment on above: Performed By: #### P REGU, UDRUG, UADIP #### [place] [address] [place], [place] [address] Sodium [Moles/Vol] 142 mmol/L Normal 136-145 [facility] [place] Comment [place]: Performed By: #### P REGU, UDRUG, UADIP #### [address] [address] Total Protein 7.2 G/dL Normal 6.4-8.2 [facility] ([place]) Comment on above: Performed By: #### P REGU, UDRUG, UADIP #### [address] [address] Urea nitrogen [Mass/Vol] 11 mg/dL Normal 7-18 [facility] ([place]) Comment on above: Performed By: #### P REGU, UDRUG, UADIP #### [address] [address] LABORATORYOrdered By: SYSTEM SYSTEM on 06-10-2024 Albumin BCP dye [Mass/Vol] 3.6 G/dL Normal 3.5 - 5.0 G/dL AO ADM SS Albumin/Globulin [Mass ratio] 1.0 {ratio} Low 1.1 - 2.5 ratio AO ADM SS ALP [Catalytic activity/Vol] 91 U/L Normal 40 - 135 U/L AO ADM SS ALT With P-5'-P [Catalytic activity/Vol] 27 U/L Normal 14 - 59 U/L AO ADM SS AST With P-5'-P [Catalytic activity/Vol] 19 U/L Normal 10 - 40 U/L AO ADM SS Basophil, Absolute 0.1 103/mcL Normal 0.0 - 0.2 10^3/mcL AO Workflow SS Basophils/100 WBC (Bld) 1.0 % Normal 0.0 - 2.5 % AO Workflow SS Bilirubin [Mass/Vol] 0.2 mg/dL Normal 0.2 - 1 .0 mg/dL AO ADM SS Comment on above: Interpretive Data: U se of this assay is not recommended for patients undergoing treatment with eltrombopag due to the potential for falsely elevated results. Calcium [Mass/Vol] 9.0 mg/dL Normal 8.4 - 10. 2 mg/dL AO ADM SS Chloride [Moles/Vol] 103 mmol/L Normal 98 - 10 7 mmol/L AO ADM SS CO2 [Moles/Vol] 33 mmol/L High 22 - 29 mmol/L AO ADM SS Creatinine [Mass/Vol] 0.95 mg/dL Normal 0.55 - 1.02 mg/dL AO ADM SS Comment on above: Interpretive Data: T esting performed on Siemens Dimension EXL analyzer using a modified kinetic Emily technique. Electrolyte Balance 6.0 mEq/L Normal 4.0 - 15 .0 mEq/L AO ADM SS Eosinophil, Absolute 0.3 103/mcL Normal 0.0 - 0 .4 10^3/mcL AO Workflow SS Eosinophils/100 WBC (Bld) 3.4 % Normal 0.0 - 7.0 % AO Workflow SS Erythrocyte distribution width (RBC) [Ratio] 14.3 % Normal 11.5 - 14.5 % AO Workflow SS GFR/1.73 sq M.predicted among blacks MDRD (S/P/Bld) [Vol rate/Area] 79 ml/min/1.73sqm Invalid Interpretation Code AO Chemistry S Comment on above: Interpretive Data: GFR Population mean for , Non- Americans Ages 20-29 = 116 mL/min/1.73 sq.m. Ages 30-39 = 107 mL/min/1.73 sq.m. Ages 40-49 = 99 mL/min/1.73 sq.m. Ages 50-59 = 93 mL/min/1.73 sq.m. Ages 60-69 = 85 mL/min/1.73 sq.m. Ages 70+ = 75 mL/min/1.73 sq.m. Chronic Kidney Disease: Less than 60 mL/min/1.73 square meters End Stage Renal Disease: Less than 15 mL/min/1.73 square meters GFR/1.73 sq M.predicted among non-blacks MDRD (S/P/Bld) [Vol rate/Area] 65 ml/min/1.73sqm Invalid Interpretation Code AO Chemistry S Comment on above: Interpretive Data: GFR Population mean for , Non- Americans Ages 20-29 = 116 mL/min/1.73 sq.m. Ages 30-39 = 107 mL/min/1.73 sq.m. Ages 40-49 = 99 mL/min/1.73 sq.m. Ages 50-59 = 93 mL/min/1.73 sq.m. Ages 60-69 = 85 mL/min/1.73 sq.m. Ages 70+ = 75 mL/min/1.73 sq.m. Chronic Kidney Disease: Less than 60 mL/min/1.73 square meters End Stage Renal Disease: Less than 15 mL/min/1.73 square meters Globulin 3.6 G/dL Invalid Interpretation Code AO ADM SS Glucose [Mass/Vol] 131 mg/dL High 70 - 105 mg/dL AO ADM SS Hematocrit (Bld) [Volume fraction] 38.8 % Normal 37.0 - 47.0 % AO Workflow SS Hemoglobin (Bld) [Mass/Vol] 13.3 G/dL Normal 12.0 - 16.0 G/dL AO Workflow SS Lipase [Catalytic activity/Vol] U/L 1 Low 16 - 77 U/L AO ADM SS Lymphocyte, Absolute 3.0 103/mcL Normal 0.8 - 3 .9 10^3/mcL AO Workflow SS Lymphocytes/100 WBC (Bld) 30.8 % Normal 10.0 - 50.0 % AO Workflow SS Magnesium [Mass/Vol] 2.1 mg/dL Normal 1.8 - 2 .4 mg/dL AO ADM SS MCH (RBC) [Entitic mass] 31.4 pg High 27.0 - 31.2 pg AO Workflow SS MCHC 34.2 G/dL Normal 33.0 - 37.0 G/dL AO Workflow SS MCV (RBC) [Entitic vol] 91.9 fL Normal 80.0 - 94.0 fL AO Workflow SS Monocyte distribution width Auto (Bld) [Entitic vol] 20.09 1 High 0.00 - 20.00 AO Workflow SS Comment on above: Result Comment: For adults in ED, MDW>20.0 may be associated with a higher risk of sepsis during the first 12hrs of hospital admission Monocyte, Absolute 0.7 103/mcL Normal 0.2 - 1.0 10^3/mcL AO Workflow SS Monocytes/100 WBC (Bld) 7.7 % Normal 1.7 - 13.0 % AO Workflow SS Neutrophil, Absolute 5.6 103/mcL Normal 2.9 - 6 .2 10^3/mcL AO Workflow SS Neutrophils/100 WBC (Bld) 57.1 % Normal 37.0 - 80.0 % AO Workflow SS Platelet mean volume (Bld) [Entitic vol] 8.0 fL Normal 7.4 - 10.4 fL AO Workflow SS Platelets (Bld) [#/Vol] 240 103/mcL Normal 130 - 400 10^3/mcL AO Workflow SS Potassium [Moles/Vol] 3.9 mmol/L Normal 3.5 - 5.1 mmol/L AO ADM SS Protein [Mass/Vol] 7.2 G/dL Normal 6.4 - 8.2 G/dL AO ADM SS RBC (Bld) [#/Vol] 4.22 106/mcL Normal 4.20 - 5.4 0 10^6/mcL AO Workflow SS Sodium [Moles/Vol] 142 mmol/L Normal 136 - 145 mmol/L AO ADM SS Troponin I.cardiac DL <= 0.01 ng/mL [Mass/Vol] ng/L Normal 0 - 51 ng/L AO ADM SS Comment on above: Interpretive Data: H igh Sensitive Troponin I Reference Ranges: Female: 0-51 ng/L Male: 0-76 ng/L Testing performed on [employer] using a homogeneous sandwich chemiluminescent immunoassay based on [employer] technology. Urea nitrogen [Mass/Vol] 11 mg/dL Normal 7 - 18 mg/dL AO ADM SS Urea nitrogen/Creatinine [Mass ratio] 12 ratio Normal 7 - 27 ratio AO ADM SS WBC (Bld) [#/Vol] 9.8 103/mcL Normal 4.6 - 10.8 10^3/mcL AO Workflow SS LIPon 06-10-2024 Lipase Level <10 Low 16-77 [facility] ([place]) Comment on above: Performed By: #### P LACIE MELO UADIP #### [place] [address] [address] MGon 06-10-2024 Magnesium [Mass/Vol] 2.1 mg/dL Normal 1.8-2.4 [facility] ([place]) Comment on above: Performed By: #### P REGU, UDRUG, UADIP #### [place] [address] TROPHSon 06-10-2024 High Sensitivity Troponin I <4 Normal 0-51 [facility] ([place]) Comment on above: Result Comment: High Sensitive Troponin I Reference Ranges: Female: 0-51 ng/L Male: 0-76 ng/L Testing performed on [employer] using a homogeneous sandwich chemiluminescent immunoassay based on [employer] technology. Performed By: #### P REGU, UDRUG, UADIP #### [place] [address] .Urinalysis Microscopic (AO) on 06-05-2024 UA CA Ox Crystal Trace Normal [facility] ([place]) Comment on above: Performed By: #### P REGU, UDRUG, UADIP #### [place] [address] UA RBC 0-5 Abnormal None Seen [facility] ([place]) Comment on above: Performed By: #### P REGU, UDRUG, UADIP #### [place] [address] UA Squam Epithelial 5-10 Abnormal None Seen [facility] ([place]) Comment on above: Performed By: #### P REGU, UDRUG, UADIP #### [place] [address] UA WBC 5-10 Abnormal None Seen [facility] ([place]) Comment on above: Performed By: #### P REGU, UDRUG, UADIP #### [place] [address] CT ABDOMEN/PELVIS W/O CONTRA STon 06-05-2024 CT ABDOMEN/PELVIS W/O CONTRAST ORIGINAL EXAMINATION: CT OF THE ABDOMEN AND PELVIS WITHOUT CONTRAST 06/05/2024 1:37 pm TECHNIQUE: CT of the abdomen and pelvis was performed without the administration of intravenous contrast. Multiplanar reformatted images are provided for review. Automated exposure control, iterative reconstruction, and/or weight based adjustment of the mA/kV was utilized to reduce the radiation dose to as low as reasonably achievable. COMPARISON: September 20, 2023 HISTORY: ORDERING SYSTEM PROVIDED HISTORY: Reason for Exam: BILATERAL flank pain FINDINGS: Minor degenerative changes are noted in the spine, greatest inferiorly. No other osseous abnormality identified. Small areas of dependent atelectasis are identified at both lower lobes. Cholecystectomy clips are present. No focal liver lesion. The spleen, adrenal glands and pancreas are unremarkable. A 3 mm left upper to midpole renal stone is evident. No other nephrolithiasis is evident. No ureteral stone seen. No adenopathy, free air or free fluid is visible. There is a left ovarian 3.2 cm cyst. This is dependently hyperdense, compatible with a small hemorrhagic cyst. Solid pelvic organs and urinary bladder are otherwise unremarkable. No GI tract abnormality is visible. No additional contributory finding seen. IMPRESSION: 1. Nonobstructive left nephrolithiasis. No ureteral stone seen on this exam. 2. Small left ovarian hemorrhagic cyst. 3. No other potential acute finding. Interpreted by: Amador Hutchison MD Preliminary Report By: Amador Hutchison MD Electronically signed By Amador Hutchison MD Dictated Date: 06/05/2024 1:40:31 PM Prelim Date: 06/05/2024 1:43:16 PM Sign Date: 06/05/2024 1:43:16 PM Ordering Provider: LANDON BROWN [facility]) LABORATORYOrdered By: Renny Hernandez on 06-05-2024 Appearance (U) Clear (06/05/24 12:57 PM) Normal Clear AO Auto Urine SS Bilirubin Ql (U) Negative (06/05/24 12:57 PM) Normal Negative AO Auto Urine SS Calcium oxalate crystals LM.HPF (Urine sed) [#/Area] Trace /HPF Normal AO Auto Uri ne SS Color (U) Yellow (06/05/24 12:57 PM) Normal AO Auto Urine SS Glucose Test strip (U) [Mass/Vol] Negative Normal Negative AO Auto Urine SS HCG ( test) Ql Negative (06/05/24 12:57 PM) Normal AO Manual Urine SS Hemoglobin Auto test strip (U) [Mass/Vol] Trace *ABN* (06/05/24 12:57 PM) Invalid Interpretation Code Negative AO Auto Urine SS Ketones Ql (U) Negative Normal Negative AO Auto Ur ine SS test (u) int Not detected Invalid Interpretation Code AO Manual Urine SS UA Leuk Est Trace *ABN* (06/05/24 12:57 PM) Invalid Interpretation Code Negative AO Auto Urine SS UA Nitrite Negative (06/05/24 12:57 PM) Normal Negative AO Auto Urine SS UA pH 7.0 (06/05/24 12:57 PM) Normal 5.0 - 8.0 AO Auto Urine SS UA Protein Negative Normal Negative AO Auto Urine SS UA RBC 0-5 /HPF Invalid Interpretation Code None Seen AO Auto Urine SS UA Spec Grav 1.025 (06/05/24 12:57 PM) Normal 1.015-1.025 AO Auto Urine SS UA Specimen Type Clean Catch (06/05/24 12:57 PM) Normal AO Auto Urine SS UA Squam Epithelial 5-10 /HPF Invalid Interpretation Code None Seen AO Auto Urine SS UA Urobilinogen 0.2 E.U./dL Normal 0.2-1.0 AO Auto Urine SS WBC LM.HPF (Urine sed) [#/Area] 5-10 /HPF Invalid Interpretation Code None Seen AO Auto Urine SS PREGUon 06-05-2024 HCG ( test) Ql (U) Negative Normal [facility] ([place]) Comment on above: Performed By: #### P REGU, UDRUG, UADIP #### [address] [address] test (u) int Not detected Invalid Interpretation Code [facility] ([place]) Comment on above: Performed By: #### P REGU, UDRUG, UADIP #### [address] [address] UAon 06-05-2024 Color (U) Yellow Normal [facility] ([place]) Comment on above: Performed By: #### P REGU, UDRUG, UADIP #### [address] [address] Glucose (U) [Mass/Vol] Negative Normal Negative [facility] ([place]) Comment on above: Performed By: #### P REGU, UDRUG, UADIP #### [address] [address] Ketones Ql (U) Negative Normal Negative [facility] ([place]) Comment on above: Performed By: #### P REGU, UDRUG, UADIP #### [address] [address] UA Appear Clear Normal Clear [facility] ([place]) Comment on above: Performed By: #### P REGU, UDRUG, UADIP #### [address] [address] UA Blood Trace Abnormal Negative [facility] ([place]) Comment on above: Performed By: #### P REGU, UDRUG, UADIP #### [address] [address] UA Leuk Est Trace Abnormal Negative [facility] ([place]) Comment on above: Performed By: #### P REGU, UDRUG, UADIP #### [address] [address] UA Nitrite Negative Normal Negative [facility] ([place]) Comment on above: Performed By: #### P REGU, UDRUG, UADIP #### [address] [address] UA pH 7.0 Normal 5.0 - 8.0 [facility] ([place]) Comment on above: Performed By: #### P REGU, UDRUG, UADIP #### [address] [address] UA Protein Negative Normal Negative [facility] ([place]) Comment on above: Performed By: #### P REGU, UDRUG, UADIP #### [address] [address] UA Spec Grav 1.025 Normal 1.015-1.025 [facility] ([place]) Comment on above: Performed By: #### P REGU, UDRUG, UADIP #### [address] [address] UA Specimen Type Clean Catch Normal [facility] ([place]) Comment on above: Performed By: #### P REGU, UDRUG, UADIP #### [address] [address] UA Urobilinogen 0.2 E.U./dL Normal 0.2-1.0 [facility] ([place]) Comment on above: Performed By: #### P LACIE MELO UADIP #### [place] [id number] [place], [place] [address] Urobilinogen (U) [Mass/Vol] Negative Normal Negative [facility] ([place]) Comment on above: Performed By: #### P CECILIA MELORUG UADIP #### [place] [address] [address] CNOVon 05-17-2024 CNOV Office Visit (UCWSTR) CAROLINA MONTEIRO ([id number]) 1985 F Date Time Provider Department 05/17/24 1:30 PM [facility] During your visit today, we recorded the following information about you: Temperature Pulse Respiration Blood pressure 99.3 degrees 91/minute 18/minute 109/71 Weight Last Period 71 kg 04/16/24 Calvin Coates APRN.[employer]W OPERATOR 05/17/2024 1:48 PM Signed Subjective HPI Nontoxic-appearing female presents urgent care chief complaint suture removal. Patient states had 3 sutures placed at [facility] 5 days ago. States sutures were placed upper lip. Fell at home striking her lip. Feeling well currently. No drainage or fevers. No headaches dizziness or visual changes. Past medical history prescription medications allergies reviewed. .Patient presents with: Suture Removal: X 2 in upper lip, placed at [facility] on 05/11 PAST MEDICAL HISTORY No date: Anxiety No date: DDD (degenerative disc disease), lumbar PAST SURGICAL HISTORY No date: ADENOIDECTOMY PRIMARY No date: APPENDECTOMY 2011: CHOLECYSTECTOMY 2011: ERCP Comment: stent placed No date: OVARIAN CYSTECTOMY UNI/BI 1992: PAST SURGICAL HISTORY OF Comment: surgery on nasal septum 1997: PAST SURGICAL HISTORY OF Comment: lumpectomy on left breast 2007: PAST SURGICAL HISTORY OF Comment: bulging disc repair ALLERGIES Clindamycin, Dilaudid [Hydromorphone (Bulk)], Penicillins, Prednisone, and Tylenol [Acetaminophen] MEDICATIONS busPIRone (BUSPAR) 7.5 mg tablet Take 7.5 mg by mouth two times a day. metoprolol tartrate, short acting, (LOPRESSOR) 25 mg tablet Take 25 mg by mouth two times a day. baclofen 10 mg tablet Take 1 tablet by mouth three times a day as needed (muscle spasms). May cause drowsiness. ARIPiprazole (ABILIFY) 5 mg tablet Take 5 mg by mouth once daily. lamotrigine (LAMICTAL ORAL) Take 200 mg by mouth two times a day. clonazePAM (KLONOPIN) 1 mg tablet Take 1 mg by mouth twice daily as needed. ondansetron orally disintegrating (ZOFRAN ODT) 4 mg disintegrating tablet Take 1 tablet by mouth every 8 hours as needed for nausea/vomiting. (Patient not taking: Reported on 05/17/2024) lamoTRIgine (LAMICTAL) 200 mg tablet Take 1 tablet by mouth every 12 hours. (Patient not taking: Reported on 05/17/2024) MAT, IRRADIATED PREP MAT, [facility], (Patient not taking: Reported on 04/18/2024) FAMILY HISTORY Problem Relation Age of Onset None Mother Hypertension Father other (hypercholestermia) Father Cancer Maternal Grandmother Heart Maternal Grandfather Social History Tobacco Use Smoking status: Former Smokeless tobacco: Never Vaping Use Vaping Use: Never used Substance Use Topics Alcohol use: No Drug use: No BP 109/71 Pulse 91 Temp 37.4 ?C (99.3 ?F) Resp 18 Wt 71 kg (156 lb 8.4 oz) LMP 04/16/2024 (Approximate) SpO2 98% Review of Systems Constitutional: Negative for chills, fever and malaise/fatigue. HENT: Negative for congestion, ear discharge, ear pain, sinus pain and sore throat. Eyes: Negative for blurred vision, pain, discharge and redness. Respiratory: Negative for cough, hemoptysis, sputum production, shortness of breath, wheezing and stridor. Cardiovascular: Negative for chest pain. Gastrointestinal: Negative for abdominal pain, diarrhea, nausea and vomiting. Musculoskeletal: Negative for myalgias. Skin: Negative for itching and rash. Neurological: Negative for dizziness and headaches. Objective Physical Exam Constitutional: General: She is not in acute distress. Appearance: She is not toxic-appearing. HENT: Head: Normocephalic. Comments: 3 sutures noted highlighted area. Wound well-approximated. No drainage or redness. 3 sutures easily removed. Nose: Nose normal. Eyes: Pupils: Pupils are equal, round, and reactive to light. Cardiovascular: Rate and Rhythm: Normal rate. Pulmonary: Effort: Pulmonary effort is normal. No respiratory distress. Musculoskeletal: Cervical back: Normal range of motion. Skin: General: Skin is warm and dry. Neurological: General: No focal deficit present. Mental Status: She is alert. ASSESSMENT/PLAN: 1. Visit for suture removal - ICD9: V58.32, ICD10: Z48.02 Diagnosis suture removal. No evidence of infection. Continue wound care as discussed. Red flags prompt elevation discussed. Follow-up with PCP as needed. Verbalized understand agrees plan of care. Calvin Coates, WASHING MACHINE INSTALLER.CROSS CUT SAW OPERATOR Allergies As of Date: 05/17/2024 Noted Allergy Reaction CLINDAMYCIN 03/15/2021 9 - Itching Comments: Hand numbness and swelling, lip tingling, generalized pruritis DILAUDID (HYDROMORPHONE (BULK)) 04/15/2008 14 - Other: See Comments Comments: Had mental status change from pancreatitis PENICILLINS 04/15/2008 4 - Hives PREDNISONE 04/13/2024 14 - Other: See Comments Comments: High heart hate TYLENOL (ACETAMINOPHEN) 07/ (more content not included)... Normal [facility] CNOVon 04-18-2024 CNOV Office Visit ([facility]) CAROLINA MONTEIRO ([id number]) 1985 F Date Time Provider Department 04/18/24 7:15 PM TASHCALVIN SAGE [facility] During your visit today, we recorded the following information about you: Temperature Pulse Respiration Blood pressure 98.2 degrees 104/minute 16/minute 116/72 Weight 71.4 kg Aminata CalvinMARVIN 04/18/2024 7:36 PM Signed Subjective HPI Nontoxic-appearing female presents urgent care chief plaint neck and shoulder discomfort. Duration of symptoms 12 hours. Associated symptoms neck and shoulder discomfort. Patient was seen by me yesterday in urgent care diagnosed with nausea vomiting. Was prescribed Zofran. States vomited multiple times yesterday. [place] like she pulled a muscle in her neck. Did take some Motrin. This did help. Rates pain 4-5 out of 10. Pain is improving. Denies any other complaints. No traumatic injuries. Denies any fever body aches chills productive cough chest pain shortness of breath pleuritic pain hemoptysis nausea vomiting abdominal pain change in bowel or bladder habits. Past medical history prescription medication use and allergies reviewed. .Patient presents with: Vomiting: Neck and shoulder pain x12 hours PAST MEDICAL HISTORY Diagnosis Date Anxiety DDD (degenerative disc disease), lumbar PAST SURGICAL HISTORY Procedure Laterality Date ADENOIDECTOMY PRIMARY APPENDECTOMY CHOLECYSTECTOMY 2010 ERCP 2010 stent placed OVARIAN CYSTECTOMY UNI/BI PAST SURGICAL HISTORY OF 1992 surgery on nasal septum PAST SURGICAL HISTORY OF 1996 lumpectomy on left breast PAST SURGICAL HISTORY OF 2006 bulging disc repair ALLERGIES Clindamycin, Dilaudid [Hydromorphone (Bulk)], Penicillins, Prednisone, and Tylenol [Acetaminophen] MEDICATIONS ondansetron orally disintegrating (ZOFRAN ODT) 4 mg disintegrating tablet Take 1 tablet by mouth every 8 hours as needed for nausea/vomiting. metoprolol tartrate, short acting, (LOPRESSOR) 25 mg tablet Take 25 mg by mouth two times a day. baclofen 10 mg tablet Take 1 tablet by mouth three times a day as needed (muscle spasms). May cause drowsiness. lamoTRIgine (LAMICTAL) 200 mg tablet Take 1 tablet by mouth every 12 hours. ARIPiprazole (ABILIFY) 5 mg tablet Take 5 mg by mouth once daily. lamotrigine (LAMICTAL ORAL) Take by mouth. clonazePAM (KLONOPIN) 1 mg tablet Take 1 mg by mouth twice daily as needed. MAT, IRRADIATED PREP MAT, CONTEC, (Patient not taking: Reported on 04/18/2024) FAMILY HISTORY Problem Relation Age of Onset None Mother Hypertension Father other (hypercholestermia) Father Cancer Maternal Grandmother Heart Maternal Grandfather Social History Tobacco Use Smoking status: Former Smokeless tobacco: Never Vaping Use Vaping Use: Never used Substance Use Topics Alcohol use: No Drug use: No BP 116/72 Pulse 104 Temp 36.8 ?C (98.2 ?F) Resp 16 Wt 71.4 kg (157 lb 6.5 oz) LMP 09/14/2020 SpO2 97% Review of Systems Constitutional: Negative for chills, fever and malaise/fatigue. HENT: Negative for congestion, ear discharge, ear pain, sinus pain and sore throat. Eyes: Negative for blurred vision, pain, discharge and redness. Respiratory: Negative for cough, hemoptysis, sputum production, shortness of breath, wheezing and stridor. Cardiovascular: Negative for chest pain. Gastrointestinal: Negative for abdominal pain, diarrhea, nausea and vomiting. Musculoskeletal: Positive for neck pain. Negative for back pain, falls, joint pain and myalgias. Skin: Negative for itching and rash. Neurological: Negative for dizziness and headaches. Objective Physical Exam Constitutional: General: She is not in acute distress. Appearance: She is not diaphoretic. HENT: Head: Normocephalic. Jaw: No trismus, tenderness, swelling or pain on movement. Mouth/Throat: Mouth: Mucous membranes are moist. Pharynx: Oropharynx is clear. Uvula midline. No pharyngeal swelling, oropharyngeal exudate, posterior oropharyngeal erythema or uvula swelling. Eyes: Conjunctiva/sclera: Conjunctivae normal. Pupils: Pupils are equal, round, and reactive to light. Cardiovascular: Rate and Rhythm: Normal rate and regular rhythm. Heart sounds: Normal heart sounds. Pulmonary: Effort: Pulmonary effort is normal. No tachypnea, accessory muscle usage or respiratory distress. Breath sounds: Normal breath sounds. No stridor. No wheezing, rhonchi or rales. Abdominal: General: There is no distension. Palpations: Abdomen is soft. Tenderness: There is no abdominal tenderness. There is no guarding or rebound. Musculoskeletal: Cervical back: Normal range of motion and neck supple. No edema, erythema, rigidity or tenderness. No pain with movement. Normal range of motion. Lymphadenopathy: Cervical: No cervical adenopathy. Skin: General: Skin is warm and dry. Comment (more content not included)... Normal [facility] CNOVon 04-17-2024 CNOV Office Visit ([facility]) CAROLINA MONTEIRO ([id number]) 1985 F Date Time Provider Department 04/17/24 6:30 PM CALVIN COATES [facility] During your visit today, we recorded the following information about you: Temperature Pulse Respiration Blood pressure 98.7 degrees 104/minute 18/minute 110/78 Weight 70.9 kg Calvin Coates, WASHING MACHINE INSTALLER.CROSS CUT SAW OPERATOR 04/17/2024 6:59 PM Signed Subjective HPI Nontoxic female presents urgent care chief complaint of vomiting. Duration of symptoms today. Associated symptoms nausea vomiting or transient abdominal pain. Vomited 4-5 times a day. No blood. Last vomited 2 hours ago. He is able to tolerate water. No OTC medication use. Denies any fever body aches chills productive cough chest pain shortness of breath pleuritic pain hemoptysis current abdominal pain or rashes. No change in bowel or bladder habits. Denies chance of . .Patient presents with: Vomiting: Vomiting x 1 day PAST MEDICAL HISTORY Diagnosis Date Anxiety DDD (degenerative disc disease), lumbar PAST SURGICAL HISTORY Procedure Laterality Date ADENOIDECTOMY PRIMARY APPENDECTOMY CHOLECYSTECTOMY 2010 ERCP 2010 stent placed OVARIAN CYSTECTOMY UNI/BI PAST SURGICAL HISTORY OF 1992 surgery on nasal septum PAST SURGICAL HISTORY OF 1996 lumpectomy on left breast PAST SURGICAL HISTORY OF 2006 bulging disc repair ALLERGIES Clindamycin, Dilaudid [Hydromorphone (Bulk)], Penicillins, Prednisone, and Tylenol [Acetaminophen] MEDICATIONS metoprolol tartrate, short acting, (LOPRESSOR) 25 mg tablet Take 25 mg by mouth two times a day. baclofen 10 mg tablet Take 1 tablet by mouth three times a day as needed (muscle spasms). May cause drowsiness. lamoTRIgine (LAMICTAL) 200 mg tablet Take 1 tablet by mouth every 12 hours. ARIPiprazole (ABILIFY) 5 mg tablet Take 5 mg by mouth once daily. lamotrigine (LAMICTAL ORAL) Take by mouth. clonazePAM (KLONOPIN) 1 mg tablet Take 1 mg by mouth twice daily as needed. MAT, IRRADIATED PREP MAT, CONTEC, (Patient not taking: Reported on 04/13/2024) FAMILY HISTORY Problem Relation Age of Onset None Mother Hypertension Father other (hypercholestermia) Father Cancer Maternal Grandmother Heart Maternal Grandfather Social History Tobacco Use Smoking status: Former Smokeless tobacco: Never Vaping Use Vaping Use: Never used Substance Use Topics Alcohol use: No Drug use: No BP 110/78 Pulse 104 Temp 37.1 ?C (98.7 ?F) (Tympanic) Resp 18 Wt 70.9 kg (156 lb 4.9 oz) LMP 09/14/2020 SpO2 95% Review of Systems Constitutional: Negative for chills, fever and malaise/fatigue. HENT: Negative for congestion, ear discharge, ear pain, sinus pain and sore throat. Eyes: Negative for blurred vision, pain, discharge and redness. Respiratory: Negative for cough, hemoptysis, sputum production, shortness of breath, wheezing and stridor. Cardiovascular: Negative for chest pain. Gastrointestinal: Positive for nausea and vomiting. Negative for abdominal pain and diarrhea. Musculoskeletal: Negative for myalgias. Skin: Negative for itching and rash. Neurological: Negative for dizziness and headaches. Objective Physical Exam Constitutional: General: She is not in acute distress. Appearance: She is not diaphoretic. HENT: Head: Normocephalic. Jaw: No trismus, tenderness, swelling or pain on movement. Mouth/Throat: Mouth: Mucous membranes are moist. Pharynx: Oropharynx is clear. Uvula midline. No pharyngeal swelling, oropharyngeal exudate, posterior oropharyngeal erythema or uvula swelling. Eyes: Conjunctiva/sclera: Conjunctivae normal. Pupils: Pupils are equal, round, and reactive to light. Cardiovascular: Rate and Rhythm: Regular rhythm. Tachycardia present. Heart sounds: Normal heart sounds. Pulmonary: Effort: Pulmonary effort is normal. No tachypnea, accessory muscle usage or respiratory distress. Breath sounds: Normal breath sounds. No stridor. No wheezing, rhonchi or rales. Abdominal: General: There is no distension. Palpations: Abdomen is soft. Tenderness: There is no abdominal tenderness. There is no right CVA tenderness, left CVA tenderness, guarding or rebound. Musculoskeletal: Cervical back: Normal range of motion and neck supple. No edema, erythema, rigidity or tenderness. No pain with movement. Normal range of motion. Lymphadenopathy: Cervical: No cervical adenopathy. Skin: General: Skin is warm and dry. Neurological: Mental Status: She is alert and oriented to person, place, and time. ASSESSMENT/PLAN: 1. Nausea and vomiting, unspecified vomiting type - ICD9: 787.01, ICD10: R11.2 Diagnosed with nausea vomiting. No evidence of acute abdomen. Treat as viral etiology. Zofran use as needed. Red flags for prompt ER evaluation discussed. Patient was educated on supportive therapies. Patient will follow up w (more content not included)... Normal [facility] CNOVon 04-13-2024 CNOV Office Visit ([facility]) CAROLINA MONTEIRO ([id number]) 1985 F Date Time Provider Department 04/13/24 9:15 AM CARMEN MCCAULEY [facility] During your visit today, we recorded the following information about you: Temperature Pulse Respiration Blood pressure 98.9 degrees 100/minute 21/minute 100/74 Weight 70.9 kg Carmen Mccauley, [facility] 04/13/2024 9:31 AM Signed ASSESSMENT/PLAN: 1. Cervical paraspinal muscle spasm - ICD9: 728.85, ICD10: M62.838 - BACLOFEN 10 MG TABLET - may be taken with ibuprofen or tylenol. - Follow-up with your PCP and chiropractor as soon as possible. - Discussed red flags and need for immediate medical evaluation if any occur. - Discussed supportive care treatment with fluids, rest and analgesia. - Discussed expected course of illness Carmen Mccauley APRN.Carmen Fisher APRN.CNP 04/13/2024 9:37 AM Signed Subjective Neck Pain Associated symptoms include headaches. Pertinent negatives include no fever. Carolina Monteiro is a 39 year old female who presents with neck spasms, this has been going on for a couple weeks. The neck spasms lead to headaches if she does not get treatment. She typically sees her chiropractor for this which helps but he has been on vacation. Her PCP has also been unavailable. She typically uses baclofen for this but is out. She denies any injury to her neck. States she has a long history of neck and back problems, has had a previous back surgery. She rates her pain 8/10. She has not taken any medication today. Review of Systems Constitutional: Negative for chills and fever. Respiratory: Negative. Cardiovascular: Negative. Musculoskeletal: Positive for neck pain. Negative for back pain. Skin: Negative for rash. Neurological: Positive for headaches. BP 100/74 Pulse 100 Temp 37.2 ?C (98.9 ?F) Resp 21 Wt 70.9 kg (156 lb 4.9 oz) LMP 09/14/2020 SpO2 97% PAST MEDICAL HISTORY Diagnosis Date Anxiety DDD (degenerative disc disease), lumbar PAST SURGICAL HISTORY Procedure Laterality Date ADENOIDECTOMY PRIMARY APPENDECTOMY CHOLECYSTECTOMY 2010 ERCP 2010 stent placed OVARIAN CYSTECTOMY UNI/BI PAST SURGICAL HISTORY OF 1992 surgery on nasal septum PAST SURGICAL HISTORY OF 1996 lumpectomy on left breast PAST SURGICAL HISTORY OF 2006 bulging disc repair ALLERGIES Clindamycin, Dilaudid [Hydromorphone (Bulk)], Penicillins, Prednisone, and Tylenol [Acetaminophen] MEDICATIONS metoprolol tartrate, short acting, (LOPRESSOR) 25 mg tablet Take 25 mg by mouth two times a day. lamoTRIgine (LAMICTAL) 200 mg tablet Take 1 tablet by mouth every 12 hours. ARIPiprazole (ABILIFY) 5 mg tablet Take 5 mg by mouth once daily. lamotrigine (LAMICTAL ORAL) Take by mouth. clonazePAM (KLONOPIN) 1 mg tablet Take 1 mg by mouth twice daily as needed. baclofen 10 mg tablet Take 1 tablet by mouth three times a day as needed (muscle spasms). May cause drowsiness. MAT, IRRADIATED PREP MAT, CONTEC, (Patient not taking: Reported on 04/13/2024) FAMILY HISTORY Problem Relation Age of Onset None Mother Hypertension Father other (hypercholestermia) Father Cancer Maternal Grandmother Heart Maternal Grandfather Social History Tobacco Use Smoking status: Former Smokeless tobacco: Never Vaping Use Vaping Use: Never used Substance Use Topics Alcohol use: No Drug use: No Objective Physical Exam Vitals reviewed. Constitutional: Appearance: Normal appearance. Cardiovascular: Rate and Rhythm: Normal rate and regular rhythm. Heart sounds: Normal heart sounds. Pulmonary: Effort: Pulmonary effort is normal. No respiratory distress. Breath sounds: Normal breath sounds. No wheezing or rales. Musculoskeletal: General: Tenderness present. No swelling or signs of injury. Skin: General: Skin is warm and dry. Findings: No erythema or rash. Neurological: Mental Status: She is alert. ASSESSMENT/PLAN: 1. Cervical paraspinal muscle spasm - ICD9: 728.85, ICD10: M62.838 - BACLOFEN 10 MG TABLET - may be taken with ibuprofen or tylenol. - Follow-up with your PCP and chiropractor as soon as possible. - Discussed red flags and need for immediate medical evaluation if any occur. - Discussed supportive care treatment with fluids, rest and analgesia. - Discussed expected course of illness Carmen Mccauley APRN.CROSS CUT SAW OPERATOR Allergies As of Date: 04/13/2024 Noted Allergy Reaction CLINDAMYCIN 03/15/2021 9 - Itching Comments: Hand numbness and swelling, lip tingling, generalized pruritis DILAUDID (HYDROMORPHONE (BULK)) 04/15/2008 14 - Other: See Comments Comments: Had mental status change from pancreatitis PENICILLINS 04/15/2008 4 - Hives PREDNISONE 04/13/2024 14 - Other: See Comments Comments: High heart hate TYLENOL (ACETAMINOPHEN) 04/15/2008 11 - Vomiting Date Reviewed: 04/13/2024 Reviewed by: Max (more content not included)... Normal [facility] CT SPINE LUMBAR W/O CONTRAST on 03-13-2024 CT SPINE LUMBAR W/O CONTRAST ORIGINAL Indication:ORDERING SYSTEM PROVIDED HISTORY: Reason for Exam: low back pain, incontinence Technique: CT of the lumbar spine without contrast performed using dose optimization techniques including automated exposure control. Comparison: CT abdomen pelvis 09/20/2023 Findings: ALIGNMENT: Trace retrolisthesis of L2 on L3, L3 on L4 and L5 on S1. VERTEBRAE: No acute/recent fracture or interval height loss. Mild endplate degenerative changes are most pronounced at L1-L2 and L5-S1. Anterior spinal degenerative enthesopathy changes involve L1-L2 and L5-S1. DISCS: Severe disc height loss at L5-S1 and moderate height loss at L1-L2 followed by L2-L3. PARAVERTEBRAL SOFT TISSUES: Unremarkable. EVALUATION OF INDIVIDUAL LEVELS DEMONSTRATES: T12-L1: Not included in the field of view. L1-2: Small circumferential disc bulge without herniation, central canal stenosis or foraminal narrowing. L2-3: Circumferential disc bulge with possible superimposed central and left central herniation in combination with ligamentum flavum hypertrophy causes left lateral recess narrowing without central canal stenosis or foraminal narrowing. L3-4: No disc herniation, central canal stenosis, or foraminal narrowing. L4-5: Diffuse disc bulge asymmetric to the left and mild facet arthrosis without central canal stenosis or significant foraminal narrowing. L5-S1: Diffuse posterior disc bulge with a superimposed partially calcified central and left subarticular protrusion abuts and may impinge the descending left S1 nerve root (axial image 23 series 3). Slight caudal migration of disc within the left S1 subarticular zone noted. Disc, osteophytosis and mild facet arthrosis results in mild left greater than right foraminal narrowing. LIMITED EVALUATION OF UPPER SACRUM AND SACROILIAC JOINTS: Degenerative changes of the bilateral, right greater than left sacroiliac joints. ADDITIONAL COMMENTS: Redemonstrated are punctate nonobstructing bilateral renal calculi. Right adnexal cystic structure measuring up to 3.2 cm. No additional follow-up imaging recommended. IMPRESSION: 1. No levels of moderate or severe central canal stenosis. 2. Central and left subarticular protrusion at L5-S1 contacting and possibly impinging the descending left S1 nerve root. 3. No levels of moderate or severe foraminal narrowing. 4. Level by level findings as described. 5. Nonobstructing bilateral renal calculi. Interpreted by: Flori Albarran MD Preliminary Report By: Flori Albarran MD Electronically signed By Flori Albarran MD Dictated Date: 03/13/2024 2:45:47 PM Prelim Date: 03/13/2024 3:03:41 PM Sign Date: 03/13/2024 3:03:41 PM Ordering Provider: PROSPER Raymond [facility] ([place] LABORATORYOrdered By: Marianela Montalvo on 03-13-2024 HCG ( test) Ql Negative (03/13/24 1:38 PM) Normal AO Manual Urine SS test (u) int Not detected Invalid Interpretation Code AO Manual Urine SS PREGUon 03-13-2024 HCG ( test) Ql (U) Negative Normal [facility] ([place] Comment on above: Performed By: #### U AMICAO, UA, PREGU #### [id number] [place], [place] [address] test (u) int Not detected Invalid Interpretation Code [facility] ([place] Comment on above: Performed By: #### U AMICAO, UA, PREGU #### [id number] [place], [place] [address] XR KNEE THREE VIEWS RIGHTon 03-10-2024 XR KNEE THREE VIEWS RIGHT ORIGINAL EXAMINATION: THREE XRAY VIEWS OF THE RIGHT KNEE03/10/2024 11:17 am KNEE 3 VIEWS RIGHT COMPARISON: None HISTORY: ORDERING SYSTEM PROVIDED HISTORY: Reason for Exam: Pain FINDINGS: There is no evidence of acute fracture or subluxation. The joint spaces are maintained and there are no bony lesions. The soft tissues are unremarkable. IMPRESSION: No visible fracture or dislocation. Interpreted by: Amador Fraire MD Preliminary Report By: Amador Fraire MD Electronically signed By Amador Fraire MD Dictated Date: 03/10/2024 11:23:28 AM Prelim Date: 03/10/2024 11:24:10 AM Sign Date: 03/10/2024 11:24:10 AM Ordering Provider: JENISE Raymond [facility] ([place] LABORATORYOrdered By: Shell Callejas on 02-16-2024 Blood Glucose Testing Reason Routine (02/16/24 11:46 AM) [facility] Glucose [Mass/Vol] 110 mg/dL Normal 70 - 110 mg/dL [facility] CNOVon 02-03-2024 CNOV Office Visit ([facility]WSTR) CAROLINA MONTEIRO ([id number]) 1985 F Date Time Provider Department 02/03/24 3:00 PM SHU CUNNINGHAM [facility] During your visit today, we recorded the following information about you: Temperature Pulse Respiration Blood pressure 98.8 degrees 113/minute 18/minute 118/62 Weight 73.1 kg Shu Cunningham APRN.CROSS CUT SAW OPERATOR 02/03/2024 3:08 PM Signed CC: Patient presents with: Ear Pain: Right ear pain x2 weeks HPI: Carolina Monteiro is a 38 year old female who presents to the office with complaint of ear symptoms for a week. Symptoms are staying the same. Associated symptoms includes ear pain. Denies fever, nausea, vomiting , and diarrhea. Treatments tried include nothing so far. with no relief of symptoms. Sick contacts: unknown. History of asthma, frequent episodes of bronchitis, chronic bronchitis, bronchiectasis or COPD: No Smoker: No Seasonal/environment al allergies: No The ROS is otherwise negative. The patient's pmh, medications, allergies, and past visits are reviewed. PHYSICAL EXAM: BP 118/62 Pulse 113 Temp 37.1 ?C (98.8 ?F) Resp 18 Wt 73.1 kg (161 lb 2.5 oz) LMP 09/14/2020 SpO2 98% General appearance: alert, cooperative, pleasant, in no acute distress Head: Normocephalic Eyes: EOM's intact, conjunctiva pink and moist, no icterus, sclera white, non-injected Ears: Right ear: External ear/canal- scratch on bottom of ear canal, TM - clear with good landmarks. Left ear: External ear/canal- Normal, TM - clear with good landmarks Oropharynx:moist without lesions, No erythema, exudates or tonsillar hypertrophy. Heart: Negative. RRR without obvious murmur, gallop, or rubs. No ectopy. Lungs: clear to auscultation, without rales or wheeze, good air exchange PAST MEDICAL HISTORY Diagnosis Date Anxiety DDD (degenerative disc disease), lumbar PAST SURGICAL HISTORY Procedure Laterality Date ADENOIDECTOMY PRIMARY APPENDECTOMY CHOLECYSTECTOMY 2010 ERCP 2010 stent placed OVARIAN CYSTECTOMY UNI/BI PAST SURGICAL HISTORY OF 1992 surgery on nasal septum PAST SURGICAL HISTORY OF 1996 lumpectomy on left breast PAST SURGICAL HISTORY OF 2006 bulging disc repair ALLERGIES Clindamycin, Dilaudid [Hydromorphone (Bulk)], Penicillins, and Tylenol [Acetaminophen] MEDICATIONS lamoTRIgine (LAMICTAL) 200 mg tablet Take 1 tablet by mouth every 12 hours. ARIPiprazole (ABILIFY) 5 mg tablet Take 5 mg by mouth once daily. MAT, IRRADIATED PREP MAT, CONTEC, lamotrigine (LAMICTAL ORAL) Take by mouth. clonazePAM (KLONOPIN) 1 mg tablet Take 1 mg by mouth twice daily as needed. tiZANidine (ZANAFLEX) 4 mg tablet take 1 tablet by mouth every 8 hours if needed for muscle spasm (Patient not taking: Reported on 05/18/2022) BACLOFEN ORAL Take by mouth. (Patient not taking: Reported on 05/18/2022) FAMILY HISTORY Problem Relation Age of Onset None Mother Hypertension Father other (hypercholestermia) Father Cancer Maternal Grandmother Heart Maternal Grandfather Social History Tobacco Use Smoking status: Former Smokeless tobacco: Never Vaping Use Vaping Use: Never used Substance Use Topics Alcohol use: No Drug use: No ASSESSMENT/PLAN: 1. Acute pain of right ear - ICD9: 388.70, ICD10: H92.01 No treatment at this time. Patient was instructed to leave it alone and just let it heal on its own. No signs of infection noted. Potential red flag symptoms discussed with the patient. Reviewed appropriate action plan to take if red flag symptoms occur. Patient agreeable to treatment plan. Shu Cunningham APRN.CROSS CUT SAW OPERATOR Allergies As of Date: 02/03/2024 Noted Allergy Reaction CLINDAMYCIN 03/15/2021 9 - Itching Comments: Hand numbness and swelling, lip tingling, generalized pruritis DILAUDID (HYDROMORPHONE (BULK)) 04/15/2008 14 - Other: See Comments Comments: Had mental status change from pancreatitis PENICILLINS 04/15/2008 4 - Hives TYLENOL (ACETAMINOPHEN) 04/15/2008 11 - Vomiting Date Reviewed: 02/03/2024 Reviewed by: Roseanne Simmons - Fully Assessed Reason for Visit: Ear Pain [817] Cmt: Right ear pain x2 weeks Primary Visit Diagnosis:Acute pain of right ear [H92.01] Prescriptions as of 02/03/2024 - lamoTRIgine (LAMICTAL) 200 mg tablet Take 1 tablet by mouth every 12 hours. - ARIPiprazole (ABILIFY) 5 mg tablet Take 5 mg by mouth once daily. - MAT, IRRADIATED PREP MAT, CONTEC, - lamotrigine (LAMICTAL ORAL) Take by mouth. - tiZANidine (ZANAFLEX) 4 mg tablet take 1 tablet by mouth every 8 hours if needed for muscle spasm - clonazePAM (KLONOPIN) 1 mg tablet Take 1 mg by mouth twice daily as needed. - BACLOFEN ORAL Take by mouth. Problem List As Of Date 02/03/2024 Noted Resolved Somatic dysfunction of spine, thoracic [M99.02] 02/25/2013 Somatic dysfunction of lumbar region [M99.03] 02/25/2013 Back pain [M54.9] 02/25/2013 Encounter Numbe (more content not included)... Normal [facility] .Auto Diffon 01-27-2024 Basophil, Absolute 0.1 10 3/mcL Normal 0.0-0.2 [facility] ([place]) Comment on above: Performed By: #### U STEVE DICKSON, PREGU #### [address] [address] Basophils/100 WBC (Bld) 1.1 % Normal 0.0-2.5 [facility] ([place]) Comment on above: Performed By: #### U STEVE DICKSON, PREGU #### [address] [place], [place] [address] Eosinophil, Absolute 0.3 10 3/mcL Normal 0.0-0.4 [facility] ([place]) Comment on above: Performed By: #### STEVE COX, PREGU #### [address] [place], [place] [address] Eosinophils/100 WBC (Bld) 2.8 % Normal 0.0-7.0 [facility] ([place] Comment on above: Performed By: #### U AMICAO UA, PREGU #### [address] [address] Lymphocyte, Absolute 3.0 10 3/mcL Normal 0.8-3.9 [facility] ([place] Comment on above: Performed By: #### U AMICAO UA, PREGU #### [address] [address] Lymphocytes/100 WBC (Bld) 26.1 % Normal 10.0-50.0 [facility] ([place] Comment on above: Performed By: #### U AMICAO UA, PREGU #### [address] [address] Monocyte, Absolute 1.0 10 3/mcL Normal 0.2-1.0 [facility] ([place] Comment on above: Performed By: #### U AMICAO UA, PREGU #### [address] [address] Monocytes/100 WBC (Bld) 8.6 % Normal 1.7-13.0 [facility] ([place] Comment on above: Performed By: #### U AMICAO UA, PREGU #### [address] [address] Neutrophils/100 WBC (Bld) 61.4 % Normal 37.0-80.0 [facility] ([place] Comment on above: Performed By: #### U AMICAO UA, PREGU #### [address] [address] .GFRon 01-27-2024 GFR Non- 59 ml/min/1.73sqm Normal [facility] ([place]) Comment on above: Result Comment: GFR Population mean for , Non- Americans Ages 20-29 = 116 mL/min/1.73 sq.m. Ages 30-39 = 107 mL/min/1.73 sq.m. Ages 40-49 = 99 mL/min/1.73 sq.m. Ages 50-59 = 93 mL/min/1.73 sq.m. Ages 60-69 = 85 mL/min/1.73 sq.m. Ages 70+ = 75 mL/min/1.73 sq.m. Chronic Kidney Disease: Less than 60 mL/min/1.73 square meters End Stage Renal Disease: Less than 15 mL/min/1.73 square meters Performed By: #### U AMICAO, UA, PREGU #### [address] [address] GFR 72 ml/min/1.73sqm Normal [facility] ([place] Comment on above: Result Comment: GFR Population mean for , Non- Americans Ages 20-29 = 116 mL/min/1.73 sq.m. Ages 30-39 = 107 mL/min/1.73 sq.m. Ages 40-49 = 99 mL/min/1.73 sq.m. Ages 50-59 = 93 mL/min/1.73 sq.m. Ages 60-69 = 85 mL/min/1.73 sq.m. Ages 70+ = 75 mL/min/1.73 sq.m. Chronic Kidney Disease: Less than 60 mL/min/1.73 square meters End Stage Renal Disease: Less than 15 mL/min/1.73 square meters Performed By: #### U AMICAO, UA, PREGU #### [address] [address] .MDWon 01-27-2024 Monocyte Distribution Width 17.06 Normal 0.00-20.00 [facility] ([place] Comment on above: Result Comment: For ED adult patients suspected of sepsis, MDW<=20.0 does not rule out sepsis or risk of sepsis Performed By: #### U AMICAO, UA, PREGU #### [address] [address] .NEUABSon 01-27-2024 Neutrophil, Absolute 7.0 10 3/mcL High 2.9-6.2 [facility] ([place] Comment on above: Performed By: #### U AMICAO, UA, PREGU #### [place] [address] ACETAon 01-27-2024 Acetaminophen [Mass/Vol] 0.0 ug/mL Low 10.0-30.0 [facility] ([place] Comment on above: Performed By: #### U AMICAO UA, PREGU #### [place] [address] Mel 01-27-2024 Ethanol Level <3 Normal 0-3 [facility] ([place] Comment on above: Performed By: #### U AMICAO UA, PREGU #### [place] [address] CBCon 01-27-2024 Erythrocyte distribution width (RBC) [Ratio] 14.8 % High 11.5-14.5 [facility] ([place] Comment on above: Performed By: #### Steve DICKSON UA, PREGU #### [place] [address] Hematocrit (Bld) [Volume fraction] 39.9 % Normal 37.0-47.0 [facility] ([place] Comment on above: Performed By: #### Steve DICKSON UA, PREGU #### [place] [address] Hgb 13.4 G/dL Normal 12.0-16.0 [facility] ([place] Comment on above: Performed By: #### U AMICAO, UA, PREGU #### [place] [address] MCH (RBC) [Entitic mass] 30.1 pg Normal 27.0-31.2 [facility] ([place] Comment on above: Performed By: #### U AMICAO, UA, PREGU #### [place] [address] MCHC 33.6 G/dL Normal 33.0-37.0 [facility] ([place] Comment on above: Performed By: #### U AMICAO, UA, PREGU #### [address] [address] MCV (RBC) [Entitic vol] 89.4 fL Normal 80.0-94.0 [facility] ([place] Comment on above: Performed By: #### U AMIGITAO UA, PREGU #### [address] [address] Platelet 261 10 3/mcL Normal 130-400 [facility] ([place] Comment on above: Performed By: #### U AMICAO UA, PREGU #### [address] [address] Platelet mean volume (Bld) [Entitic vol] 8.0 fL Normal 7.4-10.4 [facility] ([place] Comment on above: Performed By: #### Steve DICKSON UA, PREGU #### [address] [address] RBC 4.46 10 6/mcL Normal 4.20-5.40 [facility] ([place] Comment on above: Performed By: #### U AMICAO UA, PREGU #### [address] [address] WBC 11.3 10 3/mcL High 4.6-10.8 [facility] ([place] Comment on above: Performed By: #### U AMICAO UA, PREGU #### [address] [address] CKon 01-27-2024 CK [Catalytic activity/Vol] 89 U/L Normal 26-192 [facility] ([place] Comment on above: Performed By: #### U AMICAO UA, PREGU #### [address] [address] CMPon 01-27-2024 Albumin Level 3.9 G/dL Normal 3.5-5.0 [facility] ([place] Comment on above: Performed By: #### U AMICAO UA, PREGU #### [address] [address] Albumin/Globulin [Mass ratio] 1.3 {ratio} Normal 1.1-2.5 [facility] ([place] Comment on above: Performed By: #### U AMICAO UA, PREGU #### [address] [address] ALP [Catalytic activity/Vol] 64 U/L Normal 40-135 [facility] ([place] Comment on above: Performed By: #### U AMICAO UA, PREGU #### [address] [address] ALT [Catalytic activity/Vol] 35 U/L Normal 14-59 [facility] ([place] Comment on above: Performed By: #### U AMICAO UA, PREGU #### [address] [address] AST [Catalytic activity/Vol] 20 U/L Normal 10-40 [facility] ([place] Comment on above: Performed By: #### U AMICAO UA, PREGU #### [address] [address] Bili Total 0.2 mg/dL Normal 0.2-1.0 [facility] ([place] Comment on above: Result Comment: Use of this assay is not recommended for patients undergoing treatment with eltrombopag due to the potential for falsely elevated results. Performed By: #### U AMICAO UA, PREGU #### [address] [address] BUN/Creatinine Ratio 11 ratio Normal 7-27 [facility] ([place] Comment on above: Performed By: #### U AMICAO, UA, PREGU #### [address] [address] Calcium [Mass/Vol] 9.1 mg/dL Normal 8.4-10.2 [facility] [place] Comment [place]: Performed By: #### U AMICAO, UA, PREGU #### [address] [address] Chloride [Moles/Vol] 103 mmol/L Normal 98-107 [facility] ([place] Comment on above: Performed By: #### U AMICAO, UA, PREGU #### [address] [address] CO2 [Moles/Vol] 34 mmol/L High 22-29 [facility] ([place] Comment on above: Performed By: #### U AMICAO, UA, PREGU #### [address] [address] Creatinine [Mass/Vol] 1.03 mg/dL High 0.55-1.02 [facility] ([place] Comment on above: Performed By: #### U AMICAO, UA, PREGU #### [place] [id number] Electrolyte Balance 5.0 mEq/L Normal 4.0-15.0 [facility] ([place]) Comment on above: Performed By: #### U AMICAO, UA, PREGU #### [id number] Globulin 2.9 G/dL Normal [facility] ([place] Comment on above: Performed By: #### U AMICAO, UA, PREGU #### [address] [address] Glucose [Mass/Vol] 98 mg/dL Normal 70-105 [facility] [place] Comment [place] above: Performed By: #### U AMICAO, UA, PREGU #### [address] [address] Potassium [Moles/Vol] 3.9 mmol/L Normal 3.5-5.1 [facility] ([place] Comment on above: Performed By: #### U AMICAO, UA, PREGU #### [address] [address] Sodium [Moles/Vol] 142 mmol/L Normal 136-145 [facility] [place] Comment [place] above: Performed By: #### U AMICAO, UA, PREGU #### [address] [address] Total Protein 6.8 G/dL Normal 6.4-8.2 [facility] ([place] Comment on above: Performed By: #### U STEVE DICKSON, PREGU #### [address] [address] Urea nitrogen [Mass/Vol] 11 mg/dL Normal 7-18 [facility] ([place] Comment on above: Performed By: #### U RANDOLPH UA, PREGU #### [address] [address] CVFLURVon 01-27-2024 FLU A PCR Negative Normal Negative [facility] ([place] Comment on above: Performed By: #### P REGU UDRUG, UADIP #### [place] [address] FLU B PCR Negative Normal Negative [facility] ([place] Comment on above: Performed By: #### P REGU UDRUG, UADIP #### [address] [place] [address] RSV PCR Negative Normal Negative [facility] ([place] Comment on above: Performed By: #### P REGU UDRUG, UADIP #### [place] [address] SARS-CoV-2 (COVID-19) RNA CHARLES+probe Ql (Unsp spec) Negative Normal Negative [facility] ([place] Comment on above: Result Comment: Resu lts from the Xpert Xpress CoV-2/Flu/RSV plus test should be correlated with the clinical history, epidemiological data, and other data available to the clinical evaluating the patient. Performance of the Xpert Xpress CoV-2/Flu/RSV plus test has only been established in nasopharyngeal swab specimen. Erroneous test results might occur from improper specimen collection, failure to follow the recommended sample collection, handling and storage procedures, technical error, or sample mix-up. False negative results may occur if a virus is present at a level below the analytical limit of detection. Viral nucleic acid may persist in vivo, independent of virus viability. Detection of analyte target(s) does not imply that the corresponding virus(es) are infectious or are the causative agents for clinical symptoms. Recent patient exposure to FluMist or other live attenuated influenza vaccines may cause inaccurate positive results. Performed By: #### P BOLAULACIE, UADIP #### [id number] [place], [place] [address] LABORATORYOrdered By: Marianela Montalvo on 01-27-2024 Amphetamines Screen Ql (U) Negative *NA* (01/27/24 5:36 PM) Invalid Interpretation Code Negative AO ADM SS Appearance (U) Clear (01/27/24 5:36 PM) Normal Clear AO Auto Urine SS Barbiturates Screen Ql (U) Negative *NA* (01/27/24 5:36 PM) Invalid Interpretation Code Negative AO ADM SS Benzodiazepines Ql (U) Positive *ABN* (01/27/24 5:36 PM) Invalid Interpretation Code Negative AO ADM SS Benzoylecgonine Screen Ql (U) Negative *NA* (01/27/24 5:36 PM) Invalid Interpretation Code Negative AO ADM SS Bilirubin Ql (U) Negative (01/27/24 5:36 PM) Normal Negative AO Auto Urine SS Cannabinoids Screen Ql (U) Negative *NA* (01/27/24 5:36 PM) Invalid Interpretation Code Negative AO ADM SS Color (U) Yellow (01/27/24 5:36 PM) Normal AO Auto Urine SS Glucose Test strip (U) [Mass/Vol] Negative Normal Negative AO Auto Urine SS HCG ( test) Ql Negative (01/27/24 5:36 PM) Normal AO Manual Urine SS Hemoglobin Auto test strip (U) [Mass/Vol] Trace *ABN* (01/27/24 5:36 PM) Invalid Interpretation Code Negative AO Auto Urine SS Ketones Ql (U) Negative Normal Negative AO Auto Ur ine SS Methadone Screen Ql (U) Negative *NA* (01/27/24 5:36 PM) Invalid Interpretation Code Negative AO ADM SS Opiates Screen Ql (U) Negative *NA* (01/27/24 5:36 PM) Invalid Interpretation Code Negative AO ADM SS Phencyclidine Ql (U) Negative *NA* (01/27/24 5:36 PM) Invalid Interpretation Code Negative AO ADM SS test (u) int Not detected Invalid Interpretation Code AO Manual Urine SS UA Leuk Est Negative (01/27/24 5:36 PM) Normal Negative AO Auto Urine SS UA Nitrite Negative (01/27/24 5:36 PM) Normal Negative AO Auto Urine SS UA pH 7.0 (01/27/24 5:36 PM) Normal 5.0 - 8.0 AO Auto Urine SS UA Protein Negative Normal Negative AO Auto Urine SS UA Spec Grav 1.020 (01/27/24 5:36 PM) Normal 1.015-1.025 AO Auto Urine SS UA Specimen Type Clean Catch (01/27/24 5:36 PM) Normal AO Auto Urine SS UA Urobilinogen 0.2 E.U./dL Normal 0.2-1.0 AO Auto Urine SS Urine Drugs screened: See Below 4 (01/27/24 5:36 PM) Normal AO Chemistry S Comment on above: Interpretive Data: T his drug screen is a presumptive screening only. No confirmation will be performed unless requested. Drugs screened include: Threshold Amphetamines/Methamphetamines 1,000 ng/mL Barbiturates 200 ng/mL Benzodiazepine metabolites 200 ng/mL Cannabinoids (THC metabolites) 50 ng/mL Cocaine 300 ng/mL Opiates 300 ng/mL Methadone 300 ng/mL Phencyclidine (PCP) 25 ng/mL Testing has been performed FOR MEDICAL PURPOSES ONLY. Acetaminophen [Mass/Vol] 0.0 ug/mL Low 10.0 - 30.0 mcg/mL AO Chemistry S FLUAV RNA CHARLES+probe Ql (Resp) Negative (01/27/24 5:22 PM) Normal Negative AO Auto Urine SS FLUBV RNA CHARLES+probe Ql (Resp) Negative (01/27/24 5:22 PM) Normal Negative AO Auto Urine SS RSV RNA CHARLES+probe Ql (Resp) Negative (01/27/24 5:22 PM) Normal Negative AO Auto Urine SS SARS-CoV-2 (COVID-19) RNA CHARLES+probe Ql (Resp) Negative 5 (01/27/24 5:22 PM) Normal Negative AO Auto Urine SS Comment on above: Interpretive Data: R esults from the Xpert Xpress CoV-2/Flu/RSV plus test should be correlated with the clinical history, epidemiological data, and other data available to the clinical evaluating the patient. Performance of the Xpert Xpress CoV-2/Flu/RSV plus test has only been established in nasopharyngeal swab specimen. Erroneous test results might occur from improper specimen collection, failure to follow the recommended sample collection, handling and storage procedures, technical error, or sample mix-up. False negative results may occur if a virus is present at a level below the analytical limit of detection. Viral nucleic acid may persist in vivo, independent of virus viability. Detection of analyte target(s) does not imply that the corresponding virus(es) are infectious or are the causative agents for clinical symptoms. Recent patient exposure to FluMist or other live attenuated influenza vaccines may cause inaccurate positive results. LABORATORYOrdered By: SYSTEM SYSTEM on 01-27-2024 Albumin BCP dye [Mass/Vol] 3.9 G/dL Normal 3.5 - 5.0 G/dL AO ADM SS Albumin/Globulin [Mass ratio] 1.3 {ratio} Normal 1.1 - 2.5 ratio AO ADM SS ALP [Catalytic activity/Vol] 64 U/L Normal 40 - 135 U/L AO ADM SS ALT With P-5'-P [Catalytic activity/Vol] 35 U/L Normal 14 - 59 U/L AO ADM SS AST With P-5'-P [Catalytic activity/Vol] 20 U/L Normal 10 - 40 U/L AO ADM SS Basophil, Absolute 0.1 103/mcL Normal 0.0 - 0.2 10^3/mcL AO Workflow SS Basophils/100 WBC (Bld) 1.1 % Normal 0.0 - 2.5 % AO Workflow SS Bilirubin [Mass/Vol] 0.2 mg/dL Normal 0.2 - 1 .0 mg/dL AO ADM SS Comment on above: Interpretive Data: U se of this assay is not recommended for patients undergoing treatment with eltrombopag due to the potential for falsely elevated results. Calcium [Mass/Vol] 9.1 mg/dL Normal 8.4 - 10. 2 mg/dL AO ADM SS Chloride [Moles/Vol] 103 mmol/L Normal 98 - 10 7 mmol/L AO ADM SS CK [Catalytic activity/Vol] 89 U/L Normal 26 - 192 U/L AO ADM SS CO2 [Moles/Vol] 34 mmol/L High 22 - 29 mmol/L AO ADM SS Creatinine [Mass/Vol] 1.03 mg/dL High 0.55 - 1.02 mg/dL AO ADM SS Electrolyte Balance 5.0 mEq/L Normal 4.0 - 15 .0 mEq/L AO ADM SS Eosinophil, Absolute 0.3 103/mcL Normal 0.0 - 0 .4 10^3/mcL AO Workflow SS Eosinophils/100 WBC (Bld) 2.8 % Normal 0.0 - 7.0 % AO Workflow SS Erythrocyte distribution width (RBC) [Ratio] 14.8 % High 11.5 - 14.5 % AO Workflow SS Ethanol [Mass/Vol] mg/dL Normal 0 - 3 mg/dL AO AD M SS GFR/1.73 sq M.predicted among blacks MDRD (S/P/Bld) [Vol rate/Area] 72 ml/min/1.73sqm Invalid Interpretation Code AO Chemistry S Comment on above: Interpretive Data: GFR Population mean for , Non- Americans Ages 20-29 = 116 mL/min/1.73 sq.m. Ages 30-39 = 107 mL/min/1.73 sq.m. Ages 40-49 = 99 mL/min/1.73 sq.m. Ages 50-59 = 93 mL/min/1.73 sq.m. Ages 60-69 = 85 mL/min/1.73 sq.m. Ages 70+ = 75 mL/min/1.73 sq.m. Chronic Kidney Disease: Less than 60 mL/min/1.73 square meters End Stage Renal Disease: Less than 15 mL/min/1.73 square meters GFR/1.73 sq M.predicted among non-blacks MDRD (S/P/Bld) [Vol rate/Area] 59 ml/min/1.73sqm Invalid Interpretation Code AO Chemistry S Comment on above: Interpretive Data: GFR Population mean for , Non- Americans Ages 20-29 = 116 mL/min/1.73 sq.m. Ages 30-39 = 107 mL/min/1.73 sq.m. Ages 40-49 = 99 mL/min/1.73 sq.m. Ages 50-59 = 93 mL/min/1.73 sq.m. Ages 60-69 = 85 mL/min/1.73 sq.m. Ages 70+ = 75 mL/min/1.73 sq.m. Chronic Kidney Disease: Less than 60 mL/min/1.73 square meters End Stage Renal Disease: Less than 15 mL/min/1.73 square meters Globulin 2.9 G/dL Invalid Interpretation Code AO ADM SS Glucose [Mass/Vol] 98 mg/dL Normal 70 - 105 mg/dL AO ADM SS Hematocrit (Bld) [Volume fraction] 39.9 % Normal 37.0 - 47.0 % AO Workflow SS Hemoglobin (Bld) [Mass/Vol] 13.4 G/dL Normal 12.0 - 16.0 G/dL AO Workflow SS Lymphocyte, Absolute 3.0 103/mcL Normal 0.8 - 3 .9 10^3/mcL AO Workflow SS Lymphocytes/100 WBC (Bld) 26.1 % Normal 10.0 - 50.0 % AO Workflow SS MCH (RBC) [Entitic mass] 30.1 pg Normal 27.0 - 31.2 pg AO Workflow SS MCHC 33.6 G/dL Normal 33.0 - 37.0 G/dL AO Workflow SS MCV (RBC) [Entitic vol] 89.4 fL Normal 80.0 - 94.0 fL AO Workflow SS Monocyte distribution width Auto (Bld) [Entitic vol] 17.06 1 Normal 0.00 - 20.00 AO Workflow SS Comment on above: Result Comment: For ED adult patients suspected of sepsis, MDW<=20.0 does not rule out sepsis or risk of sepsis Monocyte, Absolute 1.0 103/mcL Normal 0.2 - 1.0 10^3/mcL AO Workflow SS Monocytes/100 WBC (Bld) 8.6 % Normal 1.7 - 13.0 % AO Workflow SS Neutrophil, Absolute 7.0 103/mcL High 2.9 - 6 .2 10^3/mcL AO Workflow SS Neutrophils/100 WBC (Bld) 61.4 % Normal 37.0 - 80.0 % AO Workflow SS Platelet mean volume (Bld) [Entitic vol] 8.0 fL Normal 7.4 - 10.4 fL AO Workflow SS Platelets (Bld) [#/Vol] 261 103/mcL Normal 130 - 400 10^3/mcL AO Workflow SS Potassium [Moles/Vol] 3.9 mmol/L Normal 3.5 - 5.1 mmol/L AO ADM SS Protein [Mass/Vol] 6.8 G/dL Normal 6.4 - 8.2 G/dL AO ADM SS RBC (Bld) [#/Vol] 4.46 106/mcL Normal 4.20 - 5.4 0 10^6/mcL AO Workflow SS Salicylates [Mass/Vol] 5.1 mg/dL Normal 2.8 - 20.0 mg/dL AO ADM SS Sodium [Moles/Vol] 142 mmol/L Normal 136 - 145 mmol/L AO ADM SS Troponin I.cardiac DL <= 0.01 ng/mL [Mass/Vol] ng/L Normal 0 - 51 ng/L AO ADM SS Comment on above: Interpretive Data: H igh Sensitive Troponin I Reference Ranges: Female: 0-51 ng/L Male: 0-76 ng/L Testing performed on Dimension EXL using a homogeneous sandwich chemiluminescent immunoassay based on [employer] technology. Urea nitrogen [Mass/Vol] 11 mg/dL Normal 7 - 18 mg/dL AO ADM SS Urea nitrogen/Creatinine [Mass ratio] 11 ratio Normal 7 - 27 ratio AO ADM SS WBC (Bld) [#/Vol] 11.3 103/mcL High 4.6 - 10.8 10^3/mcL AO Workflow SS PREGUon 01-27-2024 HCG ( test) Ql (U) Negative Normal [facility] ([place]) Comment on above: Performed By: #### P REGUCECILIARUG UADIP #### [place] [address] test (u) int Not detected Invalid Interpretation Code [facility] ([place] Comment on above: Performed By: #### P REGUCECILIARUG UADIP #### [place] [address] [address] SALon 01-27-2024 Salicylate Level 5.1 mg/dL Normal 2.8-20.0 [facility] ([place] Comment on above: Performed By: #### U AMICAO UA, PREGU #### [address] [address] TROPHSon 01-27-2024 High Sensitivity Troponin I <4 Normal 0-51 [facility] ([place] Comment on above: Result Comment: High Sensitive Troponin I Reference Ranges: Female: 0-51 ng/L Male: 0-76 ng/L Testing performed on Dimension EXL using a homogeneous sandwich chemiluminescent immunoassay based on [employer] technology. Performed By: #### U AMICAO UA, PREGU #### [address] [address] UDRUGon 01-27-2024 Amphetamine (u) Negative Normal Negative [facility] ([place]) Comment on above: Performed By: #### P REGU, UDRUG, UADIP #### [place] [address] Barbiturate (u) Negative Normal Negative [facility] ([place]) Comment on above: Performed By: #### P REGU, UDRUG, UADIP #### [place] [address] Benzodiazepine (u) Positive Abnormal Negative [facility] [place] Comment on above: Performed By: #### P REGU, UDRUG, UADIP #### [place] [address] Cannabinoid (u) Negative Normal Negative [facility] ([place]) Comment on above: Performed By: #### P REGU, UDRUG, UADIP #### [place] [address] Cocaine Ql (U) Negative Normal Negative [facility] ([place]) Comment on above: Performed By: #### P REGU, UDRUG, UADIP #### [place] [address] Methadone Ql (U) Negative Normal Negative [facility] ([place]) Comment on above: Performed By: #### P REGU, UDRUG, UADIP #### [place] [address] Opiate (u) Negative Normal Negative [facility] ([place]) Comment on above: Performed By: #### P REGU, UDRUG, UADIP #### [place] [address] PCP (u) Negative Normal Negative [facility] ([place] Comment on above: Performed By: #### P REGU, UDRUG, UADIP #### [place] [address] Urine Drugs screened: See Below Normal [facility] ([place] Comment on above: Result Comment: This drug screen is a presumptive screening only. No confirmation will be performed unless requested. Drugs screened include: Threshold Amphetamines/Methamphetamines 1,000 ng/mL Barbiturates 200 ng/mL Benzodiazepine metabolites 200 ng/mL Cannabinoids (THC metabolites) 50 ng/mL Cocaine 300 ng/mL Opiates 300 ng/mL Methadone 300 ng/mL Phencyclidine (PCP) 25 ng/mL Testing has been performed FOR MEDICAL PURPOSES ONLY. Performed By: #### P REGU, UDRUG, UADIP #### [place] [address] URINon 01-27-2024 Color (U) Yellow Normal [facility] ([place] Comment on above: Performed By: #### P REGU, UDRUG, UADIP #### [place] [address] Glucose (U) [Mass/Vol] Negative Normal Negative [facility] ([place] Comment on above: Performed By: #### P REGU, UDRUG, UADIP #### [place] [address] Ketones Ql (U) Negative Normal Negative [facility] ([place] Comment on above: Performed By: #### P REGU, UDRUG, UADIP #### [place] [address] UA Appear Clear Normal Clear [facility] ([place] Comment on above: Performed By: #### P REGU, UDRUG, UADIP #### [place] [address] UA Blood Trace Abnormal Negative [facility] ([place] Comment on above: Performed By: #### P REGU, UDRUG, UADIP #### [place] [address] UA Leuk Est Negative Normal Negative [facility] ([place] Comment on above: Performed By: #### P REGU, UDRUG, UADIP #### [place] [address] UA Nitrite Negative Normal Negative [facility] ([place] Comment on above: Performed By: #### P REGU, UDRUG, UADIP #### [address] [address] UA pH 7.0 Normal 5.0 - 8.0 [facility] ([place] Comment on above: Performed By: #### P REGU, UDRUG, UADIP #### [address] [address] UA Protein Negative Normal Negative [facility] ([place] Comment on above: Performed By: #### P REGU, UDRUG, UADIP #### [address] [address] UA Spec Grav 1.020 Normal 1.015-1.025 [facility] ([place] Comment on above: Performed By: #### P REGU, UDRUG, UADIP #### [address] [address] UA Specimen Type Clean Catch Normal [facility] ([place] Comment on above: Performed By: #### P REGU, UDRUG, UADIP #### [address] [address] UA Urobilinogen 0.2 E.U./dL Normal 0.2-1.0 [facility] ([place] Comment on above: Performed By: #### P REGU, UDRUG, UADIP #### [address] [address] Urobilinogen (U) [Mass/Vol] Negative Normal Negative [facility] ([place] Comment on above: Performed By: #### P REGU, UDRUG, UADIP #### [address] [address] .Auto Diffon 09-20-2023 Basophil, Absolute 0.1 10 3/mcL Normal 0.0-0.2 [facility] ([place] Comment on above: Performed By: #### P REGU, UDRUG, UADIP #### [address] [address] Basophils/100 WBC (Bld) 1.0 % Normal 0.0-2.5 [facility] ([place] Comment on above: Performed By: #### P REGU, UDRUG, UADIP #### [address] [address] Eosinophil, Absolute 0.4 10 3/mcL Normal 0.0-0.4 [facility] ([place] Comment on above: Performed By: #### P REGU, UDRUG, UADIP #### [address] [address] Eosinophils/100 WBC (Bld) 3.2 % Normal 0.0-7.0 [facility] ([place] Comment on above: Performed By: #### P REGU, UDRUG, UADIP #### [address] [address] Lymphocyte, Absolute 2.7 10 3/mcL Normal 0.8-3.9 [facility] ([place] Comment on above: Performed By: #### P REGU, UDRUG, UADIP #### [address] [address] Lymphocytes/100 WBC (Bld) 24.1 % Normal 10.0-50.0 [facility] ([place] Comment on above: Performed By: #### P REGU, UDRUG, UADIP #### [address] [address] Monocyte, Absolute 0.7 10 3/mcL Normal 0.2-1.0 [facility] ([place] Comment on above: Performed By: #### P REGU, UDRUG, UADIP #### [address] [address] Monocytes/100 WBC (Bld) 6.6 % Normal 1.7-13.0 [facility] ([place] Comment on above: Performed By: #### P REGU, UDRUG, UADIP #### [address] [address] Neutrophils/100 WBC (Bld) 65.1 % Normal 37.0-80.0 [facility] ([place] Comment on above: Performed By: #### P REGU, UDRUG, UADIP #### [address] [address] .GFRon 09-20-2023 GFR 99 ml/min/1.73sqm Normal [facility] ([place] Comment on above: Result Comment: GFR Population mean for , Non- Americans Ages 20-29 = 116 mL/min/1.73 sq.m. Ages 30-39 = 107 mL/min/1.73 sq.m. Ages 40-49 = 99 mL/min/1.73 sq.m. Ages 50-59 = 93 mL/min/1.73 sq.m. Ages 60-69 = 85 mL/min/1.73 sq.m. Ages 70+ = 75 mL/min/1.73 sq.m. Chronic Kidney Disease: Less than 60 mL/min/1.73 square meters End Stage Renal Disease: Less than 15 mL/min/1.73 square meters Performed By: #### P REGU, UDRUG, UADIP #### [address] [address] GFR Non- 82 ml/min/1.73sqm Normal [facility] ([place] Comment on above: Result Comment: GFR Population mean for , Non- Americans Ages 20-29 = 116 mL/min/1.73 sq.m. Ages 30-39 = 107 mL/min/1.73 sq.m. Ages 40-49 = 99 mL/min/1.73 sq.m. Ages 50-59 = 93 mL/min/1.73 sq.m. Ages 60-69 = 85 mL/min/1.73 sq.m. Ages 70+ = 75 mL/min/1.73 sq.m. Chronic Kidney Disease: Less than 60 mL/min/1.73 square meters End Stage Renal Disease: Less than 15 mL/min/1.73 square meters Performed By: #### P REGU, UDRUG, UADIP #### [address] [address] .MDWon 09-20-2023 Monocyte Distribution Width 20.50 High 0.00-20.00 [facility] ([place] Comment on above: Result Comment: For adults in ED, MDW>20.0 may be associated with a higher risk of sepsis during the first 12hrs of hospital admission Performed By: #### P REGU UDDEBORAH UADIP #### [address] [address] .NEUABSon 09-20-2023 Neutrophil, Absolute 7.2 10 3/mcL High 2.9-6.2 [facility] ([place] Comment on above: Performed By: #### P REGU UDRUG, UADIP #### [place] [address] CBCon 09-20-2023 Erythrocyte distribution width (RBC) [Ratio] 13.6 % Normal 11.5-14.5 [facility] ([place] Comment on above: Performed By: #### P REGU UDRUG, UADIP #### [place] [address] Hematocrit (Bld) [Volume fraction] 37.0 % Normal 37.0-47.0 [facility] ([place] Comment on above: Performed By: #### P REGU UDRUG UADIP #### [place] [address] Hgb 12.3 G/dL Normal 12.0-16.0 [facility] ([place] Comment on above: Performed By: #### P REGU, UDRUG, UADIP #### [place] [address] MCH (RBC) [Entitic mass] 29.8 pg Normal 27.0-31.2 [facility] ([place] Comment on above: Performed By: #### P REGU, UDRUG, UADIP #### [place] [address] MCHC 33.2 G/dL Normal 33.0-37.0 [facility] ([place] Comment on above: Performed By: #### P REGU, UDRUG, UADIP #### [address] [address] MCV (RBC) [Entitic vol] 89.9 fL Normal 80.0-94.0 [facility] ([place] Comment on above: Performed By: #### P REGU, UDRUG, UADIP #### [address] [address] Platelet 230 10 3/mcL Normal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 mmol/L Normal 98-107 [facility] ([place] Comment on above: Performed By: #### U AMICAO, UA, PREGU #### [address] [address] CO2 [Moles/Vol] 29 mmol/L Normal 22-29 [facility] ([place] Comment on above: Performed By: #### U AMICAO, UA, PREGU #### [address] [address] Creatinine [Mass/Vol] 0.92 mg/dL Normal 0.55-1.02 [facility] ([place] Comment on above: Performed By: #### U AMICAO, UA, PREGU #### [address] [address] Electrolyte Balance 5.0 mEq/L Normal 4.0-15.0 [facility] ([place] Comment on above: Performed By: #### U AMICAO, UA, PREGU #### [address] [address] Globulin 3.1 G/dL Normal [facility] ([place] Comment on above: Performed By: #### U AMICAO, UA, PREGU #### [address] [address] Glucose [Mass/Vol] 89 mg/dL Normal 70-105 [facility] [place] Comment [place]: Performed By: #### U AMICAO, UA, PREGU #### [address] [address] Potassium [Moles/Vol] 4.4 mmol/L Normal 3.5-5.1 [facility] ([place] Comment on above: Performed By: #### U AMICAO, UA, PREGU #### [address] [address] Sodium [Moles/Vol] 139 mmol/L Normal 136-145 [facility] [place]: Performed By: #### U AMICAO, UA, PREGU #### [address], [place] [address] Total Protein 6.7 G/dL Normal 6.4-8.2 [facility] ([place] Comment on above: Performed By: #### U STEVE DICKSON, PREGU #### [address] [place], [place] [address] Urea nitrogen [Mass/Vol] 15 mg/dL Normal 7-18 [facility] ([place] Comment on above: Performed By: #### U STEVE DICKSON, PREGU #### [address] [place], [place] [address] CT ABD/PELVIS W/ IV CONTRAST ONLYon 07-21-2023 CT ABD/PELVIS W/ IV CONTRAST ONLY ORIGINAL EXAMINATION: CT OF THE ABDOMEN AND PELVIS WITH DVHVCLEA10/13/2023 5:36 pm TECHNIQUE: CT of the abdomen [...] Sign Date: 07/21/2023 5:47:51 PM Ordering Provider: JENISE Raymond [facility] ([place]) LABORATORYOrdered By: David Costello on 07-21-2023 Appearance (U) Slightly Cloudy *ABN* (07/21/23 4:40 PM) Invalid Interpretation Code Clear AO Auto Urine SS Bacteria LM.HPF (Urine sed) [#/Area] 1 /[HPF] Invalid Interpretation Code AO Auto Urine SS Bilirubin Ql (U) Negative (07/21/23 4:40 PM) Invalid Interpretation Code Negative AO Auto Urine SS Color (U) Yellow (07/21/23 4:40 PM) Invalid Interpretation Code AO Auto Urine SS Glucose Test strip (U) [Mass/Vol] Negative Invalid Interpretation Code Negative AO Auto Urine SS HCG ( test) Ql Negative (07/21/23 4:40 PM) Invalid Interpretation Code AO Manual Urine SS Hemoglobin Auto test strip (U) [Mass/Vol] Trace *ABN* (07/21/23 4:40 PM) Invalid Interpretation Code Negative AO Auto Urine SS Ketones Ql (U) Negative Invalid Interpretation Code Negative AO Auto Urine SS test (u) int Not detected Invalid Interpretation Code AO Manual Urine SS UA Leuk Est Negative (07/21/23 4:40 PM) Invalid Interpretation Code Negative AO Auto Urine SS UA Nitrite Negative (07/21/23 4:40 PM) Invalid Interpretation Code Negative AO Auto Urine SS UA pH 7.0 (07/21/23 4:40 PM) Invalid Interpretation Code 5.0 - 8.0 AO Auto Urine SS UA Protein Negative Invalid Interpretation Code Negative AO Auto Urine SS UA RBC 0-5 /HPF Invalid Interpretation Code None Seen AO Auto Urine SS UA Spec Grav 1.020 (07/21/23 4:40 PM) Invalid Interpretation Code 1.015-1.025 AO Auto Urine SS UA Specimen Type Clean Catch (07/21/23 4:40 PM) Invalid Interpretation Code AO Auto Urine SS UA Squam Epithelial 0-5 /HPF Invalid Interpretation Code None Seen AO Auto Urine SS UA Urobilinogen 0.2 E.U./dL Invalid Interpretation Code 0.2-1.0 AO Auto Urine SS WBC LM.HPF (Urine sed) [#/Area] 0-5 /HPF Invalid Interpretation Code None Seen AO Auto Urine SS LABORATORYOrdered By: SYSTEM SYSTEM on 07-21-2023 Albumin BCP dye [Mass/Vol] 3.6 G/dL Invalid Interpretation Code 3.5 - 5.0 G/dL AO ADM SS Albumin/Globulin [Mass ratio] 1.2 {ratio} Invalid Interpretation Code 1.1 - 2.5 ratio AO ADM SS ALP [Catalytic activity/Vol] 55 U/L Invalid Interpretation Code 40 - 135 U/L AO ADM SS ALT With P-5'-P [Catalytic activity/Vol] 42 U/L Invalid Interpretation Code 14 - 59 U/L AO ADM SS AST With P-5'-P [Catalytic activity/Vol] 22 U/L Invalid Interpretation Code 10 - 40 U/L AO ADM SS Basophil, Absolute 0.0 103/mcL Invalid Interpretation Code 0.0 - 0.2 10^3/mcL AO Workflow SS Basophils/100 WBC (Bld) 0.2 % Invalid Interpretation Code 0.0 - 2.5 % AO Workflow SS Bilirubin [Mass/Vol] 0.2 mg/dL Invalid Interpretation Code 0.2 - 1.0 mg/dL AO ADM SS Comment on above: Interpretive Data: U se of this assay is not recommended for patients undergoing treatment with eltrombopag due to the potential for falsely elevated results. Calcium [Mass/Vol] 8.2 mg/dL Invalid Interpretation Code 8.4 - 10.2 mg/dL AO ADM SS Chloride [Moles/Vol] 105 mmol/L Invalid Interpretation Code 98 - 107 mmol/L AO ADM SS CO2 [Moles/Vol] 29 mmol/L Invalid Interpretation Code 22 - 29 mmol/L AO ADM SS Creatinine [Mass/Vol] 0.92 mg/dL Invalid Interpretation Code 0.55 - 1.02 mg/dL AO ADM SS Electrolyte Balance 5.0 mEq/L Invalid Interpretation Code 4.0 - 15.0 mEq/L AO ADM SS Eosinophil, Absolute 0.3 103/mcL Invalid Interpretation Code 0.0 - 0.4 10^3/mcL AO Workflow SS Eosinophils/100 WBC (Bld) 3.2 % Invalid Interpretation Code 0.0 - 7.0 % AO Workflow SS Erythrocyte distribution width (RBC) [Ratio] 14.6 % Invalid Interpretation Code 11.5 - 14.5 % AO Workflow SS GFR/1.73 sq M.predicted among blacks MDRD (S/P/Bld) [Vol rate/Area] 82 ml/min/1.73sqm Invalid Interpretation Code AO Chemistry S Comment on above: Interpretive Data: GFR Population mean for , Non- Americans Ages 20-29 = 116 mL/min/1.73 sq.m. Ages 30-39 = 107 mL/min/1.73 sq.m. Ages 40-49 = 99 mL/min/1.73 sq.m. Ages 50-59 = 93 mL/min/1.73 sq.m. Ages 60-69 = 85 mL/min/1.73 sq.m. Ages 70+ = 75 mL/min/1.73 sq.m. Chronic Kidney Disease: Less than 60 mL/min/1.73 square meters End Stage Renal Disease: Less than 15 mL/min/1.73 square meters GFR/1.73 sq M.predicted among non-blacks MDRD (S/P/Bld) [Vol rate/Area] 68 ml/min/1.73sqm Invalid Interpretation Code AO Chemistry S Comment on above: Interpretive Data: GFR Population mean for , Non- Americans Ages 20-29 = 116 mL/min/1.73 sq.m. Ages 30-39 = 107 mL/min/1.73 sq.m. Ages 40-49 = 99 mL/min/1.73 sq.m. Ages 50-59 = 93 mL/min/1.73 sq.m. Ages 60-69 = 85 mL/min/1.73 sq.m. Ages 70+ = 75 mL/min/1.73 sq.m. Chronic Kidney Disease: Less than 60 mL/min/1.73 square meters End Stage Renal Disease: Less than 15 mL/min/1.73 square meters Globulin 3.1 G/dL Invalid Interpretation Code AO ADM SS Glucose [Mass/Vol] 89 mg/dL Invalid Interpretation Code 70 - 105 mg/dL AO ADM SS Hematocrit (Bld) [Volume fraction] 37.1 % Invalid Interpretation Code 37.0 - 47.0 % AO Workflow SS Hemoglobin (Bld) [Mass/Vol] 12.3 G/dL Invalid Interpretation Code 12.0 - 16.0 G/dL AO Workflow SS Lipase [Catalytic activity/Vol] U/L 1 Invalid Interpretation Code 16 - 77 U/L AO ADM SS Lymphocyte, Absolute 2.9 103/mcL Invalid Interpretation Code 0.8 - 3.9 10^3/mcL AO Workflow SS Lymphocytes/100 WBC (Bld) 26.9 % Invalid Interpretation Code 10.0 - 50.0 % AO Workflow SS MCH (RBC) [Entitic mass] 30.3 pg Invalid Interpretation Code 27.0 - 31.2 pg AO Workflow SS MCHC 33.3 G/dL Invalid Interpretation Code 33.0 - 37.0 G/dL AO Workflow SS MCV (RBC) [Entitic vol] 91.2 fL Invalid Interpretation Code 80.0 - 94.0 fL AO Workflow SS Monocyte distribution width Auto (Bld) [Entitic vol] 17.71 1 Invalid Interpretation Code 0.00 - 20.00 AO Workflow SS Comment on above: Result Comment: For ED adult patients suspected of sepsis, MDW<=20.0 does not rule out sepsis or risk of sepsis Monocyte, Absolute 0.8 103/mcL Invalid Interpretation Code 0.2 - 1.0 10^3/mcL AO Workflow SS Monocytes/100 WBC (Bld) 8.0 % Invalid Interpretation Code 1.7 - 13.0 % AO Workflow SS Neutrophil, Absolute 6.5 103/mcL Invalid Interpretation Code 2.9 - 6.2 10^3/mcL AO Workflow SS Neutrophils/100 WBC (Bld) 61.7 % Invalid Interpretation Code 37.0 - 80.0 % AO Workflow SS Platelet mean volume (Bld) [Entitic vol] 7.8 fL Invalid Interpretation Code 7.4 - 10.4 fL AO Workflow SS Platelets (Bld) [#/Vol] 240 103/mcL Invalid Interpretation Code 130 - 400 10^3/mcL AO Workflow SS Potassium [Moles/Vol] 4.4 mmol/L Invalid Interpretation Code 3.5 - 5.1 mmol/L AO ADM SS Protein [Mass/Vol] 6.7 G/dL Invalid Interpretation Code 6.4 - 8.2 G/dL AO ADM SS RBC (Bld) [#/Vol] 4.07 106/mcL Invalid Interpretation Code 4.20 - 5.40 10^6/mcL AO Workflow SS Sodium [Moles/Vol] 139 mmol/L Invalid Interpretation Code 136 - 145 mmol/L AO ADM SS Urea nitrogen [Mass/Vol] 15 mg/dL Invalid Interpretation Code 7 - 18 mg/dL AO ADM SS Urea nitrogen/Creatinine [Mass ratio] 16 ratio Invalid Interpretation Code 7 - 27 ratio AO ADM SS WBC (Bld) [#/Vol] 10.6 103/mcL Invalid Interpretation Code 4.6 - 10.8 10^3/mcL AO Workflow SS LIPon 07-21-2023 Lipase Level <10 Low 16-77 [facility] ([place]) Comment on above: Performed By: #### U AMICAO, UA, PREGU #### [place] [id number] PREGUon 07-21-2023 HCG ( test) Ql (U) Negative Normal [facility] ([place] Comment on above: Performed By: #### U AMICAO, UA, PREGU #### [place] [address] test (u) int Not detected Invalid Interpretation Code [facility] ([place] Comment on above: Performed By: #### U AMICAO, UA, PREGU #### [place] [address] UAon 07-21-2023 Color (U) Yellow Normal [facility] ([place] Comment on above: Performed By: #### U AMICAO, UA, PREGU #### [place] [address] Glucose (U) [Mass/Vol] Negative Normal Negative [facility] ([place] Comment on above: Performed By: #### U AMICAO, UA, PREGU #### [place] [address] Ketones Ql (U) Negative Normal Negative [facility] ([place] Comment on above: Performed By: #### U AMICAO, UA, PREGU #### [address] [address] UA Appear Slightly Cloudy Abnormal Clear [facility] ([place] Comment on above: Performed By: #### U AMICAO, UA, PREGU #### [address] [address] UA Blood Trace Abnormal Negative [facility] ([place] Comment on above: Performed By: #### U AMICAO, UA, PREGU #### [address] [address] UA Leuk Est Negative Normal Negative [facility] ([place] Comment on above: Performed By: #### U AMICAO, UA, PREGU #### [place] [address] UA Nitrite Negative Normal Negative [facility] ([place] Comment on above: Performed By: #### U AMICAO, UA, PREGU #### [place] [address] UA pH 7.0 Normal 5.0 - 8.0 [facility] ([place] Comment on above: Performed By: #### U AMICAO, UA, PREGU #### [place] [address] UA Protein Negative Normal Negative [facility] ([place] Comment on above: Performed By: #### U AMICAO, UA, PREGU #### [place] [address] UA Spec Grav 1.020 Normal 1.015-1.025 [facility] ([place] Comment on above: Performed By: #### U AMICAO, UA, PREGU #### [place] [address] UA Specimen Type Clean Catch Normal [facility] ([place] Comment on above: Performed By: #### U AMICAO, UA, PREGU #### [place] [address] UA Urobilinogen 0.2 E.U./dL Normal 0.2-1.0 [facility] ([place] Comment on above: Performed By: #### U AMICAO, UA, PREGU #### [place] [address] Urobilinogen (U) [Mass/Vol] Negative Normal Negative [facility] ([place] Comment on above: Performed By: #### U AMICAO, UA, PREGU #### [place] [address] EMERGENCY REPORTon 2 EMERGENCY REPORT [facility] EMERGENCY ROOM REPORT NAME ACCOUNT SEX AGE ADMIT DISCHARGE PT MED. RECORD# NUMBER DATE DATE TYPE THANIA [id number] Marlon 37 09/25/22 09/25/22 3 CAROLINA Crystal [id number] ROOM: ER DATE OF : 1985 DICTATING PHYSICIAN: Dorian Delgado CHIEF COMPLAINT: Knee pain. HISTORY OF PRESENT ILLNESS: The patient states last night she slipped on some ice and fell falling down onto cement. She bumped her right lower leg where she has a small bruise, but fell down directly on her left knee. She sustained an abrasion, but today it seems to be significantly more painful, swollen, and red. She is able to walk, though with pain. No fever or chills. No other injuries or complaints. PAST MEDICAL HISTORY: Past medical history is significant for bipolar disorder. She has had some previous skin cancers. PAST SURGICAL HISTORY: Other surgeries per surgery list. MEDICATIONS: Per med rec list. SOCIAL HISTORY: She lives at home. She does not smoke or drink alcohol. PHYSICAL EXAMINATION: GENERAL: This is a pleasant 37-year-old female alert, appropriate, and does not appear toxic or in acute distress. SKIN: Her skin is warm and dry. VITAL SIGNS: Essentially all within normal limits. EXTREMITIES: Exam is focused to the lower extremities. She has a small bruise to the anterior aspect of her lower leg over the tibia with just minimal swelling, superficial scab. She does have about a quarter sized abrasion right over the anterior aspect of the left patella that is scabbed over. There is a surrounding area of redness that is about tennis ball sized, and is quite reddened and tender. It is slightly warm, not indurated. There is no purulent drainage or area of a pustular such. No appreciable joint swelling that I can appreciate. No other areas of pain or swelling. Good peripheral pulses. Good capillary refill. DIAGNOSTIC DATA: X-ray, per my reading, was negative. EMERGENCY DEPARTMENT COURSE AND TREATMENT: It does appear that she probably has some degree of secondary infection to this, so I felt that treating with antibiotics would be appropriate. DIAGNOSIS: Knee contusion with abrasion. Page 1 of 2 CAROLINA MONTEIRO Emergency Room Report CAROLINA MONTEIRO : 1985 PLAN/DISPOSITION: She was given Bactrim DS orally to take and a prescription for the same and ibuprofen 600 to 800 mg 3 times a day. She is to limit activity and weightbearing over the next 24 hours. She is to return if she has worsening pain, redness, or fever. Otherwise, she is to followup with her family doctor within the next 1 to 2 weeks. I did give a slip to be off work through tomorrow. Dictated By: Dorian Delgado MD 09/25/22 17:20 JOB #: [id number] Transcribed By: am 09/26/22 10:33 Electronically signed by: RICARDO Delgado M.D. 09/30/22 07:09 Page 2 of 2 CAROLINA MONTEIRO Emergency Room Report Normal [facility] KNEE COMPLETE LT MIN 4 VIEWS on 09-25-2022 KNEE COMPLETE LT MIN 4 VIEWS [place] [address] Patient: CAROLINA MONTEIRO. Phone#: : [phone] Age: 37 Gender: M Pt. Type: ER Account: [id number] Location: [facility] Ordering: DORIAN DELGADO Exam Date: 09/25/2022/14:57 Family Phys: Charge Code: 307122 Physician: Carroll Order #: [id number] Dose#: PROCEDURE: X-RAY KNEE LT COMPLETE 4 VIEWS COMPARISON: None. INDICATIONS: Fall FINDINGS: BONES: Normal. No significant arthropathy or acute abnormality. SOFT TISSUES: Negative. No visible soft tissue swelling. EFFUSION: None visible. OTHER: Negative. CONCLUSION: No acute disease. Dictated by: Graciela Fritz MD on 09/25/2022 at 19:55 Approved by: Graciela Fritz MD on 09/25/2022 at 19:57 Normal [facility] LABORATORYOrdered By: Imer Bueno on 07-17-2022 Appearance (U) Clear (07/17/22 7:17 PM) Invalid Interpretation Code Clear AO Auto Urine SS Bilirubin Ql (U) Negative (07/17/22 7:17 PM) Invalid Interpretation Code Negative AO Auto Urine SS Color (U) Yellow (07/17/22 7:17 PM) Invalid Interpretation Code AO Auto Urine SS Glucose Test strip (U) [Mass/Vol] Negative Invalid Interpretation Code Negativemg/dL AO Auto Urine SS HCG ( test) Ql Negative (07/17/22 7:17 PM) Invalid Interpretation Code AO Manual Urine SS Hemoglobin Auto test strip (U) [Mass/Vol] Trace *ABN* (07/17/22 7:17 PM) Invalid Interpretation Code Negative AO Auto Urine SS Ketones Ql (U) Negative Invalid Interpretation Code Negativemg/dL AO Auto Urine SS test (u) int Not detected Invalid Interpretation Code AO Manual Urine SS UA Leuk Est Negative (07/17/22 7:17 PM) Invalid Interpretation Code Negative AO Auto Urine SS UA Nitrite Negative (07/17/22 7:17 PM) Invalid Interpretation Code Negative AO Auto Urine SS UA pH 6.0 (07/17/22 7:17 PM) Invalid Interpretation Code 5.0 - 8.0 AO Auto Urine SS UA Protein Negative Invalid Interpretation Code Negativemg/dL AO Auto Urine SS UA Spec Grav >=1.030 *ABN* (07/17/22 7:17 PM) Invalid Interpretation Code 1.015-1.025 AO Auto Urine SS UA Specimen Type Clean Catch (07/17/22 7:17 PM) Invalid Interpretation Code AO Auto Urine SS UA Urobilinogen 0.2 E.U./dL Invalid Interpretation Code 0.2-1.0E.U./d L AO Auto Urine SS Albumin BCP dye [Mass/Vol] 3.5 G/dL Invalid Interpretation Code 3.5 - 5.0 G/dL AO ADM SS Albumin/Globulin [Mass ratio] 1.2 {ratio} Invalid Interpretation Code 1.1 - 2.5 ratio AO ADM SS ALP [Catalytic activity/Vol] 63 U/L Invalid Interpretation Code 40 - 135 U/L AO ADM SS ALT With P-5'-P [Catalytic activity/Vol] 30 U/L Invalid Interpretation Code 14 - 59 U/L AO ADM SS AST With P-5'-P [Catalytic activity/Vol] 14 U/L Invalid Interpretation Code 10 - 40 U/L AO ADM SS Basophil, Absolute 0.1 103/mcL Invalid Interpretation Code 0.0 - 0.2 10^3/mcL AO Workflow SS Basophils/100 WBC (Bld) 1.2 % Invalid Interpretation Code 0.0 - 2.5 % AO Workflow SS Bilirubin [Mass/Vol] 0.1 mg/dL Invalid Interpretation Code 0.2 - 1.0 mg/dL AO ADM SS Calcium [Mass/Vol] 8.3 mg/dL Invalid Interpretation Code 8.4 - 10.2 mg/dL AO ADM SS Chloride [Moles/Vol] 108 mmol/L Invalid Interpretation Code 98 - 107 mmol/L AO ADM SS CO2 [Moles/Vol] 28 mmol/L Invalid Interpretation Code 22 - 29 mmol/L AO ADM SS Creatinine [Mass/Vol] 0.77 mg/dL Invalid Interpretation Code 0.55 - 1.02 mg/dL AO ADM SS Electrolyte Balance 9.0 mEq/L Invalid Interpretation Code 4.0 - 15.0 mEq/L AO ADM SS Eosinophil, Absolute 0.2 103/mcL Invalid Interpretation Code 0.0 - 0.4 10^3/mcL AO Workflow SS Eosinophils/100 WBC (Bld) 2.7 % Invalid Interpretation Code 0.0 - 7.0 % AO Workflow SS Erythrocyte distribution width (RBC) [Ratio] 15.2 % Invalid Interpretation Code 11.5 - 14.5 % AO Workflow SS Globulin 2.9 G/dL Invalid Interpretation Code AO ADM SS Glucose [Mass/Vol] 103 mg/dL Invalid Interpretation Code 70 - 105 mg/dL AO ADM SS Hematocrit (Bld) [Volume fraction] 34.8 % Invalid Interpretation Code 37.0 - 47.0 % AO Workflow SS Hemoglobin (Bld) [Mass/Vol] 11.7 G/dL Invalid Interpretation Code 12.0 - 16.0 G/dL AO Workflow SS Lipase [Catalytic activity/Vol] 27 U/L Invalid Interpretation Code 73 - 393 U/L AO ADM SS Lymphocyte, Absolute 2.3 103/mcL Invalid Interpretation Code 0.8 - 3.9 10^3/mcL AO Workflow SS Lymphocytes/100 WBC (Bld) 28.8 % Invalid Interpretation Code 10.0 - 50.0 % AO Workflow SS MCH (RBC) [Entitic mass] 30.9 pg Invalid Interpretation Code 27.0 - 31.2 pg AO Workflow SS MCHC 33.7 G/dL Invalid Interpretation Code 33.0 - 37.0 G/dL AO Workflow SS MCV (RBC) [Entitic vol] 91.7 fL Invalid Interpretation Code 80.0 - 94.0 fL AO Workflow SS Monocyte distribution width Auto (Bld) [Entitic vol] 17.53 Invalid Interpretation Code 0.00 - 20.00 AO Workflow SS Comment on above: Result Comment: For ED adult patients suspected of sepsis, MDW<=20.0 does not rule out sepsis or risk of sepsis Monocyte, Absolute 0.8 103/mcL Invalid Interpretation Code 0.2 - 1.0 10^3/mcL AO Workflow SS Monocytes/100 WBC (Bld) 10.8 % Invalid Interpretation Code 1.7 - 13.0 % AO Workflow SS Neutrophil, Absolute 4.4 103/mcL Invalid Interpretation Code 2.9 - 6.2 10^3/mcL AO Workflow SS Neutrophils/100 WBC (Bld) 56.5 % Invalid Interpretation Code 37.0 - 80.0 % AO Workflow SS Platelet mean volume (Bld) [Entitic vol] 7.9 fL Invalid Interpretation Code 7.4 - 10.4 fL AO Workflow SS Platelets (Bld) [#/Vol] 217 103/mcL Invalid Interpretation Code 130 - 400 10^3/mcL AO Workflow SS Potassium [Moles/Vol] 3.7 mmol/L Invalid Interpretation Code 3.5 - 5.1 mmol/L AO ADM SS Protein [Mass/Vol] 6.4 G/dL Invalid Interpretation Code 6.4 - 8.2 G/dL AO ADM SS RBC (Bld) [#/Vol] 3.79 106/mcL Invalid Interpretation Code 4.20 - 5.40 10^6/mcL AO Workflow SS Sodium [Moles/Vol] 145 mmol/L Invalid Interpretation Code 136 - 145 mmol/L AO ADM SS Urea nitrogen [Mass/Vol] 11 mg/dL Invalid Interpretation Code 7 - 18 mg/dL AO ADM SS Urea nitrogen/Creatinine [Mass ratio] 14 ratio Invalid Interpretation Code 7 - 27 ratio AO ADM SS WBC (Bld) [#/Vol] 7.8 103/mcL Invalid Interpretation Code 4.6 - 10.8 10^3/mcL AO Workflow SS LABORATORYOrdered By: SYSTEM SYSTEM on 07-17-2022 GFR 101 ml/min/1.73sqm Invalid Interpretation Code AO Chemistry S GFR Non- 83 ml/min/1.73sqm Invalid Interpretation Code AO Chemistry S EMERGENCY REPORTon 2 EMERGENCY REPORT [facility] EMERGENCY ROOM REPORT NAME ACCOUNT SEX AGE ADMIT DISCHARGE PT MED. RECORD# NUMBER DATE DATE TYPE THANIA [id number] M 37 06/18/22 06/18/22 3 CAROLINA Rojas [id number] ROOM: ER DATE OF : 1985 DICTATING PHYSICIAN: Mariely Camacho HISTORY OF PRESENT ILLNESS: This is a 37-year-old female with a history of IBS presents to the emergency department with concerns for abdominal pain and bloating. The patient reports that she has had intermittent constipation and diarrhea for a while given her diagnosis of IBS and intermittently becomes bloated with a lot of gas. However, today it has been worse than prior. She has had severe bloating for the last 2 hours. She did not eat anything differently. She continues to pass gas, and a lot of it. She has not had any nausea or vomiting. She had a normal bowel movements at around 3 p.m., but no other symptoms. She does have this abdominal pain, which is diffuse mostly on the upper quadrants, and she describes the pain/bloating as pressure like. There is no radiation of her pain. It is 8/10 in severity. No alleviating or exacerbating factors have been identified. She has not attempted to take anything for this at home. She is here with her and both children, none of which are having any symptoms. No known ill contacts. She also denies any chest pain, shortness of breath, fever or chills, rashes, headache, cough, runny nose, dysuria, or hematuria. She has irregular periods, and her last menstrual period was 2 weeks ago. She thinks she is getting closer to perimenopausal. She took a test at home yesterday just to please her family, which was negative. PAST MEDICAL HISTORY: IBS. PAST SURGICAL HISTORY: She has had a prior cholecystectomy. FAMILY HISTORY: Not significant. SOCIAL HISTORY: The patient denies any drugs, alcohol, or smoking. REVIEW OF SYSTEMS: A complete 10 point review of systems was performed and negative except per HPI. PHYSICAL EXAMINATION: GENERAL APPEARANCE: The patient appears in no acute distress, lying comfortably in bed. HEENT: PERRLA. No signs of congestion. Cranial nerves are grossly intact. EXTREMITIES: Moving all extremities spontaneously. ABDOMEN: Abdomen is tympanic, increased bowel sounds, mildly, but diffusely tender to palpation. No guarding. CHEST: Clear to auscultation bilaterally. No wheezes or rales. HEART: Regular rate and rhythm. No murmurs appreciated. NEUROLOGIC: Alert and oriented, acting appropriate for situation. Normal gait and ambulation. Page 1 of 3 CAROLINA MONTEIRO Emergency Room Report CAROLINA MONTEIRO : 1985 PSYCHIATRIC: Normal mood and behavior. DIAGNOSTIC DATA: Laboratory work demonstrated anemia with a hemoglobin of 12.1 No leukocytosis. Her CMP was significant for normal electrolytes and renal function. Calcium is low at 7.9. Normal liver function and lipase. We do not have the capabilities to do an ionized calcium at this hospital; therefore, I started treating with oral calcium for now. Her urinalysis demonstrated trace blood and leukocytes, negative nitrites. Bacteria with many epithelial cells, likely contamination. No symptoms of a UTI. We did a KUB to evaluate for gas pattern, which demonstrated a large stool burden. No impacted stool at the rectal vault. Normal bowel gas pattern. MEDICAL DECISION MAKING/EMERGENCY DEPARTMENT COURSE AND TREATMENT: This is an otherwise healthy 37-year-old female with known history of irritable bowel syndrome presents to the emergency department with bloating and diffuse abdominal pain. Upon arrival, the patient appears in no acute distress. Her vital signs are stable. She is not tachycardic or febrile. Her exam is reassuring; however, she does have a distended tympanic abdomen. Given that she continues to have bowel movements and a lot of gas, low suspicion for a bowel obstruction or another intraabdominal catastrophe. We have spoken about risks and benefits of a CT scan, and the patient agrees to forego a CT scan at this time. The patient was treated here with Toradol and simethicone for gas pain. She also requested her home [facility] for anxiety. PLAN/DISPOSITION: The patient is being discharged with return precautions and a more rigorous bowel regimen. She had been taking MiraLAX once a day intermittently. I have recommended that she takes MiraLAX twice a day, as well as Colace twice a day, that she increases her water intake to 3 to 4 liters a day. I have also given her a prescription for simethicone for gas pain and calcium for replacement. I have advised her that her calcium was low and that she should followup with her doctor next week. I have also provided return precautions of when to return to the emergency department if this pain gets worse, if she stops passing gas, or is unable to defecate, or if she develops signs of a UTI because that is a possible complication of (more content not included)... Normal [facility] ABDOMEN 1 VIEWon 06-19-2022 ABDOMEN 1 VIEW [place] [address] Patient: CAROLINA MONTEIRO Phone#: : 1985 Age: 37 Gender: M Pt. Type: ER Account: [id number] Location: [facility] Ordering: DR. MARIELY CAMACHO Exam Date: 06/18/2022/22:15 Family Phys: Charge Code: [id number] Physician: Carroll Order #: [id number] DLP Dose#: PROCEDURE: ABDOMEN 1 VIEW COMPARISON: None. INDICATIONS: Abdominal pain. FINDINGS: BOWEL GAS PATTERN: Large volume stool retention is present proximally. Surgical clips are present in the right upper abdomen. No abnormal dilation or deviation. CALCIFICATIONS: None significant. OTHER: Jewelry artifact is present overlying the lower lumbar spine.. No abnormal gaseous collections. CONCLUSION: 1. Large volume stool retention is present proximally. Dictated by: Graciela Fritz MD on 06/19/2022 at 11:33 Approved by: Graciela Fritz MD on 06/19/2022 at 11:34 Normal [facility] CBC + DIFFon 06-19-2022 Baso # 0.10 x10EE3/UL Normal 0.00 - 0.10 [facility] Comment on above: Performed By: #### 2 [id number] #### [facility],[address] [place], [place] [id number] Basophils/100 WBC (Bld) 1.0 % Normal 0.0 - 2.0 [facility] Comment on above: Performed By: #### 2 32974 #### [facility],[address] [place] [address] 70875 CBC + DIFF Normal [facility] Comment on above: Result Comment: CBC- COMPLETE BLOOD COUNT Performed By: #### 2 73069 #### [facility],[address] [place] [address] 52971 EO # 0.40 x10EE3/UL Normal 0.00 - 0.50 [facility] Comment on above: Performed By: #### 2 10810 #### [facility],[address] [place] [address] 32492 Eosinophils/100 WBC (Bld) 4.4 % Normal 0.0 - 7.0 [facility] Comment on above: Performed By: #### 2 24142 #### [facility],[address] [place] [address] Erythrocyte distribution width (RBC) [Ratio] 15.2 % Normal 12.0 - 15.6 [facility] Comment on above: Performed By: #### 2 09456 #### [facility],[address] [place] [address] Hematocrit (Bld) [Volume fraction] 36.4 % Low 40.0 - 52.0 [facility] Comment on above: Performed By: #### 2 10239 #### [facility],[address] [place] [address] Hemoglobin (Bld) [Mass/Vol] 12.1 g/dL Low 13.0 - 17.5 [facility] Comment on above: Performed By: #### 2 28890 #### [facility],[address] [place] [address] 79662 Lymph # 2.10 x10EE3/UL Normal 0.80 - 2.80 [facility] Comment on above: Performed By: #### 2 58670 #### [facility],[address] [place] [address] 67642 Lymphocytes/100 WBC (Bld) 24.8 % Normal 20.0 - 45.0 [facility] Comment on above: Performed By: #### 2 46914 #### [facility],[address] [place], [place] [id number] MANUAL DIFF N/A Normal [facility] Comment on above: Performed By: #### 2 76370 #### [facility],[address] [place] [address] 95535 MCH (RBC) [Entitic mass] 31 pg Normal 27 - 33 [facility] Comment on above: Performed By: #### 2 65612 #### [facility],[address] [place] [address] 50898 MCHC 33 X10 3 Normal 32 - 36 [facility] Comment on above: Performed By: #### 2 12592 #### [facility],[address] [place] [address] 89879 MCV (RBC) [Entitic vol] 93 fL Normal 81 - 98 [facility] Comment on above: Performed By: #### 2 42412 #### [facility],[address] [place] [address] [place] # 0.70 x10EE3/UL Normal 0.20 - 1.00 [facility] Comment on above: Performed By: #### 2 12637 #### [facility],[address] [place] [address] 76520 MONOS % 8.7 % Normal 0.0 - 10.0 [facility] Comment on above: Performed By: #### 2 59526 #### [facility],[address] [place] [address] 18222 Morphology [place] (Bld) [Interp] N/A Normal [facility] Comment on above: Result Comment: {CD] Performed By: #### 2 18598 #### [facility],[address] [place] [address] Neut # 5.20 x10EE3/UL Normal 1.50 - 7.10 [facility] Comment on above: Performed By: #### 2 09690 #### [facility],[address] [place], [place] [id number] Neutrophils/100 WBC (Bld) 61.1 % Normal 46.0 - 76.0 [facility] Comment on above: Performed By: #### 2 62385 #### [facility],[address] [place] [address] 66859 PLATELET 242 x10EE3/UL Normal 150 - 450 [facility] Comment on above: Performed By: #### 2 38647 #### [facility],[address] [place] [address] 19153 Platelet mean volume (Bld) [Entitic vol] 7.5 fL Normal 6.4 - 10.5 [facility] Comment on above: Result Comment: AUTO MATED DIFFERENTIAL Performed By: #### 2 64271 #### [facility],[address] [place] [address] 23291 RBC 3.91 x 10EE6/UL Low 4.50 - 6.00 [facility] Comment on above: Performed By: #### 2 93131 #### [facility],[address] [place] [address] 00455 WBC 8.5 x 10EE3/UL Normal 4.5 - 10.8 [facility] Comment on above: Performed By: #### 2 43610 #### [facility],[address] [place] [address] 13224 CMP with eGFRon 06-19-2022 AGE 37 years Normal [facility] Comment on above: Performed By: #### 2 15370 #### [facility],[address] [place] [address] 36134 Albumin [Mass/Vol] 3.3 g/dL Low 3.4 - 5.0 [facility] Comment on above: Performed By: #### 2 82976 #### [facility],[address] [place] [address] 19863 Albumin/Globulin [Mass ratio] 0.9 {ratio} Normal 0.9 - 1.6 [facility] Comment on above: Performed By: #### 2 68526 #### [facility],[address] [place] [address] 23229 ALK PHOS 60 U/L Normal 46 - 116 [facility] Comment on above: Performed By: #### 2 24469 #### [facility],[address] [place] [address] 81603 ALT [Catalytic activity/Vol] 18 U/L Normal 16 - 63 [facility] Comment on above: Performed By: #### 2 50843 #### [facility],[address] [place] [address] 05974 Anion gap [Moles/Vol] 12 mmol/L Normal 10 - 20 [facility] Comment on above: Performed By: #### 2 07345 #### [facility],[address] [place] [address] AST [Catalytic activity/Vol] 13 U/L Low 15 - 37 [facility] Comment on above: Performed By: #### 2 95137 #### [facility],[address] [place] [address] B/C RATIO 19 ratio Normal 0 - 30 [facility] Comment on above: Performed By: #### 2 92161 #### [facility],[address] [place] [address] 92747 Bilirubin [Mass/Vol] 0.1 mg/dL Low 0.2 - 1.0 [facility] Comment on above: Performed By: #### 2 99942 #### [facility],[address] [place] [address] 06838 Calcium [Mass/Vol] 7.9 mg/dL Low 8.5 - 10.1 [facility] Comment on above: Performed By: #### 2 50553 #### [facility],[address] [place] [address] 78661 Chloride [Moles/Vol] 106 mmol/L Normal 98 - 107 [facility] Comment on above: Performed By: #### 2 56000 #### [facility],[address] [place] [address] 57151 CMP with eGFR Normal [facility] Comment on above: Result Comment: COMP REHENSIVE METABOLIC PANEL Performed By: #### 2 26667 #### [facility],[address] [place] [address] 95878 CO2 [Moles/Vol] 26.6 mmol/L Normal 21.0 - 32.0 [facility] Comment on above: Performed By: #### 2 38609 #### [facility],[address] [place] [address] 83922 Creatinine [Mass/Vol] 0.79 mg/dL Normal 0.70 - 1.30 [facility] Comment on above: Performed By: #### 2 72998 #### [facility],[address] [place] [address] 47557 GFR/1.73 sq M.predicted among non-blacks MDRD (S/P/Bld) [Vol rate/Area] mL/min/{1.73_m2} Normal 60 - 999 [facility] Comment on above: Performed By: #### 2 36508 #### [facility],[address] [place], [place] [id number] Result Comment: ACCO RDING TO THE NATIONAL KIDNEY DISEASE EDUCATION PROGRAM(NKDE), A NORMAL eGFR IS A VALUE GREATER THAN OR EQUAL TO 60 ML/MIN/1.73 SQ METERS. CHRONIC KIDNEY DISEASE: <60mL/MIN/1.73 SQ METERS KIDNEY FAILURE: <15mL/MIN/1.73 SQ METERS THIS TEST SHOULD ONLY BE USED FOR PATIENTS 18 YEARS OF AGE AND OLDER. Globulin (S) [Mass/Vol] 3.8 g/dL Normal 1.5 - 3.8 [facility] Comment on above: Performed By: #### 2 43523 #### [facility],[address] [place] [address] 61980 Glucose [Mass/Vol] 131 mg/dL High 74 - 106 [facility] Comment on above: Performed By: #### 2 52560 #### [facility],[address] [place] [address] 96573 Potassium [Moles/Vol] 4.3 mmol/L Normal 3.5 - 5.1 [facility] Comment on above: Performed By: #### 2 19839 #### [facility],[address] [place] [address] 44433 Protein [Mass/Vol] 7.1 g/dL Normal 6.4 - 8.2 [facility] Comment on above: Performed By: #### 2 05909 #### [facility],[address] [place] [address] 81351 Sodium [Moles/Vol] 140 mmol/L Normal 136 - 145 [facility] Comment on above: Performed By: #### 2 54644 #### [facility],[address] [place], [place] [id number] Urea nitrogen [Mass/Vol] 15 mg/dL Normal 7 - 18 [facility] Comment on above: Performed By: #### 2 33574 #### [facility],[address] [place] [address] 84746 LABORATORYOrdered By: Imer Delacruz on 06-19-2022 Albumin BCP dye [Mass/Vol] 3.6 G/dL Invalid Interpretation Code 3.5 - 5.0 G/dL AO ADM SS Albumin/Globulin [Mass ratio] 1.0 {ratio} Invalid Interpretation Code 1.1 - 2.5 ratio AO ADM SS ALP [Catalytic activity/Vol] 65 U/L Invalid Interpretation Code 40 - 135 U/L AO ADM SS ALT With P-5'-P [Catalytic activity/Vol] 30 U/L Invalid Interpretation Code 14 - 59 U/L AO ADM SS Appearance (U) Slightly Cloudy *ABN* (06/19/22 2:57 PM) Invalid Interpretation Code Clear AO Auto Urine SS AST With P-5'-P [Catalytic activity/Vol] 27 U/L Invalid Interpretation Code 10 - 40 U/L AO ADM SS Bacteria LM.HPF (Urine sed) [#/Area] 2 /[HPF] Invalid Interpretation Code AO Auto Urine SS Basophil, Absolute 0.1 103/mcL Invalid Interpretation Code 0.0 - 0.2 10^3/mcL AO Workflow SS Basophils/100 WBC (Bld) 0.8 % Invalid Interpretation Code 0.0 - 2.5 % AO Workflow SS Bilirubin [Mass/Vol] 0.2 mg/dL Invalid Interpretation Code 0.2 - 1.0 mg/dL AO ADM SS Bilirubin Ql (U) Negative (06/19/22 2:57 PM) Invalid Interpretation Code Negative AO Auto Urine SS Calcium [Mass/Vol] 8.4 mg/dL Invalid Interpretation Code 8.4 - 10.2 mg/dL AO ADM SS Chloride [Moles/Vol] 104 mmol/L Invalid Interpretation Code 98 - 107 mmol/L AO ADM SS CO2 [Moles/Vol] 32 mmol/L Invalid Interpretation Code 22 - 29 mmol/L AO ADM SS Color (U) Yellow (06/19/22 2:57 PM) Invalid Interpretation Code AO Auto Urine SS Creatinine [Mass/Vol] 0.73 mg/dL Invalid Interpretation Code 0.55 - 1.02 mg/dL AO ADM SS Crystals.amorphous LM.HPF (Urine sed) [#/Area] 2 /[HPF] Invalid Interpretation Code AO Auto Urine SS Electrolyte Balance 5.0 mEq/L Invalid Interpretation Code 4.0 - 15.0 mEq/L AO ADM SS Eosinophil, Absolute 0.3 103/mcL Invalid Interpretation Code 0.0 - 0.4 10^3/mcL AO Workflow SS Eosinophils/100 WBC (Bld) 4.1 % Invalid Interpretation Code 0.0 - 7.0 % AO Workflow SS Erythrocyte distribution width (RBC) [Ratio] 15.2 % Invalid Interpretation Code 11.5 - 14.5 % AO Workflow SS Globulin 3.5 G/dL Invalid Interpretation Code AO ADM SS Glucose [Mass/Vol] 94 mg/dL Invalid Interpretation Code 70 - 105 mg/dL AO ADM SS Glucose Test strip (U) [Mass/Vol] Negative Invalid Interpretation Code Negativemg/dL AO Auto Urine SS HCG ( test) Ql Negative (06/19/22 2:57 PM) Invalid Interpretation Code AO Manual Urine SS Hematocrit (Bld) [Volume fraction] 36.8 % Invalid Interpretation Code 37.0 - 47.0 % AO Workflow SS Hemoglobin (Bld) [Mass/Vol] 12.3 G/dL Invalid Interpretation Code 12.0 - 16.0 G/dL AO Workflow SS Hemoglobin Auto test strip (U) [Mass/Vol] Trace *ABN* (9/11/22 2:57 PM) Invalid Interpretation Code Negative AO Auto Urine SS Ketones Ql (U) Negative Invalid Interpretation Code Negativemg/dL AO Auto Urine SS Lipase [Catalytic activity/Vol] 25 U/L Invalid Interpretation Code 73 - 393 U/L AO ADM SS Lymphocyte, Absolute 2.3 103/mcL Invalid Interpretation Code 0.8 - 3.9 10^3/mcL AO Workflow SS Lymphocytes/100 WBC (Bld) 28.3 % Invalid Interpretation Code 10.0 - 50.0 % AO Workflow SS MCH (RBC) [Entitic mass] 30.8 pg Invalid Interpretation Code 27.0 - 31.2 pg AO Workflow SS MCHC 33.5 G/dL Invalid Interpretation Code 33.0 - 37.0 G/dL AO Workflow SS MCV (RBC) [Entitic vol] 91.7 fL Invalid Interpretation Code 80.0 - 94.0 fL AO Workflow SS Monocyte distribution width Auto (Bld) [Entitic vol] 17.81 Invalid Interpretation Code 0.00 - 20.00 AO Workflow SS Comment on above: Result Comment: For ED adult patients suspected of sepsis, MDW<=20.0 does not rule out sepsis or risk of sepsis Monocyte, Absolute 0.7 103/mcL Invalid Interpretation Code 0.2 - 1.0 10^3/mcL AO Workflow SS Monocytes/100 WBC (Bld) 8.1 % Invalid Interpretation Code 1.7 - 13.0 % AO Workflow SS Neutrophil, Absolute 4.8 103/mcL Invalid Interpretation Code 2.9 - 6.2 10^3/mcL AO Workflow SS Neutrophils/100 WBC (Bld) 58.7 % Invalid Interpretation Code 37.0 - 80.0 % AO Workflow SS Platelet mean volume (Bld) [Entitic vol] 7.3 fL Invalid Interpretation Code 7.4 - 10.4 fL AO Workflow SS Platelets (Bld) [#/Vol] 242 103/mcL Invalid Interpretation Code 130 - 400 10^3/mcL AO Workflow SS Potassium [Moles/Vol] 4.3 mmol/L Invalid Interpretation Code 3.5 - 5.1 mmol/L AO ADM SS test (u) int Not detected Invalid Interpretation Code AO Manual Urine SS Protein [Mass/Vol] 7.1 G/dL Invalid Interpretation Code 6.4 - 8.2 G/dL AO ADM SS RBC (Bld) [#/Vol] 4.02 106/mcL Invalid Interpretation Code 4.20 - 5.40 10^6/mcL AO Workflow SS Sodium [Moles/Vol] 141 mmol/L Invalid Interpretation Code 136 - 145 mmol/L AO ADM SS UA Leuk Est Small *ABN* (06/19/22 2:57 PM) Invalid Interpretation Code Negative AO Auto Urine SS UA Nitrite Negative (06/19/22 2:57 PM) Invalid Interpretation Code Negative AO Auto Urine SS UA pH 8.0 (06/19/22 2:57 PM) Invalid Interpretation Code 5.0 - 8.0 AO Auto Urine SS UA Protein Negative Invalid Interpretation Code Negativemg/dL AO Auto Urine SS UA RBC 0-5 /HPF Invalid Interpretation Code None Seen/HPF AO Auto Urine SS UA Spec Grav 1.020 (06/19/22 2:57 PM) Invalid Interpretation Code 1.015-1.025 AO Auto Urine SS UA Specimen Type Clean Catch (06/19/22 2:57 PM) Invalid Interpretation Code AO Auto Urine SS UA Squam Epithelial 5-10 /HPF Invalid Interpretation Code None Seen/HPF AO Auto Urine SS UA Urobilinogen 0.2 E.U./dL Invalid Interpretation Code 0.2-1.0E.U./d L AO Auto Urine SS Urea nitrogen [Mass/Vol] 12 mg/dL Invalid Interpretation Code 7 - 18 mg/dL AO ADM SS Urea nitrogen/Creatinine [Mass ratio] 16 ratio Invalid Interpretation Code 7 - 27 ratio AO ADM SS WBC (Bld) [#/Vol] 8.2 103/mcL Invalid Interpretation Code 4.6 - 10.8 10^3/mcL AO Workflow SS WBC LM.HPF (Urine sed) [#/Area] 0-5 /HPF Invalid Interpretation Code None Seen/HPF AO Auto Urine SS LABORATORYOrdered By: SYSTEM SYSTEM on 06-19-2022 GFR 108 ml/min/1.73sqm Invalid Interpretation Code AO Chemistry S GFR Non- 89 ml/min/1.73sqm Invalid Interpretation Code AO Chemistry S LIPASEon 06-19-2022 Lipase [Catalytic activity/Vol] 14.0 U/L Low 73.0 - 393 [facility] Comment on above: Performed By: #### 2 67491 #### [facility],[address] [place] [address] PREG SERUM QUANTon 2 HCG QUANTITATIVE 1 mIU/mL Normal 0 - 2 [facility] Comment on above: Result Comment: Refe arlene Range: Male: <5 Female: Non: <5 1 - 7 days : 5 - 50 1 - 2 weeks: 50 - 500 2 - 3 weeks: 100 - 5000 3 - 4 weeks: 500 - 10,000 4 - 5 weeks: 1000 - 50,000 5 - 6 weeks: 10,000 - 100,000 6 - 8 weeks: 15,000 - 200,000 2 - 3 months: 10,000 - 100,000 2ND TRIMESTER 3000-50,000 3RD TRIMESTER 1000-50,000 Performed By: #### 2 03349 #### [facility],[address] [place] [address] 68527 URINALYSISon 06-19-2022 Amorphous NONE Normal [facility] Comment on above: Performed By: #### 2 83400 #### [facility],[address] [place] [address] 70562 Bacteria 2+ Normal [facility] Comment on above: Performed By: #### 2 52026 #### [facility],[address] [place] [address] 65298 Bilirubin Ql (U) Negative Normal NORMAL: NEGATIVE [facility] Comment on above: Performed By: #### 2 97255 #### [facility],[address] [place] [address] 97384 Casts NONE Normal [facility] Comment on above: Performed By: #### 2 67600 #### [facility],[address] [place] [address] 67475 Clarity (U) clear Normal NORMAL: CLEAR [facility] Comment on above: Performed By: #### 2 05714 #### [facility],[address] [place] [address] 06115 Color (U) p.yel Normal NORMAL: YELLOW [facility] Comment on above: Performed By: #### 2 65646 #### [facility],[address] [place] [address] 78718 Crystals LM Nom (Urine sed) NONE Normal [facility] Comment on above: Performed By: #### 2 01706 #### [facility],[address] [place] [address] 61346 Epi Cells MANY Normal [facility] Comment on above: Performed By: #### 2 87956 #### [facility],[address] [place] [address] 18673 Glucose Ql (U) NORM Normal NORMAL: NORMAL [facility] Comment on above: Performed By: #### 2 04540 #### [facility],[address] [place] [address] 62111 Hemoglobin Ql (U) 25 Abnormal NORMAL: NEGATIVE [facility] Comment on above: Performed By: #### 2 03848 #### [facility],[address] [place] [address] 36477 Ketone Negative Normal NORMAL: NEGATIVE [facility] Comment on above: Performed By: #### 2 06845 #### [facility],[address] [place] [address] 85063 Leukocytes 25 Abnormal NORMAL: NEGATIVE [facility] Comment on above: Performed By: #### 2 [id number] #### [facility],[address] [place] [address] 06580 Mucous 1+ Normal [facility] Comment on above: Performed By: #### 2 [id number] #### [facility],[address] [place] [address] 78509 Nitrite Ql (U) Negative Normal NORMAL: NEGATIVE [facility] Comment on above: Performed By: #### 2 [id number] #### [facility],[address] [place] [address] 37815 pH (U) 7 [pH] Normal NORMAL: 5.0-8.0 [facility] Comment on above: Performed By: #### 2 [id number] #### [facility],[address] [place] [address] 04638 Protein Ql (U) Negative Normal NORMAL: NEGATIVE [facility] Comment on above: Performed By: #### 2 [id number] #### [facility],[address] [place] [address] 90576 Rbc 5-10 Normal 0-3/hpf [facility] Comment on above: Performed By: #### 2 [id number] #### [facility],[address] [place] [address] Sp [place] 1.010 Normal NORMAL: 1.010-1.030 [facility] Comment on above: Performed By: #### 2 [id number] #### [facility],[address] [place] [address] Specimen Type Void Normal [facility] Comment on above: Performed By: #### 2 [id number] #### [facility],[address] [place] [address] Urinalysis dipstick W Reflex Microscopic panel (U) SEE BELOW Normal [facility] Comment on above: Result Comment: MICR OSCOPIC Performed By: #### 2 [id number] #### [facility],[address] [place], [place] [id number] Urobilinog NORM Normal NORMAL: NORMAL [facility] Comment on above: Performed By: #### 2 [id number] #### [facility],[address] [place] [address] 42437 Wbc 1-5 Normal 0-5/hpf [facility] Comment on above: Performed By: #### 2 [id number] #### [facility],[address] [place] [address] 59277 Yeast NONE Normal [facility] Comment on above: Performed By: #### 2 [id number] #### [facility],[address] [place] [address] 46010 XR Toes - left 3 Viewson IMPRESSION: No acute process. Mild degenerative change of the first MTP Roof Shingler: TEE Transcribe Date/Time: Jul 05 2021 6:30P Dictated by : PAULY MORIN MD This examination was interpreted and the report reviewed and electronically signed by: PAULY MORIN MD on Jul 05 2021 6:32PM EST DIVISION OF RADIOLOGY * * *Final Report* * * DATE OF EXAM: Jul 05 2021 6:19PM WOX 5268 - XR TOE 3V AP/LAT/OBL LT / PROCEDURE REASON: Pain of toe of left foot * * * * Physician Interpretation * * * * EXAMINATION: XR TOE 3V AP/LAT/OBL LT HISTORY: Diffuse left great toe pain without injury x 3 days. TECHNIQUE: XR TOE 3V AP/LAT/OBL LT Laterality: LEFT Number of different views (projections): 3 M: XB_1 COMPARISON: There are no prior relevant studies for comparison. RESULT: AP, oblique and lateral radiographs of the left first toe show no acute osseous, articular or soft tissue abnormality. Mild degenerative change about the first MTP joint with marginal spurring and mild asymmetric joint space narrowing present. DIVISION OF RADIOLOGY Provider, [facility] [place] - 07/05/2021 * * *Final Report* * * DATE OF EXAM: Jul 05 2021 6:19PM WOX 5268 - XR TOE 3V AP/LAT/OBL LT / PROCEDURE REASON: Pain of toe of left foot * * * * Physician Interpretation * * * * EXAMINATION: XR TOE 3V AP/LAT/OBL LT HISTORY: Diffuse left great toe pain without injury x 3 days. TECHNIQUE: XR TOE 3V AP/LAT/OBL LT Laterality: LEFT Number of different views (projections): 3 M: XB_1 COMPARISON: There are no prior relevant studies for comparison. RESULT: AP, oblique and lateral radiographs of the left first toe show no acute osseous, articular or soft tissue abnormality. Mild degenerative change about the first MTP joint with marginal spurring and mild asymmetric joint space narrowing present. IMPRESSION IMPRESSION: No acute process. Mild degenerative change of the first MTP Roof Shingler: TEE Transcribe Date/Time: Jul 05 2021 6:30P Dictated by : PAULY MORIN MD This examination was interpreted and the report reviewed and electronically signed by: PAULY MORIN MD on Jul 05 2021 6:32PM EST [facility] Radiology Study observation (narrative) [facility] XR Toes - left 3 ViewsOrdere d By: [facility] Provider on 07-05-2021 [facility] XR Elbow - right AP and Late ral and obliqueon 12-23-2020 IMPRESSION: 1. Mild soft tissue swelling overlying the olecranon most compatible with mild olecranon bursitis. 2. No radiographic evidence of acute osseous injury. Roof Shingler: TEE Transcribe Date/Time: Dec 23 2020 9:26A Dictated by : YAMIL WELLER MD This examination was interpreted and the report reviewed and electronically signed by: YAMIL WELLER MD on Dec 23 2020 9:29AM EST DIVISION OF RADIOLOGY * * *Final Report* * * DATE OF EXAM: Dec 23 2020 9:24AM WOX 5325 - XR ELBOW 3V AP/LAT/OTHER RT / PROCEDURE REASON: Pain of right upper extremity * * * * Physician Interpretation * * * * CLINICAL INDICATION: Status post fall with pain TECHNIQUE: 3 view radiographic study of the right elbow COMPARISON: None FINDINGS: No abnormal elevation of the anterior or posterior fat pad to suggest elbow joint effusion. Mild soft tissue swelling overlying the olecranon. No acute fracture or dislocation identified. DIVISION OF RADIOLOGY Provider, [facility] [place] - 12/23/2020 * * *Final Report* * * DATE OF EXAM: Dec 23 2020 9:24AM WOX 5325 - XR ELBOW 3V AP/LAT/OTHER RT / PROCEDURE REASON: Pain of right upper extremity * * * * Physician Interpretation * * * * CLINICAL INDICATION: Status post fall with pain TECHNIQUE: 3 view radiographic study of the right elbow COMPARISON: None FINDINGS: No abnormal elevation of the anterior or posterior fat pad to suggest elbow joint effusion. Mild soft tissue swelling overlying the olecranon. No acute fracture or dislocation identified. IMPRESSION IMPRESSION: 1. Mild soft tissue swelling overlying the olecranon most compatible with mild olecranon bursitis. 2. No radiographic evidence of acute osseous injury. Roof Shingler[facility] Transcribe Date/Time: Dec 23 2020 9:26A Dictated by : YAMIL WELLER MD This examination was interpreted and the report reviewed and electronically signed by: YAMIL WELLER MD on Dec 23 2020 9:29AM EST [facility] Radiology Study observation (narrative) [facility] XR Elbow - right AP and Late ral and obliqueOrdered By: [facility] Provider on 12-23-2020 [facility] Nicotine/Cotinineon 11-13-19 19 Nicotine <2 Normal <2 [facility] Lab Comment on above: Performed By: #### M EASLG, MUMPSG, RUBIGG #### [facility] Routine Lab [address] [phone] #### NICOT #### [facility] Chemistry [address] [phone] Nornicotine Absent Normal Absent [facility] Comment on above: Performed By: #### M EASLG, MUMPSG, RUBIGG #### [facility] Routine Lab [address] [phone] #### NICOT #### [facility] Chemistry [address] [phone] Trimethoprim+Sulfamet hoxazole susc <2 Normal <2 [facility] Comment on above: Performed By: #### M EASLG, MUMPSG, RUBIGG #### [facility] Routine Lab [address] [phone] #### NICOT #### [facility] Chemistry [address] [phone] HepB SurfaceAb,Quanton 11-09 HepB SurfaceAb,Quant >1000.00 High <8.00 [facility] Reference Lab Comment on above: Performed By: #### M EASLG, MUMPSG, RUBIGG #### [facility] Routine Lab [address] [phone] #### NICOT #### [facility] Chemistry [address] [phone] Measles IgG Antibodyon 11-09 Measles IgG Ab, Qual Abnormal Negative [facility] Reference Lab Comment on above: Result Comment: Posi tive Presence of detectable measles virus IgG antibodies. A positive result generally indicates exposure to measles virus or previous vaccination. Performed By: #### M EASLG, MUMPSG, RUBIGG #### [facility] Routine Lab [address] [phone] #### NICOT #### [facility] Chemistry [address] [phone] Measles IgG Antibody 33.9 AU/mL Normal [facility] Reference Lab Comment on above: Performed By: #### M EASLG, MUMPSG, RUBIGG #### [facility] Routine Lab [address] [phone] #### NICOT #### [facility] Chemistry [address] [place] [phone] Mumps IgG Abon 11-09-2018 Mumps IgG Ab 113.0 AU/mL Normal [facility] Comment on above: Performed By: #### M EASLG, MUMPSG, RUBIGG #### [facility] Routine Lab [address] [phone] #### NICOT #### [facility] Chemistry [address] [place], [place] [phone] Mumps IgG, Qual Positive Abnormal Negative [facility] Comment on above: Performed By: #### M EASLG, MUMPSG, RUBIGG #### [facility] Routine Lab [address] [phone] #### NICOT #### [facility] Chemistry [address] [phone] Rubella IgG Antibodyon 11-09 Rubella IgG Ab 3.96 Index Value Normal [facility] Reference Lab Comment on above: Performed By: #### M EASLG, MUMPSG, RUBIGG #### [facility] Routine Lab [address] [phone] #### NICOT #### [facility] Chemistry [address] [address] Rubella IgG Ab, Qual Positive Abnormal Negative [facility] Reference Lab Comment on above: Performed By: #### M EASLG, MUMPSG, RUBIGG #### [facility] Routine Lab [address] [address] #### NICOT #### [facility] Chemistry [address] [address] Vital Signs Date Time Vital Sign Value Performing Clinician Facility 08-03-2024 12:03-0400 Diastolic Blood Pressure Non-Invasive 65 mm[Hg] DR GILMER CH DO [facility] 08-03-2024 12:03-0400 Heart rate 75 /min DR GILMER CH DO [facility] 08-03-2024 12:03-0400 Respiratory rate 16 /min DR GILMER CH DO [facility] 08-03-2024 12:03-0400 Systolic Blood Pressure Non-Invasive 96 mm[Hg] DR GILMER CH DO [facility] 08-03-2024 10:05-[address] GILMER CH DO [facility] 08-03-2024 10:05-0400 Body temperature 98.6 [degF] DR GILMER CH DO [facility] 08-03-2024 10:05-0400 Diastolic Blood Pressure Non-Invasive 72 mm[Hg] DR GILMER CH DO [facility] 08-03-2024 10:05-0400 Heart rate 100 /min DR GILMER CH DO [facility] 08-03-2024 10:05-0400 Respiratory rate 16 /min DR GILMER CH DO [facility] 08-03-2024 10:05-0400 Systolic Blood Pressure Non-Invasive 107 mm[Hg] DR GILMER CH DO [facility] 06-10-2024 15:48-0400 Diastolic Blood Pressure Non-Invasive 69 mm[Hg] KRISTINE ARRIAGA MD [facility] 06-10-2024 15:48-0400 Heart rate 77 /min KRISTINE ARRIAGA MD [facility] 06-10-2024 15:48-0400 Respiratory rate 20 /min KRISTINE ARRIAGA MD [facility] 06-10-2024 15:48-0400 Systolic Blood Pressure Non-Invasive 100 mm[Hg] KRISTINE ARRIAGA MD [facility] 06-10-2024 13:49-0400 Body temperature 98.06 [degF] KRISTINE ARRIAGA MD [facility] 06-10-2024 13:49-0400 Body weight 73.7 kg KRISTINE ARRIAGA MD [facility] 06-10-2024 13:49-0400 Diastolic Blood Pressure Non-Invasive 70 mm[Hg] KRISTINE ARRIAGA MD [facility] 06-10-2024 13:49-0400 Heart rate 93 /min KRISTINE ARRIAGA MD [facility] 06-10-2024 13:49-0400 Respiratory rate 16 /min KRISTINE ARRIAGA MD [facility] 06-10-2024 13:49-0400 Systolic Blood Pressure Non-Invasive 110 mm[Hg] KRISTINE ARRIAGA MD [facility] 06-05-2024 14:23-0400 Diastolic Blood Pressure Non-Invasive 58 mm[Hg] ERIBERTO CHRISTINE MD [facility] 06-05-2024 14:23-0400 Heart rate 76 /min ERIBETRO CHRISTINE MD [facility] 06-05-2024 14:23-0400 Respiratory rate 16 /min ERIBERTO CHRISTINE MD [facility] 06-05-2024 14:23-0400 Systolic Blood Pressure Non-Invasive 92 mm[Hg] ERIBERTO CHRISTINE MD [facility] 06-05-2024 11:53-0400 Body height 167 cm ERIBERTO CHRISTINE MD [facility] 06-05-2024 11:53-0400 Body temperature 98.06 [degF] ERIBERTO CHRISTINE MD [facility] 06-05-2024 11:53-0400 Body weight 72.7 kg ERIBERTO CHRISTINE MD [facility] 06-05-2024 11:53-0400 Diastolic Blood Pressure Non-Invasive 72 mm[Hg] ERIBERTO CHRISTINE MD [facility] 06-05-2024 11:53-0400 Heart rate 90 /min ERIBERTO CHRISTINE MD [facility] 06-05-2024 11:53-0400 Respiratory rate 20 /min ERIBERTO CHRISTINE MD [facility] 06-05-2024 11:53-0400 Systolic Blood Pressure Non-Invasive 112 mm[Hg] ERIBERTO CHRISTINE MD [facility] 05-17-2024 13:30-0400 Body temperature 99.3 [degF] Calvin Pendlebury WASHING MACHINE INSTALLER.CROSS CUT SAW OPERATOR Work Phone: [facility] 05-17-2024 13:30-0400 Body weight 71 kg Calvin Pendpaco WASHING MACHINE INSTALLER.CROSS CUT SAW OPERATOR Work Phone: [facility] 05-17-2024 13:30-0400 Diastolic blood pressure 71 mm[Hg] Calvin Pendlebury WASHING MACHINE INSTALLER.CROSS CUT SAW OPERATOR Work Phone: [facility] 05-17-2024 13:30-0400 Heart rate 91 /min Calvin Pendlebury WASHING MACHINE INSTALLER.CROSS CUT SAW OPERATOR Work Phone: [facility] 05-17-2024 13:30-0400 Respiratory rate 18 /min Calvin Pendlecordelia WASHING MACHINE INSTALLER.CROSS CUT SAW OPERATOR Work Phone: [facility] 05-17-2024 13:30-0400 SaO2% (BldA) [Mass fraction] 98 % Calvin Varmalecordelia WASHING MACHINE INSTALLER.CROSS CUT SAW OPERATOR Work Phone: [facility] 05-17-2024 13:30-0400 Systolic blood pressure 109 mm[Hg] Calvin Pendlebury WASHING MACHINE INSTALLER.CROSS CUT SAW OPERATOR Work Phone: [facility] 04-18-2024 19:12-0400 Body temperature 98.2 [degF] Calvin Pendlecordelia WASHING MACHINE INSTALLER.CROSS CUT SAW OPERATOR Work Phone: [facility] 04-18-2024 19:12-0400 Body weight 71.4 kg Calvin Coates WASHING MACHINE INSTALLER.CROSS CUT SAW OPERATOR Work Phone: [facility] 04-18-2024 19:12-0400 Diastolic blood pressure 72 mm[Hg] Cavlin Pendlecordelia WASHING MACHINE INSTALLER.CROSS CUT SAW OPERATOR Work Phone: [facility] 04-18-2024 19:12-0400 Heart rate 104 /min Calvin Pendlebury WASHING MACHINE INSTALLER.CROSS CUT SAW OPERATOR Work Phone: [facility] 04-18-2024 19:12-0400 Respiratory rate 16 /min Calvin Pendlebury WASHING MACHINE INSTALLER.CROSS CUT SAW OPERATOR Work Phone: [facility] 04-18-2024 19:12-0400 SaO2% (BldA) [Mass fraction] 97 % Calvin Pendlebury WASHING MACHINE INSTALLER.CROSS CUT SAW OPERATOR Work Phone: [facility] 04-18-2024 19:12-0400 Systolic blood pressure 116 mm[Hg] Calvin Pendlebury WASHING MACHINE INSTALLER.CROSS CUT SAW OPERATOR Work Phone: [facility] 04-17-2024 18:28-0400 Body temperature 98.71 [degF] [facility] WASHING MACHINE INSTALLER.CROSS CUT SAW OPERATOR Work Phone: [facility] 04-17-2024 18:28-0400 Body weight 70.9 kg [facility] WASHING MACHINE INSTALLER.CROSS CUT SAW OPERATOR Work Phone: [facility] 04-17-2024 18:28-0400 Diastolic blood pressure 78 mm[Hg] Calvin Pendlebury WASHING MACHINE INSTALLER.CROSS CUT SAW OPERATOR Work Phone: [facility] 04-17-2024 18:28-0400 Heart rate 104 /min Calvin Pendlebury WASHING MACHINE INSTALLER.CROSS CUT SAW OPERATOR Work Phone: [facility] 04-17-2024 18:28-0400 Respiratory rate 18 /min Calvin Pendlebury WASHING MACHINE INSTALLER.CROSS CUT SAW OPERATOR Work Phone: [facility] 04-17-2024 18:28-0400 SaO2% (BldA) [Mass fraction] 95 % [facility] WASHING MACHINE INSTALLER.CROSS CUT SAW OPERATOR Work Phone: [facility] 04-17-2024 18:28-0400 Systolic blood pressure 110 mm[Hg] [facility] WASHING MACHINE INSTALLER.CROSS CUT SAW OPERATOR Work Phone: [facility] 04-13-2024 09:22-0400 Body temperature 98.91 [degF] Carmen Mccauley WASHING MACHINE INSTALLER.CROSS CUT SAW OPERATOR Work Phone: [facility] 04-13-2024 09:22-0400 Body weight 70.9 kg Carmen Praisler-Wood WASHING MACHINE INSTALLER.CROSS CUT SAW OPERATOR Work Phone: [facility] 04-13-2024 09:22-0400 Diastolic blood pressure 74 mm[Hg] Carmen Praisler-Wood WASHING MACHINE INSTALLER.CROSS CUT SAW OPERATOR Work Phone: [facility] 04-13-2024 09:22-0400 Heart rate 100 /min Carmen Praisler-Wood WASHING MACHINE INSTALLER.CROSS CUT SAW OPERATOR Work Phone: [facility] 04-13-2024 09:22-0400 Respiratory rate 21 /min Carmen Praisler-Wood WASHING MACHINE INSTALLER.CROSS CUT SAW OPERATOR Work Phone: [facility] 04-13-2024 09:22-0400 SaO2% (BldA) [Mass fraction] 97 % Carmen Praisler-Wood WASHING MACHINE INSTALLER.CROSS CUT SAW OPERATOR Work Phone: [facility] 04-13-2024 09:22-0400 Systolic blood pressure 100 mm[Hg] Carmen Praisler-Wood WASHING MACHINE INSTALLER.CROSS CUT SAW OPERATOR Work Phone: [facility] 03-13-2024 13:26-0400 Blood Pressure Cuff Size DR JANELLE MATHIS DO [facility] 03-13-2024 13:26-[address] JANELLE MATHIS DO [facility] 03-13-2024 13:26-[address] JANELLE MATHIS DO [facility] 03-13-2024 13:26-0400 Body height 167.[address] JANELLE MATHIS DO [facility] 03-13-2024 13:26-0400 Body temperature 97.7 [degF] DR JANELLE MATHIS DO [facility] 03-13-2024 13:26-0400 Body weight 72.[address] JANELLE MATHIS DO [facility] 03-13-2024 13:26-0400 Diastolic Blood Pressure Non-Invasive 72 mm[Hg] DR JANELLE MATHIS DO [facility] 03-13-2024 13:26-0400 Heart rate 88 /min DR JANELLE MATHIS DO [facility] 03-13-2024 13:26-0400 Reason For Taking VItal Signs DR JANELLE MATHIS DO [facility] 03-13-2024 13:26-0400 Respiratory rate 16 /min DR JANELLE MATHIS DO [facility] 03-13-2024 13:26-0400 Systolic Blood Pressure Non-Invasive 110 mm[Hg] DR JANELLE MATHIS DO [facility] 03-11-2024 19:37-0400 Body temperature 97.88 [degF] DR RHONDA ELLSWORTH MD [facility] 03-11-2024 19:37-0400 Body weight 72.[address] RHONDA ELLSWORTH MD [facility] 03-11-2024 19:37-0400 Diastolic Blood Pressure Non-Invasive 81 mm[Hg] DR RHONDA ELLSWORTH MD [facility] 03-11-2024 19:37-0400 Heart rate 100 /min DR RHONDA ELLSWORTH MD [facility] 03-11-2024 19:37-0400 Respiratory rate 16 /min DR RHONDA ELLSWORTH MD [facility] 03-11-2024 19:37-0400 Systolic Blood Pressure Non-Invasive 133 mm[Hg] DR RHONDA ELLSWORTH MD [facility] 03-10-2024 10:54-0400 Blood Pressure Cuff Size NIDAL CHOUJAA DO [facility] 03-10-2024 10:54-0400 Blood Pressure Location NIDAL CHOUJAA DO [facility] 03-10-2024 10:54-0400 Blood Pressure Method NIDAL CHOUJAA DO [facility] 03-10-2024 10:54-0400 Body temperature 98.6 [degF] NIDAL CHOUJAA DO [facility] 03-10-2024 10:54-0400 Diastolic Blood Pressure Non-Invasive 76 mm[Hg] NIDAL CHOUJAA DO [facility] 03-10-2024 10:54-0400 Heart rate 98 /min NIDAL CHOUJAA DO [facility] 03-10-2024 10:54-0400 Respiratory rate 16 /min NIDAL CHOUJAA DO [facility] 03-10-2024 10:54-0400 Systolic Blood Pressure Non-Invasive 117 mm[Hg] NIDAL CHOUJAA DO [facility] 03-08-2024 14:58-0400 Body height 170.[address] DONTRELL REYES MD [facility] 03-08-2024 14:58-0400 Body temperature 98.06 [degF] DR DONTRELL REYES MD [facility] 03-08-2024 14:58-0400 Body weight 70.[address] DONTRELL ERYES MD [facility] 03-08-2024 14:58-0400 Diastolic Blood Pressure Non-Invasive 72 mm[Hg] DR DONTRELL REYES MD [facility] 03-08-2024 14:58-0400 Heart rate 104 /min DR DONTRELL REYES MD [facility] 03-08-2024 14:58-0400 Respiratory rate 20 /min DR DONTRELL REYES MD [facility] 03-08-2024 14:58-0400 Systolic Blood Pressure Non-Invasive 111 mm[Hg] DR DONTRELL REYES MD [facility] 02-16-2024 11:15-0400 Blood Pressure Location ERIBERTO CHRISTINE MD [facility] 02-16-2024 11:15-0400 Blood Pressure Method ERIBERTO CHRISTINE MD [facility] 02-16-2024 11:15-0400 Body temperature 98.6 [degF] ERIBERTO CHRISTINE MD [facility] 02-16-2024 11:15-0400 Diastolic Blood Pressure Non-Invasive 72 mm[Hg] ERIBERTO CHRISTINE MD [facility] 02-16-2024 11:15-0400 Heart rate 97 /min ERIBERTO CHRISTINE MD [facility] 02-16-2024 11:15-0400 Respiratory rate 18 /min ERIBERTO CHRISTINE MD [facility] 02-16-2024 11:15-0400 Systolic Blood Pressure Non-Invasive 106 mm[Hg] ERIBERTO CHRISTINE MD [facility] 01-28-2024 09:43-0400 Body height 177.9 cm CHE MONTANOT DO [facility] 01-28-2024 09:43-0400 Body temperature 98.06 [degF] CHE MONTANOT DO [facility] 01-28-2024 09:43-0400 Body weight 98 kg CHE MONTANOT DO [facility] 01-28-2024 09:43-0400 Diastolic Blood Pressure Non-Invasive 81 mm[Hg] CHE MONTANOT [facility] 01-28-2024 09:43-0400 Heart rate 66 /min CHE SANFORD DO [facility] 01-28-2024 09:43-0400 Respiratory rate 18 /min CHE SANFORD DO [facility] 01-28-2024 09:43-0400 Systolic Blood Pressure Non-Invasive 158 mm[Hg] CHE MONTANOT [facility] 01-27-2024 16:57-0400 Body temperature 97.16 [degF] ERIBERTO CHRISTINE MD [facility] 01-27-2024 16:57-0400 Diastolic Blood Pressure Non-Invasive 68 mm[Hg] ERIBERTO CHRISTINE MD [facility] 01-27-2024 16:57-0400 Heart rate 97 /min ERIBERTO CHRISTINE MD [facility] 01-27-2024 16:57-0400 Respiratory rate 24 /min ERIBERTO CHRISTINE MD [facility] 01-27-2024 16:57-0400 Systolic Blood Pressure Non-Invasive 111 mm[Hg] ERIBERTO CHRISTINE MD [facility] 12-19-2023 15:38-0400 Body temperature 98.6 [degF] DR KRISTINE RESTREPO MD [facility] 12-19-2023 15:38-0400 Body weight [address] KRISTINE RESTREPO MD [facility] 12-19-2023 15:38-0400 Diastolic Blood Pressure Non-Invasive 69 mm[Hg] DR KRISTINE RESTREPO MD [facility] 12-19-2023 15:38-0400 Heart rate 92 /min DR KRISTINE RESTREPO MD [facility] 12-19-2023 15:38-0400 Respiratory rate 18 /min DR KRISTINE RESTREPO MD [facility] 12-19-2023 15:38-0400 Systolic Blood Pressure Non-Invasive 108 mm[Hg] DR KRISTINE RESTREPO MD [facility] 12-18-2023 13:00-0400 Diastolic Blood Pressure Non-Invasive 74 mm[Hg] CHE SANFORD DO [facility] 12-18-2023 13:00-0400 Heart rate 78 /min CHE SANFORD DO [facility] 12-18-2023 13:00-0400 Systolic Blood Pressure Non-Invasive 106 mm[Hg] CHE SANFORD DO [facility] 12-18-2023 11:46-0400 Body temperature 98.06 [degF] CHE SANFORD DO [facility] 12-18-2023 11:46-0400 Body weight 71 kg CHE SANFORD DO [facility] 12-18-2023 11:46-0400 Diastolic Blood Pressure Non-Invasive 62 mm[Hg] CHE SANFORD DO [facility] 12-18-2023 11:46-0400 Heart rate 90 /min CHE SANFORD DO [facility] 12-18-2023 11:46-0400 Respiratory rate 18 /min CHE SANFORD DO [facility] 12-18-2023 11:46-0400 Systolic Blood Pressure Non-Invasive 94 mm[Hg] CHE SANFORD DO [facility] 09-20-2023 15:30-0500 Diastolic Blood Pressure Non-Invasive 70 mm[Hg] ERIBERTO CHRISTINE MD [facility] 09-20-2023 15:30-0500 Heart rate 80 /min ERIBERTO CHRISTINE MD [facility] 09-20-2023 15:30-0500 Respiratory rate 18 /min ERIBERTO CHRISTINE MD [facility] 09-20-2023 15:30-0500 Systolic Blood Pressure Non-Invasive 102 mm[Hg] ERIBERTO CHRISTINE MD [facility] 09-20-2023 13:18-0500 Body temperature 98.24 [degF] ERIBERTO CHRISTINE MD [facility] 09-20-2023 13:18-0500 Body weight 72.7 kg ERIBERTO CHRISTINE MD [facility] 09-20-2023 13:18-0500 Diastolic Blood Pressure Non-Invasive 67 mm[Hg] ERIBERTO CHRISTINE MD [facility] 09-20-2023 13:18-0500 Heart rate 84 /min ERIBERTO CHRISTINE MD [facility] 09-20-2023 13:18-0500 Respiratory rate 16 /min ERIBERTO CHRISTINE MD [facility] 09-20-2023 13:18-0500 Systolic Blood Pressure Non-Invasive 105 mm[Hg] ERIBERTO CHRISTINE MD [facility] 07-21-2023 18:14-0400 Blood Pressure Location NIDAL CHOUJAA DO [facility] 07-21-2023 18:14-0400 Blood Pressure Method NIDAL CHOUJAA DO [facility] 07-21-2023 18:14-0400 Diastolic Blood Pressure Non-Invasive 74 1 NIDAL CHOUJAA DO [facility] 07-21-2023 18:14-0400 Heart rate 87 /min NIDAL CHOUJAA DO [facility] 07-21-2023 18:14-0400 Respiratory rate 18 /min NIDAL CHOUJAA DO [facility] 07-21-2023 18:14-0400 Systolic Blood Pressure Non-Invasive 112 1 NIDAL CHOUJAA DO [facility] 07-21-2023 15:35-0400 Blood Pressure Location NIDAL CHOUJAA DO [facility] 07-21-2023 15:35-0400 Blood Pressure Method NIDAL CHOUJAA DO [facility] 07-21-2023 15:35-0400 Body temperature 98.6 [degF] NIDAL CHOUJAA DO [facility] 07-21-2023 15:35-0400 Diastolic Blood Pressure Non-Invasive 71 1 NIDAL CHOUJAA DO [facility] 07-21-2023 15:35-0400 Heart rate 92 /min NIDAL CHOUJAA DO [facility] 07-21-2023 15:35-0400 Respiratory rate 18 /min NIDAL CHOUJAA DO [facility] 07-21-2023 15:35-0400 Systolic Blood Pressure Non-Invasive 114 1 NIDAL CHOUJAA DO [facility] 03-08-2023 12:02-0400 Body temperature 99.14 [degF] DR KRISTINE RESTREPO MD [facility] 03-08-2023 12:02-0400 Diastolic Blood Pressure Non-Invasive [address] KRISTINE RESTREPO MD [facility] 03-08-2023 12:02-0400 Heart rate 100 /min DR KRISTINE RESTREPO MD [facility] 03-08-2023 12:02-0400 Respiratory rate 18 /min DR KRISTINE RESTREPO MD [facility] 03-08-2023 12:02-0400 Systolic Blood Pressure Non-Invasive [address] KRISTINE RESTREPO MD [facility] 01-02-2023 19:25-0400 Body height 170.[address] GILMER CH DO [facility] 01-02-2023 19:25-0400 Body temperature 98.24 [degF] DR GILMER CH DO [facility] 01-02-2023 19:25-0400 Body weight 72.[address] GILMER CH DO [facility] 01-02-2023 19:25-0400 Diastolic Blood Pressure Non-Invasive [address] GILMER CH DO [facility] 01-02-2023 19:25-0400 Heart rate 76 /min DR GILMER CH DO [facility] 01-02-2023 19:25-0400 Respiratory rate 16 /min DR GILMER CH DO [facility] 01-02-2023 19:25-0400 Systolic Blood Pressure Non-Invasive [address] GILMER CH DO [facility] 11-03-2022 11:27-0500 Body height 170 cm ERIBERTO CHRISTINE MD [facility] 11-03-2022 11:27-0500 Body temperature 98.78 [degF] ERIBERTO CHRISTINE MD [facility] 11-03-2022 11:27-0500 Body weight 73 kg ERIBERTO CHRISTINE MD [facility] 11-03-2022 11:27-0500 Diastolic Blood Pressure Non-Invasive 77 1 ERIBERTO CHRISTINE MD [facility] 11-03-2022 11:27-0500 Heart rate 100 /min ERIBERTO CHRISTINE MD [facility] 11-03-2022 11:27-0500 Respiratory rate 16 /min ERIBERTO CHRISTINE MD [facility] 11-03-2022 11:27-0500 Systolic Blood Pressure Non-Invasive 123 1 ERIBERTO CHRISTINE MD [facility] 07-17-2022 19:18-0400 Diastolic blood pressure 74 mm[Hg] AKSHAT DURESKA DO [facility] 07-17-2022 19:18-0400 Heart rate 98 /min AKSAHT DURESKA DO [facility] 07-17-2022 19:18-0400 Respiratory rate 16 /min AKSHAT DURESKA DO [facility] 07-17-2022 19:18-0400 Systolic blood pressure 118 mm[Hg] AKSHAT DURESKA DO [facility] 07-17-2022 17:54-0400 Body temperature 98.42 [degF] AKSHAT DURESKA DO [facility] 07-17-2022 17:54-0400 Diastolic blood pressure 71 mm[Hg] AKSHAT DURESKA DO [facility] 07-17-2022 17:54-0400 Heart rate 105 /min AKSHAT DURESKA DO [facility] 07-17-2022 17:54-0400 Respiratory rate 18 /min AKSHAT DURESKA DO [facility] 07-17-2022 17:54-0400 Systolic blood pressure 114 mm[Hg] AKSHAT DURESKA DO [facility] 06-19-2022 14:11-0400 Body temperature 98.42 [degF] PROSPER ROMERO DO [facility] 06-19-2022 14:11-0400 Diastolic blood pressure 68 mm[Hg] PROSPER ROMERO DO [facility] 06-19-2022 14:11-0400 Heart rate 93 /min PROSPER ROMERO DO [facility] 06-19-2022 14:11-0400 Mean blood pressure 79 mm[Hg] PROSPER ROMERO DO [facility] 06-19-2022 14:11-0400 Respiratory rate 16 /min PROSPER ROMERO DO [facility] 06-19-2022 14:11-0400 Systolic blood pressure 102 mm[Hg] PROSPER ROMERO DO [facility] 05-22-2022 13:37-0400 Respiratory rate 18 /min AKSHAT DURESKA DO [facility] 05-22-2022 12:13-0400 Body temperature 98.06 [degF] AKSHAT DURESKA DO [facility] 05-22-2022 12:13-0400 Diastolic blood pressure 80 mm[Hg] AKSHAT DURESKA DO [facility] 05-22-2022 12:13-0400 Heart rate 88 /min AKSHAT DURESKA DO [facility] 05-22-2022 12:13-0400 Respiratory rate 18 /min AKSHAT DURESKA DO [facility] 05-22-2022 12:13-0400 Systolic blood pressure 112 mm[Hg] AKSHAT POTTS DO [facility] 05-18-2022 08:30-0400 Body temperature 100.71 [degF] Misty Cabral WASHING MACHINE INSTALLER.CROSS CUT SAW OPERATOR Work Phone: [facility] 05-18-2022 08:30-0400 Body weight 70.03 kg Misty Cabral WASHING MACHINE INSTALLER.CROSS CUT SAW OPERATOR Work Phone: [facility] 05-18-2022 08:30-0400 Diastolic blood pressure 62 mm[Hg] Misty Cabral WASHING MACHINE INSTALLER.CROSS CUT SAW OPERATOR Work Phone: [facility] 05-18-2022 08:30-0400 Heart rate 117 /min Misty Cabral WASHING MACHINE INSTALLER.CROSS CUT SAW OPERATOR Work Phone: [facility] 05-18-2022 08:30-0400 Respiratory rate 21 /min Misty Cabral WASHING MACHINE INSTALLER.CROSS CUT SAW OPERATOR Work Phone: [facility] 05-18-2022 08:30-0400 SaO2% (BldA) [Mass fraction] 98 % Misty Cabral WASHING MACHINE INSTALLER.CROSS CUT SAW OPERATOR Work Phone: [facility] 05-18-2022 08:30-0400 Systolic blood pressure 100 mm[Hg] Misty Cabral WASHING MACHINE INSTALLER.CROSS CUT SAW OPERATOR Work Phone: [facility] 03-22-2022 16:22-0400 Body temperature 98.78 [degF] DR KRISTINE RESTREPO MD [facility] 03-22-2022 16:22-0400 Diastolic blood pressure 77 mm[Hg] DR KRISTINE ERSTREPO MD [facility] 03-22-2022 16:22-0400 Heart rate 98 /min DR KRISTINE RESTREPO MD [facility] 03-22-2022 16:22-0400 Respiratory rate 20 /min DR KRISTINE RESTREPO MD [facility] 03-22-2022 16:22-0400 Systolic blood pressure 111 mm[Hg] DR KRISTINE RESTREPO MD [facility] 01-09-2022 09:33-0400 Body temperature 98.42 [degF] PROSPER ROMERO DO [facility] 01-09-2022 09:33-0400 Diastolic blood pressure 83 mm[Hg] PROSPER ROMERO DO [facility] 01-09-2022 09:33-0400 Heart rate 88 /min PROSPER ROMERO DO [facility] 01-09-2022 09:33-0400 Respiratory rate 18 /min PROSPER ROMERO DO [facility] 01-09-2022 09:33-0400 Systolic blood pressure 126 mm[Hg] PROSPER ROMERO DO [facility] Encounters Encounter Date Encounter Type Care Provider Facility Start: 08-03-2024 End: 08-03-2024 Emergency department patient visit DR GILMER CH DO [facility] Start: 06-10-2024 End: 06-10-2024 Emergency department patient visit KRISTINE ARRIAGA MD [facility] Start: 06-05-2024 End: 06-05-2024 Emergency department patient visit ERIBERTO CHRISTINE MD [facility] Start: 05-17-2024 End: 05-17-2024 ambulatory [facility] Facility:[facility] Start: 05-17-2024 End: 05-17-2024 Patient encounter procedure Calvin Coates WASHING MACHINE INSTALLER.CROSS CUT SAW OPERATOR Work Phone: [facility] Comment on above: Visit for suture rem oval (Primary Dx) Start: 04-18-2024 End: 04-18-2024 [facility] Facility:[facility] Start: 04-18-2024 End: 04-18-2024 Office outpatient visit 15 minutes Calvin Coates WASHING MACHINE INSTALLER.CROSS CUT SAW 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 Work Phone: [facility] Comment on above: Muscle strain (Prima ry Dx) Start: 04-17-2024 End: 04-17-2024 [facility] Facility:[facility] Start: 04-17-2024 End: 04-17-2024 Office outpatient visit 25 minutes Calvin Coates WASHING MACHINE INSTALLER.CROSS CUT SAW OPERATOR Work Phone: [facility] Comment on above: Nausea and vomiting, unspecified vomiting type (Primary Dx) Start: 04-13-2024 End: 04-13-2024 [facility] Facility:[facility] Start: 04-13-2024 End: 04-13-2024 Patient encounter procedure Carmen Mccauley WASHING MACHINE INSTALLER.CROSS CUT SAW OPERATOR Work Phone: [facility] Comment on above: Cervical paraspinal muscle spasm (Primary Dx) Start: 03-13-2024 End: 03-13-2024 Emergency department patient visit DR JANELLE MATHIS DO [facility] Start: 03-11-2024 End: 03-11-2024 Emergency department patient visit DR RHONDA ELLSWORTH MD [facility] Start: 03-10-2024 End: 03-10-2024 Emergency department patient visit JENISE HARDIN DO [facility] Start: 03-08-2024 End: 03-08-2024 Emergency department patient visit DR DONTRELL REYES MD [facility] Start: 02-16-2024 End: 02-16-2024 Emergency department patient visit ERIBERTO CHRISTINE MD [facility] Start: 02-03-2024 End: 02-03-2024 [facility] Facility:[facility] Start: 01-28-2024 End: 01-28-2024 Emergency department patient visit CHE SANFORD DO [facility] Start: 01-27-2024 End: 01-27-2024 Emergency department patient visit ERIBERTO CHRISTINE MD [facility] Start: 12-19-2023 End: 12-19-2023 Emergency department patient visit DR KRISTINE RESTREPO MD [facility] Start: 12-18-2023 End: 12-18-2023 Emergency department patient visit CHE SANFORD DO [facility] Start: 09-20-2023 End: 09-20-2023 Emergency department patient visit ERIBERTO CHRISTINE MD [facility] Start: 07-22-2023 End: 07-22-2023 Emergency department patient visit [facility] Start: 07-21-2023 End: 07-21-2023 Emergency department patient visit JENISE HARDIN DO [facility] Start: 03-08-2023 End: 03-08-2023 Emergency department patient visit DR KRISTINE RESTREPO MD [facility] Start: 01-02-2023 End: 01-02-2023 Emergency department patient visit DR GILMER CH DO [facility] Start: 11-03-2022 End: 11-03-2022 Emergency department patient visit ERIBERTO CHRISTINE MD [facility] Start: 09-25-2022 End: 09-25-2022 Emergency department patient visit DR DORIAN DELGADO [facility] Start: 09-07-2022 ambulatory Facility:[facility] Start: 07-17-2022 End: 07-17-2022 Emergency department patient visit AKSHAT POTTS DO [facility] Start: 06-19-2022 End: 06-19-2022 Emergency department patient visit PROSPER ROMERO DO [facility] Start: 06-18-2022 End: 06-19-2022 Emergency department patient visit MARIELY LEON [facility] Start: 05-22-2022 End: 05-22-2022 Emergency department patient visit AKSHAT POTTS DO [facility] Start: 05-19-2022 Telephone encounter Ashli arciniega APRN.CNP Work Phone: [facility] Comment on above: [facility] Start: 05-18-2022 End: 05-18-2022 Patient encounter procedure Misty Cabral WASHING MACHINE INSTALLER.CROSS CUT SAW OPERATOR Work Phone: [facility] Comment on above: Suspected COVID-19 v irus infection (Primary Dx) Start: 03-22-2022 End: 03-22-2022 Emergency department patient visit DR KRISTINE RESTREPO MD [facility] Start: 01-09-2022 End: 01-09-2022 Emergency department patient visit PROSPER ROMERO DO [facility] Start: 07-05-2021 End: 07-05-2021 Subsequent hospital visit by physician [facility]r [facility] Work Phone: Radiology Comment on above: Pain of toe of left foot [M79.675] Start: 12-23-2020 End: 12-23-2020 Subsequent hospital visit by physician Xr [facility] Work Phone: Radiology Comment on above: Pain of right upper extremity [M79.601] Procedures Date Procedure Procedure Detail Performing Clinician Start: 06-19-2022 Urinalysis MARIELY DOS %[facility] Comment on above: Result Comment: URIN ALYSIS Performed By: #### [id number] #### [facility],[address] [place] [address] Start: 07-05-2021 Radex toe minimum 2 views Misty Cabral WASHING MACHINE INSTALLER.CROSS CUT SAW OPERATOR Work Phone: Start: 12-23-2020 Radex elbow complete minimum 3 views Calvin Coates WASHING MACHINE INSTALLER.CROSS CUT SAW OPERATOR Work Phone: Start: 10-09-2007 Colonoscopy PROSPER VELEZ LLER DO Start: 10-09-2006 Laminectomy PROSPER VELEZ JASPREET DO Start: 10-09-1990 Nasal structure (bod y structure) PROSPER NICK DO Adenoid excision PROSPER STROUD DO Appendectomy PROSPER ROMERO DO Breast biopsy and re lated procedures PROSPER ROMERO DO Comment on above: left Cholecystectomy PROSPER ROSENBERG DO Plan of Treatment Date Care Activity Detail Author Start: 09-04-2027 Urine microalbumin profile DTaP,Tdap,Td Vaccine (2 - Td or Tdap) [facility] Start: 06-09-2024 Covid-19 Vaccine () Covid-19 Vaccine () [facility] Start: 06-09-2024 Influenza vaccination Influenza Vacc ine (#1) [facility] Start: 10-09-2023 Behavioral Health Screening Behavioral Health Screening [facility] Start: 09-10-2023 HPV TESTING HPV TESTING [facility] Start: 09-10-2023 PAP TESTING PAP TESTING [facility] Start: 09-10-2023 Screening for malign ant neoplasm of cervix Cervical Cancer Screening [facility] Start: 06-09-2023 Covid-19 Vaccine ( season) Covid-19 Vaccine () [facility] Start: 2023 Screening for malign ant neoplasm of breast Mammogram Screening [facility] Start: 06-09-2022 Influenza vaccination INFLUENZA (#1) [facility] Start: 05-18-2022 End: 06-01-2022 Influenza virus A and B RNA and SARS-CoV-2 (COVID-19) N gene panel - Respiratory specimen by CHARLES with probe detection [facility] Work Phone: Comment on above: Expected: 05/18/2022 , Expires: 06/01/2022 Start: 02-15-2022 COVID-19 VACCINE (3 - Booster for Pfizer series) COVID-19 VACCINE (3 - Booster for Pfizer series) [facility] Start: 2002 Urine microalbumin profile DTAP,TDAP,TD (1 - Tdap) [facility] Start: 2001 Anxiety Screening Anxiety Screening [facility] Start: 2001 Depression Screening Depression Scre ening [facility] Start: 2001 HEPATITIS C SCREENING HEPATITIS C [facility] Start: 2001 Hepatitis C screening Hepatitis C [facility] Start: 2001 HIV SCREENING HIV SCREENING [facility] Start: 2001 HIV screening HIV Screening [facility] Start: 1995 Adult depression screening assessment DEPRESSION SCREENING [facility] Start: 1983 HEPATITIS B (1 of 3 - 3-dose series) HEPATITIS B (1 of 3 - 3-dose series) [facility] Immunizations Immunization Date Immunization Notes Care Provider Marce zimmerman 09-17-2021 SARS-CoV-2 mRNA (tozinameran) vaccine DR KRISTINE RESTREPO MD [facility] Comment on above: Result Comment: 2021: [id number] 08-24-2021 SARS-CoV-2 mRNA (tozinameran) vaccine DR KRISTINE RESTREPO MD [facility] Comment on above: Result Comment: 2021: [id number] 08-03-2021 influenza virus vaccine, unspecified formulation PROSPER ROMERO DO [facility] 07-22-2020 influenza virus vaccine, unspecified formulation PROSPER ROMERO DO [facility] 07-22-2020 influenza, injectabl e, quadrivalent, contains preservative Misty Cabral WASHING MACHINE INSTALLER.CROSS CUT SAW OPERATOR Work Phone: [facility] Work Phone: 10-09-2018 influenza virus vaccine, unspecified formulation PROSPER ROMERO DO [facility] 10-08-2018 influenza virus vaccine, unspecified formulation PROSPER ROMERO DO [facility] 03-24-2018 hepatitis B vaccine, unspecified formulation PROSPER ROMERO DO [facility] 10-04-2017 hepatitis B vaccine, unspecified formulation PROSPER ROMERO DO [facility] 09-04-2017 hepatitis B vaccine, adult dosage PROSPER ROMERO DO [facility] 09-04-2017 tetanus and diphther ia toxoids, adsorbed, preservative free, for adult use (5 Lf of tetanus toxoid and 2 Lf of diphtheria toxoid) PROSPER ROMERO DO [facility] 10-19-2012 influenza virus vaccine, unspecified formulation Misty Cabral WASHING MACHINE INSTALLER.CROSS CUT SAW OPERATOR Work Phone: [facility] Payers Date Payer Category Payer Unknown [id number] 2023 Unknown [id number] 2023 Unknown [id number] 2022 Unknown [id number] 2020 Unknown EHP MHS ZZZEHP N ON STAFF / EHP CC Non-Staff [facility] [id number] 2020-2021 [address] [address] [place] [address] HMO [id number] 2014 Medicaid [id number] 1983 Unknown [id number] 1983 Unknown [id number] 1983 Unknown [id number] 1983 Unknown [id number] 1983 Unknown [id number]. 1983 Unknown [id number]. 1983 Unknown [id number]. 1983 Unknown [id number] 1983 Unknown [id number] 1983 Unknown [id number]. 1983 Unknown [id number]. 1983 Unknown [id number]. 1983 Unknown [id number]. 1983 Unknown [id number] 1983 Unknown [id number] 1983 Unknown [id number] 1983 Unknown [id number] Unknown [id number] Social History Date Type Detail Facility Start: 09-03-2018 End: 04-12-2019 Tobacco smoking status Ex-smoker (finding) [facility] Start: 1985 Sex Assigned At Female A [facility] History of tobacco use Current smoker [facility] Start: 09-03-2018 End: 05-18-2022 Tobacco use and exposure Smokeless tobacco non-user [facility] Start: 12-23-2020 End: 05-18-2022 Alcohol intake Current non-drinker of alcohol (finding) [facility] Start: 1985 Sex Assigned At Not on file [facility] Start: 11-23-2020 End: 05-18-2022 Exposure to SARS-CoV-2 (event) Not sure [facility] Work Phone: Start: 12-30-2023 Tobacco smoking status Light t obacco smoker (finding) [facility] Start: 09-16-2020 End: 04-13-2024 History of Social function [facility] Start: 09-16-2020 End: 04-13-2024 Tobacco use panel [facility] National Score (1-100), lower number is lower risk Not on file [facility] Functional Status Date Assessment Result Facility 08-03-2024 Functional Status Independent [facility] 08-03-2024 Functional Status ID band on [facility] 06-10-2024 Functional Status Independent [facility] 06-10-2024 Functional Status Standard Safet y ID band on, Allergy Band on, Call device within reach, Bed in low position, Wheels locked, Visitor at bedside [facility] 06-05-2024 Functional Status Up ad thelma [facility] 06-05-2024 Functional Status Standard Safet y ID band on, Allergy Band on, Call device within reach, Bed in low position, Wheels locked [facility] 03-13-2024 Functional Status Independent [facility] 03-13-2024 Functional Status Awake, Resting [facility] 03-11-2024 Functional Status Standard Safet y ID band on, Call device within reach, Bed in low position, Wheels locked, Upper/Half-Length side-rails up, Bedside Cart Locked, Safety level maintained [facility] 03-10-2024 Functional Status Ambulation in [place], Ambulation in Room [facility] 03-08-2024 Functional Status Independent [facility] 02-16-2024 Functional Status ID band on, Allergy Band on, Call device within reach, Bed in low position, Wheels locked, Upper/Half-Length side-rails up, Visitor at bedside, Safety level maintained [facility] 01-28-2024 Functional Status ID band on, Call device within reach, Bed in low position, Wheels locked [facility] 01-27-2024 Functional Status Activity Maverickefren laura Independent [facility] 01-27-2024 Functional Status Identified as high risk, Room located near nursing station, Door open, Non-Slip footwear, Security notified [facility] 01-27-2024 Functional Status [facility] 12-19-2023 Functional Status ID band on, Allergy Band on, Call device within reach, Bed in low position, Wheels locked, Upper/Half-Length side-rails up, Bedside Cart Locked, Safety level maintained [facility] 12-18-2023 Functional Status Standard Safet y ID band on, Allergy Band on, Call device within reach, Bed in low position, Wheels locked, Upper/Half-Length side-rails up, Bedside Cart Locked, Safety level maintained [facility] 09-20-2023 Functional Status Standard Safet y ID band on, Call device within reach, Bed in low position, Wheels locked, Upper/Half-Length side-rails up, Bedside Cart Locked, Safety level maintained [facility] 07-21-2023 Functional Status Independent [facility] 07-21-2023 Functional Status ID band on, Allergy Band on, Call device within reach, Bed in low position, Wheels locked, Upper/Half-Length side-rails up [facility] 03-08-2023 Functional Status Up ad thelma [facility] 03-08-2023 Functional Status ID band on, Call device within reach, Bed in low position, Wheels locked, Upper/Half-Length side-rails up [facility] 01-02-2023 Functional Status Ambulating in kent, Ambulating in room, Awake [facility] 11-03-2022 Functional Status Up ad thelma [facility] 07-17-2022 Functional Status Standard Safet y ID band on, Allergy Band on, Call device within reach, Bed in low position, Wheels locked, Upper/Half-Length side-rails up, Bedside Cart Locked, Safety level maintained [facility] 06-19-2022 Functional Status Independent [facility] 06-19-2022 Functional Status Standard Safet y ID band on, Allergy Band on, Call device within reach, Bed in low position, Wheels locked, Upper/Half-Length side-rails up, Phone within reach, personal items within reach, Visitor at bedside [facility] 05-22-2022 Functional Status Standard Safet y ID band on, Allergy Band on, Call device within reach, Bed in low position, Wheels locked, Upper/Half-Length side-rails up, Phone within reach, personal items within reach, Assistive devices within reach, Bedside Cart Locked, Safety level maintained, Precautions maintained [facility] 03-22-2022 Functional Status ID band on, Call device within reach, Bed in low position, Wheels locked [facility] 01-09-2022 Functional Status [facility] Mental Status Date Assessment Result Facility 08-03-2024 Mental Status Orientation Oriented x 4 [facility] 08-03-2024 Mental Status [facility] 06-10-2024 Mental Status Orientation Oriented x 4 [facility] 06-10-2024 Mental Status [facility] 06-05-2024 Mental Status Orientation Oriented x 4 [facility] 06-05-2024 Mental Status [facility] 03-13-2024 Mental Status Orientation Oriented x 4 [facility] 03-13-2024 Mental Status [facility] 03-11-2024 Mental Status Orientation Oriented x 4 [facility] 03-10-2024 Mental Status Oriented x 4 [facility] 03-08-2024 Mental Status Oriented x 4 [facility] 02-16-2024 Mental Status Oriented x 4 [facility] 01-28-2024 Mental Status Oriented x 4 [facility] 01-27-2024 Mental Status Orientation Oriented x 4 [facility] 01-27-2024 Mental Status [facility] 12-19-2023 Mental Status Oriented x 4 [facility] 12-18-2023 Mental Status Orientation Oriented x 4 [facility] 09-20-2023 Mental Status Orientation Oriented x 4 [facility] 07-21-2023 Mental Status Orientation Oriented x 4 [facility] 07-21-2023 Mental Status [facility] 03-08-2023 Mental Status Orientation Oriented x 4 [facility] 03-08-2023 Mental Status [facility] 01-02-2023 Mental Status Oriented x 4 [facility] 11-03-2022 Mental Status Oriented x 4 [facility] 07-17-2022 Mental Status Orientation Oriented x 4 [facility] 06-19-2022 Mental Status Orientation Oriented x 4 [facility] 06-19-2022 Mental Status [facility] 03-22-2022 Mental Status Oriented x 4 [facility] 01-09-2022 Mental Status [facility] Clinical Notes 12-23-2020 to 08-03-2024 Calvin Coates APRN.CROSS CUT SAW OPERATOR - 05/17/2024 1:42 PM Calvin Grimm APRN.CROSS CUT SAW OPERATOR - 04/18/2024 7:23 PM Calvin Grimm APRN.CROSS CUT SAW OPERATOR - 04/17/2024 6:32 PM EDTPatient InstructionsLaboratory Note Date & Type Note Facility 08-03-2024 Hospital Discharge instructions Patient Education 08/03/2024 11:47:25 R.I.C.E. RICE RICE stands for rest, ice, compression, and elevation. Doing these things helps limit pain and swelling after an injury. RICE also helps injuries heal faster. Use RICE for sprains, strains, and severe bruises or bumps. Follow the tips on this handout and begin RICE as soon as possible after an injury. Rest Pain is your body s way of telling you to rest an injured area. Whether you have hurt an elbow, hand, foot, or knee, limiting its use will prevent further injury and help you heal. Ice Applying ice right after an injury helps prevent swelling and reduce pain. Don t place ice directly on your skin. Wrap a cold pack or bag of ice in a thin cloth. Place it over the injured area. Ice for 10 minutes every 3 hours. Don t ice for more than 20 minutes at a time. Compression Putting pressure (compression) on an injury helps prevent swelling and provides support. Wrap the injured area firmly with an elastic bandage. If your hand or foot tingles, becomes discolored, or feels cold to the touch, the bandage may be too tight. Rewrap it more loosely. If your bandage becomes too loose, rewrap it. Do not wear an elastic bandage overnight. Elevation Keeping an injury elevated helps reduce swelling, pain, and throbbing. Elevation is most effective when the injury is kept elevated higher than the heart. Call your healthcare provider if you notice any of the following: Fingers or toes feel numb, are cold to the touch, or change color. Skin looks shiny or tight. Pain, swelling, or bruising worsens and is not improved with elevation. [id number] [employer]. [address] [place] [address]. All rights reserved. This information is not intended as a substitute for professional medical care. Always follow your healthcare professional's instructions. Follow Up Care 08/03/2024 09:44:24 With:FLORI HERNANDEZ DO Address: [address] [place] [phone] When:2-4 days [facility] 08-03-2024 Emergency department Discharge summary Discharge Instructions Thank you for allowing [facility] to assist you with your healthcare needs. The following is important discharge information regarding your hospital visit. What to Do Next Instructions from Your Care Team No qualifying data available. Post Acute Orders No qualifying data available. You Need to Schedule the Following Appointments Follow Up with FLORI HERNANDEZ DO When:Within 2-4 days Where:[address] [place] [phone] Allergies predniSONE (Mild) Sweats Ceclor Hives Pediazole Weakness, Flushing, Nausea Suprax Weakness, Flushing, Nausea Tape Tylenol Nausea Vicodin Nausea amoxicillin erythromycin Diarrhea penicillin Pruritus, Rash traMADol Hives Medications Please ask your primary doctor or pharmacist before taking any other medication not listed, including over the counter drugs, herbal medications, vitamins and or supplements as they may interact with your home medications. What How Much When Why Instructions Last Dose Unchanged albuterol (albuterol MDI (90 mcg/ inh) CFC free inhalation aerosol) See instructions Acute bronchitis 1 to 2 puff(s) Inhalation q4h, As needed for Shortness of breath or wheezing Unchanged APAP/ butalbital/ caffeine (APAP/ butalbital/ caffeine 325-50-40 mg oral tablet (Fioricet)) 1 tab(s) by mouth Every 4 hours TAKE 1 TABLET BY MOUTH EVERY 4 HOURS NEEDED. Do not take more than 6 tablets a day Unchanged ARIPiprazole (ARIPiprazole 5 mg oral tablet) 1 tab(s) by mouth Once a day Unchanged busPIRone (busPIRone 10 mg oral tablet) 1 tab(s) by mouth Two (2) times a day Unchanged clonazePAM (Klonopin 2 mg oral tablet) 1 tab(s) by mouth Three (3) times a day Anxiety state Duration: 30 Days Please fill early due to change in the dose frequency. Unchanged lamoTRIgine (lamoTRIgine 200 mg oral tablet) 1 tab(s) by mouth Two (2) times a day Unchanged metoprolol (Kapspargo Sprinkle 25 mg oral capsule, extended release) 1 cap by mouth Once a day Duration: 100 Days Please take this list to your next doctor s visit. Bring all medications you take, including over the counter medications, herbals and other supplements with you to your doctor s visit. Patients and families are reminded to discard old lists and to update any records with all medication providers or retail pharmacies. Education Materials RICE RICE stands for rest, ice, compression, and elevation. Doing these things helps limit pain and swelling after an injury. RICE also helps injuries heal faster. Use RICE for sprains, strains, and severe bruises or bumps. Follow the tips on this handout and begin RICE as soon as possible after an injury. Rest Pain is your body s way of telling you to rest an injured area. Whether you have hurt an elbow, hand, foot, or knee, limiting its use will prevent further injury and help you heal. Ice Applying ice right after an injury helps prevent swelling and reduce pain. Don t place ice directly on your skin. Wrap a cold pack or bag of ice in a thin cloth. Place it over the injured area. Ice for 10 minutes every 3 hours. Don t ice for more than 20 minutes at a time. Compression Putting pressure (compression) on an injury helps prevent swelling and provides support. Wrap the injured area firmly with an elastic bandage. If your hand or foot tingles, becomes discolored, or feels cold to the touch, the bandage may be too tight. Rewrap it more loosely. If your bandage becomes too loose, rewrap it. Do not wear an elastic bandage overnight. Elevation Keeping an injury elevated helps reduce swelling, pain, and throbbing. Elevation is most effective when the injury is kept elevated higher than the heart. Call your healthcare provider if you notice any of the following: Fingers or toes feel numb, are cold to the touch, or change color. Skin looks shiny or tight. Pain, swelling, or bruising worsens and is not improved with elevation. [id number] [employer]. [address] [place] [address]. All rights reserved. This information is not intended as a substitute for professional medical care. Always follow your healthcare professional's instructions. Additional Information VACCINATE! IT SAVES LIVES! Members of the community who have not yet received the COVID-19 vaccine and would like to receive it can visit one of [facility] vaccine clinics. There are many vaccine clinic locations within the [facility]. For locations and available times, please visit [email or web address] It is important to note that some COVID mobile vaccine clinics are held outdoors and may be canceled in rainy or stormy conditions. To learn more about pediatric vaccinations (ages 5-11), we invite you to visit the [facility] webpage. https://www.[email or web address].org/pag es/2159-Gtpai-Enfdzazunbo-Frequent so-Zmxxz-Kfisxwnpq.html To learn more about the COVID-19 vaccine, we invite you to visit the CDC website for a list of frequently asked questions. https://www.cdc.gov/coronavirus/20 19-ncov/vaccines/faq.html [facility] Patient Portal Access Instructions: Stay connected with your healthcare team and access your personal medical information anytime with the [facility] Patient Portal. If you would like a full copy of your medical records please contact the [facility] Medical Records Department Monday through Monday between 8a.m. and 4:30p.m. Please follow the directions below to access the portal: 1.Access the email account you provided upon registration to the [facility].2.Look for an invitation email from [facility].3.Open the email and access the invitation link: Accept Invitation to [facility]4.Fill in the required somers to create your account. Sign into www.[employer] with your username and password that you [...] you will allow to register on the [facility] Patient Portal for access to your information. You can also access the [facility] Patient Portal on the [employer] bushra. Simply click on Health Records under Health Data and then click on the [employer] logo. HOW TO SAFELY DISPOSE OF PRESCRIPTION [...] Call your local pharmacy or go to [email or web address] to find one close to you.3.Make use of household items: Use cat litter or old coffee grounds to dispose medications if other options are not available. Mix your drugs with these household products, seal them in an airtight container and throw it into the garbage. Call [facility]: [phone] to be sure your drugs can be [...] a CHART COPY Signatures Patient Education Materials R.I.C.E. Medication Leaflets My discharge plan and instructions have been reviewed and explained to me and I,CAROLINA MONTEIRO understand my current condition and have read and understand these discharge instructions. I have received a written copy of the plan/instructions. If I have questions, I am aware that I should contact my doctor. Patient/Finger Cobbler Signature: Date/Time: Relationship to Patient: ___ Witness Name/Signature: Date/Time: [facility] 08-03-2024 Note ORIGINAL EXAMINATION: Exam Title:THREE XRAY VIEWS OF THE RIGHT KNEE Completed Time: 08/03/2024 10:50 am Procedure Description:KNEE 3 VIEWS RIGHT COMPARISON: No direct comparison available HISTORY: ORDERING SYSTEM PROVIDED HISTORY: Reason for Exam: fall, pain FINDINGS: No evidence for acute fracture, dislocation or destructive osseous process. Included soft tissue grossly normal. IMPRESSION: No acute osseous process demonstrated. Interpreted by: Lewis Garza DO Preliminary Report By: Lewis Garza DO Electronically signed By Lewis Garza DO Dictated Date: 08/03/2024 10:57:30 AM Prelim Date: 08/03/2024 10:58:08 AM Sign Date: 08/03/2024 10:58:08 AM Ordering Provider: GILMER CH [facility] 08-03-2024 Note Sinus rhythm Baseline wander in lead(s) II,III,aVF Electronic Signature: GILMER CH DO 08/03/2024 10:04:52 [facility] 06-10-2024 Hospital Discharge instructions Patient Education 06/10/2024 15:31:28 Epigastric Pain (Uncertain Cause) Epigastric Pain (Uncertain Cause) Epigastric pain is pain in the upper abdomen. It can be a sign of disease. Common causes include: Acid reflux (stomach acid flowing up into the esophagus) Gastritis (irritation of the stomach lining) Most often this is from aspirin or NSAID medicines such as ibuprofen, bacteria called H. pylori, or frequent alcohol use. Peptic ulcer disease Inflammation of the pancreas Gallstone Infection in the gallbladder Pain may be dull or burning. It may spread upward to the chest or to the back. There may be other symptoms such as belching, bloating, cramps or hunger pains. There may be weight loss or poor appetite, nausea or vomiting. Since the cause of your pain is not certain yet,you may need more tests. Sometimes the doctor will treat you for the most likely condition to see if there is improvement before doing more tests. Home care Medicines Antacids help neutralize the normal acids in your stomach.If you don t like the liquid, you can try a chewable one. You may find one works better than another for you. Overuse can cause diarrhea or constipation. Acid blockers (H2 blockers) decrease acid production. Examples are cimetidine, famotidine, and ranitidine. Acid inhibitors (PPIs) decrease acid production in a different way than the blockers. You may find they work better, but can take a little longer to take effect. Examples are omeprazole, lansoprazole, pantoprazole, rabeprazole, and esomeprazole. Many of these are available zphu-xgb-[id number] or available as generics. Take an antacid 30 to 60 minutes after eating and at bedtime, but not at the same time as an acid perla. Try not to take NSAIDs such as ibuprofen. Aspirin may also cause problems, but if taking it for your heart or other medical reasons, talk to your doctor before stopping it; you don't want to cause a worse problem, like a heart attack or stroke. Diet If certain foods seem to cause your pain, try not to eat them. Certain foods can worsen symptoms of gastritis. Limit or avoid fatty, fried, and spicy foods, as well as coffee, chocolate, mint, and foods with high acid content such as tomatoes and citrus fruit and juices (orange, grapefruit, lemon). Eat slowly and chew food well before swallowing. Symptoms of gastritis can be worsened by certain foods. Don't drink alcohol. It can irritate the stomach. Don't consume caffeine, or use tobacco. These can delay healing and worsen your problem. Try eating smaller meals with snacks in between. Keep an empty stomach for 2 to 3 hours before lying down. Prop the head of the bed up if you have overnight symptoms. This helps acid clear from your esophagus. Follow-up care Follow up with your healthcare provider or as advised. When to seek medical advice Call your healthcare provider right away if any of the following occur: Stomach pain worsens or moves to the right lower part of the abdomen Chest pain appears, or if it worsens or spreads to the chest, back, neck, shoulder, or arm Frequent vomiting (can t keep down liquids) Blood in the stool or vomit (red or black color) Feeling weak or dizzy, fainting, or having trouble breathing Fever of 100.4 F (38 C) or higher, or as directed by your healthcare provider Abdominal swelling [phone] [employer]. [address] [place] [address]. All rights reserved. This information is not intended as a substitute for professional medical care. Always follow your healthcare professional's instructions. Follow Up Care 06/10/2024 13:50:13 With:NEELA MELÉNDEZ Address: [address] [facility] [address] [place] [address]- [phone] Business (1) When:2-4 days Comments:Schedule appointment as soon as possibleReturn to ED if symptoms worsenClear liquid diet i.e. Pedialyte Gatorade till tomorrow morning if better can increase as toleratedPrecautions as describedCall for follow-up endoscopy as soon as possibleReturn for intractable vomiting fever or worseMay use Maalox or Gaviscon With:FLORI HERNANDEZ Address: [address] [place] [address] [place] [address]- [phone] Business (1) When:2-4 days Comments:Schedule appointment as soon as possibleReturn to ED if symptoms worsenPrecautions as describedPedialyte Gatorade till tomorrow morning if better increase as toleratedSee instructions under GI [facility] 06-10-2024 Note Discharge Instructions Thank you for allowing [facility] to assist you with your healthcare needs. The following is important discharge information regarding your hospital visit. Diagnosis from Today's Visit Abdominal pain Epigastric pain What to Do Next Instructions from Your Care Team You have been evaluated in the Emergency Department today for abdominal pain. Your evaluation did not show evidence of medical conditions requiring emergent intervention at this time. Please schedule an appointment with your primary care physician. Return to the Emergency Department if you experience worsening or uncontrolled pain, fevers 100.4F or greater, recurrent vomiting, inability to tolerate food or fluids by mouth, bloody stools or vomit, black or tarry stools, or any other concerning symptoms. Thank you for choosing us for your care. No qualifying data available. Post Acute Orders No qualifying data available. You Need to Schedule the Following Appointments Follow Up with NEELA MELÉNDEZ When:Within 2-4 days Where:[address] [place] [address] [phone] Business (1) Additional Information: Schedule appointment as soon as possible Return to ED if symptoms worsen Clear liquid diet i.e. Pedialyte Gatorade till tomorrow morning if better can increase as tolerated Precautions as described Call for follow-up endoscopy as soon as possible Return for intractable vomiting fever or worse May use Maalox or Gaviscon Follow Up with FLORI HERNANDEZ When:Within 2-4 days Where:[address] [place] [address]- [phone] Business (1) Additional Information: Schedule appointment as soon as possible Return to ED if symptoms worsen Precautions as described Pedialyte Gatorade till tomorrow morning if better increase as tolerated See instructions under GI Allergies predniSONE (Mild) Sweats Ceclor Hives Pediazole Weakness, Flushing, Nausea Suprax Weakness, Flushing, Nausea Tape Tylenol Nausea Vicodin Nausea amoxicillin erythromycin Diarrhea penicillin Pruritus, Rash traMADol Hives Medications Please ask your primary doctor or pharmacist before taking any other medication not listed, including over the counter drugs, herbal medications, vitamins and or supplements as they may interact with your home medications. What How Much When Why Instructions Last Dose New famotidine (Pepcid 20 mg oral tablet) 1 tab(s) by mouth Two (2) times a day Printed Prescription New pantoprazole (Protonix 40 mg oral enteric coated tablet) 1 tab(s) by mouth Once a day Printed Prescription Unchanged albuterol (albuterol MDI (90 mcg/ inh) CFC free inhalation aerosol) See instructions Acute bronchitis 1 to 2 puff(s) Inhalation q4h, As needed for Shortness of breath or wheezing Unchanged ARIPiprazole (ARIPiprazole 5 mg oral tablet) 1 tab(s) by mouth Once a day Unchanged baclofen (baclofen 10 mg oral tablet) 1 tab(s) by mouth Three (3) times a day as needed for Spasm Duration: 15 Days Unchanged busPIRone (busPIRone 7.5 mg oral tablet) 1 tab(s) by mouth Three (3) times a day Unchanged clonazePAM (Klonopin 2 mg oral tablet) 1 tab(s) by mouth Three (3) times a day Anxiety state Duration: 30 Days Please fill early due to change in the dose frequency. Unchanged lamoTRIgine (lamoTRIgine 200 mg oral tablet) 1 tab(s) by mouth Two (2) times a day Unchanged metoprolol (Kapspargo Sprinkle 25 mg oral capsule, extended release) 1 cap by mouth Once a day Duration: 100 Days Please take this list to your next doctor s visit. Bring all medications you take, including over the counter medications, herbals and other supplements with you to your doctor s visit. Patients and families are reminded to discard old lists and to update any records with all medication providers or retail pharmacies. Medication Leaflets famotidine (oral/injection) (fam [place] ti aimee) Heartburn Relief, Pepcid, Pepcid AC, Pepcid AC Maximum Strength, Zantac 360 What is the most important information I should know about famotidine? Follow all directions on the label and package. Use exactly as directed. What is famotidine? Famotidine is used to treat and prevent ulcers in the stomach and intestines. It also treats conditions in which the stomach produces too much acid, such as Thaddeus-Minor syndrome. Famotidine also treats gastroesophageal reflux disease (GERD) and other conditions in which acid backs up from the stomach into the esophagus, causing heartburn. The Zantac 360 brand of this medicine does not contain ranitidine, a medicine that was withdrawn from market in the [place]. Famotidine may also be used for purposes not listed in this medication guide. What should I discuss with my healthcare provider before taking famotidine? Heartburn can feel like a heart attack. Get emergency medical help if you have chest pain that spreads to your jaw or shoulder. You should not use this medicine if you are allergic to famotidine or similar medicines such as ranitidine (Zantac), cimetidine (Tagamet), or nizatidine (Axid). Ask a doctor or pharmacist if this medicine is safe to use if you have: kidney disease; liver disease; cancer stomach; or long QT syndrome (in you or a family member). Ask a doctor before using this medicine if you are or . How should I take famotidine? Use exactly as directed on the label, or as prescribed by your doctor. Famotidine oral is taken by mouth. Famotidine injection is given in a vein if you are unable to take the medicine by mouth. You may take famotidine oral with or without food. Measure liquid medicine with the supplied syringe or a dose-measuring device (not a kitchen spoon). Most ulcers heal within 4 weeks of famotidine treatment, but it may take up to 8 weeks of using this medicine before your ulcer heals. Keep using the medication as directed. Call your doctor if the condition you are treating with famotidine does not improve, or if it gets worse while using famotidine. Your treatment may also include changes in diet or lifestyle habits. Follow all instructions of your doctor or dietitian. Store at room temperature away from moisture, heat, and light. Do not allow the liquid medicine to freeze. Throw away any unused famotidine liquid that is older than 30 days. What happens if I miss a dose? Take the medicine as soon as you can, but skip the missed dose if it is almost time for your next dose. Do not take two doses at one time. What happens if I overdose? Seek emergency medical attention or call the Poison Help line at . What should I avoid while taking famotidine? Drinking alcohol may increase the risk of damage to your stomach. Avoid taking other stomach acid reducers unless your doctor has told you to. However, you may take an antacid (such as Maalox, Mylanta, Gaviscon, Milk of Magnesia, Rolaids, or Tums) with famotidine. What are the possible side effects of famotidine? Get emergency medical help if you have signs of an allergic reaction: hives; difficult breathing; swelling of your face, lips, tongue, or throat. Stop using famotidine and call your doctor at once if you have: confusion, hallucinations, agitation, lack of energy; a seizure; fast or pounding heartbeats, sudden dizziness (like you might pass out); or unexplained muscle pain, tenderness, or weakness especially if you also have fever, unusual tiredness, and dark colored urine. Some side effects may be more likely in older adults and in people who have severe kidney disease. Common side effects may include: headache; dizziness; or constipation or diarrhea. This is not a complete list of side effects and others may occur. Call your doctor for medical advice about side effects. You may report side effects to FDA at 5-142-JWA-3230. What other drugs will affect famotidine? Famotidine oral can make it harder for your body to absorb other medicines you take by mouth. Tell your doctor if you are taking: cefditoren; dasatinib; delavirdine; fosamprenavir; or tizanidine (if you are taking famotidine liquid). This list is not complete. Other drugs may affect famotidine, including prescription and sbqm-cmj-ezyyxfm medicines, vitamins, and herbal products. Not all possible drug interactions are listed here. Where can I get more information? Your doctor or pharmacist can provide more information about famotidine. Remember, keep this and all other medicines out of the reach of children, never share your medicines with others, and use this medication only for the indication prescribed. Every effort has been made to ensure that the information provided by [facility]. ('[employer]') is accurate, up-to-date, and complete, but no guarantee is made to that effect. Drug information contained herein may be time sensitive. [employer] information has been compiled for use by healthcare practitioners and consumers in the [place] and therefore [employer] does not warrant that uses outside of the [place] are appropriate, unless specifically indicated otherwise. [employer] drug information does not endorse drugs, diagnose patients or recommend therapy. [employer] drug information is an informational resource designed [...] effective or appropriate for any given patient. [employer] does not assume any responsibility for any aspect of healthcare administered with the aid of information [employer] provides. The information contained herein is not intended to cover all possible uses, directions, precautions, warnings, drug interactions, allergic reactions, or adverse effects. If you have questions about the drugs you are taking, check with your doctor, nurse or pharmacist. Copyright 0113-7269 [facility] [employer]. Version: .. Revision Date: 05/01/2023. pantoprazole (oral/injection) (olivas TOE pra zole) First-Pantoprazole, Protonix, Protonix IV What is the most important information I should know about pantoprazole? Pantoprazole can cause kidney problems or new or worsening symptoms of lupus. Tell your doctor if you have: pain in your side or lower back, painful urination, blood or pus in your urine, joint pain or a skin rash on your cheeks or arms that worsens in sunlight. This medicines can cause diarrhea. Tell your doctor if you have diarrhea that is watery or bloody. You may be more likely to have a broken bone while using pantoprazole. Talk with your doctor about ways to keep your bones healthy. What is pantoprazole? Pantoprazole is used to promote healing of erosive esophagitis (damage to your esophagus caused by stomach acid) in adults and children who are at least 5 years old. Pantoprazole is also used in adults to treat the symptoms of gastroesophageal reflux disease (GERD) and other conditions involving excessive stomach acid such as Thaddeus-Minor syndrome. Pantoprazole may also be used for purposes not listed in this medication guide. What should I discuss with my healthcare provider before using pantoprazole? You should not use pantoprazole if you are allergic to it, or if you have: breathing problems; or you are allergic to any other stomach acid medicine such as lansoprazole, rabeprazole, esomeprazole, omeprazole, and others. Some drugs should not be used with pantoprazole. Your treatment plan may change if you also use any medication that contains rilpivirine. Tell your doctor if you have or have ever had: a zinc deficiency; an electrolyte imbalance (such as low blood levels of potassium, calcium or magnesium); lupus; or liver or kidney disease. You may be more likely to have a broken bone while using pantoprazole. Talk with your doctor about ways to keep your bones healthy. Pantoprazole may harm an unborn baby. Tell your doctor if you are or plan to become . Ask a doctor if it is safe to breastfeed while using this medicine. How should I use pantoprazole? Follow all directions on your prescription label and read all medication guides or instruction sheets. Never use pantoprazole in larger amounts, or for longer than prescribed. Do not change your dose or stop using this medication without your doctor's advice. Avoid medication errors by using exactly as directed on the label, or as prescribed by your doctor. Pantoprazole is taken by mouth or given as an infusion into a vein. Pantoprazole tablets are taken by mouth, with or without food. Pantoprazole oral granules should be taken 30 minutes before a meal. Swallow the tablet whole and do not crush, chew, or break it. Read and carefully follow instructions for mixing and taking the oral granules. The oral granules can also be given through a nasogastric tube. Ask your doctor or pharmacist if you do not understand these instructions. Shake the oral suspension (liquid). Measure a dose with the supplied measuring device (not a kitchen spoon). Use this medicine for the full prescribed length of time, even if your symptoms quickly improve. You may use antacids if needed while you are taking pantoprazole tablets. Call your doctor if your symptoms do not improve, or if they get worse after using the medicine for the number of days prescribed. You may need medical tests. This medicine can affect the results of certain medical tests. Tell any doctor or laboratory staff that you are using pantoprazole. This medicine can cause diarrhea. Tell your doctor if you have diarrhea that is watery or bloody. Store pantoprazole tablet and oral granules at room temperature away from moisture and heat. Store the oral suspension tightly closed in a refrigerator. Do not freeze and protect from light. Throw the medicine away after 30 days, even if there is still medicine left inside. What happens if I miss a dose? Use the medicine as soon as you can, but skip the missed dose if it is almost time for your next dose. Do not use two doses at one time. What happens if I overdose? Seek emergency medical attention or call the Poison Help line at . What should I avoid while using pantoprazole? Follow your doctor's instructions about any restrictions on food, beverages, or activity. Avoid getting pantoprazole oral suspension in your eyes. If contact does occur, rinse with water. What are the possible side effects of pantoprazole? Get emergency medical help if you have signs of an allergic reaction (hives, difficult breathing, swelling in your face or throat) or a severe skin reaction (fever, sore throat, burning eyes, skin pain, red or purple skin rash with blistering and peeling). Seek medical treatment if you have a serious drug reaction that can affect many parts of your body. Symptoms may include skin rash, fever, swollen glands, muscle aches, severe weakness, unusual bruising, or yellowing of your skin or eyes. Call your doctor at once if you have: severe stomach pain, diarrhea that is watery or bloody; nausea, vomiting, weight loss; sudden pain or trouble moving your hip, wrist, or back; pain, swelling, burning, or irritation around the IV needle; pain in your side or lower back, painful urination, blood or pus in your urine; signs of an electrolyte imbalance--increased thirst or urination, constipation, muscle weakness, leg cramps, numbness or tingling, feeling jittery, fluttering in your chest; new or worsening symptoms of lupus--joint pain, and a skin rash on your cheeks or arms that worsens in sunlight; or vitamin B12 deficiency--shortness of breath, feeling lightheaded, irregular heartbeats, muscle weakness, pale skin, tiredness, mood changes, numbness or tingling in your legs or arms. Long-term use of pantoprazole may increase your risk of serious side effects including stomach polyps. Talk with your doctor about these risks. Common side effects may include: headache, dizziness; stomach pain, gas, nausea, vomiting, diarrhea; joint pain; or fever, rash, or cold symptoms such as stuffy nose, sneezing, sore throat. This is not a complete list of side effects and others may occur. Call your doctor for medical advice about side effects. You may report side effects to FDA at 5-887-WQA-2676. What other drugs will affect pantoprazole? Tell your doctor about all your other medicines, especially: digoxin; methotrexate; or a diuretic or 'water pill'. This list is not complete. Other drugs may affect pantoprazole, including prescription and uijb-qpb-ismfsup medicines, vitamins, and herbal products. Not all possible drug interactions are listed here. Where can I get more information? Your doctor or pharmacist can provide more information about pantoprazole. Remember, keep this and all other medicines out of the reach of children, never share your medicines with others, and use this medication only for the indication prescribed. Every effort has been made to ensure that the information provided by [facility]. [employer]') is accurate, up-to-date, and complete, but no guarantee is made to that effect. Drug information contained herein may be time sensitive. [employer] information has been compiled for use by healthcare practitioners and consumers in the [place] and therefore [employer] does not warrant that uses outside of the [place] are appropriate, unless specifically indicated otherwise. [employer] drug information does not endorse drugs, diagnose patients or recommend therapy. [employer] drug information is an informational resource designed [...] effective or appropriate for any given patient. [employer] does not assume any responsibility for any aspect of healthcare administered with the aid of information [employer] provides. The information contained herein is not intended to cover all possible uses, directions, precautions, warnings, drug interactions, allergic reactions, or adverse effects. If you have questions about the drugs you are taking, check with your doctor, nurse or pharmacist. Copyright 6546-8936 [facility]. Version: 22.01. Revision Date: 09/20/2023. Education Materials Epigastric Pain (Uncertain Cause) Epigastric pain is pain in the upper abdomen. It can be a sign of disease. Common causes include: Acid reflux (stomach acid flowing up into the esophagus) Gastritis (irritation of the stomach lining) Most often this is from aspirin or NSAID medicines such as ibuprofen, bacteria called H. pylori, or frequent alcohol use. Peptic ulcer disease Inflammation of the pancreas Gallstone Infection in the gallbladder Pain may be dull or burning. It may spread upward to the chest or to the back. There may be other symptoms such as belching, bloating, cramps or hunger pains. There may be weight loss or poor appetite, nausea or vomiting. Since the cause of your pain is not certain yet,you may need more tests. Sometimes the doctor will treat you for the most likely condition to see if there is improvement before doing more tests. Home care Medicines Antacids help neutralize the normal acids in your stomach.If you don t like the liquid, you can try a chewable one. You may find one works better than another for you. Overuse can cause diarrhea or constipation. Acid blockers (H2 blockers) decrease acid production. Examples are cimetidine, famotidine, and ranitidine. Acid inhibitors (PPIs) decrease acid production in a different way than the blockers. You may find they work better, but can take a little longer to take effect. Examples are omeprazole, lansoprazole, pantoprazole, rabeprazole, and esomeprazole. Many of these are available yysw-xpz-sacuezv or available as generics. Take an antacid 30 to 60 minutes after eating and at bedtime, but not at the same time as an acid perla. Try not to take NSAIDs such as ibuprofen. Aspirin may also cause problems, but if taking it for your heart or other medical reasons, talk to your doctor before stopping it; you don't want to cause a worse problem, like a heart attack or stroke. Diet If certain foods seem to cause your pain, try not to eat them. Certain foods can worsen symptoms of gastritis. Limit or avoid fatty, fried, and spicy foods, as well as coffee, chocolate, mint, and foods with high acid content such as tomatoes and citrus fruit and juices (orange, grapefruit, lemon). Eat slowly and chew food well before swallowing. Symptoms of gastritis can be worsened by certain foods. Don't drink alcohol. It can irritate the stomach. Don't consume caffeine, or use tobacco. These can delay healing and worsen your problem. Try eating smaller meals with snacks in between. Keep an empty stomach for 2 to 3 hours before lying down. Prop the head of the bed up if you have overnight symptoms. This helps acid clear from your esophagus. Follow-up care Follow up with your healthcare provider or as advised. When to seek medical advice Call your healthcare provider right away if any of the following occur: Stomach pain worsens or moves to the right lower part of the abdomen Chest pain appears, or if it worsens or spreads to the chest, back, neck, shoulder, or arm Frequent vomiting (can t keep down liquids) Blood in the stool or vomit (red or black color) Feeling weak or dizzy, fainting, or having trouble breathing Fever of 100.4 F (38 C) or higher, or as directed by your healthcare provider Abdominal swelling 1617-5719 [employer]. [address] [place] [address]. All rights reserved. This information is not intended as a substitute for professional medical care. Always follow your healthcare professional's instructions. Additional Information VACCINATE! IT SAVES LIVES! Members of the community who have not yet received the COVID-19 vaccine and would like to receive it can visit one of [facility] vaccine clinics. There are many vaccine clinic locations within the [facility]. For locations and available times, please visit [email or web address] It is important to note that some COVID mobile vaccine clinics are held outdoors and may be canceled in rainy or stormy conditions. To learn more about pediatric vaccinations (ages 5-11), we invite you to visit the [facility] webpage. https://www.[facility].org/pag es/0424-Kknyt-Nksckxujltt-Frequent cb-Lysaq-Ibfwmnvvm.html To learn more about the COVID-19 vaccine, we invite you to visit the CDC website for a list of frequently asked questions. https://www.cdc.gov/coronavirus/-ncov/vaccines/faq.html [facility] Patient Portal Access Instructions: Stay connected with your healthcare team and access your personal medical information anytime with the [facility] Patient Portal. If you would like a full copy of your medical records please contact the [facility] Medical Records Department Monday through Monday between 8a.m. and 4:30p.m. Please follow the directions below to access the portal: 1.Access the email account you provided upon registration to the [facility].2.Look for an invitation email from [facility].3.Open the email and access the invitation link: Accept [facility] to [facility]4.Fill in the required somers to create your account. Sign into [email or web address] with your username and password that you [...] you will allow to register on the [facility] Patient Portal for access to your information. You can also access the [facility] Patient Portal on the [employer]ra. Simply click on Health Records under Health Data and then click on the [employer] logo. HOW TO SAFELY DISPOSE OF PRESCRIPTION [...] Call your local pharmacy or go to http://bit.[email or web address]/[email or web address] to find one close to you.3.Make use of household items: Use cat litter or old coffee grounds to dispose medications if other options are not available. Mix your drugs with these household products, seal them in an airtight container and throw it into the garbage. Call [facility]: [phone] to be sure your drugs can be [...] a CHART COPY Signatures Patient Education Materials Epigastric Pain (Uncertain Cause) Medication Leaflets famotidine (oral/injection), pantoprazole (oral/injection) My discharge plan and instructions have been reviewed and explained to me and I,CAROLINA MONTEIRO understand my current condition and have read and understand these discharge instructions. I have received a written copy of the plan/instructions. If I have questions, I am aware that I should contact my doctor. Patient/Finger Cobbler Signature: Date/Time: Relationship to Patient: ___ Witness Name/Signature: Date/Time: [facility] 06-10-2024 Note Sinus rhythm SEE DICTATION Electronic Signature: KRISTINE ARRIAGA MD 06/10/2024 14:43:55 [facility] 06-05-2024 Hospital Discharge instructions Patient Education 06/05/2024 14:17:30 Abdominal Pain Abdominal Pain Abdominal pain is [...] foods again, start with small amounts of gjci-yg-fwkkyb, low-fat foods. These include apple sauce, toast, [...] increase stomach acid. Don't use aspirin or xelw-dsq-eycypka pain and fever medicines, if possible. This includes nonsteroidal anti-inflammatory drugs (NSAIDs). Lose excess weight. Finish eating at least 2 hours before you go to bed or lie down. Raise the head of your bed. 3290-7513 [employer]. [address] [place] [address]. All rights reserved. This information is not intended as a substitute for professional medical care. Always follow your healthcare professional's instructions. Follow Up Care 06/05/2024 11:41:44 With:FLORI HERNANDEZ DO Address: [address] [place] [address] [place] [address]- [phone] When:2-4 days [facility] 06-05-2024 Note Discharge Instructions Thank you for allowing [facility] to assist you with your healthcare needs. The following is important discharge information regarding your hospital visit. Diagnosis from Today's Visit Acute pelvic pain What to Do Next Instructions from Your Care Team No qualifying data available. Post Acute Orders No qualifying data available. You Need to Schedule the Following Appointments Follow Up with FLORI HERNANDEZ DO When:Within 2-4 days [facility] [place] [address] [phone] Allergies predniSONE (Mild) Sweats Ceclor Hives Pediazole Weakness, Flushing, Nausea Suprax Weakness, Flushing, Nausea Tape Tylenol Nausea Vicodin Nausea amoxicillin erythromycin Diarrhea penicillin Pruritus, Rash traMADol Hives Medications Please ask your primary doctor or pharmacist before taking any other medication not listed, including over the counter drugs, herbal medications, vitamins and or supplements as they may interact with your home medications. What How Much When Why Instructions Last Dose Unchanged albuterol (albuterol MDI (90 mcg/ inh) CFC free inhalation aerosol) See instructions Acute bronchitis 1 to 2 puff(s) Inhalation q4h, As needed for Shortness of breath or wheezing Unchanged ARIPiprazole (ARIPiprazole 5 mg oral tablet) 1 tab(s) by mouth Once a day Unchanged baclofen (baclofen 10 mg oral tablet) 1 tab(s) by mouth Three (3) times a day as needed for Spasm Duration: 15 Days Unchanged busPIRone (busPIRone 7.5 mg oral tablet) 1 tab(s) by mouth Three (3) times a day Unchanged clonazePAM (Klonopin 2 mg oral tablet) 1 tab(s) by mouth Three (3) times a day Anxiety state Duration: 30 Days Please fill early due to change in the dose frequency. Unchanged lamoTRIgine (lamoTRIgine 200 mg oral tablet) 1 tab(s) by mouth Two (2) times a day Unchanged metoprolol (Kapspargo Sprinkle 25 mg oral capsule, extended release) 1 cap by mouth Once a day Duration: 100 Days Please take this list to your next doctor s visit. Bring all medications you take, including over the counter medications, herbals and other supplements with you to your doctor s visit. Patients and families are reminded to discard old lists and to update any records with all medication providers or retail pharmacies. Education Materials Abdominal Pain Abdominal pain is pain in [...] foods again, start with small amounts of xovy-xi-ecjijz, low-fat foods. These include apple sauce, toast, [...] increase stomach acid. Don't use aspirin or vdvm-yjb-rvihfbc pain and fever medicines, if possible. This includes nonsteroidal anti-inflammatory drugs (NSAIDs). Lose excess weight. Finish eating at least 2 hours before you go to bed or lie down. Raise the head of your bed. 7423-2043 [employer]. [address] [place] [address], [place] [address]. All rights reserved. This information is not intended as a substitute for professional medical care. Always follow your healthcare professional's instructions. Additional Information VACCINATE! IT SAVES LIVES! Members of the community who have not yet received the COVID-19 vaccine and would like to receive it can visit one of [facility] vaccine clinics. There are many vaccine clinic locations within the [facility]. For locations and available times, please visit [email or web address] It is important to note that some COVID mobile vaccine clinics are held outdoors and may be canceled in rainy or stormy conditions. To learn more about pediatric vaccinations (ages 5-11), we invite you to visit the [facility] webpage. https://www.[facility].org/pag es/4156-Wtlkz-Rscgvfbigwp-Frequent dd-Ircro-Noxwpkdyt.html To learn more about the COVID-19 vaccine, we invite you to visit the CDC website for a list of frequently asked questions. https://www.cdc.gov/coronavirus/-ncov/vaccines/faq.html [place] [facility] Patient Portal Access Instructions: Stay connected with your healthcare team and access your personal medical information anytime with the [facility] Patient Portal. If you would like a full copy of your medical records please contact the [facility] Medical Records Department Monday through Monday between 8a.m. and 4:30p.m. Please follow the directions below to access the portal: 1.Access the email account you provided upon registration to the [facility].2.Look for an invitation email from [facility].3.Open the email and access the invitation link: Accept Invitation to [place] [facility]4.Fill in the required somers to create your account. Sign into [email or web address] with your username and password that you [...] you will allow to register on the [facility] Patient Portal for access to your information. You can also access the [facility] Patient Portal on the [employer] bushra. Simply click on Health Records under Health Data and then click on the [employer] logo. HOW TO SAFELY DISPOSE OF PRESCRIPTION [...] Call your local pharmacy or go to [email or web address] to find one close to you.3.Make use of household items: Use cat litter or old coffee grounds to dispose medications if other options are not available. Mix your drugs with these household products, seal them in an airtight container and throw it into the garbage. Call [facility]: [phone] to be sure your drugs can be [...] a CHART COPY Signatures Patient Education Materials Abdominal Pain Medication Leaflets My discharge plan and instructions have been reviewed and explained to me and ITHANIA JENNIFER L understand my current condition and have read and understand these discharge instructions. I have received a written copy of the plan/instructions. If I have questions, I am aware that I should contact my doctor. Patient/Finger Cobbler Signature: Date/Time: Relationship to Patient: ___ Witness Name/Signature: Date/Time: [facility] 06-05-2024 Note ORIGINAL EXAMINATION: CT OF THE ABDOMEN AND PELVIS WITHOUT CONTRAST 06/05/2024 1:37 pm TECHNIQUE: CT of the abdomen and pelvis was performed without the administration of intravenous contrast. Multiplanar reformatted images are provided for review. Automated exposure control, iterative reconstruction, and/or weight based adjustment of the mA/kV was utilized to reduce the radiation dose to as low as reasonably achievable. COMPARISON: September 20, 2023 HISTORY: ORDERING SYSTEM PROVIDED HISTORY: Reason for Exam: BILATERAL flank pain FINDINGS: Minor degenerative changes are noted in the spine, greatest inferiorly. No other osseous abnormality identified. Small areas of dependent atelectasis are identified at both lower lobes. Cholecystectomy clips are present. No focal liver lesion. The spleen, adrenal glands and pancreas are unremarkable. A 3 mm left upper to midpole renal stone is evident. No other nephrolithiasis is evident. No ureteral stone seen. No adenopathy, free air or free fluid is visible. There is a left ovarian 3.2 cm cyst. This is dependently hyperdense, compatible with a small hemorrhagic cyst. Solid pelvic organs and urinary bladder are otherwise unremarkable. No GI tract abnormality is visible. No additional contributory finding seen. IMPRESSION: 1. Nonobstructive left nephrolithiasis. No ureteral stone seen on this exam. 2. Small left ovarian hemorrhagic cyst. 3. No other potential acute finding. Interpreted by: Amador Hutchison MD Preliminary Report By: Amador Hutchison MD Electronically signed By Amador Hutchison MD Dictated Date: 06/05/2024 1:40:31 PM Prelim Date: 06/05/2024 1:43:16 PM Sign Date: 06/05/2024 1:43:16 PM Ordering Provider: LANDONNICANOR BROWN [facility] 05-17-2024 Note HNO ID: [id number] Author: CALVIN COATES APRN.CROSS CUT SAW OPERATOR Service: ? Author Type: Nurse Practitioner Type: Progress Notes Filed: 05/17/2024 13:48 Note Text: Subjective HPI Nontoxic-appearing female presents urgent care chief complaint suture removal. Patient states had 3 sutures placed at [facility] 5 days ago. States sutures were placed upper lip. Fell at home striking her lip. Feeling well currently. No drainage or fevers. No headaches dizziness or visual changes. Past medical history prescription medications allergies reviewed. .Patient presents with: Suture Removal: X 2 in upper lip, placed at [facility] on 05/11 PAST MEDICAL HISTORY No date: Anxiety No date: DDD (degenerative disc disease), lumbar PAST SURGICAL HISTORY No date: ADENOIDECTOMY PRIMARY No date: APPENDECTOMY 2011: CHOLECYSTECTOMY 2011: ERCP Comment: stent placed No date: OVARIAN CYSTECTOMY UNI/BI 1993: PAST SURGICAL HISTORY OF Comment: surgery on nasal septum 1996: PAST SURGICAL HISTORY OF Comment: lumpectomy on left breast 2006: PAST SURGICAL HISTORY OF Comment: bulging disc repair ALLERGIES Clindamycin, Dilaudid [Hydromorphone (Bulk)], Penicillins, Prednisone, and Tylenol [Acetaminophen] MEDICATIONS busPIRone (BUSPAR) 7.5 mg tablet Take 7.5 mg by mouth two times a day. metoprolol tartrate, short acting, (LOPRESSOR) 25 mg tablet Take 25 mg by mouth two times a day. baclofen 10 mg tablet Take 1 tablet by mouth three times a day as needed (muscle spasms). May cause drowsiness. ARIPiprazole (ABILIFY) 5 mg tablet Take 5 mg by mouth once daily. lamotrigine (LAMICTAL ORAL) Take 200 mg by mouth two times a day. clonazePAM (KLONOPIN) 1 mg tablet Take 1 mg by mouth twice daily as needed. ondansetron orally disintegrating (ZOFRAN ODT) 4 mg disintegrating tablet Take 1 tablet by mouth every 8 hours as needed for nausea/vomiting. (Patient not taking: Reported on 05/17/2024) lamoTRIgine (LAMICTAL) 200 mg tablet Take 1 tablet by mouth every 12 hours. (Patient not taking: Reported on 05/17/2024) MAT, IRRADIATED PREP MAT, CONTEC, (Patient not taking: Reported on 04/18/2024) FAMILY HISTORY Problem Relation Age of Onset None Mother Hypertension Father other (hypercholestermia) Father Cancer Maternal Grandmother Heart Maternal Grandfather Social History Tobacco Use Smoking status: Former Smokeless tobacco: Never Vaping Use Vaping Use: Never used Substance Use Topics Alcohol use: No Drug use: No BP 109/71 Pulse 91 Temp 37.4 ?C (99.3 ?F) Resp 18 Wt 71 kg (156 lb 8.4 oz) LMP 04/16/2024 (Approximate) SpO2 98% Review of Systems Constitutional: Negative for chills, fever and malaise/fatigue. HENT: Negative for congestion, ear discharge, ear pain, sinus pain and sore throat. Eyes: Negative for blurred vision, pain, discharge and redness. Respiratory: Negative for cough, hemoptysis, sputum production, shortness of breath, wheezing and stridor. Cardiovascular: Negative for chest pain. Gastrointestinal: Negative for abdominal pain, diarrhea, nausea and vomiting. Musculoskeletal: Negative for myalgias. Skin: Negative for itching and rash. Neurological: Negative for dizziness and headaches. Objective Physical Exam Constitutional: General: She is not in acute distress. Appearance: She is not toxic-appearing. HENT: Head: Normocephalic. Comments: 3 sutures noted highlighted area. Wound well-approximated. No drainage or redness. 3 sutures easily removed. Nose: Nose normal. Eyes: Pupils: Pupils are equal, round, and reactive to light. Cardiovascular: Rate and Rhythm: Normal rate. Pulmonary: Effort: Pulmonary effort is normal. No respiratory distress. Musculoskeletal: Cervical back: Normal range of motion. Skin: General: Skin is warm and dry. Neurological: General: No focal deficit present. Mental Status: She is alert. ASSESSMENT/PLAN: 1. Visit for suture removal - ICD9: V58.32, ICD10: Z48.02 Diagnosis suture removal. No evidence of infection. Continue wound care as discussed. Red flags prompt elevation discussed. Follow-up with PCP as needed. Verbalized understand agrees plan of care. Calvin Coates APRN.[facility] 05-17-2024 History of Present illness Narrative Images from the original note were not included. Subjective HPI Nontoxic-appearing female presents urgent care chief complaint suture removal. Patient states had 3 sutures placed at [facility] 5 days ago. States sutures were placed upper lip. Fell at home striking her lip. Feeling well currently. No drainage or fevers. No headaches dizziness or visual changes. Past medical history prescription medications allergies reviewed. .Patient presents with: Suture Removal: X 2 in upper lip, placed at [facility] on 05/11 PAST MEDICAL HISTORY No date: Anxiety No date: DDD (degenerative disc disease), lumbar PAST SURGICAL HISTORY No date: ADENOIDECTOMY PRIMARY <AGE 10 No date: APPENDECTOMY 2011: CHOLECYSTECTOMY 2011: ERCP Comment: stent placed No date: OVARIAN CYSTECTOMY UNI/BI 1993: PAST SURGICAL HISTORY OF Comment: surgery on nasal septum 1996: PAST SURGICAL HISTORY OF Comment: lumpectomy on left breast 2006: PAST SURGICAL HISTORY OF Comment: bulging disc repair ALLERGIES Clindamycin, Dilaudid [Hydromorphone (Bulk)], Penicillins, Prednisone, and Tylenol [Acetaminophen] MEDICATIONS busPIRone (BUSPAR) 7.5 mg tablet Take 7.5 mg by mouth two times a day. metoprolol tartrate, short acting, (LOPRESSOR) 25 mg tablet Take 25 mg by mouth two times a day. baclofen 10 mg tablet Take 1 tablet by mouth three times a day as needed (muscle spasms). May cause drowsiness. ARIPiprazole (ABILIFY) 5 mg tablet Take 5 mg by mouth once daily. lamotrigine (LAMICTAL ORAL) Take 200 mg by mouth two times a day. clonazePAM (KLONOPIN) 1 mg tablet Take 1 mg by mouth twice daily as needed. ondansetron orally disintegrating (ZOFRAN ODT) 4 mg disintegrating tablet Take 1 tablet by mouth every 8 hours as needed for nausea/vomiting. (Patient not taking: Reported on 05/17/2024) lamoTRIgine (LAMICTAL) 200 mg tablet Take 1 tablet by mouth every 12 hours. (Patient not taking: Reported on 05/17/2024) MAT, IRRADIATED PREP MAT, CONTEC, (Patient not taking: Reported on 04/18/2024) FAMILY HISTORY Problem Relation Age of Onset None Mother Hypertension Father other (hypercholestermia) Father Cancer Maternal Grandmother Heart Maternal Grandfather Social History Tobacco Use Smoking status: Former Smokeless tobacco: Never Vaping Use Vaping Use: Never used Substance Use Topics Alcohol use: No Drug use: No BP 109/71 Pulse 91 Temp 37.4 C (99.3 F) Resp 18 Wt 71 kg (156 lb 8.4 oz) LMP 04/16/2024 (Approximate) SpO2 98% Review of Systems Constitutional: Negative for chills, fever and malaise/fatigue. HENT: Negative for congestion, ear discharge, ear pain, sinus pain and sore throat. Eyes: Negative for blurred vision, pain, discharge and redness. Respiratory: Negative for cough, hemoptysis, sputum production, shortness of breath, wheezing and stridor. Cardiovascular: Negative for chest pain. Gastrointestinal: Negative for abdominal pain, diarrhea, nausea and vomiting. Musculoskeletal: Negative for myalgias. Skin: Negative for itching and rash. Neurological: Negative for dizziness and headaches. Objective Physical Exam Constitutional: General: She is not in acute distress. Appearance: She is not toxic-appearing. HENT: Head: Normocephalic. Comments: 3 sutures noted highlighted area. Wound well-approximated. No drainage or redness. 3 sutures easily removed. Nose: Nose normal. Eyes: Pupils: Pupils are equal, round, and reactive to light. Cardiovascular: Rate and Rhythm: Normal rate. Pulmonary: Effort: Pulmonary effort is normal. No respiratory distress. Musculoskeletal: Cervical back: Normal range of motion. Skin: General: Skin is warm and dry. Neurological: General: No focal deficit present. Mental Status: She is alert. ASSESSMENT/PLAN: 1. Visit for suture removal - ICD9: V58.32, ICD10: Z48.02 Diagnosis suture removal. No evidence of infection. Continue wound care as discussed. Red flags prompt elevation discussed. Follow-up with PCP as needed. Verbalized understand agrees plan of care. Calvin Coates APRN.CROSS CUT SAW OPERATOR documented in this encounter [facility] 04-18-2024 Note HNO ID: [id number] Author: CALVIN COATES APRN.CROSS CUT SAW OPERATOR Service: ? Author Type: Nurse Practitioner Type: Progress Notes Filed: 04/18/2024 19:36 Note Text: Subjective HPI Nontoxic-appearing female presents urgent care chief plaint neck and shoulder discomfort. Duration of symptoms 12 hours. Associated symptoms neck and shoulder discomfort. Patient was seen by me yesterday in urgent care diagnosed with nausea vomiting. Was prescribed Zofran. States vomited multiple times yesterday. [place] like she pulled a muscle in her neck. Did take some Motrin. This did help. Rates pain 4-5 out of 10. Pain is improving. Denies any other complaints. No traumatic injuries. Denies any fever body aches chills productive cough chest pain shortness of breath pleuritic pain hemoptysis nausea vomiting abdominal pain change in bowel or bladder habits. Past medical history prescription medication use and allergies reviewed. .Patient presents with: Vomiting: Neck and shoulder pain x12 hours PAST MEDICAL HISTORY Diagnosis Date Anxiety DDD (degenerative disc disease), lumbar PAST SURGICAL HISTORY Procedure Laterality Date ADENOIDECTOMY PRIMARY APPENDECTOMY CHOLECYSTECTOMY 2010 ERCP 2010 stent placed OVARIAN CYSTECTOMY UNI/BI PAST SURGICAL HISTORY OF 1992 surgery on nasal septum PAST SURGICAL HISTORY OF 1996 lumpectomy on left breast PAST SURGICAL HISTORY OF 2006 bulging disc repair ALLERGIES Clindamycin, Dilaudid [Hydromorphone (Bulk)], Penicillins, Prednisone, and Tylenol [Acetaminophen] MEDICATIONS ondansetron orally disintegrating (ZOFRAN ODT) 4 mg disintegrating tablet Take 1 tablet by mouth every 8 hours as needed for nausea/vomiting. metoprolol tartrate, short acting, (LOPRESSOR) 25 mg tablet Take 25 mg by mouth two times a day. baclofen 10 mg tablet Take 1 tablet by mouth three times a day as needed (muscle spasms). May cause drowsiness. lamoTRIgine (LAMICTAL) 200 mg tablet Take 1 tablet by mouth every 12 hours. ARIPiprazole (ABILIFY) 5 mg tablet Take 5 mg by mouth once daily. lamotrigine (LAMICTAL ORAL) Take by mouth. clonazePAM (KLONOPIN) 1 mg tablet Take 1 mg by mouth twice daily as needed. MAT, IRRADIATED PREP MAT, CONTEC, (Patient not taking: Reported on 04/18/2024) FAMILY HISTORY Problem Relation Age of Onset None Mother Hypertension Father other (hypercholestermia) Father Cancer Maternal Grandmother Heart Maternal Grandfather Social History Tobacco Use Smoking status: Former Smokeless tobacco: Never Vaping Use Vaping Use: Never used Substance Use Topics Alcohol use: No Drug use: No BP 116/72 Pulse 104 Temp 36.8 ?C (98.2 ?F) Resp 16 Wt 71.4 kg (157 lb 6.5 oz) LMP 09/14/2020 SpO2 97% Review of Systems Constitutional: Negative for chills, fever and malaise/fatigue. HENT: Negative for congestion, ear discharge, ear pain, sinus pain and sore throat. Eyes: Negative for blurred vision, pain, discharge and redness. Respiratory: Negative for cough, hemoptysis, sputum production, shortness of breath, wheezing and stridor. Cardiovascular: Negative for chest pain. Gastrointestinal: Negative for abdominal pain, diarrhea, nausea and vomiting. Musculoskeletal: Positive for neck pain. Negative for back pain, falls, joint pain and myalgias. Skin: Negative for itching and rash. Neurological: Negative for dizziness and headaches. Objective Physical Exam Constitutional: General: She is not in acute distress. Appearance: She is not diaphoretic. HENT: Head: Normocephalic. Jaw: No trismus, tenderness, swelling or pain on movement. Mouth/Throat: Mouth: Mucous membranes are moist. Pharynx: Oropharynx is clear. Uvula midline. No pharyngeal swelling, oropharyngeal exudate, posterior oropharyngeal erythema or uvula swelling. Eyes: Conjunctiva/sclera: Conjunctivae normal. Pupils: Pupils are equal, round, and reactive to light. Cardiovascular: Rate and Rhythm: Normal rate and regular rhythm. Heart sounds: Normal heart sounds. Pulmonary: Effort: Pulmonary effort is normal. No tachypnea, accessory muscle usage or respiratory distress. Breath sounds: Normal breath sounds. No stridor. No wheezing, rhonchi or rales. Abdominal: General: There is no distension. Palpations: Abdomen is soft. Tenderness: There is no abdominal tenderness. There is no guarding or rebound. Musculoskeletal: Cervical back: Normal range of motion and neck supple. No edema, erythema, rigidity or tenderness. No pain with movement. Normal range of motion. Lymphadenopathy: Cervical: No cervical adenopathy. Skin: General: Skin is warm and dry. Comments: Tenderness with palpation over right trapezius. No erythema edema noted. No spinal tenderness. Neurological: Mental Status: She is alert and oriented to person, place, and time. ASSESSMENT/PLAN: 1. Muscle strain - ICD9: 848.9, ICD10: T14.8XXA Diagnosis muscle strain. Treat conservati (more content not included)... [facility] 04-18-2024 History of Present illness Narrative Images from the original note were not included. Subjective HPI Nontoxic-appearing female presents urgent care chief plaint neck and shoulder discomfort. Duration of symptoms 12 hours. Associated symptoms neck and shoulder discomfort. Patient was seen by me yesterday in urgent care diagnosed with nausea vomiting. Was prescribed Zofran. States vomited multiple times yesterday. [place] like she pulled a muscle in her neck. Did take some Motrin. This did help. Rates pain 4-5 out of 10. Pain is improving. Denies any other complaints. No traumatic injuries. Denies any fever body aches chills productive cough chest pain shortness of breath pleuritic pain hemoptysis nausea vomiting abdominal pain change in bowel or bladder habits. Past medical history prescription medication use and allergies reviewed. .Patient presents with: Vomiting: Neck and shoulder pain x12 hours PAST MEDICAL HISTORY Diagnosis Date Anxiety DDD (degenerative disc disease), lumbar PAST SURGICAL HISTORY Procedure Laterality Date ADENOIDECTOMY PRIMARY <AGE 10 APPENDECTOMY CHOLECYSTECTOMY 2010 ERCP 2010 stent placed OVARIAN CYSTECTOMY UNI/BI PAST SURGICAL HISTORY OF 1992 surgery on nasal septum PAST SURGICAL HISTORY OF 1996 lumpectomy on left breast PAST SURGICAL HISTORY OF 2006 bulging disc repair ALLERGIES Clindamycin, Dilaudid [Hydromorphone (Bulk)], Penicillins, Prednisone, and Tylenol [Acetaminophen] MEDICATIONS ondansetron orally disintegrating (ZOFRAN ODT) 4 mg disintegrating tablet Take 1 tablet by mouth every 8 hours as needed for nausea/vomiting. metoprolol tartrate, short acting, (LOPRESSOR) 25 mg tablet Take 25 mg by mouth two times a day. baclofen 10 mg tablet Take 1 tablet by mouth three times a day as needed (muscle spasms). May cause drowsiness. lamoTRIgine (LAMICTAL) 200 mg tablet Take 1 tablet by mouth every 12 hours. ARIPiprazole (ABILIFY) 5 mg tablet Take 5 mg by mouth once daily. lamotrigine (LAMICTAL ORAL) Take by mouth. clonazePAM (KLONOPIN) 1 mg tablet Take 1 mg by mouth twice daily as needed. MAT, IRRADIATED PREP MAT, CONTEC, (Patient not taking: Reported on 04/18/2024) FAMILY HISTORY Problem Relation Age of Onset None Mother Hypertension Father other (hypercholestermia) Father Cancer Maternal Grandmother Heart Maternal Grandfather Social History Tobacco Use Smoking status: Former Smokeless tobacco: Never Vaping Use Vaping Use: Never used Substance Use Topics Alcohol use: No Drug use: No BP 116/72 Pulse 104 Temp 36.8 C (98.2 F) Resp 16 Wt 71.4 kg (157 lb 6.5 oz) LMP 09/14/2020 SpO2 97% Review of Systems Constitutional: Negative for chills, fever and malaise/fatigue. HENT: Negative for congestion, ear discharge, ear pain, sinus pain and sore throat. Eyes: Negative for blurred vision, pain, discharge and redness. Respiratory: Negative for cough, hemoptysis, sputum production, shortness of breath, wheezing and stridor. Cardiovascular: Negative for chest pain. Gastrointestinal: Negative for abdominal pain, diarrhea, nausea and vomiting. Musculoskeletal: Positive for neck pain. Negative for back pain, falls, joint pain and myalgias. Skin: Negative for itching and rash. Neurological: Negative for dizziness and headaches. Objective Physical Exam Constitutional: General: She is not in acute distress. Appearance: She is not diaphoretic. HENT: Head: Normocephalic. Jaw: No trismus, tenderness, swelling or pain on movement. Mouth/Throat: Mouth: Mucous membranes are moist. Pharynx: Oropharynx is clear. Uvula midline. No pharyngeal swelling, oropharyngeal exudate, posterior oropharyngeal erythema or uvula swelling. Eyes: Conjunctiva/sclera: Conjunctivae normal. Pupils: Pupils are equal, round, and reactive to light. Cardiovascular: Rate and Rhythm: Normal rate and regular rhythm. Heart sounds: Normal heart sounds. Pulmonary: Effort: Pulmonary effort is normal. No tachypnea, accessory muscle usage or respiratory distress. Breath sounds: Normal breath sounds. No stridor. No wheezing, rhonchi or rales. Abdominal: General: There is no distension. Palpations: Abdomen is soft. Tenderness: There is no abdominal tenderness. There is no guarding or rebound. Musculoskeletal: Cervical back: Normal range of motion and neck supple. No edema, erythema, rigidity or tenderness. No pain with movement. Normal range of motion. Lymphadenopathy: Cervical: No cervical adenopathy. Skin: General: Skin is warm and dry. Comments: Tenderness with palpation over right trapezius. No erythema edema noted. No spinal tenderness. Neurological: Mental Status: She is alert and oriented to person, place, and time. ASSESSMENT/PLAN: 1. Muscle strain - ICD9: 848.9, ICD10: T14.8XXA Diagnosis muscle strain. Treat conservatively at this point. Patient was educated on supportive therapies. Patient will follow up with primary care provider as needed. Patient was instructed to immediately proceed to emergency room for any new, worsening, or symptoms lasting longer than anticipated. The patient's clinical presentation is otherwise unremarkable at this time. Based on exam and clinical finding, the patient is stable for discharge. Plan of care was discussed with patient. Patient verbalizes understanding and agrees to plan of care. This note was generated using EpicPledge software. It may contain errors in wording, punctuation, or spelling. Calvin Coates APRN.SUKI documented in this encounter [facility] 04-17-2024 Note HNO ID: [id number] Author: CALVIN COATES APRN.CNP Service: ? Author Type: Nurse Practitioner Type: Progress Notes Filed: 04/17/2024 18:59 Note Text: Subjective HPI Nontoxic female presents urgent care chief complaint of vomiting. Duration of symptoms today. Associated symptoms nausea vomiting or transient abdominal pain. Vomited 4-5 times a day. No blood. Last vomited 2 hours ago. He is able to tolerate water. No OTC medication use. Denies any fever body aches chills productive cough chest pain shortness of breath pleuritic pain hemoptysis current abdominal pain or rashes. No change in bowel or bladder habits. Denies chance of . .Patient presents with: Vomiting: Vomiting x 1 day PAST MEDICAL HISTORY Diagnosis Date Anxiety DDD (degenerative disc disease), lumbar PAST SURGICAL HISTORY Procedure Laterality Date ADENOIDECTOMY PRIMARY APPENDECTOMY CHOLECYSTECTOMY 2010 ERCP 2010 stent placed OVARIAN CYSTECTOMY UNI/BI PAST SURGICAL HISTORY OF 1992 surgery on nasal septum PAST SURGICAL HISTORY OF 1996 lumpectomy on left breast PAST SURGICAL HISTORY OF 2006 bulging disc repair ALLERGIES Clindamycin, Dilaudid [Hydromorphone (Bulk)], Penicillins, Prednisone, and Tylenol [Acetaminophen] MEDICATIONS metoprolol tartrate, short acting, (LOPRESSOR) 25 mg tablet Take 25 mg by mouth two times a day. baclofen 10 mg tablet Take 1 tablet by mouth three times a day as needed (muscle spasms). May cause drowsiness. lamoTRIgine (LAMICTAL) 200 mg tablet Take 1 tablet by mouth every 12 hours. ARIPiprazole (ABILIFY) 5 mg tablet Take 5 mg by mouth once daily. lamotrigine (LAMICTAL ORAL) Take by mouth. clonazePAM (KLONOPIN) 1 mg tablet Take 1 mg by mouth twice daily as needed. MAT, IRRADIATED PREP MAT, CONTEC, (Patient not taking: Reported on 04/13/2024) FAMILY HISTORY Problem Relation Age of Onset None Mother Hypertension Father other (hypercholestermia) Father Cancer Maternal Grandmother Heart Maternal Grandfather Social History Tobacco Use Smoking status: Former Smokeless tobacco: Never Vaping Use Vaping Use: Never used Substance Use Topics Alcohol use: No Drug use: No BP 110/78 Pulse 104 Temp 37.1 ?C (98.7 ?F) (Tympanic) Resp 18 Wt 70.9 kg (156 lb 4.9 oz) LMP 09/14/2020 SpO2 95% Review of Systems Constitutional: Negative for chills, fever and malaise/fatigue. HENT: Negative for congestion, ear discharge, ear pain, sinus pain and sore throat. Eyes: Negative for blurred vision, pain, discharge and redness. Respiratory: Negative for cough, hemoptysis, sputum production, shortness of breath, wheezing and stridor. Cardiovascular: Negative for chest pain. Gastrointestinal: Positive for nausea and vomiting. Negative for abdominal pain and diarrhea. Musculoskeletal: Negative for myalgias. Skin: Negative for itching and rash. Neurological: Negative for dizziness and headaches. Objective Physical Exam Constitutional: General: She is not in acute distress. Appearance: She is not diaphoretic. HENT: Head: Normocephalic. Jaw: No trismus, tenderness, swelling or pain on movement. Mouth/Throat: Mouth: Mucous membranes are moist. Pharynx: Oropharynx is clear. Uvula midline. No pharyngeal swelling, oropharyngeal exudate, posterior oropharyngeal erythema or uvula swelling. Eyes: Conjunctiva/sclera: Conjunctivae normal. Pupils: Pupils are equal, round, and reactive to light. Cardiovascular: Rate and Rhythm: Regular rhythm. Tachycardia present. Heart sounds: Normal heart sounds. Pulmonary: Effort: Pulmonary effort is normal. No tachypnea, accessory muscle usage or respiratory distress. Breath sounds: Normal breath sounds. No stridor. No wheezing, rhonchi or rales. Abdominal: General: There is no distension. Palpations: Abdomen is soft. Tenderness: There is no abdominal tenderness. There is no right CVA tenderness, left CVA tenderness, guarding or rebound. Musculoskeletal: Cervical back: Normal range of motion and neck supple. No edema, erythema, rigidity or tenderness. No pain with movement. Normal range of motion. Lymphadenopathy: Cervical: No cervical adenopathy. Skin: General: Skin is warm and dry. Neurological: Mental Status: She is alert and oriented to person, place, and time. ASSESSMENT/PLAN: 1. Nausea and vomiting, unspecified vomiting type - ICD9: 787.01, ICD10: R11.2 Diagnosed with nausea vomiting. No evidence of acute abdomen. Treat as viral etiology. Zofran use as needed. Red flags for prompt ER evaluation discussed. Patient was educated on supportive therapies. Patient will follow up with primary care provider as needed. Patient was instructed to immediately proceed to emergency room for any new, worsening, or symptoms lasting longer than anticipated. The patient's clinical presentation is otherwise unremarkable at this time. Based on exam and clinical finding, the patie (more content not included)... [facility] 04-17-2024 History of Present illness Narrative Subjective HPI Nontoxic female presents urgent care chief complaint of vomiting. Duration of symptoms today. Associated symptoms nausea vomiting or transient abdominal pain. Vomited 4-5 times a day. No blood. Last vomited 2 hours ago. He is able to tolerate water. No OTC medication use. Denies any fever body aches chills productive cough chest pain shortness of breath pleuritic pain hemoptysis current abdominal pain or rashes. No change in bowel or bladder habits. Denies chance of . .Patient presents with: Vomiting: Vomiting x 1 day PAST MEDICAL HISTORY Diagnosis Date Anxiety DDD (degenerative disc disease), lumbar PAST SURGICAL HISTORY Procedure Laterality Date ADENOIDECTOMY PRIMARY <AGE 10 APPENDECTOMY CHOLECYSTECTOMY 2010 ERCP 2010 stent placed OVARIAN CYSTECTOMY UNI/BI PAST SURGICAL HISTORY OF 1992 surgery on nasal septum PAST SURGICAL HISTORY OF 1996 lumpectomy on left breast PAST SURGICAL HISTORY OF 2006 bulging disc repair ALLERGIES Clindamycin, Dilaudid [Hydromorphone (Bulk)], Penicillins, Prednisone, and Tylenol [Acetaminophen] MEDICATIONS metoprolol tartrate, short acting, (LOPRESSOR) 25 mg tablet Take 25 mg by mouth two times a day. baclofen 10 mg tablet Take 1 tablet by mouth three times a day as needed (muscle spasms). May cause drowsiness. lamoTRIgine (LAMICTAL) 200 mg tablet Take 1 tablet by mouth every 12 hours. ARIPiprazole (ABILIFY) 5 mg tablet Take 5 mg by mouth once daily. lamotrigine (LAMICTAL ORAL) Take by mouth. clonazePAM (KLONOPIN) 1 mg tablet Take 1 mg by mouth twice daily as needed. MAT, IRRADIATED PREP MAT, CONTEC, (Patient not taking: Reported on 04/13/2024) FAMILY HISTORY Problem Relation Age of Onset None Mother Hypertension Father other (hypercholestermia) Father Cancer Maternal Grandmother Heart Maternal Grandfather Social History Tobacco Use Smoking status: Former Smokeless tobacco: Never Vaping Use Vaping Use: Never used Substance Use Topics Alcohol use: No Drug use: No BP 110/78 Pulse 104 Temp 37.1 C (98.7 F) (Tympanic) Resp 18 Wt 70.9 kg (156 lb 4.9 oz) LMP 09/14/2020 SpO2 95% Review of Systems Constitutional: Negative for chills, fever and malaise/fatigue. HENT: Negative for congestion, ear discharge, ear pain, sinus pain and sore throat. Eyes: Negative for blurred vision, pain, discharge and redness. Respiratory: Negative for cough, hemoptysis, sputum production, shortness of breath, wheezing and stridor. Cardiovascular: Negative for chest pain. Gastrointestinal: Positive for nausea and vomiting. Negative for abdominal pain and diarrhea. Musculoskeletal: Negative for myalgias. Skin: Negative for itching and rash. Neurological: Negative for dizziness and headaches. Objective Physical Exam Constitutional: General: She is not in acute distress. Appearance: She is not diaphoretic. HENT: Head: Normocephalic. Jaw: No trismus, tenderness, swelling or pain on movement. Mouth/Throat: Mouth: Mucous membranes are moist. Pharynx: Oropharynx is clear. Uvula midline. No pharyngeal swelling, oropharyngeal exudate, posterior oropharyngeal erythema or uvula swelling. Eyes: Conjunctiva/sclera: Conjunctivae normal. Pupils: Pupils are equal, round, and reactive to light. Cardiovascular: Rate and Rhythm: Regular rhythm. Tachycardia present. Heart sounds: Normal heart sounds. Pulmonary: Effort: Pulmonary effort is normal. No tachypnea, accessory muscle usage or respiratory distress. Breath sounds: Normal breath sounds. No stridor. No wheezing, rhonchi or rales. Abdominal: General: There is no distension. Palpations: Abdomen is soft. Tenderness: There is no abdominal tenderness. There is no right CVA tenderness, left CVA tenderness, guarding or rebound. Musculoskeletal: Cervical back: Normal range of motion and neck supple. No edema, erythema, rigidity or tenderness. No pain with movement. Normal range of motion. Lymphadenopathy: Cervical: No cervical adenopathy. Skin: General: Skin is warm and dry. Neurological: Mental Status: She is alert and oriented to person, place, and time. ASSESSMENT/PLAN: 1. Nausea and vomiting, unspecified vomiting type - ICD9: 787.01, ICD10: R11.2 Diagnosed with nausea vomiting. No evidence of acute abdomen. Treat as viral etiology. Zofran use as needed. Red flags for prompt ER evaluation discussed. Patient was educated on supportive therapies. Patient will follow up with primary care provider as needed. Patient was instructed to immediately proceed to emergency room for any new, worsening, or symptoms lasting longer than anticipated. The patient's clinical presentation is otherwise unremarkable at this time. Based on exam and clinical finding, the patient is stable for discharge. Plan of care was discussed with patient. Patient verbalizes understanding and agrees to plan of care. This note was generated using [employer] software. It may contain errors in wording, punctuation, or spelling. Calvin Coates APRN.[employer]ATOR documented in this encounter [facility] 04-13-2024 Note HNO ID: [id number] Author: CARMEN MCCAULEY APRN.[employer]W OPERATOR Service: ? Author Type: Nurse Practitioner Type: Progress Notes Filed: 04/13/2024 09:37 Note Text: Subjective Neck Pain Associated symptoms include headaches. Pertinent negatives include no fever. Carolina Monteiro is a 39 year old female who presents with neck spasms, this has been going on for a couple weeks. The neck spasms lead to headaches if she does not get treatment. She typically sees her chiropractor for this which helps but he has been on vacation. Her PCP has also been unavailable. She typically uses baclofen for this but is out. She denies any injury to her neck. States she has a long history of neck and back problems, has had a previous back surgery. She rates her pain 8/10. She has not taken any medication today. Review of Systems Constitutional: Negative for chills and fever. Respiratory: Negative. Cardiovascular: Negative. Musculoskeletal: Positive for neck pain. Negative for back pain. Skin: Negative for rash. Neurological: Positive for headaches. BP 100/74 Pulse 100 Temp 37.2 ?C (98.9 ?F) Resp 21 Wt 70.9 kg (156 lb 4.9 oz) LMP 09/14/2020 SpO2 97% PAST MEDICAL HISTORY Diagnosis Date Anxiety DDD (degenerative disc disease), lumbar PAST SURGICAL HISTORY Procedure Laterality Date ADENOIDECTOMY PRIMARY APPENDECTOMY CHOLECYSTECTOMY 2010 ERCP 2011 stent placed OVARIAN CYSTECTOMY UNI/BI PAST SURGICAL HISTORY OF 1992 surgery on nasal septum PAST SURGICAL HISTORY OF 1996 lumpectomy on left breast PAST SURGICAL HISTORY OF 2006 bulging disc repair ALLERGIES Clindamycin, Dilaudid [Hydromorphone (Bulk)], Penicillins, Prednisone, and Tylenol [Acetaminophen] MEDICATIONS metoprolol tartrate, short acting, (LOPRESSOR) 25 mg tablet Take 25 mg by mouth two times a day. lamoTRIgine (LAMICTAL) 200 mg tablet Take 1 tablet by mouth every 12 hours. ARIPiprazole (ABILIFY) 5 mg tablet Take 5 mg by mouth once daily. lamotrigine (LAMICTAL ORAL) Take by mouth. clonazePAM (KLONOPIN) 1 mg tablet Take 1 mg by mouth twice daily as needed. baclofen 10 mg tablet Take 1 tablet by mouth three times a day as needed (muscle spasms). May cause drowsiness. MAT, IRRADIATED PREP MAT, CONTEC, (Patient not taking: Reported on 04/13/2024) FAMILY HISTORY Problem Relation Age of Onset None Mother Hypertension Father other (hypercholestermia) Father Cancer Maternal Grandmother Heart Maternal Grandfather Social History Tobacco Use Smoking status: Former Smokeless tobacco: Never Vaping Use Vaping Use: Never used Substance Use Topics Alcohol use: No Drug use: No Objective Physical Exam Vitals reviewed. Constitutional: Appearance: Normal appearance. Cardiovascular: Rate and Rhythm: Normal rate and regular rhythm. Heart sounds: Normal heart sounds. Pulmonary: Effort: Pulmonary effort is normal. No respiratory distress. Breath sounds: Normal breath sounds. No wheezing or rales. Musculoskeletal: General: Tenderness present. No swelling or signs of injury. Skin: General: Skin is warm and dry. Findings: No erythema or rash. Neurological: Mental Status: She is alert. ASSESSMENT/PLAN: 1. Cervical paraspinal muscle spasm - ICD9: 728.85, ICD10: M62.838 - BACLOFEN 10 MG TABLET - may be taken with ibuprofen or tylenol. - Follow-up with your PCP and chiropractor as soon as possible. - Discussed red flags and need for immediate medical evaluation if any occur. - Discussed supportive care treatment with fluids, rest and analgesia. - Discussed expected course of illness Carmen Mccauley APRN.[facility] 04-13-2024 History of Present illness Narrative Subjective Neck Pain Associated symptoms include headaches. Pertinent negatives include no fever. Carolina Monteiro is a 39 year old female who presents with neck spasms, this has been going on for a couple weeks. The neck spasms lead to headaches if she does not get treatment. She typically sees her chiropractor for this which helps but he has been on vacation. Her PCP has also been unavailable. She typically uses baclofen for this but is out. She denies any injury to her neck. States she has a long history of neck and back problems, has had a previous back surgery. She rates her pain 8/10. She has not taken any medication today. Review of Systems Constitutional: Negative for chills and fever. Respiratory: Negative. Cardiovascular: Negative. Musculoskeletal: Positive for neck pain. Negative for back pain. Skin: Negative for rash. Neurological: Positive for headaches. BP 100/74 Pulse 100 Temp 37.2 C (98.9 F) Resp 21 Wt 70.9 kg (156 lb 4.9 oz) LMP 09/14/2020 SpO2 97% PAST MEDICAL HISTORY Diagnosis Date Anxiety DDD (degenerative disc disease), lumbar PAST SURGICAL HISTORY Procedure Laterality Date ADENOIDECTOMY PRIMARY <AGE 10 APPENDECTOMY CHOLECYSTECTOMY 2010 ERCP 2011 stent placed OVARIAN CYSTECTOMY UNI/BI PAST SURGICAL HISTORY OF 1992 surgery on nasal septum PAST SURGICAL HISTORY OF 1996 lumpectomy on left breast PAST SURGICAL HISTORY OF 2006 bulging disc repair ALLERGIES Clindamycin, Dilaudid [Hydromorphone (Bulk)], Penicillins, Prednisone, and Tylenol [Acetaminophen] MEDICATIONS metoprolol tartrate, short acting, (LOPRESSOR) 25 mg tablet Take 25 mg by mouth two times a day. lamoTRIgine (LAMICTAL) 200 mg tablet Take 1 tablet by mouth every 12 hours. ARIPiprazole (ABILIFY) 5 mg tablet Take 5 mg by mouth once daily. lamotrigine (LAMICTAL ORAL) Take by mouth. clonazePAM (KLONOPIN) 1 mg tablet Take 1 mg by mouth twice daily as needed. baclofen 10 mg tablet Take 1 tablet by mouth three times a day as needed (muscle spasms). May cause drowsiness. MAT, IRRADIATED PREP MAT, CONTEC, (Patient not taking: Reported on 04/13/2024) FAMILY HISTORY Problem Relation Age of Onset None Mother Hypertension Father other (hypercholestermia) Father Cancer Maternal Grandmother Heart Maternal Grandfather Social History Tobacco Use Smoking status: Former Smokeless tobacco: Never Vaping Use Vaping Use: Never used Substance Use Topics Alcohol use: No Drug use: No Objective Physical Exam Vitals reviewed. Constitutional: Appearance: Normal appearance. Cardiovascular: Rate and Rhythm: Normal rate and regular rhythm. Heart sounds: Normal heart sounds. Pulmonary: Effort: Pulmonary effort is normal. No respiratory distress. Breath sounds: Normal breath sounds. No wheezing or rales. Musculoskeletal: General: Tenderness present. No swelling or signs of injury. Skin: General: Skin is warm and dry. Findings: No erythema or rash. Neurological: Mental Status: She is alert. ASSESSMENT/PLAN: 1. Cervical paraspinal muscle spasm - ICD9: 728.85, ICD10: M62.838 - BACLOFEN 10 MG TABLET - may be taken with ibuprofen or tylenol. - Follow-up with your PCP and chiropractor as soon as possible. - Discussed red flags and need for immediate medical evaluation if any occur. - Discussed supportive care treatment with fluids, rest and analgesia. - Discussed expected course of illness Carmen Mccauley APRN.SUKI documented in this encounter [facility] 04-13-2024 Instructions Carmen Mccauley APRN.SUKI - 04/13/2024 9:31 AM EDT ASSESSMENT/PLAN: 1. Cervical paraspinal muscle spasm - ICD9: 728.85, ICD10: M62.838 - BACLOFEN 10 MG TABLET - may be taken with ibuprofen or tylenol. - Follow-up with your PCP and chiropractor as soon as possible. - Discussed red flags and need for immediate medical evaluation if any occur. - Discussed supportive care treatment with fluids, rest and analgesia. - Discussed expected course of illness Carmen Mccauley APRN.[employer]W OPERATOR documented in this encounter [facility] 03-13-2024 Hospital Discharge instructions Patient Education 03/13/2024 15:12:27 Back Exercises, Lumbar Exercises to Strengthen Your Lower Back Strong lower back and abdominal muscles work together to support your spine. The exercises below will help strengthen the lower back. It is important that you begin exercising slowly and increase levels gradually. Always begin any exercise program with stretching. If you feel pain while doing any of these exercises, stop and talk to your doctor about a more specific exercise program that better suits your condition. Low back stretch The point of stretching is to make you more flexible and increase your range of motion. Stretch only as much as you are able. Stretch slowly. Do not push your stretch to the limit. If at any point you feel pain while stretching, this is your (temporary) limit. Lie on your back with your knees bent and both feet on the ground. Slowly raise your left knee to your chest as you flatten your lower back against the floor. Hold for 5 seconds. Relax and repeat the exercise with your right knee. Do 10 of these exercises for each leg. Repeat hugging both knees to your chest at the same time. Building lower back strength Start your exercise routine with 10 to 30 minutes a day, 1 to 3 times a day. Initial exercises Lying on your back: 1. Ankle pumps: Move your foot up and down, towards your head, and then away. Repeat 10 times with each foot. 2. Heel slides: Slowly bend your knee, drawing the heel of your foot towards you. Then slide your heel/foot from you, straightening your knee. Do not lift your foot off the floor (this is not a leg lift). 3. Abdominal contraction: Bend your knees and put your hands on your stomach. Tighten your stomach muscles. Hold for 5 seconds, then relax. Repeat 10 times. 4. Straight leg raise: Bend one leg at the knee and keep the other leg straight. Tighten your stomach muscles. Slowly lift your straight leg 6 to 12 inches off the floor and hold for up to 5 seconds. Repeat 10 times on each side. Standin. Wall squats: Stand with your back against the wall. Move your feet about 12 inches away from the wall. Tighten your stomach muscles, and slowly bend your knees until they are at about a 45 degree angle. Do not go down too far. Hold about 5 seconds. Then slowly return to your starting position. Repeat 10 times. 2. Heel raises: Stand facing the wall. Slowly raise the heels of your feet up and down, while keeping your toes on the floor. If you have trouble balancing, you can touch the wall with your hands. Repeat 10 times. More advanced exercises When you feel comfortable enough, try these exercises. 1. Kneeling lumbar extension: Begin on your hands and knees. At the same time, raise and straighten your right arm and left leg until they are parallel to the ground. Hold for 2 seconds and come back slowly to a starting position. Repeat with left arm and right leg, alternating 10 times. 2. Prone lumbar extension: Lie face down, arms extended overhead, palms on the floor. At the same time, raise your right arm and left leg as high as comfortably possible. Hold for 10 seconds and slowly return to start. Repeat with left arm and right leg, alternating 10 times. Gradually build up to 20 times. (Advanced: Repeat this exercise raising both arms and both legs a few inches off the floor at the same time. Hold for 5 seconds and release.) 3. Pelvic tilt: Lie on the floor on your back with your knees bent at 90 degrees. Your feet should be flat on the floor. Inhale, exhale, then slowly contract your abdominal muscles bringing your navel toward your spine. Let your pelvis rock back until your lower back is flat on the floor. Hold for 10 seconds while breathing smoothly. 4. Abdominal crunch: Perform a pelvic tilt (above) flattening your lower back against the floor. Holding the tension in your abdominal muscles, take another breath and raise your shoulder blades off the ground (this is not a full sit-up). Keep your head in line with your body (don t bend your neck forward). Hold for 2 seconds, then slowly lower. [id number] [employer]. [address] [place] [address], [place] [address]. All rights reserved. This information is not intended as a substitute for professional medical care. Always follow your healthcare professional's instructions. 03/13/2024 15:12:23 Back Care Tips Back Care Tips Caring for your back These are things you can do to prevent a recurrence of acute back pain and to reduce symptoms from chronic back pain: Maintain a healthy weight. If you are overweight, losing weight will help most types of back pain. Exercise is an important part of recovery from most types of back pain. The muscles behind and in front of the spine support the back. This means strengthening both the back muscles and the abdominal muscles will provide better support for your spine. Swimming and brisk walking are good overall exercises to improve your fitness level. Practice safe lifting methods (below). Practice good posture when sitting, standing and walking. Avoid prolonged sitting. This puts more stress on the lower back than standing or walking. Wear quality shoes with sufficient arch support. Foot and ankle alignment can affect back symptoms. Women should avoid wearing high heels. Therapeutic massage can help relax the back muscles without stretching them. During the first 24 to 72 hours after an acute injury or flare-up of chronic back pain, apply an ice pack to the painful area for 20 minutes and then remove it for 20 minutes, over a period of 60 to 90 minutes, or several times a day. As a safety precaution, do not use a heating pad at bedtime. Sleeping on a heating pad can lead to skin gaytan or tissue damage. You can alternate ice and heat therapies. Medicines Talk to your healthcare provider before using medicines, especially if you have other medical problems or are taking other medicines. You may use acetaminophen or ibuprofen to control pain, unless your healthcare provider prescribed other pain medicine. If you have chronic conditions like diabetes, liver or kidney disease, stomach ulcers, or gastrointestinal bleeding, or are taking blood thinners, talk with your healthcare provider before taking any medicines. Be careful if you are given prescription pain medicines, narcotics, or medicine for muscle spasm. They can cause drowsiness, affect your coordination, reflexes, and judgment. Do not drive or operate heavy machinery while taking these types of medicines. Take prescription pain medicine only as prescribed by your healthcare provider. Lumbar stretch Here is a simple stretching exercise that will help relax muscle spasm and keep your back more limber. If exercise makes your back pain worse, don t do it. Lie on your back with your knees bent and both feet on the ground. Slowly raise your left knee to your chest as you flatten your lower back against the floor. Hold for 5 seconds. Relax and repeat the exercise with your right knee. Do 10 of these exercises for each leg. Safe lifting method Don t bend over at the waist to lift an object off the floor. Instead, bend your knees and hips in a squat. Keep your back and head upright Hold the object close to your body, directly in front of you. Straighten your legs to lift the object. Lower the object to the floor in the reverse fashion. If you must slide something across the floor, push it. Posture tips Sitting Sit in chairs with straight backs or low-back support. Keep your knees lower than your hips, with your feet flat on the floor. When driving, sit up straight. Adjust the seat forward so you are not leaning toward the steering wheel. A small pillow or rolled towel behind your lower back may help if you are driving long distances. Standing When standing for long periods, shift most of your weight to one leg at a time. Alternate legs every few minutes. Sleeping The best way to sleep is on your side with your knees bent. Put a low pillow under your head to support your neck in a neutral spine position. Avoid thick pillows that bend your neck to one side. Put a pillow between your legs to further relax your lower back. If you sleep on your back, put pillows under your knees to support your legs in a slightly flexed position. Use a firm mattress. If your mattress sags, replace it, or use a 1/2-inch plywood board under the mattress to add support. Follow-up care Follow up with your healthcare provider, or as advised. If X-rays, a CT scan or an MRI scan were taken, they will be reviewed by a radiologist. You will be notified of any new findings that may affect your care. Call 911 Call 911 if any of the following occur: Trouble breathing Confusion Very drowsy Fainting or loss of consciousness Rapid or very slow heart rate Loss of bowel or bladder control When to seek medical advice Call your healthcare provider right away if any of the following occur: Pain becomes worse or spreads to your arms or legs Weakness or numbness in one or both arms or legs Numbness in the groin area [id number] [employer]. [address] [place] [id number]. All rights reserved. This information is not intended as a substitute for professional medical care. Always follow your healthcare professional's instructions. Follow Up Care 03/13/2024 13:21:18 With:FLORI HERNANDEZ DO Address: [address] [place] [phone] When:2-4 days [facility] 03-13-2024 Note Discharge Instructions Thank you for allowing [facility] to assist you with your healthcare needs. The following is important discharge information regarding your hospital visit. Diagnosis from Today's Visit Back pain What to Do Next Instructions from Your Care Team No qualifying data available. Post Acute Orders No qualifying data available. You Need to Schedule the Following Appointments Follow Up with FLORI HERNANDEZ DO When:Within 2-4 days Where:[address] [place] [phone] Allergies predniSONE (Mild) Sweats Ceclor Hives Pediazole Weakness, Flushing, Nausea Suprax Weakness, Flushing, Nausea Tape Tylenol Nausea Vicodin Nausea amoxicillin erythromycin Diarrhea penicillin Pruritus, Rash traMADol Hives Medications Please ask your primary doctor or pharmacist before taking any other medication not listed, including over the counter drugs, herbal medications, vitamins and or supplements as they may interact with your home medications. What How Much When Why Instructions Last Dose Unchanged albuterol (albuterol MDI (90 mcg/ inh) CFC free inhalation aerosol) See instructions Acute bronchitis 1 to 2 puff(s) Inhalation q4h, As needed for Shortness of breath or wheezing Unchanged ARIPiprazole (ARIPiprazole 5 mg oral tablet) 1 tab(s) by mouth Once a day Unchanged baclofen (baclofen 10 mg oral tablet) 0.5 tab(s) by mouth Three (3) times a day as needed for Spasm Unchanged clonazePAM (KlonoPIN 1 mg oral tablet) 1 tab(s) by mouth Three (3) times a day Depression, major, recurrent, moderate Unchanged fluticasone nasal (fluticasone 50 mcg/ inh NASAL spray) 2 spray(s) each nostril Once a day Acute rhinosinusitis Duration: 30 Days shake well before using Unchanged lamoTRIgine (LaMICtal 200 mg oral tablet) 1 tab(s) by mouth Two (2) times a day Please fill today. The patient has lost her bottle of Lamictal, and abruptly discontinued it and is in withdrawal. Unchanged metoprolol (Kapspargo Sprinkle 25 mg oral capsule, extended release) 1 cap by mouth Once a day Duration: 100 Days Unchanged PHENobarbital (PHENobarbital 30 mg oral tablet) 1 tab(s) by mouth Three (3) times a day as needed for withdrawal symptoms Alcohol abuse Duration: 14 Days Separate from a dose of the cloazepam by at least 2 hours Unchanged sodium chloride nasal (Saline Mist 0.65% nasal spray) 1 spray(s) Intranasal Four (4) times a day as needed for as needed for dry nasal passages Acute rhinosinusitis in each nostril Please take this list to your next doctor s visit. Bring all medications you take, including over the counter medications, herbals and other supplements with you to your doctor s visit. Patients and families are reminded to discard old lists and to update any records with all medication providers or retail pharmacies. Education Materials Exercises to Strengthen Your Lower Back Strong lower back and abdominal muscles work together to support your spine. The exercises below will help strengthen the lower back. It is important that you begin exercising slowly and increase levels gradually. Always begin any exercise program with stretching. If you feel pain while doing any of these exercises, stop and talk to your doctor about a more specific exercise program that better suits your condition. Low back stretch The point of stretching is to make you more flexible and increase your range of motion. Stretch only as much as you are able. Stretch slowly. Do not push your stretch to the limit. If at any point you feel pain while stretching, this is your (temporary) limit. Lie on your back with your knees bent and both feet on the ground. Slowly raise your left knee to your chest as you flatten your lower back against the floor. Hold for 5 seconds. Relax and repeat the exercise with your right knee. Do 10 of these exercises for each leg. Repeat hugging both knees to your chest at the same time. Building lower back strength Start your exercise routine with 10 to 30 minutes a day, 1 to 3 times a day. Initial exercises Lying on your back: 1. Ankle pumps: Move your foot up and down, towards your head, and then away. Repeat 10 times with each foot. 2. Heel slides: Slowly bend your knee, drawing the heel of your foot towards you. Then slide your heel/foot from you, straightening your knee. Do not lift your foot off the floor (this is not a leg lift). 3. Abdominal contraction: Bend your knees and put your hands on your stomach. Tighten your stomach muscles. Hold for 5 seconds, then relax. Repeat 10 times. 4. Straight leg raise: Bend one leg at the knee and keep the other leg straight. Tighten your stomach muscles. Slowly lift your straight leg 6 to 12 inches off the floor and hold for up to 5 seconds. Repeat 10 times on each side. Standin. Wall squats: Stand with your back against the wall. Move your feet about 12 inches away from the wall. Tighten your stomach muscles, and slowly bend your knees until they are at about a 45 degree angle. Do not go down too far. Hold about 5 seconds. Then slowly return to your starting position. Repeat 10 times. 2. Heel raises: Stand facing the wall. Slowly raise the heels of your feet up and down, while keeping your toes on the floor. If you have trouble balancing, you can touch the wall with your hands. Repeat 10 times. More advanced exercises When you feel comfortable enough, try these exercises. 1. Kneeling lumbar extension: Begin on your hands and knees. At the same time, raise and straighten your right arm and left leg until they are parallel to the ground. Hold for 2 seconds and come back slowly to a starting position. Repeat with left arm and right leg, alternating 10 times. 2. Prone lumbar extension: Lie face down, arms extended overhead, palms on the floor. At the same time, raise your right arm and left leg as high as comfortably possible. Hold for 10 seconds and slowly return to start. Repeat with left arm and right leg, alternating 10 times. Gradually build up to 20 times. (Advanced: Repeat this exercise raising both arms and both legs a few inches off the floor at the same time. Hold for 5 seconds and release.) 3. Pelvic tilt: Lie on the floor on your back with your knees bent at 90 degrees. Your feet should be flat on the floor. Inhale, exhale, then slowly contract your abdominal muscles bringing your navel toward your spine. Let your pelvis rock back until your lower back is flat on the floor. Hold for 10 seconds while breathing smoothly. 4. Abdominal crunch: Perform a pelvic tilt (above) flattening your lower back against the floor. Holding the tension in your abdominal muscles, take another breath and raise your shoulder blades off the ground (this is not a full sit-up). Keep your head in line with your body (don t bend your neck forward). Hold for 2 seconds, then slowly lower. [phone] [employer]. [address] [place], [place] [id number]. All rights reserved. This information is not intended as a substitute for professional medical care. Always follow your healthcare professional's instructions. Back Care Tips Caring for your back These are things you can do to prevent a recurrence of acute back pain and to reduce symptoms from chronic back pain: Maintain a healthy weight. If you are overweight, losing weight will help most types of back pain. Exercise is an important part of recovery from most types of back pain. The muscles behind and in front of the spine support the back. This means strengthening both the back muscles and the abdominal muscles will provide better support for your spine. Swimming and brisk walking are good overall exercises to improve your fitness level. Practice safe lifting methods (below). Practice good posture when sitting, standing and walking. Avoid prolonged sitting. This puts more stress on the lower back than standing or walking. Wear quality shoes with sufficient arch support. Foot and ankle alignment can affect back symptoms. Women should avoid wearing high heels. Therapeutic massage can help relax the back muscles without stretching them. During the first 24 to 72 hours after an acute injury or flare-up of chronic back pain, apply an ice pack to the painful area for 20 minutes and then remove it for 20 minutes, over a period of 60 to 90 minutes, or several times a day. As a safety precaution, do not use a heating pad at bedtime. Sleeping on a heating pad can lead to skin gaytan or tissue damage. You can alternate ice and heat therapies. Medicines Talk to your healthcare provider before using medicines, especially if you have other medical problems or are taking other medicines. You may use acetaminophen or ibuprofen to control pain, unless your healthcare provider prescribed other pain medicine. If you have chronic conditions like diabetes, liver or kidney disease, stomach ulcers, or gastrointestinal bleeding, or are taking blood thinners, talk with your healthcare provider before taking any medicines. Be careful if you are given prescription pain medicines, narcotics, or medicine for muscle spasm. They can cause drowsiness, affect your coordination, reflexes, and judgment. Do not drive or operate heavy machinery while taking these types of medicines. Take prescription pain medicine only as prescribed by your healthcare provider. Lumbar stretch Here is a simple stretching exercise that will help relax muscle spasm and keep your back more limber. If exercise makes your back pain worse, don t do it. Lie on your back with your knees bent and both feet on the ground. Slowly raise your left knee to your chest as you flatten your lower back against the floor. Hold for 5 seconds. Relax and repeat the exercise with your right knee. Do 10 of these exercises for each leg. Safe lifting method Don t bend over at the waist to lift an object off the floor. Instead, bend your knees and hips in a squat. Keep your back and head upright Hold the object close to your body, directly in front of you. Straighten your legs to lift the object. Lower the object to the floor in the reverse fashion. If you must slide something across the floor, push it. Posture tips Sitting Sit in chairs with straight backs or low-back support. Keep your knees lower than your hips, with your feet flat on the floor. When driving, sit up straight. Adjust the seat forward so you are not leaning toward the steering wheel. A small pillow or rolled towel behind your lower back may help if you are driving long distances. Standing When standing for long periods, shift most of your weight to one leg at a time. Alternate legs every few minutes. Sleeping The best way to sleep is on your side with your knees bent. Put a low pillow under your head to support your neck in a neutral spine position. Avoid thick pillows that bend your neck to one side. Put a pillow between your legs to further relax your lower back. If you sleep on your back, put pillows under your knees to support your legs in a slightly flexed position. Use a firm mattress. If your mattress sags, replace it, or use a 1/2-inch plywood board under the mattress to add support. Follow-up care Follow up with your healthcare provider, or as advised. If X-rays, a CT scan or an MRI scan were taken, they will be reviewed by a radiologist. You will be notified of any new findings that may affect your care. Call 911 Call 911 if any of the following occur: Trouble breathing Confusion Very drowsy Fainting or loss of consciousness Rapid or very slow heart rate Loss of bowel or bladder control When to seek medical advice Call your healthcare provider right away if any of the following occur: Pain becomes worse or spreads to your arms or legs Weakness or numbness in one or both arms or legs Numbness in the groin area [phone] [employer]. [address] [place] [address]. All rights reserved. This information is not intended as a substitute for professional medical care. Always follow your healthcare professional's instructions. Additional Information VACCINATE! IT SAVES LIVES! Members of the community who have not yet received the COVID-19 vaccine and would like to receive it can visit one of [facility] vaccine clinics. There are many vaccine clinic locations within the [facility]. For locations and available times, please visit [email or web address] It is important to note that some COVID mobile vaccine clinics are held outdoors and may be canceled in rainy or stormy conditions. To learn more about pediatric vaccinations (ages 5-11), we invite you to visit the [facility] webpage. https://www.[email or web address].org/pag es/0213-Orlyt-Kofuwwfblkt-[email or web address] lg-Zbgzn-Woheeoqco.html To learn more about the COVID-19 vaccine, we invite you to visit the CDC website for a list of frequently asked questions. https://www.cdc.gov/coronavirus/20 19-ncov/vaccines/faq.html [facility] Patient Portal Access Instructions: Stay connected with your healthcare team and access your personal medical information anytime with the [facility] Patient Portal. If you would like a full copy of your medical records please contact the [facility] Medical Records Department Monday through Monday between 8a.m. and 4:30p.m. Please follow the directions below to access the portal: 1.Access the email account you provided upon registration to the hospital.2.Look for an invitation email from [facility].3.Open the email and access the invitation link: Accept Invitation to [facility].Fill in the required somers to create your account. Sign into [email or web address] with your username and password that you [...] you will allow to register on the [facility] Patient Portal for access to your information. You can also access the [facility] Patient Portal on the [facility]. Simply click on Health Records under Health [...] Call your local pharmacy or go to [email or web address] to find one close to you.3.Make use of household items: Use cat litter or old coffee grounds to dispose medications if other options are not available. Mix your drugs with these household products, seal them in an airtight container and throw it into the garbage. Call [facility]: [phone] to be sure your drugs can be [...] a CHART COPY Signatures Patient Education Materials Back Exercises, Lumbar Back Care Tips Medication Leaflets My discharge plan and instructions have been reviewed and explained to me and ITHANIA JENNIFER L understand my current condition and have read and understand these discharge instructions. I have received a written copy of the plan/instructions. If I have questions, I am aware that I should contact my doctor. 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 Comparison: CT abdomen pelvis 09/20/2023 Findings: ALIGNMENT: Trace retrolisthesis of L2 on L3, L3 on L4 and L5 on S1. VERTEBRAE: No acute/recent fracture or interval height loss. Mild endplate degenerative changes are most pronounced at L1-L2 and L5-S1. Anterior spinal degenerative enthesopathy changes involve L1-L2 and L5-S1. DISCS: Severe disc height loss at L5-S1 and moderate height loss at L1-L2 followed by L2-L3. PARAVERTEBRAL SOFT TISSUES: Unremarkable. EVALUATION OF INDIVIDUAL LEVELS DEMONSTRATES: T12-L1: Not included in the field of view. L1-2: Small circumferential disc bulge without herniation, central canal stenosis or foraminal narrowing. L2-3: Circumferential disc bulge with possible superimposed central and left central herniation in combination with ligamentum flavum hypertrophy causes left lateral recess narrowing without central canal stenosis or foraminal narrowing. L3-4: No disc herniation, central canal stenosis, or foraminal narrowing. L4-5: Diffuse disc bulge asymmetric to the left and mild facet arthrosis without central canal stenosis or significant foraminal narrowing. L5-S1: Diffuse posterior disc bulge with a superimposed partially calcified central and left subarticular protrusion abuts and may impinge the descending left S1 nerve root (axial image 23 series 3). Slight caudal migration of disc within the left S1 subarticular zone noted. Disc, osteophytosis and mild facet arthrosis results in mild left greater than right foraminal narrowing. LIMITED EVALUATION OF UPPER SACRUM AND SACROILIAC JOINTS: Degenerative changes of the bilateral, right greater than left sacroiliac joints. ADDITIONAL COMMENTS: Redemonstrated are punctate nonobstructing bilateral renal calculi. Right adnexal cystic structure measuring up to 3.2 cm. No additional follow-up imaging recommended. IMPRESSION: 1. No levels of moderate or severe central canal stenosis. 2. Central and left subarticular protrusion at L5-S1 contacting and possibly impinging the descending left S1 nerve root. 3. No levels of moderate or severe foraminal narrowing. 4. Level by level findings as described. 5. Nonobstructing bilateral renal calculi. Interpreted by: Flori Albarran MD Preliminary Report By: Flori Albarran MD Electronically signed By Flori Albarran MD Dictated Date: 03/13/2024 2:45:47 PM Prelim Date: 03/13/2024 3:03:41 PM Sign Date: 03/13/2024 3:03:41 PM Ordering Provider: PROSPER MARIE [facility] 03-11-2024 Hospital Discharge instructions Patient Education 03/11/2024 20:10:22 Panic Attack Panic Attack A panic attack is an extreme fear reaction that comes on for no clear reason. There is often a fear that something terrible will happen or that you may . The attack may last a few minutes up to a few hours. Between attacks, things will seem quite normal. This condition has a psychological cause and can be treated with the help of a therapist or psychiatrist. Medicine can be very helpful for this problem. Panic attacks usually come on suddenly, reaches a peak within minutes, and includes at least 4 of these symptoms: Palpitations, pounding heart, or accelerated heart rate Sweating Chills or heat sensations Trembling or shaking Sensations of shortness of breath or smothering Feelings of choking Chest pain or discomfort Nausea or abdominal distress Feeling dizzy, unsteady, light-headed, or faint Numbness or tingling sensations Fear of dying Fear of going crazy or of losing control Feelings of unreality, strangeness, or detachment from the environment Many of these symptoms can be linked to physical problems, so it is sometimes necessary to rule out conditions like thyroid disorders, heart disease, gastrointestinal problems, and others. They can also start as physical symptoms, but psychologically we may react to them in a fearful way, worsening the way we react and feel. Home care Try to find the sources of stress in your life. They may not be obvious. These may include: oDaily hassles of life which pile up (traffic jams, missed appointments, car troubles). oMajor life changes, both good (new baby, job promotion) and bad (loss of job, loss of loved one). oFeeling that you have too many responsibilities and can't take care of everything at once. oHelplessness: feeling like your problems are too much for you to handle. Notice how your body reacts to stress. Learn to listen to your body signals so that you can take action before the stress becomes severe. Try to be aware of what you were doing before the reaction started; this may give you clues to things that can trigger a reaction. It may be situations in your life, or what you were doing at the time. When possible, avoid or reduce the cause of stress. Avoid hassles, limit the amount of change that is happening in your life at one time or take a break when you feel overloaded. Unfortunately, you can't stay away from many stressful situations. So you need to learn how to manage stress better. Many proven methods will reduce your anxiety. These include simple things like exercise, good nutrition, and adequate rest. Also, there are certain techniques that are helpful: relaxation and breathing exercises, visualization, biofeedback, meditation, or simply taking time-out to clear your mind. For more information about this, ask your doctor or go to a local bookstore and review the many books and tapes available on this subject. Follow-up care Follow-up with your healthcare provider, or as advised. Call 911 Call 911 if you: Have suicidal thoughts, a suicide plan, and the means to carry out the plan Have serious thoughts of hurting someone else Have trouble breathing Are very confused Feel very drowsy or have trouble awakening Faint or lose consciousness Have new chest pain that becomes more severe, lasts longer, or spreads into your shoulder, arm, neck, jaw, or back Have a very rapid or irregular heartbeat Have a seizure When to seek medical advice Call your healthcare provider right away if any of these occur: Worsening of your symptoms to the point of feeling [id number] Feeling that you may try to harm yourself or another Can't sleep or eat for 3 days in a row Increased pain with breathing Increasing feeling of weakness or dizziness Cough with dark colored sputum (phlegm) or blood Fever of 100.4 F (38 C) or higher, or as directed by your healthcare provider Swelling, pain, or redness in one leg Requests by family or friends for you to seek help for your symptoms [id number] [employer]. [address] [place] [address]. All rights reserved. This information is not intended as a substitute for professional medical care. Always follow your healthcare professional's instructions. Follow Up Care 03/11/2024 19:28:54 With:FLORI HERNANDEZ Address: [address] [place] [address] [place] [phone]- [phone] Business (1) When:2-4 days [facility] 03-11-2024 Emergency department Discharge summary Discharge Instructions Thank you for allowing [facility] to assist you with your healthcare needs. The following is important discharge information regarding your hospital visit. Diagnosis from Today's Visit Panic attack What to Do Next Instructions from Your Care Team No qualifying data available. Post Acute Orders No qualifying data available. You Need to Schedule the Following Appointments Follow Up with FLORI HERNANDEZ When:Within 2-4 days Where:[address] [facility] [place] [address] [phone] Business (1) Allergies predniSONE (Mild) Sweats Ceclor Hives Pediazole Weakness, Flushing, Nausea Suprax Weakness, Flushing, Nausea Tape Tylenol Nausea Vicodin Nausea amoxicillin erythromycin Diarrhea penicillin Pruritus, Rash traMADol Hives Medications Please ask your primary doctor or pharmacist before taking any other medication not listed, including over the counter drugs, herbal medications, vitamins and or supplements as they may interact with your home medications. What How Much When Why Instructions Last Dose New LORazepam (Ativan 2 mg oral tablet) 1 tab(s) by mouth Every 8 hours as needed for as needed for anxiety Panic attack Duration: 1 Days Printed Prescription Unchanged albuterol (albuterol MDI (90 mcg/ inh) CFC free inhalation aerosol) See instructions Acute bronchitis 1 to 2 puff(s) Inhalation q4h, As needed for Shortness of breath or wheezing Unchanged albuterol (ProAir HFA MDI (90 mcg/ inh) inhalation aerosol) 1 puff(s) by inhalation Every 6 hours URTI - Viral upper respiratory tract infection Unchanged baclofen (baclofen 10 mg oral tablet) 0.5 tab(s) by mouth Three (3) times a day as needed for Spasm Unchanged clonazePAM (clonazepam 2 mg oral tablet) See instructions Anxiety Take 1 tab p.o. in a.m., one half tab p.o. noon, 1 tab p.o. in the evening. 30-day supply, please cancel any other prescriptions for clonazepam, please fill early due to escalation of dosage., As needed for Anxiety Unchanged clonazePAM (KlonoPIN 1 mg oral tablet) 1 tab(s) by mouth Three (3) times a day Depression, major, recurrent, moderate Unchanged clonazePAM (Klonopin 2 mg oral tablet) 1 tab(s) by mouth Two (2) times a day Anxiety state Duration: 5 Days Unchanged clonazePAM (Klonopin 2 mg oral tablet) 1 tab(s) by mouth Two (2) times a day Anxiety state Duration: 5 Days Unchanged fluticasone nasal (fluticasone 50 mcg/ inh NASAL spray) 2 spray(s) each nostril Once a day Acute rhinosinusitis Duration: 30 Days shake well before using Unchanged lamoTRIgine (LaMICtal 200 mg oral tablet) 1 tab(s) by mouth Two (2) times a day Please fill today. The patient has lost her bottle of Lamictal, and abruptly discontinued it and is in withdrawal. Unchanged metoprolol (Kapspargo Sprinkle 25 mg oral capsule, extended release) 1 cap by mouth Once a day Duration: 100 Days Unchanged OLANZapine (OLANZapine 5 mg oral tablet) 1 tab(s) by mouth Daily at bedtime Stop Abilify Unchanged sodium chloride nasal (Saline Mist 0.65% nasal spray) 1 spray(s) Intranasal Four (4) times a day as needed for as needed for dry nasal passages Acute rhinosinusitis in each nostril Please take this list to your next doctor s visit. Bring all medications you take, including over the counter medications, herbals and other supplements with you to your doctor s visit. Patients and families are reminded to discard old lists and to update any records with all medication providers or retail pharmacies. Education Materials Panic Attack A panic attack is an extreme fear reaction that comes on for no clear reason. There is often a fear that something terrible will happen or that you may . The attack may last a few minutes up to a few hours. Between attacks, things will seem quite normal. This condition has a psychological cause and can be treated with the help of a therapist or psychiatrist. Medicine can be very helpful for this problem. Panic attacks usually come on suddenly, reaches a peak within minutes, and includes at least 4 of these symptoms: Palpitations, pounding heart, or accelerated heart rate Sweating Chills or heat sensations Trembling or shaking Sensations of shortness of breath or smothering Feelings of choking Chest pain or discomfort Nausea or abdominal distress Feeling dizzy, unsteady, light-headed, or faint Numbness or tingling sensations Fear of dying Fear of going crazy or of losing control Feelings of unreality, strangeness, or detachment from the environment Many of these symptoms can be linked to physical problems, so it is sometimes necessary to rule out conditions like thyroid disorders, heart disease, gastrointestinal problems, and others. They can also start as physical symptoms, but psychologically we may react to them in a fearful way, worsening the way we react and feel. Home care Try to find the sources of stress in your life. They may not be obvious. These may include: oDaily hassles of life which pile up (traffic jams, missed appointments, car troubles). oMajor life changes, both good (new baby, job promotion) and bad (loss of job, loss of loved one). oFeeling that you have too many responsibilities and can't take care of everything at once. oHelplessness: feeling like your problems are too much for you to handle. Notice how your body reacts to stress. Learn to listen to your body signals so that you can take action before the stress becomes severe. Try to be aware of what you were doing before the reaction started; this may give you clues to things that can trigger a reaction. It may be situations in your life, or what you were doing at the time. When possible, avoid or reduce the cause of stress. Avoid hassles, limit the amount of change that is happening in your life at one time or take a break when you feel overloaded. Unfortunately, you can't stay away from many stressful situations. So you need to learn how to manage stress better. Many proven methods will reduce your anxiety. These include simple things like exercise, good nutrition, and adequate rest. Also, there are certain techniques that are helpful: relaxation and breathing exercises, visualization, biofeedback, meditation, or simply taking time-out to clear your mind. For more information about this, ask your doctor or go to a local bookstore and review the many books and tapes available on this subject. Follow-up care Follow-up with your healthcare provider, or as advised. Call 911 Call 911 if you: Have suicidal thoughts, a suicide plan, and the means to carry out the plan Have serious thoughts of hurting someone else Have trouble breathing Are very confused Feel very drowsy or have trouble awakening Faint or lose consciousness Have new chest pain that becomes more severe, lasts longer, or spreads into your shoulder, arm, neck, jaw, or back Have a very rapid or irregular heartbeat Have a seizure When to seek medical advice Call your healthcare provider right away if any of these occur: Worsening of your symptoms to the point of feeling [id number] Feeling that you may try to harm yourself or another Can't sleep or eat for 3 days in a row Increased pain with breathing Increasing feeling of weakness or dizziness Cough with dark colored sputum (phlegm) or blood Fever of 100.4 F (38 C) or higher, or as directed by your healthcare provider Swelling, pain, or redness in one leg Requests by family or friends for you to seek help for your symptoms 5660-0136 [employer]. [address] [place] [address]. All rights reserved. This information is not intended as a substitute for professional medical care. Always follow your healthcare professional's instructions. Additional Information VACCINATE! IT SAVES LIVES! Members of the community who have not yet received the COVID-19 vaccine and would like to receive it can visit one of [facility] vaccine clinics. There are many vaccine clinic locations within the [facility]. For locations and available times, please visit [email or web address] It is important to note that some COVID mobile vaccine clinics are held outdoors and may be canceled in rainy or stormy conditions. To learn more about pediatric vaccinations (ages 5-11), we invite you to visit the [facility] webpage. https://www.[facility].org/pag es/6610-Ruyxe-Cxlcvrwqejs-Frequent wd-Nkmld-Yviwxlcis.html To learn more about the COVID-19 vaccine, we invite you to visit the CDC website for a list of frequently asked questions. https://www.cdc.gov/coronavirus/ 19-ncov/vaccines/faq.html [facility] Access Instructions: Stay connected with your healthcare team and access your personal medical information anytime with the [facility]. If you would like a full copy of your medical records please contact the [facility] Medical Records Department Monday through Monday between 8a.m. and 4:30p.m. Please follow the directions below to access the portal: 1.Access the email account you provided upon registration to the [facility].2.Look for an invitation email from [facility].3.Open the email and access the invitation link: Accept Invitation to [facility]4.Fill in the required somers to create your account. Sign into www.[email or web address] Lanes with your username and password that you [...] you will allow to register on the [facility] Patient Portal for access to your information. You can also access the [facility] Patient Portal on the Melon. Simply click on Health Records under TAPP Data and then click on the [employer] logo. HOW TO SAFELY DISPOSE OF PRESCRIPTION [...] Call your local pharmacy or go to [email or web address] to find one close to you.3.Make use of household items: Use cat litter or old coffee grounds to dispose medications if other options are not available. Mix your drugs with these household products, seal them in an airtight container and throw it into the garbage. Call [facility]: [phone] to be sure your drugs can be [...] a CHART COPY Signatures Patient Education Materials Panic Attack Medication Leaflets My discharge plan and instructions have been reviewed and explained to me and I,CAROLINA MONTEIRO understand my current condition and have read and understand these discharge instructions. I have received a written copy of the plan/instructions. If I have questions, I am aware that I should contact my doctor. 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 RICE RICE stands for rest, ice, compression, and elevation. Doing these things helps limit pain and swelling after an injury. RICE also helps injuries heal faster. Use RICE for sprains, strains, and severe bruises or bumps. Follow the tips on this handout and begin RICE as soon as possible after an injury. Rest Pain is your body s way of telling you to rest an injured area. Whether you have hurt an elbow, hand, foot, or knee, limiting its use will prevent further injury and help you heal. Ice Applying ice right after an injury helps prevent swelling and reduce pain. Don t place ice directly on your skin. Wrap a cold pack or bag of ice in a thin cloth. Place it over the injured area. Ice for 10 minutes every 3 hours. Don t ice for more than 20 minutes at a time. Compression Putting pressure (compression) on an injury helps prevent swelling and provides support. Wrap the injured area firmly with an elastic bandage. If your hand or foot tingles, becomes discolored, or feels cold to the touch, the bandage may be too tight. Rewrap it more loosely. If your bandage becomes too loose, rewrap it. Do not wear an elastic bandage overnight. Elevation Keeping an injury elevated helps reduce swelling, pain, and throbbing. Elevation is most effective when the injury is kept elevated higher than the heart. Call your healthcare provider if you notice any of the following: Fingers or toes feel numb, are cold to the touch, or change color. Skin looks shiny or tight. Pain, swelling, or bruising worsens and is not improved with elevation. 5811-9129 [employer]. [address] [place] [address]. All rights reserved. This information is not intended as a substitute for professional medical care. Always follow your healthcare professional's instructions. Follow Up Care 03/10/2024 10:48:48 With:FLORI HERNANDEZ DO Address: [address] [place] [address] [place] [address] [phone] When:2-4 days [facility] 03-10-2024 Note Discharge Instructions Thank you for allowing [facility] to assist you with your healthcare needs. The following is important discharge information regarding your hospital visit. Diagnosis from Today's Visit Contusion of right elbow Contusion of right knee Fall at home Injury of right knee What to Do Next Instructions from Your Care Team Discharge Home Equipment - Ordered -- Crutches, 99 month(s), 03/10/24 11:32:00 EDT Discharge Return to Work, School, or Sports (Return to Work, School, or Sports) - Ordered -- 03/11/24, May return to: work, 03/10/24 11:04:00 EDT Post Acute Orders No qualifying data available. You Need to Schedule the Following Appointments Follow Up with DAVID, FLORI DO When:Within 2-4 days Where:[address] [facility] [place] [address]- [phone] Allergies predniSONE (Mild) Sweats Ceclor Hives Pediazole Weakness, Flushing, Nausea Suprax Weakness, Flushing, Nausea Tape Tylenol Nausea Vicodin Nausea amoxicillin erythromycin Diarrhea penicillin Pruritus, Rash traMADol Hives Medications Please ask your primary doctor or pharmacist before taking any other medication not listed, including over the counter drugs, herbal medications, vitamins and or supplements as they may interact with your home medications. What How Much When Why Instructions Last Dose Unchanged albuterol (albuterol MDI (90 mcg/ inh) CFC free inhalation aerosol) See instructions Acute bronchitis 1 to 2 puff(s) Inhalation q4h, As needed for Shortness of breath or wheezing Unchanged albuterol (ProAir HFA MDI (90 mcg/ inh) inhalation aerosol) 1 puff(s) by inhalation Every 6 hours URTI - Viral upper respiratory tract infection Unchanged baclofen (baclofen 10 mg oral tablet) 0.5 tab(s) by mouth Three (3) times a day as needed for Spasm Unchanged clonazePAM (clonazepam 2 mg oral tablet) See instructions Anxiety Take 1 tab p.o. in a.m., one half tab p.o. noon, 1 tab p.o. in the evening. 30-day supply, please cancel any other prescriptions for clonazepam, please fill early due to escalation of dosage., As needed for Anxiety Unchanged clonazePAM (KlonoPIN 1 mg oral tablet) 1 tab(s) by mouth Three (3) times a day Depression, major, recurrent, moderate Unchanged clonazePAM (Klonopin 2 mg oral tablet) 1 tab(s) by mouth Two (2) times a day Anxiety state Duration: 5 Days Unchanged clonazePAM (Klonopin 2 mg oral tablet) 1 tab(s) by mouth Two (2) times a day Anxiety state Duration: 5 Days Unchanged fluticasone nasal (fluticasone 50 mcg/ inh NASAL spray) 2 spray(s) each nostril Once a day Acute rhinosinusitis Duration: 30 Days shake well before using Unchanged lamoTRIgine (LaMICtal 200 mg oral tablet) 1 tab(s) by mouth Two (2) times a day Please fill today. The patient has lost her bottle of Lamictal, and abruptly discontinued it and is in withdrawal. Unchanged metoprolol (Kapspargo Sprinkle 25 mg oral capsule, extended release) 1 cap by mouth Once a day Duration: 100 Days Unchanged OLANZapine (OLANZapine 5 mg oral tablet) 1 tab(s) by mouth Daily at bedtime Stop Abilify Unchanged sodium chloride nasal (Saline Mist 0.65% nasal spray) 1 spray(s) Intranasal Four (4) times a day as needed for as needed for dry nasal passages Acute rhinosinusitis in each nostril Please take this list to your next doctor s visit. Bring all medications you take, including over the counter medications, herbals and other supplements with you to your doctor s visit. Patients and families are reminded to discard old lists and to update any records with all medication providers or retail pharmacies. Education Materials RICE RICE stands for rest, ice, compression, and elevation. Doing these things helps limit pain and swelling after an injury. RICE also helps injuries heal faster. Use RICE for sprains, strains, and severe bruises or bumps. Follow the tips on this handout and begin RICE as soon as possible after an injury. Rest Pain is your body s way of telling you to rest an injured area. Whether you have hurt an elbow, hand, foot, or knee, limiting its use will prevent further injury and help you heal. Ice Applying ice right after an injury helps prevent swelling and reduce pain. Don t place ice directly on your skin. Wrap a cold pack or bag of ice in a thin cloth. Place it over the injured area. Ice for 10 minutes every 3 hours. Don t ice for more than 20 minutes at a time. Compression Putting pressure (compression) on an injury helps prevent swelling and provides support. Wrap the injured area firmly with an elastic bandage. If your hand or foot tingles, becomes discolored, or feels cold to the touch, the bandage may be too tight. Rewrap it more loosely. If your bandage becomes too loose, rewrap it. Do not wear an elastic bandage overnight. Elevation Keeping an injury elevated helps reduce swelling, pain, and throbbing. Elevation is most effective when the injury is kept elevated higher than the heart. Call your healthcare provider if you notice any of the following: Fingers or toes feel numb, are cold to the touch, or change color. Skin looks shiny or tight. Pain, swelling, or bruising worsens and is not improved with elevation. 3097-3145 [employer]. [address] [place] [address], [place] [address]. All rights reserved. This information is not intended as a substitute for professional medical care. Always follow your healthcare professional's instructions. Additional Information VACCINATE! IT SAVES LIVES! Members of the community who have not yet received the COVID-19 vaccine and would like to receive it can visit one of [facility] vaccine clinics. There are many vaccine clinic locations within the [facility]. For locations and available times, please visit [email or web address] It is important to note that some COVID mobile vaccine clinics are held outdoors and may be canceled in rainy or stormy conditions. To learn more about pediatric vaccinations (ages 5-11), we invite you to visit the [facility] webpage. https://www.[employer].org/pag es/9851-Dlocw-Flocncrlquf-Frequent sp-Dfzay-Cauwnqbrq.html To learn more about the COVID-19 vaccine, we invite you to visit the CDC website for a list of frequently asked questions. https://www.cdc.gov/coronavirus/-ncov/vaccines/faq.html [facility] Patient Portal Access Instructions: Stay connected with your healthcare team and access your personal medical information anytime with the [facility] Patient Portal. If you would like a full copy of your medical records please contact the [facility] Medical Records Department Monday through Monday between 8a.m. and 4:30p.m. Please follow the directions below to access the portal: 1.Access the email account you provided upon registration to the hospital.2.Look for an invitation email from [facility].3.Open the email and access the invitation link: Accept Invitation to [facility]4.Fill in the required somers to create your account. Sign into www.Buzz Lanes with your username and password that you [...] you will allow to register on the [facility] Patient Portal for access to your information. You can also access the [facility] Patient Portal on the [employer] bushra. Simply click on Health Records under Health Data and then click on the [employer]Pack logo. HOW TO SAFELY DISPOSE OF PRESCRIPTION [...] Call your local pharmacy or go to [email or web address] to find one close to you.3.Make use of household items: Use cat litter or old coffee grounds to dispose medications if other options are not available. Mix your drugs with these household products, seal them in an airtight container and throw it into the garbage. Call [facility]: [phone] to be sure your drugs can be [...] a CHART COPY Signatures Patient Education Materials R.I.C.E. Medication Leaflets My discharge plan and instructions have been reviewed and explained to me and I,THANIA CAROLINA Crystal understand my current condition and have read and understand these discharge instructions. I have received a written copy of the plan/instructions. If I have questions, I am aware that I should contact my doctor. Patient/Finger Cobbler Signature: Date/Time: Relationship to Patient: ___ Witness Name/Signature: Date/Time: [facility] 03-10-2024 Note ORIGINAL EXAMINATION: THREE XRAY VIEWS OF THE RIGHT KNEE03/10/2024 11:17 am KNEE 3 VIEWS RIGHT COMPARISON: None HISTORY: ORDERING SYSTEM PROVIDED HISTORY: Reason for Exam: Pain FINDINGS: There is no evidence of acute fracture or subluxation. The joint spaces are maintained and there are no bony lesions. The soft tissues are unremarkable. IMPRESSION: No visible fracture or dislocation. Interpreted by: Amador Fraire MD Preliminary Report By: Amador Fraire MD Electronically signed By Amador Fraire MD Dictated Date: 03/10/2024 11:23:28 AM Prelim Date: 03/10/2024 11:24:10 AM Sign Date: 03/10/2024 11:24:10 AM Ordering Provider: JENISE HARDIN [facility] 03-08-2024 Hospital Discharge instructions Patient Education 03/08/2024 16:24:46 Anxiety Reaction Anxiety Reaction Anxiety is the feeling we all get when we think something bad might happen. It is a normal response to stress and usually causes only a mild reaction. When anxiety becomes more severe, it can interfere with daily life. In some cases, you may not even be aware of what it is you re anxious about. There may also be a genetic link or it may be a learned behavior in the home. Both psychological and physical triggers cause stress reaction. It's often a response to fear or emotional stress, real or imagined. This stress may come from home, family, work, or social relationships. During an anxiety reaction, you may feel: Helpless Nervous Depressed Irritable Your body may show signs of anxiety in many ways. You may experience: Dry mouth Shakiness Dizziness Weakness Trouble breathing Breathing fast (hyperventilating) Chest pressure Sweating Headache Nausea Diarrhea Tiredness Inability to sleep Sexual problems Home care Try to locate the sources of stress in your life. They may not be obvious. These may include: oDaily hassles of life (such as traffic jams, missed appointments, or car troubles) oMajor life changes, both good (new baby or job promotion) and bad (loss of job or loss of loved one) oOverload: feeling that you have too many responsibilities and can't take care of all of them at once oFeeling helpless or feeling that your problems are beyond what you re able to solve Notice how your body reacts to stress. Learn to listen to your body signals. This will help you take action before the stress becomes severe. When you can, do something about the source of your stress. (Avoid hassles, limit the amount of change that happens in your life at one time and take a break when you feel overloaded). Unfortunately, many stressful situations can't be avoided. It is necessary to learn how to better manage stress. There are many proven methods that will reduce your anxiety. These include simple things like exercise, good nutrition, and adequate rest. Also, there are certain techniques that are helpful: oRelaxation oBreathing exercises oVisualization oBiofeedback oMeditation For more information about this, consult your healthcare provider or go to a local bookstore and review the many books and tapes available on this subject. Follow-up care If you feel that your anxiety is not responding to self-help measures, contact your healthcare provider or make an appointment with a counselor. You may need short-term psychological counseling and temporary medicine to help you manage stress. Call 911 Call 911 if any of these happen: Trouble breathing Confusion Drowsiness or trouble wakening Fainting or loss of consciousness Rapid heart rate Seizure New chest pain that becomes more severe, lasts longer, or spreads into your shoulder, arm, neck, jaw, or back When to seek medical advice Call your healthcare provider right away if any of these happen: Your symptoms get worse Severe headache not relieved by rest and mild pain reliever 4096-1023 [employer]. [address] [place] [address]. All rights reserved. This information is not intended as a substitute for professional medical care. Always follow your healthcare professional's instructions. Follow Up Care 03/08/2024 14:39:36 With:FLORI HERNANDEZ DO Address: [address] [place] [phone] When:2-4 days [facility] 03-08-2024 Note Discharge Instructions Thank you for allowing [facility] to assist you with your healthcare needs. The following is important discharge information regarding your hospital visit. Diagnosis from Today's Visit Anxiety state What to Do Next Instructions from Your Care Team Discharge Return to Work, School, or Sports (Return to Work, School, or Sports) - Ordered -- 03/08/24, 03/11/24, May return to: work, 03/08/24 16:23:00 EDT Post Acute Orders No qualifying data available. You Need to Schedule the Following Appointments Follow Up with FLORI HERNANDEZ DO When:Within 2-4 days Where:[address] [place] [phone] Allergies predniSONE (Mild) Sweats Ceclor Hives Pediazole Weakness, Flushing, Nausea Suprax Weakness, Flushing, Nausea Tape Tylenol Nausea Vicodin Nausea amoxicillin erythromycin Diarrhea penicillin Pruritus, Rash traMADol Hives Medications Please ask your primary doctor or pharmacist before taking any other medication not listed, including over the counter drugs, herbal medications, vitamins and or supplements as they may interact with your home medications. What How Much When Why Instructions Last Dose Changed clonazePAM (clonazepam 2 mg oral tablet) See instructions Anxiety Take 1 tab p.o. in a.m., one half tab p.o. noon, 1 tab p.o. in the evening. 30-day supply, please cancel any other prescriptions for clonazepam, please fill early due to escalation of dosage., As needed for Anxiety Changed clonazePAM (KlonoPIN 1 mg oral tablet) 1 tab(s) by mouth Three (3) times a day Depression, major, recurrent, moderate Changed clonazePAM (Klonopin 2 mg oral tablet) 1 tab(s) by mouth Two (2) times a day Anxiety state Duration: 5 Days Printed Prescription Unchanged albuterol (albuterol MDI (90 mcg/ inh) CFC free inhalation aerosol) See instructions Acute bronchitis 1 to 2 puff(s) Inhalation q4h, As needed for Shortness of breath or wheezing Unchanged albuterol (ProAir HFA MDI (90 mcg/ inh) inhalation aerosol) 1 puff(s) by inhalation Every 6 hours URTI - Viral upper respiratory tract infection Unchanged baclofen (baclofen 10 mg oral tablet) 0.5 tab(s) by mouth Three (3) times a day as needed for Spasm Unchanged fluticasone nasal (fluticasone 50 mcg/ inh NASAL spray) 2 spray(s) each nostril Once a day Acute rhinosinusitis Duration: 30 Days shake well before using Unchanged lamoTRIgine (LaMICtal 200 mg oral tablet) 1 tab(s) by mouth Two (2) times a day Please fill today. The patient has lost her bottle of Lamictal, and abruptly discontinued it and is in withdrawal. Unchanged metoprolol (Kapspargo Sprinkle 25 mg oral capsule, extended release) 1 cap by mouth Once a day Duration: 100 Days Unchanged OLANZapine (OLANZapine 5 mg oral tablet) 1 tab(s) by mouth Daily at bedtime Stop Abilify Unchanged sodium chloride nasal (Saline Mist 0.65% nasal spray) 1 spray(s) Intranasal Four (4) times a day as needed for as needed for dry nasal passages Acute rhinosinusitis in each nostril Please take this list to your next doctor s visit. Bring all medications you take, including over the counter medications, herbals and other supplements with you to your doctor s visit. Patients and families are reminded to discard old lists and to update any records with all medication providers or retail pharmacies. Education Materials Anxiety Reaction Anxiety is the feeling we all get when we think something bad might happen. It is a normal response to stress and usually causes only a mild reaction. When anxiety becomes more severe, it can interfere with daily life. In some cases, you may not even be aware of what it is you re anxious about. There may also be a genetic link or it may be a learned behavior in the home. Both psychological and physical triggers cause stress reaction. It's often a response to fear or emotional stress, real or imagined. This stress may come from home, family, work, or social relationships. During an anxiety reaction, you may feel: Helpless Nervous Depressed Irritable Your body may show signs of anxiety in many ways. You may experience: Dry mouth Shakiness Dizziness Weakness Trouble breathing Breathing fast (hyperventilating) Chest pressure Sweating Headache Nausea Diarrhea Tiredness Inability to sleep Sexual problems Home care Try to locate the sources of stress in your life. They may not be obvious. These may include: oDaily hassles of life (such as traffic jams, missed appointments, or car troubles) oMajor life changes, both good (new baby or job promotion) and bad (loss of job or loss of loved one) oOverload: feeling that you have too many responsibilities and can't take care of all of them at once oFeeling helpless or feeling that your problems are beyond what you re able to solve Notice how your body reacts to stress. Learn to listen to your body signals. This will help you take action before the stress becomes severe. When you can, do something about the source of your stress. (Avoid hassles, limit the amount of change that happens in your life at one time and take a break when you feel overloaded). Unfortunately, many stressful situations can't be avoided. It is necessary to learn how to better manage stress. There are many proven methods that will reduce your anxiety. These include simple things like exercise, good nutrition, and adequate rest. Also, there are certain techniques that are helpful: oRelaxation oBreathing exercises oVisualization oBiofeedback oMeditation For more information about this, consult your healthcare provider or go to a local bookstore and review the many books and tapes available on this subject. Follow-up care If you feel that your anxiety is not responding to self-help measures, contact your healthcare provider or make an appointment with a counselor. You may need short-term psychological counseling and temporary medicine to help you manage stress. Call 911 Call 911 if any of these happen: Trouble breathing Confusion Drowsiness or trouble wakening Fainting or loss of consciousness Rapid heart rate Seizure New chest pain that becomes more severe, lasts longer, or spreads into your shoulder, arm, neck, jaw, or back When to seek medical advice Call your healthcare provider right away if any of these happen: Your symptoms get worse Severe headache not relieved by rest and mild pain reliever [phone] [employer]. [address] [place] [address]. All rights reserved. This information is not intended as a substitute for professional medical care. Always follow your healthcare professional's instructions. Additional Information VACCINATE! IT SAVES LIVES! Members of the community who have not yet received the COVID-19 vaccine and would like to receive it can visit one of [facility] vaccine clinics. There are many vaccine clinic locations within the [facility]. For locations and available times, please visit [email or web address] It is important to note that some COVID mobile vaccine clinics are held outdoors and may be canceled in rainy or stormy conditions. To learn more about pediatric vaccinations (ages 5-11), we invite you to visit the [facility] webpage. https://www.[facility].org/pag es/7879-Umune-Nvoewmrhxbj-Frequent cz-Yelgp-Elmmjcvwq.html To learn more about the COVID-19 vaccine, we invite you to visit the CDC website for a list of frequently asked questions. https://www.cdc.gov/coronavirus/20 19-ncov/vaccines/faq.html [facility] Patient Portal Access Instructions: Stay connected with your healthcare team and access your personal medical information anytime with the [facility] Patient Portal. If you would like a full copy of your medical records please contact the [facility] Medical Records Department Monday through Monday between 8a.m. and 4:30p.m. Please follow the directions below to access the portal: 1.Access the email account you provided upon registration to the [facility].2.Look for an invitation email from [facility].3.Open the email and access the invitation link: Accept Invitation to [facility]4.Fill in the required somers to create your account. Sign into [email or web address] with your username and password that you [...] you will allow to register on the [facility] Patient Portal for access to your information. You can also access the [facility] Patient Portal on the Melon. Simply click on Health Records under Health Data and then click on the [employer] logo. HOW TO SAFELY DISPOSE OF PRESCRIPTION [...] Call your local pharmacy or go to [email or web address] to find one close to you.3.Make use of household items: Use cat litter or old coffee grounds to dispose medications if other options are not available. Mix your drugs with these household products, seal them in an airtight container and throw it into the garbage. Call [facility]: [phone] to be sure your drugs can be [...] a CHART COPY Signatures Patient Education Materials Anxiety Reaction Medication Leaflets My discharge plan and instructions have been reviewed and explained to me and I,CAROLINA MONTEIRO understand my current condition and have read and understand these discharge instructions. I have received a written copy of the plan/instructions. If I have questions, I am aware that I should contact my doctor. Patient/Finger Cobbler Signature: Date/Time: Relationship to Patient: ___ Witness Name/Signature: Date/Time: [facility] 02-16-2024 Hospital Discharge instructions Patient Education 02/16/2024 11:49:35 Drug Reaction, Other Reaction to Medicine (Other Type) You are having a reaction to a medicine you have taken. This may not be the same as an allergic reaction. It is an undesired, unfavorable reaction, or a side effect of a medicine. This can cause a variety of symptoms, including: Dizziness or headache Rash Flushing or hot sensation Nausea, vomiting, or stomach pain Diarrhea or constipation Trouble breathing High or low blood pressure A reaction can be an upset stomach from something like aspirin or ibuprofen, feeling faint after taking a blood pressure medicine, feeling anxious, and many other things. Symptoms of a medicine reaction can range from very mild to very severe. In most cases, the reaction goes away within 1 to 12 hours. But it will probably occur again if you take this same medicine. Your healthcare provider will advise you whether to change how much, when, or how often you take this medicine. He or she may also advise you to discontinue this medicine or switch to another one. Home care Another medicine may be recommended to reduce your symptoms until the medicine s effect wears off. Follow your healthcare provider s advice. When the medicine s effect has worn off, there should be no further problem as long as you don't take the same medicine again. Ask your healthcare provider if you should also avoid similar medicines. Write down the information so you will remember it. Make certain the medicine reaction is documented in your medical record. Follow-up care Follow up with your healthcare provider, or as advised if your symptoms are not better within 24 hours. When to seek medical advice Call your healthcare provider right away if any of these occur. New symptoms that concern you Worsening of your current symptoms, including rash or facial swelling Symptoms that are not relieved by the treatment advised Fever of 100.4 F (38 C) or higher, or as advised by your healthcare provider Call 911 Call 911 if any of these occur: Trouble breathing or swallowing, or wheezing Hoarse voice or trouble speaking Confusion Extreme drowsiness or trouble awakening Fainting or loss of consciousness Rapid heart rate or slow heart rate Very low or very high blood pressure Vomiting blood, or large amounts of blood in stool Seizure [id number] [employer]. [address] [place] [address]. All rights reserved. This information is not intended as a substitute for professional medical care. Always follow your healthcare professional's instructions. Follow Up Care 02/16/2024 11:08:40 With:FRANDY FRANKLIN MD Address: [address] [address]- When:2-4 days With:FLORI HERNANDEZ DO Address: [address] [place] [address]- [phone] When:2-4 days [facility] 02-16-2024 Note Discharge Instructions Thank you for allowing [facility] to assist you with your healthcare needs. The following is important discharge information regarding your hospital visit. Diagnosis from Today's Visit Adverse reaction to medication Medication reaction What to Do Next Instructions from Your Care Team No qualifying data available. Post Acute Orders No qualifying data available. You Need to Schedule the Following Appointments Follow Up with FRANDY FRANKLIN MD When Within 2-4 days Where: [address] [facility] [address] [place] [address]- Follow Up with FLORI HERNANDEZ DO When Within 2-4 days Where: [address] [facility] [place] [phone] Allergies predniSONE (Sweats) Ceclor (Hives) Pediazole (Weakness, Flushing, Nausea) Suprax (Weakness, Flushing, Nausea) Tape Tylenol (Nausea) Vicodin (Nausea) amoxicillin erythromycin (Diarrhea) penicillin (Pruritus, Rash) traMADol (Hives) Medications Please ask your primary doctor or pharmacist before taking any other medication not listed, including over the counter drugs, herbal medications, vitamins and or supplements as they may interact with your home medications. What How Much When Why Instructions Last Dose Unchanged albuterol (albuterol MDI (90 mcg/ inh) CFC free inhalation aerosol) See instructions Acute bronchitis 1 to 2 puff(s) Inhalation q4h Unchanged albuterol (ProAir HFA MDI (90 mcg/ inh) inhalation aerosol) 1 puff(s) by inhalation Every 6 hours URTI - Viral upper respiratory tract infection Unchanged APAP/ butalbital/ caffeine (APAP/ butalbital/ caffeine 325-50-40 mg oral tablet (Fioricet)) 1 tab(s) by mouth Every 4 hours as needed for as needed for headache Duration: 7 Days not to exceed 6 tablets/ day Unchanged baclofen (baclofen 10 mg oral tablet) 0.5 tab(s) by mouth Three (3) times a day as needed for Spasm Unchanged clonazePAM (clonazepam 2 mg oral tablet) See instructions Anxiety Take 1 tab p.o. in a.m., one half tab p.o. noon, 1 tab p.o. in the evening. 30-day supply, please cancel any other prescriptions for clonazepam, please fill early due to escalation of dosage. Unchanged fluticasone nasal (fluticasone 50 mcg/ inh NASAL spray) 2 spray(s) each nostril Once a day Acute rhinosinusitis Duration: 30 Days shake well before using Unchanged guaiFENesin (guaiFENesin 600 mg oral tablet, extended release) 1 tab(s) by mouth Every 12 hours Acute bronchitis Duration: 10 Days Unchanged metoprolol (Kapspargo Sprinkle 25 mg oral capsule, extended release) 1 cap by mouth Once a day Duration: 100 Days Unchanged OLANZapine (OLANZapine 5 mg oral tablet) 1 tab(s) by mouth Daily at bedtime Stop Abilify Unchanged sodium chloride nasal (Saline Mist 0.65% nasal spray) 1 spray(s) Intranasal Four (4) times a day as needed for as needed for dry nasal passages Acute rhinosinusitis in each nostril Please take this list to your next doctor s visit. Bring all medications you take, including over the counter medications, herbals and other supplements with you to your doctor s visit. Patients and families are reminded to discard old lists and to update any records with all medication providers or retail pharmacies. Education Materials Reaction to Medicine (Other Type) You are having a reaction to a medicine you have taken. This may not be the same as an allergic reaction. It is an undesired, unfavorable reaction, or a side effect of a medicine. This can cause a variety of symptoms, including: Dizziness or headache Rash Flushing or hot sensation Nausea, vomiting, or stomach pain Diarrhea or constipation Trouble breathing High or low blood pressure A reaction can be an upset stomach from something like aspirin or ibuprofen, feeling faint after taking a blood pressure medicine, feeling anxious, and many other things. Symptoms of a medicine reaction can range from very mild to very severe. In most cases, the reaction goes away within 1 to 12 hours. But it will probably occur again if you take this same medicine. Your healthcare provider will advise you whether to change how much, when, or how often you take this medicine. He or she may also advise you to discontinue this medicine or switch to another one. Home care Another medicine may be recommended to reduce your symptoms until the medicine s effect wears off. Follow your healthcare provider s advice. When the medicine s effect has worn off, there should be no further problem as long as you don't take the same medicine again. Ask your healthcare provider if you should also avoid similar medicines. Write down the information so you will remember it. Make certain the medicine reaction is documented in your medical record. Follow-up care Follow up with your healthcare provider, or as advised if your symptoms are not better within 24 hours. When to seek medical advice Call your healthcare provider right away if any of these occur. New symptoms that concern you Worsening of your current symptoms, including rash or facial swelling Symptoms that are not relieved by the treatment advised Fever of 100.4 F (38 C) or higher, or as advised by your healthcare provider Call 911 Call 911 if any of these occur: Trouble breathing or swallowing, or wheezing Hoarse voice or trouble speaking Confusion Extreme drowsiness or trouble awakening Fainting or loss of consciousness Rapid heart rate or slow heart rate Very low or very high blood pressure Vomiting blood, or large amounts of blood in stool Seizure [id number] [employer]. [address] [place] [address]. All rights reserved. This information is not intended as a substitute for professional medical care. Always follow your healthcare professional's instructions. Additional Information VACCINATE! IT SAVES LIVES! Members of the community who have not yet received the COVID-19 vaccine and would like to receive it can visit one of [facility] vaccine clinics. There are many vaccine clinic locations within the [facility]. For locations and available times, please visit [email or web address] It is important to note that some COVID mobile vaccine clinics are held outdoors and may be canceled in rainy or stormy conditions. To learn more about pediatric vaccinations (ages 5-11), we invite you to visit the [facility] webpage. https://www.[facility].org/pag es/8613-Msngw-Dawrszyasuo-Frequent wa-Bhsdx-Hcbcumfda.html To learn more about the COVID-19 vaccine, we invite you to visit the CDC website for a list of frequently asked questions. https://www.cdc.gov/coronavirus/-ncov/vaccines/faq.html [facility] Patient Portal Access Instructions: Stay connected with your healthcare team and access your personal medical information anytime with the [facility] Patient Portal. If you would like a full copy of your medical records please contact the [facility] Medical Records Department Monday through Monday between 8a.m. and 4:30p.m. Please follow the directions below to access the portal: 1.Access the email account you provided upon registration to the [facility].2.Look for an invitation email from [facility].3.Open the email and access the invitation link: Accept Invitation to [facility]4.Fill in the required somers to create your [...] you will allow to register on the [facility] Patient Portal for access to your information. You can also access the [facility] Patient Portal on the [employer] bushra. Simply click on Health Records under Health Data and then click on the [employer] logo. HOW TO SAFELY DISPOSE OF PRESCRIPTION [...] Call your local pharmacy or go to [email or web address] to find one close to you.3.Make use of household items: Use cat litter or old coffee grounds to dispose medications if other options are not available. Mix your drugs with these household products, seal them in an airtight container and throw it into the garbage. Call [facility]: [phone] to be sure your drugs can be [...] a CHART COPY Signatures Patient Education Materials Drug Reaction, Other Medication Leaflets My discharge plan and instructions have been reviewed and explained to me and I,CAROLINA MONTEIRO understand my current condition and have read and understand these discharge instructions. I have received a written copy of the plan/instructions. If I have questions, I am aware that I should contact my doctor. Patient/Finger Cobbler Signature: Date/Time: Relationship to Patient: ___ Witness Name/Signature: Date/Time: [facility] 02-16-2024 Note Sinus rhythm Electronic Signature: ERIBERTO CHRISTINE MD 02/16/2024 11:35:25 [facility] 02-03-2024 Note HNO ID: [id number] Author: SHU CUNNINGHAM APRN.CROSS CUT SAW OPERATOR Service: ? Author Type: Nurse Practitioner Type: Progress Notes Filed: 02/03/2024 15:08 Note Text: CC: Patient presents with: Ear Pain: Right ear pain x2 weeks HPI: Carolina Monteiro is a 38 year old female who presents to the office with complaint of ear symptoms for a week. Symptoms are staying the same. Associated symptoms includes ear pain. Denies fever, nausea, vomiting , and diarrhea. Treatments tried include nothing so far. with no relief of symptoms. Sick contacts: unknown. History of asthma, frequent episodes of bronchitis, chronic bronchitis, bronchiectasis or COPD: No Smoker: No Seasonal/environmental allergies: No The ROS is otherwise negative. The patient's pmh, medications, allergies, and past visits are reviewed. PHYSICAL EXAM: BP 118/62 Pulse 113 Temp 37.1 ?C (98.8 ?F) Resp 18 Wt 73.1 kg (161 lb 2.5 oz) LMP 09/14/2020 SpO2 98% General appearance: alert, cooperative, pleasant, in no acute distress Head: Normocephalic Eyes: EOM's intact, conjunctiva pink and moist, no icterus, sclera white, non-injected Ears: Right ear: External ear/canal- scratch on bottom of ear canal, TM - clear with good landmarks. Left ear: External ear/canal- Normal, TM - clear with good landmarks Oropharynx:moist without lesions, No erythema, exudates or tonsillar hypertrophy. Heart: Negative. RRR without obvious murmur, gallop, or rubs. No ectopy. Lungs: clear to auscultation, without rales or wheeze, good air exchange PAST MEDICAL HISTORY Diagnosis Date Anxiety DDD (degenerative disc disease), lumbar PAST SURGICAL HISTORY Procedure Laterality Date ADENOIDECTOMY PRIMARY APPENDECTOMY CHOLECYSTECTOMY 2011 ERCP 2011 stent placed OVARIAN CYSTECTOMY UNI/BI PAST SURGICAL HISTORY OF 1992 surgery on nasal septum PAST SURGICAL HISTORY OF 1996 lumpectomy on left breast PAST SURGICAL HISTORY OF 2006 bulging disc repair ALLERGIES Clindamycin, Dilaudid [Hydromorphone (Bulk)], Penicillins, and Tylenol [Acetaminophen] MEDICATIONS lamoTRIgine (LAMICTAL) 200 mg tablet Take 1 tablet by mouth every 12 hours. ARIPiprazole (ABILIFY) 5 mg tablet Take 5 mg by mouth once daily. MAT, IRRADIATED PREP MAT, CONTEC, lamotrigine (LAMICTAL ORAL) Take by mouth. clonazePAM (KLONOPIN) 1 mg tablet Take 1 mg by mouth twice daily as needed. tiZANidine (ZANAFLEX) 4 mg tablet take 1 tablet by mouth every 8 hours if needed for muscle spasm (Patient not taking: Reported on 05/18/2022) BACLOFEN ORAL Take by mouth. (Patient not taking: Reported on 05/18/2022) FAMILY HISTORY Problem Relation Age of Onset None Mother Hypertension Father other (hypercholestermia) Father Cancer Maternal Grandmother Heart Maternal Grandfather Social History Tobacco Use Smoking status: Former Smokeless tobacco: Never Vaping Use Vaping Use: Never used Substance Use Topics Alcohol use: No Drug use: No ASSESSMENT/PLAN: 1. Acute pain of right ear - ICD9: 388.70, ICD10: H92.01 No treatment at this time. Patient was instructed to leave it alone and just let it heal on its own. No signs of infection noted. Potential red flag symptoms discussed with the patient. Reviewed appropriate action plan to take if red flag symptoms occur. Patient agreeable to treatment plan. Shu Cunningham APRN.[facility] 01-28-2024 Hospital Discharge instructions Patient Education 01/28/2024 09:53:15 Treating Bipolar Disorder Treating Bipolar Disorder Bipolar disorder results in extreme mood swings that can greatly disrupt your life. These symptoms may cause you distress. But with treatment, you can lead a more normal life. Medicines Bipolar disorder is often treated with medicines that stabilize moods. They help you feel better by keeping your moods more even, and help prevent future mood swings. Sometimes you may also be prescribed medicines that treat depression. Take your medicine as prescribed. All medicines can have side effects. If you re troubled by side effects, tell your healthcare provider. But don t stop taking your medicine until your healthcare provider tells you. If you do, your symptoms will likely come back. Talk therapy (psychotherapy) Talking to a therapist or counselor may be part of your treatment. Having bipolar disorder can make it hard to hold a job or go to school. It can create stress for both you and your loved ones. A therapist can teach you how to cope with bipolar disorder. This can help you lessen manic or depressive episodes, or even prevent them. Your therapist can help you work out problems and heal relationships. He or she can also provide support when you need it most. Friends and family Those closest to you may also need support. There are many groups for families of people with bipolar disorder. Learning more about this disorder can help your loved ones cope. It can also help them take an active role in your care. Looking ahead People with bipolar disorder have periods with no symptoms. But it is a chronic illness that requires lifetime care. Just as with heart conditions or diabetes, bipolar symptoms can return or treatments many need to be changed. Ongoing professional support is velez to effective long-term management. Much research is being done on bipolar disorder. This research may lead to improved treatments and hope for a better future. Resources [place] of Mental Health 150-408-3135 www.nimh.nih.gov National [place] on Mental Illness 272-664-7985 www.zoey.org Mental Health [place]attie 787-267-6346 www.[facility].org National Suicide Prevention Lifeline 187-971-HUNG (655-648-5059) www.suicidepreventionlifeline.org 1355-[address] [employer] [place] [address]. All rights reserved. This information is not intended as a substitute for professional medical care. Always follow your healthcare professional's instructions. Follow Up Care 01/28/2024 09:28:05 With:[facility] Address: [id number] When:2-4 days With:FLORI HERNANDEZ DO Address: [address] [place] [phone] When:2-4 days [facility] 01-28-2024 Note Discharge Instructions Thank you for allowing [facility] to assist you with your healthcare needs. The following is important discharge information regarding your hospital visit. Diagnosis from Today's Visit Anxiety Anxiety What to Do Next Instructions from Your Care Team No qualifying data available. Post Acute Orders No qualifying data available. You Need to Schedule the Following Appointments Follow Up with [facility] When Within 2-4 days Where: [phone] Follow Up with FLORI HERNANDEZ DO When Within 2-4 days Where: [address] [place], [place] [address], [place] [phone] Allergies predniSONE (Sweats) Ceclor (Hives) Pediazole (Weakness, Flushing, Nausea) Suprax (Weakness, Flushing, Nausea) Tape Tylenol (Nausea) Vicodin (Nausea) amoxicillin erythromycin (Diarrhea) penicillin (Pruritus, Rash) traMADol (Hives) Medications Please ask your primary doctor or pharmacist before taking any other medication not listed, including over the counter drugs, herbal medications, vitamins and or supplements as they may interact with your home medications. What How Much When Why Instructions Last Dose New LORazepam (Ativan 1 mg oral tablet) 1 tab(s) by mouth Three (3) times a day as needed for as needed for anxiety Anxiety Duration: 3 Days Printed Prescription Changed hydrOXYzine (Atarax use hydrOXYzine hydrochloride ) 25 Milligram by mouth Three (3) times a day Duration: 7 Days Printed Prescription Changed hydrOXYzine (hydrOXYzine hydrochloride 50 mg oral tablet) 1 tab(s) by mouth Three (3) times a day Duration: 30 Days take 1 tablet by mouth three times a day if needed for anxiety Unchanged albuterol (ProAir HFA MDI (90 mcg/ inh) inhalation aerosol) 1 puff(s) by inhalation Every 6 hours URTI - Viral upper respiratory tract infection Unchanged ARIPiprazole (ARIPiprazole 5 mg oral tablet) 1 tab(s) by mouth Every day Unchanged baclofen (baclofen 10 mg oral tablet) 0.5 tab(s) by mouth Three (3) times a day as needed for Spasm Unchanged clonazePAM (clonazepam 2 mg oral tablet) 1 tab(s) by mouth Two (2) times a day as needed for Anxiety Anxiety Duration: 30 Days Unchanged lamoTRIgine (lamoTRIgine 200 mg oral tablet) 1 tab(s) by mouth Two (2) times a day Duration: 100 Days Unchanged metoprolol (Kapspargo Sprinkle 25 mg oral capsule, extended release) 1 cap by mouth Once a day Duration: 100 Days Unchanged Misc Medication (baclofen 5 mg tablet) TAKE 1 TABLET BY MOUTH TWICE DAILY Please take this list to your next doctor s visit. Bring all medications you take, including over the counter medications, herbals and other supplements with you to your doctor s visit. Patients and families are reminded to discard old lists and to update any records with all medication providers or retail pharmacies. Medication Leaflets hydroxyzine (raisa DROX ee zeen) Alysharil What is the most important information I should know about hydroxyzine? You should not use hydroxyzine if you are , especially during the first or second trimester. Hydroxyzine can cause a serious heart problem, especially if you use certain medicines at the same time. Tell your doctor about all your current medicines and any you start or stop using. What is hydroxyzine? Hydroxyzine reduces activity in the central nervous system. It also acts as an antihistamine that reduces the effects of natural chemical histamine in the body. Histamine can produce symptoms of itching, or hives on the skin. Hydroxyzine is used as a sedative to treat anxiety and tension. It is also used together with other medications given during and after general anesthesia. Hydroxyzine is also used to treat allergic skin reactions such as hives or contact dermatitis. Hydroxyzine may also be used for purposes not listed in this medication guide. What should I discuss with my healthcare provider before taking hydroxyzine? You should not use hydroxyzine if you are allergic to it, or if: you have long QT syndrome; you are allergic to cetirizine (Zyrtec) or levocetirizine (Xyzal); or you are in the first trimester of . You should not use hydroxyzine if you are , especially during the first or second trimester. Hydroxyzine could harm the unborn baby or cause defects. Use effective control to prevent while you are using this medicine. To make sure hydroxyzine is safe for you, tell your doctor if you have: blockage in your digestive tract (stomach or intestines); bladder obstruction or other urination problems; glaucoma; heart disease, slow heartbeats; personal or family history of long QT syndrome; an electrolyte imbalance (such as high or low levels of potassium in your blood); if you have recently had a heart attack. It is not known whether hydroxyzine passes into breast milk or if it could harm a nursing baby. You should not breast-feed while using this medicine. Do not give this medicine to a child without medical advice. How should I take hydroxyzine? Follow all directions on your prescription label. Your doctor may occasionally change your dose. Do not use this medicine in larger or smaller amounts or for longer than recommended. Shake the oral suspension (liquid) well just before you measure a dose. Measure liquid medicine with the dosing syringe provided, or with a special dose-measuring spoon or medicine cup. If you do not have a dose-measuring device, ask your pharmacist for one. Hydroxyzine is for short-term use only. You should not take this medicine for longer than 4 months. Call your doctor if your anxiety symptoms do not improve, or if they get worse. Store at room temperature away from moisture [...] the Poison Help line at . Overdose symptoms may include severe drowsiness, nausea, vomiting, uncontrolled muscle movements, or seizure (convulsions). What should I avoid while taking hydroxyzine? This medicine may impair your thinking or reactions. Be careful if you drive or do anything that requires you to be alert. Drinking alcohol with this medicine can cause side effects. What are the possible side effects of hydroxyzine? Get emergency medical help if you have signs of an allergic reaction: hives; difficult breathing; swelling of your face, lips, tongue, or throat. In rare cases, hydroxyzine may cause a severe skin reaction. Stop taking this medicine and call your doctor right away if you have sudden skin redness or a rash that spreads and causes white or yellow pustules, blistering, or peeling. Stop using hydroxyzine and call your doctor at once if you have: fast or pounding heartbeats; headache with chest pain; severe dizziness, fainting; or a seizure (convulsions). Side effects such as drowsiness and confusion may be more likely in older adults. Common side effects may include: drowsiness; headache; dry mouth; or skin rash. This is not a complete list of side effects and others may occur. Call your doctor for medical advice about side effects. You may report side effects to FDA at 1-084-DBN-1748. What other drugs will affect hydroxyzine? Taking this medicine with other drugs that make you sleepy can worsen this effect. Ask your doctor before taking hydroxyzine with a sleeping pill, narcotic pain medicine, muscle relaxer, or medicine for anxiety, depression, or seizures. Hydroxyzine can cause a serious heart problem, especially if you use certain medicines at the same time, including antibiotics, antidepressants, heart rhythm medicine, antipsychotic medicines, and medicines to treat cancer, malaria, HIV or AIDS. Tell your doctor about all medicines you use, and those you start or stop using during your treatment with hydroxyzine. Other drugs may interact with hydroxyzine, including prescription and qxix-fmk-uputoil medicines, vitamins, and herbal products. Not all possible interactions are listed here. Tell each of your health care providers about all medicines you use now and any medicine you start or stop using. Where can I get more information? Your pharmacist can provide more information about hydroxyzine. Remember, keep this and all other medicines out of the reach of children, never share your medicines with others, and use this medication only for the indication prescribed. Every effort has been made to ensure that the information provided by [employer]. [employer]') is accurate, up-to-date, and complete, but no guarantee is made to that effect. Drug information contained herein may be time sensitive. [employer] information has been compiled for use by healthcare practitioners and consumers in the [place] and therefore [employer] does not warrant that uses outside of the [place] are appropriate, unless specifically indicated otherwise. [employer] drug information does not endorse drugs, diagnose patients or recommend therapy. [employer] drug information is an informational resource designed [...] effective or appropriate for any given patient. [employer] does not assume any responsibility for any aspect of healthcare administered with the aid of information [employer] provides. The information contained herein is not intended to cover all possible uses, directions, precautions, warnings, drug interactions, allergic reactions, or adverse effects. If you have questions about the drugs you are taking, check with your doctor, nurse or pharmacist. Copyright 7783-1518 [employer]. Version: 8.01. Revision Date: 12/21/2016. lorazepam (oral) (adnita A ze ella) Ativan, Lorazepam Intensol, Loreev XR What is the most important information I should know about lorazepam? Lorazepam can slow or stop your breathing, especially if you have recently used an opioid medication or alcohol. MISUSE OF THIS MEDICINE CAN CAUSE ADDICTION, OVERDOSE, OR . Keep this medicine where others cannot get to it. You may have withdrawal symptoms if you stop using lorazepam suddenly. Ask your doctor before stopping the medicine. What is lorazepam? Lorazepam is used in adults and children at least 12 years old to treat anxiety disorders. Extended-release lorazepam is used in adults to treat anxiety disorders. Lorazepam may also be used for purposes not listed in this medication guide. What should I discuss with my healthcare provider before taking lorazepam? You should not use lorazepam if you have: narrow-angle glaucoma; or a history of allergic reaction to any benzodiazepine (lorazepam, alprazolam, diazepam, Valium, Xanax, Versed, Klonopin, and others). Tell your doctor if you have ever had: asthma, chronic obstructive pulmonary disease (COPD), sleep apnea, or other breathing disorder; drug or alcohol addiction; depression, mental illness or psychosis, mood changes, or suicidal thoughts or actions; seizures; an allergy to aspirin or yellow food dye; or kidney or liver disease. Tell your doctor if you are or plan to become . If you use lorazepam during , your baby could be born with life-threatening withdrawal symptoms, and may need medical treatment for several weeks. If you are , your name may be listed on a registry to track the effects of lorazepam on the baby. You should not breastfeed. If you do breastfeed, tell your doctor if you notice drowsiness, feeding problems, or slow weight gain in the nursing baby. How should I take lorazepam? Follow the directions on your prescription label and read all medication guides or instruction sheets. Never use lorazepam in larger amounts, or for longer than prescribed. Tell your doctor if you feel an increased urge to use more of this medicine. Never share this medicine with another person, especially someone with a history of drug addiction. MISUSE CAN CAUSE ADDICTION, OVERDOSE, OR . Keep the medicine where others cannot get to it. Selling or giving away this medicine is against the law. Measure the oral concentrate (liquid) with the supplied measuring device (not a kitchen spoon). Mix the liquid with water, juices, soda or soda-like beverages, or with semi-solid foods such as applesauce or puddings. Swallow this mixture right away. Swallow the extended-release capsule whole and do not crush, chew, break, or open it. If you cannot swallow a capsule whole, open it and mix the medicine with applesauce. Swallow the mixture right away without chewing. Do not stop using lorazepam without asking your doctor. You may have life-threatening withdrawal symptoms if you stop using the medicine suddenly after long-term use. Store tightly closed at room temperature, away from moisture and heat. Store the liquid form of lorazepam in the refrigerator. Throw away any liquid not used within 90 days. Keep your medicine in a place where no one can use it improperly. What happens if I miss a dose? Take the medicine as soon as you can, but skip the missed dose if it is almost time for your next dose. Do not take two doses at one time. What happens if I overdose? Seek emergency medical attention or call the Poison Help line at . An overdose of lorazepam can be fatal if you also drink alcohol or use other drugs that cause drowsiness or slow breathing. Overdose symptoms may include severe drowsiness, confusion, slurred speech, feeling restless, muscle weakness, loss of balance or coordination, feeling light-headed, slow heartbeats, weak or shallow breathing, or coma. What should I avoid while taking lorazepam? Do not drink alcohol. Dangerous side effects or could occur. Avoid driving or hazardous activity until you know how this medicine will affect you. Dizziness or drowsiness can cause falls, accidents, or severe injuries. What are the possible side effects of lorazepam? Get emergency medical help if you have signs of an allergic reaction: hives; difficulty breathing; swelling of your face, lips, tongue, or throat. Lorazepam can slow or stop your breathing, especially if you have recently used an opioid medication or alcohol. A person caring for you should seek emergency medical attention if you have slow breathing with long pauses, blue colored lips, or if you are hard to wake up. Call your doctor at once if you have: severe drowsiness; unusual changes in mood or behavior, being agitated or talkative; sudden restless feeling or excitement; seizures, depression, thinking problems, thoughts of suicide or hurting yourself; confusion, aggression, hallucinations; sleep problems (insomnia); vision changes; or dark urine, or jaundice (yellowing of the skin or eyes). Drowsiness or dizziness may last longer in older adults. Use caution to avoid falling or accidental injury. Common side effects may include: dizziness, sedation, drowsiness; weakness; or feeling unsteady. You will need frequent blood tests to check your blood counts and liver function. After you stop using lorazepam, seek medical help right away if you have symptoms such as: unusual muscle movements, being more active or talkative, sudden and severe changes in mood or behavior, confusion, hallucinations, seizures, suicidal thoughts or actions. Some withdrawal symptoms may last up to 12 months or longer after stopping this medicine suddenly. Tell your doctor if you have ongoing anxiety, depression, problems with memory or thinking, trouble sleeping, ringing in your ears, a burning or prickly feeling, or a crawling sensation under your skin. This is not a complete list of side effects and others may occur. Call your doctor for medical advice about side effects. You may report side effects to FDA at 4-000-WOP-0137. What other drugs will affect lorazepam? Taking lorazepam with other drugs that slow your breathing can cause dangerous side effects or . Ask your doctor before using opioid medication, a sleeping pill, a muscle relaxer, or medicine for anxiety or seizures. Tell your doctor about all your other medicines, especially: valproate, probenecid, aminophylline, or theophylline; medicine to treat mental illness; or medicine that contains an antihistamine (such as sleep medicine, cold or allergy medicine). This list is not complete and many other drugs may affect lorazepam. This includes prescription and htti-snp-uvjenol medicines, vitamins, and herbal products. Not all possible drug interactions are listed here. Where can I get more information? Your doctor or pharmacist can provide more information about lorazepam. Remember, keep this and all other medicines out of the reach of children, never share your medicines with others, and use this medication only for the indication prescribed. Every effort has been made to ensure that the information provided by [employer]') is accurate, up-to-date, and complete, but no guarantee is made to that effect. Drug information contained herein may be time sensitive. [employer] information has been compiled for use by healthcare practitioners and consumers in the [place] and therefore [employer] does not warrant that uses outside of the [place] are appropriate, unless specifically indicated otherwise. THE [employer] drug information does not endorse drugs, diagnose patients or recommend therapy. [employer] drug information is an informational resource designed [...] effective or appropriate for any given patient. [employer] does not assume any responsibility for any aspect of healthcare administered with the aid of information [employer] provides. The information contained herein is not intended to cover all possible uses, directions, precautions, warnings, drug interactions, allergic reactions, or adverse effects. If you have questions about the drugs you are taking, check with your doctor, nurse or pharmacist. Copyright 7976-7746 [facility] [employer]. Version: 10.04. Revision Date: 02/27/2023. Education Materials Treating Bipolar Disorder Bipolar disorder results in extreme mood swings that can greatly disrupt your life. These symptoms may cause you distress. But with treatment, you can lead a more normal life. Medicines Bipolar disorder is often treated with medicines that stabilize moods. They help you feel better by keeping your moods more even, and help prevent future mood swings. Sometimes you may also be prescribed medicines that treat depression. Take your medicine as prescribed. All medicines can have side effects. If you re troubled by side effects, tell your healthcare provider. But don t stop taking your medicine until your healthcare provider tells you. If you do, your symptoms will likely come back. Talk therapy (psychotherapy) Talking to a therapist or counselor may be part of your treatment. Having bipolar disorder can make it hard to hold a job or go to school. It can create stress for both you and your loved ones. A therapist can teach you how to cope with bipolar disorder. This can help you lessen manic or depressive episodes, or even prevent them. Your therapist can help you work out problems and heal relationships. He or she can also provide support when you need it most. Friends and family Those closest to you may also need support. There are many groups for families of people with bipolar disorder. Learning more about this disorder can help your loved ones cope. It can also help them take an active role in your care. Looking ahead People with bipolar disorder have periods with no symptoms. But it is a chronic illness that requires lifetime care. Just as with heart conditions or diabetes, bipolar symptoms can return or treatments many need to be changed. Ongoing professional support is velez to effective long-term management. Much research is being done on bipolar disorder. This research may lead to improved treatments and hope for a better future. Resources National [place] of Mental Health 348-595-0847 www.nimh.nih.gov National [place] on Mental Illness 395-207-0042 www.zoey.org Mental Health [place]attie 525-497-7065 www.[facility].org National Suicide Prevention Lifeline 086-754-UAHV (274-373-1036) www.suicidepreventionlifeline.org 3827-[address] [employer] [place] [address]. All rights reserved. This information is not intended as a substitute for professional medical care. Always follow your healthcare professional's instructions. Additional Information VACCINATE! IT SAVES LIVES! Members of the community who have not yet received the COVID-19 vaccine and would like to receive it can visit one of [facility] vaccine clinics. There are many vaccine clinic locations within the [facility]. For locations and available times, please visit [email or web address].[email or web address] [email or web address] It is important to note that some COVID mobile vaccine clinics are held outdoors and may be canceled in rainy or stormy conditions. To learn more about pediatric vaccinations (ages 5-11), we invite you to visit the [facility] webpage. https://www.[facility].org/pag es/4037-Ghhop-Jkvsofikxdv-Frequent vh-Wyuev-Fhixnmlri.html To learn more about the COVID-19 vaccine, we invite you to visit the CDC website for a list of frequently asked questions. https://www.cdc.gov/coronavirus/-ncov/vaccines/faq.html [facility] Patient Portal Access Instructions: Stay connected with your healthcare team and access your personal medical information anytime with the [facility] Patient Portal. If you would like a full copy of your medical records please contact the [facility] Medical Records Department Monday through Monday between 8a.m. and 4:30p.m. Please follow the directions below to access the portal: 1.Access the email account you provided upon registration to the [facility].2.Look for an invitation email from [facility].3.Open the email and access the invitation link: Accept Invitation to [facility]4.Fill in the required somers to create your account. Sign into [email or web address] with your username and password that you [...] you will allow to register on the [facility] Patient Portal for access to your information. You can also access the [facility] Patient Portal on the Melon. Simply click on Health Records under Health Data and then click on the [employer] logo. HOW TO SAFELY DISPOSE OF PRESCRIPTION [...] Call your local pharmacy or go to [email or web address] to find one close to you.3.Make use of household items: Use cat litter or old coffee grounds to dispose medications if other options are not available. Mix your drugs with these household products, seal them in an airtight container and throw it into the garbage. Call [facility]: [phone] to be sure your drugs can be [...] a CHART COPY Signatures Patient Education Materials Treating Bipolar Disorder Medication Leaflets hydroxyzine, lorazepam (oral) My discharge plan and instructions have been reviewed and explained to me and I,CAROLINA MONTEIRO understand my current condition and have read and understand these discharge instructions. I have received a written copy of the plan/instructions. If I have questions, I am aware that I should contact my doctor. Patient/Finger Cobbler Signature: Date/Time: Relationship to Patient: ___ Witness Name/Signature: Date/Time: [facility] 01-27-2024 Hospital Discharge instructions Patient Education 01/27/2024 21:05:27 Depression Depression Depression is one of the most common mental health problems today. It is not just a state of unhappiness or sadness. It is a true disease. The cause seems to be related to a decrease in chemicals that transmit signals in the brain. Having a family history of depression, alcoholism, or suicide increases the risk. Chronic illness, chronic pain, migraine headaches, and high emotional stress also increase the risk. Depression is something we tend to recognize in others, but may have a hard time seeing in ourselves. It can show in many physical and emotional ways: Loss of appetite Overeating Not being able to sleep Sleeping too much Tiredness not related to physical exertion Restlessness or irritability Slowness of movement or speech Feeling depressed or withdrawn Loss of interest in things you once enjoyed Trouble concentrating, poor memory, trouble making decisions Thoughts of harming or killing oneself, or thoughts that life is not worth living Low self-esteem The treatment for depression may include both medicine and psychotherapy. Antidepressants can reduce suffering and can improve the ability to function during the depressed period. Therapy can offer emotional support and help you understand emotional factors that may be causing the depression. Home care Ongoing care and support help people manage this disease. Find a healthcare provider and therapist who meet your needs. Seek help when you feel like you may be getting ill. Be kind to yourself. Make it a point to do things that you enjoy (gardening, walking in nature, going to a movie). Reward yourself for small successes. Take care of your physical body. Eat a balanced diet (low in saturated fat and high in fruits and vegetables). Exercise at least 3 times a week for 30 minutes. Even mild-moderate exercise (like brisk walking) can make you feel better. Don't drink alcohol, which can make depression worse. Take medicine as prescribed. Tell each of your healthcare providers about all of the prescription and hhvo-jxf-epsedfx medicines, vitamins, and supplements you take. Certain supplements interact with medicines and can result in dangerous side effects. Ask your pharmacist when you have questions about medicine interactions. Talk with your family and trusted friends about your feelings and thoughts. Ask them to help you recognize behavior changes early so you can get help and, if needed, medicine can be adjusted. Follow-up care Follow up with your healthcare provider, or as advised. Call 911 Call 911 if you: Have suicidal thoughts, a suicide plan, and the means to carry out the plan; or serious thoughts of hurting someone else Have trouble breathing Are very confused Feel very drowsy or have trouble awakening Faint or lose consciousness Have new chest pain that becomes more severe, lasts longer, or spreads into your shoulder, arm, neck, jaw, or back When to seek medical advice Call your healthcare provider right away if any of these happen: Feeling extreme depression, fear, anxiety, or anger toward yourself or others Feeling out of control Feeling that you may try to harm yourself or another Hearing voices that others do not hear Seeing things that others do not see Can t sleep or eat for 3 days in a row Friends or family express concern over your behavior and ask you to seek help [phone] [employer]. [address] [place] [address], [place] [address]. All rights reserved. This information is not intended as a substitute for professional medical care. Always follow your healthcare professional's instructions. Follow Up Care 01/27/2024 16:40:36 With:[facility] Address: When:2-4 days [facility] 01-27-2024 Note Discharge Instructions Thank you for allowing [facility] to assist you with your healthcare needs. The following is important discharge information regarding your hospital visit. Diagnosis from Today's Visit Depression What to Do Next Instructions from Your Care Team No qualifying data available. Post Acute Orders No qualifying data available. You Need to Schedule the Following Appointments Follow Up with [facility] When Within 2-4 days Where: Allergies predniSONE (Sweats) Ceclor (Hives) Pediazole (Weakness, Flushing, Nausea) Suprax (Weakness, Flushing, Nausea) Tape Tylenol (Nausea) Vicodin (Nausea) amoxicillin erythromycin (Diarrhea) penicillin (Pruritus, Rash) traMADol (Hives) Medications Please ask your primary doctor or pharmacist before taking any other medication not listed, including over the counter drugs, herbal medications, vitamins and or supplements as they may interact with your home medications. Please take this list to your next doctor s visit. Bring all medications you take, including over the counter medications, herbals and other supplements with you to your doctor s visit. Patients and families are reminded to discard old lists and to update any records with all medication providers or retail pharmacies. Education Materials Depression Depression is one of the most common mental health problems today. It is not just a state of unhappiness or sadness. It is a true disease. The cause seems to be related to a decrease in chemicals that transmit signals in the brain. Having a family history of depression, alcoholism, or suicide increases the risk. Chronic illness, chronic pain, migraine headaches, and high emotional stress also increase the risk. Depression is something we tend to recognize in others, but may have a hard time seeing in ourselves. It can show in many physical and emotional ways: Loss of appetite Overeating Not being able to sleep Sleeping too much Tiredness not related to physical exertion Restlessness or irritability Slowness of movement or speech Feeling depressed or withdrawn Loss of interest in things you once enjoyed Trouble concentrating, poor memory, trouble making decisions Thoughts of harming or killing oneself, or thoughts that life is not worth living Low self-esteem The treatment for depression may include both medicine and psychotherapy. Antidepressants can reduce suffering and can improve the ability to function during the depressed period. Therapy can offer emotional support and help you understand emotional factors that may be causing the depression. Home care Ongoing care and support help people manage this disease. Find a healthcare provider and therapist who meet your needs. Seek help when you feel like you may be getting ill. Be kind to yourself. Make it a point to do things that you enjoy (gardening, walking in nature, going to a movie). Reward yourself for small successes. Take care of your physical body. Eat a balanced diet (low in saturated fat and high in fruits and vegetables). Exercise at least 3 times a week for 30 minutes. Even mild-moderate exercise (like brisk walking) can make you feel better. Don't drink alcohol, which can make depression worse. Take medicine as prescribed. Tell each of your healthcare providers about all of the prescription and awnl-jah-xmxndcm medicines, vitamins, and supplements you take. Certain supplements interact with medicines and can result in dangerous side effects. Ask your pharmacist when you have questions about medicine interactions. Talk with your family and trusted friends about your feelings and thoughts. Ask them to help you recognize behavior changes early so you can get help and, if needed, medicine can be adjusted. Follow-up care Follow up with your healthcare provider, or as advised. Call 911 Call 911 if you: Have suicidal thoughts, a suicide plan, and the means to carry out the plan; or serious thoughts of hurting someone else Have trouble breathing Are very confused Feel very drowsy or have trouble awakening Faint or lose consciousness Have new chest pain that becomes more severe, lasts longer, or spreads into your shoulder, arm, neck, jaw, or back When to seek medical advice Call your healthcare provider right away if any of these happen: Feeling extreme depression, fear, anxiety, or anger toward yourself or others Feeling out of control Feeling that you may try to harm yourself or another Hearing voices that others do not hear Seeing things that others do not see Can t sleep or eat for 3 days in a row Friends or family express concern over your behavior and ask you to seek help [phone] [employer]. [address] [place] [address]. All rights reserved. This information is not intended as a substitute for professional medical care. Always follow your healthcare professional's instructions. Additional Information VACCINATE! IT SAVES LIVES! Members of the community who have not yet received the COVID-19 vaccine and would like to receive it can visit one of [facility] vaccine clinics. There are many vaccine clinic locations within the [facility]. For locations and available times, please visit [email or web address] It is important to note that some COVID mobile vaccine clinics are held outdoors and may be canceled in rainy or stormy conditions. To learn more about pediatric vaccinations (ages 5-11), we invite you to visit the [facility] webpage. https://www.[facility].org/pag es/8196-Xqpmt-Ootyvadczbq-Frequent ee-Hzxuk-Xckzeorcf.html To learn more about the COVID-19 vaccine, we invite you to visit the CDC website for a list of frequently asked questions. https://www.cdc.gov/coronavirus/ 19-ncov/vaccines/faq.html [facility] Patient Portal Access Instructions: Stay connected with your healthcare team and access your personal medical information anytime with the [facility] Patient Portal. If you would like a full copy of your medical records please contact the [facility] Medical Records Department Monday through Monday between 8a.m. and 4:30p.m. Please follow the directions below to access the portal: 1.Access the email account you provided upon registration to the hospital.2.Look for an invitation email from [facility].3.Open the email and access the invitation link: Accept Invitation to [facility].Fill in the required somers to create your account. Sign into [email or web address] with your username and password that you [...] you will allow to register on the [facility] Patient Portal for access to your information. You can also access the [facility] Patient Portal on the Melon. Simply click on Health Records under Health Data and then click on the [employer] logo. HOW TO SAFELY DISPOSE OF PRESCRIPTION [...] Call your local pharmacy or go to [email or web address] to find one close to you.3.Make use of household items: Use cat litter or old coffee grounds to dispose medications if other options are not available. Mix your drugs with these household products, seal them in an airtight container and throw it into the garbage. Call [facility]: [phone] to be sure your drugs can be [...] a CHART COPY Signatures Patient Education Materials Depression Medication Leaflets My discharge plan and instructions have been reviewed and explained to me and I,CAROLINA MONTEIRO understand my current condition and have read and understand these discharge instructions. I have received a written copy of the plan/instructions. If I have questions, I am aware that I should contact my doctor. Patient/Finger Cobbler Signature: Date/Time: Relationship to Patient: ___ Witness Name/Signature: Date/Time: [facility] 01-27-2024 Note Sinus rhythm Probable left atrial enlargement RSR' in V1 or V2, right VCD or RVH Electronic Signature: AKSHAT POTTS DO 01/27/2024 18:14:27 [facility] 12-19-2023 Hospital Discharge instructions Patient Education 12/19/2023 16:10:02 Anxiety Reaction Anxiety Reaction Anxiety is the feeling we all get when we think something bad might happen. It is a normal response to stress and usually causes only a mild reaction. When anxiety becomes more severe, it can interfere with daily life. In some cases, you may not even be aware of what it is you re anxious about. There may also be a genetic link or it may be a learned behavior in the home. Both psychological and physical triggers cause stress reaction. It's often a response to fear or emotional stress, real or imagined. This stress may come from home, family, work, or social relationships. During an anxiety reaction, you may feel: Helpless Nervous Depressed Irritable Your body may show signs of anxiety in many ways. You may experience: Dry mouth Shakiness Dizziness Weakness Trouble breathing Breathing fast (hyperventilating) Chest pressure Sweating Headache Nausea Diarrhea Tiredness Inability to sleep Sexual problems Home care Try to locate the sources of stress in your life. They may not be obvious. These may include: oDaily hassles of life (such as traffic jams, missed appointments, or car troubles) oMajor life changes, both good (new baby or job promotion) and bad (loss of job or loss of loved one) oOverload: feeling that you have too many responsibilities and can't take care of all of them at once oFeeling helpless or feeling that your problems are beyond what you re able to solve Notice how your body reacts to stress. Learn to listen to your body signals. This will help you take action before the stress becomes severe. When you can, do something about the source of your stress. (Avoid hassles, limit the amount of change that happens in your life at one time and take a break when you feel overloaded). Unfortunately, many stressful situations can't be avoided. It is necessary to learn how to better manage stress. There are many proven methods that will reduce your anxiety. These include simple things like exercise, good nutrition, and adequate rest. Also, there are certain techniques that are helpful: oRelaxation oBreathing exercises oVisualization oBiofeedback oMeditation For more information about this, consult your healthcare provider or go to a local bookstore and review the many books and tapes available on this subject. Follow-up care If you feel that your anxiety is not responding to self-help measures, contact your healthcare provider or make an appointment with a counselor. You may need short-term psychological counseling and temporary medicine to help you manage stress. Call 911 Call 911 if any of these happen: Trouble breathing Confusion Drowsiness or trouble wakening Fainting or loss of consciousness Rapid heart rate Seizure New chest pain that becomes more severe, lasts longer, or spreads into your shoulder, arm, neck, jaw, or back When to seek medical advice Call your healthcare provider right away if any of these happen: Your symptoms get worse Severe headache not relieved by rest and mild pain reliever [phone] [employer] [place] [address]. All rights reserved. This information is not intended as a substitute for professional medical care. Always follow your healthcare professional's instructions. Follow Up Care 12/19/2023 15:28:17 With:FLORI HERNANDEZ DO Address: [address] [place] [address] [phone] When:2-4 days [facility] 12-19-2023 Emergency department Discharge summary Discharge Instructions Thank you for allowing [facility] to assist you with your healthcare needs. The following is important discharge information regarding your hospital visit. Diagnosis from Today's Visit Anxiety Anxiety, Anxiety What to Do Next Instructions from Your Care Team Start taking 2 and half milligrams of Abilify every day. The prescription you received yesterday for Ativan take that as directed until it is complete. Receiving a prescription for Valium which you are not able to fill until after the Ativan is completed. He will be written off work today and tomorrow. Please keep your appointment with your psychiatrist next week. Return if symptoms worsen. No qualifying data available. Post Acute Orders No qualifying data available. You Need to Schedule the Following Appointments Follow Up with FLORI HERNANDEZ DO When Within 2-4 days Where: [address] [place] [phone] Allergies predniSONE (Sweats) Ceclor (Hives) Pediazole (Weakness, [...] Much When Why Instructions Last Dose New diazePAM (Valium 5 mg oral tablet) 1 tab(s) by mouth Three (3) times a day Anxiety Duration: 3 Days Printed Prescription Unchanged albuterol (ProAir HFA MDI (90 mcg/ inh) inhalation aerosol) 1 puff(s) by inhalation Every 6 hours URTI - Viral upper respiratory tract infection Unchanged clonazePAM (clonazepam 2 mg oral tablet) 1 tab(s) by mouth Two (2) times a day as needed for Anxiety Anxiety Unchanged hydrOXYzine (hydrOXYzine hydrochloride 50 mg oral [...] Once a day Bipolar disorder Unchanged LORazepam (Ativan 1 mg oral tablet) 1 tab(s) by mouth Three (3) times a day Anxiety Duration: 3 Days Unchanged metoprolol (Kapspargo Sprinkle 25 mg [...] medication providers or retail pharmacies. Education Materials Anxiety Reaction Anxiety is the feeling we all get when we think something bad might happen. It is a normal response to stress and usually causes only a mild reaction. When anxiety becomes more severe, it can interfere with daily life. In some cases, you may not even be aware of what it is you re anxious about. There may also be a genetic link or it may be a learned behavior in the home. Both psychological and physical triggers cause stress reaction. It's often a response to fear or emotional stress, real or imagined. This stress may come from home, family, work, or social relationships. During an anxiety reaction, you may feel: Helpless Nervous Depressed Irritable Your body may show signs of anxiety in many ways. You may experience: Dry mouth Shakiness Dizziness Weakness Trouble breathing Breathing fast (hyperventilating) Chest pressure Sweating Headache Nausea Diarrhea Tiredness Inability to sleep Sexual problems Home care Try to locate the sources of stress in your life. They may not be obvious. These may include: oDaily hassles of life (such as traffic jams, missed appointments, or car troubles) oMajor life changes, both good (new baby or job promotion) and bad (loss of job or loss of loved one) oOverload: feeling that you have too many responsibilities and can't take care of all of them at once oFeeling helpless or feeling that your problems are beyond what you re able to solve Notice how your body reacts to stress. Learn to listen to your body signals. This will help you take action before the stress becomes severe. When you can, do something about the source of your stress. (Avoid hassles, limit the amount of change that happens in your life at one time and take a break when you feel overloaded). Unfortunately, many stressful situations can't be avoided. It is necessary to learn how to better manage stress. There are many proven methods that will reduce your anxiety. These include simple things like exercise, good nutrition, and adequate rest. Also, there are certain techniques that are helpful: oRelaxation oBreathing exercises oVisualization oBiofeedback oMeditation For more information about this, consult your healthcare provider or go to a local bookstore and review the many books and tapes available on this subject. Follow-up care If you feel that your anxiety is not responding to self-help measures, contact your healthcare provider or make an appointment with a counselor. You may need short-term psychological counseling and temporary medicine to help you manage stress. Call 911 Call 911 if any of these happen: Trouble breathing Confusion Drowsiness or trouble wakening Fainting or loss of consciousness Rapid heart rate Seizure New chest pain that becomes more severe, lasts longer, or spreads into your shoulder, arm, neck, jaw, or back When to seek medical advice Call your healthcare provider right away if any of these happen: Your symptoms get worse Severe headache not relieved by rest and mild pain reliever [phone] [employer]. [address] [place] [address], [place] [address]. All rights reserved. This information is not intended as a substitute for professional medical care. Always follow your healthcare professional's instructions. Additional Information VACCINATE! IT SAVES LIVES! Members of the community who have not yet received the COVID-19 vaccine and would like to receive it can visit one of [facility] vaccine clinics. There are many vaccine clinic locations within the [facility]. For locations and available times, please visit [email or web address] It is important to note that some COVID mobile vaccine clinics are held outdoors and may be canceled in rainy or stormy conditions. To learn more about pediatric vaccinations (ages 5-11), we invite you to visit the [facility] webpage. https://www.[employer].org/pag es/3055-Apwpx-Gmyrtptsczm-Frequent xl-Znpol-Dmshaceqe.html To learn more about the COVID-19 vaccine, we invite you to visit the CDC website for a list of frequently asked questions. https://www.cdc.gov/coronavirus/20 19-ncov/vaccines/faq.html [facility] Patient Portal Access Instructions: Stay connected with your healthcare team and access your personal medical information anytime with the [facility] Patient Portal. If you would like a full copy of your medical records please contact the [facility] Medical Records Department Monday through Monday between 8a.m. and 4:30p.m. Please follow the directions below to access the portal: 1.Access the email account you provided upon registration to the hospital.2.Look for an invitation email from [facility].3.Open the email and access the invitation link: Accept Invitation to [facility].Fill in the required somers to create your account. Sign into [email or web address] with your username and password that you [...] you will allow to register on the [facility] Patient Portal for access to your information. You can also access the [facility] Patient Portal on the GoFormz bushra. Simply click on Health Records under Health Data and then click on the RuckPack logo. HOW TO SAFELY DISPOSE OF PRESCRIPTION [...] Call your local pharmacy or go to [email or web address] to find one close to you.3.Make use of household items: Use cat litter or old coffee grounds to dispose medications if other options are not available. Mix your drugs with these household products, seal them in an airtight container and throw it into the garbage. Call [facility]: [phone] to be sure your drugs can be [...] a CHART COPY Signatures Patient Education Materials Anxiety Reaction Medication Leaflets My discharge plan and instructions have been reviewed and explained to me and I,CAROLINA MONTEIRO understand my current condition and have read and understand these discharge instructions. I have received a written copy of the plan/instructions. If I have questions, I am aware that I should contact my doctor. Patient/Finger Cobbler Signature: Date/Time: Relationship to Patient: ___ Witness Name/Signature: Date/Time: [facility] 12-18-2023 Hospital Discharge instructions Patient Education 12/18/2023 13:05:16 Anxiety Reaction Anxiety Reaction Anxiety is the feeling we all get when we think something bad might happen. It is a normal response to stress and usually causes only a mild reaction. When anxiety becomes more severe, it can interfere with daily life. In some cases, you may not even be aware of what it is you re anxious about. There may also be a genetic link or it may be a learned behavior in the home. Both psychological and physical triggers cause stress reaction. It's often a response to fear or emotional stress, real or imagined. This stress may come from home, family, work, or social relationships. During an anxiety reaction, you may feel: Helpless Nervous Depressed Irritable Your body may show signs of anxiety in many ways. You may experience: Dry mouth Shakiness Dizziness Weakness Trouble breathing Breathing fast (hyperventilating) Chest pressure Sweating Headache Nausea Diarrhea Tiredness Inability to sleep Sexual problems Home care Try to locate the sources of stress in your life. They may not be obvious. These may include: oDaily hassles of life (such as traffic jams, missed appointments, or car troubles) oMajor life changes, both good (new baby or job promotion) and bad (loss of job or loss of loved one) oOverload: feeling that you have too many responsibilities and can't take care of all of them at once oFeeling helpless or feeling that your problems are beyond what you re able to solve Notice how your body reacts to stress. Learn to listen to your body signals. This will help you take action before the stress becomes severe. When you can, do something about the source of your stress. (Avoid hassles, limit the amount of change that happens in your life at one time and take a break when you feel overloaded). Unfortunately, many stressful situations can't be avoided. It is necessary to learn how to better manage stress. There are many proven methods that will reduce your anxiety. These include simple things like exercise, good nutrition, and adequate rest. Also, there are certain techniques that are helpful: oRelaxation oBreathing exercises oVisualization oBiofeedback oMeditation For more information about this, consult your healthcare provider or go to a local bookstore and review the many books and tapes available on this subject. Follow-up care If you feel that your anxiety is not responding to self-help measures, contact your healthcare provider or make an appointment with a counselor. You may need short-term psychological counseling and temporary medicine to help you manage stress. Call 911 Call 911 if any of these happen: Trouble breathing Confusion Drowsiness or trouble wakening Fainting or loss of consciousness Rapid heart rate Seizure New chest pain that becomes more severe, lasts longer, or spreads into your shoulder, arm, neck, jaw, or back When to seek medical advice Call your healthcare provider right away if any of these happen: Your symptoms get worse Severe headache not relieved by rest and mild pain reliever [phone] [employer]. [address] [place] [address], [place] [address]. All rights reserved. This information is not intended as a substitute for professional medical care. Always follow your healthcare professional's instructions. Follow Up Care 12/18/2023 11:28:49 With:FLORI HERNANDEZ DO Address: [address] [place] [phone] When:2-4 days [facility] 12-18-2023 Emergency department Discharge summary Discharge Instructions Thank you for allowing [facility] to assist you with your healthcare needs. The following is important discharge information regarding your hospital visit. Diagnosis from Today's Visit Anxiety Anxiety What to Do Next Instructions from Your Care Team Discharge Return to Work, School, or Sports (Return to Work, School, or Sports) - Ordered -- 12/19/23, May return to: work, 12/18/23 13:06:00 EDT Post Acute Orders No qualifying data available. You Need to Schedule the Following Appointments Follow Up with FLORI HERNANDEZ DO When Within 2-4 days Where: [address] [place] [address] [place] [phone] Allergies predniSONE (Sweats) Ceclor (Hives) Pediazole (Weakness, [...] Much When Why Instructions Last Dose New LORazepam (Ativan 1 mg oral tablet) 1 tab(s) by mouth Three (3) times a day Anxiety Duration: 3 Days Printed Prescription Unchanged albuterol (ProAir HFA MDI (90 mcg/ inh) inhalation aerosol) 1 puff(s) by inhalation Every 6 hours URTI - Viral upper respiratory tract infection Unchanged clonazePAM (clonazepam 2 mg oral tablet) 1 tab(s) by mouth Two (2) times a day as needed for Anxiety Anxiety Unchanged hydrOXYzine (hydrOXYzine hydrochloride 50 mg oral [...] medication providers or retail pharmacies. Education Materials Anxiety Reaction Anxiety is the feeling we all get when we think something bad might happen. It is a normal response to stress and usually causes only a mild reaction. When anxiety becomes more severe, it can interfere with daily life. In some cases, you may not even be aware of what it is you re anxious about. There may also be a genetic link or it may be a learned behavior in the home. Both psychological and physical triggers cause stress reaction. It's often a response to fear or emotional stress, real or imagined. This stress may come from home, family, work, or social relationships. During an anxiety reaction, you may feel: Helpless Nervous Depressed Irritable Your body may show signs of anxiety in many ways. You may experience: Dry mouth Shakiness Dizziness Weakness Trouble breathing Breathing fast (hyperventilating) Chest pressure Sweating Headache Nausea Diarrhea Tiredness Inability to sleep Sexual problems Home care Try to locate the sources of stress in your life. They may not be obvious. These may include: oDaily hassles of life (such as traffic jams, missed appointments, or car troubles) oMajor life changes, both good (new baby or job promotion) and bad (loss of job or loss of loved one) oOverload: feeling that you have too many responsibilities and can't take care of all of them at once oFeeling helpless or feeling that your problems are beyond what you re able to solve Notice how your body reacts to stress. Learn to listen to your body signals. This will help you take action before the stress becomes severe. When you can, do something about the source of your stress. (Avoid hassles, limit the amount of change that happens in your life at one time and take a break when you feel overloaded). Unfortunately, many stressful situations can't be avoided. It is necessary to learn how to better manage stress. There are many proven methods that will reduce your anxiety. These include simple things like exercise, good nutrition, and adequate rest. Also, there are certain techniques that are helpful: oRelaxation oBreathing exercises oVisualization oBiofeedback oMeditation For more information about this, consult your healthcare provider or go to a local bookstore and review the many books and tapes available on this subject. Follow-up care If you feel that your anxiety is not responding to self-help measures, contact your healthcare provider or make an appointment with a counselor. You may need short-term psychological counseling and temporary medicine to help you manage stress. Call 911 Call 911 if any of these happen: Trouble breathing Confusion Drowsiness or trouble wakening Fainting or loss of consciousness Rapid heart rate Seizure New chest pain that becomes more severe, lasts longer, or spreads into your shoulder, arm, neck, jaw, or back When to seek medical advice Call your healthcare provider right away if any of these happen: Your symptoms get worse Severe headache not relieved by rest and mild pain reliever [phone] [employer]. [address] [place] [address]. All rights reserved. This information is not intended as a substitute for professional medical care. Always follow your healthcare professional's instructions. Additional Information VACCINATE! IT SAVES LIVES! Members of the community who have not yet received the COVID-19 vaccine and would like to receive it can visit one of [facility] vaccine clinics. There are many vaccine clinic locations within the [facility]. For locations and available times, please visit [email or web address] [email or web address] It is important to note that some COVID mobile vaccine clinics are held outdoors and may be canceled in rainy or stormy conditions. To learn more about pediatric vaccinations (ages 5-11), we invite you to visit the [facility] webpage. https://www.[facility].org/pag es/0485-Miwzb-Zseixvlhvnn-Frequent vd-Zzwuu-Jfqahsvly.html To learn more about the COVID-19 vaccine, we invite you to visit the CDC website for a list of frequently asked questions. https://www.cdc.gov/coronavirus/ 19-ncov/vaccines/faq.html [facility] [facility] Patient Portal Access Instructions: Stay connected with your healthcare team and access your personal medical information anytime with the [facility] Patient Portal. If you would like a full copy of your medical records please contact the [facility] Medical Records Department Monday through Monday between 8a.m. and 4:30p.m. Please follow the directions below to access the portal: 1.Access the email account you provided upon registration to the [facility].2.Look for an invitation email from [facility].3.Open the email and access the invitation link: Accept Invitation to [facility].Fill in the required somers to create your [...] you will allow to register on the [facility] Patient Portal for access to your information. You can also access the [facility] Patient Portal on the GoFormz bushra. Simply click on Health Records under Health [...] Call your local pharmacy or go to [email or web address] to find one close to you.3.Make use of household items: Use cat litter or old coffee grounds to dispose medications if other options are not available. Mix your drugs with these household products, seal them in an airtight container and throw it into the garbage. Call [facility]: [phone] to be sure your drugs can be [...] a CHART COPY Signatures Patient Education Materials Anxiety Reaction Medication Leaflets My discharge plan and instructions have been reviewed and explained to me and ITHANIA JENNIFER L understand my current condition and have read and understand these discharge instructions. I have received a written copy of the plan/instructions. If I have questions, I am aware that I should contact my doctor. Patient/Finger Cobbler Signature: Date/Time: Relationship to Patient: ___ Witness Name/Signature: Date/Time: [facility] 09-20-2023 Hospital Discharge instructions Patient Education 09/20/2023 [...] or as directed by your healthcare provider [phone] [employer]. [address] [place] [address], [place] [address]. All rights reserved. This information is not intended as a substitute for professional medical care. Always follow your healthcare professional's instructions. Follow Up Care 09/20/2023 13:17:43 With:FLORI HERNANDEZ DO Address: [address] [place] [phone] When:2-4 days [facility] 09-20-2023 Emergency department Discharge summary Discharge Instructions Thank you for allowing [facility] to assist you with your healthcare needs. [...] the Following Appointments Follow Up with FLORI HERNANDEZ DO When Within 2-4 days Where: [address] [place] [phone] Allergies predniSONE (Sweats) Ceclor (Hives) Pediazole (Weakness, [...] or as directed by your healthcare provider [phone] [employer]. [address] [place] [address], [place] [address]. All rights reserved. This information is not intended as a substitute for professional medical care. Always follow your healthcare professional's instructions. Additional Information VACCINATE! IT SAVES LIVES! Members of the community who have not yet received the COVID-19 vaccine and would like to receive it can visit one of [facility] vaccine clinics. There are many vaccine clinic locations within the [facility]. For locations and available times, please visit [email or web address] [email or web address] It is important to note that some COVID mobile vaccine clinics are held outdoors and may be canceled in rainy or stormy conditions. To learn more about pediatric vaccinations (ages 5-11), we invite you to visit the [facility] webpage. https://www.[facility].org/pag es/7346-Wqzsr-Pouaakypscl-Frequent dz-Lyvhe-Wrpnnmbwt.html To learn more about the COVID-19 vaccine, we invite you to visit the CDC website for a list of frequently asked questions. https://www.cdc.gov/coronavirus/ 19-ncov/vaccines/faq.html [facility] Patient Portal Access Instructions: Stay connected with your healthcare team and access your personal medical information anytime with the [facility] Patient Portal. If you would like a full copy of your medical records please contact the [facility] Medical Records Department Monday through Monday between 8a.m. and 4:30p.m. Please follow the directions below to access the portal: 1.Access the email account you provided upon registration to the hospital.2.Look for an invitation email from [facility].3.Open the email and access the invitation link: Accept Invitation to [facility].Fill in the required somers to create your account. Sign into [email or web address] with your username and password that you [...] you will allow to register on the [facility] Patient Portal for access to your information. You can also access the [facility] Patient Portal on the Melon. Simply click on Health Records under Health [...] Call your local pharmacy or go to [email or web address] to find one close to you.3.Make use of household items: Use cat litter or old coffee grounds to dispose medications if other options are not available. Mix your drugs with these household products, seal them in an airtight container and throw it into the garbage. Call [facility]: [phone] to be sure your drugs can be [...] been reviewed and explained to me and I,CAROLINA MONTEIRO understand my current condition and have read and understand these discharge instructions. I have received a written copy of the plan/instructions. If I have questions, I am aware that I should contact my doctor. Patient/Finger Cobbler Signature: Date/Time: Relationship to Patient: ___ Witness Name/Signature: Date/Time: [facility] 09-20-2023 Note ORIGINAL EXAMINATION: CT OF [...] 09/20/2023 5:09:15 PM Ordering Provider: KEITH MATSON [facility] 07-23-2023 Note . MICRO - Microbiology [...] Locations *1: This test was performed at: [facility], [address] [place] [address], [phone] , [facility] 07-21-2023 Hospital Discharge instructions Patient Education 07/21/2023 [...] Black, tarry stool Involuntary weight loss Weakness [phone] [employer]. [address] [place] [address], [place] [address]. All rights reserved. This information is not [...] or water and you are getting dehydrated [phone] [employer]. [address] [place] [address]. All rights reserved. This information is not intended as a substitute for professional medical care. Always follow your healthcare professional's instructions. Follow Up Care 07/21/2023 15:29:05 With:FLORI HERNANDEZ DO Address: [address] [place] [phone] When:2-4 days [facility] 07-21-2023 Note Discharge Instructions Thank you for allowing [facility] to assist you with your healthcare needs. [...] the Following Appointments Follow Up with FLORI HERNANDEZ DO When Within 2-4 days Where: [address] [place] [phone] Allergies predniSONE (Sweats) Ceclor (Hives) Pediazole (Weakness, [...] GLYE kol) ClearLax, GaviLAX, HealthyLax, MiraLax, Natura-Lax, QSC0950, [employer] ClearLax What is the most important [...] may report side effects to FDA at 2-622-WLE-7769. What other drugs will affect polyethylene glycol 3350? Other drugs may interact with polyethylene glycol 3350, including prescription and sxxd-bct-xjfuiac medicines, vitamins, and herbal products. Tell each [...] to ensure that the information provided by [facility]. ('[employer]') is accurate, up-to-date, and complete, but no guarantee is made to that effect. Drug information contained herein may be time sensitive. [employer] information has been compiled for use by healthcare practitioners and consumers in the [place] and therefore [employer] does not warrant that uses outside of the [place] are appropriate, unless specifically indicated otherwise. [employer]'s drug information does not endorse drugs, diagnose patients or recommend therapy. [employer] drug information is an informational resource designed [...] effective or appropriate for any given patient. [employer] does not assume any responsibility for any aspect of healthcare administered with the aid of information [employer] provides. The information contained herein is not intended to cover all possible uses, directions, precautions, warnings, drug interactions, allergic reactions, or adverse effects. If you have questions about the drugs you are taking, check with your doctor, nurse or pharmacist. Copyright 2182-3492 [facility]. Version: 4.01. Revision Date: 05/10/2023. dicyclomine (oral/injection) [...] may report side effects to FDA at 6-513-VFQ-8888. What other drugs will affect dicyclomine? Using [...] may affect dicyclomine. This includes prescription and sqoi-oya-fkmxzes medicines, vitamins, and herbal products. Not all [...] to ensure that the information provided by [facility]. ('[employer]') is accurate, up-to-date, and complete, but no guarantee is made to that effect. Drug information contained herein may be time sensitive. [employer] information has been compiled for use by healthcare practitioners and consumers in the [place] and therefore [employer] does not warrant that uses outside of the [place] are appropriate, unless specifically indicated otherwise. [employer] drug information does not endorse drugs, diagnose patients or recommend therapy. [employer] drug information is an informational resource designed [...] effective or appropriate for any given patient. [employer] does not assume any responsibility for any aspect of healthcare administered with the aid of information [employer] provides. The information contained herein is not intended to cover all possible uses, directions, precautions, warnings, drug interactions, allergic reactions, or adverse effects. If you have questions about the drugs you are taking, check with your doctor, nurse or pharmacist. Copyright 3022-3744 [facility]. Version: 8.01. Revision Date: 05/12/2023. Education Materials [...] Black, tarry stool Involuntary weight loss Weakness 7622-4591 [employer]. [address] [place] [address], [place] [address]. All rights reserved. This information is not [...] or water and you are getting dehydrated 6715-5481 [employer]. [address] [place] [address]. All rights reserved. This information is not intended as a substitute for professional medical care. Always follow your healthcare professional's instructions. Additional Information VACCINATE! IT SAVES LIVES! Members of the community who have not yet received the COVID-19 vaccine and would like to receive it can visit one of [facility] vaccine clinics. There are many vaccine clinic locations within the [facility]. For locations and available times, please visit [email or web address] v/. It is important to note that some COVID mobile vaccine clinics are held outdoors and may be canceled in rainy or stormy conditions. To learn more about pediatric vaccinations (ages 5-11), we invite you to visit the [facility] webpage. https://www.[employer].org/pag es/7855-Azhwj-Ztbepcwpcgw-Frequent ey-Sknvv-Zzjvczalo.html To learn more about the COVID-19 vaccine, we invite you to visit the CDC website for a list of frequently asked questions. https://www.cdc.gov/coronavirus/20 19-ncov/vaccines/faq.html [facility] Patient Portal Access Instructions: Stay connected with your healthcare team and access your personal medical information anytime with the [facility] Patient Portal. If you would like a full copy of your medical records please contact the [facility] Medical Records Department Monday through Monday between 8a.m. and 4:30p.m. Please follow the directions below to access the portal: 1.Access the email account you provided upon registration to the hospital.2.Look for an invitation email from [facility].3.Open the email and access the invitation link: Accept Invitation to [facility].Fill in the required somers to create your account. Sign into www.Buzz Lanes with your username and password that you [...] you will allow to register on the [facility] Patient Portal for access to your information. You can also access the [facility] Patient Portal on the Melon. Simply click on Health Records under Health Data and then click on the [employer] logo. HOW TO SAFELY DISPOSE OF PRESCRIPTION [...] Call your local pharmacy or go to [email or web address] to find one close to you.3.Make use of household items: Use cat litter or old coffee grounds to dispose medications if other options are not available. Mix your drugs with these household products, seal them in an airtight container and throw it into the garbage. Call [facility]: [phone] to be sure your drugs can be [...] aware that I should contact my doctor. Patient/Finger Cobbler Signature: Date/Time: Relationship to Patient: ___ Witness Name/Signature: Date/Time: [facility] 07-21-2023 Note ORIGINAL EXAMINATION: CT OF THE ABDOMEN AND PELVIS WITH BKOYGZZO30/13/2023 5:36 pm TECHNIQUE: CT of the abdomen [...] Sign Date: 07/21/2023 5:47:51 PM Ordering Provider: JENISE WATSONMike [facility] 03-08-2023 Hospital Discharge instructions Patient Education [...] loosen secretions in the nose and lungs. Jxzu-vys-jhgiatn cold medicines will not shorten the length of time you re sick, but they may be helpful for the following symptoms: cough, sore throat, and nasal and sinus congestion. If you take prescription medicines, ask your healthcare provider or pharmacist which lkan-uuo-okzrpic medicines are safe to use. (Note: Don't [...] it goes along with a muffled voice [phone] [employer]. [address] [place] [address], [place] [address]. All rights reserved. This information is not intended as a substitute for professional medical care. Always follow your healthcare professional's instructions. Follow Up Care 03/08/2023 11:58:09 With:FLORI HERNANDEZ DO Address: [address] [place] [phone] When:2-4 days [facility] 03-08-2023 Note Discharge Instructions Thank you for allowing [facility] to assist you with your healthcare needs. [...] the Following Appointments Follow Up with FLORI HERNANDEZ DO When Within 2-4 days Where: [address] [place] [phone] Allergies predniSONE (Sweats) Ceclor (Hives) Pediazole (Weakness, [...] retail pharmacies. Medication Leaflets albuterol (oral) (al CITLALLI ter kurtis) What is the most important information I [...] may report side effects to FDA at 9-303-DLY-0557. What other drugs will affect albuterol? Tell [...] drugs may affect albuterol, including prescription and ghgm-qtr-uyntfnf medicines, vitamins, and herbal products. Not all [...] to ensure that the information provided by [facility]. ('[employer]') is accurate, up-to-date, and complete, but no guarantee is made to that effect. Drug information contained herein may be time sensitive. [employer] information has been compiled for use by healthcare practitioners and consumers in the [place] and therefore [employer] does not warrant that uses outside of the [place] are appropriate, unless specifically indicated otherwise. [employer]'s drug information does not endorse drugs, diagnose patients or recommend therapy. [employer]s drug information is an informational resource designed [...] effective or appropriate for any given patient. [facility] does not assume any responsibility for any aspect of healthcare administered with the aid of information [facility] provides. The information contained herein is not intended to cover all possible uses, directions, precautions, warnings, drug interactions, allergic reactions, or adverse effects. If you have questions about the drugs you are taking, check with your doctor, nurse or pharmacist. Copyright 2289-0980 [facility]. Version: 3.01. Revision Date: 08/30/2019. Education Materials [...] loosen secretions in the nose and lungs. Smjo-lmu-lnlscik cold medicines will not shorten the length of time you re sick, but they may be helpful for the following symptoms: cough, sore throat, and nasal and sinus congestion. If you take prescription medicines, ask your healthcare provider or pharmacist which mxys-htg-tjaixhh medicines are safe to use. (Note: Don't [...] it goes along with a muffled voice 5746-1908 [employer]. [address] [place] [address]. All rights reserved. This information is not intended as a substitute for professional medical care. Always follow your healthcare professional's instructions. Additional Information VACCINATE! IT SAVES LIVES! Members of the community who have not yet received the COVID-19 vaccine and would like to receive it can visit one of [facility] vaccine clinics. There are many vaccine clinic locations within the [facility]. For locations and available times, please visit [email or web address] v/. It is important to note that some COVID mobile vaccine clinics are held outdoors and may be canceled in rainy or stormy conditions. To learn more about pediatric vaccinations (ages 5-11), we invite you to visit the [facility] webpage. https://www.[facility].org/pag es/7380-Mdwia-Agksegmrloy-Frequent na-Bmivq-Wlxdvxcty.html To learn more about the COVID-19 vaccine, we invite you to visit the CDC website for a list of frequently asked questions. https://www.cdc.gov/coronavirus/-ncov/vaccines/faq.html [facility] Patient Portal Access Instructions: Stay connected with your healthcare team and access your personal medical information anytime with the [facility] Patient Portal. If you would like a full copy of your medical records please contact the [facility] Medical Records Department Monday through Monday between 8a.m. and 4:30p.m. Please follow the directions below to access the portal: 1.Access the email account you provided upon registration to the [facility].2.Look for an invitation email from [facility].3.Open the email and access the invitation link: Accept Invitation to [facility]4.Fill in the required somers to create your account. Sign into [email or web address] with your username and password that you [...] you will allow to register on the [facility] Patient Portal for access to your information. You can also access the [facility] Patient Portal on the GoFormz bushra. Simply click on Health Records under Health [...] Call your local pharmacy or go to http://bit.[email or web address]/0Z4Od7h to find one close to you.3.Make use of household items: Use cat litter or old coffee grounds to dispose medications if other options are not available. Mix your drugs with these household products, seal them in an airtight container and throw it into the garbage. Call [facility]: [phone] to be sure your drugs can be [...] been reviewed and explained to me and I,CAROLINA MONTEIRO understand my current condition and have read and understand these discharge instructions. I have received a written copy of the plan/instructions. If I have questions, I am aware that I should contact my doctor. Patient/Finger Cobbler Signature: Date/Time: Relationship to Patient: ___ Witness Name/Signature: Date/Time: [facility] 03-08-2023 Note ORIGINAL EXAMINATION: TWO XRAY [...] Date: 03/08/2023 12:42:37 PM Ordering Provider: KRISTINE [facility] 03-08-2023 Note ORIGINAL EXAMINATION: TWO XRAY VIEWS [...] Date: 03/08/2023 12:42:37 PM [facility]ing [facility] Discharge instructions Patient Education 01/02/2023 [...] face You have trouble talking or seeing 8875-1828 [employer]. [address] [place] [address]. All rights reserved. This information is not intended as a substitute for professional medical care. Always follow your healthcare professional's instructions. Follow Up Care 01/02/2023 19:24:48 With:FLORI HERNANDEZ DO Address: [address] [place] [phone] When:2-4 days [facility] 01-02-2023 Note Discharge Instructions Thank you for allowing [facility] to assist you with your healthcare needs. The following is important discharge information regarding your hospital visit. Diagnosis from Today's Visit Dizziness Headache What to Do Next Instructions from Your Care Team No qualifying data available. Post Acute Orders No qualifying data available. You Need to Schedule the Following Appointments Follow Up with FLORI HERNANDEZ DO When Within 2-4 days Where: [address] [place] [phone] Allergies predniSONE (Sweats) Ceclor (Hives) Pediazole (Weakness, [...] face You have trouble talking or seeing 5080-8056 [employer]. [address] [place] [address]. All rights reserved. This information is not intended as a substitute for professional medical care. Always follow your healthcare professional's instructions. Additional Information VACCINATE! IT SAVES LIVES! Members of the community who have not yet received the COVID-19 vaccine and would like to receive it can visit one of [facility] vaccine clinics. There are many vaccine clinic locations within the [facility]. For locations and available times, please visit [email or web address] v/. It is important to note that some COVID mobile vaccine clinics are held outdoors and may be canceled in rainy or stormy conditions. To learn more about pediatric vaccinations (ages 5-11), we invite you to visit the [facility] webpage. https://www.[facility].org/pag es/9457-Qsftg-Wesbuoaxujs-Frequent sy-Czxfl-Frcavfsdq.html To learn more about the COVID-19 vaccine, we invite you to visit the CDC website for a list of frequently asked questions. https://www.cdc.gov/coronavirus/-ncov/vaccines/faq.html [facility] Patient Portal Access Instructions: Stay connected with your healthcare team and access your personal medical information anytime with the [facility] Patient Portal. If you would like a full copy of your medical records please contact the [facility] Medical Records Department Monday through Monday between 8a.m. and 4:30p.m. Please follow the directions below to access the portal: 1.Access the email account you provided upon registration to the [facility].2.Look for an invitation email from [facility].3.Open the email and access the invitation link: Accept Invitation to [facility]4.Fill in the required somers to create your account. Sign into [email or web address] with your username and password that you [...] you will allow to register on the [facility] Patient Portal for access to your information. You can also access the [facility] Patient Portal on the Melon. Simply click on Health Records under Health Data and then click on the R[employer]Pack logo. HOW TO SAFELY DISPOSE OF PRESCRIPTION [...] Call your local pharmacy or go to [email or web address] to find one close to you.3.Make use of household items: Use cat litter or old coffee grounds to dispose medications if other options are not available. Mix your drugs with these household products, seal them in an airtight container and throw it into the garbage. Call [facility]: [phone] to be sure your drugs can be [...] been reviewed and explained to me and I,CAROLINA MONTEIRO understand my current condition and have read and understand these discharge instructions. I have received a written copy of the plan/instructions. If I have questions, I am aware that I should contact my doctor. Patient/Finger Cobbler Signature: Date/Time: Relationship to Patient: ___ Witness Name/Signature: Date/Time: [facility] 11-03-2022 Hospital Discharge instructions Patient Education [...] delay the healing process. You may use ptpy-jue-tlpeytl pain medicine to control pain, unless another [...] as directed by your healthcare provider Mitch 2812-8203 [employer]. [address] [place] [address], [place] [address]. All rights reserved. This information is not intended as a substitute for professional medical care. Always follow your healthcare professional's instructions. Follow Up Care 11/03/2022 11:20:58 With:RASHEED THAPA Address: [address] [place] [phone] When:2-4 days [facility] 11-03-2022 Note Discharge Instructions Thank you for allowing [facility] to assist you with your healthcare needs. [...] RASHEED THAPA When Within 2-4 days Where: [address] [place] [phone] Allergies predniSONE (Sweats) Ceclor (Hives) Pediazole (Weakness, [...] or retail pharmacies. Medication Leaflets cyclobenzaprine (jt carlisle) Adonisix, Lupe Pac with Cyclobenzaprine, Fexmid What is the most important information I [...] may report side effects to FDA at 4-409-NSZ-2213. What other drugs will affect cyclobenzaprine? Using [...] drugs may affect cyclobenzaprine, including prescription and ycuu-mcv-itvnwtf medicines, vitamins, and herbal products. Not all [...] to ensure that the information provided by [facility]. ('[employer]') is accurate, up-to-date, and complete, but no guarantee is made to that effect. Drug information contained herein may be time sensitive. [employer] information has been compiled for use by healthcare practitioners and consumers in the [place] and therefore [employer] does not warrant that uses outside of the [place] are appropriate, unless specifically indicated otherwise. [employer] drug information does not endorse drugs, diagnose patients or recommend therapy. [employer] drug information is an informational resource designed [...] effective or appropriate for any given patient. [employer] does not assume any responsibility for any aspect of healthcare administered with the aid of information [employer] provides. The information contained herein is not intended to cover all possible uses, directions, precautions, warnings, drug interactions, allergic reactions, or adverse effects. If you have questions about the drugs you are taking, check with your doctor, nurse or pharmacist. Copyright 2192-5726 [facility]. Version: 5.01. Revision Date: 07/04/2018. methylprednisolone (oral) [...] may report side effects to FDA at 5-397-IIK-6092. What other drugs will affect methylprednisolone? Other drugs may interact with methylprednisolone, including prescription and rtlb-ohz-moxidka medicines, vitamins, and herbal products. Tell each [...] to ensure that the information provided by [facility]. ('[employer]') is accurate, up-to-date, and complete, but no guarantee is made to that effect. Drug information contained herein may be time sensitive. [employer] information has been compiled for use by healthcare practitioners and consumers in the [place] and therefore [employer] does not warrant that uses outside of the [place] are appropriate, unless specifically indicated otherwise. [employer] drug information does not endorse drugs, diagnose patients or recommend therapy. [employer] drug information is an informational resource designed [...] effective or appropriate for any given patient. [employer] does not assume any responsibility for any aspect of healthcare administered with the aid of information [employer] provides. The information contained herein is not intended to cover all possible uses, directions, precautions, warnings, drug interactions, allergic reactions, or adverse effects. If you have questions about the drugs you are taking, check with your doctor, nurse or pharmacist. Copyright 8719-7829 [facility]. Version: 9.01. Revision Date: 06/07/2017. Education Materials [...] delay the healing process. You may use atto-cyd-llfwhlk pain medicine to control pain, unless another [...] or as directed by your healthcare provider [place] 5026-7344 [employer]. [address] [place] [address], [place] [address]. All rights reserved. This information is not intended as a substitute for professional medical care. Always follow your healthcare professional's instructions. Additional Information VACCINATE! IT SAVES LIVES! Members of the community who have not yet received the COVID-19 vaccine and would like to receive it can visit one of [facility] vaccine clinics. There are many vaccine clinic locations within the [facility]. For locations and available times, please visit www.[email or web address] g. It is important to note that some COVID mobile vaccine clinics are held outdoors and may be canceled in rainy or stormy conditions. To learn more about pediatric vaccinations (ages 5-11), we invite you to visit the [facility] webpage. https://www.[employer] Softwares.org/pag es/2548-Ftsxv-Ylardmexfht-Frequent sr-Aossx-Krtddaedq.html To learn more about the COVID-19 vaccine, we invite you to visit the [facility] website for a list of frequently asked questions. https://Buzz Lanes/assets/Patient u-sla-Xcxagcka/qfung-Agilpiy-Upwdr ently_Asked-Questions.pdf [facility] Patient Portal Access Instructions: Stay connected with your healthcare team and access your personal medical information anytime with the [facility] Patient Portal. If you would like a full copy of your medical records please contact the [facility] Medical Records Department Monday through Monday between 8a.m. and 4:30p.m. Please follow the directions below to access the portal: 1.Access the email account you provided upon registration to the hospital.2.Look for an invitation email from [facility].3.Open the email and access the invitation link: Accept Invitation to [facility]4.Fill in the required somers to create your account. Sign into [email or web address] with your username and password that you [...] you will allow to register on the [facility] Patient Portal for access to your information. You can also access the [facility] Patient Portal on the GoFormz bushra. Simply click on Health Records under Health Data and then click on the RuckPack logo. HOW TO SAFELY DISPOSE OF PRESCRIPTION [...] Call your local pharmacy or go to [email or web address] [email or web address] to find one close to you.3.Make use of household items: Use cat litter or old coffee grounds to dispose medications if other options are not available. Mix your drugs with these household products, seal them in an airtight container and throw it into the garbage. Call [facility]: [phone] to be sure your drugs can be [...] been reviewed and explained to me and I,CAROLINA MONTEIRO understand my current condition and have read and understand these discharge instructions. I have received a written copy of the plan/instructions. If I have questions, I am aware that I should contact my doctor. Patient/Finger Cobbler Signature: Date/Time: Relationship to Patient: ___ Witness Name/Signature: Date/Time: [facility] 07-17-2022 Hospital Discharge instructions Patient Education [...] Black, tarry stool Involuntary weight loss Weakness 8816-5732 [employer]. [address] [place] [address], [place] [address]. All rights reserved. This information is not [...] foods again, start with small amounts of esvw-wd-sskusn, low-fat foods. These include apple sauce, toast, [...] increase stomach acid. Don't use aspirin or nadw-lwi-frtgrvr pain and fever medicines, if possible. This includes nonsteroidal anti-inflammatory drugs (NSAIDs). Lose excess weight. Finish eating at least 2 hours before you go to bed or lie down. Raise the head of your bed. 9665-5012 [employer]. [address] [place] [address]. All rights reserved. This information is not intended as a substitute for professional medical care. Always follow your healthcare professional's instructions. Follow Up Care 07/17/2022 17:42:05 With:RASHEED THAPA Address: [address] [facility] [place] [address] [phone] When:2-4 days [facility] 07-17-2022 Emergency department Discharge summary Discharge Instructions Thank you for allowing [facility] to assist you with your healthcare needs. The following is important discharge information regarding your hospital visit. Diagnosis from Today's Visit Abdominal pain What to Do Next Instructions from Your Care Team No qualifying data available. Post Acute Orders No qualifying data available. You Need to Schedule the Following Appointments Follow Up with RASHEED THAPA When Within 2-4 days Where: [address] [facility] [place] [phone]- [phone] Allergies predniSONE (Sweats) Ceclor (Hives) Pediazole (Weakness, [...] Black, tarry stool Involuntary weight loss Weakness 6244-6892 [employer]. [address] [place], [place] [id number]. All rights reserved. This information is not [...] foods again, start with small amounts of rkdr-lc-gfrkgr, low-fat foods. These include apple sauce, toast, [...] increase stomach acid. Don't use aspirin or bpox-eix-zexeycj pain and fever medicines, if possible. This includes nonsteroidal anti-inflammatory drugs (NSAIDs). Lose excess weight. Finish eating at least 2 hours before you go to bed or lie down. Raise the head of your bed. 4503-7811 [employer]. [address] [place] [address], [place] [address]. All rights reserved. This information is not intended as a substitute for professional medical care. Always follow your healthcare professional's instructions. Additional Information VACCINATE! IT SAVES LIVES! Members of the community who have not yet received the COVID-19 vaccine and would like to receive it can visit one of [facility] vaccine clinics. There are many vaccine clinic locations within the [facility]. For locations and available times, please visit www.getStore [email or web address].[email or web address].[email or web address] g. It is important to note that some COVID mobile vaccine clinics are held outdoors and may be canceled in rainy or stormy conditions. To learn more about pediatric vaccinations (ages 5-11), we invite you to visit the [facility] webpage. https://www.[facility].org/pag es/5617-Fdbxd-Lrhqvopssgp-Frequent uo-Qnssq-Uxehbmgld.html To learn more about the COVID-19 vaccine, we invite you to visit the [facility] website for a list of frequently asked questions. https://osmani.Topix/assets/Patient g-nzs-Vkxipqge/kvzse-Gjbwgxy-Mnhuw ently_Asked-Questions.pdf [facility] Patient Portal Access Instructions: Stay connected with your healthcare team and access your personal medical information anytime with the [facility] Patient Portal. If you would like a full copy of your medical records please contact the [facility] Medical Records Department Monday through Monday between 8a.m. and 4:30p.m. Please follow the directions below to access the portal: 1.Access the email account you provided upon registration to the [facility].2.Look for an invitation email from [facility].3.Open the email and access the invitation link: Accept Invitation to [facility]4.Fill in the required somers to create your [...] you will allow to register on the [facility] Patient Portal for access to your information. You can also access the [facility] Patient Portal on the GoFormz bushra. Simply click on Health Records under Health [...] Call your local pharmacy or go to [email or web address] Bioimaging.Cashually/[email or web address] to find one close to you.3.Make use of household items: Use cat litter or old coffee grounds to dispose medications if other options are not available. Mix your drugs with these household products, seal them in an airtight container and throw it into the garbage. Call [facility]: [phone] to be sure your drugs can be [...] been reviewed and explained to me and I,CAROLINA MONTEIRO understand my current condition and have read and understand these discharge instructions. I have received a written copy of the plan/instructions. If I have questions, I am aware that I should contact my doctor. Patient/Finger Cobbler Signature: Date/Time: Relationship to Patient: ___ Witness Name/Signature: Date/Time: [facility] 07-17-2022 Note Discharge Instructions Thank you for allowing [facility] to assist you with your healthcare needs. The following is important discharge information regarding your hospital visit. Diagnosis from Today's Visit Abdominal pain What to Do Next Instructions from Your Care Team No qualifying data available. Post Acute Orders No qualifying data available. You Need to Schedule the Following Appointments Follow Up with RASHEED THAPA When Within 2-4 days Where: [address] [facility] [place] [address] [phone] Allergies predniSONE (Sweats) Ceclor (Hives) Pediazole (Weakness, [...] Black, tarry stool Involuntary weight loss Weakness [phone] [employer]. [address] [place] [address], [place] [address]. All rights reserved. This information is not [...] foods again, start with small amounts of qjxz-xw-bgdtwb, low-fat foods. These include apple sauce, toast, [...] increase stomach acid. Don't use aspirin or nkst-zxy-pucarcv pain and fever medicines, if possible. This includes nonsteroidal anti-inflammatory drugs (NSAIDs). Lose excess weight. Finish eating at least 2 hours before you go to bed or lie down. Raise the head of your bed. [phone] [employer]. [address] [place] [address]. All rights reserved. This information is not intended as a substitute for professional medical care. Always follow your healthcare professional's instructions. Additional Information VACCINATE! IT SAVES LIVES! Members of the community who have not yet received the COVID-19 vaccine and would like to receive it can visit one of [facility] vaccine clinics. There are many vaccine clinic locations within the [facility]. For locations and available times, please visit [email or web address] g. It is important to note that some COVID mobile vaccine clinics are held outdoors and may be canceled in rainy or stormy conditions. To learn more about pediatric vaccinations (ages 5-11), we invite you to visit the [facility] webpage. https://www.[facility].org/pag es/8290-Cqtps-Felsziuhgis-Frequent hj-Mppfm-Xsdnnlsad.html To learn more about the COVID-19 vaccine, we invite you to visit the [facility] website for a list of frequently asked questions. [email or web address]/Patient h-jor-Zthkvfbe/jfwsg-Tfuiiyr-Qtozy ently_Asked-Questions.pdf [facility] Patient Portal Access Instructions: Stay connected with your healthcare team and access your personal medical information anytime with the [facility] Patient Portal. If you would like a full copy of your medical records please contact the [facility] Medical Records Department Monday through Monday between 8a.m. and 4:30p.m. Please follow the directions below to access the portal: 1.Access the email account you provided upon registration to the [facility].2.Look for an invitation email from [facility].3.Open the email and access the invitation link: Accept Invitation to [facility]4.Fill in the required somers to create your account. Sign into [email or web address] with your username and password that you [...] you will allow to register on the [facility] Patient Portal for access to your information. You can also access the [facility] Patient Portal on the GoFormz bushra. Simply click on Health Records under Health [...] Call your local pharmacy or go to http://bit.ly/0P2Pl4p to find one close to you.3.Make use of household items: Use cat litter or old coffee grounds to dispose medications if other options are not available. Mix your drugs with these household products, seal them in an airtight container and throw it into the garbage. Call [facility]: [phone] to be sure your drugs can be [...] aware that I should contact my doctor. Patient/Finger Cobbler Signature: Date/Time: Relationship to Patient: ___ Witness Name/Signature: Date/Time: [facility] Osmanieros Sharma 07-17-2022 Note Discharge Instructions Thank you for [...] THAPA When Within 2-4 days Where: [address] [facility] [place] [address]- [phone] Allergies predniSONE (Sweats) Ceclor (Hives) Pediazole (Weakness, [...] Black, tarry stool Involuntary weight loss Weakness [phone] [employer]. [address] [place] [address], [place] [address]. All rights reserved. This information is not [...] foods again, start with small amounts of uqah-lp-jwnjsu, low-fat foods. These include apple sauce, toast, [...] increase stomach acid. Don't use aspirin or azgq-peu-iwglkvw pain and fever medicines, if possible. This includes nonsteroidal anti-inflammatory drugs (NSAIDs). Lose excess weight. Finish eating at least 2 hours before you go to bed or lie down. Raise the head of your bed. [phone] [employer]. [address] [place] [address], [place] [address]. All rights reserved. This information is not intended as a substitute for professional medical care. Always follow your healthcare professional's instructions. Additional Information VACCINATE! IT SAVES LIVES! Members of the community who have not yet received the COVID-19 vaccine and would like to receive it can visit one of [facility] vaccine clinics. There are many vaccine clinic locations within the [facility]. For locations and available times, please visit [email or web address] g. It is important to note that some COVID mobile vaccine clinics are held outdoors and may be canceled in rainy or stormy conditions. To learn more about pediatric vaccinations (ages 5-11), we invite you to visit the [employer] webpage. https://www.[employer].org/pag es/1175-Vjdoh-Undudqoerya-Frequent dt-Uikli-Oztmucfms.html To learn more about the COVID-19 vaccine, we invite you to visit the [facility] website for a list of frequently asked questions. [email or web address]/Patient f-xbz-Uqnhzles/allao-Zyepdov-Qylcz ently_Asked-Questions.pdf [facility] Patient Portal Access Instructions: Stay connected with your healthcare team and access your personal medical information anytime with the [facility] Patient Portal. If you would like a full copy of your medical records please contact the [facility] Medical Records Department Monday through Monday between 8a.m. and 4:30p.m. Please follow the directions below to access the portal: 1.Access the email account you provided upon registration to the [facility].2.Look for an invitation email from [facility].3.Open the email and access the invitation link: Accept Invitation to [facility]4.Fill in the required somers to create your account. Sign into [email or web address] with your username and password that you [...] you will allow to register on the [facility] Patient Portal for access to your information. You can also access the [facility] Patient Portal on the GoFormz bushra. Simply click on Health Records under Health Data and then click on the [employer] logo. HOW TO SAFELY DISPOSE OF PRESCRIPTION [...] Call your local pharmacy or go to [email or web address] to find one close to you.3.Make use of household items: Use cat litter or old coffee grounds to dispose medications if other options are not available. Mix your drugs with these household products, seal them in an airtight container and throw it into the garbage. Call [facility]: [phone] to be sure your drugs can be [...] been reviewed and explained to me and I,CAROLINA MONTEIRO understand my current condition and have read and understand these discharge instructions. I have received a written copy of the plan/instructions. If I have questions, I am aware that I should contact my doctor. Patient/Finger Cobbler Signature: Date/Time: Relationship to Patient: ___ Witness Name/Signature: Date/Time: [facility] 07-17-2022 Note ORIGINAL EXAMINATION: CT OF [...] Sign Date: 07/17/2022 8:45:08 PM Ordering Provider: [facility] 07-17-2022 Note ORIGINAL EXAMINATION: CT OF THE [...] Sign Date: 07/17/2022 8:45:08 PM Ordering Provider: [facility] 06-19-2022 Hospital Discharge instructions Patient Education 06/19/2022 [...] Black, tarry stool Involuntary weight loss Weakness [phone] [employer]. [address] [place] [address]. All rights reserved. This information is not [...] Black, tarry stool Involuntary weight loss Weakness [phone] [employer]. [address] [place] [address]. All rights reserved. This information is not intended as a substitute for professional medical care. Always follow your healthcare professional's instructions. Follow Up Care 06/19/2022 13:58:43 With:RAI ALVARADO MD Address: [facility] YULISA MORALES [address] [place] [address]- When:2-4 days With:RASHEED THAPA Address: [address] [place] [phone] When:2-4 days only if needed [facility] 06-19-2022 Note Discharge Instructions Thank you for allowing [facility] to assist you with your healthcare needs. [...] When Within 2-4 days Where: Alyse MORALES [address] [place] [address]- Follow Up with RASHEED THAPA When Within 2-4 days, only if needed Where: [address] [place] [phone] Allergies predniSONE (Sweats) Ceclor (Hives) Pediazole (Weakness, [...] Black, tarry stool Involuntary weight loss Weakness [phone] [employer]. [address] [place] [address], [place] [address]. All rights reserved. This information is not [...] Black, tarry stool Involuntary weight loss Weakness [phone] [employer]. [address] [place] [address]. All rights reserved. This information is not intended as a substitute for professional medical care. Always follow your healthcare professional's instructions. Additional Information VACCINATE! IT SAVES LIVES! Members of the community who have not yet received the COVID-19 vaccine and would like to receive it can visit one of [facility] vaccine clinics. There are many vaccine clinic locations within the [facility]. For locations and available times, please visit [email or web address] g. It is important to note that some COVID mobile vaccine clinics are held outdoors and may be canceled in rainy or stormy conditions. To learn more about pediatric vaccinations (ages 5-11), we invite you to visit the [facility] webpage. https://www.[facility].org/pag es/8273-Saaml-Ewzlfhmczgf-Frequent bb-Eyipe-Nhqtqzida.html To learn more about the COVID-19 vaccine, we invite you to visit the [facility] website for a list of frequently asked questions. [email or web address]://[email or web address]/assets/Patient e-nhc-Laiebkdq/baror-Eqmnfku-Wcpll ently_Asked-Questions.pdf [facility] Patient Portal Access Instructions: Stay connected with your healthcare team and access your personal medical information anytime with the [facility] Patient Portal. If you would like a full copy of your medical records please contact the [facility] Medical Records Department Monday through Monday between 8a.m. and 4:30p.m. Please follow the directions below to access the portal: 1.Access the email account you provided upon registration to the [facility].2.Look for an invitation email from [facility].3.Open the email and access the invitation link: Accept Invitation to [facility]4.Fill in the required somers to create your account. Sign into [email or web address] with your username and password that you [...] you will allow to register on the [facility] Patient Portal for access to your information. You can also access the [facility] Patient Portal on the GoFormz bushra. Simply click on Health Records under Health [...] Call your local pharmacy or go to http://bit.Cashually/[email or web address] to find one close to you.3.Make use of household items: Use cat litter or old coffee grounds to dispose medications if other options are not available. Mix your drugs with these household products, seal them in an airtight container and throw it into the garbage. Call [facility]: [phone] to be sure your drugs can be [...] aware that I should contact my doctor. Patient/Finger Cobbler Signature: Date/Time: Relationship to Patient: ___ Witness Name/Signature: Date/Time: [facility] 06-19-2022 Note ORIGINAL EXAMINATION: CT OF [...] 06/19/2022 4:41:02 PM Ordering Provider: PROSPER ROMERO [facility] 06-19-2022 Note ORIGINAL EXAMINATION: CT OF [...] 06/19/2022 4:41:02 PM Ordering Provider: PROSPER ROMERO [facility] 05-24-2022 Evaluation + Plan note Future Scheduled TestsD-Dimer 05/24/22Complete Blood Count 05/24/22Complete Metabolic Panel 01/13/22Complete Metabolic Panel 05/24/22XR Chest 2 Views (PA & Lateral) 05/24/22 [facility] 05-22-2022 Note Discharge Instructions Thank you for allowing [facility] to assist you with your healthcare needs. [...] to receive it can visit one of [facility] vaccine clinics. There are many vaccine clinic locations within the [facility]. For locations and available times, please visit [email or web address] g. It is important to note that some COVID mobile vaccine clinics are held outdoors and may be canceled in rainy or stormy conditions. To learn more about pediatric vaccinations (ages 5-11), we invite you to visit the [facility] webpage. https://www.[facility].org/pag es/2881-Ukhjr-Gqkirsivben-Frequent fs-Ttxhi-Brusovuzx.html To learn more about the COVID-19 vaccine, we invite you to visit the [facility] website for a list of frequently asked questions. https://[email or web address].Topix/assets/Patient e-vzy-Tlqjfblj/sjcgw-Zriqkqn-Bcryu ently_Asked-Questions.pdf [facility] Patient Portal Access Instructions: Stay connected with your healthcare team and access your personal medical information anytime with the [facility] Patient Portal. If you would like a full copy of your medical records please contact the [facility] Medical Records Department Monday through Monday between 8a.m. and 4:30p.m. Please follow the directions below to access the portal: 1.Access the email account you provided upon registration to the hospital.2.Look for an invitation email from [facility].3.Open the email and access the invitation link: Accept Invitation to [facility]4.Fill in the required somers to create your [...] you will allow to register on the [facility] Patient Portal for access to your information. You can also access the [facility] Patient Portal on the Melon. Simply click on Health Records under Health [...] Call your local pharmacy or go to [email or web address].Cashually/[email or web address] to find one close to you.3.Make use of household items: Use cat litter or old coffee grounds to dispose medications if other options are not available. Mix your drugs with these household products, seal them in an airtight container and throw it into the garbage. Call [facility]: [phone] to be sure your drugs can be [...] been reviewed and explained to me and I,CAROLINA MONTEIRO understand my current condition and have read and understand these discharge instructions. I have received a written copy of the plan/instructions. If I have questions, I am aware that I should contact my doctor. Patient/Finger Cobbler Signature: Date/Time: Relationship to Patient: ___ Witness Name/Signature: Date/Time: [facility] 05-22-2022 Note ORIGINAL EXAMINATION: ONE XRAY [...] Sign Date: 05/22/2022 1:27:08 PM Ordering Provider: [facility] 05-22-2022 Note ORIGINAL EXAMINATION: ONE XRAY VIEW [...] Date: 05/22/2022 1:27:08 PM Ordering Provider: [facility] 05-19-2022 Miscellaneous Notes Pt is no longer [facility]. Will remove from demos and update flowsheet. Ashli Madrid APRN.CNP documented in this encounter [facility] 05-18-2022 Instructions Misty Cabral APRN.CNP - 05/18/2022 8:40 AM EDT Beginning Home Isolation Isolation is used to separate people infected with SARS-CoV-2, the virus that causes COVID-19, from people who are not infected. People who are in isolation should stay home until it s safe for them to be around others. In the home, anyone sick or infected should separate themselves from others by staying in a specific sick room or area and using a separate bathroom (if available). Isolation or Quarantine: What's the difference? Quarantine keeps someone who might have been exposed to the virus away from others. Isolation keeps someone who is infected with the virus away from others, even in their home. Who needs to isolate People who have COVID-19 People who have symptoms of COVID-19 and are able to recover at home People who have no symptoms (are asymptomatic) but have tested positive for infection with SARS-CoV-2 Steps to take Stay home except to get medical care Monitor your symptoms. Stay in a separate room from other household members, if possible Use a separate bathroom, if possible Avoid contact with other members of the household and pets Don t share personal household items, like cups, towels, and utensils Wear a mask when around other people, if you are able to When to seek emergency medical attention Look for emergency warning signs* for COVID-19. If someone is showing any of these signs, seek emergency medical care immediately: Trouble breathing Persistent pain or pressure in the chest New confusion Inability to wake or stay awake Bluish lips or face *This list is not all possible symptoms. Please call your medical provider for any other symptoms that are severe or concerning to you. Call 911 or call ahead to your local emergency facility: Notify the roll forming machine set up operator that you are seeking care for someone who has or may have COVID-19. Ending Home Isolation - When you can be around others after you had or likely had COVID-19 When you can be around others after you had or likely had COVID-19 If You Test Positive for COVID-19 (Isolation) Everyone, regardless of vaccination status: Stay home for 5 days. Note: Day 0 is your first day of symptoms or the date of collection of a positive viral test if no symptoms. Day 1 is the first full day after symptoms developed or test specimen was collected. If you have no symptoms or your symptoms are resolving after 5 days, you can leave your house. Continue to wear a mask around others for 5 additional days. If you have a fever, continue to stay home until your fever resolves, even if it is longer than 5 days. If You Were Exposed to Someone with COVID-19 (Quarantine) If you: 1. Have been boosted OR 2. Completed the primary series of Pfizer or Moderna vaccine within the last 6 months OR 3. Completed the primary series of J&J vaccine within the last 2 months THEN: 1. Wear a mask around others for 10 days. 2. Test on day 5, if possible. If you develop symptoms get a test and stay home. If You Were Exposed to Someone with COVID-19 (Quarantine) If you: 1. Completed the primary series of Pfizer or Moderna vaccine over 6 months ago and are not boosted OR 2. Completed the primary series of J&J over 2 months ago and are not boosted OR 3. Are unvaccinated THEN: 1. Stay home for 5 days. After that continue to wear a mask around others for 5 additional days. 2. If you can't quarantine you must wear a mask for 10 days. 3. Test on day 5 if possible. If you develop symptoms get a test and stay home. I had COVID-19 or I tested positive for COVID-19 and I have a weakened immune system If you have a weakened immune system (immunocompromised) due to a health condition or medication, you might need to stay home and isolate longer than 10 days. Talk to your healthcare provider for more information. Your doctor may work with an infectious disease expert at your local health department to determine when you can be around others. documented in this encounter [facility] 05-18-2022 History of Present illness Narrative This note was created using [employer] Checkriter. Subjective Carloina Monteiro is a 37 year old female. 37 year old female with no PMH presents with concerns for COVID. Acute onset 3 days ago +headache +cough +sore throat +runny nose +fever +body aches States that she had a home COVID last night that was positive. Has had COVID in the past. States that her employer is looking for PCR confirmation. She comes with her daughter, who is a patient as well, who is displaying similar sx. The history is provided by the patient. No wood milling machine hand was used. URI She complains of cough. There is no chest tightness, difficulty breathing, frequent throat clearing, hemoptysis, hoarse voice, shortness of breath, sputum production or wheezing. This is a new problem. The current episode started in the past 7 days. The problem occurs constantly. The problem has been unchanged. The cough is non-productive. Associated symptoms include appetite change, a fever, headaches, malaise/fatigue, myalgias, nasal congestion, rhinorrhea, sneezing and a sore throat. Pertinent negatives include no chest pain, dyspnea on exertion, ear congestion, ear pain, heartburn, orthopnea, PND, postnasal drip, sweats, trouble swallowing or weight loss. Her symptoms are aggravated by nothing. Her symptoms are alleviated by nothing. She reports no improvement on treatment. Ineffective treatments: OTC Tylenol. Risk factors for lung disease include occupational exposure. There is no history of asthma, bronchiectasis, bronchitis, COPD, emphysema or pneumonia. PAST MEDICAL HISTORY Diagnosis Date Anxiety DDD (degenerative disc disease), lumbar PAST SURGICAL HISTORY Procedure Laterality Date ADENOIDECTOMY PRIMARY <AGE 10 APPENDECTOMY CHOLECYSTECTOMY 2010 ERCP 2010 stent placed OVARIAN CYSTECTOMY UNI/BI PAST SURGICAL HISTORY OF 1992 surgery on nasal septum PAST SURGICAL HISTORY OF 1996 lumpectomy on left breast PAST SURGICAL HISTORY OF 2006 bulging disc repair ALLERGIES Clindamycin, Dilaudid [Hydromorphone (Bulk)], Penicillins, and Tylenol [Acetaminophen] MEDICATIONS lamotrigine (LAMICTAL ORAL) Take by mouth. clonazePAM (KLONOPIN) 1 mg tablet Take 1 mg by mouth twice daily as needed. tiZANidine (ZANAFLEX) 4 mg tablet take 1 tablet by mouth every 8 hours if needed for muscle spasm (Patient not taking: Reported on 05/18/2022) BACLOFEN ORAL Take by mouth. (Patient not taking: Reported on 05/18/2022) FAMILY HISTORY Problem Relation Age of Onset None Mother Hypertension Father other (hypercholestermia) Father Cancer Maternal Grandmother Heart Maternal Grandfather Social History Tobacco Use Smoking status: Former Smokeless tobacco: Never Vaping Use Vaping Use: Never used Substance Use Topics Alcohol use: No Drug use: No Review of Systems Constitutional: Positive for appetite change, fever and malaise/fatigue. Negative for weight loss. HENT: Positive for congestion, rhinorrhea, sinus pressure, sinus pain, sneezing and sore throat. Negative for ear pain, hoarse voice, postnasal drip and trouble swallowing. Eyes: Negative for photophobia, pain, discharge, redness, itching and visual disturbance. Respiratory: Positive for cough. Negative for apnea, hemoptysis, sputum production, choking, chest tightness, shortness of breath and wheezing. Cardiovascular: Negative for chest pain, dyspnea on exertion, palpitations, leg swelling and PND. Gastrointestinal: Negative for abdominal pain, diarrhea, heartburn, nausea and vomiting. Musculoskeletal: Positive for myalgias. Negative for arthralgias and back pain. Skin: Negative for color change, pallor, rash and wound. Allergic/Immunologic: Negative for environmental allergies, food allergies and immunocompromised state. Neurological: Positive for headaches. Negative for dizziness and facial asymmetry. Hematological: Negative for adenopathy. Does not bruise/bleed easily. Psychiatric/Behavioral: Negative for agitation and behavioral problems. Objective BP 100/62 Pulse 117 Temp (!) 38.2 C (100.7 F) Resp 21 Wt 70 kg (154 lb 6.4 oz) LMP 09/14/2020 SpO2 98% Physical Exam Vitals and nursing note reviewed. Constitutional: General: She is not in acute distress. Appearance: Normal appearance. She is normal weight. She is not ill-appearing, toxic-appearing or diaphoretic. HENT: Head: Normocephalic and atraumatic. Right Ear: Ear canal and external ear normal. Left Ear: Ear canal and external ear normal. Nose: Nose normal. No congestion or rhinorrhea. Mouth/Throat: Mouth: Mucous membranes are moist. Pharynx: No oropharyngeal exudate or posterior oropharyngeal erythema. Eyes: General: Right eye: No discharge. Left eye: No discharge. Extraocular Movements: Extraocular movements intact. Conjunctiva/sclera: Conjunctivae normal. Pupils: Pupils are equal, round, and reactive to light. Cardiovascular: Rate and Rhythm: Normal rate and regular rhythm. Pulses: Normal pulses. Heart sounds: Normal heart sounds. No murmur heard. No friction rub. Pulmonary: Effort: Pulmonary effort is normal. No respiratory distress. Breath sounds: Normal breath sounds. No stridor. No wheezing, rhonchi or rales. Chest: Chest wall: No tenderness. Abdominal: General: Abdomen is flat. There is no distension. Palpations: Abdomen is soft. There is no mass. Tenderness: There is no abdominal tenderness. There is no right CVA tenderness, left CVA tenderness, guarding or rebound. Hernia: No hernia is present. Musculoskeletal: General: No swelling, tenderness, deformity or signs of injury. Normal range of motion. Cervical back: Normal range of motion and neck supple. No rigidity. Right lower leg: No edema. Left lower leg: No edema. Lymphadenopathy: Cervical: No cervical adenopathy. Skin: General: Skin is warm and dry. Capillary Refill: Capillary refill takes less than 2 seconds. Coloration: Skin is not jaundiced or pale. Findings: No bruising, erythema, lesion or rash. Neurological: General: No focal deficit present. Mental Status: She is alert and oriented to person, place, and time. Cranial Nerves: No cranial nerve deficit. Sensory: No sensory deficit. Motor: No weakness. Coordination: Coordination normal. Gait: Gait normal. Psychiatric: Mood and Affect: Mood normal. Behavior: Behavior normal. Thought Content: Thought content normal. Judgment: Judgment normal. Assessment and Plan ASSESSMENT/PLAN: 1. Suspected COVID-19 virus infection - ICD9: V01.79, ICD10: Z20.822 Symptoms x 3 days +home COVID test Employer requesting COVID testing Supportive measures Follow up with PCP - CAREGIVER COVID + FLU A/B, ROUTINE-pending - KETOROLAC 60 MG/2 ML INTRAMUSCULAR SOLUTION-provided here in clinic Misty Cabral APRN.CROSS CUT SAW OPERATOR documented in this encounter [facility] 03-22-2022 Hospital Discharge instructions Patient Education 03/22/2022 16:55:57 Knee Effusion Fluid on the Knee Fluid on the knee is also known as knee effusion. The knee joint normally has less than 1 ounce of fluid. Injury or inflammation of the knee joint causes extra fluid to collect there. When this happens, the knee joint looks swollen and is often painful. It may be hard to fully bend the knee. The most common cause of fluid on the knee is osteoarthritis due to wear and tear on the joint cartilage. Other causes include injury to the cartilage, inflammatory arthritis such as gout or rheumatoid arthritis, and infection of the joint. If the cause of the fluid is not certain, you may need a needle aspiration. This procedure removes a sample of joint fluid from the knee for testing. Removing excess fluid may also relieve swelling and pain. Home care Limit your activities. Stay off the injured leg as much as possible until pain improves. Keep your leg elevated to reduce pain and swelling. When sleeping, place a pillow under the injured leg. When sitting, support the injured leg so it is above heart level. This is very important during the first 48 hours. Apply an ice pack over the injured area for 15 to 20 minutes every 3 to 6 hours. You should do this for the first 24 to 48 hours. You can make an ice pack by filling a plastic bag that seals at the top with ice cubes and then wrapping it with a thin towel. Continue to use ice packs for relief of pain and swelling as needed. As the ice melts, be careful not to get your wrap, splint, or cast wet. After 48 hours, apply heat (warm shower or warm bath) for 15 to 20 minutes several times a day, or alternate ice and heat. If you have to wear a bopl-xvi-umlm knee brace, you can open it to apply the ice pack, or heat, directly to the knee. Never put ice directly on the skin. Always wrap the ice in a towel or other type of cloth. You may use vdvf-wkr-jofntnk pain medicine to control pain, unless another pain medicine was prescribed. If you have chronic liver or kidney disease or have ever had a stomach ulcer or gastrointestinal bleeding, talk with your healthcare provider before using these medicines. If crutches or a walker have been recommended, don't put weight on the injured leg until you can do so without pain. Check with your healthcare provider before returning to sports or full work duties. If you have a zcqp-wuz-wyfv knee brace, you can remove it to bathe and sleep, unless told otherwise. Follow-up care Follow up with your healthcare provider as advised. If you are overweight, talk to your healthcare provider about a weight loss program. The excess weight puts extra strain on your knees. When to seek medical advice Call your healthcare provider right away if any of these occur: Increasing pain, redness, or swelling of the knee Fever of 100.4 F (38 C) or above lasting for 24 to 48 hours, or as advised Shaking chills [id number] [employer]. [address] [place] [address], [place] [address]. All rights reserved. This information is not intended as a substitute for professional medical care. Always follow your healthcare professional's instructions. Follow Up Care 03/22/2022 16:20:09 With:Adalid Brown Address: When:03/24/2022 [facility] 01-13-2022 Evaluation + Plan note Future Scheduled TestsComplete Metabolic Panel 01/13/22 [facility] 01-09-2022 Hospital Discharge instructions Patient Education 01/09/2022 09:58:46 Back Care Tips Back Care Tips Caring for your back These are things you can do to prevent a recurrence of acute back pain and to reduce symptoms from chronic back pain: Maintain a healthy weight. If you are overweight, losing weight will help most types of back pain. Exercise is an important part of recovery from most types of back pain. The muscles behind and in front of the spine support the back. This means strengthening both the back muscles and the abdominal muscles will provide better support for your spine. Swimming and brisk walking are good overall exercises to improve your fitness level. Practice safe lifting methods (below). Practice good posture when sitting, standing and walking. Avoid prolonged sitting. This puts more stress on the lower back than standing or walking. Wear quality shoes with sufficient arch support. Foot and ankle alignment can affect back symptoms. Women should avoid wearing high heels. Therapeutic massage can help relax the back muscles without stretching them. During the first 24 to 72 hours after an acute injury or flare-up of chronic back pain, apply an ice pack to the painful area for 20 minutes and then remove it for 20 minutes, over a period of 60 to 90 minutes, or several times a day. As a safety precaution, do not use a heating pad at bedtime. Sleeping on a heating pad can lead to skin gaytan or tissue damage. You can alternate ice and heat therapies. Medicines Talk to your healthcare provider before using medicines, especially if you have other medical problems or are taking other medicines. You may use acetaminophen or ibuprofen to control pain, unless your healthcare provider prescribed other pain medicine. If you have chronic conditions like diabetes, liver or kidney disease, stomach ulcers, or gastrointestinal bleeding, or are taking blood thinners, talk with your healthcare provider before taking any medicines. Be careful if you are given prescription pain medicines, narcotics, or medicine for muscle spasm. They can cause drowsiness, affect your coordination, reflexes, and judgment. Do not drive or operate heavy machinery while taking these types of medicines. Take prescription pain medicine only as prescribed by your healthcare provider. Lumbar stretch Here is a simple stretching exercise that will help relax muscle spasm and keep your back more limber. If exercise makes your back pain worse, don t do it. Lie on your back with your knees bent and both feet on the ground. Slowly raise your left knee to your chest as you flatten your lower back against the floor. Hold for 5 seconds. Relax and repeat the exercise with your right knee. Do 10 of these exercises for each leg. Safe lifting method Don t bend over at the waist to lift an object off the floor. Instead, bend your knees and hips in a squat. Keep your back and head upright Hold the object close to your body, directly in front of you. Straighten your legs to lift the object. Lower the object to the floor in the reverse fashion. If you must slide something across the floor, push it. Posture tips Sitting Sit in chairs with straight backs or low-back support. Keep your knees lower than your hips, with your feet flat on the floor. When driving, sit up straight. Adjust the seat forward so you are not leaning toward the steering wheel. A small pillow or rolled towel behind your lower back may help if you are driving long distances. Standing When standing for long periods, shift most of your weight to one leg at a time. Alternate legs every few minutes. Sleeping The best way to sleep is on your side with your knees bent. Put a low pillow under your head to support your neck in a neutral spine position. Avoid thick pillows that bend your neck to one side. Put a pillow between your legs to further relax your lower back. If you sleep on your back, put pillows under your knees to support your legs in a slightly flexed position. Use a firm mattress. If your mattress sags, replace it, or use a 1/2-inch plywood board under the mattress to add support. Follow-up care Follow up with your healthcare provider, or as advised. If X-rays, a CT scan or an MRI scan were taken, they will be reviewed by a radiologist. You will be notified of any new findings that may affect your care. Call 911 Call 911 if any of the following occur: Trouble breathing Confusion Very drowsy Fainting or loss of consciousness Rapid or very slow heart rate Loss of bowel or bladder control When to seek medical advice Call your healthcare provider right away if any of the following occur: Pain becomes worse or spreads to your arms or legs Weakness or numbness in one or both arms or legs Numbness in the groin area [id number] [employer]. [address] [place] [address]. All rights reserved. This information is not intended as a substitute for professional medical care. Always follow your healthcare professional's instructions. Follow Up Care 01/09/2022 09:20:31 With:DO AMADOR CANSECO DO Address: When:2-4 days [facility] 07-05-2021 History of Present illness Narrative Radiology Service Progress Note PATIENT NAME: Carolina Monteiro DATE OF SERVICE: July 05, 2021 TIME: 6:09 PM PATIENT IDENTITY VERIFICATION COMPLETED USING TWO (2) IDENTIFIERS: Name and Date of confirmed by patient verbally. FALL SCREENING: Has the patient had 2 falls in the last year or 1 fall with injury or currently using an Ambulatory Assistive Device (Walker, Cane, Wheelchair, Crutches, etc.)? No PATIENT GENDER DATA: Female. status: : No status: NO. PATIENT RELEVANT IMPLANT DATA REVIEWED: Yes RADIOLOGY DEPARTMENT: General X-ray: Exam(s) Completed: Lower Extremity X-Ray(s): Toes, Left PERIPHERAL IV DATA: Not applicable SIGNED BY: RT Ledy(R) July 05, 2021 6:09 PM documented in this encounter [facility] 12-23-2020 History of Present illness Narrative Radiology Service Progress Note PATIENT NAME: Carolina Monteiro DATE OF SERVICE: December 23, 2020 TIME: 9:24 AM PATIENT IDENTITY VERIFICATION COMPLETED USING TWO (2) IDENTIFIERS: Name and Date of confirmed by patient verbally. FALL SCREENING: Has the patient had 2 falls in the last year or 1 fall with injury or currently using an Ambulatory Assistive Device (Walker, Cane, Wheelchair, Crutches, etc.)? No PATIENT GENDER DATA: Female. status: : No status: NO. PATIENT RELEVANT IMPLANT DATA REVIEWED: Not Applicable RADIOLOGY DEPARTMENT: General X-ray: Exam(s) Completed: Upper Extremity X-Ray(s): Elbow, right : PERIPHERAL IV DATA: Not applicable SIGNED BY: RT Kelsey December 23, 2020 9:24 AM documented in this encounter [facility] Evaluation + Plan note Future Appointments Appointment Date:01/13/2022 10:10:00 AM Scheduled Provider:RASHEED THAPA Location:[facility] Appointment Type:PC OV Follow Up [facility] Evaluation + Plan note Future Appointments Appointment Date:03/29/2022 08:10:00 AM Scheduled Provider:RASHEED THAPA Location:[facility] Appointment Type:PC OV Appointment Date:05/09/2022 03:20:00 PM Scheduled Provider:RASHEED THAPA Location:[facility] Appointment Type:PC OV Controlled Medication Future Scheduled TestsComplete Metabolic Panel 01/13/22 [facility] Evaluation + Plan note Future Appointments Appointment Date:01/10/2023 02:00:00 PM Scheduled Provider:FLORI HERNANDEZ DO Location:[facility] Appointment Type:PC OV Controlled Medication Future Scheduled TestsD-Dimer 05/24/22Complete Blood Count 05/24/22Complete Metabolic Panel 01/13/22Complete Metabolic Panel 05/24/22XR Chest 2 Views (PA & Lateral) 05/24/22 [facility] Evaluation + Plan note Future Appointments Appointment Date:03/16/2023 07:30:00 AM Scheduled Provider:DAVID, FLORI DO Location:[facility] Appointment Type:PC OV Controlled Medication Future Scheduled TestsD-Dimer 05/24/22Complete Blood Count 05/24/22Complete Metabolic Panel 05/24/22XR Chest 2 Views (PA & Lateral) 05/24/22 [facility] Evaluation + Plan note Future Appointments Appointment Date:08/21/2023 08:00:00 AM Scheduled Provider:FLORI HERNANDEZ DO Location:[facility] Appointment Type:PC OV Appointment Date:09/18/2023 04:30:00 PM Scheduled Provider:FLORI HERNANDEZ DO Location:[facility] Appointment Type:PC OV Diagnostic Tests PendingUrine Culture 07/21/23 [facility] Evaluation + Plan note Future Appointments Appointment Date:04/16/2024 08:00:00 AM Scheduled Provider:FLORI HERNANDEZ DO Location:[facility] Appointment Type:PC OV [facility] Evaluation + Plan note Future Appointments Appointment Date:04/16/2024 08:00:00 AM Scheduled Provider:FLORI HERNANDEZ DO Location:[facility] Appointment Type:PC OV Appointment Date:04/22/2024 01:00:00 PM Scheduled Provider:FLORI HERNANDEZ DO Location:[facility] Appointment Type:PC OV [facility] Evaluation + Plan note Future Appointments Appointment Date:07/23/2024 08:00:00 AM Scheduled Provider:FLORI HERNANDEZ DO Location:[facility] Appointment Type:PC OV Future Scheduled TestsMRI Knee w/o Contrast Right 05/24/24 [facility] Evaluation + Plan note Future Appointments Appointment Date:07/23/2024 08:00:00 AM Scheduled Provider:FLORI HERNANDEZ DO Location:[facility] Appointment Type:PC OV Diagnostic Tests PendingUrinalysis w/ C&S if Indicated 06/10/24Urine test (LAB) 06/10/24 Future Scheduled TestsMRI Knee w/o Contrast Right 05/24/24 [facility] Evaluation + Plan note Future Appointments Appointment Date:01/21/2025 08:00:00 AM Scheduled Provider:FLORI HERNANDEZ DO Location:[facility] Appointment Type:PC OV Future Scheduled TestsMRI Knee w/o Contrast Right 05/24/24 [facility] Evaluation note Diagnosis Suspected COVID-19 virus infection- Primary documented in this encounter [facility] note* Diagnosis Cervical paraspinal muscle spasm- Primary Spasm of muscle documented in this encounter [facility] note* Diagnosis Nausea and vomiting, unspecified vomiting type- Primary documented in this encounter [facility] note* Diagnosis Muscle strain- Primary Unspecified site of sprain and strain documented in this encounter [facility] note* Diagnosis Visit for suture removal- Primary Encounter for removal of sutures documented in this encounter [facility] note* Diagnosis Pain of toe of left foot Pain in limb documented in this encounter [facility] note* Diagnosis Pain of right upper [facility] N[facility] No data available for this section [facility] Hospital Discharge instructions No data available for this section [facility] Progress note No data available for this section [facility] Reason for referral (narrative)* Diagnostic Procedure Only (Urgent) - Closed Specialty Diagnoses / Procedures Referred By Darshan t Referred To Contact XR IMAGING Diagnoses Pain of toe of left foot Procedures XR TOE AP/LAT/OBL LT X-RAY TOE(S) Misty Cabral, WASHING MACHINE INSTALLER.CROSS CUT SAW OPERATOR [address] [place] [address] [place] [address] Referral ID Status Reason Start Date Expiration Date V isits Requested Visits Authorized [id number] Closed Auto-Generate d Referral 07/04/2021 08/03/2022 1 1 [facility] for visit Narrative* Diagnostic Procedure Only (Urgent) - Closed Specialty Diagnoses / Procedures Referred By Contac t Referred To Contact XR IMAGING Diagnoses Pain of toe of left foot Procedures XR TOE AP/LAT/OBL LT X-RAY TOE(S) Misty Cabral APRN.CROSS CUT SAW OPERATOR [address] [place] [address] [place] [address] Referral ID Status Reason Start Date Expiration Date V isits Requested Visits Authorized [id number] Closed Auto-Generate d Referral 07/04/2021 08/03/2022 1 1 [facility] Summary Purpose Family History No Family History Records FoundNo Family History Records FoundNo Family History Records Found No data available for this section No Family History Records Found No data available for this section No data available for this section No data available for this section No data available for this section No data available for this section No data available for this section No data available for this section No data available for this section No data available for this section No data available for this section No Family History Records Found No data available for this section No data available for this section No [...] ized section and content) DATE CREATED AUTHOR 11/27/2018 [facility] DATE CREATED AUTHOR AUTHOR'S ORGANIZ ATION 09/08/2022 [facility] DATE CREATED AUTHOR AUTHOR'S ORGANIZ ATION [facility] DATE CREATED AUTHOR AUTHOR'S ORGANIZ ATION 09/01/2023 [facility] DATE CREATED AUTHOR AUTHOR'S ORGANIZ ATION 05/20/2024 [facility] DATE CREATED AUTHOR AUTHOR'S ORGANIZ ATION 06/13/2024 [facility] ([place] DATE CREATED AUTHOR AUTHOR'S ORGANIZ ATION 08/04/2024 [facility] Care Team (unrecognized sect ion and content) [employer] Relationship Specialty Start Date End Date Flori Hernandez PCP - General Family Practice 03/22/12 [employer] Relationship Specialty Start Date End Date Flori Hernandez PCP - General Family Practice 03/22/12 [employer] Relationship Specialty Start Date End Date Flori Hernandez DO PCP - General Family Medicine 03/22/12 [employer] Relationship Specialty Start Date End Date Flori Hernandez DO PCP - General Family Medicine 03/22/12 [employer] Special Staff Relationship Specialty Start Date End Date Flori Hernandez DO PCP - General Family Medicine 03/22/12 [employer] Special Staff Relationship Specialty Start Date End Date Flori Hernandez DO PCP - General Family Medicine 03/22/12 Source Comments (unrecognize d section and content) In the event this informatio n is protected by the Federal Confidentiality of Alcohol and Drug Abuse Patient Records regulations: The Federal rules restrict any use of the information to criminally investigate or prosecute any alcohol or drug abuse patient.[facility] the event this information is protected by the Federal Confidentiality of Alcohol and Drug Abuse Patient Records regulations: The Federal rules restrict any use of the information to criminally investigate or prosecute any alcohol or drug abuse patient.[facility] Hospital[facility] the event this information is protected by the Federal Confidentiality of Alcohol and Drug Abuse Patient Records regulations: The Federal rules restrict any use of the information to criminally investigate or prosecute any alcohol or drug abuse patient.[facility] the event this information is protected by the Federal Confidentiality of Alcohol and Drug Abuse Patient Records regulations: The Federal rules restrict any use of the information to criminally investigate or prosecute any alcohol or drug abuse patient.[facility] HospitalIn the event this information is protected by the Federal Confidentiality of Alcohol and Drug Abuse Patient Records regulations: The Federal rules restrict any use of the information to criminally investigate or prosecute any alcohol or drug abuse patient.[facility] HospitalIn the event this information is protected by the Federal Confidentiality of Alcohol and Drug Abuse Patient Records regulations: The Federal rules restrict any use of the information to criminally investigate or prosecute any alcohol or drug abuse patient.[facility] HospitalIn the event this information is protected by the Federal Confidentiality of Alcohol and Drug Abuse Patient Records regulations: The Federal rules restrict any use of the information to criminally investigate or prosecute any alcohol or drug abuse patient.[facility] HospitalIn the event this information is protected by the Federal Confidentiality of Alcohol and Drug Abuse Patient Records regulations: The Federal rules restrict any use of the information to criminally investigate or prosecute any alcohol or drug abuse patient.[facility] Reason for Visit (unrecogniz ed section and content) Reason Comments Sore Throat Runny nose, cough, H A, fever x 3 days Reason Comments [facility] COVID Outreach Reason Comments Neck Pain Neck spasms, causing CLOUD x 2 weeks Reason Comments Vomiting Vomiting x 1 day Reason Comments Vomiting Neck and shoulder pa in x12 hours Reason Comments Suture Removal X 2 in upper lip, pl aced at [facility] on 05/11 Care Team (unrecognized sect ion and content) Care Team Personnel Name: Shannan Gould Clerk [place] PT Position: P3 Scheduling - Project Management Consultant Advanced Member Role: Other Name: RASHEED THAPA Position: P4 Advanced Practice Nurse Med Service: Active Provider Member Role: Primary Care Physician Address: Address: [address] [place] [address]- Care Team Related Persons Name: JAIRO SIMMOSN Care Team Personnel Name: Shannan Gould Clerk [place] PT Position: P3 Scheduling - Project Management Consultant Advanced Member Role: Other Name: RASHEED THAPA Position: P4 Advanced Practice Nurse Med Service: Active Provider Member Role: Primary Care Physician Address: Address: [address] [place] [address] Care Team Related Persons Name: JAIRO SIMMONS Care Team Personnel Name: Shannan Gould Clerk [place] PT Position: P3 Scheduling - Project Management Consultant Advanced Member Role: Other Name: RASHEED THAPA Position: P4 Advanced Practice Nurse Med Service: Active Provider Member Role: Primary Care Physician Address: Address: [address] [place] [address] Care Team Related Persons Name: JAIRO SIMMONS Care Team Personnel Name: Shannan Gould Clerk [place] PT Position: P3 Scheduling - Project Management Consultant Advanced Member Role: Other Name: RASHEED THAPA Position: P4 Advanced Practice Nurse Member Role: Primary Care Physician Address: Address: [address] [place] [address] [place] [address]- Name: EM Browne Position: AO RN Member Role: ED RN Name: ERIBERTO CHRISTINE MD Position: ED Physician Member Role: Attending Physician Address: Address: [facility] [address] [place] [address]- Care Team Related Persons Name: JAIRO SIMMONS (unrecognized sect ion and content) No Status [...] BE BASED ON THE PRIMARY CLINICAL RECORDS. [facility] [employer] provides no warranty or guarantee of the accuracy or completeness of information in this document.
== END 2024-08-04 19:47 | disposition home or self-care (01) ==
PROVIDERS: Emergency Provider Emergency Medicine; PCP Preventive Medicine Occupational Medicine; Visit Provider Emergency Medicine
DX: S80.01XA Contusion of right knee, initial encounter (principal); S80.211A Abrasion, right knee, initial encounter; W19.XXXA Unspecified fall, initial encounter; J45.909 Unspecified asthma, uncomplicated; F17.210 Nicotine dependence, cigarettes, uncomplicated
CPT/HCPCS: 73564; 99282

== ENCOUNTER 2024-10-09 12:01 | Emergency (ER) | payer MEDICAID, SELFPAY ==
[2024-10-09 12:02] VITALS: BP 115/90; PULSE 120; RESP 18; TEMP 37.1; O2SAT 98; BMI 25.9
--- NOTE | 2024-10-09 12:36 | EKG12_ITS ---
Test Reason : PALPITATIONS Blood Pressure : */* mmHG Vent. Rate : 100 BPM Atrial Rate : 100 BPM P-R Int : 120 ms QRS Dur : 76 ms QT Int : 330 ms P-R-T Axes : 50 65 70 degrees QTcB Int : 425 ms Normal sinus rhythm Normal ECG Confirmed by DAJUAN LEON, JOURDAN ([id number]), video news editor BRADELY CAMPBELL ([id number]) on 10/11/2024 6:25:15 AM Referred By: YOHANA Confirmed By: JOURDAN GRAFF MD
--- NOTE | 2024-10-09 12:36 | RAD_ITS ---
INDICATION: chest pain EXAMINATION/TECHNIQUE: X-RAY - XR Chest 1 View COMPARISON: None. FINDINGS: The lungs are clear. The cardiomediastinal silhouette is unremarkable. No pleural effusion or pneumothorax. No acute osseous abnormalities. RAD/Chest 1 View (Portable) IMPRESSION: No acute radiographic abnormalities. Electronically Signed: Trevin Reza MD at 14:32 EST ,
[2024-10-09 12:56] LABS: Absolute Lymphocyte Count 3.83 X10^3/uL (0.83-4.51); Absolute Neutrophil Count 5.5 X10^3/uL (2.0-7.7); Basophil# 0.11 X10^3/uL; Basophil% 1.1 % (0-1); Eosinophil# 0.17 X10^3/uL; Eosinophils% 1.7 % (0-5); Hematocrit 45.6 % (37-47); Hemoglobin 14.7 g/dL (12.0-15.0); Lymphocyte # 3.83 X10^3/ul (0.83-4.51); Lymphocyte % 37.2 % (19-41); Mean Corp Hgb Conc 32.2 g/dL (32-36); Mean Corpuscular Hgb 29.5 pg (27.0-32.0); Mean Corpuscular Volume 91.6 fL (81-99); Mean Platelet Vol. 9.4 fl (6.2-12.0); Monocyte# 0.64 X10^3/uL; Monocyte% 6.2 % (0-10); NRBC Flagged by Analyzer 0 % (0-5); Neutrophil # 5.45 X10^3/uL (2.7-7.7); Neutrophil % 52.9 % (47-70); Platelet Count 299 K/mm3 (150-450); RBC Distribution Width CV 14.3 % (11.6-14.6); RBC Distribution Width SD 48.4 fl (35.1-43.9); Red Blood Count 4.98 M/mm3 (4.2-5.4); White Blood Count 10.3 K/mm3 (4.4-11.0)
[2024-10-09 13:01] VITALS: BP 117/84; PULSE 93; RESP 17; O2SAT 95
[2024-10-09 13:17] LABS: Anion Gap 3 (5-15); BUN 9 mg/dL (7-18); BUN/Creat Ratio 11.9 RATIO (10-20); Calcium,Total 9.3 mg/dL (8.5-10.1); Chloride 105 mmol/L (98-107); Creatinine, Serum 0.75 mg/dL (0.55-1.02); EST Glomerular Filtration Rate 90 mL/min (>60); Est Glom Filt Rate - Afr Amer 109 mL/min (>60); Glucose 124 mg/dL (74-106); Potassium 4.4 mmol/L (3.5-5.1); Sodium Level 142 mmol/L (136-145); Troponin-I HS (w/2H Reflex) < 3 pg/mL (3.0-54.0)
--- NOTE | 2024-10-09 13:49 | EX.ED.DYSGE1 ---
HPI History of Present Illness Chief Complaint: Palpitations Informant: patient Onset/Context/Timing Onset: Today Context: Sudden Onset Timing: Intermittent Quality: Racing Location: Chest Worsened by: Nothing Relieved by: Nothing Narrative Narrative: Patient notes with palpitations that began today. Patient states they are intermittent. Patient states it feels like her heart is racing. Patient states she checked her pulse at home and it was 122. Patient states nothing makes it worse and nothing makes it better. Patient denies any chest pain. Patient denies any shortness of breath or cough. Patient denies any nausea or vomiting. Patient denies any fevers or chills. [facility] Medical History History of skin cancer History of pneumonia History of pancreatitis History of cardiac murmur History of heart disease History of anemia MISBAH (generalized anxiety disorder) Pancreatitis Tachycardia Bipolar 1 disorder Concussion Headache History of ovarian cyst Arthritis Acute maxillary sinusitis, unspecified Bladder spasms Sinusitis Back pain Limb weakness Asthma Knee pain Chest pain Migraine Stomach ulcer Home Medications ?Medication ?Instructions ?Recorded ?Last Taken ?Type metoprolol succinate 25 mg capsule 25 mg PO DAILY 11/27/22 Unknown History sprinkle, ext. release 24 hr (Kapspargo Sprinkle) ibuprofen 600 mg tablet 600 mg PO Q6H PRN PRN pain #20 05/23/24 Unknown Rx TABLETS lamotrigine 200 mg tablet 200 mg PO BID bipolar #180 tabs 08/30/24 Unknown Rx (Lamictal) aripiprazole 5 mg tablet (Abilify) 5 mg PO DAILY #90 tabs 09/04/24 Unknown Rx buspirone 15 mg tablet 15 mg PO TID #90 tabs 09/19/24 Unknown Rx mirtazapine 7.5 mg tablet 7.5 mg PO QHS #30 tabs 09/19/24 Unknown Rx clonazepam 0.5 mg tablet 0.25 mg (1/2 x 0.5 mg) PO BID #7 10/04/24 Unknown Rx tabs Allergy/AdvReac Type Severity Reaction Status Date / Time adhesive Allergy Rash Verified 10/09/24 12:02 amoxicillin Allergy Swelling Verified 10/09/24 12:02 erythromycin base Allergy Hives Verified 10/09/24 12:02 (Erythromycin Base) estradiol Allergy Anaphylaxis Verified 10/09/24 12:02 Penicillins (PCN) Allergy Anaphylaxis Verified 10/09/24 12:02 acetaminophen (From Tylenol) AdvReac Vomiting Verified 10/09/24 12:02 ferrous sulfate AdvReac Constipatio Verified 10/09/24 12:02 n Family History Mother Depression Bipolar 1 disorder Anxiety Other Alcoholism Breast cancer Cancer Hypertension Mental disorder Myocardial infarction Osteoporosis Suicide attempt Surgical History History of back surgery History of placement of ear tubes History of nasal surgery Status post left breast lumpectomy Hx laparoscopic cholecystectomy History of ovarian cystectomy History of appendectomy History of adenoidectomy Social History Smoking Status: Current every day smoker tobacco type: cigarettes alcohol intake: never substance use type: does not use what type of physical activity do you participate in: walking frequency: 1-2 times per week additional social history: denies vaping, denies marijuana use, denies edibles, denies aspirin use ibuprofen as needed ROS ROS ED Constitutional Constitutional ED: Denies chills or fever(s) Eyes Eyes: Denies blurry vision or change in vision ENT ENT ED: Denies rhinorrhea or sore throat Cardiovascular Cardiovascular: Reports palpitations; Denies chest pain Respiratory/Chest Respiratory/Chest: Denies cough or dyspnea Gastrointestinal Gastrointestinal: Denies nausea or vomiting Genitourinary Genitourinary ED: Denies dysuria or hematuria Musculoskeletal Musculoskeletal: Reports back pain; Denies neck pain Integumentary Denies abscess or rash Neurologic Neurologic: Denies headache(s) or weakness Allergic/Immunologic Allergic/Immunologic ED: Denies mouth swelling or urticaria EXAM Physical Exam Const Vital Signs: 10/09/24 12:02 10/09/24 12:58 10/09/24 13:01 Temperature 98.7 F Temperature Source Oral Pulse Rate 120 H 93 Respiratory Rate 18 17 Blood Pressure 115/90 H 117/84 H Blood Pressure Mean 98 95 Pulse Ox 98 95 Oxygen Delivery Method Room Air Room Air 10/09/24 14:00 Temperature Temperature Source Pulse Rate 96 Respiratory Rate 17 Blood Pressure Blood Pressure Mean Pulse Ox 99 Oxygen Delivery Method Positive well nourished and well developed General Appearance ED: well developed and NAD HEENT Reports moist mucous membranes Neck supple and no JVD Chest Wall palpation of chest normal Resp normal respiratory effort and clear to auscultation bilaterally Cardio regular rhythm Rate: tachycardic GI non-tender and non-distended Palpation: soft Extremity normal to inspection General Extremety ED: Negative for edema or tenderness General Extremity: Negative for edema Neuro oriented x3, CN's II-XII intact bilaterally and no sensory deficits noted Sensorium / Orientation: alert Motor Exam: strength 5/5 throughout Psych mental status grossly normal MDM MDM MDM Narrative Medical decision making narrative: Differential diagnosis includes cardiac dysrhythmia, cardiac ischemia, electrolyte abnormality, pneumonia, pneumothorax, and anxiety. EKG will be obtained to assess for cardiac dysrhythmia and cardiac ischemia. Chest x-ray will be obtained to assess for pneumonia and pneumothorax. CBC will be obtained to assess for leukocytosis and anemia. Basic metabolic profile will be obtained to assess for electrolyte abnormality and renal function. High-sensitivity troponin will be obtained to assess for cardiac ischemia. 2-hour repeat high-sensitivity troponin will be obtained to assess for ongoing cardiac ischemia. Lab Data Attestation: I reviewed the patient's lab results. Lab results narrative: CBC was reviewed and was within normal limits. Basic metabolic profile was reviewed and was within normal limits. High-sensitivity troponin was reviewed and was less than 3. 2-hour repeat high-sensitivity troponin was reviewed and was less than 3. Labs: Laboratory Results - last 24 hr 10/09/24 10/09/24 12:50 14:50 WBC 10.3 RBC 4.98 Hgb 14.7 Hct 45.6 MCV 91.6 MCH 29.5 MCHC 32.2 RDW Std Deviation 48.4 H RDW Coeff of David 14.3 Plt Count 299 MPV 9.4 Immature Gran % (Auto) 0.900 Neut % (Auto) 52.9 Lymph % (Auto) 37.2 [place] % (Auto) 6.2 Eos % (Auto) 1.7 Baso % (Auto) 1.1 H Absolute Neuts (auto) 5.5 Absolute Lymphs (auto) 3.83 Nucleated RBC % 0 Sodium 142 Potassium 4.4 Chloride 105 Carbon Dioxide 33.0 H Anion Gap 3 L BUN 9 Creatinine 0.75 Estim Creat Clear Calc 100.80 Est GFR (MDRD) Af Amer 109 Est GFR (MDRD) Non-Af 90 BUN/Creatinine Ratio 11.9 Glucose 124 H Calcium 9.3 Troponin I High Sens < 3 L < 3 L Radiography Chest X-Ray - ED: 1 View, Read by ED Physician, Read by Radiologist and No Acute Disease Diagnostic Testing: Clinical Impression(s) from Imaging Studies Chest X-Ray 10/09/24 12:36 IMPRESSION: No acute radiographic abnormalities. Electronically Signed: Trevin Reza MD at 14:32 EST , Portable 1 view chest x-ray was obtained. On my independent interpretation, lung somers are clear. There is normal cardiac silhouette. Bony thorax is normal. There is no acute process noted. Radiologist also interpreted the x-ray and agrees. EKG Initial EKG: Attestation: I personally reviewed and interpreted this EKG as follows: Interpretation: Sinus Rhythm (100) and No Acute Injury Pattern Comments: EKG was obtained. On my independent interpretation, it showed a normal sinus rhythm with a rate of 100. SD interval, QRS interval, and QTc intervals were all normal. [place] was normal. There are no acute ST or T wave changes. Prior EKG tracings: available for review Prior: Unchanged (08/30/2022) Treatment and Re-Evaluation :: Patient was given IV fluids. Patient's heart rate improved with this. Patient was advised of her findings. Patient has a HEART score of 2. Patient was advised that this is low risk for acute cardiac event. Discharge Plan Triage Chief Complaint: Palpitations ED Provider: Jose Carlos Kuhn Dx/Rx/DC Orders Clinical Impression: Heart palpitations, Tobacco user Instructions: ED Palpitations Prescriptions: No Action mirtazapine 7.5 mg tablet 7.5 mg PO QHS Qty: 30 1RF buspirone 15 mg tablet 15 mg PO TID Qty: 90 1RF Kapspargo Sprinkle 25 mg capsule,sprinkle,ER 24hr 25 mg PO DAILY Patient Comments: TAKE 1 CAPSULE BY MOUTH EVERY DAY ibuprofen 600 mg tablet 600 mg PO Q6H PRN PRN (Reason: pain) Qty: 20 0RF lamotrigine [Lamictal] 200 mg tablet 200 mg PO BID Qty: 180 1RF Rx Instructions: 200 in morning, 200 at night aripiprazole [Abilify] 5 mg tablet 5 mg PO DAILY Qty: 90 1RF clonazepam 0.5 mg tablet 0.25 mg PO BID Qty: 7 0RF Primary Care Provider: Blaise Wetzel Referrals: Blaise Wetzel DO [Primary Care Provider] - 5-7 Days Print Language: Lebanese Disposition Disposition: Home, Self Care
[2024-10-09 14:00] VITALS: PULSE 96; RESP 17; O2SAT 99
[2024-10-09] MEDS: 0.9% Normal Saline (1000mL) 1,000 ML 1000 ML IV (14:16)
[2024-10-09 14:53] LABS: Reflex Troponin-HS? (from REC) Y
[2024-10-09 15:20] LABS: Troponin-I HS < 3 pg/mL (3.0-54.0)
[2024-10-09 15:36] VITALS: BP 140/78; PULSE 64; RESP 18; TEMP 37.1; O2SAT 99
== END 2024-10-09 15:37 | disposition home or self-care (01) ==
PROVIDERS: Emergency Provider Emergency Medicine; PCP Preventive Medicine Occupational Medicine; Visit Provider Emergency Medicine
DX: R00.2 Palpitations (principal); J45.909 Unspecified asthma, uncomplicated; F17.210 Nicotine dependence, cigarettes, uncomplicated
CPT/HCPCS: 71045; 80048; 84484; 85025; 93005; 96360; 99284

== ENCOUNTER 2024-12-25 09:28 | Emergency (ER) | payer MEDICAID, SELFPAY ==
[2024-12-25 09:29] VITALS: BP 118/82; PULSE 93; RESP 18; TEMP 37.2; O2SAT 98; BMI 25.0
--- NOTE | 2024-12-25 09:42 | EX.ED.DYSGE1 ---
HPI History of Present Illness Chief Complaint: Anxiety Narrative Narrative: Chief complaint and HPI: Anxiety. 39-year-old female with past medical history of anxiety, bipolar disorder presents for evaluation of anxiety and panic attacks. Patient states that she has had increased anxiety and been under a lot of stress as her daughter was just placed in an inpatient psychiatric unit for suicidal ideation. Since the placement she states she has been having increased anxiety including panic attacks x 2. Patient takes hydroxyzine for her anxiety. She feels that this is not helping. She denies any suicidal or homicidal ideations. Denies any visual or auditory hallucinations. Denies any other complaints or symptoms. Review of systems: See HPI Medications: As listed on the chart Allergies: As listed on the chart PFSH: Per chart Vital signs: As listed on the chart. Reviewed. Physical exam: Gen: A&O x3, NAD but anxious Head: Normocephalic, atraumatic Eyes: No sclera icterus, conjunctiva clear, PERRL, EOMI ENT: Moist mucous membranes Neck: Trachea midline, No JVD CV: RRR, no murmurs, no peripheral edema Resp: Lungs CTA BL, no w/r/c GI: Abd soft, non-distended, non-tender, no r/r/g Musc: Full ROM, no deformity Skin: Warm, dry Neuro: Alert, oriented, grossly intact, sensation intact Psych: Cooperative, appropriate mood and affect [facility] Medical History History of skin cancer History of pneumonia History of pancreatitis History of cardiac murmur History of heart disease History of anemia MISBAH (generalized anxiety disorder) Pancreatitis Tachycardia Bipolar 1 disorder Concussion Headache History of ovarian cyst Arthritis Acute maxillary sinusitis, unspecified Bladder spasms Sinusitis Back pain Limb weakness Asthma Knee pain Chest pain Migraine Stomach ulcer Home Medications ?Medication ?Instructions ?Recorded ?Last Taken ?Type metoprolol succinate 25 mg capsule 25 mg PO DAILY 11/27/22 Unknown History sprinkle, ext. release 24 hr (Kapspargo Sprinkle) ibuprofen 600 mg tablet 600 mg PO Q6H PRN PRN pain #20 05/23/24 Unknown Rx TABLETS baclofen 10 mg tablet 10 mg PO BID #20 tabs 11/16/24 Unknown Rx clonazepam 0.5 mg tablet 0.25 mg (1/2 x 0.5 mg) PO Q OTHER 12/06/24 Unknown Rx DAY #4 tabs aripiprazole 2 mg tablet 2 mg PO QHS #30 tabs 12/13/24 Unknown Rx buspirone 15 mg tablet 15 mg PO TID #90 tabs 12/13/24 Unknown Rx escitalopram oxalate 10 mg tablet 10 mg PO QDAY #30 tabs 12/13/24 Unknown Rx hydroxyzine HCl 25 mg tablet 25 mg PO TID PRN anxiety #90 tabs 12/13/24 Unknown Rx lamotrigine 200 mg tablet 200 mg PO BID bipolar #180 tabs 12/13/24 Unknown Rx (Lamictal) Allergy/AdvReac Type Severity Reaction Status Date / Time adhesive Allergy Rash Verified 12/25/24 09:29 amoxicillin Allergy Swelling Verified 12/25/24 09:29 erythromycin base Allergy Hives Verified 12/25/24 09:29 (Erythromycin Base) estradiol Allergy Anaphylaxis Verified 12/25/24 09:29 Penicillins (PCN) Allergy Anaphylaxis Verified 12/25/24 09:29 acetaminophen (From Tylenol) AdvReac Vomiting Verified 12/25/24 09:29 ferrous sulfate AdvReac Constipatio Verified 12/25/24 09:29 n Family History Mother Depression Bipolar 1 disorder Anxiety Other Alcoholism Breast cancer Cancer Hypertension Mental disorder Myocardial infarction Osteoporosis Suicide attempt Surgical History History of back surgery History of placement of ear tubes History of nasal surgery Status post left breast lumpectomy Hx laparoscopic cholecystectomy History of ovarian cystectomy History of appendectomy History of adenoidectomy Social History Smoking Status: Current every day smoker tobacco type: cigarettes alcohol intake: never substance use type: does not use what type of physical activity do you participate in: walking frequency: 1-2 times per week additional social history: denies vaping, denies marijuana use, denies edibles, denies aspirin use ibuprofen as needed EXAM Physical Exam Const Vital Signs: 12/25/24 09:29 12/25/24 11:13 Temperature 98.9 F 97.8 F Temperature Source Oral Pulse Rate 93 64 Respiratory Rate 18 18 Blood Pressure 118/82 H 126/78 H Blood Pressure Mean 94 94 Pulse Ox 98 99 Oxygen Delivery Method Room Air MDM MDM MDM Narrative Medical decision making narrative: 39-year-old female with past medical history of anxiety, bipolar disorder presents for evaluation of anxiety and panic attacks. Patient has been taking her hydroxyzine with little relief. Differential diagnosis includes but is not limited to anxiety, panic disorder. Patient offered p.o. versus IM Ativan. She elected for IM. This will be given. Patient will be monitored. I do not think any laboratory or further workup is needed. Reevaluation after Ativan, patient states her anxiety has improved. She is more calm. Patient has a ride home with her . Patient is stable to discharge home. Follow-up with PCP. Return precautions explained. Impression: 1. Anxiety 2. Panic attacks Discharge Plan Triage Chief Complaint: Anxiety ED Provider: Ulices Rose Dx/Rx/DC Orders Clinical Impression: Anxiety Instructions: Your Body's Response to Anxiety, Anxiety Disorders Tx, Understanding Anxiety Disorders, Anxiety Disorders Meds Prescriptions: No Action aripiprazole 2 mg tablet 2 mg PO QHS Qty: 30 1RF escitalopram oxalate 10 mg tablet 10 mg PO QDAY Qty: 30 1RF lamotrigine [Lamictal] 200 mg tablet 200 mg PO BID Qty: 180 1RF Rx Instructions: 200 in morning, 200 at night hydroxyzine HCl 25 mg tablet 25 mg PO TID PRN (Reason: anxiety) Qty: 90 2RF buspirone 15 mg tablet 15 mg PO TID Qty: 90 1RF baclofen 10 mg tablet 10 mg PO BID Qty: 20 0RF Kapspargo Sprinkle 25 mg capsule,sprinkle,ER 24hr 25 mg PO DAILY Patient Comments: TAKE 1 CAPSULE BY MOUTH EVERY DAY ibuprofen 600 mg tablet 600 mg PO Q6H PRN PRN (Reason: pain) Qty: 20 0RF clonazepam 0.5 mg tablet 0.25 mg PO Q OTHER DAY Qty: 4 0RF Primary Care Provider: Blaise Wetzel Referrals: Blaise Wetzel DO [Primary Care Provider] - 3-5 Days Activity Restrictions/Additional Instructions: Return back to the ED if symptoms change or worsen. Follow-up with your PCP. Print Language: Panamanian Disposition Disposition: Home, Self Care Discharge Date/Time: 12/25/24 11:14
[2024-12-25] MEDS: Lorazepam 2 MG/ML WCH Syringe 1 MG IM (10:09)
[2024-12-25 11:13] VITALS: BP 126/78; PULSE 64; RESP 18; TEMP 36.6; O2SAT 99
== END 2024-12-25 11:14 | disposition home or self-care (01) ==
PROVIDERS: Emergency Provider Surgery; PCP Preventive Medicine Occupational Medicine; Visit Provider Surgery
DX: F41.0 Panic disorder [episodic paroxysmal anxiety] (principal); F31.9 Bipolar disorder, unspecified; J45.909 Unspecified asthma, uncomplicated; F17.210 Nicotine dependence, cigarettes, uncomplicated
CPT/HCPCS: 96372; 99282; A4216

== ENCOUNTER 2024-12-27 21:46 | Emergency (ER) | payer MEDICAID, SELFPAY ==
[2024-12-27 21:47] VITALS: BP 111/78; PULSE 83; RESP 16; TEMP 36.7; O2SAT 100; BMI 25.7
--- NOTE | 2024-12-27 22:24 | EX.ED.DYSGE1 ---
HPI History of Present Illness Chief Complaint: Anxiety Narrative Narrative: Chief complaint and HPI: Anxiety. 39-year-old female with past medical history of anxiety, bipolar disorder presents for evaluation of anxiety and panic attack. Patient was just seen in our emergency yesterday for same complaint. Patient endorses increased anxiety and increased stress as her daughter was just released from an inpatient psychiatric unit for suicidal ideation. She states crisis came to the house today and patient was told that she has to remove multiple things from the house including knives and razors. She states that this caused her to go into a panic attack. Patient states she did call her PCP to be seen to have her medications changed however no appointment was made as she could not get off work. She does take hydroxyzine and buspirone for her anxiety. Patient states her panic attack has since resolved. She denies any suicidal or homicidal ideations. Denies any visual or auditory hallucinations. Denies any other complaints or symptoms. Review of systems: See HPI Medications: As listed on the chart Allergies: As listed on the chart PFSH: Per chart Vital signs: As listed on the chart. Reviewed. Physical exam: Gen: A&O x3, NAD Head: Normocephalic, atraumatic Eyes: No sclera icterus, conjunctiva clear, PERRL, EOMI ENT: Moist mucous membranes Neck: Trachea midline, No JVD CV: RRR, no murmurs, no peripheral edema Resp: Lungs CTA BL, no w/r/c GI: Abd soft, non-distended, non-tender, no r/r/g Musc: Full ROM, no deformity Skin: Warm, dry Neuro: Alert, oriented, grossly intact, sensation intact Psych: Cooperative, appropriate mood and affect, not actively in a panic attack, anxiety currently under control [facility] Medical History History of skin cancer History of pneumonia History of pancreatitis History of cardiac murmur History of heart disease History of anemia MISBAH (generalized anxiety disorder) Pancreatitis Tachycardia Bipolar 1 disorder Concussion Headache History of ovarian cyst Arthritis Acute maxillary sinusitis, unspecified Bladder spasms Sinusitis Back pain Limb weakness Asthma Knee pain Chest pain Migraine Stomach ulcer Home Medications ?Medication ?Instructions ?Recorded ?Last Taken ?Type metoprolol succinate 25 mg capsule 25 mg PO DAILY 11/27/22 Unknown History sprinkle, ext. release 24 hr (Kapspargo Sprinkle) ibuprofen 600 mg tablet 600 mg PO Q6H PRN PRN pain #20 05/23/24 Unknown Rx TABLETS baclofen 10 mg tablet 10 mg PO BID #20 tabs 11/16/24 Unknown Rx clonazepam 0.5 mg tablet 0.25 mg (1/2 x 0.5 mg) PO Q OTHER 12/06/24 Unknown Rx DAY #4 tabs aripiprazole 2 mg tablet 2 mg PO QHS #30 tabs 12/13/24 Unknown Rx buspirone 15 mg tablet 15 mg PO TID #90 tabs 12/13/24 Unknown Rx escitalopram oxalate 10 mg tablet 10 mg PO QDAY #30 tabs 12/13/24 Unknown Rx hydroxyzine HCl 25 mg tablet 25 mg PO TID PRN anxiety #90 tabs 12/13/24 Unknown Rx lamotrigine 200 mg tablet 200 mg PO BID bipolar #180 tabs 12/13/24 Unknown Rx (Lamictal) Allergy/AdvReac Type Severity Reaction Status Date / Time adhesive Allergy Rash Verified 12/27/24 21:48 amoxicillin Allergy Swelling Verified 12/27/24 21:48 erythromycin base Allergy Hives Verified 12/27/24 21:48 (Erythromycin Base) estradiol Allergy Anaphylaxis Verified 12/27/24 21:48 Penicillins (PCN) Allergy Anaphylaxis Verified 12/27/24 21:48 acetaminophen (From Tylenol) AdvReac Vomiting Verified 12/27/24 21:48 ferrous sulfate AdvReac Constipatio Verified 12/27/24 21:48 n Family History Mother Depression Bipolar 1 disorder Anxiety Other Alcoholism Breast cancer Cancer Hypertension Mental disorder Myocardial infarction Osteoporosis Suicide attempt Surgical History History of back surgery History of placement of ear tubes History of nasal surgery Status post left breast lumpectomy Hx laparoscopic cholecystectomy History of ovarian cystectomy History of appendectomy History of adenoidectomy Social History Smoking Status: Current every day smoker tobacco type: cigarettes and e-cigarettes alcohol intake: never substance use type: does not use what type of physical activity do you participate in: walking frequency: 1-2 times per week additional social history: denies vaping, denies marijuana use, denies edibles, denies aspirin use ibuprofen as needed EXAM Physical Exam Const Vital Signs: 12/27/24 21:47 Temperature 98.1 F Temperature Source Temporal Pulse Rate 83 Respiratory Rate 16 Blood Pressure 111/78 Blood Pressure Mean 89 Pulse Ox 100 Oxygen Delivery Method Room Air MDM MDM MDM Narrative Medical decision making narrative: 39-year-old female with past medical history of anxiety, bipolar disorder presents for evaluation of anxiety and panic attack. Patient states she had a panic attack earlier today but that it is since resolved. Her anxiety is currently under control. Patient was offered Ativan however she does not have a ride home therefore no Ativan will be given. Patient was explained that and confirmed understanding. Given that her anxiety is currently under control and that she is not in a panic attack patient is stable to discharge home. I will give her a short prescription of Ativan as needed for increased anxiety/panic attack at home. She was reeducated that she needs to call her primary care physician to have changes in her antianxiety medication. She confirmed understanding. She was offered social work for resources outpatient but she declined this. I do not think any laboratory or further workup is needed. Patient will be discharged home. Return precautions explained. Impression: 1. Anxiety 2. Panic attack Discharge Plan Triage Chief Complaint: Anxiety ED Provider: Ulices Rose Dx/Rx/DC Orders Prescriptions: No Action aripiprazole 2 mg tablet 2 mg PO QHS Qty: 30 1RF escitalopram oxalate 10 mg tablet 10 mg PO QDAY Qty: 30 1RF lamotrigine [Lamictal] 200 mg tablet 200 mg PO BID Qty: 180 1RF Rx Instructions: 200 in morning, 200 at night hydroxyzine HCl 25 mg tablet 25 mg PO TID PRN (Reason: anxiety) Qty: 90 2RF buspirone 15 mg tablet 15 mg PO TID Qty: 90 1RF baclofen 10 mg tablet 10 mg PO BID Qty: 20 0RF Kapspargo Sprinkle 25 mg capsule,sprinkle,ER 24hr 25 mg PO DAILY Patient Comments: TAKE 1 CAPSULE BY MOUTH EVERY DAY ibuprofen 600 mg tablet 600 mg PO Q6H PRN PRN (Reason: pain) Qty: 20 0RF clonazepam 0.5 mg tablet 0.25 mg PO Q OTHER DAY Qty: 4 0RF Primary Care Provider: Blaise Wetzel Referrals: Blaise Wetzel DO [Primary Care Provider] - Print Language: Maltese
[2024-12-27 22:37] VITALS: BP 111/78; PULSE 83; RESP 16; TEMP 36.7; O2SAT 100
== END 2024-12-27 22:44 | disposition home or self-care (01) ==
PROVIDERS: Emergency Provider Surgery; PCP Preventive Medicine Occupational Medicine; Visit Provider Surgery
DX: F41.0 Panic disorder [episodic paroxysmal anxiety] (principal); F31.9 Bipolar disorder, unspecified; Z79.899 Other long term (current) drug therapy; Z63.8 Other specified problems related to primary support group; J45.909 Unspecified asthma, uncomplicated; F17.210 Nicotine dependence, cigarettes, uncomplicated; F17.290 Nicotine dependence, other tobacco product, uncomplicated
CPT/HCPCS: 99282

== ENCOUNTER 2025-01-04 06:25 | Emergency (ER) | payer MEDICAID, SELFPAY ==
[2025-01-04 06:29] VITALS: BP 118/75; PULSE 81; RESP 16; TEMP 36.8; O2SAT 97; BMI 26.1
--- NOTE | 2025-01-04 07:12 | EX.ED.DYSGE1 ---
HPI History of Present Illness Chief Complaint: Med Refill Informant: patient Narrative Narrative: 39-year-old female presenting to the emergency room with anxiety. Patient states she has a history of bipolar disorder as well as generalized anxiety disorder. She states that she currently sees Caty Rogers with [facility] as well as her primary care doctor Dr. Taylor. She states that not quite 2 weeks ago her daughter was admitted to psychiatric facility with suicidal ideation with plan. She states that her daughter is staying with a friend this weekend and probably with her grandparents. She states that she has been in the emergency room now 3 times over the past week. She states that she was taking Klonopin but her psychiatrist took her off of that and has been taking hydroxyzine and buspirone. She states that that was not helping and she came to the emergency room and got Ativan and later followed up with her doctor she states 2 days ago and was represcribed Klonopin. She states that it is not working. She states that she is not sleeping well at night because she is afraid that her daughter may do something and she will be there to help her. She states that she had an appointment to see psychiatry on Monday but canceled the appointment. She does not feel suicidal or homicidal. [facility] Medical History History of skin cancer History of pneumonia History of pancreatitis History of cardiac murmur History of heart disease History of anemia MISBAH (generalized anxiety disorder) Pancreatitis Tachycardia Bipolar 1 disorder Concussion Headache History of ovarian cyst Arthritis Acute maxillary sinusitis, unspecified Bladder spasms Sinusitis Back pain Limb weakness Asthma Knee pain Chest pain Migraine Stomach ulcer Home Medications ?Medication ?Instructions ?Recorded ?Last Taken ?Type metoprolol succinate 25 mg capsule 25 mg PO DAILY 11/27/22 Unknown History sprinkle, ext. release 24 hr (Kapspargo Sprinkle) ibuprofen 600 mg tablet 600 mg PO Q6H PRN PRN pain #20 05/23/24 Unknown Rx TABLETS aripiprazole 2 mg tablet 2 mg PO QHS #30 tabs 12/13/24 Unknown Rx buspirone 15 mg tablet 15 mg PO TID #90 tabs 12/13/24 Unknown Rx escitalopram oxalate 10 mg tablet 10 mg PO QDAY #30 tabs 12/13/24 Unknown Rx hydroxyzine HCl 25 mg tablet 25 mg PO TID PRN anxiety #90 tabs 12/13/24 Unknown Rx lamotrigine 200 mg tablet 200 mg PO BID bipolar #180 tabs 12/13/24 Unknown Rx (Lamictal) baclofen 10 mg tablet 10 mg PO BID PRN pain 01/04/25 Unknown History clonazepam 1 mg tablet 1 mg PO TID 01/04/25 01/04/25 02:00 History Allergy/AdvReac Type Severity Reaction Status Date / Time adhesive Allergy Rash Verified 01/04/25 06:26 amoxicillin Allergy Swelling Verified 01/04/25 06:26 erythromycin base Allergy Hives Verified 01/04/25 06:26 (Erythromycin Base) estradiol Allergy Anaphylaxis Verified 01/04/25 06:26 Penicillins (PCN) Allergy Anaphylaxis Verified 01/04/25 06:26 acetaminophen (From Tylenol) AdvReac Vomiting Verified 01/04/25 06:26 ferrous sulfate AdvReac Constipatio Verified 01/04/25 06:26 n Family History Mother Depression Bipolar 1 disorder Anxiety Other Alcoholism Breast cancer Cancer Hypertension Mental disorder Myocardial infarction Osteoporosis Suicide attempt Surgical History History of back surgery History of placement of ear tubes History of nasal surgery Status post left breast lumpectomy Hx laparoscopic cholecystectomy History of ovarian cystectomy History of appendectomy History of adenoidectomy Social History Smoking Status: Current every day smoker tobacco type: cigarettes and e-cigarettes alcohol intake: never substance use type: does not use what type of physical activity do you participate in: walking frequency: 1-2 times per week additional social history: denies vaping, denies marijuana use, denies edibles, denies aspirin use ibuprofen as needed ROS ROS ED ROS Narrative Insomnia Constitutional Constitutional ED: Denies chills, fever(s) or weight loss Eyes Eyes: Denies change in vision or diplopia ENT ENT ED: Denies ear pain, rhinorrhea or sore throat Cardiovascular Cardiovascular: Denies chest pain, orthopnea, palpitations or racing heartbeat Respiratory/Chest Respiratory/Chest: Denies cough, dyspnea or orthopnea Gastrointestinal Gastrointestinal: Denies abdominal pain, diarrhea, nausea or vomiting Genitourinary Genitourinary ED: Denies dysuria, hematuria or urinary frequency Musculoskeletal Musculoskeletal: Denies arthralgias or myalgias Integumentary Denies abscess or rash Neurologic Neurologic: Denies headache(s) or weakness Psychiatric Psychiatric: Reports anxiety and depression; Denies suicidal ideation or suicidal thoughts Endocrine Endocrinology: Denies polydipsia, polyphagia or polyuria Allergic/Immunologic Allergic/Immunologic ED: Denies mouth swelling, tongue swelling or urticaria EXAM Physical Exam Const Vital Signs: 01/04/25 06:29 01/04/25 06:43 Temperature 98.2 F Temperature Source Oral Pulse Rate 81 Respiratory Rate 16 Respiratory Effort Normal Non-Labored Respiratory Pattern Normal Blood Pressure 118/75 Blood Pressure Mean 89 Pulse Ox 97 Oxygen Delivery Method Room Air Positive well nourished and well developed General Appearance ED: well developed and NAD HEENT Reports normocephalic, head/scalp atraumatic and moist mucous membranes Eyes PERRL and EOMs intact bilaterally Neck no lymphadenopathy, supple and no JVD Resp normal respiratory effort and clear to auscultation bilaterally Cardio regular rate, regular rhythm and no murmurs GI normal to inspection, nondistended, normoactive bowel sounds and non-tender Palpation: soft Back/Spine no CVA tenderness and normal ROM Extremity normal to inspection General Extremety ED: Negative for edema General Extremity: Negative for edema Neuro oriented x3 and CN's II-XII intact bilaterally Sensorium / Orientation: alert Motor Exam: strength 5/5 throughout Psych mental status grossly normal Psych Narrative: No suicidal or homicidal ideation. Patient's appearance is grossly normal. She is not disheveled. Mood & Affect: depressed; Negative for tearful Skin no rashes or lesions noted and no wounds MDM MDM MDM Narrative Medical decision making narrative: Differential diagnosis includes but not limited to depression anxiety bipolar disorder suicidal ideation grief reaction Offered to have crisis come and speak with the patient and she declines. I offered to have our social work speak with her when she comes in the patient declines but I did say I will have our social media content manager call her. I informed her that I would be calling her psychiatrist and she states she really does not want to sit in the emergency room for hours. She is afraid that I am going to pink slip for her. I informed her that as of right now I do not have anything that I can pink slip her for. I do strongly believe that she would benefit from visiting with psychiatry and I am concerned that she has these feelings and this is not her third emergency department visit and yet she canceled her psychiatry appointment yesterday. I am going to reach out to [facility]. I do not feel prescribing her Ativan which she states would help her is necessarily the best course the emergency department needs to go today. Update 1034 hrs.: I was informed by nursing/hospice patient care secretary that the patient just called and and was wondering when the physicians change shifts. She stated that the physician (myself) that saw her did nothing for her. I strongly do not feel we should write for Ativan for this patient at this time. I feel she needs to be seeing her psychiatrist. I did update social work when they came in this morning and asked that they call the patient. History & Record Review Discussion w/independent historian: Patient Management Discussion w/another healthcare provider: tankroom worker/Case management Discharge Plan Triage Chief Complaint: Med Refill Other Complaint: Anxiety ED Provider: Hernesto Milligan Dx/Rx/DC Orders Clinical Impression: Bipolar 1 disorder, Anxiety Instructions: ED Anxiety Reaction Prescriptions: No Action aripiprazole 2 mg tablet 2 mg PO QHS Qty: 30 1RF escitalopram oxalate 10 mg tablet 10 mg PO QDAY Qty: 30 1RF lamotrigine [Lamictal] 200 mg tablet 200 mg PO BID Qty: 180 1RF Rx Instructions: 200 in morning, 200 at night hydroxyzine HCl 25 mg tablet 25 mg PO TID PRN (Reason: anxiety) Qty: 90 2RF Patient Comments: pt states it does not work buspirone 15 mg tablet 15 mg PO TID Qty: 90 1RF Kapspargo Sprinkle 25 mg capsule,sprinkle,ER 24hr 25 mg PO DAILY Patient Comments: TAKE 1 CAPSULE BY MOUTH EVERY DAY ibuprofen 600 mg tablet 600 mg PO Q6H PRN PRN (Reason: pain) Qty: 20 0RF baclofen 10 mg tablet 10 mg PO BID PRN (Reason: pain) clonazepam 1 mg tablet 1 mg PO TID Primary Care Provider: Blaise Wetzel Referrals: Blaise Wetzel DO [Primary Care Provider] - As soon as possible Iveth Rogers NP-C [Med Staff - Senior Business Development Analyst] - As soon as possible Print Language: Japanese Disposition Disposition: Home, Self Care Discharge Date/Time: 01/04/25 07:44
--- NOTE | 2025-01-04 07:17 | PCA ---
CALLED [facility] AND LEFT MESSAGE @ [id number].
== END 2025-01-04 07:44 | disposition home or self-care (01) ==
PROVIDERS: Emergency Provider Emergency Medicine; PCP Preventive Medicine Occupational Medicine; Visit Provider Emergency Medicine
DX: F41.1 Generalized anxiety disorder (principal); F31.9 Bipolar disorder, unspecified; F17.290 Nicotine dependence, other tobacco product, uncomplicated; F17.210 Nicotine dependence, cigarettes, uncomplicated; Z79.899 Other long term (current) drug therapy; J45.909 Unspecified asthma, uncomplicated
CPT/HCPCS: 99282; 99283

== ENCOUNTER 2025-01-04 18:37 | Emergency (ER) | payer MEDICAID, SELFPAY ==
[2025-01-04 18:37] VITALS: BP 115/88; PULSE 127; RESP 22; TEMP 36.8; O2SAT 98; BMI 25.9
[2025-01-04 18:53] VITALS: PULSE 89; RESP 18; O2SAT 97
--- NOTE | 2025-01-04 19:20 | EX.ED.VIS.PS ---
HPI HPI - Psych History of Present Illness Chief Complaint: Anxiety Informant: patient Onset/Context/Timing Onset: Days Context: Gradual Onset Timing: Intermittent Current Severity: Mild Maximum Severity: Moderate Narrative Narrative: 39-year-old female history of bipolar, anxiety and depression. Treated home with Klonopin 3 times a day. She has [facility]. States her daughter has recently had her own psychiatric challenges. And has made the patient more anxious. She did not think her Klonopin is working. She herself denies being suicidal. Prior similar symptoms: Yes Recent Illness/Hospitalization: No PFSH PFSH Medical History History of skin cancer History of pneumonia History of pancreatitis History of cardiac murmur History of heart disease History of anemia MISBAH (generalized anxiety disorder) Pancreatitis Tachycardia Bipolar 1 disorder Concussion Headache History of ovarian cyst Arthritis Acute maxillary sinusitis, unspecified Bladder spasms Sinusitis Back pain Limb weakness Asthma Knee pain Chest pain Migraine Stomach ulcer Home Medications ?Medication ?Instructions ?Recorded ?Last Taken ?Type metoprolol succinate 25 mg capsule 25 mg PO DAILY 11/27/22 Unknown History sprinkle, ext. release 24 hr (Kapspargo Sprinkle) ibuprofen 600 mg tablet 600 mg PO Q6H PRN PRN pain #20 05/23/24 Unknown Rx TABLETS aripiprazole 2 mg tablet 2 mg PO QHS #30 tabs 12/13/24 Unknown Rx buspirone 15 mg tablet 15 mg PO TID #90 tabs 12/13/24 Unknown Rx escitalopram oxalate 10 mg tablet 10 mg PO QDAY #30 tabs 12/13/24 Unknown Rx hydroxyzine HCl 25 mg tablet 25 mg PO TID PRN anxiety #90 tabs 12/13/24 Unknown Rx lamotrigine 200 mg tablet 200 mg PO BID bipolar #180 tabs 12/13/24 Unknown Rx (Lamictal) baclofen 10 mg tablet 10 mg PO BID PRN pain 01/04/25 Unknown History clonazepam 1 mg tablet 1 mg PO TID 01/04/25 01/04/25 02:00 History Allergy/AdvReac Type Severity Reaction Status Date / Time adhesive Allergy Rash Verified 01/04/25 06:26 amoxicillin Allergy Swelling Verified 01/04/25 06:26 erythromycin base Allergy Hives Verified 01/04/25 06:26 (Erythromycin Base) estradiol Allergy Anaphylaxis Verified 01/04/25 06:26 Penicillins (PCN) Allergy Anaphylaxis Verified 01/04/25 06:26 acetaminophen (From Tylenol) AdvReac Vomiting Verified 01/04/25 06:26 ferrous sulfate AdvReac Constipatio Verified 01/04/25 06:26 n Family History Mother Depression Bipolar 1 disorder Anxiety Other Alcoholism Breast cancer Cancer Hypertension Mental disorder Myocardial infarction Osteoporosis Suicide attempt Surgical History History of back surgery History of placement of ear tubes History of nasal surgery Status post left breast lumpectomy Hx laparoscopic cholecystectomy History of ovarian cystectomy History of appendectomy History of adenoidectomy Social History Smoking Status: Current every day smoker tobacco type: cigarettes and e-cigarettes alcohol intake: never substance use type: does not use what type of physical activity do you participate in: walking frequency: 1-2 times per week additional social history: denies vaping, denies marijuana use, denies edibles, denies aspirin use ibuprofen as needed ROS ROS ED ROS Narrative Denies recent illness. Constitutional Constitutional ED: Denies chills or fever(s) Eyes Eyes: Denies blurry vision ENT ENT ED: Denies ear pain Cardiovascular Cardiovascular: Denies chest pain Respiratory/Chest Respiratory/Chest: Denies cough or dyspnea Genitourinary Genitourinary ED: Denies dysuria Musculoskeletal Musculoskeletal: Denies arthralgias Integumentary Denies abscess Neurologic Neurologic: Denies headache(s) Psychiatric Psychiatric: Reports anxiety; Denies suicidal ideation or suicidal thoughts Endocrine Endocrinology: Denies polydipsia Hematologic/Lymphatic Hematologic/Lymphatic: Denies easy bleeding Allergic/Immunologic Allergic/Immunologic ED: Denies mouth swelling, tongue swelling or urticaria EXAM Physical Exam Narrative Exam Narrative: Well-appearing middle-aged female vital signs stable afebrile no acute distress. Sitting upright in bed. Young daughter with her. H EENT exam normal. moist mucous membranes. Pupils round reactive light. No trauma. Neck nontender. Lungs clear equal symmetrical bilateral. Heart regular rhythm rate about 90 no murmur. Chest wall and ribs are nontender. Abdomen soft nontender. Moving all 4 extremities. Nontender no edema. No signs of injury or lacerations. Back nontender. Neurologically she is awake alert answering questions following commands. Emotionally she is stable at this time. Makes eye contact. Is forthcoming with information. Const Vital Signs: 01/04/25 18:37 01/04/25 18:53 Temperature 98.2 F Temperature Source Oral Pulse Rate 127 H 89 Respiratory Rate 22 H 18 Blood Pressure 115/88 H Blood Pressure Mean 97 Pulse Ox 98 97 Oxygen Delivery Method Room Air Room Air Positive well nourished and well developed; Negative for obese, cachectic, contractures or unkempt General Appearance ED: well developed and NAD; Negative for unkempt, cachectic, contractures or pallor Nutritional Appearance: Negative for cachectic or obese HEENT normocephalic and atraumatic Eyes PERRL and EOMs intact bilaterally Neck no lymphadenopathy, supple and no JVD General: Negative for tenderness Resp normal respiratory effort and clear to auscultation bilaterally Cardio S1 normal heart sound, S2 normal heart sound and no murmurs Rate: regular rate Rhythm: regular rhythm GI non-tender, non-distended and no masses Palpation: soft; Negative for tender or guarding Back/Spine no CVA tenderness Extremity normal to inspection General Extremety ED: Negative for edema or tenderness General Extremity: Negative for edema Neuro oriented x3 and CN's II-XII intact bilaterally Sensorium / Orientation: alert, oriented to person, oriented to place and oriented to time; Negative for orientation impaired or confused Motor Exam: strength 5/5 throughout Psych mental status grossly normal, thought process normal, cooperative, affect normal, speech normal, activity/motor behavior normal, denies hallucinations, denies homicidal ideation and denies suicidal ideation Appearance: grossly normal; Negative for unkempt Attitude: calm, engaged, No paranoid, No withdrawn, No bizarre, No uncooperative, No evasive, No guarded, No belligerent, No agitated, No aggressive and No hostile Activity / Motor Behavior: appropriate eye contact Mood & Affect: euthymic mood Thought Process: normal thought process Thought Content: normal thought content Attention / Concentration: attention grossly intact Memory / Cognition: memory grossly intact Insight: insight good Judgement: judgement good Skin General Skin Exam: Negative for jaundice or pallor Lesions: no lesions Rashes: no rashes Trauma: Negative for abrasion Wounds: Negative for amputation MDM MDM MDM Narrative Medical decision making narrative: 39-year-old female history of anxiety given a dose of Ativan. To be discharged to home. Follow-up with her psychiatric team for further evaluation to determine if they want to put her on additional anxiety meds for home. She understands that I cannot write her for a long-term prescription for Ativan. Discharge Plan Triage Chief Complaint: Anxiety ED Provider: Raoul Alexander Dx/Rx/DC Orders Clinical Impression: Anxiety Instructions: ED Anxiety Reaction Prescriptions: No Action aripiprazole 2 mg tablet 2 mg PO QHS Qty: 30 1RF escitalopram oxalate 10 mg tablet 10 mg PO QDAY Qty: 30 1RF lamotrigine [Lamictal] 200 mg tablet 200 mg PO BID Qty: 180 1RF Rx Instructions: 200 in morning, 200 at night hydroxyzine HCl 25 mg tablet 25 mg PO TID PRN (Reason: anxiety) Qty: 90 2RF Patient Comments: pt states it does not work buspirone 15 mg tablet 15 mg PO TID Qty: 90 1RF Kapspargo Sprinkle 25 mg capsule,sprinkle,ER 24hr 25 mg PO DAILY Patient Comments: TAKE 1 CAPSULE BY MOUTH EVERY DAY ibuprofen 600 mg tablet 600 mg PO Q6H PRN PRN (Reason: pain) Qty: 20 0RF baclofen 10 mg tablet 10 mg PO BID PRN (Reason: pain) clonazepam 1 mg tablet 1 mg PO TID Primary Care Provider: Blaise Wetzel Referrals: Blaise Wetzel DO [Primary Care Provider] - As soon as possible Activity Restrictions/Additional Instructions: Follow-up with either your primary care physician or your psychiatric team to see if they want to put you on other medications albumins or anxiety. Take your dose of Ativan when you get at home. You cannot take it and then drive. Print Language: Surinamese Disposition Disposition: Home, Self Care
[2025-01-04 19:22] VITALS: BP 115/88; PULSE 89; RESP 16; TEMP 36.8; O2SAT 97
[2025-01-04] MEDS: LORazepam 1 MG Tablet PO (19:25)
--- NOTE | 2025-01-04 19:25 | CM.ED ---
Social Work: Date of referral: 01/04/2025 Reason for referral: Anxiety Referred by: ED nurse Patient provided consent for social work visit. One of patient's daughter's present at patient's bedside. Patient stated she's been having increased anxiety since of of her daughter's was placed recently due to suicidal ideation with intent and a plan. Patient had an appointment with her psychiatrist, Caty joel with [facility] on Monday however stated she cancelled it because she was too emotional. Patient has presented to the ED on 12/25/24 due to anxiety, (Ativan), on 12/27/24, (Ativan), earlier this morning on 01/04/25 (ED doctor would not treat patient with Ativan), patient later called back the ED asking when the doctor from this morning was leaving and when the shift change occurs and consequently came back later on this dater after shift change (Ativan) which patient received. Patient is not currently connected to a mental health provider which social work case manager encouraged patient to get connected to since patient is experiencing such high levels of anxiety. tangled yarn worker also provided education about the importance of attending her next scheduled psychiatry appointment which patient stated she has not yet made but will make Monday. Master Merchandiser walked patient how to get established with a mental health provider which patient verbalized she understood. tangled yarn worker then left and when social work case manager returned to provide patient with a written list of providers as well as handouts of coping skills/strategies, patient had already been discharged. Carolina Hernandez, ASSEMBLY REPAIRER, MACHINE WOOD SANDER
== END 2025-01-04 19:29 | disposition home or self-care (01) ==
PROVIDERS: Emergency Provider Emergency Medicine; PCP Preventive Medicine Occupational Medicine; Visit Provider Emergency Medicine
DX: F41.9 Anxiety disorder, unspecified (principal); F31.9 Bipolar disorder, unspecified; Z79.899 Other long term (current) drug therapy; J45.909 Unspecified asthma, uncomplicated; F17.210 Nicotine dependence, cigarettes, uncomplicated; F17.290 Nicotine dependence, other tobacco product, uncomplicated
CPT/HCPCS: 99282